=== PATIENT | female | born 1950 | race Caucasian/White ===

== ENCOUNTER 2020-01-29 23:42 | Emergency (ER) | payer MEDICARE, MEDICAID, SELFPAY ==
[2020-01-30] VITALS: BP 137/67; BP 146/78; PULSE 64; RESP 16; TEMP 37.1; O2SAT 96; BMI 64.2
--- NOTE | 2020-01-30 00:17 | XR_ITS ---
EXAMINATION: XR CHEST CLINICAL INFORMATION: Rule out CHF COMPARISON: None TECHNIQUE: Frontal view of the chest was obtained. FINDINGS: There is borderline cardiac enlargement with prominent left ventricle. There is no upper zone redistribution and no evidence to suggest CHF. No infiltrates, effusions or lung masses are seen. XR/XR chest 1V IMPRESSION: No acute intrathoracic disease. Is no radiographic evidence to suggest congestive heart failure.
--- NOTE | 2020-01-30 00:18 | ED.EXTPRO ---
HPI - Extremity Problem General Chief complaint: Extremity Problem <Andrea Lemus MD - Last Filed: 01/30/20 00:35> Stated complaint: gen weakness <Andrea Lemus MD - Last Filed: 01/30/20 00:35> Time Seen by Provider: 01/30/20 00:10 <Andrea Lemus MD - Last Filed: 01/30/20 00:35> Source: patient <Andrea Lemus MD - Last Filed: 01/30/20 00:35> Mode of arrival: EMS <Andrea Lemus MD - Last Filed: 01/30/20 00:35> Limitations: no limitations <Andrea Lemus MD - Last Filed: 01/30/20 00:35> History of Present Illness HPI Narrative: 69-year-old female came in by ambulance for 2 weeks history of progressively worsening of bilateral lower extremity swelling and pain, constant for the past 2 weeks, describes pain as burning sensation rated the pain as 4/10, no radiation of the pain, no other associated symptoms shortness of breath in particular. Nothing makes the pain better or worse. <Andrea Lemus MD - Last Filed: 01/30/20 00:35> Related Data Home medications: Home Medications Medication Instructions Recorded Confirmed carvedilol 1 tab PO BID 01/30/20 01/30/20 cetirizine 2 tab PO BEDTIME 01/30/20 01/30/20 dexlansoprazole [Dexilant] 1 cap PO DAILY 01/30/20 01/30/20 dicyclomine 10 mg PO BID 01/30/20 01/30/20 diphenoxylate-atropine 1 tab PO DAILY PRN 01/30/20 01/30/20 fluticasone propion-salmeterol 1 inh INHALATION BID 01/30/20 01/30/20 [Advair Diskus] hydrochlorothiazide 1 tab PO DAILY 01/30/20 01/30/20 levothyroxine 1 tab PO DAILY 01/30/20 01/30/20 pregabalin 1 cap PO BID 01/30/20 01/30/20 ranitidine HCl mg 01/30/20 simvastatin 1 tab PO BEDTIME 01/30/20 01/30/20 <Andrea Lemus MD - Last Filed: 01/30/20 00:35> Allergies/Adverse reactions: Allergies Allergy/AdvReac Type Severity Reaction Status Date / Time celecoxib [From CELEBREX] Allergy Unknown RASH Verified 01/30/20 00:01 Latex, Natural Rubber Allergy Rash Verified 01/30/20 00:03 ibuprofen [IBUPROFEN] AdvReac Intermediate RASH Verified 01/30/20 00:01 <Andrea Lemus MD - Last Filed: 01/30/20 00:35> Review of Systems Review of Systems: All other systems are reviewed and are negative Constitutional: Reports as per HPI and Reports no additional constitutional complaints Eyes: Reports as per HPI and Reports no additional eye complaints Reports system reviewed and no additional complaints, except as documented Cardiovascular: Reports as per HPI and Reports no additional cardiovascular complaints Respiratory: Reports as per HPI and Reports no additional respiratory complaints Gastrointestinal: Reports as per HPI and Reports no additional gastrointestinal complaints Genitourinary: Reports no additional female genitourinary complaints Musculoskeletal: Reports no additional musculoskeletal complaints Skin/Breast: Reports system reviewed and no additional complaints, except as docu Psychiatric: Reports no additional psychiatric complaints Endocrine: Reports no additional endocrine complaints Hematologic/Lymphatic: Reports no additional hematologic/lymphatic complaints Allergic/Immunologic: Reports no additional allergic/immunologic complaints Reports system reviewed and no additional complaints, except as documented and Reports Abnormal speech present <Andrea Lemus MD - Last Filed: 01/30/20 00:35> [facility] Past Medical History Medical History: Medical History Asthma Diarrhea GERD (gastroesophageal reflux disease) Hypercholesteremia Hypertension Neuropathy Seasonal allergies Thyroid activity decreased <Andrea Lemus MD - Last Filed: 01/30/20 00:35> Surgical History: Surgical History H/O: hysterectomy History of cholecystectomy <Andrea Lemus MD - Last Filed: 01/30/20 00:35> Social History Social History: Social History Alcohol intake: never Smoking Status: Never smoker Use of substances other than those prescribed or required for medical reasons: No Advance Directives: No <Andrea Lemus MD - Last Filed: 01/30/20 00:35> Physical Exam Vital Signs: Vital Signs: Vital Signs Temp Pulse Resp BP Pulse Ox 01/30/20 03:15 64 18 115/54 L 95 01/30/20 00:30 63 18 152/70 H 96 01/30/20 00:00 98.8 F 64 16 137/67 96 Body Mass Index 64.2 vital signs have been reviewed as normal and appeared to be correct. Blood pressure normal. Heart rate normal. Respiration rate normal. Temperature normal. Oxygen saturation normal. <Andrea Lemus MD - Last Filed: 01/30/20 00:35> Vital Signs: Vital Signs Temp Pulse Resp BP Pulse Ox 01/30/20 03:15 64 18 115/54 L 95 01/30/20 00:30 63 18 152/70 H 96 01/30/20 00:00 98.8 F 64 16 137/67 96 Body Mass Index 64.2 <Danay Rosado MD - Last Filed: 01/30/20 04:29> Appearance: Alert. Oriented X3. No acute distress. Head: Normal external exam. Normocephalic. Atraumatic. No Benson signs noted. No raccoon eyes noted Eyes: PERRLA. EOMI. Conjunctiva and sclera normal. Eyelids normal. ENT: EAC normal. TM's Normal. Pharynx normal. Uvula midline. Moist mucous membranes. No trismus noted. No drooling noted. No muffled voice noted. Neck: Normal inspection. Neck supple. FROM. No adenopathy. Thyroid Normal. No meningeal signs. No neck mass noted. CVS: Normal heart rate and rhythm. Heart sound normal. No murmurs noted. Pulses normal throughout. Respiratory: No respiratory distress. Painless inspiration. Breath sounds normal. No wheezes/rales/rhonchi noted. Chest nontender. No accessory muscle usage noted or decreased air movement noted. Abdomen: Soft and nontender. Bowel sounds normal in all 4 quadrants. No distention noted. No organomegaly noted. No visible injury noted. Back: No CVA tenderness. Full range of motion noted. Skin: Skin warm and dry. Normal skin color. Normal skin turgor. No rashes/lesions/lacerations noted. Extremities: lower extremity pitting edema +2 bilaterally. Extremities exhibit normal range of motion. Extremities nontender. Neuro: Oriented X 3. No motor deficit. No sensory deficit. Reflexes normal. <Andrea Lemus MD - Last Filed: 01/30/20 00:35> Course Course Course Narrative: bilateral lower extremity swelling for the past 2 weeks. Will check kidney function test, will check renal function test, will check BMP in chest x-ray. <Andrea Lemus MD - Last Filed: 01/30/20 00:35> Reevaluation(s) Reevaluation #1: review lab work without acute abnormalities noted on hematologic studies and chemistries reflect a slight improvement on the BUN levels but total protein and albumin levels are consistent with patient's undergoing evaluation by nephrology for which she has an appointment on 02/04. At this time and on repeat focused exam I conclude that the most likely cause of this patient's swelling in her bilateral lower extremities is due to poor oncotic pressure complicated by body habitus and underlying medical conditions. On clinical exam as well as chest x-ray results which were reviewed I do not think that the findings are consistent with congestive heart failure. All of these results and findings were discussed with the patient at bedside and she was discharged home in stable condition with instructions to follow-up with her primary care provider this morning to establish a follow-up appointment and discussed with her primary care provider a referral to Cardiology if deemed appropriate. <Danay Rosado MD - Last Filed: 01/30/20 04:29> Time: 04:22 <Danay Rosado MD - Last Filed: 01/30/20 04:29> MDM - Extremity (Nontraumatic) Lab Data Result diagrams: : 01/30/20 01:51 01/30/20 01:51 <Andrea Lemus MD - Last Filed: 01/30/20 00:35> Labs: Lab Results 01/30/20 01/30/20 01/30/20 Range/Units 01:20 01:51 01:51 WBC 8.3 (4.8-10.8) X10*3/uL RBC 4.80 (4.20-5.50) X10*6/uL Hgb 13.5 (12.0-16.0) g/dl Hct 40.9 (37-47) % MCV 85.2 (80-98) fL MCH 28.1 (27.0-33.0) pg MCHC 33.0 (31.0-35.0) g/dl RDW 14.9 (11.0-16.0) % Plt Count 269 (160-400) X10*3/uL MPV 10.6 (9.4-12.3) fL Immature Gran % (Auto) 0.2 (0.0-0.4) % Neut % (Auto) 58.3 (45-73) % Lymph % (Auto) 28.7 (20-40) % [place] % (Auto) 8.0 (2-11) % Eos % (Auto) 4.2 H (0-4) % Baso % (Auto) 0.6 (0-2) % Lymph # (Auto) 2.4 (1.2-4.9) X10*3/uL [place] # (Auto) 0.7 (0.1-1.2) X10*3/uL Eos # (Auto) 0.4 (0.0-0.4) X10*3/uL Baso # (Auto) 0.1 (0.0-0.2) X10*3/uL Abs Immat Gran (auto) 0.02 (0.00-0.03) X10*3/uL Absolute Neuts (auto) 4.9 (2.0-8.3) X10*3/uL Absolute Nucleated RBC 0.000 (0.0-0.012) X10*3/uL Nucleated RBC % (auto) 0.0 (0.0-0.2) /100WBC Sodium 137 (135-145) mmol/L Potassium 3.7 (3.3-5.1) mmol/l Chloride 98 (96-108) mmol/L Carbon Dioxide 33 H (22-29) mmol/L Anion Gap 10 L (12-20) BUN 22 H (9-16) mg/dL Creatinine 0.87 (0.5-1.4) mg/dL Estim Creat Clear Calc 99.8 Estimated GFR > 60 Random Glucose 99 (60-115) mg/dL Calcium 7.6 L (8.4-10.2) mg/dL Total Bilirubin 0.3 (0.0-1.0) mg/dL Direct Bilirubin < 0.2 (0.0-0.5) mg/dL AST 15 (5-31) U/L ALT 8 (0-31) U/L Alkaline Phosphatase 95 (39-117) U/L B-Natriuretic Peptide (<100) pg/mL Total Protein 5.2 L (6.5-8.0) g/dL Albumin 2.6 L (3.5-5.0) g/dL Lipase 42 (8-78) U/L Coronavirus (PCR) NEGATIVE (Negative) 01/30/20 Range/Units 01:51 WBC (4.8-10.8) X10*3/uL RBC (4.20-5.50) X10*6/uL Hgb (12.0-16.0) g/dl Hct (37-47) % MCV (80-98) fL MCH (27.0-33.0) pg MCHC (31.0-35.0) g/dl RDW (11.0-16.0) % Plt Count (160-400) X10*3/uL MPV (9.4-12.3) fL Immature Gran % (Auto) (0.0-0.4) % Neut % (Auto) (45-73) % Lymph % (Auto) (20-40) % [place] % (Auto) (2-11) % Eos % (Auto) (0-4) % Baso % (Auto) (0-2) % Lymph # (Auto) (1.2-4.9) X10*3/uL [place] # (Auto) (0.1-1.2) X10*3/uL Eos # (Auto) (0.0-0.4) X10*3/uL Baso # (Auto) (0.0-0.2) X10*3/uL Abs Immat Gran (auto) (0.00-0.03) X10*3/uL Absolute Neuts (auto) (2.0-8.3) X10*3/uL Absolute Nucleated RBC (0.0-0.012) X10*3/uL Nucleated RBC % (auto) (0.0-0.2) /100WBC Sodium (135-145) mmol/L Potassium (3.3-5.1) mmol/l Chloride (96-108) mmol/L Carbon Dioxide (22-29) mmol/L Anion Gap (12-20) BUN (9-16) mg/dL Creatinine (0.5-1.4) mg/dL Estim Creat Clear Calc Estimated GFR Random Glucose (60-115) mg/dL Calcium (8.4-10.2) mg/dL Total Bilirubin (0.0-1.0) mg/dL Direct Bilirubin (0.0-0.5) mg/dL AST (5-31) U/L ALT (0-31) U/L Alkaline Phosphatase (39-117) U/L B-Natriuretic Peptide 41 (<100) pg/mL Total Protein (6.5-8.0) g/dL Albumin (3.5-5.0) g/dL Lipase (8-78) U/L Coronavirus (PCR) (Negative) <Andrea Lemus MD - Last Filed: 01/30/20 00:35> Lab Results 01/30/20 01/30/20 01/30/20 Range/Units 01:20 01:51 01:51 WBC 8.3 (4.8-10.8) X10*3/uL RBC 4.80 (4.20-5.50) X10*6/uL Hgb 13.5 (12.0-16.0) g/dl Hct 40.9 (37-47) % MCV 85.2 (80-98) fL MCH 28.1 (27.0-33.0) pg MCHC 33.0 (31.0-35.0) g/dl RDW 14.9 (11.0-16.0) % Plt Count 269 (160-400) X10*3/uL MPV 10.6 (9.4-12.3) fL Immature Gran % (Auto) 0.2 (0.0-0.4) % Neut % (Auto) 58.3 (45-73) % Lymph % (Auto) 28.7 (20-40) % [place] % (Auto) 8.0 (2-11) % Eos % (Auto) 4.2 H (0-4) % Baso % (Auto) 0.6 (0-2) % Lymph # (Auto) 2.4 (1.2-4.9) X10*3/uL [place] # (Auto) 0.7 (0.1-1.2) X10*3/uL Eos # (Auto) 0.4 (0.0-0.4) X10*3/uL Baso # (Auto) 0.1 (0.0-0.2) X10*3/uL Abs Immat Gran (auto) 0.02 (0.00-0.03) X10*3/uL Absolute Neuts (auto) 4.9 (2.0-8.3) X10*3/uL Absolute Nucleated RBC 0.000 (0.0-0.012) X10*3/uL Nucleated RBC % (auto) 0.0 (0.0-0.2) /100WBC Sodium 137 (135-145) mmol/L Potassium 3.7 (3.3-5.1) mmol/l Chloride 98 (96-108) mmol/L Carbon Dioxide 33 H (22-29) mmol/L Anion Gap 10 L (12-20) BUN 22 H (9-16) mg/dL Creatinine 0.87 (0.5-1.4) mg/dL Estim Creat Clear Calc 99.8 Estimated GFR > 60 Random Glucose 99 (60-115) mg/dL Calcium 7.6 L (8.4-10.2) mg/dL Total Bilirubin 0.3 (0.0-1.0) mg/dL Direct Bilirubin < 0.2 (0.0-0.5) mg/dL AST 15 (5-31) U/L ALT 8 (0-31) U/L Alkaline Phosphatase 95 (39-117) U/L B-Natriuretic Peptide (<100) pg/mL Total Protein 5.2 L (6.5-8.0) g/dL Albumin 2.6 L (3.5-5.0) g/dL Lipase 42 (8-78) U/L Coronavirus (PCR) NEGATIVE (Negative) 01/30/20 Range/Units 01:51 WBC (4.8-10.8) X10*3/uL RBC (4.20-5.50) X10*6/uL Hgb (12.0-16.0) g/dl Hct (37-47) % MCV (80-98) fL MCH (27.0-33.0) pg MCHC (31.0-35.0) g/dl RDW (11.0-16.0) % Plt Count (160-400) X10*3/uL MPV (9.4-12.3) fL Immature Gran % (Auto) (0.0-0.4) % Neut % (Auto) (45-73) % Lymph % (Auto) (20-40) % [place] % (Auto) (2-11) % Eos % (Auto) (0-4) % Baso % (Auto) (0-2) % Lymph # (Auto) (1.2-4.9) X10*3/uL [place] # (Auto) (0.1-1.2) X10*3/uL Eos # (Auto) (0.0-0.4) X10*3/uL Baso # (Auto) (0.0-0.2) X10*3/uL Abs Immat Gran (auto) (0.00-0.03) X10*3/uL Absolute Neuts (auto) (2.0-8.3) X10*3/uL Absolute Nucleated RBC (0.0-0.012) X10*3/uL Nucleated RBC % (auto) (0.0-0.2) /100WBC Sodium (135-145) mmol/L Potassium (3.3-5.1) mmol/l Chloride (96-108) mmol/L Carbon Dioxide (22-29) mmol/L Anion Gap (12-20) BUN (9-16) mg/dL Creatinine (0.5-1.4) mg/dL Estim Creat Clear Calc Estimated GFR Random Glucose (60-115) mg/dL Calcium (8.4-10.2) mg/dL Total Bilirubin (0.0-1.0) mg/dL Direct Bilirubin (0.0-0.5) mg/dL AST (5-31) U/L ALT (0-31) U/L Alkaline Phosphatase (39-117) U/L B-Natriuretic Peptide 41 (<100) pg/mL Total Protein (6.5-8.0) g/dL Albumin (3.5-5.0) g/dL Lipase (8-78) U/L Coronavirus (PCR) (Negative) <Danay Rosado MD - Last Filed: 01/30/20 04:29> Discharge Plan Discharge Clinical Impression: Lower extremity edema <Andrea Lemus MD - Last Filed: 01/30/20 00:35> Patient Disposition: Home, Self-Care <Andrea Lemus MD - Last Filed: 01/30/20 00:35> Instructions: Leg Edema (ED) <Andrea Lemus MD - Last Filed: 01/30/20 00:35> Additional Instructions: 1. resume all home medications as prescribed. 2. please call the office of your primary care provider this morning to establish a follow-up appointment for further outpatient evaluation and management of your bilateral lower extremity edema. The patient and/or family acknowledge understanding of results (as applicable), diagnosis, treatment plan, need for follow up, and symptoms that should prompt a return to the emergency room. <Andrea Lemus MD - Last Filed: 01/30/20 00:35> Prescriptions: No Action fluticasone propion-salmeterol [Advair Diskus] 250-50 mcg/dose Blister With Device 1 inh INHALATION BID RF: 0 carvedilol 12.5 mg tablet 1 tab PO BID RF: 0 cetirizine 10 mg tablet 2 tab PO BEDTIME RF: 0 simvastatin 5 mg tablet 1 tab PO BEDTIME RF: 0 levothyroxine 50 mcg tablet 1 tab PO DAILY RF: 0 ranitidine HCl 150 mg Tablet RF: 0 hydrochlorothiazide 25 mg tablet 1 tab PO DAILY RF: 0 dicyclomine 10 mg Capsule 10 mg PO BID RF: 0 pregabalin 150 mg capsule 1 cap PO BID RF: 0 Dexilant 60 mg capsule,biphase delayed releas 1 cap PO DAILY RF: 0 diphenoxylate-atropine 2.5-0.025 mg Tablet 1 tab PO DAILY PRN (Reason: Diarrhea) RF: 0 <Andrea Lemus MD - Last Filed: 01/30/20 00:35> Referrals: Bryanna Gama MD [Physician] - 2 days (Bilateral lower extremity edema, not c/w CHF) <Andrea Lemus MD - Last Filed: 01/30/20 00:35> Sign Out Sign Out Data: Sign Out Comment: lower ext. swelling for 2 weeks, check labs and dispo accordingly. Last updated by Andrea Lemus MD at 01/30/20 01:25 <Andrea Lemus MD - Last Filed: 01/30/20 00:35>
[2020-01-30 00:30] VITALS: BP 152/70; PULSE 63; RESP 18; O2SAT 96
[2020-01-30 01:55] LABS: Basophils Absolute Auto 0.1 X10*3/uL (0.0-0.2); Basophils Percent Auto 0.6 % (0-2); Eosinophils Absolute Auto 0.4 X10*3/uL (0.0-0.4); Eosinophils Percent Auto 4.2 % (0-4); Hematocrit 40.9 % (37-47); Hemoglobin 13.5 g/dl (12.0-16.0); Imm Gran Abs Auto 0.02 X10*3/uL (0.00-0.03); Imm Gran Pct Auto 0.2 % (0.0-0.4); Lymphocytes Absolute Auto 2.4 X10*3/uL (1.2-4.9); Lymphocytes Percent Auto 28.7 % (20-40); MANUAL DIFF FLAG NO; Mean Corpuscular Hemoglobin 28.1 pg (27.0-33.0); Mean Corpuscular Volume 85.2 fL (80-98); Mean Platelet Volume 10.6 fL (9.4-12.3); Monocytes Absolute Auto 0.7 X10*3/uL (0.1-1.2); Neutrophils Absolute Auto 4.9 X10*3/uL (2.0-8.3); Neutrophils Percent Auto 58.3 % (45-73); Platelet Count 269 X10*3/uL (160-400); Red Cell Distribution Width 14.9 % (11.0-16.0); White Blood Count 8.3 X10*3/uL (4.8-10.8)
[2020-01-30 02:19] LABS: Alanine Aminotransferase 8 U/L (0-31); Albumin Level 2.6 g/dL (3.5-5.0); Alkaline Phosphatase 95 U/L (39-117); Anion Gap 10 (12-20); Aspartate Amino Transferase 15 U/L (5-31); Bilirubin Direct < 0.2 mg/dL (0.0-0.5); Bilirubin Total 0.3 mg/dL (0.0-1.0); Blood Urea Nitrogen 22 mg/dL (9-16); Calcium 7.6 mg/dL (8.4-10.2); Carbon Dioxide 33 mmol/L (22-29); Chloride 98 mmol/L (96-108); Creatinine Clr Calc Pharmacy 99.8; Estimated Glomerular Filt Rate > 60; Glucose Random 99 mg/dL (60-115); Lipase 42 U/L (8-78); Potassium 3.7 mmol/l (3.3-5.1); Sodium 137 mmol/L (135-145); Total Protein 5.2 g/dL (6.5-8.0)
[2020-01-30 02:21] LABS: B Type Natriuretic Peptide 41 pg/mL (<100)
[2020-01-30 02:35] LABS: SARS COV2 PCR INHOUSE NEGATIVE (Negative)
[2020-01-30 03:15] VITALS: BP 115/54; PULSE 64; RESP 18; O2SAT 95
== END 2020-01-30 05:16 | disposition home or self-care (01) ==
PROVIDERS: Emergency Provider Emergency Medicine
DX: R60.0 Localized edema (principal); Z20.828 Contact with and (suspected) exposure to other viral communicable diseases; M79.662 Pain in left lower leg; M79.661 Pain in right lower leg; I10 Essential (primary) hypertension; Z79.899 Other long term (current) drug therapy
CPT/HCPCS: 36415; 71045; 80048; 80076; 83690; 83880; 85025; 87635; 99283; 99284

== ENCOUNTER 2020-07-30 01:27 | Inpatient (IN) | payer MEDICARE, MEDICAID, SELFPAY ==
[2020-07-30] VITALS (21 sets, daily range): BP systolic 106–180; BP diastolic 49–107; PULSE 68–86; RESP 9–21; TEMP 36.7–37.1; O2SAT 81–100; BMI 62.1
--- NOTE | ~2020-07-30 | CT_ITS ---
EXAMINATION: CT ANGIOGRAM OF THE CHEST WITH AND WITHOUT CONTRAST (CT PULMONARY ANGIOGRAM FOR PE) CLINICAL INFORMATION: Reason for Exam hypoxia COMPARISON: Radiographs from the same date. Abdominal CT dated 01/21/2019 TECHNIQUE: Prior to contrast administration, noncontrast localization images were obtained. Subsequently, multidetector volumetric imaging was performed from the thoracic inlet to below the diaphragms following the administration of 100 mL Omnipaque 350 intravenous contrast. No contrast reaction reported Sagittal, coronal, and MIP oblique sagittal reformatted images were obtained on the CT workstation, uploaded to PACS, and reviewed. This CT examination was performed using dose optimization techniques as appropriate, variously including the following: *Automated exposure control *Adjustment of mA and/or kV according to patient size (this includes techniques or standardized protocols for targeted exams where dose is matched to indication/reason for exam; i.e. extremities or head) *Use of iterative reconstruction technique Total exam dose-length product 560 mGy-cm FINDINGS: QUALITY OF STUDY/CONTRAST BOLUS: Satisfactory to the proximal segmental level. Evaluation of the more distal pulmonary arteries is limited by bolus timing and respiratory motion. PULMONARY ARTERIES: No central or proximal segmental pulmonary emboli. THORACIC AORTA: No aneurysm or dissection. Mild atherosclerotic calcifications in the descending thoracic aorta. LUNG: There is airspace consolidation within the superior segments of the bilateral lower lobes in addition to the posterior basilar segments. Air bronchograms are present in this region. No appreciable bronchial opacities are identified. There are more patchy groundglass airspace opacities in a perihilar distribution bilaterally throughout all lobes. No discrete nodules. Assessment of the pulmonary parenchyma somewhat limited by respiratory motion. PLEURA: No effusions. MEDIASTINUM: There is a small to moderate mixed type hiatal hernia. The esophagus is diffusely fluid-filled, consistent with gastroesophageal reflux. Heart is within normal limits in size. No pericardial effusion. No adenopathy. No evidence of septal bowing or right heart strain. CHEST WALL/AXILLA: No axillary or internal mammary lymphadenopathy. OSSEOUS STRUCTURES: There is diffuse ankylosis of the thoracic spine both of the vertebral bodies and posterior elements. This has the appearance of ankylosing spondylitis, though diffuse idiopathic skeletal hyperostosis could also have this appearance. No acute fractures are identified. Mild hyperkyphosis and mild to moderate superimposed degenerative disc disease. UPPER ABDOMEN: Cholecystectomy clips are present in the gallbladder fossa. No reflux of contrast into the hepatic veins to suggest elevated right heart pressures. CT/CT angio chest PE protocol IMPRESSION: 1. No evidence of pulmonary emboli to the proximal segmental level. Assessment of the more distal branches is limited by respiratory motion. 2. Dependent consolidation within the segmental consolidation within the lower lobes bilaterally with more patchy multifocal perihilar groundglass opacities. This finding may be due to multifocal pneumonia. Aspiration is also on the differential given the dependent nature of the consolidations, though the airways appear relatively clear. Imaging features can be seen with COVID-19 pneumonia, though are nonspecific and can occur with a variety of infectious and noninfectious processes. 3. Small to moderate-sized mixed type hiatal hernia with a mildly distended and fluid-filled thoracic esophagus, suggesting gastroesophageal reflux. The poses to aspiration. VTE: negative
--- NOTE | ~2020-07-30 | XR_ITS ---
EXAMINATION: XR CHEST CLINICAL INFORMATION: Dyspnea COMPARISON: 01/30/2020 TECHNIQUE: Frontal view of the chest was obtained. FINDINGS: Cardiac leads overlie the chest. Lung volumes are low. Bronchial wall thickening noted. There is no focal consolidation, edema, or effusion. No pneumothorax. The cardiomediastinal silhouette is within normal limits. No acute osseous abnormality. XR/XR chest 1V IMPRESSION: No dense consolidation. Bronchial wall thickening can be seen with a small airways process such as asthma or atypical/viral infection.
--- NOTE | ~2020-07-30 | XR_ITS ---
EXAMINATION: XR CHEST CLINICAL INFORMATION: Evaluate for pneumonia COMPARISON: CT scan of July 30, 2020 and chest x-ray of July 30, 2020 TECHNIQUE: AP portable view of the chest was obtained. FINDINGS: There are some bilateral regions of patchy disease present with slightly more confluent region of disease in the retrocardiac region of the left lower lung. No pneumothorax or significant pleural effusion. Heart normal size. No evidence of pulmonary edema. Findings appear similar to previous chest x-ray. XR/XR chest 1V IMPRESSION: Bilateral regions of interstitial and airspace disease.
--- NOTE | 2020-07-30 01:46 | ECG_ITS ---
Test Reason : SOB Blood Pressure : / mmHG Vent. Rate : 082 BPM Atrial Rate : 082 BPM P-R Int : 230 ms QRS Dur : 112 ms QT Int : 424 ms P-R-T Axes : 073 -35 084 degrees QTc Int : 495 ms Sinus rhythm with 1st degree A-V block Left axis deviation Moderate voltage criteria for LVH, may be normal variant Prolonged QT Abnormal ECG When compared with ECG of 21-JAN-2019 16:17, DC interval has increased Referred By: Danay Rosado Electronically Signed By:Jem Viera
--- NOTE | 2020-07-30 01:49 | ED_ITS ---
HPI - SOB/Dyspnea General Chief Complaint: Dyspnea Stated Complaint: diff breathing s/p vomiting Time Seen by Provider: 07/30/20 01:37 Source: patient Mode of arrival: EMS History of Present Illness HPI Narrative: 69-year-old female brought in by EMS after she states that she suddenly had an episode of nausea and vomiting and is unclear why as she states she has not been suffering from fever, chills, abdominal discomfort, diarrhea, but does states she has had urinary burning. She states that after the episode of vomiting she developed difficulty breathing but otherwise denies chest pain/palpitations. Related Data Home Medications Medication Instructions Recorded Confirmed carvedilol 1 tab PO BID 01/30/20 01/30/20 cetirizine 2 tab PO BEDTIME 01/30/20 01/30/20 dexlansoprazole [Dexilant] 1 cap PO DAILY 01/30/20 01/30/20 dicyclomine 10 mg PO BID 01/30/20 01/30/20 diphenoxylate-atropine 1 tab PO DAILY PRN 01/30/20 01/30/20 fluticasone propion-salmeterol 1 inh INHALATION BID 01/30/20 01/30/20 [Advair Diskus] hydrochlorothiazide 1 tab PO DAILY 01/30/20 01/30/20 levothyroxine 1 tab PO DAILY 01/30/20 01/30/20 pregabalin 1 cap PO BID 01/30/20 01/30/20 ranitidine HCl mg 01/30/20 simvastatin 1 tab PO BEDTIME 01/30/20 01/30/20 Allergies Allergy/AdvReac Type Severity Reaction Status Date / Time celecoxib [From CELEBREX] Allergy Unknown RASH Verified 07/30/20 06:01 Latex, Natural Rubber Allergy Rash Verified 07/30/20 06:01 ibuprofen [IBUPROFEN] AdvReac Intermediate RASH Verified 07/30/20 06:01 Review of Systems Review of Systems: Pertinent positives and negatives as stated in HPI 10 point review of systems is otherwise negative. [facility] Past Medical History Source: nursing notes reviewed Medical History Asthma Diarrhea GERD (gastroesophageal reflux disease) Hypercholesteremia Hypertension Neuropathy Seasonal allergies Thyroid activity decreased Surgical History H/O: hysterectomy History of cholecystectomy Social History Social History Alcohol intake: never Smoking Status: Never smoker Advance Directives: No Physical Exam Vital Signs: Vital Signs: Last Vital Signs Temp 98.7 F 07/30/20 01:35 Pulse 78 07/30/20 05:58 Resp 12 07/30/20 06:02 BP 144/72 H 07/30/20 04:30 Pulse Ox 93 07/30/20 06:12 Body Mass Index 62.1 VITAL SIGNS: Reviewed. GENERAL: Morbidly obese, Well developed, appears older than stated age, in no acute distress. HEAD: Normocephalic/atraumatic, EYES: PERRLA, EOMI OROPHARYNX: no oral lesions noted, posterior pharynx clear, moist mucosa NECK: Supple, no adenopathy LUNGS: Increased work of breathing, no retractions, decrease breath sounds bibasilar, some expiratory wheezing as well as scattered rhonchi noted. SpO2<90> her% non-rebreather CARDIOVASCULAR: Regular rate and rhythm without noted murmurs ABDOMEN: Obese, Soft, non-tender, non-distended with bowel sounds. NEUROLOGIC: Alert and oriented x 4. Strength and sensation to light touch were grossly intact x 4. Course Course Course Narrative: 69-year-old female with history and clinical presentation consistent with possible reactive airway after irritation by vomiting, asthma exacerbation, UTI, COVID-19, ?aspiration pneumonia, CHF exacerbation. On review of all investigations patient has had acute respiratory failure secondary to asthma exacerbation likely induced by episode of vomiting and questionable partial aspiration. COVID-19 is negative and patient was treated with antibiotics, however lactic acid and blood pressure remained stable therefore fluids were held. This case was discussed with inpatient hospitalist team who is agreeable for admission.Patient has had no for further episodes of nausea vomiting and currently has no acute complaints. However, she is still requiring high-flow supplemental oxygen at this time. MDM - SOB/Dyspnea Lab Data Result diagrams: 07/30/20 02:18 07/30/20 02:18 Labs: Lab Results 07/30/20 07/30/20 07/30/20 Range/Units 02:18 02:18 02:18 WBC 9.7 (4.8-10.8) X10*3/uL RBC 4.42 (4.20-5.50) X10*6/uL Hgb 12.8 (12.0-16.0) g/dl Hct 40.1 (37-47) % MCV 90.7 (80-98) fL MCH 29.0 (27.0-33.0) pg MCHC 31.9 (31.0-35.0) g/dl RDW 13.6 (11.0-16.0) % Plt Count 264 (160-400) X10*3/uL MPV 10.4 (9.4-12.3) fL Immature Gran % (Auto) 0.2 (0.0-0.4) % Neut % (Auto) 88.2 H (45-73) % Lymph % (Auto) 7.5 L (20-40) % Hamilton % (Auto) 2.5 (2-11) % Eos % (Auto) 1.4 (0-4) % Baso % (Auto) 0.2 (0-2) % Lymph # (Auto) 0.7 L (1.2-4.9) X10*3/uL Hamilton # (Auto) 0.2 (0.1-1.2) X10*3/uL Eos # (Auto) 0.1 (0.0-0.4) X10*3/uL Baso # (Auto) 0.0 (0.0-0.2) X10*3/uL Abs Immat Gran (auto) 0.02 (0.00-0.03) X10*3/uL Absolute Neuts (auto) 8.5 H (2.0-8.3) X10*3/uL Absolute Nucleated RBC 0.000 (0.0-0.012) X10*3/uL Nucleated RBC % (auto) 0.0 (0.0-0.2) /100WBC VBG pH (7.32-7.43) VBG pCO2 mmHg VBG pO2 mmHg VBG HCO3 (22-26) mmol/L VBG O2 Saturation % VBG Base Excess mmol/L Sodium 139 (135-145) mmol/L Potassium 4.6 (3.3-5.1) mmol/L Chloride 100 (96-108) mmol/L Carbon Dioxide 27 (22-29) mmol/L Anion Gap 17 (12-20) BUN 27 H (9-16) mg/dL Creatinine 1.13 (0.5-1.4) mg/dL Estim Creat Clear Calc 75.1 Estimated GFR 48 Random Glucose 138 H D (60-115) mg/dL Lactic Acid (0.5-2.0) mmol/L Calcium 8.2 L D (8.4-10.2) mg/dL Magnesium 1.9 (1.6-2.6) mg/dL Total Bilirubin 0.9 (0.0-1.0) mg/dL AST 17 (5-31) U/L ALT 10 (0-31) U/L Alkaline Phosphatase 96 (39-117) U/L B-Natriuretic Peptide (<100) pg/mL Total Protein 6.3 L D (6.5-8.0) g/dL Albumin 3.3 L D (3.5-5.0) g/dL Lipase 18 (8-78) U/L Urine Color Urine Appearance Urine pH (5.0-8.0) Ur Specific Skippers (1.005-1.025) Urine Protein (NEG-TRACE) MG/DL Urine Glucose (UA) (NEG) MG/DL Urine Ketones (NEG) MG/DL Urine Blood (NEG) Urine Nitrite (NEG) Ur Leukocyte Esterase (NEG) Urine RBC (0) /HPF Urine WBC (0-4) /HPF Ur Squamous Epith Cells /LPF Amorphous Sediment /LPF Urine Bacteria /LPF Urine Mucus /LPF Urine Yeast /HPF Coronavirus (PCR) NEGATIVE (Negative) Influenza Type A (PCR) NEGATIVE (Negative) Influenza Type B (PCR) NEGATIVE (Negative) RSV RNA Qual (PCR) NEGATIVE (Negative) 07/30/20 07/30/20 07/30/20 Range/Units 02:18 02:18 02:18 WBC (4.8-10.8) X10*3/uL RBC (4.20-5.50) X10*6/uL Hgb (12.0-16.0) g/dl Hct (37-47) % MCV (80-98) fL MCH (27.0-33.0) pg MCHC (31.0-35.0) g/dl RDW (11.0-16.0) % Plt Count (160-400) X10*3/uL MPV (9.4-12.3) fL Immature Gran % (Auto) (0.0-0.4) % Neut % (Auto) (45-73) % Lymph % (Auto) (20-40) % Hamilton % (Auto) (2-11) % Eos % (Auto) (0-4) % Baso % (Auto) (0-2) % Lymph # (Auto) (1.2-4.9) X10*3/uL Hamilton # (Auto) (0.1-1.2) X10*3/uL Eos # (Auto) (0.0-0.4) X10*3/uL Baso # (Auto) (0.0-0.2) X10*3/uL Abs Immat Gran (auto) (0.00-0.03) X10*3/uL Absolute Neuts (auto) (2.0-8.3) X10*3/uL Absolute Nucleated RBC (0.0-0.012) X10*3/uL Nucleated RBC % (auto) (0.0-0.2) /100WBC VBG pH (7.32-7.43) VBG pCO2 mmHg VBG pO2 mmHg VBG HCO3 (22-26) mmol/L VBG O2 Saturation % VBG Base Excess mmol/L Sodium (135-145) mmol/L Potassium (3.3-5.1) mmol/L Chloride (96-108) mmol/L Carbon Dioxide (22-29) mmol/L Anion Gap (12-20) BUN (9-16) mg/dL Creatinine (0.5-1.4) mg/dL Estim Creat Clear Calc Estimated GFR Random Glucose (60-115) mg/dL Lactic Acid 0.7 (0.5-2.0) mmol/L Calcium (8.4-10.2) mg/dL Magnesium Cancelled (1.6-2.6) mg/dL Total Bilirubin (0.0-1.0) mg/dL AST (5-31) U/L ALT (0-31) U/L Alkaline Phosphatase (39-117) U/L B-Natriuretic Peptide 60 (<100) pg/mL Total Protein (6.5-8.0) g/dL Albumin (3.5-5.0) g/dL Lipase Cancelled (8-78) U/L Urine Color Urine Appearance Urine pH (5.0-8.0) Ur Specific Skippers (1.005-1.025) Urine Protein (NEG-TRACE) MG/DL Urine Glucose (UA) (NEG) MG/DL Urine Ketones (NEG) MG/DL Urine Blood (NEG) Urine Nitrite (NEG) Ur Leukocyte Esterase (NEG) Urine RBC (0) /HPF Urine WBC (0-4) /HPF Ur Squamous Epith Cells /LPF Amorphous Sediment /LPF Urine Bacteria /LPF Urine Mucus /LPF Urine Yeast /HPF Coronavirus (PCR) (Negative) Influenza Type A (PCR) (Negative) Influenza Type B (PCR) (Negative) RSV RNA Qual (PCR) (Negative) 07/30/20 07/30/20 Range/Units 02:20 02:48 WBC (4.8-10.8) X10*3/uL RBC (4.20-5.50) X10*6/uL Hgb (12.0-16.0) g/dl Hct (37-47) % MCV (80-98) fL MCH (27.0-33.0) pg MCHC (31.0-35.0) g/dl RDW (11.0-16.0) % Plt Count (160-400) X10*3/uL MPV (9.4-12.3) fL Immature Gran % (Auto) (0.0-0.4) % Neut % (Auto) (45-73) % Lymph % (Auto) (20-40) % Hamilton % (Auto) (2-11) % Eos % (Auto) (0-4) % Baso % (Auto) (0-2) % Lymph # (Auto) (1.2-4.9) X10*3/uL Hamilton # (Auto) (0.1-1.2) X10*3/uL Eos # (Auto) (0.0-0.4) X10*3/uL Baso # (Auto) (0.0-0.2) X10*3/uL Abs Immat Gran (auto) (0.00-0.03) X10*3/uL Absolute Neuts (auto) (2.0-8.3) X10*3/uL Absolute Nucleated RBC (0.0-0.012) X10*3/uL Nucleated RBC % (auto) (0.0-0.2) /100WBC VBG pH 7.29 L (7.32-7.43) VBG pCO2 66 mmHg VBG pO2 44 mmHg VBG HCO3 32 H (22-26) mmol/L VBG O2 Saturation 69.0 % VBG Base Excess 3.6 mmol/L Sodium (135-145) mmol/L Potassium (3.3-5.1) mmol/L Chloride (96-108) mmol/L Carbon Dioxide (22-29) mmol/L Anion Gap (12-20) BUN (9-16) mg/dL Creatinine (0.5-1.4) mg/dL Estim Creat Clear Calc Estimated GFR Random Glucose (60-115) mg/dL Lactic Acid (0.5-2.0) mmol/L Calcium (8.4-10.2) mg/dL Magnesium (1.6-2.6) mg/dL Total Bilirubin (0.0-1.0) mg/dL AST (5-31) U/L ALT (0-31) U/L Alkaline Phosphatase (39-117) U/L B-Natriuretic Peptide (<100) pg/mL Total Protein (6.5-8.0) g/dL Albumin (3.5-5.0) g/dL Lipase (8-78) U/L Urine Color YELLOW Urine Appearance CLEAR Urine pH 5.5 (5.0-8.0) Ur Specific Skippers >= 1.030 H (1.005-1.025) Urine Protein 2+ H (NEG-TRACE) MG/DL Urine Glucose (UA) NEG (NEG) MG/DL Urine Ketones NEG (NEG) MG/DL Urine Blood 1+ H (NEG) Urine Nitrite NEG (NEG) Ur Leukocyte Esterase NEG (NEG) Urine RBC 5-9 H (0) /HPF Urine WBC 0-2 (0-4) /HPF Ur Squamous Epith Cells 1+ /LPF Amorphous Sediment TRACE /LPF Urine Bacteria NONE /LPF Urine Mucus 2+ /LPF Urine Yeast TRACE /HPF Coronavirus (PCR) (Negative) Influenza Type A (PCR) (Negative) Influenza Type B (PCR) (Negative) RSV RNA Qual (PCR) (Negative) ECG Data Attestation: I personally reviewed and interpreted this ECG as follows: Prior ECG tracings: available for review (01/21/2019 no acute changes on comparison) Interpretation: Sinus rhythm with first-degree AV block, HR -82, no evidence of acute ischemia, ND-230/QTC -495 Discharge Plan Discharge Clinical Impression: Asthma with exacerbation, Acute respiratory failure Patient Disposition: Admitted As Inpatient
--- NOTE | 2020-07-30 01:58 | PC.NURSE ---
patient was placed on high flow at 100% 02 to get the sp02 to 93%
[2020-07-30 02:28] LABS: Venous Blood Gas Refer to POC result
[2020-07-30 02:28] LABS: MANUAL DIFF FLAG NO
[2020-07-30 02:29] LABS: VBG Base Excess 3.6 mmol/L; VBG HCO3 32 mmol/L (22-26); VBG pCO2 66 mmHg; VBG pH 7.29 (7.32-7.43); VBG pO2 44 mmHg
[2020-07-30 02:31] LABS: Basophils Percent Auto 0.2 % (0-2); Eosinophils Absolute Auto 0.1 X10*3/uL (0.0-0.4); Eosinophils Percent Auto 1.4 % (0-4); Hematocrit 40.1 % (37-47); Hemoglobin 12.8 g/dl (12.0-16.0); Imm Gran Abs Auto 0.02 X10*3/uL (0.00-0.03); Imm Gran Pct Auto 0.2 % (0.0-0.4); Lymphocytes Absolute Auto 0.7 X10*3/uL (1.2-4.9); Lymphocytes Percent Auto 7.5 % (20-40); Mean Corpuscular HGB Conc 31.9 g/dl (31.0-35.0); Mean Corpuscular Volume 90.7 fL (80-98); Mean Platelet Volume 10.4 fL (9.4-12.3); Monocytes Absolute Auto 0.2 X10*3/uL (0.1-1.2); Monocytes Percent Auto 2.5 % (2-11); Neutrophils Absolute Auto 8.5 X10*3/uL (2.0-8.3); Neutrophils Percent Auto 88.2 % (45-73); Platelet Count 264 X10*3/uL (160-400); Red Blood Count 4.42 X10*6/uL (4.20-5.50); Red Cell Distribution Width 13.6 % (11.0-16.0); White Blood Count 9.7 X10*3/uL (4.8-10.8)
[2020-07-30 02:59] LABS: Lactic Acid 0.7 mmol/L (0.5-2.0)
[2020-07-30 03:01] LABS: Appearance Urine CLEAR; Color Urine YELLOW; Glucose Urine UA NEG (NEG); Leukocyte Esterase Urine NEG (NEG); Nitrite Urine NEG (NEG); PH 5.5 (5.0-8.0); Specific Gravity - Urine >= 1.030 (1.005-1.025); Urine Blood 1+ (NEG); Urine Ketones NEG (NEG); Urine Protein 2+ MG/DL (NEG-TRACE)
[2020-07-30 03:03] LABS: Alanine Aminotransferase 10 U/L (0-31); Albumin Level 3.3 g/dL (3.5-5.0); Alkaline Phosphatase 96 U/L (39-117); Anion Gap 17 (12-20); Aspartate Amino Transferase 17 U/L (5-31); Bilirubin Total 0.9 mg/dL (0.0-1.0); Blood Urea Nitrogen 27 mg/dL (9-16); Calcium 8.2 mg/dL (8.4-10.2); Carbon Dioxide 27 mmol/L (22-29); Chloride 100 mmol/L (96-108); Creatinine Clr Calc Pharmacy 75.1; Estimated Glomerular Filt Rate 48; Glucose Random 138 mg/dL (60-115); Potassium 4.6 mmol/L (3.3-5.1); Sodium 139 mmol/L (135-145); Total Protein 6.3 g/dL (6.5-8.0)
[2020-07-30 03:07] LABS: Lipase 18 U/L (8-78); Magnesium 1.9 mg/dL (1.6-2.6)
[2020-07-30 03:09] LABS: B Type Natriuretic Peptide 60 pg/mL (<100)
[2020-07-30 03:10] LABS: Influenza A PCR NEGATIVE (Negative); Influenza B PCR NEGATIVE (Negative); Resp Syncy Virus RNA Qual PCR NEGATIVE (Negative); SARS COV2 PCR INHOUSE NEGATIVE (Negative)
[2020-07-30 03:20] LABS: Mucus Urine 2+ /LPF; Squamous Epithelial Cell Urine 1+ /LPF; WBC Urine 0-2 /HPF (0-4)
[2020-07-30 03:21] LABS: Amorphous Sediment Urine TRACE /LPF
--- NOTE | 2020-07-30 03:30 | PC.NURSE ---
Dr Rosado is aware that an IV was unable to be obtained- per the patient she normally needs an US guided IV- Dr Rosado will place
--- NOTE | 2020-07-30 05:12 | PC.NURSE ---
Candace RN is at bedside attemting to obtain an IV
[2020-07-30] MEDS: methylPREDNISolone Sod Succ 125 MG/2 ML VIAL IVPUSH (05:35)
--- NOTE | 2020-07-30 05:49 | PC.NURSE ---
patient was placed on 6L via NC- sp02 decreased frm 7-100% on the highflow at 90% FI02 down to 90-91% on 6L via NC. Patient was placed back on a highflow 02
[2020-07-30] MEDS: Albuterol Sulfate (0.083%) 2.5 MG/3 ML VIAL.NEB 5 MG INHALE (06:10)
[2020-07-30] MEDS: Piperacillin Sodium/Tazobactam 3.375 GM in 0.9 % Sodium Chloride 50 ML IV (06:26)
[2020-07-30 09:07] LABS: ABG Refer to POC result
[2020-07-30 09:07] LABS: ABG Base Excess 3.4 mmol/L; ABG HCO3 31 mmol/L (22-26); ABG pCO2 62 mmHg (32-45); ABG pCO2 TC 61 mmHg (32-45); ABG pH 7.31 (7.35-7.45); ABG pH TC 7.31 (7.35-7.45); ABG pO2 56 mmHg (83-108); ABG pO2 TC 55 (83-108)
--- NOTE | 2020-07-30 10:14 | PM.IMHP ---
History of Present Illness Date of Service: 07/30/20 Chief Complaint: shortness of breath 69-year-old female morbidly obese BMI 62, MISSY uses biPAP at home, HTN, , hypothyroidism, GERD, likly hypoventilation syndrome. She presented with an episode of nause and vomitting without other abdominal complaint . She was noted to be in acute hyhpoxic respiratory failure, and ABG showed CO2 retention. She was tried on BiPAP in ED and remained very somnolent and therefore requested an ICU evaluation. Review of Systems Review of Systems: Yes Unobtainable due to mental status (was very somnolent at time of evaluation) [facility] Medical History Asthma Diarrhea GERD (gastroesophageal reflux disease) Hypercholesteremia Hypertension Neuropathy Seasonal allergies Thyroid activity decreased Surgical History H/O: hysterectomy History of cholecystectomy Social History Household Members: Other Housing: Apartment Alcohol intake: unknown Smoking Status: Never smoker service: No Current occupational status: retired Meds Allergies Allergy/AdvReac Type Severity Reaction Status Date / Time celecoxib [From CELEBREX] Allergy Unknown RASH Verified 07/30/20 06:01 Latex, Natural Rubber Allergy Rash Verified 07/30/20 06:01 ibuprofen [IBUPROFEN] AdvReac Intermediate RASH Verified 07/30/20 06:01 Active Medications: Current Medications Generic Name Dose Route Start Last Admin Trade Name Freq PRN Reason Stop Dose Admin Enoxaparin Sodium 40 mg 07/30/20 10:15 Enoxaparin Sodium 40 Mg/0.4 Ml Syringe SUBCUT Q24H [facility] Pharmacy Consult 1 each 07/30/20 07:02 Consult Rx Perform Med Rec MISCELLANE ONCE PRN Consult order Sodium Chloride 3 ml 07/30/20 16:00 0.9 % Sodium Chloride Flush 3 Ml Syringe IVFLUSH QSHIFT [facility] Home Medications Medication Instructions Recorded Confirmed Last Taken Type dexlansoprazole [Dexilant] 60 mg PO DAILY 01/30/20 07/30/20 Unknown History diphenoxylate-atropine 1 tab PO TID PRN 01/30/20 07/30/20 01/29/20 11:45 History hydrochlorothiazide 1 tab PO DAILY 01/30/20 07/30/20 Unknown History levothyroxine 1 tab PO DAILY 01/30/20 07/30/20 Unknown History pregabalin 1 cap PO BID 01/30/20 07/30/20 Unknown History simvastatin 5 mg PO BEDTIME 01/30/20 07/30/20 Unknown History atorvastatin 1 tab PO DAILY 07/30/20 07/30/20 Unknown History carvedilol 1 tab PO BID 07/30/20 07/30/20 Unknown History ketoconazole 1 appl TOPICAL BID 07/30/20 07/30/20 Unknown History losartan 1 tab PO DAILY 07/30/20 07/30/20 Unknown History triamcinolone acetonide [Nasal 2 spray INTRANASAL DAILY 07/30/20 07/30/20 Unknown History Allergy] Physical Exam Vital Signs and Narrative: Vital Signs: Last Vital Signs Temp 98.7 F 07/30/20 01:35 Pulse 78 07/30/20 08:00 Resp 19 07/30/20 09:33 BP 128/69 07/30/20 08:00 Pulse Ox 90 L 07/30/20 08:00 Body Mass Index 62.1 Const: Other: Constitutional somnolent but arousable and falls back to sleep, morbidly obese Neck Supple, No lymphadenopathy Cardiovascular RRR, No M/R/G, S1 S2, No S3 S4, No pedal edema Respiratory Lungs clear, No respiratory distress Gastrointestinal Non tender, Non-distended Skin No rash Neurological Alert & oriented x3 Psychological Appropriate affect Results Labs CBC and Chem 7: 07/31/20 05:39 07/31/20 05:39 Labs: Laboratory Results - last 24 hr 07/30/20 07/30/20 07/30/20 02:18 02:18 02:18 MCV 90.7 MCH 29.0 MCHC 31.9 RDW 13.6 Plt Count 264 MPV 10.4 Immature Gran % (Auto) 0.2 Neut % (Auto) 88.2 H Lymph % (Auto) 7.5 L Barnes % (Auto) 2.5 Eos % (Auto) 1.4 Baso % (Auto) 0.2 Lymph # (Auto) 0.7 L Barnes # (Auto) 0.2 Eos # (Auto) 0.1 Baso # (Auto) 0.0 Abs Immat Gran (auto) 0.02 Absolute Neuts (auto) 8.5 H Absolute Nucleated RBC 0.000 Nucleated RBC % (auto) 0.0 O2 Saturation ABG pH at Pt Temp ABG pH (Temp Correct) ABG pCO2 at Pt Temp ABG pCO2 (Temp Corrct ABG pO2 at Pt Temp ABG pO2 (Temp Correct ABG HCO3 ABG Base Excess (Actual) VBG pH VBG pCO2 VBG pO2 VBG HCO3 VBG O2 Saturation VBG Base Excess Anion Gap 17 Estim Creat Clear Calc 75.1 Estimated GFR 48 Random Glucose 138 H D Lactic Acid Calcium 8.2 L D Magnesium 1.9 Total Bilirubin 0.9 AST 17 ALT 10 Alkaline Phosphatase 96 B-Natriuretic Peptide Total Protein 6.3 L D Albumin 3.3 L D Lipase 18 Urine Color Urine Appearance Urine pH Ur Specific [place] Urine Protein Urine Glucose (UA) Urine Ketones Urine Blood Urine Nitrite Ur Leukocyte Esterase Urine RBC Urine WBC Ur Squamous Epith Cells Amorphous Sediment Urine Bacteria Urine Mucus Urine Yeast Coronavirus (PCR) NEGATIVE Influenza Type A (PCR) NEGATIVE Influenza Type B (PCR) NEGATIVE RSV RNA Qual (PCR) NEGATIVE 07/30/20 07/30/20 07/30/20 02:18 02:18 02:18 MCV MCH MCHC RDW Plt Count MPV Immature Gran % (Auto) Neut % (Auto) Lymph % (Auto) Barnes % (Auto) Eos % (Auto) Baso % (Auto) Lymph # (Auto) Barnes # (Auto) Eos # (Auto) Baso # (Auto) Abs Immat Gran (auto) Absolute Neuts (auto) Absolute Nucleated RBC Nucleated RBC % (auto) O2 Saturation ABG pH at Pt Temp ABG pH (Temp Correct) ABG pCO2 at Pt Temp ABG pCO2 (Temp Corrct ABG pO2 at Pt Temp ABG pO2 (Temp Correct ABG HCO3 ABG Base Excess (Actual) VBG pH VBG pCO2 VBG pO2 VBG HCO3 VBG O2 Saturation VBG Base Excess Anion Gap Estim Creat Clear Calc Estimated GFR Random Glucose Lactic Acid 0.7 Calcium Magnesium Cancelled Total Bilirubin AST ALT Alkaline Phosphatase B-Natriuretic Peptide 60 Total Protein Albumin Lipase Cancelled Urine Color Urine Appearance Urine pH Ur Specific [place] Urine Protein Urine Glucose (UA) Urine Ketones Urine Blood Urine Nitrite Ur Leukocyte Esterase Urine RBC Urine WBC Ur Squamous Epith Cells Amorphous Sediment Urine Bacteria Urine Mucus Urine Yeast Coronavirus (PCR) Influenza Type A (PCR) Influenza Type B (PCR) RSV RNA Qual (PCR) 07/30/20 07/30/20 07/30/20 02:20 02:48 08:51 MCV MCH MCHC RDW Plt Count MPV Immature Gran % (Auto) Neut % (Auto) Lymph % (Auto) Barnes % (Auto) Eos % (Auto) Baso % (Auto) Lymph # (Auto) Barnes # (Auto) Eos # (Auto) Baso # (Auto) Abs Immat Gran (auto) Absolute Neuts (auto) Absolute Nucleated RBC Nucleated RBC % (auto) O2 Saturation 86.0 ABG pH at Pt Temp 7.31 L ABG pH (Temp Correct) 7.31 L ABG pCO2 at Pt Temp 62 H* ABG pCO2 (Temp Corrct 61 H* ABG pO2 at Pt Temp 56 L ABG pO2 (Temp Correct 55 L ABG HCO3 31 H ABG Base Excess (Actual) 3.4 VBG pH 7.29 L VBG pCO2 66 VBG pO2 44 VBG HCO3 32 H VBG O2 Saturation 69.0 VBG Base Excess 3.6 Anion Gap Estim Creat Clear Calc Estimated GFR Random Glucose Lactic Acid Calcium Magnesium Total Bilirubin AST ALT Alkaline Phosphatase B-Natriuretic Peptide Total Protein Albumin Lipase Urine Color YELLOW Urine Appearance CLEAR Urine pH 5.5 Ur Specific [place] >= 1.030 H Urine Protein 2+ H Urine Glucose (UA) NEG Urine Ketones NEG Urine Blood 1+ H Urine Nitrite NEG Ur Leukocyte Esterase NEG Urine RBC 5-9 H Urine WBC 0-2 Ur Squamous Epith Cells 1+ Amorphous Sediment TRACE Urine Bacteria NONE Urine Mucus 2+ Urine Yeast TRACE Coronavirus (PCR) Influenza Type A (PCR) Influenza Type B (PCR) RSV RNA Qual (PCR) Imaging Radiologist's Impressions: Impressions Chest X-Ray 07/30/20 01:47 IMPRESSION: No dense consolidation. Bronchial wall thickening can be seen with a small airways process such as asthma or atypical/viral infection. Assessment and Plan (1) Obesity hypoventilation syndrome: Status: Acute (2) Obstructive sleep apnea: Status: Acute (3) Acute on chronic heart failure: Status: Acute (4) Acute on chronic respiratory failure with hypoxia and hypercapnia: Status: Acute (5) Asthma with exacerbation: Status: Acute (6) Acute respiratory failure: Status: Acute 69-year-old female morbidly obese BMI 62, MISSY uses biPAP at home, HTN, , hypothyroidism, GERD, likly hypoventilation syndrome. She presented with an episode of nause and vomitting without other abdominal complaint and admitted for acute hypoxic respiratory failure likely related to hypovention, MISSY, asthma. No covid, plan: BiPAP ICU consult Neb treatment There does not appear to be underlying PNA negative covid Hypothyroidism--continue Levothyroxine HLD--Lipitor HTN--continue Losartan, HCTZ, Coreg Morbid obesity--should take weight loss meaures as obesity affecting other health issues Lovenox for DVT prophylaxis.
[2020-07-30] MEDS: iohexoL 350 MG/ML 100 ML INFUS..BTL IV (10:23)
[2020-07-30] MEDS: Nystatin Powder 15 GM BOTTLE 1 APPL TOPICAL ×2 (11:57→20:52)
[2020-07-30] MEDS: Enoxaparin Sodium 40 MG/0.4 ML SYRINGE SUBCUT (11:58)
--- NOTE | 2020-07-30 13:45 | CA_ITS ---
Transthoracic Echocardiogram Patient (Last, First, Middle): Jocelynn Fernando, Gender: Female Date of : 1950 Age: 69 Procedure Date: 07/30/2020 Procedure Type: Transthoracic Echocardiogram Location: ER Height: 162.56 cm Weight: 164.4 kg BSA: 2.52 m2 Heart Rate: bpm BP: 96 / 33 mmHg [place] Worker: JOSE E Referring MD: Kevin Okeefe MD Symptoms: heart failure Study Quality: Technically Difficult Conclusions: - Normal left ventricular size and systolic function. - There is mildly increased left ventricular wall thickness. - Diastolic function is normal for age. - Normal right ventricular cavity size and systolic function. - The left atrium is likely dilated. - There is mild dilatation of the ascending aorta. Findings Left Ventricle Normal left ventricular size and systolic function. There is mildly increased left ventricular wall thickness. The visually estimated ejection fraction is between 55-60%. Regional wall motion abnormalities can not be excluded due to suboptimal endocardial definition. Diastolic function is normal for age. Right Ventricle Normal right ventricular cavity size and systolic function. Atria The left atrium is likely dilated. Aortic Valve Normal aortic valve structure and function. There is no aortic valve stenosis. There is no aortic valve regurgitation. Mitral Valve Likely normal mitral valve structure and function. There is no mitral valve regurgitation. There is no mitral valve stenosis. Pulmonic Valve Normal pulmonic valve structure and function. There is trace pulmonic valve regurgitation. Tricuspid Valve Likely normal tricuspid valve structure and function. There is trace tricuspid valve regurgitation. Normal right atrial pressure. There is no evidence of pulmonary hypertension. Great Vessels There is mild dilatation of the ascending aorta. The visualized portions of the pulmonary artery and branches are normal. Venous The inferior vena cava is normal in size and collapses greater than 50% with inspiration. Pericardium/Pleural There is no evidence of pericardial effusion. Prior Study Comparison No prior study available for comparison. Measurements 2D Linear Measurements IVSd: 1.04 0.6-0.9/0.6-1.0 cm LVIDd: 3.79 3.9-5.3/4.2-5.9 cm LVIDd Index: 1.50 2.4-3.2/2.2-3.1 cm/m2 LVIDs: 2.89 2.0-3.6 cm LVPWd: 1.07 0.7-1.1 cm Ao Root: 3.50 2.1-3.5 cm LA Diam: 3.30 2.7-3.8/3.0-4.0 cm LAIDs Index: 1.31 1.5-2.3 cm/m2 LV Mass: 156.98 67-162/88-224 g LV Mass Index: 62.29 43-95/49-115 g/m2 LVOT Diam: 2.40 3.0+(-)1.3 cm Mitral Valve MV Pk E: 1.19 MV PK A: 0.89 MV Decel Time: 289.00 E/A: 1.30 E'Lateral: 12.50 E'Medial: 9.19 E/E' Med: 12.90 E/E' Lat: 9.50 PHT: 85.00 MVA PHT: 2.59 Decel [place]: 4.11 Aortic Valve AoV Pk Rolando: 1.35 AoV Mn Rolando: 1.02 AoV VTI: 0.32 AoV Pk Grad: 7.00 Aov Mn Grad: 5.00 STEFAN Cont.VTI: 4.14 LVOT LVOT Pk Rolando: 1.14 LVOT Mn Rolando: 0.86 LVOT VTI: 0.29 LVOT Pk Grad: 5.00 LVOT Mn Grad: 3.00 LVOT Diam: 2.40 LVOT Area: 4.52 Diastolic Function MV Pk E: 1.19 MV Pk A: 0.89 E/A: 1.30 E'Medial: 9.19 E/E' Med: 12.90 E' Laterial: 12.50 E/E' Lat: 9.50 Tricuspid Valve TR Pk Rolando: 2.31 TR Pk Grad: 21.00 RA Press: 8.00 RVSP: 29.00 Great Vessels Aorta Ao Root-2D: 3.50 2.0-3.7 cm Ao Asc: 3.40 2.1-3.4 cm Updated in Other Vendor System with Status of Final Jem Viera MD electronically signed on 07/30/2020 7:29:37 PM with status of Final
--- NOTE | 2020-07-30 14:01 | PC.NURSE ---
pt has redness to abdominal skin folds and under breasts that appears fungal. Asked MD for antifungal and applied as ordered. cleaned and repositioned pt, she has been inc of small amounts of urine.
--- NOTE | 2020-07-30 14:24 | MHC.CM.PN ---
Attempted to meet with patient in regards to discharge planning. Patient currently on Bipap. Spoke with patient's sig other, Benoit via telephone at [phone].Patient and Benoit have been together for over 30 years. They lives together. Patient ambulates with a walker and has a home health aide from [facility]. Patient recently had home physical therapy. However, Benoit does not remember the agency name. PCP is Dr Bryanna Gama. Patient does not have a HCP. IMM explained and sent via certified mail to Benoit. Anticipate physical therapy eval for home safety will be needed when medically stable. Patient has never been to short term rehab. Continue to monitor for d/c needs.
[2020-07-30] MEDS: Albumin Human 25 % 100 ML IV ×2 (14:30→20:44)
--- NOTE | 2020-07-30 14:40 | PC.NURSE ---
pt getting bedside ultrasound
[2020-07-30] MEDS: Furosemide 500 MG in Container,Empty 0 ML IVCONT ×2 (15:35→20:41)
--- NOTE | 2020-07-30 15:45 | MHC.CM.PN ---
Reached out to [facility]. Patient was active with them but was recently discharged. They are unable to accept her back because they are at capacity. Referral made to Tila MONTAÑO to follow for discharge needs. Continue to monitor for d/c needs.
--- NOTE | 2020-07-30 15:55 | PC.NURSE ---
pt has been moved to air loss bed and bed inflated, turned right. Pt tolerated move well. She has second peripheral IV by ultrasound guidance to left arm.
--- NOTE | 2020-07-30 15:56 | W.PM.CCCN ---
History of Present Illness Data of Consult Service Date: 07/30/20 Requesting physician: Kevin Guerra Primary Care Provider: Unknown Physician 69-year-old lady, nonsmoker, with underlying history of obesity, tension, hypothyroidism, GERD admitted on 07/30/2020 with nausea, vomiting, and acute on chronic hypoxic and hypercapnic respiratory failure requiring BiPAP support. Patient is significantly lethargic and a poor historian, majority of history obtained from chart review. Review of Systems Review of Systems: Yes Unobtainable due to mental condition and Unobtainable due to mental status PMFSH Past Medical History Medical History Asthma Diarrhea GERD (gastroesophageal reflux disease) Hypercholesteremia Hypertension Neuropathy Seasonal allergies Thyroid activity decreased Surgical History Surgical History H/O: hysterectomy History of cholecystectomy Social History Social History Alcohol intake: unknown Smoking Status: Unknown if ever smoked Use of substances other than those prescribed or required for medical reasons: Unknown Advance Directives: No service: No Current occupational status: retired Meds Allergies Allergy/AdvReac Type Severity Reaction Status Date / Time celecoxib [From CELEBREX] Allergy Unknown RASH Verified 07/30/20 06:01 Latex, Natural Rubber Allergy Rash Verified 07/30/20 06:01 ibuprofen [IBUPROFEN] AdvReac Intermediate RASH Verified 07/30/20 06:01 Active Medications: Current Medications Generic Name Dose Route Start Last Admin Trade Name Freq PRN Reason Stop Dose Admin Enoxaparin Sodium 40 mg 07/30/20 11:00 07/30/20 11:58 Enoxaparin Sodium 40 Mg/0.4 Ml Syringe SUBCUT 40 mg Q24H JOSÉ ANTONIO Administration Albumin Human 100 mls @ 100 mls/hr 07/30/20 14:00 07/30/20 14:30 Kedbumin 25 % IV 07/31/20 08:59 100 mls/hr Q6H JOSÉ ANTONIO Administration Furosemide 500 mg/ IV 50 mls @ 0.5 mls/hr 07/30/20 14:00 07/30/20 15:35 Miscellaneous Supplies IVCONT 5 mg/hr .Q24H JOSÉ ANTONIO 0.5 mls/hr Administration 5 MG/HR Nystatin 1 appl 07/30/20 11:00 07/30/20 11:57 Nystatin Powder 15 Gm Bottle TOPICAL 1 appl BID [facility] Administration Protocol Pharmacy Consult 1 each 07/30/20 07:02 Consult Rx Perform Med Rec MISCELLANE ONCE PRN Consult order Sodium Chloride 3 ml 07/30/20 16:00 0.9 % Sodium Chloride Flush 3 Ml Syringe IVFLUSH QSHIFT [facility] Home Medications Medication Instructions Recorded Confirmed Last Taken Type dexlansoprazole [Dexilant] 60 mg PO DAILY 01/30/20 07/30/20 Unknown History diphenoxylate-atropine 1 tab PO TID PRN 01/30/20 07/30/20 01/29/20 11:45 History hydrochlorothiazide 1 tab PO DAILY 01/30/20 07/30/20 Unknown History levothyroxine 1 tab PO DAILY 01/30/20 07/30/20 Unknown History pregabalin 1 cap PO BID 01/30/20 07/30/20 Unknown History simvastatin 5 mg PO BEDTIME 01/30/20 07/30/20 Unknown History atorvastatin 1 tab PO DAILY 07/30/20 07/30/20 Unknown History carvedilol 1 tab PO BID 07/30/20 07/30/20 Unknown History ketoconazole 1 appl TOPICAL BID 07/30/20 07/30/20 Unknown History losartan 1 tab PO DAILY 07/30/20 07/30/20 Unknown History triamcinolone acetonide [Nasal 2 spray INTRANASAL DAILY 07/30/20 07/30/20 Unknown History Allergy] Physical Exam Vital Signs: Vital Signs: Last Vital Signs Temp 98.0 F 07/30/20 10:33 Pulse 71 07/30/20 12:55 Resp 21 H 07/30/20 15:23 BP 118/53 L 07/30/20 12:55 Pulse Ox 94 07/30/20 12:55 Body Mass Index 62.1 Const: General: no acute distress and lethargic (Arousable) Nutritional Appearance: obese Orientation/consciousness: lethargic (Arousable) Eyes: Sclerae: sclerae normal EOM: EOMs intact bilaterally Neck: Neck: Yes no lymphadenopathy, Yes trachea midline and Yes supple Resp: Effort & Inspection: normal respiratory effort and no respiratory distress Auscultation: crackles (Bibasilar) Cardio: Rate: regular rate Rhythm: regular rhythm Heart sounds: no gallops, no murmurs and no rubs GI: Palpation (GI): Soft to palpation and Other GI palpation findings present ( Nontender) Auscultation: normal bowel sounds Extrem: General: No clubbing, No cyanosis and Yes pedal edema (1+ bilateral) Results Labs CBC & Chem 7: 07/30/20 02:18 07/30/20 02:18 Labs: Short CBC 07/30/20 Range/Units 02:18 WBC 9.7 (4.8-10.8) X10*3/uL Hgb 12.8 (12.0-16.0) g/dl Hct 40.1 (37-47) % Plt Count 264 (160-400) X10*3/uL BMP 07/30/20 02:18 Sodium 139 Potassium 4.6 Chloride 100 Carbon Dioxide 27 BUN 27 H Creatinine 1.13 Calcium 8.2 L D Liver Function 07/30/20 Range/Units 02:18 Total Bilirubin 0.9 (0.0-1.0) mg/dL AST 17 (5-31) U/L ALT 10 (0-31) U/L Alkaline Phosphatase 96 (39-117) U/L Albumin 3.3 L D (3.5-5.0) g/dL Urine 07/30/20 Range/Units 02:48 Urine Color YELLOW Urine Appearance CLEAR Urine pH 5.5 (5.0-8.0) Ur Specific [place] >= 1.030 H (1.005-1.025) Urine Protein 2+ H (NEG-TRACE) MG/DL Urine Glucose (UA) NEG (NEG) MG/DL Assessment and Plan (1) Acute on chronic respiratory failure with hypoxia and hypercapnia: Status: Acute Impression: Patient appears to have acute on chronic hypoxic and hypercapnic respiratory failure on the background of underlying obesity and likely obesity hypoventilation syndrome with possible right heart and diastolic dysfunction now requiring BiPAP support. Recommendation: Will transferred to intensive care unit for acute on chronic hypoxic and hypercapnic respiratory failure requiring BiPAP support. Will continue to titrate off BiPAP support as tolerated. Will start on gentle diuresis. Will obtain 2D echocardiogram. Critical care time: 45 minutes (2) Acute on chronic heart failure: Status: Acute (3) Obstructive sleep apnea: Status: Acute (4) Obesity hypoventilation syndrome: Status: Acute
--- NOTE | 2020-07-30 17:30 | PC.NURSE ---
repositioned pt to right side with inflation bed. pt has been sleeping.
--- NOTE | 2020-07-30 19:45 | PC.NURSE ---
attempted to call ED for report.
--- NOTE | 2020-07-30 19:49 | PC.NURSE ---
nurse to nurse report given to Silke SAMUEL in ICU
[2020-07-30] MEDS: Acetaminophen 325 MG TABLET 650 MG PO (22:49)
[2020-07-31] VITALS (19 sets, daily range): BP systolic 106–170; BP diastolic 37–82; PULSE 68–87; RESP 8–20; TEMP 36.2–36.9; O2SAT 91–97
[2020-07-31] MEDS: 0.9 % Sodium Chloride Flush 3 ML SYRINGE IVFLUSH ×3 (01:07→17:00)
[2020-07-31] MEDS: Albumin Human 25 % 100 ML IV ×2 (02:27→08:31)
[2020-07-31 05:46] LABS: VBG Base Excess 7.7 mmol/L; VBG HCO3 32 mmol/L (22-26); VBG pCO2 44 mmHg; VBG pH 7.47 (7.32-7.43); VBG pO2 70 mmHg
[2020-07-31 05:50] LABS: MANUAL DIFF FLAG NO
[2020-07-31 05:51] LABS: Basophils Percent Auto 0.1 % (0-2); Hematocrit 31.4 % (37-47); Hemoglobin 10.3 g/dl (12.0-16.0); Imm Gran Abs Auto 0.05 X10*3/uL (0.00-0.03); Imm Gran Pct Auto 0.3 % (0.0-0.4); Lymphocytes Absolute Auto 1.1 X10*3/uL (1.2-4.9); Lymphocytes Percent Auto 6.4 % (20-40); Mean Corpuscular HGB Conc 32.8 g/dl (31.0-35.0); Mean Corpuscular Hemoglobin 29.2 pg (27.0-33.0); Mean Platelet Volume 11.1 fL (9.4-12.3); Monocytes Absolute Auto 0.7 X10*3/uL (0.1-1.2); Neutrophils Absolute Auto 14.6 X10*3/uL (2.0-8.3); Neutrophils Percent Auto 89.2 % (45-73); Platelet Count 198 X10*3/uL (160-400); Red Blood Count 3.53 X10*6/uL (4.20-5.50); Red Cell Distribution Width 13.8 % (11.0-16.0); White Blood Count 16.3 X10*3/uL (4.8-10.8)
[2020-07-31 06:26] LABS: Albumin Level 3.6 g/dL (3.5-5.0); Anion Gap 16 (12-20); Blood Urea Nitrogen 32 mg/dL (9-16); Carbon Dioxide 27 mmol/L (22-29); Chloride 101 mmol/L (96-108); Creatinine Clr Calc Pharmacy 87.5; Estimated Glomerular Filt Rate 57; Glucose Random 119 mg/dL (60-115); Magnesium 2.1 mg/dL (1.6-2.6); Phosphorus 3.8 mg/dL (2.7-4.5); Potassium 3.9 mmol/L (3.3-5.1); Sodium 140 mmol/L (135-145)
--- NOTE | 2020-07-31 06:36 | PC.NURSE ---
Pt admitted to ICU at 2014. Alert and oriented, vague on situation. VSS, lungs clear, Bipap changed to 12/5, fio2 30%. Pt tolerating well. Maciel inserted with Research Assistant Professor assistance. Pt has fungal rash to abd fold and groin, Nystatin powder applied.
[2020-07-31 08:19] LABS: Venous Blood Gas Refer to POC result
[2020-07-31] MEDS: Nystatin Powder 15 GM BOTTLE 1 APPL TOPICAL ×2 (08:32→21:14)
[2020-07-31] MEDS: Acetaminophen 325 MG TABLET 650 MG PO ×2 (09:23→17:04)
[2020-07-31] MEDS: Enoxaparin Sodium 40 MG/0.4 ML SYRINGE SUBCUT (10:54)
--- NOTE | 2020-07-31 11:01 | P.PNCC_ITS ---
Subjective Subjective Date of Service: 07/31/20 Interval History: 69-year-old lady, nonsmoker, with underlying history of obesity, tension, hypothyroidism, GERD, usually a patient of Dr. Ureña admitted on 07/30/2020 with nausea, vomiting, and acute on chronic hypoxic and hypercapnic respiratory failure requiring BiPAP support. Patient started on IV diuresis with improvement in lower extremity edema and oxygenation. She has been titrated off BiPAP overnight and now 2 L via nasal cannula. She has had 2D echocardiogram that showed dilated left at room which is indicative of underly ing diastolic dysfunction. Physical Exam Vital Signs: Vital Signs: Last Vital Signs Temp 97.9 F 07/31/20 08:00 Pulse 77 07/31/20 10:00 Resp 16 07/31/20 10:00 BP 124/53 L 07/31/20 10:00 Pulse Ox 94 07/31/20 10:00 Oxygen Flow Rate 15 07/30/20 01:35 Body Mass Index 62.1 Const: General: no acute distress, alert and awake Nutritional Appearance: obese Eyes: Sclerae: sclerae normal EOM: EOMs intact bilaterally Neck: Neck: Yes no lymphadenopathy, Yes trachea midline and Yes supple Resp: Effort & Inspection: normal respiratory effort and no respiratory distress Auscultation: clear to auscultation bilaterally Cardio: Rate: regular rate Rhythm: regular rhythm Heart sounds: no gallops, no murmurs and no rubs GI: Palpation (GI): Soft to palpation and Other GI palpation findings present ( Nontender) Auscultation: normal bowel sounds Extrem: General: No clubbing, No cyanosis and Yes pedal edema (1+ bilateral) Objective Data Labs CBC & Chem 7: 07/31/20 05:39 07/31/20 05:39 Labs: Laboratory Results - last 24 hr 07/31/20 07/31/20 07/31/20 05:39 05:39 05:40 WBC 16.3 H RBC 3.53 L D Hgb 10.3 L Hct 31.4 L D MCV 89.0 MCH 29.2 MCHC 32.8 RDW 13.8 Plt Count 198 MPV 11.1 Immature Gran % (Auto) 0.3 Neut % (Auto) 89.2 H Lymph % (Auto) 6.4 L [place] % (Auto) 4.0 Eos % (Auto) 0.0 Baso % (Auto) 0.1 Lymph # (Auto) 1.1 L [place] # (Auto) 0.7 Eos # (Auto) 0.0 Baso # (Auto) 0.0 Abs Immat Gran (auto) 0.05 H Absolute Neuts (auto) 14.6 H Absolute Nucleated RBC 0.000 Nucleated RBC % (auto) 0.0 VBG pH 7.47 H VBG pCO2 44 VBG pO2 70 VBG HCO3 32 H VBG O2 Saturation 96.0 VBG Base Excess 7.7 Sodium 140 Potassium 3.9 Chloride 101 Carbon Dioxide 27 Anion Gap 16 BUN 32 H Creatinine 0.97 Estim Creat Clear Calc 87.5 Estimated GFR 57 Random Glucose 119 H Calcium 8.0 L Phosphorus 3.8 Magnesium 2.1 Albumin 3.6 Microbiology Microbiology Results: Microbiology 07/30/20 05:13 Blood - Venous Blood Culture - Preliminary No growth after 24 hours. 07/30/20 03:19 Blood - Venous Blood Culture - Preliminary No growth after 24 hours. Progress Note: A&P Assessment and plan (1) Obesity hypoventilation syndrome: Status: Acute Assessment and Plan: Assessment: 69-year-old lady with underlying obesity, MISSY on CPAP, obesity hyperventilation syndrome, likely diastolic dysfunction admitted with acute on chronic hypoxic and hypercapnic respiratory failure requiring initially BiPAP support, now improved with diuresis. Plan: Neuro: No acute issues. Cardiac: 2D echocardiogram results reviewed. Even though no formal diastolic dysfunction is noted, patient does have dilated left atrium. Would continue on IV diuresis at this time. Pulmonary: Acute on chronic hypoxic and hypercapnic respiratory failure i nitially requiring BiPAP support, now titrated down to nasal cannula. Patient does have underlying MISSY requiring CPAP support at night and as needed for naps. Renal: Creatinine clearance improving with diuresis. Endo: No acute issues. GI: No acute issues. ID: No acute issues Heme/Onc: No acute issues. Psych: No acute issues. Miscellaneous: No acute issues. Prophylaxis: Lovenox Diet: Regular Critical care time spent: 45 minutes (2) Obstructive sleep apnea: Status: Acute (3) Acute on chronic respiratory failure with hypoxia and hypercapnia: Status: Acute (4) Acute on chronic heart failure: Status: Acute Critical Care Time 45 minutes
[2020-07-31] MEDS: Pregabalin 150 MG CAPSULE PO (21:12)
[2020-07-31] MEDS: carvediloL 6.25 MG TABLET PO (21:13)
[2020-08-01] VITALS (10 sets, daily range): BP systolic 110–149; BP diastolic 60–67; PULSE 68–82; RESP 18–26; TEMP 36.1–37.7; O2SAT 86–97
[2020-08-01] MEDS: 0.9 % Sodium Chloride Flush 3 ML SYRINGE IVFLUSH ×3 (00:01→15:41)
[2020-08-01] MEDS: Acetaminophen 325 MG TABLET 650 MG PO ×2 (04:58→20:06)
[2020-08-01] MEDS: Levothyroxine Sodium 50 MCG TABLET PO (05:00)
[2020-08-01] MEDS: Omeprazole 40 MG CAPSULE.DR PO (05:00)
[2020-08-01 06:39] LABS: MANUAL DIFF FLAG NO
[2020-08-01 06:52] LABS: Basophils Absolute Auto 0.1 X10*3/uL (0.0-0.2); Basophils Percent Auto 0.3 % (0-2); Eosinophils Absolute Auto 0.1 X10*3/uL (0.0-0.4); Eosinophils Percent Auto 0.4 % (0-4); Hematocrit 34.7 % (37-47); Hemoglobin 11.2 g/dl (12.0-16.0); Imm Gran Abs Auto 0.19 X10*3/uL (0.00-0.03); Imm Gran Pct Auto 1.1 % (0.0-0.4); Lymphocytes Absolute Auto 1.8 X10*3/uL (1.2-4.9); Mean Corpuscular HGB Conc 32.3 g/dl (31.0-35.0); Mean Corpuscular Hemoglobin 28.9 pg (27.0-33.0); Mean Corpuscular Volume 89.7 fL (80-98); Monocytes Absolute Auto 0.9 X10*3/uL (0.1-1.2); Monocytes Percent Auto 5.1 % (2-11); Neutrophils Absolute Auto 14.6 X10*3/uL (2.0-8.3); Neutrophils Percent Auto 83.1 % (45-73); Platelet Count 234 X10*3/uL (160-400); Red Blood Count 3.87 X10*6/uL (4.20-5.50); Red Cell Distribution Width 14.2 % (11.0-16.0); White Blood Count 17.5 X10*3/uL (4.8-10.8)
[2020-08-01 07:18] LABS: Anion Gap 16 (12-20); Blood Urea Nitrogen 41 mg/dL (9-16); Calcium 8.5 mg/dL (8.4-10.2); Carbon Dioxide 30 mmol/L (22-29); Chloride 99 mmol/L (96-108); Creatinine Clr Calc Pharmacy 77.1; Estimated Glomerular Filt Rate 50; Glucose Random 127 mg/dL (60-115); Potassium 3.4 mmol/L (3.3-5.1); Sodium 142 mmol/L (135-145)
[2020-08-01] MEDS: Losartan Potassium 25 MG TABLET PO (10:55)
[2020-08-01] MEDS: Atorvastatin Calcium 10 MG TABLET PO (10:55)
[2020-08-01] MEDS: carvediloL 6.25 MG TABLET PO ×2 (10:55→20:07)
[2020-08-01] MEDS: Nystatin Powder 15 GM BOTTLE 1 APPL TOPICAL ×2 (10:56→20:16)
[2020-08-01] MEDS: Pregabalin 150 MG CAPSULE PO ×2 (10:56→20:07)
[2020-08-01] MEDS: Enoxaparin Sodium 40 MG/0.4 ML SYRINGE SUBCUT (11:39)
[2020-08-01] MEDS: Clotrimazole 1 % Cream 15 GM TUBE 1 APPL TOPICAL ×2 (11:39→20:17)
[2020-08-01] MEDS: Fluticasone Propionate Nasal 16 GM SPRAY 2 SPRAY NOSTRIL-B (11:39)
--- NOTE | 2020-08-01 13:45 | HO.PM.IMPN ---
Subjective Subjective Date of Service: 08/01/20 Interval History: Seen in f/u acute resp failure d/t hypoventilation syndrome, obesity type.She says she feels much better today, she tolerated by at night Review of Systems Gen: no fever Resp: no sob, no cough CV: no chest, no ROCHA, no leg edema GI: No n/v, no abd pain Neuro: No confusion Physical Exam Vital Signs: Vital Signs: Last Vital Signs Temp 98.9 F 08/01/20 11:54 Pulse 82 08/01/20 11:54 Resp 20 08/01/20 11:54 BP 130/62 08/01/20 11:54 Pulse Ox 86 L 08/01/20 11:54 Oxygen Flow Rate 15 07/30/20 01:35 Body Mass Index 62.1 Const: Other: Constitutional somnolent but arousable and falls back to sleep, morbidly obese Neck Supple, No lymphadenopathy Cardiovascular RRR, No M/R/G, S1 S2, No S3 S4, No pedal edema Respiratory Lungs clear, No respiratory distress Gastrointestinal Non tender, Non-distended Skin No rash Neurological Alert & oriented x3 Psychological Appropriate affect Objective Data Current Medications Generic Name Dose Route Start Last Admin Trade Name Freq PRN Reason Stop Dose Admin Acetaminophen 650 mg 07/30/20 22:40 08/01/20 04:58 Acetaminophen 325 Mg Tablet PO 650 mg Q6H PRN Administration Pain, Mild (Pain Scale 1-3) Atorvastatin Calcium 10 mg 08/01/20 09:00 08/01/20 10:55 Atorvastatin Calcium 10 Mg Tablet PO 10 mg DAILY JOSÉ ANTONIO Administration Carvedilol 6.25 mg 07/31/20 21:00 08/01/20 10:55 Carvedilol 6.25 Mg Tablet PO 6.25 mg BID JOSÉ ANTONIO Administration Protocol Clotrimazole 1 appl 07/31/20 21:00 08/01/20 11:39 Clotrimazole 1 % Cream 15 Gm Tube TOPICAL 1 appl BID JOSÉ ANTONIO Administration Diphenoxylate HCl/Atropine 1 tab 07/31/20 17:52 Diphenoxylate/Atrop 2.5/0.025 Tablet PO TID PRN Diarrhea Enoxaparin Sodium 40 mg 07/30/20 11:00 08/01/20 11:39 Enoxaparin Sodium 40 Mg/0.4 Ml Syringe SUBCUT 40 mg Q24H JOSÉ ANTONIO Administration Fluticasone Propionate 2 spray 08/01/20 09:00 08/01/20 11:39 Fluticasone Propionate Nasal 16 Gm [place] NOSTRIL-B 2 spray DAILY JOSÉ ANTONIO Administration Levothyroxine Sodium 50 mcg 08/01/20 06:30 08/01/20 05:00 Levothyroxine Sodium 50 Mcg Tablet PO 50 mcg DAILY@0630 JOSÉ ANTONIO Administration Losartan Potassium 25 mg 08/01/20 09:00 08/01/20 10:55 Losartan Potassium 25 Mg Tablet PO 25 mg DAILY JOSÉ ANTONIO Administration Protocol Nystatin 1 appl 07/30/20 11:00 08/01/20 10:56 Nystatin Powder 15 Gm Bottle TOPICAL 1 appl BID [facility] Administration Protocol Omeprazole 40 mg 08/01/20 06:30 08/01/20 05:00 Omeprazole 40 Mg Capsule. PO 40 mg DAILY@0630 [facility] Administration Pharmacy Consult 1 each 07/30/20 07:02 Consult Rx Perform Med Rec MISCELLANE ONCE PRN Consult order Pregabalin 150 mg 07/31/20 21:00 08/01/20 10:56 Pregabalin 150 Mg Capsule PO 150 mg BID JOSÉ ANTONIO Administration Sodium Chloride 3 ml 07/30/20 16:00 08/01/20 10:56 0.9 % Sodium Chloride Flush 3 Ml Syringe IVFLUSH 3 ml QSHIFT JOSÉ ANTONIO Administration Labs CBC & Chem 7: 08/01/20 05:48 08/01/20 05:48 Microbiology Microbiology Results: Microbiology 07/30/20 05:13 Blood - Venous Blood Culture - Preliminary No growth after 48 hours. 07/30/20 03:19 Blood - Venous Blood Culture - Preliminary No growth after 48 hours. Assessment and Plan (1) Obesity hypoventilation syndrome: Status: Acute (2) Obstructive sleep apnea: Status: Acute (3) Acute on chronic heart failure: Status: Acute (4) Acute on chronic respiratory failure with hypoxia and hypercapnia: Status: Acute (5) Asthma with exacerbation: Status: Acute (6) Acute respiratory failure: Status: Acute Assessment and Plan: 69-year-old female morbidly obese BMI 62, MISSY uses biPAP at home, HTN, , hypothyroidism, GERD, likly hypoventilation syndrome. She presented with an episode of nause and vomitting without other abdominal complaint and admitted for acute hypoxic respiratory failure likely related to hypovention, MISSY, asthma. No covid, 1. Acute hypoxic respiratory failure due to hypoventilation syndrome with some CO2 retention -She has been doing much better since been on bipap -bipap prn -breathing treament as needed Hypothyroidism--continue Levothyroxine HLD--Lipitor HTN--continue Losartan, HCTZ, Coreg Morbid obesity--should take weight loss meaures as obesity affecting other health issues Lovenox for DVT prophylaxis.
--- NOTE | 2020-08-01 17:49 | PC.NURSE ---
ambulated to the bathroom on room air, oxygen saturartion 80% .Patient back to bed , venti mask 8 liters/40% applied ,oxygen saturation 93 at rest now on vent mask. Pt reported mild sob on ambulation.
[2020-08-02] VITALS (8 sets, daily range): BP systolic 120–155; BP diastolic 56–65; PULSE 72–77; RESP 16–24; TEMP 36.3–37.3; O2SAT 90–96
[2020-08-02] MEDS: Levothyroxine Sodium 50 MCG TABLET PO (05:22)
[2020-08-02] MEDS: Omeprazole 40 MG CAPSULE.DR PO (05:22)
[2020-08-02] MEDS: 0.9 % Sodium Chloride Flush 3 ML SYRINGE IVFLUSH ×4 (05:22→20:25)
[2020-08-02] MEDS: carvediloL 6.25 MG TABLET PO ×2 (08:26→20:25)
[2020-08-02] MEDS: Atorvastatin Calcium 10 MG TABLET PO (08:26)
[2020-08-02] MEDS: Pregabalin 150 MG CAPSULE PO ×2 (08:26→20:24)
[2020-08-02] MEDS: Losartan Potassium 25 MG TABLET PO (08:27)
[2020-08-02] MEDS: Fluticasone Propionate Nasal 16 GM SPRAY 2 SPRAY NOSTRIL-B (08:28)
[2020-08-02] MEDS: Piperacillin Sodium/Tazobactam 3.375 GM in 0.9 % Sodium Chloride 50 ML IV ×3 (08:28→19:37)
[2020-08-02] MEDS: Nystatin Powder 15 GM BOTTLE 1 APPL TOPICAL ×2 (08:28→20:27)
[2020-08-02] MEDS: Clotrimazole 1 % Cream 15 GM TUBE 1 APPL TOPICAL ×2 (09:56→20:28)
--- NOTE | 2020-08-02 10:07 | HO.PM.IMPN ---
Subjective Subjective Date of Service: 08/02/20 Interval History: Patient feeling better no further nausea vomiting complaining of cough with yellow phlegm, on 40% oxygen finger oximetry 92-94, no other acute issues overnight. ROS General no headache, no dizziness no fever chills. CVS no chest pain, no palpitation. Respiratory productive cough Gastrointestinal no nausea, no vomiting, no abdominal pain Physical Exam Vital Signs: Vital Signs: Last Vital Signs Temp 99.0 F 08/02/20 07:49 Pulse 74 08/02/20 03:53 Resp 18 08/02/20 07:49 BP 142/64 H 08/02/20 07:49 Pulse Ox 94 08/02/20 07:49 Oxygen Flow Rate 15 07/30/20 01:35 Body Mass Index 62.1 General sitting on bed, no acute distress. Neck no JVD. CVS regular rate rhythm, Respiratory lungs diminished breath sound bilaterally, no respiratory distress, no wheeze, no rhonchi. Gastrointestinal abdomen obese, soft, nontender, bowel sounds audible, no guarding , no rigidity. Neuro nonfocal ,speech clear. Skin no rash Objective Data Current Medications Generic Name Dose Route Start Last Admin Trade Name Freq PRN Reason Stop Dose Admin Acetaminophen 650 mg 07/30/20 22:40 08/01/20 20:06 Acetaminophen 325 Mg Tablet PO 650 mg Q6H PRN Administration Pain, Mild (Pain Scale 1-3) Atorvastatin Calcium 10 mg 08/01/20 09:00 08/02/20 08:26 Atorvastatin Calcium 10 Mg Tablet PO 10 mg DAILY JOSÉ ANTONIO Administration Carvedilol 6.25 mg 07/31/20 21:00 08/02/20 08:26 Carvedilol 6.25 Mg Tablet PO 6.25 mg BID JOSÉ ANTONIO Administration Protocol Clotrimazole 1 appl 07/31/20 21:00 08/02/20 09:56 Clotrimazole 1 % Cream 15 Gm Tube TOPICAL 1 appl BID JOSÉ ANTONIO Administration Diphenoxylate HCl/Atropine 1 tab 07/31/20 17:52 Diphenoxylate/Atrop 2.5/0.025 Tablet PO TID PRN Diarrhea Enoxaparin Sodium 40 mg 07/30/20 11:00 08/01/20 11:39 Enoxaparin Sodium 40 Mg/0.4 Ml Syringe SUBCUT 40 mg Q24H JOSÉ ANTONIO Administration Fluticasone Propionate 2 spray 08/01/20 09:00 08/02/20 08:28 Fluticasone Propionate Nasal 16 Gm [place] NOSTRIL-B 2 spray DAILY [facility] Administration Piperacillin Sod/Tazobactam 50 mls @ 100 mls/hr 08/02/20 08:00 08/02/20 09:27 Sod 3.375 gm/ Sodium Chloride IV Infused Q6H [facility] Infusion Levothyroxine Sodium 50 mcg 08/01/20 06:30 08/02/20 05:22 Levothyroxine Sodium 50 Mcg Tablet PO 50 mcg DAILY@0630 JOSÉ ANTONIO Administration Losartan Potassium 25 mg 08/01/20 09:00 08/02/20 08:27 Losartan Potassium 25 Mg Tablet PO 25 mg DAILY [facility] Administration Protocol Nystatin 1 appl 07/30/20 11:00 08/02/20 08:28 Nystatin Powder 15 Gm Bottle TOPICAL 1 appl BID [facility] Administration Protocol Omeprazole 40 mg 08/01/20 06:30 08/02/20 05:22 Omeprazole 40 Mg Capsule. PO 40 mg DAILY@0630 [facility] Administration Pharmacy Consult 1 each 07/30/20 07:02 Consult Rx Perform Med Rec MISCELLANE ONCE PRN Consult order Pregabalin 150 mg 07/31/20 21:00 08/02/20 08:26 Pregabalin 150 Mg Capsule PO 150 mg BID [facility] Administration Sodium Chloride 3 ml 07/30/20 16:00 08/02/20 08:28 0.9 % Sodium Chloride Flush 3 Ml Syringe IVFLUSH 3 ml QSHIFT [facility] Administration Labs CBC & Chem 7: 08/01/20 05:48 08/01/20 05:48 Microbiology Microbiology Results: Microbiology 07/30/20 05:13 Blood - Venous Blood Culture - Preliminary No growth after 48 hours. 07/30/20 03:19 Blood - Venous Blood Culture - Preliminary No growth after 48 hours. Assessment and Plan (1) Multifocal pneumonia: Status: Acute (2) Obesity hypoventilation syndrome: Status: Acute (3) Obstructive sleep apnea: Status: Acute (4) Acute on chronic respiratory failure with hypoxia and hypercapnia: Status: Acute (5) Morbid obesity: Status: Acute Assessment and Plan: 69-year-old female morbidly obese BMI 62, MISSY uses biPAP at home, HTN, , hypothyroidism, GERD, likly hypoventilation syndrome. She presented with an episode of nause and vomitting without other abdominal complaint and admitted for acute hypoxic respiratory failure likely related to hypovention, MISSY, asthma. No covid, Acute hypoxic respiratory failure due to hypoventilation syndrome with some CO2 retention and multifocal pneumonia Continue oxygen support and gradually wean, continue BiPAP Will treat pneumonia with IV Zosyn blood cultures x2 negative, add cough medication, patient use Advair at home will replace with Breo, add incentive spirometry encourage out of bed to chair. Hypothyroidism--continue Levothyroxine HLD--Lipitor HTN--continue Losartan, Coreg and resume hydrochlorothiazide Morbid obesity-recommend to lose weight, as obesity affecting other health issues as above. Lovenox for DVT prophylaxis.
[2020-08-02] MEDS: hydroCHLOROthiazide 25 MG TABLET PO (10:34)
[2020-08-02] MEDS: guaiFENesin DM 200/20/10 ML 10 ML SYRUP PO ×3 (10:34→22:46)
[2020-08-02] MEDS: Enoxaparin Sodium 40 MG/0.4 ML SYRINGE SUBCUT (10:34)
[2020-08-02] MEDS: Fluticasone/Vilanterol 100/25 BLST.W.DEV 1 PUFF INHALE (11:56)
--- NOTE | 2020-08-02 12:24 | MHC.CM.PN ---
per multidis rounds pt on iv zosyn and a venting mask dc expected in 1 to 2 days
[2020-08-03] VITALS (8 sets, daily range): BP systolic 118–142; BP diastolic 56–68; PULSE 64–90; RESP 18–20; TEMP 36.1–37.1; O2SAT 90–94
[2020-08-03] MEDS: Piperacillin Sodium/Tazobactam 3.375 GM in 0.9 % Sodium Chloride 50 ML IV ×4 (02:31→21:19)
[2020-08-03] MEDS: guaiFENesin DM 200/20/10 ML 10 ML SYRUP PO ×4 (05:32→21:20)
[2020-08-03] MEDS: Levothyroxine Sodium 50 MCG TABLET PO (05:32)
[2020-08-03] MEDS: Omeprazole 40 MG CAPSULE.DR PO (05:32)
[2020-08-03 05:54] LABS: MANUAL DIFF FLAG NO
[2020-08-03 05:57] LABS: Basophils Percent Auto 0.3 % (0-2); Eosinophils Absolute Auto 0.6 X10*3/uL (0.0-0.4); Eosinophils Percent Auto 4.5 % (0-4); Hematocrit 32.4 % (37-47); Hemoglobin 10.7 g/dl (12.0-16.0); Imm Gran Abs Auto 0.08 X10*3/uL (0.00-0.03); Imm Gran Pct Auto 0.6 % (0.0-0.4); Lymphocytes Absolute Auto 1.9 X10*3/uL (1.2-4.9); Lymphocytes Percent Auto 15.2 % (20-40); Mean Corpuscular Hemoglobin 29.4 pg (27.0-33.0); Mean Platelet Volume 10.9 fL (9.4-12.3); Monocytes Percent Auto 8.4 % (2-11); Neutrophils Absolute Auto 8.7 X10*3/uL (2.0-8.3); Platelet Count 249 X10*3/uL (160-400); Red Blood Count 3.64 X10*6/uL (4.20-5.50); Red Cell Distribution Width 13.9 % (11.0-16.0); White Blood Count 12.3 X10*3/uL (4.8-10.8)
[2020-08-03] MEDS: Fluticasone/Vilanterol 100/25 BLST.W.DEV 1 PUFF INHALE (07:35)
[2020-08-03] MEDS: carvediloL 6.25 MG TABLET PO ×2 (08:31→21:20)
[2020-08-03] MEDS: Losartan Potassium 25 MG TABLET PO (08:31)
[2020-08-03] MEDS: Atorvastatin Calcium 10 MG TABLET PO (08:31)
[2020-08-03] MEDS: hydroCHLOROthiazide 25 MG TABLET PO (08:31)
[2020-08-03] MEDS: Pregabalin 150 MG CAPSULE PO ×2 (08:31→21:20)
[2020-08-03] MEDS: Fluticasone Propionate Nasal 16 GM SPRAY 2 SPRAY NOSTRIL-B (08:32)
[2020-08-03] MEDS: Nystatin Powder 15 GM BOTTLE 1 APPL TOPICAL ×2 (08:32→21:27)
[2020-08-03] MEDS: 0.9 % Sodium Chloride Flush 3 ML SYRINGE IVFLUSH ×3 (08:32→21:21)
[2020-08-03] MEDS: Clotrimazole 1 % Cream 15 GM TUBE 1 APPL TOPICAL ×2 (08:33→21:27)
[2020-08-03] MEDS: Enoxaparin Sodium 40 MG/0.4 ML SYRINGE SUBCUT (10:29)
--- NOTE | 2020-08-03 15:21 | MHC.CM.PN ---
DP Female 69 DX Respiratory failure. Per MD rounds the Pt needs C-PAP for DC. She has one that no longer works, at home. Respiratory was contacted. Per Resp Dept. They will be able to locate and obtain a cpap prior to her discharge
--- NOTE | 2020-08-03 15:33 | P.PNIM_ITS ---
Subjective Subjective Date of Service: 08/03/20 Interval History: cough and dyspnea improving no fever states home BiPAP not working Physical Exam Vital Signs: Vital Signs: Last Vital Signs Temp 97.0 F 08/03/20 07:45 Pulse 71 08/03/20 11:31 Resp 20 08/03/20 11:31 BP 118/56 L 08/03/20 11:31 Pulse Ox 92 08/03/20 11:31 Oxygen Flow Rate 15 07/30/20 01:35 Body Mass Index 62.1 Gen: in no acute distress HEENT: sclera anicteric, moist mucus membranes Neck: supple Lungs: diminished bilaterally Heart: regular rate and rhythm, no murmurs Abd: soft, non-tender, non-distended, morbidly obese Ext: no edema Skin: warm/well-perfused Neuro: alert and oriented x3, no focal findings Psych: appropriate affect Objective Data Current Medications Generic Name Dose Route Start Last Admin Trade Name Freq PRN Reason Stop Dose Admin Acetaminophen 650 mg 07/30/20 22:40 08/01/20 20:06 Acetaminophen 325 Mg Tablet PO 650 mg Q6H PRN Administration Pain, Mild (Pain Scale 1-3) Atorvastatin Calcium 10 mg 08/01/20 09:00 08/03/20 08:31 Atorvastatin Calcium 10 Mg Tablet PO 10 mg DAILY JOSÉ ANTONIO Administration Carvedilol 6.25 mg 07/31/20 21:00 08/03/20 08:31 Carvedilol 6.25 Mg Tablet PO 6.25 mg BID JOSÉ ANTONIO Administration Protocol Clotrimazole 1 appl 07/31/20 21:00 08/03/20 08:33 Clotrimazole 1 % Cream 15 Gm Tube TOPICAL 1 appl BID JOSÉ ANTONIO Administration Diphenoxylate HCl/Atropine 1 tab 07/31/20 17:52 Diphenoxylate/Atrop 2.5/0.025 Tablet PO TID PRN Diarrhea Enoxaparin Sodium 40 mg 07/30/20 11:00 08/03/20 10:29 Enoxaparin Sodium 40 Mg/0.4 Ml Syringe SUBCUT 40 mg Q24H JOSÉ ANTONIO Administration Fluticasone Propionate 2 spray 08/01/20 09:00 08/03/20 08:32 Fluticasone Propionate Nasal 16 Gm [place] NOSTRIL-B 2 spray DAILY JOSÉ ANTONIO Administration Fluticasone/Vilanterol 1 puff 08/03/20 08:00 08/03/20 07:35 Fluticasone/Vilanterol 100/25 Blst.W.Dev INHALE 1 puff RDAILY JOSÉ ANTONIO Administration Guaifenesin/Dextromethorphan 10 ml 08/02/20 10:15 08/03/20 10:29 Guaifenesin Dm 200/20/10 Ml 10 Ml Syrup PO 10 ml Q6H JOSÉ ANTONIO Administration Hydrochlorothiazide 25 mg 08/02/20 10:30 08/03/20 08:31 Hydrochlorothiazide 25 Mg Tablet PO 25 mg DAILY JOSÉ ANTONIO Administration Protocol Piperacillin Sod/Tazobactam 50 mls @ 100 mls/hr 08/02/20 08:00 08/03/20 10:07 Sod 3.375 gm/ Sodium Chloride IV Infused Q6H JOSÉ ANTONIO Infusion Levothyroxine Sodium 50 mcg 08/01/20 06:30 08/03/20 05:32 Levothyroxine Sodium 50 Mcg Tablet PO 50 mcg DAILY@0630 JOSÉ ANTONIO Administration Losartan Potassium 25 mg 08/01/20 09:00 08/03/20 08:31 Losartan Potassium 25 Mg Tablet PO 25 mg DAILY [facility] Administration Protocol Nystatin 1 appl 07/30/20 11:00 08/03/20 08:32 Nystatin Powder 15 Gm Bottle TOPICAL 1 appl BID [facility] Administration Protocol Omeprazole 40 mg 08/01/20 06:30 08/03/20 05:32 Omeprazole 40 Mg Capsule.Dr PO 40 mg DAILY@0630 [facility] Administration Pharmacy Consult 1 each 07/30/20 07:02 Consult Rx Perform Med Rec MISCELLANE ONCE PRN Consult order Pregabalin 150 mg 07/31/20 21:00 08/03/20 08:31 Pregabalin 150 Mg Capsule PO 150 mg BID JOSÉ ANTONIO Administration Sodium Chloride 3 ml 07/30/20 16:00 08/03/20 08:32 0.9 % Sodium Chloride Flush 3 Ml Syringe IVFLUSH 3 ml QSHIFT [facility] Administration Labs CBC & Chem 7: 08/03/20 05:18 08/01/20 05:48 Labs: Laboratory Results - last 24 hr 08/03/20 05:18 WBC 12.3 H RBC 3.64 L Hgb 10.7 L Hct 32.4 L MCV 89.0 MCH 29.4 MCHC 33.0 RDW 13.9 Plt Count 249 MPV 10.9 Immature Gran % (Auto) 0.6 H Neut % (Auto) 71.0 Lymph % (Auto) 15.2 L [place] % (Auto) 8.4 Eos % (Auto) 4.5 H Baso % (Auto) 0.3 Lymph # (Auto) 1.9 [place] # (Auto) 1.0 Eos # (Auto) 0.6 H Baso # (Auto) 0.0 Abs Immat Gran (auto) 0.08 H Absolute Neuts (auto) 8.7 H Absolute Nucleated RBC 0.000 Nucleated RBC % (auto) 0.0 Microbiology Microbiology Results: Microbiology 07/30/20 05:13 Blood - Venous Blood Culture - Preliminary No growth after 48 hours. 07/30/20 03:19 Blood - Venous Blood Culture - Preliminary No growth after 48 hours. Assessment and Plan (1) Multifocal pneumonia: Status: Acute (2) Obesity hypoventilation syndrome: Status: Acute (3) Obstructive sleep apnea: Status: Acute (4) Acute on chronic respiratory failure with hypoxia and hypercapnia: Status: Acute (5) Morbid obesity: Status: Acute Assessment and Plan: hospital d#5 69yo F with morbid obesity, OHS, MISSY on home BiPAP, HTN, hypothyroidism, GERD admitted to ICU for acute/chronic hypoxic/hypercarbic respiratory failure with multifocal PNA # acute/chronic hypoxic/hypercarbic respiratory failure - continue BiPAP at night, Pulm consult, RT consult for BiPAP - wean O2 as tolerated, was not on O2 at home # multifocal PNA - continue pip/behzad d#2, BCx negative, check PCT. will also check respiratory pathogen panel- initial COVID THEO negative but CT somewhat suspicious # HTN - continue losartan, carvedilol, HCTZ # HLD - continue statin # hypothyroidism - continue LT4 # neuropathy - continue pregabalin # morbid obesity - weight loss advised # VTE ppx - LMWH # dispo - inpatient pulm rehab advised but pt refuses, requesting to go home with services
[2020-08-03 17:46] LABS: Adenovirus PCR Not Detected (Not Detect.); Bordetella parapertussis PCR Not Detected (Not Detect.); Bordetella pertussis PCR Not Detected (Not Detect.); Chlamydia pneumoniae PCR Not Detected (Not Detect.); Coronavirus 229E PCR Not Detected (Not Detect.); Coronavirus HKU1 PCR Not Detected (Not Detect.); Coronavirus NL63 PCR Not Detected (Not Detect.); Coronavirus OC43 PCR Not Detected (Not Detect.); Human metapneumovirus PCR Not Detected (Not Detect.); Influenza A PCR Not Detected (Not Detect.); Influenza B PCR Not Detected (Not Detect.); Mycoplasma pneumoniae PCR Not Detected (Not Detect.); Parainfluenza 1 PCR Not Detected (Not Detect.); Parainfluenza 2 PCR Not Detected (Not Detect.); Parainfluenza 3 PCR Not Detected (Not Detect.); Parainfluenza 4 PCR Not Detected (Not Detect.); RSV PCR Not Detected (Not Detect.); Rhino/Enterovirus PCR Not Detected (Not Detect.); SARS-CoV-2 PCR Not Detected (Not Detect.)
--- NOTE | 2020-08-03 19:54 | CONS_ITS ---
DATE OF SERVICE: 08/03/2020 HISTORY OF PRESENT ILLNESS: This 69-year-old very pleasant female has been admitted since 07/30/2020 because she had an episode of nausea and vomiting along with upper abdominal pain at home. Following that, she became more short of breath and also continued to have some abdominal discomfort. She had no fever or chills at the time of admission. Prior to that, she has had no exposure to anyone with respiratory infection or GI symptoms. When she presented to the emergency room, she was noted to be hypoxemic and her ABGs also showed hypercapnia with pCO2 of 62. The patient was started on BiPAP therapy along with oxygen supplementation, and she was initially treated in intensive care unit, but within 24 hours, thus, she was weaned of BiPAP and just kept on oxygen 2 L/minute. PAST MEDICAL HISTORY: Includes morbid obesity throughout her adult life, and she is mostly at home with minimal walking with a walker in the house. She lives by herself and is attended by [employer] and visiting nurses. She has history of hypertension, hypothyroidism, GERD symptoms, and has been diagnosed to have obstructive sleep apnea since about 10-12 years ago. The patient has been using CPAP at night regularly and claims that she sleeps good. Her CPAP machine was changed about a year ago and it looks fine. She continues to get CPAP supplies regularly. For her sleep apnea, she used to be followed up by Dr. Ureña in [place], but has not seen him for 1-1/2 year, is primarily due to lack of transport and difficulty in going to the office, and there has been some sort of lack of communication between her and the office. PERSONAL HISTORY: She living by herself in the apartment and with limited activities. The patient denies smoking, drinking, or any addictive medications. REVIEW OF SYSTEMS: Indicates that she has morbid obesity with limited activity level as described above. She has GERD symptoms treated with medication. She also has intermittent diarrhea. She has peripheral neuropathy and that limits her walking. She has her usual seasonal allergies, and she has thyroid dysfunction which is being treated. PHYSICAL EXAMINATION: GENERAL: 69-year-old female is obviously obese, and her BMI is over 62. She is alert and orientated and has good reasonable conversation. HEENT: Head and scalp are okay. Face is rounded. Oropharynx: Crowded, Mallampati class 4. NECK: Short and obese. No JVD. Trachea midline. CHEST: Extremely obese chest wall and percussion note is not perceptible. Breath sounds are diminished. She has coarse crepitations over both lower lobes in the posterior aspect. No wheezes. CARDIAC: Sounds are very distant. Rhythm is regular and no murmurs are heard. ABDOMEN: Grossly obese and pendulous, but soft and nontender. EXTREMITIES: The patient has very bulky legs and fortunately, the skin is intact. The skin is warm. Peripheral pulses are not palpable. DIAGNOSTIC DATA: Workup on admission, her chest x-ray showed white streaks but no definite consolidation. CTA of the chest was negative for pulmonary embolism, however, showed segmental consolidation within the lower lobes bilaterally and also patchy perihilar ground-glass opacities. These findings were described as consistent with pulmonary aspiration and aspiration pneumonia as well as with COVID-19 pneumonia. LABORATORY DATA: COVID test was negative, and her other respiratory panel was also negative. On admission, her white cell count was 8.3, hemoglobin 13.5. Subsequently, white cell count 16.3 and 17.5, hemoglobin is around 11.2. She does have mild neutrophilia. BLOOD GASES: On admission, arterial blood gases were as follows: pH 7.31, pCO2 of 62, PO2 of 161. Venous blood gas on 07/31 was as follows: pH 7.47, pCO2 of 44, PO2 of 70. This represents mild respiratory alkalosis. Blood cultures x2 have been negative. CLINICAL IMPRESSION: Bilateral multifocal pneumonia, most likely due to pulmonary aspiration. The radiologic picture is consistent with COVID-19 pneumonia, also, but luckily her COVID test is reported negative. Morbid obesity. Chronic obstructive sleep apnea/hypoventilation syndrome. The patient has been using CPAP regularly. RECOMMENDATIONS: Continue to treat for aspiration pneumonia with IV Zosyn. Oxygen supplementation to keep O2 saturation above 90%. Currently, she is doing well with nasal cannula at 3 L/minute. The patient can start using her own CPAP at nighttime, and I have advised her to have someone bring her own CPAP machine from home. Once the CPAP machine is here, we will check about what her pressure settings and if there is any issue with the machine. At this point, she does not need the BiPAP. I think she will do okay just with her own CPAP. Thank you very much for asking me to see this patient. I will be glad to follow her along. MD CLIFF Medina/BREANNA / [phone]
[2020-08-04] VITALS (9 sets, daily range): BP systolic 111–179; BP diastolic 52–76; PULSE 60–77; RESP 18–20; TEMP 35.9–37.2; O2SAT 90–92
[2020-08-04] MEDS: Piperacillin Sodium/Tazobactam 3.375 GM in 0.9 % Sodium Chloride 50 ML IV ×4 (04:30→21:15)
[2020-08-04] MEDS: guaiFENesin DM 200/20/10 ML 10 ML SYRUP PO ×4 (04:31→21:16)
[2020-08-04] MEDS: Levothyroxine Sodium 50 MCG TABLET PO (06:12)
[2020-08-04] MEDS: Omeprazole 40 MG CAPSULE.DR PO (06:12)
[2020-08-04 06:16] LABS: VBG Base Excess 10.5 mmol/L; VBG HCO3 35 mmol/L (22-26); VBG pCO2 47 mmHg; VBG pH 7.47 (7.32-7.43); VBG pO2 83 mmHg
[2020-08-04 06:17] LABS: Venous Blood Gas Refer to POC result
[2020-08-04 06:58] LABS: MANUAL DIFF FLAG NO
[2020-08-04 07:04] LABS: Basophils Absolute Auto 0.1 X10*3/uL (0.0-0.2); Basophils Percent Auto 0.4 % (0-2); Eosinophils Absolute Auto 0.7 X10*3/uL (0.0-0.4); Eosinophils Percent Auto 6.2 % (0-4); Hematocrit 32.9 % (37-47); Hemoglobin 10.6 g/dl (12.0-16.0); Imm Gran Abs Auto 0.14 X10*3/uL (0.00-0.03); Imm Gran Pct Auto 1.2 % (0.0-0.4); Lymphocytes Absolute Auto 1.9 X10*3/uL (1.2-4.9); Lymphocytes Percent Auto 16.9 % (20-40); Mean Corpuscular HGB Conc 32.2 g/dl (31.0-35.0); Mean Corpuscular Hemoglobin 28.3 pg (27.0-33.0); Mean Corpuscular Volume 87.7 fL (80-98); Mean Platelet Volume 11.1 fL (9.4-12.3); Monocytes Absolute Auto 1.2 X10*3/uL (0.1-1.2); Monocytes Percent Auto 10.4 % (2-11); Neutrophils Absolute Auto 7.4 X10*3/uL (2.0-8.3); Neutrophils Percent Auto 64.9 % (45-73); Platelet Count 281 X10*3/uL (160-400); Red Blood Count 3.75 X10*6/uL (4.20-5.50); Red Cell Distribution Width 13.8 % (11.0-16.0); White Blood Count 11.3 X10*3/uL (4.8-10.8)
[2020-08-04 07:35] LABS: Anion Gap 14 (12-20); Blood Urea Nitrogen 27 mg/dL (9-16); Carbon Dioxide 31 mmol/L (22-29); Chloride 100 mmol/L (96-108); Estimated Glomerular Filt Rate > 60; Glucose Random 100 mg/dL (60-115); Potassium 3.3 mmol/L (3.3-5.1); Sodium 142 mmol/L (135-145)
[2020-08-04 07:37] LABS: B Type Natriuretic Peptide 86 pg/mL (<100)
[2020-08-04 08:22] LABS: Procalcitonin 0.28 ng/mL
[2020-08-04] MEDS: carvediloL 6.25 MG TABLET PO ×2 (08:30→21:15)
[2020-08-04] MEDS: Atorvastatin Calcium 10 MG TABLET PO (08:30)
[2020-08-04] MEDS: hydroCHLOROthiazide 25 MG TABLET PO (08:31)
[2020-08-04] MEDS: 0.9 % Sodium Chloride Flush 3 ML SYRINGE IVFLUSH ×2 (08:31→18:06)
[2020-08-04] MEDS: Losartan Potassium 25 MG TABLET PO (08:31)
[2020-08-04] MEDS: Nystatin Powder 15 GM BOTTLE 1 APPL TOPICAL ×2 (08:32→22:35)
[2020-08-04] MEDS: Fluticasone Propionate Nasal 16 GM SPRAY 2 SPRAY NOSTRIL-B (08:32)
--- NOTE | 2020-08-04 10:53 | P.PNPL_ITS ---
Subjective Subjective Date of Service: 08/04/20 Principal diagnosis: BILATERAL pNEUMONIA/ RESP.FAILURE Interval history: This 69 years old female is feeling better, Respiratory bay she did not have much distress. Tried to use her own CPAP at night but O2 sat kept on dropping when she was using CPAP. So the effort to keep her on CPAP was aborted . She remains afebrile, and doing well on oxygen 3 L/minute. Objective Data Labs CBC & Chem 7: 08/04/20 06:06 08/04/20 06:05 Labs: Laboratory Results - last 24 hr 08/03/20 08/04/20 08/04/20 17:40 06:05 06:05 WBC RBC Hgb Hct MCV MCH MCHC RDW Plt Count MPV Immature Gran % (Auto) Neut % (Auto) Lymph % (Auto) [place] % (Auto) Eos % (Auto) Baso % (Auto) Lymph # (Auto) [place] # (Auto) Eos # (Auto) Baso # (Auto) Abs Immat Gran (auto) Absolute Neuts (auto) Absolute Nucleated RBC Nucleated RBC % (auto) VBG pH VBG pCO2 VBG pO2 VBG HCO3 VBG O2 Saturation VBG Base Excess Sodium 142 Potassium 3.3 Chloride 100 Carbon Dioxide 31 H Anion Gap 14 BUN 27 H Creatinine 0.84 Estim Creat Clear Calc 101.0 Estimated GFR > 60 Random Glucose 100 Calcium 8.0 L B-Natriuretic Peptide Procalcitonin 0.28 Respiratory Panel Mike See Note Adenovirus (Rapid PCR) Not Detected B.pert (TEM-PCR) Not Detected B.parapertussis DNA PCR Not Detected C. pneumoniae DNA (PCR) Not Detected Coronavirus OC43 (PCR) Not Detected Coronavirus HKU1 (PCR) Not Detected Coronavirus 229E (PCR) Not Detected Coronavirus NL63 (PCR) Not Detected Human Metapneumovir PCR Not Detected Influenza A (RT-PCR) Not Detected Influenza B (RT-PCR) Not Detected M. pneumoniae (PCR) Not Detected Parainfluenza 1 (PCR) Not Detected Parainfluenza 2 (PCR) Not Detected Parainfluenza 3 (PCR) Not Detected Parainfluenza 4 (PCR) Not Detected RSV (PCR) Not Detected Entero/Rhino (PCR) Not Detected SARS-CoV-2 RNA (RT-PCR) Not Detected 08/04/20 08/04/20 08/04/20 06:05 06:06 06:09 WBC 11.3 H RBC 3.75 L Hgb 10.6 L Hct 32.9 L MCV 87.7 MCH 28.3 MCHC 32.2 RDW 13.8 Plt Count 281 MPV 11.1 Immature Gran % (Auto) 1.2 H Neut % (Auto) 64.9 Lymph % (Auto) 16.9 L [place] % (Auto) 10.4 Eos % (Auto) 6.2 H Baso % (Auto) 0.4 Lymph # (Auto) 1.9 [place] # (Auto) 1.2 Eos # (Auto) 0.7 H Baso # (Auto) 0.1 Abs Immat Gran (auto) 0.14 H Absolute Neuts (auto) 7.4 Absolute Nucleated RBC 0.000 Nucleated RBC % (auto) 0.0 VBG pH 7.47 H VBG pCO2 47 VBG pO2 83 VBG HCO3 35 H VBG O2 Saturation 96.0 VBG Base Excess 10.5 Sodium Potassium Chloride Carbon Dioxide Anion Gap BUN Creatinine Estim Creat Clear Calc Estimated GFR Random Glucose Calcium B-Natriuretic Peptide 86 Procalcitonin Respiratory Panel Mike Adenovirus (Rapid PCR) B.pert (TEM-PCR) B.parapertussis DNA PCR C. pneumoniae DNA (PCR) Coronavirus OC43 (PCR) Coronavirus HKU1 (PCR) Coronavirus 229E (PCR) Coronavirus NL63 (PCR) Human Metapneumovir PCR Influenza A (RT-PCR) Influenza B (RT-PCR) M. pneumoniae (PCR) Parainfluenza 1 (PCR) Parainfluenza 2 (PCR) Parainfluenza 3 (PCR) Parainfluenza 4 (PCR) RSV (PCR) Entero/Rhino (PCR) SARS-CoV-2 RNA (RT-PCR) Microbiology Microbiology Results: Microbiology 07/30/20 05:13 Blood - Venous Blood Culture - Final No growth after 5 days. 07/30/20 03:19 Blood - Venous Blood Culture - Final No growth after 5 days. Review of Systems Review of Systems Yes all other systems are reviewed and are negative Reports Abnormal speech present Physical Exam Vital Signs: Vital Signs: Last Vital Signs Temp 96.6 F L 08/04/20 07:22 Pulse 66 08/04/20 07:22 Resp 20 08/04/20 07:22 BP 136/60 04/28/21 07:22 Pulse Ox 92 08/04/20 07:22 Oxygen Flow Rate 15 07/30/20 01:35 Body Mass Index 62.1 Const: Other: Patient is morbidly obese, sitting in the recliner. General: comfortable, no acute distress, alert and awake Orientation/consciousness: patient oriented x3 HENMT: Head: Yes normal to inspection General nose exam: No nasal polyps present and No nasal discharge present Face and sinus: Yes sinuses nontender Mouth: oropharynx abnormals (Oropharynx is very crowded, Mallampati class 4) Throat: Yes posterior oropharynx normal Eyes: General: appearance normal, both eyes and all related structures Neck: Neck: Yes normal visual inspection (Neck is very obese), Yes no lymphadenopathy, Yes trachea midline and Yes no JVD Thyroid: Thyroid normal Chest: Other: Chest wall is extremely obese, no local tenderness Resp: Other: Breath sounds are very distant, a few crepitations over the basilar areas ,no wheezes Cardio: Palpation: PMI not normal (Not palpable) Rate: regular rate Rhythm: regular rhythm Heart sounds: no gallops and no murmurs GI: Palpation (GI): Soft to palpation, nontender, No hepatosplenomegaly present, no masses and Other GI palpation findings present (Abdomen is grossly obese and pendulous.) Auscultation: normal bowel sounds Back/Spine/Pelvis: Thoracic/Lumbar Spine: thoracic and lumbar spine normal to inspection Skin: General skin exam: no rashes or lesions noted Neuro: General: patient oriented x3 and no focal motor deficits Cranial nerves: Yes CN's II-XII intact bilaterally Speech: Abnormal speech present Extrem: General: Yes normal to inspection, Yes no clubbing, cyanosis or edema, Yes no calf tenderness and Yes venous stasis dermatitis Psych: Speech and movement: Normal speech and movement present Assessment and Plan Assessment and plan (1) Multifocal pneumonia: Problem details: Clinically she is improving, Plan is to continue the present to antibiotic coverage. Status: Acute (2) Morbid obesity: Problem details: This is a chronic problem and would need to be attended later on Status: Acute (3) Obstructive sleep apnea: Problem details: Patient does use CPAP at home. Her own CPAP machine is checked seems to be working fine, pressure setting is in auto mode( 5-12 cms ) she has nasal mask which is probably not adequate for her,She will need a full face mask. Status: Acute (4) Obesity hypoventilation syndrome: Problem details: Acute on chronic hypoventilation state but improved, VBGs this a.m. pH 7.47 pCO2 47 PO2 83. Status: Acute (5) Acute on chronic respiratory failure with hypoxia and hypercapnia: Problem details: I think her acute phase of respiratory failure has resolved, and now she just has her chronic baseline respiratory failure. She may not be able to tolerate the CPAP at night at this time. We can continue to keep her on oxygen 3 L/minute. Start on deep breathing exercises with incentive spirometer., and T chart to do pursed lip breathing exercises. Status: Acute Time Spent With Patient Time: Total time spent is greater than 50% in coordination of care (as documented) at patient's floor/unit and/or counseling patient: Time with patient: 25 - 35 minutes
[2020-08-04] MEDS: Pregabalin 150 MG CAPSULE PO ×2 (10:54→21:16)
[2020-08-04] MEDS: Enoxaparin Sodium 40 MG/0.4 ML SYRINGE SUBCUT (10:55)
[2020-08-04] MEDS: Clotrimazole 1 % Cream 15 GM TUBE 1 APPL TOPICAL ×2 (11:02→22:35)
--- NOTE | 2020-08-04 11:35 | MHC.CM.PN ---
Per ROUNDS discussion, Patient is not yet medically cleared for dc (not tolerating CPAP, IV Zosyn). Home with services is the goal for dc and CM will continue to follow for possible need to adjust the dc plan.
--- NOTE | 2020-08-04 15:32 | P.PNIM_ITS ---
Subjective Subjective Date of Service: 08/04/20 Interval History: breathing improved, though still on Venti mask at 40% fiO2 no fever cough improved still refuses STR Physical Exam Vital Signs: Vital Signs: Last Vital Signs Temp 97.7 F 08/04/20 15:25 Pulse 68 08/04/20 15:25 Resp 18 08/04/20 15:25 BP 140/65 H 08/04/20 15:25 Pulse Ox 92 08/04/20 15:25 Oxygen Flow Rate 15 07/30/20 01:35 Body Mass Index 62.1 Gen: in no acute distress HEENT: sclera anicteric, moist mucus membranes Neck: supple Lungs: diminished bilaterally Heart: regular rate and rhythm, no murmurs Abd: soft, non-tender, non-distended, morbidly obese Ext: no edema Skin: warm/well-perfused Neuro: alert and oriented x3, no focal findings Psych: appropriate affect Objective Data Current Medications Generic Name Dose Route Start Last Admin Trade Name Freq PRN Reason Stop Dose Admin Acetaminophen 650 mg 07/30/20 22:40 08/01/20 20:06 Acetaminophen 325 Mg Tablet PO 650 mg Q6H PRN Administration Pain, Mild (Pain Scale 1-3) Atorvastatin Calcium 10 mg 08/01/20 09:00 08/04/20 08:30 Atorvastatin Calcium 10 Mg Tablet PO 10 mg DAILY JOSÉ ANTONIO Administration Carvedilol 6.25 mg 07/31/20 21:00 08/04/20 08:30 Carvedilol 6.25 Mg Tablet PO 6.25 mg BID JOSÉ ANTONIO Administration Protocol Clotrimazole 1 appl 07/31/20 21:00 08/04/20 11:02 Clotrimazole 1 % Cream 15 Gm Tube TOPICAL 1 appl BID JOSÉ ANTONIO Administration Diphenoxylate HCl/Atropine 1 tab 07/31/20 17:52 Diphenoxylate/Atrop 2.5/0.025 Tablet PO TID PRN Diarrhea Enoxaparin Sodium 40 mg 07/30/20 11:00 08/04/20 10:55 Enoxaparin Sodium 40 Mg/0.4 Ml Syringe SUBCUT 40 mg Q24H JOSÉ ANTONIO Administration Fluticasone Propionate 2 spray 08/01/20 09:00 08/04/20 08:32 Fluticasone Propionate Nasal 16 Gm [place] NOSTRIL-B 2 spray DAILY JOSÉ ANTONIO Administration Fluticasone/Vilanterol 1 puff 08/03/20 08:00 08/03/20 07:35 Fluticasone/Vilanterol 100/25 Blst.W.Dev INHALE 1 puff RDAILY JOSÉ ANTONIO Administration Guaifenesin/Dextromethorphan 10 ml 08/02/20 10:15 08/04/20 10:54 Guaifenesin Dm 200/20/10 Ml 10 Ml Syrup PO 10 ml Q6H JOSÉ ANTONIO Administration Hydrochlorothiazide 25 mg 08/02/20 10:30 08/04/20 08:31 Hydrochlorothiazide 25 Mg Tablet PO 25 mg DAILY JOSÉ ANTONIO Administration Protocol Piperacillin Sod/Tazobactam 50 mls @ 100 mls/hr 08/03/20 16:00 08/04/20 11:45 Sod 3.375 gm/ Sodium Chloride IV Infused Q6H JOSÉ ANTONIO Infusion Levothyroxine Sodium 50 mcg 08/01/20 06:30 08/04/20 06:12 Levothyroxine Sodium 50 Mcg Tablet PO 50 mcg DAILY@0630 JOSÉ ANTONIO Administration Losartan Potassium 25 mg 08/01/20 09:00 08/04/20 08:31 Losartan Potassium 25 Mg Tablet PO 25 mg DAILY [facility] Administration Protocol Nystatin 1 appl 07/30/20 11:00 08/04/20 08:32 Nystatin Powder 15 Gm Bottle TOPICAL 1 appl BID [facility] Administration Protocol Omeprazole 40 mg 08/01/20 06:30 08/04/20 06:12 Omeprazole 40 Mg Capsule. PO 40 mg DAILY@0630 [facility] Administration Pharmacy Consult 1 each 07/30/20 07:02 Consult Rx Perform Med Rec MISCELLANE ONCE PRN Consult order Pregabalin 150 mg 07/31/20 21:00 08/04/20 10:54 Pregabalin 150 Mg Capsule PO 150 mg BID JOSÉ ANTONIO Administration Sodium Chloride 3 ml 07/30/20 16:00 08/04/20 08:31 0.9 % Sodium Chloride Flush 3 Ml Syringe IVFLUSH 3 ml QSHIFT [facility] Administration Labs CBC & Chem 7: 08/04/20 06:06 08/04/20 06:05 Labs: Laboratory Results - last 24 hr 08/03/20 08/04/20 08/04/20 17:40 06:05 06:05 WBC RBC Hgb Hct MCV MCH MCHC RDW Plt Count MPV Immature Gran % (Auto) Neut % (Auto) Lymph % (Auto) [place] % (Auto) Eos % (Auto) Baso % (Auto) Lymph # (Auto) [place] # (Auto) Eos # (Auto) Baso # (Auto) Abs Immat Gran (auto) Absolute Neuts (auto) Absolute Nucleated RBC Nucleated RBC % (auto) VBG pH VBG pCO2 VBG pO2 VBG HCO3 VBG O2 Saturation VBG Base Excess Sodium 142 Potassium 3.3 Chloride 100 Carbon Dioxide 31 H Anion Gap 14 BUN 27 H Creatinine 0.84 Estim Creat Clear Calc 101.0 Estimated GFR > 60 Random Glucose 100 Calcium 8.0 L B-Natriuretic Peptide Procalcitonin 0.28 Respiratory Panel Mike See Note Adenovirus (Rapid PCR) Not Detected B.pert (TEM-PCR) Not Detected B.parapertussis DNA PCR Not Detected C. pneumoniae DNA (PCR) Not Detected Coronavirus OC43 (PCR) Not Detected Coronavirus HKU1 (PCR) Not Detected Coronavirus 229E (PCR) Not Detected Coronavirus NL63 (PCR) Not Detected Human Metapneumovir PCR Not Detected Influenza A (RT-PCR) Not Detected Influenza B (RT-PCR) Not Detected M. pneumoniae (PCR) Not Detected Parainfluenza 1 (PCR) Not Detected Parainfluenza 2 (PCR) Not Detected Parainfluenza 3 (PCR) Not Detected Parainfluenza 4 (PCR) Not Detected RSV (PCR) Not Detected Entero/Rhino (PCR) Not Detected SARS-CoV-2 RNA (RT-PCR) Not Detected 08/04/20 08/04/20 08/04/20 06:05 06:06 06:09 WBC 11.3 H RBC 3.75 L Hgb 10.6 L Hct 32.9 L MCV 87.7 MCH 28.3 MCHC 32.2 RDW 13.8 Plt Count 281 MPV 11.1 Immature Gran % (Auto) 1.2 H Neut % (Auto) 64.9 Lymph % (Auto) 16.9 L [place] % (Auto) 10.4 Eos % (Auto) 6.2 H Baso % (Auto) 0.4 Lymph # (Auto) 1.9 [place] # (Auto) 1.2 Eos # (Auto) 0.7 H Baso # (Auto) 0.1 Abs Immat Gran (auto) 0.14 H Absolute Neuts (auto) 7.4 Absolute Nucleated RBC 0.000 Nucleated RBC % (auto) 0.0 VBG pH 7.47 H VBG pCO2 47 VBG pO2 83 VBG HCO3 35 H VBG O2 Saturation 96.0 VBG Base Excess 10.5 Sodium Potassium Chloride Carbon Dioxide Anion Gap BUN Creatinine Estim Creat Clear Calc Estimated GFR Random Glucose Calcium B-Natriuretic Peptide 86 Procalcitonin Respiratory Panel Mike Adenovirus (Rapid PCR) B.pert (TEM-PCR) B.parapertussis DNA PCR C. pneumoniae DNA (PCR) Coronavirus OC43 (PCR) Coronavirus HKU1 (PCR) Coronavirus 229E (PCR) Coronavirus NL63 (PCR) Human Metapneumovir PCR Influenza A (RT-PCR) Influenza B (RT-PCR) M. pneumoniae (PCR) Parainfluenza 1 (PCR) Parainfluenza 2 (PCR) Parainfluenza 3 (PCR) Parainfluenza 4 (PCR) RSV (PCR) Entero/Rhino (PCR) SARS-CoV-2 RNA (RT-PCR) Microbiology Microbiology Results: Microbiology 07/30/20 05:13 Blood - Venous Blood Culture - Final No growth after 5 days. 07/30/20 03:19 Blood - Venous Blood Culture - Final No growth after 5 days. Assessment and Plan (1) Multifocal pneumonia: Problem details: Clinically she is improving, Plan is to continue the present to antibiotic coverage. Status: Acute (2) Obesity hypoventilation syndrome: Problem details: Acute on chronic hypoventilation state but improved, VBGs this a.m. pH 7.47 pCO2 47 PO2 83. Status: Acute (3) Obstructive sleep apnea: Problem details: Patient does use CPAP at home. Her own CPAP machine is checked seems to be working fine, pressure setting is in auto mode( 5-12 cms ) she has nasal mask which is probably not adequate for her,She will need a full face mask. Status: Acute (4) Acute on chronic respiratory failure with hypoxia and hypercapnia: Problem details: I think her acute phase of respiratory failure has resolved, and now she just has her chronic baseline respiratory failure. She may not be able to tolerate the CPAP at night at this time. We can continue to keep her on oxygen 3 L/minute. Start on deep breathing exercises with incentive spirometer., and T chart to do pursed lip breathing exercises. Status: Acute (5) Morbid obesity: Problem details: This is a chronic problem and would need to be attended later on Status: Acute Assessment and Plan: hospital d#5 69yo F with morbid obesity, OHS, MISSY on home CPAP, HTN, hypothyroidism, GERD admitted to ICU for acute/chronic hypoxic/hypercarbic respiratory failure with multifocal PNA # acute/chronic hypoxic/hypercarbic respiratory failure - home CPAP functioning OK but needs full facial mask; Pulm following - wean O2 as tolerated, was not on O2 at home but may need to go home on it # multifocal PNA - continue pip/behzad d#3, BCx negative, trend PCT. COVID-19 THEO and respiratory pathogen panel both negative # HTN - continue losartan, carvedilol, HCTZ # HLD - continue statin # hypothyroidism - continue LT4 # neuropathy - continue pregabalin # morbid obesity - weight loss advised # VTE ppx - LMWH # dispo - inpatient pulm rehab advised but pt refuses, requesting to go home with services- will need home O2 eval
[2020-08-05] VITALS (7 sets, daily range): BP systolic 114–141; BP diastolic 55–73; PULSE 58–84; RESP 15–20; TEMP 35.7–36.7; O2SAT 88–94
[2020-08-05] MEDS: 0.9 % Sodium Chloride Flush 3 ML SYRINGE IVFLUSH ×3 (00:04→16:45)
[2020-08-05] MEDS: guaiFENesin DM 200/20/10 ML 10 ML SYRUP PO ×4 (03:58→20:30)
[2020-08-05] MEDS: Piperacillin Sodium/Tazobactam 3.375 GM in 0.9 % Sodium Chloride 50 ML IV ×2 (03:58→08:49)
[2020-08-05] MEDS: Omeprazole 40 MG CAPSULE.DR PO (05:29)
[2020-08-05] MEDS: Levothyroxine Sodium 50 MCG TABLET PO (05:29)
[2020-08-05] MEDS: Diphenoxylate/Atrop 2.5/0.025 TABLET 1 TAB PO (05:32)
[2020-08-05 07:15] LABS: Glucose, Whole Blood 103 mg/dL (60-115)
[2020-08-05] MEDS: Losartan Potassium 25 MG TABLET PO (08:49)
[2020-08-05] MEDS: carvediloL 6.25 MG TABLET PO ×2 (08:50→20:30)
[2020-08-05] MEDS: hydroCHLOROthiazide 25 MG TABLET PO (08:50)
[2020-08-05] MEDS: Atorvastatin Calcium 10 MG TABLET PO (08:50)
[2020-08-05] MEDS: Pregabalin 150 MG CAPSULE PO ×2 (08:50→20:30)
[2020-08-05] MEDS: Nystatin Powder 15 GM BOTTLE 1 APPL TOPICAL ×2 (08:58→20:30)
[2020-08-05] MEDS: Fluticasone Propionate Nasal 16 GM SPRAY 2 SPRAY NOSTRIL-B (08:59)
[2020-08-05] MEDS: Clotrimazole 1 % Cream 15 GM TUBE 1 APPL TOPICAL ×2 (09:01→20:30)
--- NOTE | 2020-08-05 09:58 | P.PNPL_ITS ---
Subjective Subjective Date of Service: 08/05/20 Principal diagnosis: BILATERAL pNEUMONIA/ RESP.FAILURE Interval history: THIS PATIENT CONTINUES TO IMPROVE SLOWLY. SHE HAS VERY LITTLE RESPIRATORY DISTRESS. SHE REMAINS MOSTLY IN THE RECLINER. TEMPERATURE HAS BEEN NORMAL. DENIES ANY COUGH OR EXPECTORATION AT THIS TIME. Objective Data Labs CBC & Chem 7: 08/04/20 06:06 08/04/20 06:05 Labs: Laboratory Results - last 24 hr 08/05/20 07:04 POC Glucose 103 Microbiology Microbiology Results: Microbiology 07/30/20 05:13 Blood - Venous Blood Culture - Final No growth after 5 days. 07/30/20 03:19 Blood - Venous Blood Culture - Final No growth after 5 days. Physical Exam Vital Signs: Vital Signs: Last Vital Signs Temp 96.3 F L 08/05/20 07:28 Pulse 60 08/05/20 07:28 Resp 20 08/05/20 07:28 BP 129/61 08/05/20 07:28 Pulse Ox 90 L 08/05/20 07:28 Oxygen Flow Rate 15 07/30/20 01:35 Body Mass Index 62.1 Const: Other: CHRONICALLY OBESE AND RELATIVELY A MOBILE. General: comfortable, no acute distress, alert and awake Orientation/consciousness: patient oriented x3 HENMT: Head: Yes normal to inspection General nose exam: No nasal polyps present and No nasal discharge present Face and sinus: Yes sinuses nontender Mouth: oropharynx abnormals (OROPHARYNX IS CROWDED BUT THERE IS NO INFECTION) Throat: Yes posterior oropharynx normal Eyes: General: appearance normal, both eyes and all related structures Neck: Neck: Yes normal visual inspection, Yes no lymphadenopathy, Yes trachea midline, Yes no JVD and Yes other (NECK IS SIGNIFICANTLY OBESE) Thyroid: Thyroid normal Chest: Other: CHEST WALL VERY OBESE BUT NON TENDER. Resp: Other: BREATH SOUNDS ARE VERY DISTANT ON BOTH SIDES, NO WHEEZES FEW INSPIRATORY CREPITATIONS HEARD OVER THE BASILAR AREAS. Cardio: Palpation: PMI not normal (NOT PALPABLE) Rate: regular rate Rhythm: regular rhythm Heart sounds: no gallops and no murmurs GI: Palpation (GI): Soft to palpation, nontender, No hepatosplenomegaly present, no masses and Other GI palpation findings present (ABDOMEN IS GROSSLY OBESE AND PENDULOUS) Auscultation: normal bowel sounds Back/Spine/Pelvis: Thoracic/Lumbar Spine: thoracic and lumbar spine normal to inspection Skin: General skin exam: no rashes or lesions noted Neuro: General: patient oriented x3 and no focal motor deficits Cranial nerves: Yes CN's II-XII intact bilaterally Extrem: General: Yes normal to inspection, Yes no clubbing, cyanosis or edema, Yes no calf tenderness and Yes venous stasis dermatitis (MILD CHRONIC) Psych: Speech and movement: Normal speech and movement present Assessment and Plan Assessment and plan (1) Morbid obesity: Problem details: This is a chronic problem and would need to be attended later on Status: Acute (2) Multifocal pneumonia: Problem details: Clinically she is improving, Plan is to continue the present to antibiotic coverage. Chest Xray for follow up Status: Acute (3) Obesity hypoventilation syndrome: Problem details: Acute on chronic hypoventilation state but improved, VBGs this a.m. pH 7.47 pCO2 47 PO2 83. Incentive Spirometry ordered Status: Acute (4) Obstructive sleep apnea: Problem details: Patient does use CPAP at home. Her own CPAP machine is checked. seems to be working fine, pressure setting is in auto mode( 5-12 cms ) she has nasal mask which is probably not adequate for her,She will need a full face mask. At present she is doing OK without the CPAP . Status: Acute Time Spent With Patient Time: Total time spent is greater than 50% in coordination of care (as doc umented) at patient's floor/unit and/or counseling patient: Time with patient: 15 - 24 minutes
[2020-08-05] MEDS: Enoxaparin Sodium 40 MG/0.4 ML SYRINGE SUBCUT (10:46)
--- NOTE | 2020-08-05 11:14 | P.PNIM_ITS ---
Subjective Subjective Date of Service: 08/05/20 Interval History: f/u on PNA. Feels better, breathing is better Review of Systems Gen: no fever Resp: no sob, no cough CV: no chest, no ROCHA, no leg edema GI: No n/v, no abd pain Neuro: No confusion Physical Exam Vital Signs: Vital Signs: Last Vital Signs Temp 96.3 F L 08/05/20 07:28 Pulse 60 08/05/20 07:28 Resp 20 08/05/20 07:28 BP 129/61 08/05/20 07:28 Pulse Ox 90 L 08/05/20 07:28 Oxygen Flow Rate 15 07/30/20 01:35 Body Mass Index 62.1 Objective Data Current Medications Generic Name Dose Route Start Last Admin Trade Name Freq PRN Reason Stop Dose Admin Acetaminophen 650 mg 07/30/20 22:40 08/01/20 20:06 Acetaminophen 325 Mg Tablet PO 650 mg Q6H PRN Administration Pain, Mild (Pain Scale 1-3) Atorvastatin Calcium 10 mg 08/01/20 09:00 08/05/20 08:50 Atorvastatin Calcium 10 Mg Tablet PO 10 mg DAILY JOSÉ ANTONIO Administration Carvedilol 6.25 mg 07/31/20 21:00 08/05/20 08:50 Carvedilol 6.25 Mg Tablet PO 6.25 mg BID JOSÉ ANTONIO Administration Protocol Clotrimazole 1 appl 07/31/20 21:00 08/05/20 09:01 Clotrimazole 1 % Cream 15 Gm Tube TOPICAL 1 appl BID JOSÉ ANTONIO Administration Diphenoxylate HCl/Atropine 1 tab 07/31/20 17:52 08/05/20 05:32 Diphenoxylate/Atrop 2.5/0.025 Tablet PO 1 tab TID PRN Administration Diarrhea Enoxaparin Sodium 40 mg 07/30/20 11:00 08/05/20 10:46 Enoxaparin Sodium 40 Mg/0.4 Ml Syringe SUBCUT 40 mg Q24H JOSÉ ANTONIO Administration Fluticasone Propionate 2 spray 08/01/20 09:00 08/05/20 08:59 Fluticasone Propionate Nasal 16 Gm [place] NOSTRIL-B 2 spray DAILY JOSÉ ANTONIO Administration Fluticasone/Vilanterol 1 puff 08/03/20 08:00 08/05/20 07:56 Fluticasone/Vilanterol 100/25 Blst.W.Dev INHALE Not Given RDAILY [facility] Guaifenesin/Dextromethorphan 10 ml 08/02/20 10:15 08/05/20 08:49 Guaifenesin Dm 200/20/10 Ml 10 Ml Syrup PO 10 ml Q6H JOSÉ ANTONIO Administration Hydrochlorothiazide 25 mg 08/02/20 10:30 08/05/20 08:50 Hydrochlorothiazide 25 Mg Tablet PO 25 mg DAILY [facility] Administration Protocol Piperacillin Sod/Tazobactam 50 mls @ 100 mls/hr 08/03/20 16:00 08/05/20 09:27 Sod 3.375 gm/ Sodium Chloride IV Infused Q6H [facility] Infusion Levothyroxine Sodium 50 mcg 08/01/20 06:30 08/05/20 05:29 Levothyroxine Sodium 50 Mcg Tablet PO 50 mcg DAILY@0630 [facility] Administration Losartan Potassium 25 mg 08/01/20 09:00 08/05/20 08:49 Losartan Potassium 25 Mg Tablet PO 25 mg DAILY [facility] Administration Protocol Nystatin 1 appl 07/30/20 11:00 08/05/20 08:58 Nystatin Powder 15 Gm Bottle TOPICAL 1 appl BID [facility] Administration Protocol Omeprazole 40 mg 08/01/20 06:30 08/05/20 05:29 Omeprazole 40 Mg Capsule. PO 40 mg DAILY@0630 [facility] Administration Pharmacy Consult 1 each 07/30/20 07:02 Consult Rx Perform Med Rec MISCELLANE ONCE PRN Consult order Pregabalin 150 mg 07/31/20 21:00 08/05/20 08:50 Pregabalin 150 Mg Capsule PO 150 mg BID [facility] Administration Sodium Chloride 3 ml 07/30/20 16:00 08/05/20 08:58 0.9 % Sodium Chloride Flush 3 Ml Syringe IVFLUSH 3 ml QSHIFT [facility] Administration Labs CBC & Chem 7: 08/04/20 06:06 08/04/20 06:05 Microbiology Microbiology Results: Microbiology 07/30/20 05:13 Blood - Venous Blood Culture - Final No growth after 5 days. 07/30/20 03:19 Blood - Venous Blood Culture - Final No growth after 5 days. Assessment and Plan (1) Morbid obesity: Status: Acute (2) Multifocal pneumonia: Status: Acute (3) Obesity hypoventilation syndrome: Status: Acute (4) Obstructive sleep apnea: Status: Acute Assessment and Plan: hospital d#6 69yo F with morbid obesity, OHS, MISSY on home CPAP, HTN, hypothyroidism, GERD admitted to ICU for acute/chronic hypoxic/hypercarbic respiratory failure with multifocal PNA # acute/chronic hypoxic/hypercarbic respiratory failure - home CPAP functioning OK but needs full facial mask; Pulm following - wean O2 as tolerated, was not on O2 at home but may need to go home on it # multifocal PNA - continue pip/behzad d#4, BCx negative, trend PCT. COVID-19 THEO and respiratory pathogen panel both negative. Change to Augmentin today # HTN - continue losartan, carvedilol, HCTZ # HLD - continue statin # hypothyroidism - continue LT4 # neuropathy - continue pregabalin # morbid obesity - weight loss advised # VTE ppx - LMWH # dispo - inpatient pulm rehab advised but pt refuses, requesting to go home with services- home O2 eval today
[2020-08-05] MEDS: Amoxicillin/Potassium Clav 875 MG TABLET PO (20:30)
[2020-08-06] VITALS: BP 164/79; PULSE 74; RESP 18; TEMP 36.7; O2SAT 95
[2020-08-06] MEDS: 0.9 % Sodium Chloride Flush 3 ML SYRINGE IVFLUSH (01:24)
[2020-08-06 03:57] VITALS: BP 159/62; PULSE 78; RESP 18; TEMP 36.6; O2SAT 95
[2020-08-06] MEDS: guaiFENesin DM 200/20/10 ML 10 ML SYRUP PO (03:59)
[2020-08-06 07:46] VITALS: BP 161/74; PULSE 79; RESP 20; TEMP 36.8; O2SAT 89
[2020-08-06 09:47] LABS: VBG HCO3 30 mmol/L (22-26); VBG pCO2 40 mmHg; VBG pH 7.47 (7.32-7.43); VBG pO2 47 mmHg
[2020-08-06 09:49] LABS: Venous Blood Gas Refer to POC result
[2020-08-06 10:03] LABS: Appearance Urine CLEAR; Color Urine YELLOW; Glucose Urine UA NEG (NEG); Leukocyte Esterase Urine NEG (NEG); Nitrite Urine NEG (NEG); Urine Blood 2+ (NEG); Urine Ketones NEG (NEG); Urine Protein 2+ MG/DL (NEG-TRACE)
[2020-08-06 10:11] LABS: Squamous Epithelial Cell Urine 3+ /LPF; WBC Urine 0-2 /HPF (0-4)
[2020-08-06 11:17] VITALS: PULSE 82; PULSE 88; PULSE 89; O2SAT 81; O2SAT 89; O2SAT 95
--- NOTE | 2020-08-06 11:28 | PM.DS ---
DS: Providers Provider Date of Service: 08/06/20 Date of admission: 07/30/20 10:10 Primary care physician: Unknown Physician Consults: 08/03/20 10:51 Consult to Pulmonology Routine Consulting Provider: [facility] Reason for consultation: BiPAP dependnece/needs outpt pulmoinologist DS: Diagnosis Discharge Diagnosis (1) Morbid obesity: Status: Acute (2) Multifocal pneumonia: Status: Acute (3) Obesity hypoventilation syndrome: Status: Acute (4) Obstructive sleep apnea: Status: Acute DS: Medications Discharge Medications Home Medications: Home Medications Medication Instructions Recorded Confirmed Dexilant 60 mg PO DAILY 01/30/20 07/30/20 diphenoxylate-atropine 1 tab PO TID PRN 01/30/20 07/30/20 hydrochlorothiazide 1 tab PO DAILY 01/30/20 07/30/20 levothyroxine 1 tab PO DAILY 01/30/20 07/30/20 pregabalin 1 cap PO BID 01/30/20 07/30/20 simvastatin 5 mg PO BEDTIME 01/30/20 07/30/20 atorvastatin 1 tab PO DAILY 07/30/20 07/30/20 carvedilol 1 tab PO BID 07/30/20 07/30/20 ketoconazole 1 appl TOPICAL BID 07/30/20 07/30/20 losartan 1 tab PO DAILY 07/30/20 07/30/20 triamcinolone acetonide [Nasal 2 spray INTRANASAL DAILY 07/30/20 07/30/20 Allergy] Previous Rx's Medication Instructions Recorded amoxicillin-pot clavulanate 875 mg PO BID #6 tab 08/06/20 fluticasone furoate-vilanterol 1 ea INHALATION RDAILY #60 ea 08/06/20 [Breo Ellipta] DS: Summary Hospital Course Hospital Course: History of presenting illness 69-year-old female morbidly obese BMI 62, MISSY uses biPAP at home, HTN, , hypothyroidism, GERD, likly hypoventilation syndrome. She presented with an episode of nause and vomitting without other abdominal complaint . She was noted to be in acute hyhpoxic respiratory failure, and ABG showed CO2 retention. She was tried on BiPAP in ED and remained very somnolent and therefore requested an ICU evaluation. Past medical history Asthma Diarrhea GERD (gastroesophageal reflux disease) Hypercholesteremia Hypertension Neuropathy Seasonal allergies Thyroid activity decreased PSHX H/O: hysterectomy History of cholecystectomy Hospital course 69yo F with morbid obesity, OHS, MISSY on home BiPAP, HTN, hypothyroidism, GERD admitted to ICU for acute/chronic hypoxic/hypercarbic respiratory failure with multifocal PNA patient treated with BiPAP and IV antibiotics her blood cultures came back negative, respiratory pathogen panel and COVID THEO came back negative patient responded well to above treatment was followed closely by pulmonology patient is now being discharged home on Augmentin for 3 more days to finish a total 10 day course of antibiotic she has also been started on Breo, prior to discharge patient was noted to have significant change in her behavior, therefore VBGs were obtained that showed that patient has significant hypoxia therefore a home O2 eval was done and patient qualifies for oxygen 3 L continuously, after using oxygen patient is back to her baseline, there was a concern the patient's CPAP machine is not working that was checked and it has been working fine patient has been given a full face mask since her nasal mask with CPAP machine was not adequate for her, explained use of CPAP and oxygen with patient as well as boyfriend whom patient lives with, she is being discharged with VNA services and will resume persistent [facility]. Discharge diagnosis Acute on chronic hypoxic hypercarbic respiratory failure due to multifocal pneumonia and obesity hypoventilation syndrome Hypertension Hyperlipidemia Hypothyroidism Neuropathy Morbid obesity contributing to obesity hypoventilation syndrome and other medical issues Time Spent with Patient Time attestation: Total time spent providing and/or coordinating discharge services: Discharge coordination time: Greater than 30 minutes Physical Exam Vital Signs: Vital Signs: Last Vital Signs Temp 98.3 F 08/06/20 07:46 Pulse 79 08/06/20 07:46 Resp 20 08/06/20 07:46 BP 161/74 H 08/06/20 07:46 Pulse Ox 89 L 08/06/20 07:46 Oxygen Flow Rate 15 07/30/20 01:35 Body Mass Index 62.1 General no acute distress calm with appropriate behavior. Neck no JVD. CVS regular rate rhythm, Respiratory lungs clear to auscultation, diminished breath sounds bilaterally, no respiratory distress, no wheeze, no rhonchi. Gastrointestinal abdomen soft, nontender, bowel sounds audible, no guarding , no rigidity. Extremities no clubbing, cyanosis or edema. Neuro nonfocal Skin no rash DS: Data Data Completed and Pending Labs on day of discharge: Laboratory Results - last 24 hr 08/06/20 08/06/20 09:39 09:48 VBG pH 7.47 H VBG pCO2 40 VBG pO2 47 VBG HCO3 30 H VBG O2 Saturation 78.0 VBG Base Excess 6.0 Urine Color YELLOW Urine Appearance CLEAR Urine pH 7.0 Ur Specific [place] 1.020 Urine Protein 2+ H Urine Glucose (UA) NEG Urine Ketones NEG Urine Blood 2+ H Urine Nitrite NEG Ur Leukocyte Esterase NEG Urine RBC 10-14 H Urine WBC 0-2 Ur Squamous Epith Cells 3+ Urine Bacteria NONE Discharge Plan Discharge Patient Disposition: Home Health Service Discharge Diagnosis: Acute hypoxic and hypercarbic respiratory failure Referrals: Tila MONTAÑO [Outside] - 1 Week Physician,Unknown [Primary Care Provider] - 1 Week Discharge Medications: New Breo Ellipta 100-25 mcg/dose Blister With Device 1 ea inhalation RDAILY Qty: 60 RF: 0 amoxicillin-pot clavulanate 875-125 mg Tablet 875 mg PO BID Qty: 6 RF: 0 Continued simvastatin 5 mg tablet 5 mg PO BEDTIME RF: 0 levothyroxine 50 mcg tablet 1 tab PO DAILY RF: 0 hydrochlorothiazide 25 mg tablet 1 tab PO DAILY RF: 0 pregabalin 150 mg capsule 1 cap PO BID RF: 0 Dexilant 60 mg capsule,biphase delayed releas 60 mg PO DAILY RF: 0 diphenoxylate-atropine 2.5-0.025 mg Tablet 1 tab PO TID PRN (Reason: Diarrhea) RF: 0 carvedilol 6.25 mg tablet 1 tab PO BID RF: 0 atorvastatin 10 mg tablet 1 tab PO DAILY RF: 0 triamcinolone acetonide [Nasal Allergy] 55 mcg aerosol,spray 2 spray intranasal DAILY RF: 0 losartan 25 mg tablet 1 tab PO DAILY RF: 0 ketoconazole 2 % cream 1 appl topical BID RF: 0 Discharge Orders: Discharge Order (Routine); Ordered 08/06/20 Ordered By: Dragan Abarca Diet: low fat, low cholesterol Activity on Discharge: As tolerated Stand Alone Forms: Patient Portal Discharge page Care Plan Goals: Follow low-calorie diet, continue oxygen as prescribed take all home medications as before and use antibiotics for 3 more days Health Concerns: You have been diagnosed to have obstructive sleep apnea and pneumonia causing acute hypoxic and hypercarbic respiratory failure You have been prescribed 3 liter of oxygen to be used 24/, continue CPAP at night Plan of Treatment: Follow-up with primary care physician and with Dr. Riley from pulmonology in next 7-10 days Assessment: See discharge summary
--- NOTE | 2020-08-06 11:51 | MHC.CM.PN ---
IMM 08/06/20 Female 69 DX ACUTE RESPIRATORY FAILURE, is discharged to home with new O2. [facility] will provide O2. [facility] has been notified of discharge. The Pts significant other is providing transportation.
== END 2020-08-06 11:42 | disposition home health service (06) | DRG 193 ==
LOC: HO.ED 06:21 → HO.EDOVER 10:20 → HO.ICU 19:24 → HO.IMC 07-31 15:19
PROVIDERS: Family Medicine; Internal Medicine Pulmonary Disease; Admitting Provider Internal Medicine; Emergency Provider Student in an Organized Health Care Education/Training Program; PCP Internal Medicine; Visit Provider Hospitalist
DX: J18.9 Pneumonia, unspecified organism (principal); J96.21 Acute and chronic respiratory failure with hypoxia; J96.22 Acute and chronic respiratory failure with hypercapnia; E66.2 Morbid (severe) obesity with alveolar hypoventilation; Z68.44 Body mass index [BMI] 60.0-69.9, adult; E03.9 Hypothyroidism, unspecified; Z20.822 Contact with and (suspected) exposure to COVID-19; G62.9 Polyneuropathy, unspecified; Z88.6 Allergy status to analgesic agent; E78.5 Hyperlipidemia, unspecified; Z79.51 Long term (current) use of inhaled steroids; Z79.890 Hormone replacement therapy; Z79.899 Other long term (current) drug therapy
CPT/HCPCS: 0241U; 36415; 71045; 71275; 80048; 80053; 81001; 81003; 82040; 82947; 83605; 83690; 83735; 83880; 84100; 84145; 85025; 87040; 87633; 93005; 93306; 94640; 94660; 96365; 96375; 97116; 97162; 99285; C1758; J1650; J1940; J2543; J2930; P9047; Q9967

== ENCOUNTER → 2020-08-12 14:17 | Outpatient (BNVA) | payer MEDICARE, MEDICAID, SELFPAY | PROVIDERS: PCP Internal Medicine; Visit Provider Internal Medicine | DX: E66.01 Morbid (severe) obesity due to excess calories (principal); G47.33 Obstructive sleep apnea (adult) (pediatric); J96.21 Acute and chronic respiratory failure with hypoxia; J96.22 Acute and chronic respiratory failure with hypercapnia; J18.9 Pneumonia, unspecified organism | CPT/HCPCS: 99212 ==

== ENCOUNTER → 2020-09-16 14:51 | Outpatient (BNVA) | payer MEDICARE, MEDICAID, SELFPAY | PROVIDERS: PCP Internal Medicine; Visit Provider Internal Medicine | DX: E66.2 Morbid (severe) obesity with alveolar hypoventilation (principal); G47.33 Obstructive sleep apnea (adult) (pediatric); J84.9 Interstitial pulmonary disease, unspecified | CPT/HCPCS: 99212 ==

== ENCOUNTER 2020-09-24 09:38 | Inpatient (IN) | payer MEDICARE, MEDICAID, SELFPAY ==
[2020-09-24] VITALS (30 sets, daily range): BP systolic 86–132; BP diastolic 38–69; PULSE 62–98; RESP 12–18; TEMP 36.1–37.5; O2SAT 89–100; BMI 52.2; BMI 47.7
--- NOTE | ~2020-09-24 | XR_ITS ---
EXAMINATION: XR CHEST CLINICAL INFORMATION: Line insertion COMPARISON: 09/24/2020 TECHNIQUE: Frontal view of the chest was obtained. FINDINGS: Right IJ approach central venous catheter tip projects over the SVC. The endotracheal tube tip is approximately 6 cm from the pedro. Enteric tube tip terminates below the diaphragm out of the field of view of the current exam. Low lung volumes. Stable cardiomediastinal silhouette. Bilateral patchy infiltrates. XR/XR chest 1V IMPRESSION: Right IJ approach central venous catheter tip at the SVC. No pneumothorax. Bilateral infiltrates are overall stable.
--- NOTE | ~2020-09-24 | XR_ITS ---
EXAMINATION: XR CHEST CLINICAL INFORMATION: Unconscious, aspirated COMPARISON: None TECHNIQUE: Frontal view of the chest was obtained. FINDINGS: The lungs are well-expanded with patchy opacity remain both lung bases suggestive of bilateral pleural effusions and underlying infiltrate/atelectasis. There is patchy opacity in both upper lobes as well. Heart size enlarged. Pulmonary vascularity is normal. There is a new endotracheal tube with its tip 4.0 cm above the pedro. No gross bony abnormality seen. XR/XR chest 1V IMPRESSION: Bilateral lower lobe infiltrate/atelectasis with underlying small pleural effusions.
--- NOTE | ~2020-09-24 | XR_ITS ---
EXAMINATION: XR CHEST CLINICAL INFORMATION: Replacement COMPARISON: CT chest 09/24/2020. TECHNIQUE: Frontal view of the chest was obtained. FINDINGS: There is diffuse bibasilar haziness from combination of infiltrates and effusion. The upper lungs are clear. Tip of endotracheal tube is 4.2 cm above the pedro. New enteric tube tip is below the diaphragm in the stomach. There is mild spondylosis dorsal spine. No lytic process. XR/XR chest 1V IMPRESSION: New enteric tube tip is below diaphragm the stomach. Tip of endotracheal tube is 4.15 cm above the pedro. There is bilateral lower lobe consolidations and underlying effusion.
--- NOTE | ~2020-09-24 | CT_ITS ---
EXAMINATION: CT BRAIN WITHOUT CONTRAST. CT CHEST WITHOUT CONTRAST. CLINICAL INFORMATION: Aspiration. Follow-up unconscious. COMPARISON: None TECHNIQUE: 5 mm thin axial and reformatted 2 mm thin sagittal and coronal images of brain were obtained. Subsequently axial 5 mm thin and reformatted 3 mm thin sagittal and coronal images of chest were obtained. DL [id number] FINDINGS: Brain: There is no acute intra-axial, extra-axial bleed, masses, collection or midline shift. There is no acute infarction in evolution. The lateral ventricles are symmetrical in size and configuration without enlargement. The merino to white matter difference is maintained normal. Bone windows reveal no calvarial abnormality. Bilateral paranasal sinuses and mastoid air cells are well-aerated. CHEST: The lungs are expanded with bilateral patchy airspace opacities in both upper lobes, lower lobes, right middle lobe consistent with infiltrates. There is a endotracheal tube with its tip 2.5 cm above the pedro. Heart size and the great vessels are normal caliber. Small shotty mediastinal lymph nodes visualized. No pericardial effusion seen. There is small bilateral dependent pleural effusions. The axilla and the chest wall appears unremarkable. Bone windows reveal no thoracic cage abnormality. There is exaggerated thoracic kyphosis. No lytic or sclerotic process seen. Imaging through the upper abdomen reveals visualized liver, spleen, pancreas and bilateral adrenal glands are unremarkable. CT/CT chest wo con IMPRESSION: Diffuse bilateral multilobulated infiltrates with small bilateral pleural effusions. There are reactive mediastinal lymph nodes. The endotracheal tube tip is in good position.
--- NOTE | ~2020-09-24 | CT_ITS ---
EXAMINATION: CT BRAIN WITHOUT CONTRAST. CT CHEST WITHOUT CONTRAST. CLINICAL INFORMATION: Aspiration. Follow-up unconscious. COMPARISON: None TECHNIQUE: 5 mm thin axial and reformatted 2 mm thin sagittal and coronal images of brain were obtained. Subsequently axial 5 mm thin and reformatted 3 mm thin sagittal and coronal images of chest were obtained. DL [id number] FINDINGS: Brain: There is no acute intra-axial, extra-axial bleed, masses, collection or midline shift. There is no acute infarction in evolution. The lateral ventricles are symmetrical in size and configuration without enlargement. The merino to white matter difference is maintained normal. Bone windows reveal no calvarial abnormality. Bilateral paranasal sinuses and mastoid air cells are well-aerated. CHEST: The lungs are expanded with bilateral patchy airspace opacities in both upper lobes, lower lobes, right middle lobe consistent with infiltrates. There is a endotracheal tube with its tip 2.5 cm above the pedro. Heart size and the great vessels are normal caliber. Small shotty mediastinal lymph nodes visualized. No pericardial effusion seen. There is small bilateral dependent pleural effusions. The axilla and the chest wall appears unremarkable. Bone windows reveal no thoracic cage abnormality. There is exaggerated thoracic kyphosis. No lytic or sclerotic process seen. Imaging through the upper abdomen reveals visualized liver, spleen, pancreas and bilateral adrenal glands are unremarkable. CT/CT head/brain wo con IMPRESSION: Diffuse bilateral multilobulated infiltrates with small bilateral pleural effusions. There are reactive mediastinal lymph nodes. The endotracheal tube tip is in good position.
--- NOTE | ~2020-09-24 | XR_ITS ---
EXAMINATION: XR CHEST CLINICAL INFORMATION: Hypoxia. COMPARISON: 09/25/2020 TECHNIQUE: Frontal view of the chest was obtained. FINDINGS: Right IJ s venous catheter terminates in the proximal SVC intravenous and has been slightly retracted as compared to prior. ET tube has been removed. Sternal wires overlie the chest. Again seen are patchy multifocal bilateral pulmonary opacities, not appreciably changed allowing for differences in projection. Cardiac meniscal contours are unchanged. No appreciable effusion. No pneumothorax. No acute osseous findings. XR/XR chest 1V IMPRESSION: 1. No significant change in the patchy multifocal bilateral airspace disease. 2. Slight retraction of the right IJ central venous catheter, terminating near the cephalad margin of the SVC.
--- NOTE | 2020-09-24 09:49 | ECG_ITS ---
Test Reason : RESP DISTRESS Blood Pressure : / mmHG Vent. Rate : 096 BPM Atrial Rate : 096 BPM P-R Int : 176 ms QRS Dur : 130 ms QT Int : 428 ms P-R-T Axes : 047 -46 083 degrees QTc Int : 540 ms Normal sinus rhythm Left axis deviation Left ventricular hypertrophy with QRS widening Abnormal ECG When compared with ECG of 30-JUL-2020 02:26, No significant changes seen Referred By: Tiffani Beaver Electronically Signed By:TISH LEMUS
[2020-09-24] MEDS: Rocuronium Bromide 50 MG/5 ML VIAL 100 MG IVPUSH (09:55)
[2020-09-24] MEDS: 0.9 % Sodium Chloride 1,000 ML 999 ML IVCONT ×3 (09:55→10:00)
[2020-09-24] MEDS: Etomidate 20 MG/10 ML VIAL IVPUSH (09:55)
--- NOTE | 2020-09-24 09:56 | ED_ITS ---
HPI - General Adult General Chief complaint: Dyspnea Stated complaint: sob Time Seen by Provider: 09/24/20 09:49 Source: EMS Mode of arrival: EMS Limitations: altered mental status History of Present Illness HPI narrative: Patient comes to the emergency room via EMS. According to the patient's , she reported to the EMS crew that the patient was last seen normal at 07:30. Patient went back to sleep , and an hour prior to the patient's arrival, the patient's tried waking her up, she did not respon d. EMS was called, on their arrival, patient's oxygen saturation in the low 70s. Patient was put on non-rebreather at 15 L, maximum O2 saturation was 82% on 15 L. On arrival to the emergency room, patient is unresponsive, copious amount of vomit pouring from her mouth, patient was intubated immediately. Related Data Home Medications Medication Instructions Recorded Confirmed Dexilant 60 mg PO DAILY 01/30/20 07/30/20 diphenoxylate-atropine 1 tab PO TID PRN 01/30/20 07/30/20 hydrochlorothiazide 1 tab PO DAILY 01/30/20 07/30/20 levothyroxine 1 tab PO DAILY 01/30/20 07/30/20 pregabalin 1 cap PO BID 01/30/20 07/30/20 atorvastatin 1 tab PO DAILY 07/30/20 07/30/20 carvedilol 1 tab PO BID 07/30/20 07/30/20 ketoconazole 1 appl TOPICAL BID 07/30/20 07/30/20 losartan 1 tab PO DAILY 07/30/20 07/30/20 triamcinolone acetonide [Nasal 2 spray INTRANASAL DAILY 07/30/20 07/30/20 Allergy] cetirizine 10 mg tablet 10 mg PO DAILY 09/16/20 montelukast 10 mg tablet 10 mg PO BEDTIME 09/16/20 Previous Rx's Medication Instructions Recorded fluticasone furoate-vilanterol 1 ea INHALATION RDAILY #60 ea 08/06/20 [Breo Ellipta] Allergies Allergy/AdvReac Type Severity Reaction Status Date / Time celecoxib [From CELEBREX] Allergy Unknown RASH Verified 08/12/20 14:26 Latex, Natural Rubber Allergy Rash Verified 08/12/20 14:26 ibuprofen [IBUPROFEN] AdvReac Intermediate RASH Verified 08/12/20 14:26 Review of Systems Review of Systems: Yes unobtainable due to endotracheal tube and Unobtainable due to mental condition [facility] Past Medical History Medical History Asthma Diarrhea GERD (gastroesophageal reflux disease) Hypercholesteremia Hypertension Interstitial lung disease Neuropathy Seasonal allergies Thyroid activity decreased Surgical History H/O: hysterectomy History of cholecystectomy Social History Social History Household Members: Other 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 ENT: Copious amount of vomit in the oropharynx prior to intubation Neck: Normal inspection. Neck supple. No lymph nodes noted. No crepitus CVS: Normal heart rate and rhythm. Pulses normal. Normal S1 and S2 Respiratory: Patient being ventilated with BVM, oxygen 82% on 15 L Abdomen: Soft , mildly distended Skin: Skin warm and dry. Extremities: No lower extremity edema. Neuro: Pupils PERRL, patient is unresponsive Course Course Course Narrative: On arrival, patient was intubated. After the intubation meds were given, patient's blood pressure dropped to the mid 80s, this drop in blood pressure is likely due to the medications. Patient improved with 3 L normal saline, current blood pressure 122 systolic. Patient is developing pneumonia, likely secondary from aspiration. Patient was empirically treated with IV antibiotics. Patient currently getting a head CT and a dry chest CT. COVID and full respiratory panel pending. I discussed the patient with our special programs director Dr. Baker, patient is being admitted to intensive care unit Procedures Intubation sedative: Etomidate paralytic: Rocuronium Laryngoscope: other (GlideScope) ET Tube Size: 7.5 ET Tube Uncuffed: No Tube Secured Depth (cm): 23 Tube Secured Location: lips Tube Placement Confirmation: visualized tube passing through cords, equal breath sounds bilaterally, no breath sounds over epigastrium and confirmation by capnometry Patient Tolerated Procedure: well Intubation Complications: none Medical Decision Making Lab Data Result diagrams: 09/24/20 10:16 09/24/20 10:16 Labs: Lab Results 09/24/20 09/24/20 09/24/20 Range/Units 10:16 10:16 10:16 WBC 5.2 (4.8-10.8) X10*3/uL RBC 3.96 L (4.20-5.50) X10*6/uL Hgb 11.3 L (12.0-16.0) g/dl Hct 36.5 L (37-47) % MCV 92.2 (80-98) fL MCH 28.5 (27.0-33.0) pg MCHC 31.0 (31.0-35.0) g/dl RDW 14.4 (11.0-16.0) % Plt Count 223 (160-400) X10*3/uL MPV 10.6 (9.4-12.3) fL Immature Gran % (Auto) 0.2 (0.0-0.4) % Neut % (Auto) 86.3 H (45-73) % Lymph % (Auto) 9.4 L (20-40) % [place] % (Auto) 3.3 (2-11) % Eos % (Auto) 0.6 (0-4) % Baso % (Auto) 0.2 (0-2) % Lymph # (Auto) 0.5 L (1.2-4.9) X10*3/uL [place] # (Auto) 0.2 (0.1-1.2) X10*3/uL Eos # (Auto) 0.0 (0.0-0.4) X10*3/uL Baso # (Auto) 0.0 (0.0-0.2) X10*3/uL Abs Immat Gran (auto) 0.01 (0.00-0.03) X10*3/uL Absolute Neuts (auto) 4.5 (2.0-8.3) X10*3/uL Absolute Nucleated RBC 0.000 (0.0-0.012) X10*3/uL Nucleated RBC % (auto) 0.0 (0.0-0.2) /100WBC PT 12.4 (10.8-13.0) SEC INR 1.0 (0.9-1.1) VBG pH (7.32-7.43) VBG pCO2 mmHg VBG pO2 mmHg VBG HCO3 (22-26) mmol/L VBG O2 Saturation % VBG Base Excess mmol/L Sodium 142 (135-145) mmol/L Potassium 4.8 D (3.3-5.1) mmol/L Chloride 102 (96-108) mmol/L Carbon Dioxide 33 H (22-29) mmol/L Anion Gap 12 (12-20) BUN 26 H (9-16) mg/dL Creatinine 1.08 (0.5-1.4) mg/dL Estim Creat Clear Calc 79.8 Estimated GFR 50 Random Glucose 132 H (60-115) mg/dL Lactic Acid (0.5-2.0) mmol/L Calcium 8.0 L (8.4-10.2) mg/dL Total Bilirubin 0.8 (0.0-1.0) mg/dL Direct Bilirubin 0.3 (0.0-0.5) mg/dL AST 14 (5-31) U/L ALT 6 (0-31) U/L Alkaline Phosphatase 87 (39-117) U/L Troponin I High Sens (<3.5-17.0) ng/L B-Natriuretic Peptide (<100) pg/mL Total Protein 6.2 L (6.5-8.0) g/dL Albumin 3.4 L (3.5-5.0) g/dL Lipase (8-78) U/L TSH (0.32-4.0) uIU/mL Urine Color Urine Appearance Urine pH (5.0-8.0) Ur Specific [place] (1.005-1.025) Urine Protein (NEG-TRACE) MG/DL Urine Glucose (UA) (NEG) MG/DL Urine Ketones (NEG) MG/DL Urine Blood (NEG) Urine Nitrite (NEG) Ur Leukocyte Esterase (NEG) Urine RBC (0) /HPF Urine WBC (0-4) /HPF Urine WBC Clumps Ur Squamous Epith Cells /LPF Urine Bacteria /LPF Urine Opiates Screen (Not Detect) Ur Barbiturates Screen (Not Detect) Ur Phencyclidine Scrn (Not Detect) Ur Amphetamines Screen (Not Detect) U Benzodiazepines Scrn (Not Detect) Urine Cocaine Screen (Not Detect) U Marijuana (THC) Screen (Not Detect) Ethyl Alcohol mg/dL 09/24/20 09/24/20 09/24/20 Range/Units 10:16 10:16 10:16 WBC (4.8-10.8) X10*3/uL RBC (4.20-5.50) X10*6/uL Hgb (12.0-16.0) g/dl Hct (37-47) % MCV (80-98) fL MCH (27.0-33.0) pg MCHC (31.0-35.0) g/dl RDW (11.0-16.0) % Plt Count (160-400) X10*3/uL MPV (9.4-12.3) fL Immature Gran % (Auto) (0.0-0.4) % Neut % (Auto) (45-73) % Lymph % (Auto) (20-40) % [place] % (Auto) (2-11) % Eos % (Auto) (0-4) % Baso % (Auto) (0-2) % Lymph # (Auto) (1.2-4.9) X10*3/uL [place] # (Auto) (0.1-1.2) X10*3/uL Eos # (Auto) (0.0-0.4) X10*3/uL Baso # (Auto) (0.0-0.2) X10*3/uL Abs Immat Gran (auto) (0.00-0.03) X10*3/uL Absolute Neuts (auto) (2.0-8.3) X10*3/uL Absolute Nucleated RBC (0.0-0.012) X10*3/uL Nucleated RBC % (auto) (0.0-0.2) /100WBC PT (10.8-13.0) SEC INR (0.9-1.1) VBG pH (7.32-7.43) VBG pCO2 mmHg VBG pO2 mmHg VBG HCO3 (22-26) mmol/L VBG O2 Saturation % VBG Base Excess mmol/L Sodium (135-145) mmol/L Potassium (3.3-5.1) mmol/L Chloride (96-108) mmol/L Carbon Dioxide (22-29) mmol/L Anion Gap (12-20) BUN (9-16) mg/dL Creatinine (0.5-1.4) mg/dL Estim Creat Clear Calc Estimated GFR Random Glucose (60-115) mg/dL Lactic Acid 0.9 (0.5-2.0) mmol/L Calcium (8.4-10.2) mg/dL Total Bilirubin (0.0-1.0) mg/dL Direct Bilirubin (0.0-0.5) mg/dL AST (5-31) U/L ALT (0-31) U/L Alkaline Phosphatase (39-117) U/L Troponin I High Sens 4.8 (<3.5-17.0) ng/L B-Natriuretic Peptide 96 (<100) pg/mL Total Protein (6.5-8.0) g/dL Albumin (3.5-5.0) g/dL Lipase 28 (8-78) U/L TSH 1.06 (0.32-4.0) uIU/mL Urine Color Urine Appearance Urine pH (5.0-8.0) Ur Specific [place] (1.005-1.025) Urine Protein (NEG-TRACE) MG/DL Urine Glucose (UA) (NEG) MG/DL Urine Ketones (NEG) MG/DL Urine Blood (NEG) Urine Nitrite (NEG) Ur Leukocyte Esterase (NEG) Urine RBC (0) /HPF Urine WBC (0-4) /HPF Urine WBC Clumps Ur Squamous Epith Cells /LPF Urine Bacteria /LPF Urine Opiates Screen (Not Detect) Ur Barbiturates Screen (Not Detect) Ur Phencyclidine Scrn (Not Detect) Ur Amphetamines Screen (Not Detect) U Benzodiazepines Scrn (Not Detect) Urine Cocaine Screen (Not Detect) U Marijuana (THC) Screen (Not Detect) Ethyl Alcohol mg/dL 09/24/20 09/24/20 09/24/20 Range/Units 10:17 10:17 10:17 WBC (4.8-10.8) X10*3/uL RBC (4.20-5.50) X10*6/uL Hgb (12.0-16.0) g/dl Hct (37-47) % MCV (80-98) fL MCH (27.0-33.0) pg MCHC (31.0-35.0) g/dl RDW (11.0-16.0) % Plt Count (160-400) X10*3/uL MPV (9.4-12.3) fL Immature Gran % (Auto) (0.0-0.4) % Neut % (Auto) (45-73) % Lymph % (Auto) (20-40) % [place] % (Auto) (2-11) % Eos % (Auto) (0-4) % Baso % (Auto) (0-2) % Lymph # (Auto) (1.2-4.9) X10*3/uL [place] # (Auto) (0.1-1.2) X10*3/uL Eos # (Auto) (0.0-0.4) X10*3/uL Baso # (Auto) (0.0-0.2) X10*3/uL Abs Immat Gran (auto) (0.00-0.03) X10*3/uL Absolute Neuts (auto) (2.0-8.3) X10*3/uL Absolute Nucleated RBC (0.0-0.012) X10*3/uL Nucleated RBC % (auto) (0.0-0.2) /100WBC PT (10.8-13.0) SEC INR (0.9-1.1) VBG pH (7.32-7.43) VBG pCO2 mmHg VBG pO2 mmHg VBG HCO3 (22-26) mmol/L VBG O2 Saturation % VBG Base Excess mmol/L Sodium (135-145) mmol/L Potassium (3.3-5.1) mmol/L Chloride (96-108) mmol/L Carbon Dioxide (22-29) mmol/L Anion Gap (12-20) BUN (9-16) mg/dL Creatinine (0.5-1.4) mg/dL Estim Creat Clear Calc Estimated GFR Random Glucose (60-115) mg/dL Lactic Acid (0.5-2.0) mmol/L Calcium (8.4-10.2) mg/dL Total Bilirubin (0.0-1.0) mg/dL Direct Bilirubin (0.0-0.5) mg/dL AST (5-31) U/L ALT (0-31) U/L Alkaline Phosphatase (39-117) U/L Troponin I High Sens (<3.5-17.0) ng/L B-Natriuretic Peptide (<100) pg/mL Total Protein (6.5-8.0) g/dL Albumin (3.5-5.0) g/dL Lipase (8-78) U/L TSH (0.32-4.0) uIU/mL Urine Color YELLOW Urine Appearance CLEAR Urine pH 5.5 (5.0-8.0) Ur Specific [place] >= 1.030 H (1.005-1.025) Urine Protein 2+ H (NEG-TRACE) MG/DL Urine Glucose (UA) NEG (NEG) MG/DL Urine Ketones NEG (NEG) MG/DL Urine Blood 1+ H (NEG) Urine Nitrite NEG (NEG) Ur Leukocyte Esterase NEG (NEG) Urine RBC 0 (0) /HPF Urine WBC 10-14 H (0-4) /HPF Urine WBC Clumps NOTED Ur Squamous Epith Cells NONE /LPF Urine Bacteria TRACE /LPF Urine Opiates Screen Not Detected (Not Detect) Ur Barbiturates Screen Not Detected (Not Detect) Ur Phencyclidine Scrn Not Detected (Not Detect) Ur Amphetamines Screen Not Detected (Not Detect) U Benzodiazepines Scrn Not Detected (Not Detect) Urine Cocaine Screen Not Detected (Not Detect) U Marijuana (THC) Screen Not Detected (Not Detect) Ethyl Alcohol < 10 mg/dL 09/24/20 Range/Units 10:40 WBC (4.8-10.8) X10*3/uL RBC (4.20-5.50) X10*6/uL Hgb (12.0-16.0) g/dl Hct (37-47) % MCV (80-98) fL MCH (27.0-33.0) pg MCHC (31.0-35.0) g/dl RDW (11.0-16.0) % Plt Count (160-400) X10*3/uL MPV (9.4-12.3) fL Immature Gran % (Auto) (0.0-0.4) % Neut % (Auto) (45-73) % Lymph % (Auto) (20-40) % [place] % (Auto) (2-11) % Eos % (Auto) (0-4) % Baso % (Auto) (0-2) % Lymph # (Auto) (1.2-4.9) X10*3/uL [place] # (Auto) (0.1-1.2) X10*3/uL Eos # (Auto) (0.0-0.4) X10*3/uL Baso # (Auto) (0.0-0.2) X10*3/uL Abs Immat Gran (auto) (0.00-0.03) X10*3/uL Absolute Neuts (auto) (2.0-8.3) X10*3/uL Absolute Nucleated RBC (0.0-0.012) X10*3/uL Nucleated RBC % (auto) (0.0-0.2) /100WBC PT (10.8-13.0) SEC INR (0.9-1.1) VBG pH 7.24 L (7.32-7.43) VBG pCO2 81 mmHg VBG pO2 68 mmHg VBG HCO3 35 H (22-26) mmol/L VBG O2 Saturation 91.0 % VBG Base Excess 5.9 mmol/L Sodium (135-145) mmol/L Potassium (3.3-5.1) mmol/L Chloride (96-108) mmol/L Carbon Dioxide (22-29) mmol/L Anion Gap (12-20) BUN (9-16) mg/dL Creatinine (0.5-1.4) mg/dL Estim Creat Clear Calc Estimated GFR Random Glucose (60-115) mg/dL Lactic Acid (0.5-2.0) mmol/L Calcium (8.4-10.2) mg/dL Total Bilirubin (0.0-1.0) mg/dL Direct Bilirubin (0.0-0.5) mg/dL AST (5-31) U/L ALT (0-31) U/L Alkaline Phosphatase (39-117) U/L Troponin I High Sens (<3.5-17.0) ng/L B-Natriuretic Peptide (<100) pg/mL Total Protein (6.5-8.0) g/dL Albumin (3.5-5.0) g/dL Lipase (8-78) U/L TSH (0.32-4.0) uIU/mL Urine Color Urine Appearance Urine pH (5.0-8.0) Ur Specific [place] (1.005-1.025) Urine Protein (NEG-TRACE) MG/DL Urine Glucose (UA) (NEG) MG/DL Urine Ketones (NEG) MG/DL Urine Blood (NEG) Urine Nitrite (NEG) Ur Leukocyte Esterase (NEG) Urine RBC (0) /HPF Urine WBC (0-4) /HPF Urine WBC Clumps Ur Squamous Epith Cells /LPF Urine Bacteria /LPF Urine Opiates Screen (Not Detect) Ur Barbiturates Screen (Not Detect) Ur Phencyclidine Scrn (Not Detect) Ur Amphetamines Screen (Not Detect) U Benzodiazepines Scrn (Not Detect) Urine Cocaine Screen (Not Detect) U Marijuana (THC) Screen (Not Detect) Ethyl Alcohol mg/dL ECG Data Attestation: I personally reviewed and interpreted this ECG as follows: (Heart rate 96, sinus rhythm, no ST segment depression or elevation, nonspecific T-wave inversion in aVL, QTC 540) Critical Care Time Critical Care Time Total Critical Care Time: 90 Discharge Plan Discharge Clinical Impression: Acute hypercapnic respiratory failure, Aspiration pneumonia Patient Disposition: Admitted As Inpatient Prescriptions: No Action levothyroxine 50 mcg tablet 1 tab PO DAILY RF: 0 hydrochlorothiazide 25 mg tablet 1 tab PO DAILY RF: 0 pregabalin 150 mg capsule 1 cap PO BID RF: 0 Dexilant 60 mg capsule,biphase delayed releas 60 mg PO DAILY RF: 0 diphenoxylate-atropine 2.5-0.025 mg Tablet 1 tab PO TID PRN (Reason: Diarrhea) RF: 0 carvedilol 6.25 mg tablet 1 tab PO BID RF: 0 atorvastatin 10 mg tablet 1 tab PO DAILY RF: 0 triamcinolone acetonide [Nasal Allergy] 55 mcg aerosol,spray 2 spray intranasal DAILY RF: 0 losartan 25 mg tablet 1 tab PO DAILY RF: 0 ketoconazole 2 % cream 1 appl topical BID RF: 0 Breo Ellipta 100-25 mcg/dose Blister With Device 1 ea inhalation RDAILY Qty: 60 RF: 0 montelukast 10 mg tablet 10 mg PO BEDTIME RF: 0 cetirizine 10 mg tablet 10 mg PO DAILY RF: 0
[2020-09-24] MEDS: fentaNYL citrate/NS 1,000 MCG/100 ML PLAST..BAG 10 MCG IVCONT (09:58)
--- NOTE | 2020-09-24 09:58 | PC.NURSE ---
per dr holman, start fentynal drip at 100 mcg
[2020-09-24 10:23] LABS: MANUAL DIFF FLAG NO
[2020-09-24 10:26] LABS: Basophils Percent Auto 0.2 % (0-2); Eosinophils Percent Auto 0.6 % (0-4); Hematocrit 36.5 % (37-47); Hemoglobin 11.3 g/dl (12.0-16.0); Imm Gran Abs Auto 0.01 X10*3/uL (0.00-0.03); Imm Gran Pct Auto 0.2 % (0.0-0.4); Lymphocytes Absolute Auto 0.5 X10*3/uL (1.2-4.9); Lymphocytes Percent Auto 9.4 % (20-40); Mean Corpuscular Hemoglobin 28.5 pg (27.0-33.0); Mean Corpuscular Volume 92.2 fL (80-98); Mean Platelet Volume 10.6 fL (9.4-12.3); Monocytes Absolute Auto 0.2 X10*3/uL (0.1-1.2); Monocytes Percent Auto 3.3 % (2-11); Neutrophils Absolute Auto 4.5 X10*3/uL (2.0-8.3); Neutrophils Percent Auto 86.3 % (45-73); Platelet Count 223 X10*3/uL (160-400); Red Blood Count 3.96 X10*6/uL (4.20-5.50); Red Cell Distribution Width 14.4 % (11.0-16.0); White Blood Count 5.2 X10*3/uL (4.8-10.8)
[2020-09-24 10:30] LABS: Glucose Urine UA NEG (NEG); Leukocyte Esterase Urine NEG (NEG); Nitrite Urine NEG (NEG); PH 5.5 (5.0-8.0); Specific Gravity - Urine >= 1.030 (1.005-1.025); Urine Blood 1+ (NEG); Urine Ketones NEG (NEG); Urine Protein 2+ MG/DL (NEG-TRACE)
[2020-09-24 10:33] LABS: Prothrombin Time 12.4 SEC (10.8-13.0)
[2020-09-24] MEDS: Piperacillin Sodium/Tazobactam 4.5 GM in 0.9 % Sodium Chloride 100 ML IV ×3 (10:33→19:36)
[2020-09-24 10:36] LABS: Appearance Urine CLEAR; Color Urine YELLOW
--- NOTE | 2020-09-24 10:44 | PC.NURSE ---
patient difficult stick. iv antibiotics started before second set of blood cultures drawn.
[2020-09-24 10:45] LABS: Lactic Acid 0.9 mmol/L (0.5-2.0)
[2020-09-24 10:46] LABS: Ethanol < 10 mg/dL
[2020-09-24 10:48] LABS: VBG Base Excess 5.9 mmol/L; VBG HCO3 35 mmol/L (22-26); VBG pCO2 81 mmHg; VBG pH 7.24 (7.32-7.43); VBG pO2 68 mmHg
[2020-09-24 10:49] LABS: Lipase 28 U/L (8-78)
[2020-09-24 10:49] LABS: Venous Blood Gas Refer to POC result
[2020-09-24 10:50] LABS: Bacteria Urine TRACE /LPF; RBC Urine 0 /HPF (0); UACC CULT YES; WBC Clumps Urine NOTED
[2020-09-24 10:50] LABS: Alanine Aminotransferase 6 U/L (0-31); Albumin Level 3.4 g/dL (3.5-5.0); Alkaline Phosphatase 87 U/L (39-117); Anion Gap 12 (12-20); Aspartate Amino Transferase 14 U/L (5-31); Bilirubin Direct 0.3 mg/dL (0.0-0.5); Bilirubin Total 0.8 mg/dL (0.0-1.0); Blood Urea Nitrogen 26 mg/dL (9-16); Carbon Dioxide 33 mmol/L (22-29); Chloride 102 mmol/L (96-108); Creatinine Clr Calc Pharmacy 79.8; Estimated Glomerular Filt Rate 50; Glucose Random 132 mg/dL (60-115); Potassium 4.8 mmol/L (3.3-5.1); Sodium 142 mmol/L (135-145); Total Protein 6.2 g/dL (6.5-8.0)
[2020-09-24 10:53] LABS: B Type Natriuretic Peptide 96 pg/mL (<100); Troponin-I High Sensitivity 4.8 ng/L (<3.5-17.0)
[2020-09-24 11:01] LABS: Amphetamine Screen Urine Not Detected (Not Detect); Barbiturates, Urine Not Detected (Not Detect); Benzodiazepines Screen Urine Not Detected (Not Detect); Cannabinoid Screen Urine Not Detected (Not Detect); Cocaine Screen Urine Not Detected (Not Detect); Opiate Screen Urine Not Detected (Not Detect); Phencyclidine Screen Urine Not Detected (Not Detect)
[2020-09-24 11:10] LABS: TSH reflex Free T4 1.06 uIU/mL (0.32-4.0)
[2020-09-24 12:39] LABS: Adenovirus PCR Not Detected (Not Detect.); Bordetella parapertussis PCR Not Detected (Not Detect.); Bordetella pertussis PCR Not Detected (Not Detect.); Chlamydia pneumoniae PCR Not Detected (Not Detect.); Coronavirus 229E PCR Not Detected (Not Detect.); Coronavirus HKU1 PCR Not Detected (Not Detect.); Coronavirus NL63 PCR Not Detected (Not Detect.); Coronavirus OC43 PCR Not Detected (Not Detect.); Human metapneumovirus PCR Not Detected (Not Detect.); Influenza A PCR Not Detected (Not Detect.); Influenza B PCR Not Detected (Not Detect.); Mycoplasma pneumoniae PCR Not Detected (Not Detect.); Parainfluenza 1 PCR Not Detected (Not Detect.); Parainfluenza 2 PCR Not Detected (Not Detect.); Parainfluenza 3 PCR Not Detected (Not Detect.); Parainfluenza 4 PCR Not Detected (Not Detect.); RSV PCR Not Detected (Not Detect.); Rhino/Enterovirus PCR Not Detected (Not Detect.); SARS-CoV-2 PCR Not Detected (Not Detect.)
[2020-09-24] MEDS: Albuterol Sulfate (0.083%) 2.5 MG/3 ML VIAL.NEB 7.5 MG INHALE (12:56)
--- NOTE | 2020-09-24 12:56 | P.HPCC_ITS ---
History of Present Illness Date of Service: 09/24/20 Chief Complaint: Altered mental status 70-year-old hypertensive and hyperlipidemic with longstanding COPD/asthma/obesity and hypoventilation and sleep apnea just recently received her CPAP device at home and was doing well and right up to the time she was noted to have significant emesis and shortly thereafter she was unarousable according to the and brought here to the hospital again unarousable apparent acute on chronic hypercarbic and hypoxic respiratory failure with pCO2 of 88 pH of 7.[address] scan of the chest clearly consistent with very s ignificant bilateral aspiration and currently of course requiring because of very poor GCS score mechanical ventilation Morbidly obese and replaced hypothyroid as well Bedside echo shows preserved LV and RV systolic function with no primary valve or pericardial disease she is somewhat hypertrophic and although the IVC was not measurably distended of course on the ventilator we can not evaluate the lack of inspiratory collapse clearly a was full Review of Systems Review of Systems: Yes Unobtainable due to mental status PMFSH Past Medical History Medical History Asthma Diarrhea GERD (gastroesophageal reflux disease) Hypercholesteremia Hypertension Interstitial lung disease Neuropathy Seasonal allergies Thyroid activity decreased Surgical History Surgical History H/O: hysterectomy History of cholecystectomy Social History Social History Household Members: Other Household Members Other:: 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 Housing: Apartment Housing Other:: [place] Do you presently have visiting nurse or other home services: Yes (pct) Alcohol intake: unknown Advance Directives: No Advance Directives Information Provided: No service: No Current occupational status: retired Meds Allergies Allergy/AdvReac Type Severity Reaction Status Date / Time celecoxib [From CELEBREX] Allergy Unknown RASH Verified 08/12/20 14:26 Latex, Natural Rubber Allergy Rash Verified 08/12/20 14:26 ibuprofen [IBUPROFEN] AdvReac Intermediate RASH Verified 08/12/20 14:26 Active Medications: Current Medications Generic Name Dose Route Start Last Admin Trade Name Freq PRN Reason Stop Dose Admin Albuterol/Ipratropium 3 ml 09/24/20 16:00 Albuterol/Iprat 2.5/0.5mg 3 Ml Ampul.Neb INHALE RQ4H WHILE AWAKE [facility] Chlorhexidine Gluconate 15 ml 09/24/20 15:00 Chlorhexidine Gluc Oral Rinse 15 Ml Mouthwash BUCCAL TID [facility] Heparin Sodium (Porcine) 5,000 unit 09/24/20 14:00 Heparin Sodium,Porcine 5,000 Unit/Ml Vial SUBCUT Q8H [facility] Midazolam HCl 50 mg in 50 mls @ 2 mls/hr 09/24/20 10:00 Versed IVCONT .Q24H [facility] 2 MG/HR Fentanyl 1,000 mcg in 100 mls @ 0 mls/hr 09/24/20 10:00 09/24/20 09:58 Sublimaze/Ns IVCONT 100 mcg/hr .Q0M [facility] 10 mls/hr Administration Protocol Per Protocol Piperacillin Sod/Tazobactam 100 mls @ 200 mls/hr 09/24/20 13:00 Sod 4.5 gm/ Sodium Chloride IV Q6H [facility] Levothyroxine Sodium 25 mcg 09/24/20 13:00 Levothyroxine Sodium 100 Mcg Vial IVPUSH DAILY@0600 [facility] Naloxone HCl 0.2 mg 09/24/20 09:51 Naloxone Hcl 0.4 Mg/Ml Vial IVPUSH Q2M PRN Excessive sedation or RR < 8 Pantoprazole Sodium 40 mg 09/24/20 12:45 Pantoprazole Sodium 40 Mg/10 Ml Vial IVPUSH DAILY@0630 [facility] Home Medications Medication Instructions Recorded Confirmed Last Taken Type Dexilant 60 mg PO DAILY 01/30/20 07/30/20 Unknown History diphenoxylate-atropine 1 tab PO TID PRN 01/30/20 07/30/20 01/29/20 11:45 History hydrochlorothiazide 1 tab PO DAILY 01/30/20 07/30/20 Unknown History levothyroxine 1 tab PO DAILY 01/30/20 07/30/20 Unknown History pregabalin 1 cap PO BID 01/30/20 07/30/20 Unknown History atorvastatin 1 tab PO DAILY 07/30/20 07/30/20 Unknown History carvedilol 1 tab PO BID 07/30/20 07/30/20 Unknown History ketoconazole 1 appl TOPICAL BID 07/30/20 07/30/20 Unknown History losartan 1 tab PO DAILY 07/30/20 07/30/20 Unknown History triamcinolone acetonide [Nasal 2 spray INTRANASAL DAILY 07/30/20 07/30/20 Unknown History Allergy] cetirizine 10 mg tablet 10 mg PO DAILY 09/16/20 Unknown History montelukast 10 mg tablet 10 mg PO BEDTIME 09/16/20 Unknown History Physical Exam Vital Signs: Vital Signs: Last Vital Signs Temp 97.3 F 09/24/20 12:33 Pulse 68 09/24/20 12:33 Resp 18 09/24/20 12:33 BP 124/48 L 09/24/20 12:33 Pulse Ox 95 09/24/20 12:33 Body Mass Index 47.7 Morbidly obese and sedated and intubated Good bilateral carotid upstrokes no neck vein distension no resting gallops and bedside echo with preserved systolic function Abdomen is soft with good bowel sounds Chest with very mild prolongation of expiratory time no other significant adventitious sounds Results Labs CBC and Chem 7: 09/24/20 10:16 09/24/20 10:16 Labs: Laboratory Results - last 24 hr 09/24/20 09/24/20 09/24/20 10:16 10:16 10:16 MCV 92.2 MCH 28.5 MCHC 31.0 RDW 14.4 Plt Count 223 MPV 10.6 Immature Gran % (Auto) 0.2 Neut % (Auto) 86.3 H Lymph % (Auto) 9.4 L Barber % (Auto) 3.3 Eos % (Auto) 0.6 Baso % (Auto) 0.2 Lymph # (Auto) 0.5 L Barber # (Auto) 0.2 Eos # (Auto) 0.0 Baso # (Auto) 0.0 Abs Immat Gran (auto) 0.01 Absolute Neuts (auto) 4.5 Absolute Nucleated RBC 0.000 Nucleated RBC % (auto) 0.0 PT 12.4 INR 1.0 VBG pH VBG pCO2 VBG pO2 VBG HCO3 VBG O2 Saturation VBG Base Excess Anion Gap 12 Estim Creat Clear Calc 79.8 Estimated GFR 50 Random Glucose 132 H Lactic Acid Calcium 8.0 L Total Bilirubin 0.8 Direct Bilirubin 0.3 AST 14 ALT 6 Alkaline Phosphatase 87 Troponin I High Sens B-Natriuretic Peptide Total Protein 6.2 L Albumin 3.4 L Lipase TSH Urine Color Urine Appearance Urine pH Ur Specific [place] Urine Protein Urine Glucose (UA) Urine Ketones Urine Blood Urine Nitrite Ur Leukocyte Esterase Urine RBC Urine WBC Urine WBC Clumps Ur Squamous Epith Cells Urine Bacteria Urine Opiates Screen Ur Barbiturates Screen Ur Phencyclidine Scrn Ur Amphetamines Screen U Benzodiazepines Scrn Urine Cocaine Screen U Marijuana (THC) Screen Ethyl Alcohol 09/24/20 09/24/20 09/24/20 10:16 10:16 10:16 MCV MCH MCHC RDW Plt Count MPV Immature Gran % (Auto) Neut % (Auto) Lymph % (Auto) Barber % (Auto) Eos % (Auto) Baso % (Auto) Lymph # (Auto) Barber # (Auto) Eos # (Auto) Baso # (Auto) Abs Immat Gran (auto) Absolute Neuts (auto) Absolute Nucleated RBC Nucleated RBC % (auto) PT INR VBG pH VBG pCO2 VBG pO2 VBG HCO3 VBG O2 Saturation VBG Base Excess Anion Gap Estim Creat Clear Calc Estimated GFR Random Glucose Lactic Acid 0.9 Calcium Total Bilirubin Direct Bilirubin AST ALT Alkaline Phosphatase Troponin I High Sens 4.8 B-Natriuretic Peptide 96 Total Protein Albumin Lipase 28 TSH 1.06 Urine Color Urine Appearance Urine pH Ur Specific [place] Urine Protein Urine Glucose (UA) Urine Ketones Urine Blood Urine Nitrite Ur Leukocyte Esterase Urine RBC Urine WBC Urine WBC Clumps Ur Squamous Epith Cells Urine Bacteria Urine Opiates Screen Ur Barbiturates Screen Ur Phencyclidine Scrn Ur Amphetamines Screen U Benzodiazepines Scrn Urine Cocaine Screen U Marijuana (THC) Screen Ethyl Alcohol 09/24/20 09/24/20 09/24/20 10:17 10:17 10:17 MCV MCH MCHC RDW Plt Count MPV Immature Gran % (Auto) Neut % (Auto) Lymph % (Auto) Barber % (Auto) Eos % (Auto) Baso % (Auto) Lymph # (Auto) Barber # (Auto) Eos # (Auto) Baso # (Auto) Abs Immat Gran (auto) Absolute Neuts (auto) Absolute Nucleated RBC Nucleated RBC % (auto) PT INR VBG pH VBG pCO2 VBG pO2 VBG HCO3 VBG O2 Saturation VBG Base Excess Anion Gap Estim Creat Clear Calc Estimated GFR Random Glucose Lactic Acid Calcium Total Bilirubin Direct Bilirubin AST ALT Alkaline Phosphatase Troponin I High Sens B-Natriuretic Peptide Total Protein Albumin Lipase TSH Urine Color YELLOW Urine Appearance CLEAR Urine pH 5.5 Ur Specific [place] >= 1.030 H Urine Protein 2+ H Urine Glucose (UA) NEG Urine Ketones NEG Urine Blood 1+ H Urine Nitrite NEG Ur Leukocyte Esterase NEG Urine RBC 0 Urine WBC 10-14 H Urine WBC Clumps NOTED Ur Squamous Epith Cells NONE Urine Bacteria TRACE Urine Opiates Screen Not Detected Ur Barbiturates Screen Not Detected Ur Phencyclidine Scrn Not Detected Ur Amphetamines Screen Not Detected U Benzodiazepines Scrn Not Detected Urine Cocaine Screen Not Detected U Marijuana (THC) Screen Not Detected Ethyl Alcohol < 10 09/24/20 10:40 MCV MCH MCHC RDW Plt Count MPV Immature Gran % (Auto) Neut % (Auto) Lymph % (Auto) Barber % (Auto) Eos % (Auto) Baso % (Auto) Lymph # (Auto) Barber # (Auto) Eos # (Auto) Baso # (Auto) Abs Immat Gran (auto) Absolute Neuts (auto) Absolute Nucleated RBC Nucleated RBC % (auto) PT INR VBG pH 7.24 L VBG pCO2 81 VBG pO2 68 VBG HCO3 35 H VBG O2 Saturation 91.0 VBG Base Excess 5.9 Anion Gap Estim Creat Clear Calc Estimated GFR Random Glucose Lactic Acid Calcium Total Bilirubin Direct Bilirubin AST ALT Alkaline Phosphatase Troponin I High Sens B-Natriuretic Peptide Total Protein Albumin Lipase TSH Urine Color Urine Appearance Urine pH Ur Specific [place] Urine Protein Urine Glucose (UA) Urine Ketones Urine Blood Urine Nitrite Ur Leukocyte Esterase Urine RBC Urine WBC Urine WBC Clumps Ur Squamous Epith Cells Urine Bacteria Urine Opiates Screen Ur Barbiturates Screen Ur Phencyclidine Scrn Ur Amphetamines Screen U Benzodiazepines Scrn Urine Cocaine Screen U Marijuana (THC) Screen Ethyl Alcohol Imaging Radiologist's Impressions: Impressions Chest X-Ray 09/24/20 09:50 IMPRESSION: Bilateral lower lobe infiltrate/atelectasis with underlying small pleural effusions. Assessment and Plan (1) Acute hypercapnic respiratory failure: Status: Acute (2) Aspiration pneumonia: Qualifiers: Aspiration pneumonia type: unspecified Laterality: bilateral Lung location: unspecified part of lung Qualified Code(s): J69.0 - Pneumonitis due to inhalation of food and vomit Status: Acute (3) Interstitial lung disease: Status: Acute (4) Morbid obesity: Status: Acute (5) Obesity hypoventilation syndrome: Status: Acute (6) Obstructive sleep apnea: Status: Acute The plan is to maintain the ventilator support for now and to give her some aggressive bronchodilator Ng therapies and watch for superimposed fever but will continue with the IV Zosyn for at community-acquired aspiration pneumonitis and because of the asthma exacerbation and clearly the significant bronchial ob struction as indicated by the end-tidal CO2 curve will be aggressive with the bronchodilator therapy
[2020-09-24] MEDS: methylPREDNISolone Sod Succ 125 MG/2 ML VIAL IVPUSH (13:16)
[2020-09-24] MEDS: Pantoprazole Sodium 40 MG/10 ML VIAL IVPUSH (13:16)
[2020-09-24] MEDS: Levothyroxine Sodium 100 MCG VIAL 25 MCG IVPUSH (14:57)
[2020-09-24] MEDS: Heparin Sodium,Porcine 5,000 UNIT/ML VIAL 5000 UNIT SUBCUT ×2 (14:58→20:33)
[2020-09-24] MEDS: Chlorhexidine Gluc Oral Rinse 15 ML MOUTHWASH BUCCAL ×2 (14:59→19:35)
[2020-09-24] MEDS: propofoL 200 MG/20 ML VIAL 30 MG IVPUSH (15:11)
[2020-09-24] MEDS: propofoL 1,000 MG/100 ML VIAL 18.12 MG IVCONT ×2 (15:11→19:33)
[2020-09-24] MEDS: Albuterol/Iprat 2.5/0.5MG 3 ML AMPUL.NEB INHALE ×2 (15:12→19:41)
--- NOTE | 2020-09-24 15:35 | MHC.CM.PN ---
a chart review is being conducted for initial CM assessment as pt is in icu - intubated, vented and sedated. s.o. is not at bedside at this time. pt lives c her s.o. in their apt in [place], he is listed c ph # under contacts. she uses a cpap at [facility] which she is new to. their is no hcp in the EMR. pt will most likely need STR when medically stable and ready for dc. details of dc plan are deferred until a future time. cm to cont. to follow.
--- NOTE | 2020-09-24 15:53 | MHC.CLN ---
RE: CONSULT IF TF NEEDED; RECOMMEND PROMOTE AT MAX GOAL RATE 45CC/HR TO PROVIDE 1080KCALS (1558KCALS WITH SEDATION; 23KCALS/KG), 67.5G PROTEIN (1.0G/KG BASED ON IBW), 906CC FREE WATER FROM FORMULA START AT 20CC/HR AND INCREASE BY 10CC Q 4 HRS UNTIL MAX GAOL RATE IS ACHIEVED MONITOR TOLERANCE, RESIDUALS AND LYTES
--- NOTE | 2020-09-24 18:44 | PC.NURSE ---
Patient admitted to ICU at 1400 for aspiration pneumonia Afebrile Sedation changed from Fentanyl to Propofol Absent cough and gag Absent pain response Pupils 3mm, PERRLA SR hr 60's, no ectopy Generalized edema throughout PRN angios patent Rhonchi throughout, thick yellow inline secretions #7.5 ETT @ 25cm PC 34, RATE 18/7/80% Continued on IV Zosyn Abdomen large, obese, positive bowel sounds Unknown last BM Urine o/p 20-45cc No skin integrity concerns Air loss bed & prevlon pad in place Family updated
[2020-09-24] MEDS: Furosemide 20 MG/2 ML VIAL IVPUSH (20:33)
[2020-09-25] VITALS (29 sets, daily range): BP systolic 86–153; BP diastolic 30–82; PULSE 68–88; RESP 16–20; TEMP 37.2–37.9; O2SAT 91–100; BMI 50.9
[2020-09-25] MEDS: propofoL 1,000 MG/100 ML VIAL 18.12 MG IVCONT ×2 (00:34→04:51)
[2020-09-25] MEDS: Piperacillin Sodium/Tazobactam 4.5 GM in 0.9 % Sodium Chloride 100 ML IV ×4 (03:18→20:36)
[2020-09-25] MEDS: Levothyroxine Sodium 100 MCG VIAL 25 MCG IVPUSH (04:53)
[2020-09-25] MEDS: Heparin Sodium,Porcine 5,000 UNIT/ML VIAL 5000 UNIT SUBCUT ×3 (04:54→20:36)
[2020-09-25] MEDS: Pantoprazole Sodium 40 MG/10 ML VIAL IVPUSH (04:55)
[2020-09-25 06:00] LABS: VBG HCO3 32 mmol/L (22-26); VBG pCO2 43 mmHg; VBG pH 7.47 (7.32-7.43); VBG pO2 29 mmHg
[2020-09-25 06:07] LABS: Hematocrit 32.9 % (37-47); Hemoglobin 10.5 g/dl (12.0-16.0); Mean Corpuscular HGB Conc 31.9 g/dl (31.0-35.0); Mean Corpuscular Hemoglobin 28.5 pg (27.0-33.0); Mean Corpuscular Volume 89.2 fL (80-98); Mean Platelet Volume 11.7 fL (9.4-12.3); Platelet Count 215 X10*3/uL (160-400); Red Blood Count 3.69 X10*6/uL (4.20-5.50); Red Cell Distribution Width 14.4 % (11.0-16.0); White Blood Count 16.1 X10*3/uL (4.8-10.8)
[2020-09-25 06:16] LABS: INTERNATIONAL NORM RATIO 1.2 (0.9-1.1); Prothrombin Time 14.4 SEC (10.8-13.0)
[2020-09-25 06:19] LABS: Partial Thromboplastin Time 29.7 SEC (24.1-38.0)
[2020-09-25 06:26] LABS: Venous Blood Gas Refer to POC result
[2020-09-25 06:46] LABS: Anion Gap 13 (12-20); Blood Urea Nitrogen 34 mg/dL (9-16); Calcium 8.1 mg/dL (8.4-10.2); Carbon Dioxide 29 mmol/L (22-29); Chloride 101 mmol/L (96-108); Creatinine Clr Calc Pharmacy 62.5; Estimated Glomerular Filt Rate 38; Glucose Random 174 mg/dL (60-115); Phosphorus 2.1 mg/dL (2.7-4.5); Potassium 4.3 mmol/L (3.3-5.1); Sodium 139 mmol/L (135-145)
[2020-09-25 06:49] LABS: Band Neutrophils Percent 7 % (3-5); Lymphocytes Absolute Manual 0.8 X10*3/uL (0.6-4.8); Lymphocytes Percent Manual 5 % (20-40); Myelocytes Absolute 0.3 X10*/uL; Myelocytes Percent 2 %; Neutrophils Percent Manual 86 % (45-73)
[2020-09-25 06:50] LABS: Microcytosis 1+ (5-14) /OIF; RBC Morphology NOTED
[2020-09-25 06:51] LABS: Large Platelet PRESENT; Platelet Estimate NORMAL (NORMAL); Platelet Morphology Comment NORMAL; Toxic Vacuolation PRESENT
[2020-09-25 06:52] LABS: Basophilic Stippling 1+ (0-2) /OIF
[2020-09-25] MEDS: Albuterol/Iprat 2.5/0.5MG 3 ML AMPUL.NEB INHALE ×4 (08:05→20:34)
[2020-09-25] MEDS: propofoL 1,000 MG/100 ML VIAL 27.18 MG IVCONT (08:27)
[2020-09-25] MEDS: Chlorhexidine Gluc Oral Rinse 15 ML MOUTHWASH BUCCAL ×3 (08:27→20:36)
--- NOTE | 2020-09-25 10:04 | P.PNCC_ITS ---
Subjective Subjective Date of Service: 09/25/20 Interval History: He 70-year-old morbidly obese female with obesity hypoventilation and obstructive sleep apnea who had just received her outpatient CPAP machine when apparently was noted to have significant vomiting and then was noted to be unresponsive by her brought in with acute on chronic hypercarbic and hypoxic respiratory failure requiring intubation and she remains sedated and intubated with improving arterial blood gas now down to an FiO2 of 60% and also noted that there was a small increase in serum creatinine from 1.0 8-1.38 today so there is a degree of acute renal insufficiency at least at a stage II level probably on an ATN basis Critical Care Time (minutes): 45 Physical Exam Vital Signs: Vital Signs: Last Vital Signs Temp 100.0 F 09/25/20 09:00 Pulse 77 09/25/20 09:00 Resp 18 09/25/20 09:00 BP 129/51 L 09/25/20 09:00 Pulse Ox 95 09/25/20 09:00 Body Mass Index 50.9 Const: Other: Sedated and intubated but moves all 4 extremities nonfocal neurologically Skin is intact Cardiac exam with no gallops or murmurs bedside echo indicating preserved LV and RV function with no primary valve or pericardial disease No again a megaly abdomen is obese tolerating feedings Chest with diminished bilateral breath sounds Objective Data Labs CBC & Chem 7: 09/25/20 05:54 09/25/20 05:54 Labs: Laboratory Results - last 24 hr 09/24/20 09/24/20 09/24/20 10:16 10:16 10:16 WBC 5.2 RBC 3.96 L Hgb 11.3 L Hct 36.5 L MCV 92.2 MCH 28.5 MCHC 31.0 RDW 14.4 Plt Count 223 MPV 10.6 Immature Gran % (Auto) 0.2 Neut % (Auto) 86.3 H Lymph % (Auto) 9.4 L [place] % (Auto) 3.3 Eos % (Auto) 0.6 Baso % (Auto) 0.2 Lymph # (Auto) 0.5 L [place] # (Auto) 0.2 Eos # (Auto) 0.0 Baso # (Auto) 0.0 Abs Immat Gran (auto) 0.01 Absolute Neuts (auto) 4.5 Absolute Nucleated RBC 0.000 Nucleated RBC % (auto) 0.0 Neutrophils % (Manual) Band Neutrophils % Lymphocytes % (Manual) Myelocytes % Abs Neuts (Manual) Lymphocytes # (Manual) Myelocytes # Toxic Vacuolation Platelet Estimate Large Platelets Plt Morphology Comment RBC Morphology Basophilic Stippling Microcytosis PT 12.4 INR 1.0 APTT VBG pH VBG pCO2 VBG pO2 VBG HCO3 VBG O2 Saturation VBG Base Excess Sodium 142 Potassium 4.8 D Chloride 102 Carbon Dioxide 33 H Anion Gap 12 BUN 26 H Creatinine 1.08 Estim Creat Clear Calc 79.8 Estimated GFR 50 Random Glucose 132 H Lactic Acid Calcium 8.0 L Phosphorus Total Bilirubin 0.8 Direct Bilirubin 0.3 AST 14 ALT 6 Alkaline Phosphatase 87 Troponin I High Sens B-Natriuretic Peptide Total Protein 6.2 L Albumin 3.4 L Lipase TSH Urine Color Urine Appearance Urine pH Ur Specific [place] Urine Protein Urine Glucose (UA) Urine Ketones Urine Blood Urine Nitrite Ur Leukocyte Esterase Urine RBC Urine WBC Urine WBC Clumps Ur Squamous Epith Cells Urine Bacteria Urine Opiates Screen Ur Barbiturates Screen Ur Phencyclidine Scrn Ur Amphetamines Screen U Benzodiazepines Scrn Urine Cocaine Screen U Marijuana (THC) Screen Ethyl Alcohol Respiratory Panel Mike Adenovirus (Rapid PCR) B.pert (TEM-PCR) B.parapertussis DNA PCR C. pneumoniae DNA (PCR) Coronavirus OC43 (PCR) Coronavirus HKU1 (PCR) Coronavirus 229E (PCR) Coronavirus NL63 (PCR) Human Metapneumovir PCR Influenza A (RT-PCR) Influenza B (RT-PCR) M. pneumoniae (PCR) Parainfluenza 1 (PCR) Parainfluenza 2 (PCR) Parainfluenza 3 (PCR) Parainfluenza 4 (PCR) RSV (PCR) Entero/Rhino (PCR) SARS-CoV-2 RNA (RT-PCR) 09/24/20 09/24/20 09/24/20 10:16 10:16 10:16 WBC RBC Hgb Hct MCV MCH MCHC RDW Plt Count MPV Immature Gran % (Auto) Neut % (Auto) Lymph % (Auto) [place] % (Auto) Eos % (Auto) Baso % (Auto) Lymph # (Auto) [place] # (Auto) Eos # (Auto) Baso # (Auto) Abs Immat Gran (auto) Absolute Neuts (auto) Absolute Nucleated RBC Nucleated RBC % (auto) Neutrophils % (Manual) Band Neutrophils % Lymphocytes % (Manual) Myelocytes % Abs Neuts (Manual) Lymphocytes # (Manual) Myelocytes # Toxic Vacuolation Platelet Estimate Large Platelets Plt Morphology Comment RBC Morphology Basophilic Stippling Microcytosis PT INR APTT VBG pH VBG pCO2 VBG pO2 VBG HCO3 VBG O2 Saturation VBG Base Excess Sodium Potassium Chloride Carbon Dioxide Anion Gap BUN Creatinine Estim Creat Clear Calc Estimated GFR Random Glucose Lactic Acid 0.9 Calcium Phosphorus Total Bilirubin Direct Bilirubin AST ALT Alkaline Phosphatase Troponin I High Sens 4.8 B-Natriuretic Peptide 96 Total Protein Albumin Lipase 28 TSH 1.06 Urine Color Urine Appearance Urine pH Ur Specific [place] Urine Protein Urine Glucose (UA) Urine Ketones Urine Blood Urine Nitrite Ur Leukocyte Esterase Urine RBC Urine WBC Urine WBC Clumps Ur Squamous Epith Cells Urine Bacteria Urine Opiates Screen Ur Barbiturates Screen Ur Phencyclidine Scrn Ur Amphetamines Screen U Benzodiazepines Scrn Urine Cocaine Screen U Marijuana (THC) Screen Ethyl Alcohol Respiratory Panel Mike Adenovirus (Rapid PCR) B.pert (TEM-PCR) B.parapertussis DNA PCR C. pneumoniae DNA (PCR) Coronavirus OC43 (PCR) Coronavirus HKU1 (PCR) Coronavirus 229E (PCR) Coronavirus NL63 (PCR) Human Metapneumovir PCR Influenza A (RT-PCR) Influenza B (RT-PCR) M. pneumoniae (PCR) Parainfluenza 1 (PCR) Parainfluenza 2 (PCR) Parainfluenza 3 (PCR) Parainfluenza 4 (PCR) RSV (PCR) Entero/Rhino (PCR) SARS-CoV-2 RNA (RT-PCR) 09/24/20 09/24/20 09/24/20 10:17 10:17 10:17 WBC RBC Hgb Hct MCV MCH MCHC RDW Plt Count MPV Immature Gran % (Auto) Neut % (Auto) Lymph % (Auto) [place] % (Auto) Eos % (Auto) Baso % (Auto) Lymph # (Auto) [place] # (Auto) Eos # (Auto) Baso # (Auto) Abs Immat Gran (auto) Absolute Neuts (auto) Absolute Nucleated RBC Nucleated RBC % (auto) Neutrophils % (Manual) Band Neutrophils % Lymphocytes % (Manual) Myelocytes % Abs Neuts (Manual) Lymphocytes # (Manual) Myelocytes # Toxic Vacuolation Platelet Estimate Large Platelets Plt Morphology Comment RBC Morphology Basophilic Stippling Microcytosis PT INR APTT VBG pH VBG pCO2 VBG pO2 VBG HCO3 VBG O2 Saturation VBG Base Excess Sodium Potassium Chloride Carbon Dioxide Anion Gap BUN Creatinine Estim Creat Clear Calc Estimated GFR Random Glucose Lactic Acid Calcium Phosphorus Total Bilirubin Direct Bilirubin AST ALT Alkaline Phosphatase Troponin I High Sens B-Natriuretic Peptide Total Protein Albumin Lipase TSH Urine Color YELLOW Urine Appearance CLEAR Urine pH 5.5 Ur Specific [place] >= 1.030 H Urine Protein 2+ H Urine Glucose (UA) NEG Urine Ketones NEG Urine Blood 1+ H Urine Nitrite NEG Ur Leukocyte Esterase NEG Urine RBC 0 Urine WBC 10-14 H Urine WBC Clumps NOTED Ur Squamous Epith Cells NONE Urine Bacteria TRACE Urine Opiates Screen Not Detected Ur Barbiturates Screen Not Detected Ur Phencyclidine Scrn Not Detected Ur Amphetamines Screen Not Detected U Benzodiazepines Scrn Not Detected Urine Cocaine Screen Not Detected U Marijuana (THC) Screen Not Detected Ethyl Alcohol < 10 Respiratory Panel Mike Adenovirus (Rapid PCR) B.pert (TEM-PCR) B.parapertussis DNA PCR C. pneumoniae DNA (PCR) Coronavirus OC43 (PCR) Coronavirus HKU1 (PCR) Coronavirus 229E (PCR) Coronavirus NL63 (PCR) Human Metapneumovir PCR Influenza A (RT-PCR) Influenza B (RT-PCR) M. pneumoniae (PCR) Parainfluenza 1 (PCR) Parainfluenza 2 (PCR) Parainfluenza 3 (PCR) Parainfluenza 4 (PCR) RSV (PCR) Entero/Rhino (PCR) SARS-CoV-2 RNA (RT-PCR) 09/24/20 09/24/20 09/25/20 10:40 12:35 05:53 WBC RBC Hgb Hct MCV MCH MCHC RDW Plt Count MPV Immature Gran % (Auto) Neut % (Auto) Lymph % (Auto) [place] % (Auto) Eos % (Auto) Baso % (Auto) Lymph # (Auto) [place] # (Auto) Eos # (Auto) Baso # (Auto) Abs Immat Gran (auto) Absolute Neuts (auto) Absolute Nucleated RBC Nucleated RBC % (auto) Neutrophils % (Manual) Band Neutrophils % Lymphocytes % (Manual) Myelocytes % Abs Neuts (Manual) Lymphocytes # (Manual) Myelocytes # Toxic Vacuolation Platelet Estimate Large Platelets Plt Morphology Comment RBC Morphology Basophilic Stippling Microcytosis PT INR APTT VBG pH 7.24 L 7.47 H VBG pCO2 81 43 VBG pO2 68 29 VBG HCO3 35 H 32 H VBG O2 Saturation 91.0 53.0 VBG Base Excess 5.9 8.0 Sodium Potassium Chloride Carbon Dioxide Anion Gap BUN Creatinine Estim Creat Clear Calc Estimated GFR Random Glucose Lactic Acid Calcium Phosphorus Total Bilirubin Direct Bilirubin AST ALT Alkaline Phosphatase Troponin I High Sens B-Natriuretic Peptide Total Protein Albumin Lipase TSH Urine Color Urine Appearance Urine pH Ur Specific [place] Urine Protein Urine Glucose (UA) Urine Ketones Urine Blood Urine Nitrite Ur Leukocyte Esterase Urine RBC Urine WBC Urine WBC Clumps Ur Squamous Epith Cells Urine Bacteria Urine Opiates Screen Ur Barbiturates Screen Ur Phencyclidine Scrn Ur Amphetamines Screen U Benzodiazepines Scrn Urine Cocaine Screen U Marijuana (THC) Screen Ethyl Alcohol Respiratory Panel Mike See Note Adenovirus (Rapid PCR) Not Detected B.pert (TEM-PCR) Not Detected B.parapertussis DNA PCR Not Detected C. pneumoniae DNA (PCR) Not Detected Coronavirus OC43 (PCR) Not Detected Coronavirus HKU1 (PCR) Not Detected Coronavirus 229E (PCR) Not Detected Coronavirus NL63 (PCR) Not Detected Human Metapneumovir PCR Not Detected Influenza A (RT-PCR) Not Detected Influenza B (RT-PCR) Not Detected M. pneumoniae (PCR) Not Detected Parainfluenza 1 (PCR) Not Detected Parainfluenza 2 (PCR) Not Detected Parainfluenza 3 (PCR) Not Detected Parainfluenza 4 (PCR) Not Detected RSV (PCR) Not Detected Entero/Rhino (PCR) Not Detected SARS-CoV-2 RNA (RT-PCR) Not Detected 09/25/20 09/25/20 09/25/20 05:54 05:54 05:54 WBC 16.1 H RBC 3.69 L Hgb 10.5 L Hct 32.9 L MCV 89.2 MCH 28.5 MCHC 31.9 RDW 14.4 Plt Count 215 MPV 11.7 Immature Gran % (Auto) Cancelled Neut % (Auto) Cancelled Lymph % (Auto) Cancelled [place] % (Auto) Cancelled Eos % (Auto) Cancelled Baso % (Auto) Cancelled Lymph # (Auto) Cancelled [place] # (Auto) Cancelled Eos # (Auto) Cancelled Baso # (Auto) Cancelled Abs Immat Gran (auto) Cancelled Absolute Neuts (auto) Cancelled Absolute Nucleated RBC 0.000 Nucleated RBC % (auto) 0.0 Neutrophils % (Manual) 86 H Band Neutrophils % 7 H Lymphocytes % (Manual) 5 L Myelocytes % 2 Abs Neuts (Manual) 15.0 H Lymphocytes # (Manual) 0.8 Myelocytes # 0.3 Toxic Vacuolation PRESENT Platelet Estimate NORMAL Large Platelets PRESENT Plt Morphology Comment NORMAL RBC Morphology NOTED Basophilic Stippling 1+ (0-2) Microcytosis 1+ (5-14) PT 14.4 H INR 1.2 H APTT 29.7 VBG pH VBG pCO2 VBG pO2 VBG HCO3 VBG O2 Saturation VBG Base Excess Sodium 139 Potassium 4.3 Chloride 101 Carbon Dioxide 29 Anion Gap 13 BUN 34 H Creatinine 1.38 Estim Creat Clear Calc 62.5 Estimated GFR 38 Random Glucose 174 H Lactic Acid Calcium 8.1 L Phosphorus 2.1 L Total Bilirubin Direct Bilirubin AST ALT Alkaline Phosphatase Troponin I High Sens B-Natriuretic Peptide Total Protein Albumin Lipase TSH Urine Color Urine Appearance Urine pH Ur Specific [place] Urine Protein Urine Glucose (UA) Urine Ketones Urine Blood Urine Nitrite Ur Leukocyte Esterase Urine RBC Urine WBC Urine WBC Clumps Ur Squamous Epith Cells Urine Bacteria Urine Opiates Screen Ur Barbiturates Screen Ur Phencyclidine Scrn Ur Amphetamines Screen U Benzodiazepines Scrn Urine Cocaine Screen U Marijuana (THC) Screen Ethyl Alcohol Respiratory Panel Mike Adenovirus (Rapid PCR) B.pert (TEM-PCR) B.parapertussis DNA PCR C. pneumoniae DNA (PCR) Coronavirus OC43 (PCR) Coronavirus HKU1 (PCR) Coronavirus 229E (PCR) Coronavirus NL63 (PCR) Human Metapneumovir PCR Influenza A (RT-PCR) Influenza B (RT-PCR) M. pneumoniae (PCR) Parainfluenza 1 (PCR) Parainfluenza 2 (PCR) Parainfluenza 3 (PCR) Parainfluenza 4 (PCR) RSV (PCR) Entero/Rhino (PCR) SARS-CoV-2 RNA (RT-PCR) Microbiology Microbiology Results: Microbiology 09/24/20 10:02 Urine Catheterized - Maciel Catheter Urine Culture - Preliminary Gram negative ivis Progress Note: A&P Assessment and plan (1) Acute hypercapnic respiratory failure: Status: Acute (2) Aspiration pneumonia: Status: Acute (3) Interstitial lung disease: Status: Acute (4) Morbid obesity: Status: Acute (5) Obesity hypoventilation syndrome: Status: Acute (6) Obstructive sleep apnea: Status: Acute Assessment and Plan: So stable on the ventilator with gradually reducing FiO2 and she will remain on Zosyn feedings will be started Quality Stroke Does the patient have a stroke diagnosis?: No Reason for No Anti-thrombotic by Day Two: N/A - Med Ordered VTE Prior VTE?: No VTE Risk Level:: Medical - moderate - high VTE Device Contraindication: N/A - Device Ordered VTE Drug Contraindication: N/A - Med Ordered
--- NOTE | 2020-09-25 10:17 | MHC.CM.PN ---
Review of EMR and CM notes: Pt remains intubated in ICU and thus unable to participate in CM assessment or d/c planning discussion. Call placed to pt's life partner Edward: message left requesting a callback to inquire on pt's functional abilities and any existing services. CM to await call back or participation from pt to finalize d/c plans.
[2020-09-25] MEDS: propofoL 1,000 MG/100 ML VIAL 36.24 MG IVCONT ×4 (10:22→20:35)
--- NOTE | 2020-09-25 17:17 | PC.NURSE ---
GLUCERNA TUBE FEEDS STARTED AT 0845 ORDERED. AT 1530 ASSESSMENT TUBE FEED RESIDUAL WAS 300 ML - A MIX OF TUBE FEEDS AND GREEN BILE. MD BEDSIDE TO ASSESS AND ORDERED TUBE FEEDS TO BE PUT ON HOLD AND OG TUBE TO BE HOOKED UP TO INTERMITTENT SUCTION. WILL CONTINUE TO MONITOR.
[2020-09-25] MEDS: Dextrose 5 % and 0.45 % NaCl 1,000 ML 100 ML IVCONT (17:29)
--- NOTE | 2020-09-25 18:50 | PC.NURSE ---
IV ACCESS LOST. MULTIPLE RNS ATTEMPTED IV STICKS WITHOUT SUCCESS. SEDATION AND IV FLUIDS ON HOLD. AWAITING PA FOR BEDSIDE EVAL.
--- NOTE | 2020-09-25 19:14 | PC.NURSE ---
[facility] TOOK ALL OF PATIENTS BELONGINGS HOME.
[2020-09-25] MEDS: Ketamine HCl 500 MG/5 ML VIAL IM (19:34)
--- NOTE | 2020-09-25 20:07 | W.PM.CCHP ---
Procedures Date of Service Date of Service: 09/25/20 Central Line Placement Right IJ: Central Line Comments: venous access needed, gave pt 250mg IM ketamine for pain/sedation as pt is intubated with no access and wide awake. Consent for Procedure: Emergent-no informed consent obtained Time out performed: Yes Sterile Technique Used: Yes Patient placed on monitor/pulse ox: Yes prep: mask, gown and gloves Central line prep: Chlorhexidine scrub Ultrasound used for placement: Yes Central line lumen inserted: triple Post procedure: sutured in place, good blood return, all ports aspirated, flushed, capped and sterile dressing applied Post procedure x-ray: tip of catheter in good position and no pneumothorax seen Patient tolerated procedure: well and no complications Complications: none
[2020-09-26] VITALS (37 sets, daily range): BP systolic 85–147; BP diastolic 28–58; PULSE 60–97; RESP 13–94; TEMP -12–38.6; O2SAT 2–99; BMI 54.3
[2020-09-26] MEDS: 0.9 % Sodium Chloride Flush 3 ML SYRINGE IVFLUSH ×3 (00:43→16:10)
[2020-09-26] MEDS: Piperacillin Sodium/Tazobactam 4.5 GM in 0.9 % Sodium Chloride 100 ML IV ×4 (04:52→21:59)
[2020-09-26] MEDS: propofoL 1,000 MG/100 ML VIAL 9.06 MG IVCONT ×2 (04:52→16:05)
[2020-09-26] MEDS: Dextrose 5 % and 0.45 % NaCl 1,000 ML 100 ML IVCONT (04:57)
[2020-09-26] MEDS: Heparin Sodium,Porcine 5,000 UNIT/ML VIAL 5000 UNIT SUBCUT ×3 (05:18→21:55)
[2020-09-26] MEDS: Pantoprazole Sodium 40 MG/10 ML VIAL IVPUSH (05:18)
[2020-09-26 05:54] LABS: VBG Base Excess 36.1 mmol/L; VBG HCO3 67 mmol/L (22-26); VBG pCO2 104 mmHg; VBG pH 7.41 (7.32-7.43); VBG pO2 39 mmHg
[2020-09-26 05:59] LABS: MANUAL DIFF FLAG NO
[2020-09-26 06:13] LABS: Basophils Percent Auto 0.2 % (0-2); Eosinophils Absolute Auto 0.1 X10*3/uL (0.0-0.4); Eosinophils Percent Auto 0.3 % (0-4); Hematocrit 29.6 % (37-47); Hemoglobin 9.7 g/dl (12.0-16.0); Imm Gran Abs Auto 0.14 X10*3/uL (0.00-0.03); Imm Gran Pct Auto 0.8 % (0.0-0.4); Lymphocytes Percent Auto 11.7 % (20-40); Mean Corpuscular HGB Conc 32.8 g/dl (31.0-35.0); Mean Corpuscular Hemoglobin 28.4 pg (27.0-33.0); Mean Corpuscular Volume 86.5 fL (80-98); Mean Platelet Volume 11.4 fL (9.4-12.3); Monocytes Absolute Auto 0.5 X10*3/uL (0.1-1.2); Neutrophils Absolute Auto 14.5 X10*3/uL (2.0-8.3); Platelet Count 212 X10*3/uL (160-400); Red Blood Count 3.42 X10*6/uL (4.20-5.50); Red Cell Distribution Width 15.2 % (11.0-16.0); White Blood Count 17.2 X10*3/uL (4.8-10.8)
[2020-09-26 06:19] LABS: INTERNATIONAL NORM RATIO 1.2 (0.9-1.1); Prothrombin Time 13.8 SEC (10.8-13.0)
[2020-09-26 06:21] LABS: Partial Thromboplastin Time 28.3 SEC (24.1-38.0)
[2020-09-26] MEDS: Levothyroxine Sodium 100 MCG/5 ML VIAL 25 MCG IVPUSH (06:38)
[2020-09-26 06:43] LABS: Anion Gap 14 (12-20); Blood Urea Nitrogen 40 mg/dL (9-16); Calcium 7.7 mg/dL (8.4-10.2); Carbon Dioxide 30 mmol/L (22-29); Chloride 100 mmol/L (96-108); Creatinine Clr Calc Pharmacy 65.5; Estimated Glomerular Filt Rate 38; Glucose Random 122 mg/dL (60-115); Magnesium 1.9 mg/dL (1.6-2.6); Phosphorus 3.9 mg/dL (2.7-4.5); Potassium 3.9 mmol/L (3.3-5.1); Sodium 140 mmol/L (135-145)
[2020-09-26 06:54] LABS: Venous Blood Gas Refer to POC result
[2020-09-26] MEDS: Albuterol/Iprat 2.5/0.5MG 3 ML AMPUL.NEB INHALE ×4 (07:47→19:34)
[2020-09-26 08:24] LABS: Venous Blood Gas Refer to POC result
[2020-09-26 08:25] LABS: VBG Base Excess 7.2 mmol/L; VBG HCO3 31 mmol/L (22-26); VBG pCO2 45 mmHg; VBG pH 7.45 (7.32-7.43); VBG pO2 58 mmHg
[2020-09-26] MEDS: Chlorhexidine Gluc Oral Rinse 15 ML MOUTHWASH BUCCAL ×3 (08:46→21:55)
--- NOTE | 2020-09-26 12:40 | MHC.CM.PN ---
Call placed to pt's significant other, Benoit: message left to discuss d/c planning needs of pt. Discussed pt with [employer] who has conversed at length with [employer]: also met with pt who although intubated, can nod yes and no to questions. Pt resides with Benoit and has [facility] services 2x weekly. She has a working CPAP with O2 services through [facility]. She uses a walker and [employer] provides transportation. Pt does not have other supports in the community: Benoit is her primary support. Pt is likely to be very deconditioned requiring extensive nursing and medical care - SNF seems inevitable. Will initiate a broad search as well as VNA options should pt be able to return to home. Will await callback from Benoit to discuss further.
--- NOTE | 2020-09-26 13:25 | PM.CCPN ---
Subjective Subjective Date of Service: 09/26/20 Interval History: 70-year-old morbidly obese female with obesity/hypoventilation and sleep apnea who just received her home CPAP device had witnessed vomiting and then diminished mental status and presented with acute on chronic hypercarbic and hypoxic respiratory failure very similar to her previous admission with extensive bibasilar consolidations on the basis of aspiration pneumonitis currently down to an FiO2 of 30% with a 10 L of minute ventilation doing very well on very minimal sedation awake cooperative with good cognitive function current CVP measurement down from 10 to currently 7 or 8 at this point in and she did have a secondary ileus so feedings were held and she is on 50 cc an hour of IV fluid In addition she developed an acute stage II renal failure of 0 which is stable with creatinine of 1.37 and she is non oliguric Critical Care Time (minutes): 35 Physical Exam Vital Signs: Vital Signs: Last Vital Signs Temp 10.4 F L 09/26/20 12:00 Pulse 87 09/26/20 12:00 Resp 16 09/26/20 12:00 BP 116/40 L 09/26/20 12:00 Pulse Ox 93 09/26/20 12:00 Body Mass Index 54.3 Const: Other: Cognitive function is good with no focal neurologic issues Abdomen is soft nontender no organomegaly Chest with bilateral ventilatory sounds no adventitious sounds Cardiac exam with good bilateral carotid upstrokes and bedside echo showing preserved systolic reserve Skin is intact Objective Data Labs CBC & Chem 7: 09/26/20 05:45 09/26/20 05:45 Labs: Laboratory Results - last 24 hr 09/26/20 09/26/20 09/26/20 05:45 05:45 05:45 WBC 17.2 H RBC 3.42 L Hgb 9.7 L Hct 29.6 L MCV 86.5 MCH 28.4 MCHC 32.8 RDW 15.2 Plt Count 212 MPV 11.4 Immature Gran % (Auto) 0.8 H Neut % (Auto) 84.0 H Lymph % (Auto) 11.7 L [place] % (Auto) 3.0 Eos % (Auto) 0.3 Baso % (Auto) 0.2 Lymph # (Auto) 2.0 [place] # (Auto) 0.5 Eos # (Auto) 0.1 Baso # (Auto) 0.0 Abs Immat Gran (auto) 0.14 H Absolute Neuts (auto) 14.5 H Absolute Nucleated RBC 0.000 Nucleated RBC % (auto) 0.0 PT 13.8 H INR 1.2 H APTT 28.3 VBG pH VBG pCO2 VBG pO2 VBG HCO3 VBG O2 Saturation VBG Base Excess Sodium 140 Potassium 3.9 Chloride 100 Carbon Dioxide 30 H Anion Gap 14 BUN 40 H Creatinine 1.37 Estim Creat Clear Calc 65.5 Estimated GFR 38 Random Glucose 122 H Calcium 7.7 L Phosphorus 3.9 Magnesium 1.9 09/26/20 09/26/20 05:48 08:17 WBC RBC Hgb Hct MCV MCH MCHC RDW Plt Count MPV Immature Gran % (Auto) Neut % (Auto) Lymph % (Auto) [place] % (Auto) Eos % (Auto) Baso % (Auto) Lymph # (Auto) [place] # (Auto) Eos # (Auto) Baso # (Auto) Abs Immat Gran (auto) Absolute Neuts (auto) Absolute Nucleated RBC Nucleated RBC % (auto) PT INR APTT VBG pH 7.41 7.45 H VBG pCO2 104 45 VBG pO2 39 58 VBG HCO3 67 H 31 H VBG O2 Saturation 67.0 88.0 VBG Base Excess 36.1 7.2 Sodium Potassium Chloride Carbon Dioxide Anion Gap BUN Creatinine Estim Creat Clear Calc Estimated GFR Random Glucose Calcium Phosphorus Magnesium Microbiology Microbiology Results: Microbiology 09/24/20 10:34 Blood - Venous Blood Culture - Preliminary No growth after 48 hours. 09/24/20 10:16 Blood - Venous Blood Culture - Preliminary No growth after 48 hours. 09/24/20 10:02 Urine Catheterized - Maciel Catheter Urine Culture - Final Pseudomonas aeruginosa Progress Note: A&P Assessment and plan (1) Acute hypercapnic respiratory failure: Status: Acute (2) Aspiration pneumonia: Status: Acute (3) Interstitial lung disease: Status: Acute (4) Morbid obesity: Status: Acute (5) Obstructive sleep apnea: Status: Acute (6) Obesity hypoventilation syndrome: Status: Acute Assessment and Plan: Doing beautifully and probably be ready to wean the by tomorrow but might need to be weaned to BiPAP and that remains to be seen Quality Stroke Does the patient have a stroke diagnosis?: No Reason for No Anti-thrombotic by Day Two: N/A - Med Ordered VTE Prior VTE?: No VTE Risk Level:: Medical - moderate - high VTE Device Contraindication: N/A - Device Ordered VTE Drug Contraindication: N/A - Med Ordered
--- NOTE | 2020-09-26 17:03 | PC.NURSE ---
Addendum entered by Amy Garcia RN 09/26/20 18:37: 17:30 received notification from MANAGER MASS that patient's BP and MAP were low, 85/35(55). Reported VS to Dr. Baker including temp 101.3F, HR 93. Fluid bolus of 1LNS ordered as well as initiation of Levophed to start at 0.01mcg/kg/min. Suctioned sputum GS+Cx ordered and obtained and 1g Vanco ordered and hung at 18:05 after sputum was obtained. Levophed with titrate order to achieve MAP 65wih SBP>100. Original Note: Patient cooperative on light sedation. Tmax 101.3F, MD aware. Lowered spontaneously throughout afternoon. Moderate insp/exp rhonchi noted, improved throughout the day. FiO2 increased from 30 to 40% d/t desat to mid 80s. Continues on Zosyn.
[2020-09-26] MEDS: 0.9 % Sodium Chloride 1,000 ML 999 ML IVCONT (17:57)
[2020-09-26] MEDS: vancomycin HCL 1,000 MG in 0.9 % Sodium Chloride 250 ML 270 MG IV (18:07)
[2020-09-26] MEDS: Dextrose 5 % and 0.45 % NaCl 1,000 ML 50 ML IVCONT (20:20)
[2020-09-26] MEDS: propofoL 1,000 MG/100 ML VIAL 18.12 MG IVCONT (21:59)
[2020-09-27] VITALS (33 sets, daily range): BP systolic 91–166; BP diastolic 35–74; PULSE 73–100; RESP 10–24; TEMP 37.2–38.1; O2SAT 86–98; BMI 52.9
[2020-09-27] MEDS: propofoL 1,000 MG/100 ML VIAL 22.65 MG IVCONT ×2 (03:44→07:19)
[2020-09-27] MEDS: Piperacillin Sodium/Tazobactam 4.5 GM in 0.9 % Sodium Chloride 100 ML IV (03:54)
[2020-09-27] MEDS: 0.9 % Sodium Chloride Flush 3 ML SYRINGE IVFLUSH ×3 (04:00→16:04)
[2020-09-27 05:26] LABS: MANUAL DIFF FLAG NO
[2020-09-27 05:29] LABS: Basophils Percent Auto 0.3 % (0-2); Eosinophils Absolute Auto 0.8 X10*3/uL (0.0-0.4); Eosinophils Percent Auto 4.8 % (0-4); Hematocrit 27.9 % (37-47); Hemoglobin 9.2 g/dl (12.0-16.0); Imm Gran Abs Auto 0.13 X10*3/uL (0.00-0.03); Imm Gran Pct Auto 0.8 % (0.0-0.4); Lymphocytes Absolute Auto 1.8 X10*3/uL (1.2-4.9); Lymphocytes Percent Auto 11.5 % (20-40); Mean Corpuscular Hemoglobin 28.9 pg (27.0-33.0); Mean Corpuscular Volume 87.7 fL (80-98); Mean Platelet Volume 10.4 fL (9.4-12.3); Monocytes Absolute Auto 0.5 X10*3/uL (0.1-1.2); Monocytes Percent Auto 3.1 % (2-11); Neutrophils Absolute Auto 12.5 X10*3/uL (2.0-8.3); Neutrophils Percent Auto 79.5 % (45-73); Platelet Count 197 X10*3/uL (160-400); Red Blood Count 3.18 X10*6/uL (4.20-5.50); Red Cell Distribution Width 15.1 % (11.0-16.0); White Blood Count 15.7 X10*3/uL (4.8-10.8)
[2020-09-27 05:32] LABS: VBG Base Excess 2.1 mmol/L; VBG HCO3 27 mmol/L (22-26); VBG pCO2 44 mmHg; VBG pH 7.39 (7.32-7.43); VBG pO2 55 mmHg
[2020-09-27 05:34] LABS: Venous Blood Gas Refer to POC result
[2020-09-27 05:37] LABS: INTERNATIONAL NORM RATIO 1.2 (0.9-1.1); Prothrombin Time 14.6 SEC (10.8-13.0)
[2020-09-27 05:39] LABS: Partial Thromboplastin Time 30.1 SEC (24.1-38.0)
[2020-09-27 05:55] LABS: Anion Gap 11 (12-20); Blood Urea Nitrogen 32 mg/dL (9-16); Calcium 7.5 mg/dL (8.4-10.2); Carbon Dioxide 29 mmol/L (22-29); Chloride 103 mmol/L (96-108); Creatinine Clr Calc Pharmacy 76.5; Estimated Glomerular Filt Rate 44; Glucose Random 125 mg/dL (60-115); Phosphorus 2.9 mg/dL (2.7-4.5); Potassium 3.4 mmol/L (3.3-5.1); Sodium 140 mmol/L (135-145)
[2020-09-27 05:56] LABS: Magnesium 1.8 mg/dL (1.6-2.6)
[2020-09-27] MEDS: Levothyroxine Sodium 100 MCG/5 ML VIAL 25 MCG IVPUSH (05:57)
[2020-09-27] MEDS: Heparin Sodium,Porcine 5,000 UNIT/ML VIAL 5000 UNIT SUBCUT ×3 (06:00→21:21)
[2020-09-27] MEDS: Pantoprazole Sodium 40 MG/10 ML VIAL IVPUSH (06:01)
[2020-09-27] MEDS: Albuterol/Iprat 2.5/0.5MG 3 ML AMPUL.NEB INHALE ×3 (07:41→15:47)
[2020-09-27] MEDS: Chlorhexidine Gluc Oral Rinse 15 ML MOUTHWASH BUCCAL (07:59)
[2020-09-27] MEDS: Albumin Human 25 % 100 ML IV ×3 (08:55→20:20)
[2020-09-27] MEDS: Ampicillin Sodium/Sulbactam Na 3 GM in 0.9 % Sodium Chloride 100 ML IV ×2 (08:55→16:44)
[2020-09-27] MEDS: Furosemide 200 MG in 0.9 % Sodium Chloride 80 ML IVCONT (09:05)
--- NOTE | 2020-09-27 09:44 | MHC.CLN ---
F/U TF ORDER CURRENTLY ON HOLD OGT SET TO SUCTON PT PENDING EXTUBATION TODAY PER MD WILL CHANGE DIET TO NPO FOLLOWING
[2020-09-27] MEDS: Racepinephrine HCL 0.5 ML VIAL.NEB INHALE (10:02)
--- NOTE | 2020-09-27 10:15 | PM.CCPN ---
Subjective Subjective Date of Service: 09/27/20 Interval History: 70-year-old lady with underlying morbid obesity, hypertension, asthma, MISSY/obesity hyperventilation, recently started on CPAP admitted on 09/24/2020 with acute hypoxic respiratory failure secondary to pulmonary aspiration requiring intubation and ventilatory support further complicated by aspiration pneumonitis versus pneumonia. Extubated 09/27/2020. No events overnight. Critical Care Time (minutes): 60 Physical Exam Vital Signs: Vital Signs: Last Vital Signs Temp 100.2 F 09/27/20 10:00 Pulse 88 09/27/20 10:12 Resp 19 09/27/20 10:00 BP 122/60 09/27/20 10:00 Pulse Ox 87 L 09/27/20 10:00 Body Mass Index 52.9 Const: General: no acute distress, alert and awake Nutritional Appearance: obese Eyes: Sclerae: sclerae normal EOM: EOMs intact bilaterally Neck: Neck: Yes no lymphadenopathy, Yes trachea midline and Yes supple Resp: Effort & Inspection: normal respiratory effort, no respiratory distress and other (Mild inspiratory stridor after extubation) Auscultation: crackles (Bibasilar) Cardio: Rate: regular rate Rhythm: regular rhythm Heart sounds: no gallops, no murmurs and no rubs GI: Palpation (GI): Soft to palpation and Other GI palpation findings present ( Nontender) Auscultation: normal bowel sounds Extrem: General: No clubbing, No cyanosis and Yes pedal edema (1+ bilateral) Objective Data Labs CBC & Chem 7: 09/27/20 05:15 09/27/20 05:15 Labs: Laboratory Results - last 24 hr 09/27/20 09/27/20 09/27/20 05:15 05:15 05:15 WBC 15.7 H RBC 3.18 L Hgb 9.2 L Hct 27.9 L MCV 87.7 MCH 28.9 MCHC 33.0 RDW 15.1 Plt Count 197 MPV 10.4 Immature Gran % (Auto) 0.8 H Neut % (Auto) 79.5 H Lymph % (Auto) 11.5 L [place] % (Auto) 3.1 Eos % (Auto) 4.8 H Baso % (Auto) 0.3 Lymph # (Auto) 1.8 [place] # (Auto) 0.5 Eos # (Auto) 0.8 H Baso # (Auto) 0.0 Abs Immat Gran (auto) 0.13 H Absolute Neuts (auto) 12.5 H Absolute Nucleated RBC 0.000 Nucleated RBC % (auto) 0.0 PT 14.6 H INR 1.2 H APTT 30.1 VBG pH VBG pCO2 VBG pO2 VBG HCO3 VBG O2 Saturation VBG Base Excess Sodium 140 Potassium 3.4 Chloride 103 Carbon Dioxide 29 Anion Gap 11 L BUN 32 H Creatinine 1.22 Estim Creat Clear Calc 76.5 Estimated GFR 44 Random Glucose 125 H Calcium 7.5 L Phosphorus 2.9 Magnesium 09/27/20 09/27/20 05:15 05:25 WBC RBC Hgb Hct MCV MCH MCHC RDW Plt Count MPV Immature Gran % (Auto) Neut % (Auto) Lymph % (Auto) [place] % (Auto) Eos % (Auto) Baso % (Auto) Lymph # (Auto) [place] # (Auto) Eos # (Auto) Baso # (Auto) Abs Immat Gran (auto) Absolute Neuts (auto) Absolute Nucleated RBC Nucleated RBC % (auto) PT INR APTT VBG pH 7.39 VBG pCO2 44 VBG pO2 55 VBG HCO3 27 H VBG O2 Saturation 86.0 VBG Base Excess 2.1 Sodium Potassium Chloride Carbon Dioxide Anion Gap BUN Creatinine Estim Creat Clear Calc Estimated GFR Random Glucose Calcium Phosphorus Magnesium 1.8 Microbiology Microbiology Results: Microbiology 09/26/20 17:55 Sputum - Suctioned Gram Stain - Final 09/26/20 17:55 Sputum - Suctioned Sputum Culture - Preliminary No growth to date. 09/24/20 10:34 Blood - Venous Blood Culture - Preliminary No growth after 48 hours. 09/24/20 10:16 Blood - Venous Blood Culture - Preliminary No growth after 48 hours. 09/24/20 10:02 Urine Catheterized - Maciel Catheter Urine Culture - Final Pseudomonas aeruginosa Progress Note: A&P Assessment and plan (1) Acute respiratory failure with hypoxia and hypercapnia: Status: Acute Assessment and Plan: Assessment: 70-year-old lady with underlying obesity, MISSY, obesity hypoventilation admitted with acute hypoxic and hypercapnic respiratory failure secondary to pulmonary aspiration requiring intubation and ventilatory support. Plan: Neuro: No acute issues. Cardiac: Underlying diastolic dysfunction. Improving with diuresis. Underlying hypertension. Pulmonary: Acute hypoxic and hypercapnic respiratory failure requiring intubation and ventilatory support on admission, extubated 09/27/2020. Underlying obstructive sleep apnea, obesity hypoventilation syndrome, and asthma. Continue with nocturnal nasal CPAP. Renal: No acute issues. Endo: No acute issues. GI: No acute issues. ID: Aspiration pneumonitis versus pneumonia. Empirically covered with Unasyn. Heme/Onc: No acute issues. Psych: No acute issues. Miscellaneous: No acute issues. Prophylaxis: Heparin Diet: Pending swallow evaluation Critical care time spent: 60 minutes (2) Aspiration pneumonia: Status: Acute (3) Morbid obesity: Status: Acute (4) Obstructive sleep apnea: Status: Acute (5) Obesity hypoventilation syndrome: Status: Acute (6) Diastolic dysfunction: Status: Acute Quality Stroke Does the patient have a stroke diagnosis?: No Reason for No Anti-thrombotic by Day Two: N/A - Med Ordered VTE Prior VTE?: No VTE Risk Level:: Medical - moderate - high VTE Device Contraindication: N/A - Device Ordered VTE Drug Contraindication: N/A - Med Ordered
--- NOTE | 2020-09-27 15:51 | MHC.CM.PN ---
Patient remains in ICU. Extubated 09/27. Patient will need physical therapy eval for home safety when medically stable. Continue to monitor for d/c needs.
--- NOTE | 2020-09-27 16:48 | PC.NURSE ---
Addendum entered by July Dean RN 09/27/20 19:08: 1900 - This RN noticed on monitor sat 84% - Assessed patient - patient vomited approx 30cc small amount of bilious secretions. Patient reports feeling sick to my stomach - SILVERER Ksenia notified. Handoff given to Chapin Parrish Original Note: S/E Temp down to 99.0, WBC down to 15.7 A&O x3, answering questions appropriately SR, HR 80-90's, no ectopy Levophed gtt titrated off, SBP 120-130's Dressing changed to R IJ TLC Generalized 2+ pitting edema Albumin 100cc IV x4 ordered and administered Lasix gtt started at 5mg/hr w/ NS carrier LS rhonchi throughout Extubated at 0930 to Venti Mask 55% Patient now down to 6L NC sating low's 90's Intermittent moist productive cough Thick yellow sputum Preliminary SC negative ABX changed from Zosyn to Unasyn 3g Abdomen large, hypoactive BS Failed nursing swallow eval - NPO Pending Speech eval for tomorrow 09/28 No BM Maciel - urine o/p [id number] 1810cc, yellow D5 / NS discontinued Skin W/D/P - no skin integrity concerns Air loss attachment & prevlon system in place Patient bathed, repo q2hr Family updated
[2020-09-27] MEDS: ondansetron HCL 4 MG/2 ML VIAL IVPUSH (19:16)
[2020-09-27] MEDS: Glycerin Adult SUPP.RECT 1 SUPP PR (19:42)
[2020-09-27 21:37] LABS: Anion Gap 16 (12-20); Blood Urea Nitrogen 28 mg/dL (9-16); Calcium 7.9 mg/dL (8.4-10.2); Carbon Dioxide 30 mmol/L (22-29); Chloride 102 mmol/L (96-108); Creatinine Clr Calc Pharmacy 79.1; Estimated Glomerular Filt Rate 46; Glucose Random 81 mg/dL (60-115); Potassium 3.1 mmol/L (3.3-5.1); Sodium 145 mmol/L (135-145)
[2020-09-27] MEDS: Potassium Chloride/H20 40 MEQ/100 ML PIGGYBACK 100 MEQ IV (22:00)
[2020-09-27] MEDS: Calcium Gluconate/NaCl,Iso-Osm 1 GM/50 ML PLAST..BAG IV (22:00)
[2020-09-28] VITALS (29 sets, daily range): BP systolic 127–162; BP diastolic 42–76; PULSE 80–94; RESP 14–91; TEMP 37–37.7; O2SAT 90–97; BMI 53.2
[2020-09-28] MEDS: 0.9 % Sodium Chloride Flush 3 ML SYRINGE IVFLUSH ×4 (00:41→23:28)
[2020-09-28] MEDS: Ampicillin Sodium/Sulbactam Na 3 GM in 0.9 % Sodium Chloride 100 ML IV ×3 (00:44→16:00)
[2020-09-28] MEDS: Albumin Human 25 % 100 ML IV (01:51)
[2020-09-28] MEDS: Acetaminophen Supp 650 MG SUPP.RECT PR (02:25)
--- NOTE | 2020-09-28 04:58 | PC.NURSE ---
Patient repositioned, O2 sats decreased to 70's. O2 titrated up to 15L [place]. Patient had difficulty recovering non rebreather applied. O2 sats up to 96-98%. after staying on non rebreather for some time. Patient switched back to [place] 8L . Will continue to monitor.
[2020-09-28 05:35] LABS: VBG Base Excess 6.8 mmol/L; VBG HCO3 32 mmol/L (22-26); VBG pCO2 54 mmHg; VBG pH 7.39 (7.32-7.43); VBG pO2 53 mmHg
[2020-09-28 05:38] LABS: MANUAL DIFF FLAG NO
[2020-09-28 05:42] LABS: Basophils Percent Auto 0.2 % (0-2); Eosinophils Absolute Auto 0.4 X10*3/uL (0.0-0.4); Eosinophils Percent Auto 2.6 % (0-4); Hematocrit 26.4 % (37-47); Hemoglobin 8.7 g/dl (12.0-16.0); Imm Gran Abs Auto 0.23 X10*3/uL (0.00-0.03); Imm Gran Pct Auto 1.4 % (0.0-0.4); Lymphocytes Absolute Auto 1.3 X10*3/uL (1.2-4.9); Lymphocytes Percent Auto 7.7 % (20-40); Mean Corpuscular Hemoglobin 29.1 pg (27.0-33.0); Mean Corpuscular Volume 88.3 fL (80-98); Mean Platelet Volume 10.5 fL (9.4-12.3); Monocytes Absolute Auto 0.7 X10*3/uL (0.1-1.2); Monocytes Percent Auto 4.5 % (2-11); Neutrophils Absolute Auto 13.8 X10*3/uL (2.0-8.3); Neutrophils Percent Auto 83.6 % (45-73); Platelet Count 169 X10*3/uL (160-400); Red Blood Count 2.99 X10*6/uL (4.20-5.50); Red Cell Distribution Width 14.7 % (11.0-16.0); White Blood Count 16.5 X10*3/uL (4.8-10.8)
[2020-09-28 05:45] LABS: Venous Blood Gas Refer to POC result
[2020-09-28] MEDS: Heparin Sodium,Porcine 5,000 UNIT/ML VIAL 5000 UNIT SUBCUT ×3 (06:02→21:03)
[2020-09-28] MEDS: Levothyroxine Sodium 100 MCG/5 ML VIAL 25 MCG IVPUSH (06:03)
[2020-09-28 06:11] LABS: Albumin Level 3.5 g/dL (3.5-5.0); Anion Gap 16 (12-20); Blood Urea Nitrogen 29 mg/dL (9-16); Calcium 8.3 mg/dL (8.4-10.2); Carbon Dioxide 30 mmol/L (22-29); Chloride 103 mmol/L (96-108); Creatinine Clr Calc Pharmacy 75.3; Estimated Glomerular Filt Rate 44; Glucose Random 73 mg/dL (60-115); Magnesium 1.8 mg/dL (1.6-2.6); Phosphorus 3.8 mg/dL (2.7-4.5); Potassium 3.3 mmol/L (3.3-5.1); Sodium 146 mmol/L (135-145)
[2020-09-28] MEDS: Albuterol/Iprat 2.5/0.5MG 3 ML AMPUL.NEB INHALE ×5 (07:44→23:15)
[2020-09-28] MEDS: Furosemide 40 MG/4 ML VIAL IVPUSH (08:33)
[2020-09-28] MEDS: acetaZOLAMIDE sodium 500 MG VIAL 250 MG IVPUSH ×2 (08:33→21:04)
[2020-09-28] MEDS: Potassium Chloride/H20 40 MEQ/100 ML PIGGYBACK 100 MEQ IV ×2 (08:33→19:52)
[2020-09-28] MEDS: Magnesium Sulfate/H2O 2 GM/50 ML PIGGYBACK IV (08:33)
--- NOTE | 2020-09-28 09:48 | MHC.SL.SWA ---
Speech Pathologist Impression: Risk of Aspiration Oralpharyngeal Dysphagia Risk of Aspiration Due to: History of Pneumonia Hx of Recent Extubation Dysphasia Diet Status: No Change Liquid Consistency and Strategies for Safe Swallow: Liquid Intake Recommendation: NPO Solid Food Consistency: Dietary Recommendations: NPO Oral Medication Intake: NPO Supervision While Eating and Drinking for Safe Swallow: PO with PROCESS DEVELOPMENT MANAGER Swallowing Recommended Treatments: Compens. Strategy Educat. Recommendation for Speech: Inpatient Speech Therapy Comment: Overt s/s of aspiration. Recommend continue frequent oral care and keep head of bed elevated at least 30 degrees to reduce risk of microaspiration. Luster Applicator Clinican/Clinical Fellow: No Supervisory Statement: I have reviewed and agree with the student/clinical fellow's documentation: N/A Speech Language Pathologist: Hermelinda Trevino M.A., CCC-PROCESS DEVELOPMENT MANAGER
--- NOTE | 2020-09-28 10:12 | MHC.CLN ---
F/U PT EXTUBATED 09/27 MANAGER SOCIAL MEDIA CONTINUES TO RECOMMEND NPO FOLLOWING
--- NOTE | 2020-09-28 10:28 | P.PNCC_ITS ---
Subjective Subjective Date of Service: 09/28/20 Interval History: 70-year-old lady with underlying morbid obesity, hypertension, asthma, MISSY/obesity hyperventilation, recently started on CPAP admitted on 09/24/2020 with acute hypoxic respiratory failure secondary to pulmonary aspiration requiring intubation and ventilatory support further complicated by aspiration pneumonitis versus pneumonia. Extubated 09/27/2020. Overnight with fluctuating FiO2 requirements, up to 10 L. Diuresed 2.5 L. Failed speech swallow evaluation this a.m.. Critical Care Time (minutes): 45 Physical Exam Vital Signs: Vital Signs: Last Vital Signs Temp 98.6 F 09/28/20 09:00 Pulse 85 09/28/20 10:00 Resp 18 09/28/20 10:00 BP 139/65 09/28/20 10:00 Pulse Ox 91 L 09/28/20 10:00 Body Mass Index 53.2 Const: General: no acute distress, alert and awake Nutritional Appearance: obese Eyes: Sclerae: sclerae normal EOM: EOMs intact bilaterally Neck: Neck: Yes no lymphadenopathy, Yes trachea midline and Yes supple Resp: Effort & Inspection: normal respiratory effort and no respiratory di stress Auscultation: crackles (Bibasilar) Cardio: Rate: regular rate Rhythm: regular rhythm Heart sounds: no gallops, no murmurs and no rubs GI: Palpation (GI): Soft to palpation and Other GI palpation findings present ( Nontender) Auscultation: normal bowel sounds Extrem: General: No clubbing, No cyanosis and Yes pedal edema (1+ bilateral) Objective Data Labs CBC & Chem 7: 09/28/20 05:30 09/28/20 05:30 Labs: Laboratory Results - last 24 hr 09/27/20 09/28/20 09/28/20 20:55 05:29 05:30 WBC 16.5 H RBC 2.99 L Hgb 8.7 L Hct 26.4 L MCV 88.3 MCH 29.1 MCHC 33.0 RDW 14.7 Plt Count 169 MPV 10.5 Immature Gran % (Auto) 1.4 H Neut % (Auto) 83.6 H Lymph % (Auto) 7.7 L [place] % (Auto) 4.5 Eos % (Auto) 2.6 Baso % (Auto) 0.2 Lymph # (Auto) 1.3 [place] # (Auto) 0.7 Eos # (Auto) 0.4 Baso # (Auto) 0.0 Abs Immat Gran (auto) 0.23 H Absolute Neuts (auto) 13.8 H Absolute Nucleated RBC 0.000 Nucleated RBC % (auto) 0.0 VBG pH 7.39 VBG pCO2 54 VBG pO2 53 VBG HCO3 32 H VBG O2 Saturation 84.0 VBG Base Excess 6.8 Sodium 145 Potassium 3.1 L Chloride 102 Carbon Dioxide 30 H Anion Gap 16 BUN 28 H Creatinine 1.16 Estim Creat Clear Calc 79.1 Estimated GFR 46 Random Glucose 81 D Calcium 7.9 L Phosphorus Magnesium Albumin 09/28/20 05:30 WBC RBC Hgb Hct MCV MCH MCHC RDW Plt Count MPV Immature Gran % (Auto) Neut % (Auto) Lymph % (Auto) [place] % (Auto) Eos % (Auto) Baso % (Auto) Lymph # (Auto) [place] # (Auto) Eos # (Auto) Baso # (Auto) Abs Immat Gran (auto) Absolute Neuts (auto) Absolute Nucleated RBC Nucleated RBC % (auto) VBG pH VBG pCO2 VBG pO2 VBG HCO3 VBG O2 Saturation VBG Base Excess Sodium 146 H Potassium 3.3 Chloride 103 Carbon Dioxide 30 H Anion Gap 16 BUN 29 H Creatinine 1.22 Estim Creat Clear Calc 75.3 Estimated GFR 44 Random Glucose 73 Calcium 8.3 L Phosphorus 3.8 Magnesium 1.8 Albumin 3.5 Microbiology Microbiology Results: Microbiology 09/26/20 17:55 Sputum - Suctioned Gram Stain - Final 09/26/20 17:55 Sputum - Suctioned Sputum Culture - Preliminary No growth to date. 09/24/20 10:34 Blood - Venous Blood Culture - Preliminary No growth after 48 hours. 09/24/20 10:16 Blood - Venous Blood Culture - Preliminary No growth after 48 hours. 09/24/20 10:02 Urine Catheterized - Maciel Catheter Urine Culture - Final Pseudomonas aeruginosa Progress Note: A&P Assessment and plan (1) Diastolic dysfunction: Status: Acute Assessment and Plan: Assessment: 70-year-old lady with underlying obesity, MISSY, obesity hypoventilat ion admitted with acute hypoxic and hypercapnic respiratory failure secondary to pulmonary aspiration requiring intubation and ventilatory support. Plan: Neuro: No acute issues. Cardiac: Underlying diastolic dysfunction. Improving with diuresis. Underlying hypertension. Pulmonary: Acute hypoxic and hypercapnic respiratory failure requiring intubation and ventilatory support on admission, extubated 09/27/2020. With fluctuating FiO2 requirements likely secondary to nocturnal recurrent aspi ration. Underlying obstructive sleep apnea, obesity hypoventilation syndrome, and asthma. Continue with nocturnal nasal CPAP as tolerated. Renal: No acute issues. Endo: No acute issues. GI: No acute issues. ID: Aspiration pneumonitis versus pneumonia. Empirically covered with Unasyn. Heme/Onc: No acute issues. Psych: No acute issues. Miscellaneous: No acute issues. Prophylaxis: Heparin Diet: Pending swallow evaluation Critical care time spent: 45 minutes (2) Hypertension: Status: Acute (3) Asthma: Status: Acute (4) Recurrent aspiration events: Status: Acute (5) Obstructive sleep apnea: Status: Acute (6) Obesity hypoventilation syndrome: Status: Acute Quality Stroke Does the patient have a stroke diagnosis?: No Reason for No Anti-thrombotic by Day Two: N/A - Med Ordered VTE Prior VTE?: No VTE Risk Level:: Medical - moderate - high VTE Device Contraindication: N/A - Device Ordered VTE Drug Contraindication: N/A - Med Ordered
--- NOTE | 2020-09-28 17:34 | PC.NURSE ---
S/E Low grade temp 99.7 - WBC 16.5 - MD aware A&o x4, pupils 3mm, PERRLA SR w/ occasional PACs Generalized edema Lasix gtt discontinued Started on Lasix 40mg IVP R IJ TLC patent Increased oxygen requirements w/ activity & repositioning Slowly titrating O2 needs down Currently on [place] 4-8L - sPo2 low 90's LS initially rhonchi at beginning of shift - currently dim throughout No longer having frequent moist cough Continued on Unasyn Abdomen soft, nontender Failed speech eval - will be re-evaluate tomorrow Moderate brown formed BM in AM Urine o/p 1750cc throughout shift No skin integrity concerns Bathed, repo q2hr Air loss bed & Prevlon pad in place Family updated
[2020-09-28 18:43] LABS: Anion Gap 16 (12-20); Blood Urea Nitrogen 32 mg/dL (9-16); Calcium 8.5 mg/dL (8.4-10.2); Carbon Dioxide 33 mmol/L (22-29); Chloride 102 mmol/L (96-108); Estimated Glomerular Filt Rate 41; Glucose Random 76 mg/dL (60-115); Potassium 3.3 mmol/L (3.3-5.1); Sodium 148 mmol/L (135-145)
[2020-09-29] VITALS (29 sets, daily range): BP systolic 132–169; BP diastolic 40–116; PULSE 76–97; RESP 14–24; TEMP -17.7–37.7; O2SAT 85–97; BMI 50.8
[2020-09-29] MEDS: Furosemide 40 MG/4 ML VIAL IVPUSH ×3 (00:03→20:21)
[2020-09-29] MEDS: Ampicillin Sodium/Sulbactam Na 3 GM in 0.9 % Sodium Chloride 100 ML IV ×2 (00:03→08:04)
[2020-09-29] MEDS: ondansetron HCL 4 MG/2 ML VIAL IVPUSH ×2 (01:32→10:01)
[2020-09-29 05:33] LABS: MANUAL DIFF FLAG NO
[2020-09-29 05:40] LABS: Basophils Absolute Auto 0.1 X10*3/uL (0.0-0.2); Basophils Percent Auto 0.3 % (0-2); Eosinophils Absolute Auto 0.2 X10*3/uL (0.0-0.4); Hematocrit 31.3 % (37-47); Hemoglobin 9.9 g/dl (12.0-16.0); Imm Gran Abs Auto 0.79 X10*3/uL (0.00-0.03); Imm Gran Pct Auto 4.6 % (0.0-0.4); Lymphocytes Absolute Auto 1.4 X10*3/uL (1.2-4.9); Lymphocytes Percent Auto 7.9 % (20-40); Mean Corpuscular HGB Conc 31.6 g/dl (31.0-35.0); Mean Corpuscular Hemoglobin 28.5 pg (27.0-33.0); Mean Corpuscular Volume 90.2 fL (80-98); Mean Platelet Volume 10.6 fL (9.4-12.3); Monocytes Absolute Auto 1.1 X10*3/uL (0.1-1.2); Monocytes Percent Auto 6.4 % (2-11); Neutrophils Absolute Auto 13.8 X10*3/uL (2.0-8.3); Neutrophils Percent Auto 79.8 % (45-73); Platelet Count 229 X10*3/uL (160-400); Red Blood Count 3.47 X10*6/uL (4.20-5.50); Red Cell Distribution Width 14.7 % (11.0-16.0); White Blood Count 17.3 X10*3/uL (4.8-10.8)
--- NOTE | 2020-09-29 05:46 | PC.NURSE ---
CARE ASSUMED 23;15...AWAKE..ALERT...SPEECH CLEAR...VAGUE RESPONSES TO QUESTIONS AT TIME...O2 8 L/M VIA ANDERSON CANNULA...SAO2 91-92%....LOOSE NON-PRODUCTIVE COUGH..DIFFUSE FINE CRACKLES LOWER 2/3 BILATERALLY...DESATS TO 80% WITH HOB LOWERED FOR REPOSITIONING..(+) ORTHOPNEA..ICU ENFORCEMENT SAFETY OFFICER & PHD INTERN PRESENT...LASIX 40 MG IV GIVEN..DIURESED LARGE AMOUNT OVERNIGHT..BP STABLE...C/O NAUSEA...ZOFRAN IV X1 GIVEN WITH RELIEF...REMAINS INTERMITTANTLY ANXIOUS...NPO D/T FAILED SWALLOW EVAL...C/O HEADACHE...ICE PACKS WITH RELIEF...NV TYLENOL ORDERED BUT DECLINED BY PATIENT...DECREASED SAO2 THIS AM....O2 55% VENTI-MASK WITH SAO2 86%...100% NRB MASK WITH SAO2 95-96%...UPDRAFT ORDERED/GIVEN...PLACED ON NASAL CPAP 8CM & FIO2 35% PER ENFORCEMENT SAFETY OFFICER...TV>500...SAO2 90-92%...PER ENFORCEMENT SAFETY OFFICER SAO2 GOAL 88% OR >...FOR AM CXR
[2020-09-29 06:02] LABS: Venous Blood Gas Refer to POC result
[2020-09-29 06:04] LABS: VBG HCO3 34 mmol/L (22-26); VBG pCO2 58 mmHg; VBG pH 7.37 (7.32-7.43); VBG pO2 44 mmHg
[2020-09-29 06:06] LABS: Albumin Level 3.6 g/dL (3.5-5.0); Anion Gap 20 (12-20); Blood Urea Nitrogen 35 mg/dL (9-16); Calcium 8.8 mg/dL (8.4-10.2); Carbon Dioxide 30 mmol/L (22-29); Chloride 100 mmol/L (96-108); Creatinine Clr Calc Pharmacy 73.7; Estimated Glomerular Filt Rate 43; Glucose Random 89 mg/dL (60-115); Magnesium 2.1 mg/dL (1.6-2.6); Phosphorus 4.7 mg/dL (2.7-4.5); Potassium 3.3 mmol/L (3.3-5.1); Sodium 147 mmol/L (135-145)
[2020-09-29] MEDS: Levothyroxine Sodium 100 MCG/5 ML VIAL 25 MCG IVPUSH (06:32)
[2020-09-29] MEDS: Heparin Sodium,Porcine 5,000 UNIT/ML VIAL 5000 UNIT SUBCUT ×3 (06:33→20:21)
[2020-09-29] MEDS: Albuterol/Iprat 2.5/0.5MG 3 ML AMPUL.NEB INHALE ×4 (07:56→19:38)
[2020-09-29] MEDS: 0.9 % Sodium Chloride Flush 3 ML SYRINGE IVFLUSH ×3 (08:03→20:22)
[2020-09-29] MEDS: acetaZOLAMIDE sodium 500 MG VIAL 250 MG IVPUSH ×2 (08:03→20:21)
[2020-09-29] MEDS: Potassium Chloride/H20 40 MEQ/100 ML PIGGYBACK 100 MEQ IV (08:03)
--- NOTE | 2020-09-29 10:17 | MHC.CM.PN ---
Pt extubated and tolerating intermittent CPAP: continues on Atb and diuresis - may be able to transfer to [facility] today: Clinical updates sent to [facility] - awaiting PT eval.
--- NOTE | 2020-09-29 10:27 | PM.CCPN ---
Subjective Subjective Date of Service: 09/29/20 Interval History: 70-year-old lady with underlying morbid obesity, hypertension, asthma, MISSY/obesity hyperventilation, recently started on CPAP admitted on 09/24/2020 with acute hypoxic respiratory failure secondary to pulmonary aspiration requiring intubation and ventilatory support further complicated by aspiration pneumonitis versus pneumonia. Extubated 09/27/2020. Continues with fluctuating FiO2 requirements, additional -3 L over the last 24 hours. FiO2 requirements are improving. Critical Care Time (minutes): 0 Physical Exam Vital Signs: Vital Signs: Last Vital Signs Temp 99.3 F 09/29/20 09:00 Pulse 92 09/29/20 09:00 Resp 18 09/29/20 09:00 BP 159/66 H 09/29/20 09:00 Pulse Ox 89 L 09/29/20 09:00 Body Mass Index 50.8 Const: General: no acute distress, alert and awake Nutritional Appearance: obese Eyes: Sclerae: sclerae normal EOM: EOMs intact bilaterally Neck: Neck: Yes no lymphadenopathy, Yes trachea midline and Yes supple Resp: Effort & Inspection: normal respiratory effort and no respiratory distress Auscultation: crackles (Bibasilar) Cardio: Rate: regular rate Rhythm: regular rhythm Heart sounds: no gallops, no murmurs and no rubs GI: Palpation (GI): Soft to palpation and Other GI palpation findings present ( Nontender) Auscultation: normal bowel sounds Extrem: General: No clubbing, No cyanosis and Yes pedal edema (1+ bilateral) Objective Data Labs CBC & Chem 7: 09/29/20 05:30 09/29/20 05:30 Labs: Laboratory Results - last 24 hr 09/28/20 09/29/20 09/29/20 18:00 05:30 05:30 WBC 17.3 H RBC 3.47 L Hgb 9.9 L Hct 31.3 L MCV 90.2 MCH 28.5 MCHC 31.6 RDW 14.7 Plt Count 229 D MPV 10.6 Immature Gran % (Auto) 4.6 H Neut % (Auto) 79.8 H Lymph % (Auto) 7.9 L [place] % (Auto) 6.4 Eos % (Auto) 1.0 Baso % (Auto) 0.3 Lymph # (Auto) 1.4 [place] # (Auto) 1.1 Eos # (Auto) 0.2 Baso # (Auto) 0.1 Abs Immat Gran (auto) 0.79 H Absolute Neuts (auto) 13.8 H Absolute Nucleated RBC 0.000 Nucleated RBC % (auto) 0.0 VBG pH VBG pCO2 VBG pO2 VBG HCO3 VBG O2 Saturation VBG Base Excess Sodium 148 H 147 H Potassium 3.3 3.3 Chloride 102 100 Carbon Dioxide 33 H 30 H Anion Gap 16 20 BUN 32 H 35 H Creatinine 1.28 1.25 Estim Creat Clear Calc 72.0 73.7 Estimated GFR 41 43 Random Glucose 76 89 Calcium 8.5 8.8 Phosphorus 4.7 H Magnesium 2.1 Albumin 3.6 09/29/20 05:55 WBC RBC Hgb Hct MCV MCH MCHC RDW Plt Count MPV Immature Gran % (Auto) Neut % (Auto) Lymph % (Auto) [place] % (Auto) Eos % (Auto) Baso % (Auto) Lymph # (Auto) [place] # (Auto) Eos # (Auto) Baso # (Auto) Abs Immat Gran (auto) Absolute Neuts (auto) Absolute Nucleated RBC Nucleated RBC % (auto) VBG pH 7.37 VBG pCO2 58 VBG pO2 44 VBG HCO3 34 H VBG O2 Saturation 73.0 VBG Base Excess 8.0 Sodium Potassium Chloride Carbon Dioxide Anion Gap BUN Creatinine Estim Creat Clear Calc Estimated GFR Random Glucose Calcium Phosphorus Magnesium Albumin Microbiology Microbiology Results: Microbiology 09/26/20 17:55 Sputum - Suctioned Gram Stain - Final 09/26/20 17:55 Sputum - Suctioned Sputum Culture - Final No growth. 09/24/20 10:34 Blood - Venous Blood Culture - Preliminary No growth after 48 hours. 09/24/20 10:16 Blood - Venous Blood Culture - Preliminary No growth after 48 hours. 09/24/20 10:02 Urine Catheterized - Maciel Catheter Urine Culture - Final Pseudomonas aeruginosa Progress Note: A&P Assessment and plan (1) Recurrent aspiration events: Status: Acute Assessment and Plan: Assessment: 70-year-old lady with underlying obesity, MISSY, obesity hypoventilation admitted with acute hypoxic and hypercapnic respiratory failure secondary to pulmonary aspiration requiring intubation and ventilatory support. Plan: Neuro: No acute issues. Cardiac: Underlying diastolic dysfunction. Improving with diuresis. Underlying hypertension. Pulmonary: Acute hypoxic and hypercapnic respiratory failure requiring intubation and ventilatory support on admission, extubated 09/27/2020. With fluctuating FiO2 requirements likely secondary to nocturnal recurrent aspiration and underlying diastolic dysfunction. Underlying obstructive sleep apnea, obesity hypoventilation syndrome, and asthma. Continue with nocturnal nasal CPAP as tolerated. Renal: No acute issues. Endo: No acute issues. GI: No acute issues. ID: Aspiration pneumonia, improving with Unasyn. Heme/Onc: No acute issues. Psych: No acute issues. Miscellaneous: No acute issues. Prophylaxis: Heparin Diet: Pending swallow evaluation Critical care time spent: 45 minutes (2) Diastolic dysfunction: Status: Acute (3) Hypertension: Status: Acute (4) Asthma: Status: Acute (5) Acute respiratory failure with hypoxia and hypercapnia: Status: Acute (6) Aspiration pneumonia: Status: Acute (7) Obstructive sleep apnea: Status: Acute (8) Obesity hypoventilation syndrome: Status: Acute Quality Stroke Does the patient have a stroke diagnosis?: No Reason for No Anti-thrombotic by Day Two: N/A - Med Ordered VTE Prior VTE?: No VTE Risk Level:: Medical - moderate - high VTE Device Contraindication: N/A - Device Ordered VTE Drug Contraindication: N/A - Med Ordered
[2020-09-29] MEDS: chlordiazePOXIDE HCl 5 MG CAPSULE 10 MG PO (10:50)
[2020-09-29] MEDS: levoFLOXacin/D5W 750 MG/150 ML PIGGYBACK 100 MG IV (11:21)
[2020-09-29] MEDS: Acetaminophen 325 MG TABLET 650 MG PO ×3 (12:12→23:27)
--- NOTE | 2020-09-29 12:19 | MHC.SL.DTX ---
Pre-Treatment Diet: NPO Subjective: Changes made to current diet?: Yes Dysphasia Diet Status: UPGRADE Liquid Consistency and Strategies: Liquid Intake Recommendation: Pudding Thick Compensatory Strategies for Safe Swallow: Liquids by Teaspoon Only Compensatory Strategies for Safe Swallow(b): Sitting Upright (90 deg) Liquids from Spoon Alternate Liquids/Solids Oral Check Solid Food Consistency: Dietary Recommendations: Pureed (NDD1) Additional Modifications to Solids: Oral Medication Intake: Crushed with Puree Strategies and Precautions to be Taken for Safe Swallow: Compensatory Swallowing Status: Sitting Upright (90 deg) Liquids from Spoon Alternate Liquids/Solids Oral Check Supervision While Eating and/Drinking: Total Assistance Foods to Avoid: Swallowing Recommended Treatments: Compens. Strategy Educat. Level of Impact on: Daily activities: Severe Interpersonal interactions: Mild Education: None Employment: None Community: Severe Prognosis for Improvement: Fair Recommendation for Speech: Inpatient Speech Therapy Comment: Pt is very anxious about swallowing. Limited PO intake during trials with RACK ROOM WORKER. Recommend continue frequent oral care and keep head of bed elevated at least 30 degrees to reduce risk of microaspiration. Frequency/Duration: Date Range for Service Req: Timeline to reassess: Additional Comments: Treatment: Pt was seen this morning for PO trials. Pt accepted limited PO trials from RACK ROOM WORKER. Per RN, pt is very anxious about swallowing right now. Pt tolerated trace amount of water via tsp with no overt s/s aspiration. When given 1/2 tsp sip of thin liquid, delayed cough noted in which pt's O2 sats dropped to mid 80's. Per RN, this is typical for pt. RN at bedside when RACK ROOM WORKER trialed pureed solids. Pt tolerated trace amounts of pureed solids with no overt s/s aspiration and complete oral clearance. Pt administered meds crushed in pudding. Pt tolerated without difficulty. Pt accepted trial of nectar thick liquids in which she produced immediate wet cough. Further PO trials discontinued per pt request. Assessment: Mixing Supervisor Clinican/Clinical Fellow: Yes: Rosa Latif M.A., -RACK ROOM WORKER Supervisory Statement: I have reviewed and agree with the student/clinical fellow's documentation: N/A Speech Language Pathologist: Hermelinda Trevino M.A., [facility]-RACK ROOM WORKER
--- NOTE | 2020-09-29 13:14 | MHC.CLN ---
F/U DIET ADVANCED PER OCCUPATIONAL SAFETY AND HEALTH MANAGER REC TO PUREED WITH PUDDING THICK LIQUIDS TODAY NOTED FRAGILE SKIN MONITOR PO INTAKE CLOSELY
--- NOTE | 2020-09-29 16:03 | PC.NURSE ---
Right IJ TLC D/C'd, pt tolerated well. #20 PIV placed to right forearm with positive blood return. Pt tolerated well.
[2020-09-29] MEDS: traZODone HCL 25 MG HALFTAB PO (22:00)
[2020-09-29] MEDS: Albuterol/Iprat 2.5/0.5MG 3 ML AMPUL.NEB 1.5 ML INHALE (23:55)
[2020-09-30] VITALS (20 sets, daily range): BP systolic 138–182; BP diastolic 56–80; PULSE 75–91; RESP 14–24; TEMP 36.6–37.7; O2SAT 87–96; BMI 50.9
[2020-09-30] MEDS: Levothyroxine Sodium 100 MCG/5 ML VIAL 25 MCG IVPUSH (05:26)
[2020-09-30] MEDS: Heparin Sodium,Porcine 5,000 UNIT/ML VIAL 5000 UNIT SUBCUT ×3 (05:27→21:44)
[2020-09-30 05:36] LABS: Hematocrit 31.5 % (37-47); Mean Corpuscular HGB Conc 31.7 g/dl (31.0-35.0); Mean Corpuscular Hemoglobin 28.4 pg (27.0-33.0); Mean Corpuscular Volume 89.5 fL (80-98); Mean Platelet Volume 10.6 fL (9.4-12.3); Platelet Count 255 X10*3/uL (160-400); Red Blood Count 3.52 X10*6/uL (4.20-5.50); Red Cell Distribution Width 14.7 % (11.0-16.0); White Blood Count 13.1 X10*3/uL (4.8-10.8)
[2020-09-30 05:39] LABS: Venous Blood Gas Refer to POC result
[2020-09-30 05:40] LABS: VBG Base Excess 13.3 mmol/L; VBG HCO3 39 mmol/L (22-26); VBG pCO2 60 mmHg; VBG pH 7.42 (7.32-7.43); VBG pO2 44 mmHg
[2020-09-30 06:06] LABS: Albumin Level 3.4 g/dL (3.5-5.0); Anion Gap 16 (12-20); Blood Urea Nitrogen 42 mg/dL (9-16); Calcium 8.7 mg/dL (8.4-10.2); Carbon Dioxide 31 mmol/L (22-29); Chloride 105 mmol/L (96-108); Creatinine Clr Calc Pharmacy 71.1; Estimated Glomerular Filt Rate 42; Glucose Random 126 mg/dL (60-115); Magnesium 2.3 mg/dL (1.6-2.6); Phosphorus 3.6 mg/dL (2.7-4.5); Potassium 3.4 mmol/L (3.3-5.1); Sodium 149 mmol/L (135-145)
[2020-09-30 06:17] LABS: Band Neutrophils Percent 2 % (3-5); Eosinophils Absolute Manual 0.4 X10*3/UL (0.0-0.8); Eosinophils Percent Manual 3 % (0-4); Large Platelet PRESENT; Lymphocytes Absolute Manual 2.2 X10*3/uL (0.6-4.8); Lymphocytes Percent Manual 17 % (20-40); Metamyelocytes Absolute 0.1 X10*3/uL; Metamyelocytes Percent 1 %; Monocytes Absolute Manual 1.3 X10*3/uL (0.0-1.2); Monocytes Percent Manual 10 % (2-11); Neutrophils Percent Manual 67 % (45-73); Platelet Estimate NORMAL (NORMAL); Platelet Morphology Comment NOTED; RBC Morphology NORMAL
[2020-09-30] MEDS: Albuterol/Iprat 2.5/0.5MG 3 ML AMPUL.NEB INHALE ×4 (07:39→20:59)
[2020-09-30] MEDS: acetaZOLAMIDE sodium 500 MG VIAL 250 MG IVPUSH ×2 (10:13→20:59)
[2020-09-30] MEDS: Dextrose 5 % 1,000 ML 80 ML IVCONT ×2 (10:14→22:23)
[2020-09-30] MEDS: Furosemide 40 MG/4 ML VIAL IVPUSH ×2 (10:15→19:46)
[2020-09-30] MEDS: 0.9 % Sodium Chloride Flush 3 ML SYRINGE IVFLUSH ×2 (10:15→17:09)
[2020-09-30] MEDS: Acetaminophen 325 MG TABLET 650 MG PO ×2 (10:17→19:55)
[2020-09-30] MEDS: Potassium Chloride Packet 20 MEQ PACKET 40 MEQ PO (10:18)
--- NOTE | 2020-09-30 11:52 | P.PNIM_ITS ---
Subjective Subjective Date of Service: 09/30/20 Interval History: anxious Cardiovascular Cardiovascular: Reports no additional cardiovascular complaints Respiratory Respiratory: Reports no additional respiratory complaints Physical Exam Vital Signs: Vital Signs: Last Vital Signs Temp 97.8 F 09/30/20 08:00 Pulse 86 09/30/20 11:08 Resp 20 09/30/20 08:00 BP 138/68 09/30/20 08:00 Pulse Ox 91 L 09/30/20 08:00 Body Mass Index 50.9 Const General: no acute distress, alert and awake Nutritional Appearance: obese Eyes Sclerae: sclerae normal EOM: EOMs intact bilaterally Neck Neck: Yes no lymphadenopathy, Yes trachea midline and Yes supple Resp Effort & Inspection: normal respiratory effort and no respiratory distress Auscultation: crackles (Bibasilar) Cardio Rate: regular rate Rhythm: regular rhythm Heart sounds: no gallops, no murmurs and no rubs GI Palpation (GI): Soft to palpation and Other GI palpation findings present ( Nontender) Auscultation: normal bowel sounds Extrem General: No clubbing, No cyanosis and Yes pedal edema (1+ bilateral) Objective Data Current Medications Generic Name Dose Route Start Last Admin Trade Name Freq PRN Reason Stop Dose Admin Acetaminophen 650 mg 09/29/20 12:04 09/30/20 10:17 Acetaminophen 325 Mg Tablet PO 650 mg Q6H PRN Administration Pain, Mild (Pain Scale 1-3) Acetazolamide 250 mg 09/28/20 09:00 09/30/20 10:13 Acetazolamide Sodium 500 Mg Vial IVPUSH 09/30/20 21:01 250 mg BID JOSÉ ANTONIO Administration Albuterol/Ipratropium 3 ml 09/24/20 16:00 09/30/20 11:07 Albuterol/Iprat 2.5/0.5mg 3 Ml Ampul.Neb INHALE 3 ml RQ4H WHILE AWAKE JOSÉ ANTONIO Administration Atorvastatin Calcium 10 mg 10/01/20 09:00 Atorvastatin Calcium 10 Mg Tablet PO DAILY JOSÉ ANTONIO Carvedilol 6.25 mg 09/30/20 21:00 Carvedilol 6.25 Mg Tablet PO BID JOSÉ ANTONIO Protocol Furosemide 40 mg 09/29/20 09:00 09/30/20 10:15 Furosemide 40 Mg/4 Ml Vial IVPUSH 40 mg BID JOSÉ ANTONIO Administration Protocol Heparin Sodium (Porcine) 5,000 unit 09/24/20 14:00 09/30/20 05:27 Heparin Sodium,Porcine 5,000 Unit/Ml Vial SUBCUT 5,000 unit Q8H JOSÉ ANTONIO Administration Levofloxacin 750 mg in 150 mls @ 100 mls/hr 09/29/20 11:00 09/29/20 13:17 Levaquin IV 10/05/20 12:29 Infused Q24H JOSÉ ANTONIO Infusion Dextrose 1,000 mls @ 80 mls/hr 09/30/20 08:30 09/30/20 10:14 D5w IVCONT 80 mls/hr .[id number] JOSÉ ANTONIO Administration Levothyroxine Sodium 25 mcg 09/26/20 06:30 09/30/20 05:26 Levothyroxine Sodium 100 Mcg/5 Ml Vial IVPUSH 25 mcg DAILY@0600 JOSÉ ANTONIO Administration Levothyroxine Sodium 50 mcg 10/01/20 09:00 Levothyroxine Sodium 50 Mcg Tablet PO DAILY JOSÉ ANTONIO Naloxone HCl 0.2 mg 09/24/20 09:51 Naloxone Hcl 0.4 Mg/Ml Vial IVPUSH Q2M PRN Excessive sedation or RR < 8 Ondansetron HCl 4 mg 09/29/20 09:41 09/29/20 10:01 Ondansetron Hcl 4 Mg/2 Ml Vial IVPUSH 4 mg Q6H PRN Administration Nausea and Vomiting Sodium Chloride 3 ml 09/26/20 00:00 09/30/20 10:15 0.9 % Sodium Chloride Flush 3 Ml Syringe IVFLUSH 3 ml QSHIFT JOSÉ ANTONIO Administration Trazodone HCl 25 mg 09/29/20 21:00 09/29/20 22:00 Trazodone Hcl 25 Mg Halftab PO 25 mg BEDTIME JOSÉ ANTONIO Administration Labs CBC & Chem 7: 09/30/20 05:29 09/30/20 05:29 Labs: Laboratory Results - last 24 hr 09/30/20 09/30/20 09/30/20 05:29 05:29 05:33 WBC 13.1 H RBC 3.52 L Hgb 10.0 L Hct 31.5 L MCV 89.5 MCH 28.4 MCHC 31.7 RDW 14.7 Plt Count 255 MPV 10.6 Immature Gran % (Auto) Cancelled Neut % (Auto) Cancelled Lymph % (Auto) Cancelled [place] % (Auto) Cancelled Eos % (Auto) Cancelled Baso % (Auto) Cancelled Lymph # (Auto) Cancelled [place] # (Auto) Cancelled Eos # (Auto) Cancelled Baso # (Auto) Cancelled Abs Immat Gran (auto) Cancelled Absolute Neuts (auto) Cancelled Absolute Nucleated RBC 0.000 Nucleated RBC % (auto) 0.0 Neutrophils % (Manual) 67 Band Neutrophils % 2 L Lymphocytes % (Manual) 17 L Monocytes % (Manual) 10 Eosinophils % (Manual) 3 Metamyelocytes % 1 Abs Neuts (Manual) 9.0 H Lymphocytes # (Manual) 2.2 Monocytes # (Manual) 1.3 H Eosinophils # (Manual) 0.4 Metamyelocytes # 0.1 Platelet Estimate NORMAL Large Platelets PRESENT Plt Morphology Comment NOTED RBC Morphology NORMAL VBG pH 7.42 VBG pCO2 60 VBG pO2 44 VBG HCO3 39 H VBG O2 Saturation 75.0 VBG Base Excess 13.3 Sodium 149 H Potassium 3.4 Chloride 105 Carbon Dioxide 31 H Anion Gap 16 BUN 42 H Creatinine 1.26 Estim Creat Clear Calc 71.1 Estimated GFR 42 Random Glucose 126 H D Calcium 8.7 Phosphorus 3.6 Magnesium 2.3 Albumin 3.4 L Microbiology Microbiology Results: Microbiology 09/24/20 10:34 Blood Culture - Final Blood - Venous No growth after 5 days. 09/24/20 10:16 Blood Culture - Final Blood - Venous No growth after 5 days. 09/26/20 17:55 Gram Stain - Final Sputum - Suctioned Sputum Culture - Final No growth. Quality Stroke Does the patient have a stroke diagnosis?: No Reason for No Anti-thrombotic by Day Two: N/A - Med Ordered VTE Prior VTE?: No VTE Risk Level:: Medical - moderate - high VTE Device Contraindication: N/A - Device Ordered VTE Drug Contraindication: N/A - Med Ordered Assessment and Plan (1) Recurrent aspiration events: Status: Acute Assessment and Plan: 70-year-old lady with underlying morbid obesity, hypertension, asthma, MISSY/obesity hyperventilation, recently started on CPAP admitted on 09/24/2020 with acute hypoxic respiratory failure secondary to pulmonary aspiration requiring intubation and ventilatory support further complicated by aspiration pneumonitis versus pneumonia. Extubated 09/27/2020. downgraded 09/30/20. acute hypoxic respiratory failure due to aspiration pneumonia and acute on chronic diastolic chf wean o2 levaquin lasix, and diamox cpap at night PT htn coreg, hld statin hypernatremia d5w, monitor hypothryoid synthroid
--- NOTE | 2020-09-30 12:06 | MHC.SL.SWA ---
Speech Pathologist Impression: Risk of Aspiration Oralpharyngeal Dysphagia Risk of Aspiration Due to: History of Pneumonia Hx of Recent Extubation Dysphasia Diet Status: Upgrade Liquid Consistency and Strategies for Safe Swallow: Liquid Intake Recommendation: Honey Thick Liquid Intake Strategies: Liquids by Teaspoon Only Solid Food Consistency: Dietary Recommendations: Pureed (NDD1) Additional Modifications to Solid Foods: Oral Medication Intake: Crushed with Puree Compensatory Strategies and Precautions to be Taken for Safe Swallow: Sitting Upright (90 deg) Liquids from Spoon Alternate Liquids/Solids Oral Check Supervision While Eating and Drinking for Safe Swallow: Total Assistance Foods to Avoid: TRAFFIC SUPERVISOR will continue to follow. Swallowing Recommended Treatments: Compens. Strategy Educat. Recommendation for Speech: Inpatient Speech Therapy Comment: Pt is very anxious about swallowing. Limited PO intake during trials with TRAFFIC SUPERVISOR. Recommend continue frequent oral care and keep head of bed elevated at least 30 degrees to reduce risk of microaspiration. Livestock Yard Supervisor Clinican/Clinical Fellow: No Supervisory Statement: I have reviewed and agree with the student/clinical fellow's documentation: N/A Speech Language Pathologist: Hermelinda Trevino M.A., CCC-TRAFFIC SUPERVISOR
[2020-09-30] MEDS: levoFLOXacin/D5W 750 MG/150 ML PIGGYBACK 100 MG IV (12:37)
[2020-09-30] MEDS: ondansetron HCL 4 MG/2 ML VIAL IVPUSH (19:54)
[2020-09-30] MEDS: traZODone HCL 25 MG HALFTAB PO (20:01)
[2020-09-30] MEDS: carvediloL 6.25 MG TABLET PO (20:01)
[2020-10-01] VITALS (13 sets, daily range): BP systolic 134–170; BP diastolic 55–73; PULSE 78–85; RESP 15–23; TEMP 36.5–36.8; O2SAT 90–95; BMI 50.8
[2020-10-01] MEDS: Heparin Sodium,Porcine 5,000 UNIT/ML VIAL 5000 UNIT SUBCUT ×3 (05:44→21:06)
[2020-10-01 06:28] LABS: Hematocrit 31.8 % (37-47); Mean Corpuscular HGB Conc 31.4 g/dl (31.0-35.0); Mean Corpuscular Hemoglobin 27.7 pg (27.0-33.0); Mean Corpuscular Volume 88.1 fL (80-98); Mean Platelet Volume 10.8 fL (9.4-12.3); Platelet Count 299 X10*3/uL (160-400); Red Blood Count 3.61 X10*6/uL (4.20-5.50); Red Cell Distribution Width 14.9 % (11.0-16.0); White Blood Count 14.3 X10*3/uL (4.8-10.8)
[2020-10-01 07:04] LABS: B Type Natriuretic Peptide 383 pg/mL (<100)
[2020-10-01 07:06] LABS: Anion Gap 19 (12-20); Blood Urea Nitrogen 43 mg/dL (9-16); Calcium 8.9 mg/dL (8.4-10.2); Carbon Dioxide 29 mmol/L (22-29); Chloride 103 mmol/L (96-108); Creatinine Clr Calc Pharmacy 73.4; Estimated Glomerular Filt Rate 44; Glucose Fasting 113 mg/dL (60-99); Potassium 3.1 mmol/L (3.3-5.1); Sodium 148 mmol/L (135-145)
[2020-10-01] MEDS: Albuterol/Iprat 2.5/0.5MG 3 ML AMPUL.NEB INHALE ×2 (07:34→14:54)
[2020-10-01] MEDS: levoFLOXacin/D5W 750 MG/150 ML PIGGYBACK 100 MG IV (10:33)
[2020-10-01] MEDS: Dextrose 5 % 1,000 ML 80 ML IVCONT (10:33)
[2020-10-01] MEDS: carvediloL 6.25 MG TABLET PO ×2 (10:34→21:07)
[2020-10-01] MEDS: Atorvastatin Calcium 10 MG TABLET PO (10:34)
[2020-10-01] MEDS: Levothyroxine Sodium 50 MCG TABLET PO (10:34)
[2020-10-01] MEDS: 0.9 % Sodium Chloride Flush 3 ML SYRINGE IVFLUSH ×3 (10:40→21:22)
[2020-10-01] MEDS: Furosemide 40 MG/4 ML VIAL IVPUSH ×2 (10:40→21:06)
--- NOTE | 2020-10-01 10:54 | MHC.SL.SWA ---
Speech Pathologist Impression: Risk of Aspiration Oralpharyngeal Dysphagia Risk of Aspiration Due to: History of Pneumonia Hx of Recent Extubation Dysphasia Diet Status: No Change Liquid Consistency and Strategies for Safe Swallow: Liquid Intake Recommendation: Honey Thick Liquid Intake Strategies: Small Sips Solid Food Consistency: Dietary Recommendations: Pureed (NDD1) Oral Medication Intake: Crushed with Puree Compensatory Strategies and Precautions to be Taken for Safe Swallow: Sitting Upright (90 deg) Liquids from Spoon Alternate Liquids/Solids Oral Check Supervision While Eating and Drinking for Safe Swallow: Total Assistance Foods to Avoid: PSYCHIATRIC NURSING ASSISTANT will continue to follow. Swallowing Recommended Treatments: Compens. Strategy Educat. Recommendation for Speech: Inpatient Speech Therapy Comment: Pt is very anxious about swallowing. Limited PO intake during trials with PSYCHIATRIC NURSING ASSISTANT. Recommend continue frequent oral care and keep head of bed elevated at least 30 degrees to reduce risk of microaspiration. Billing Clerk Clinican/Clinical Fellow: No Supervisory Statement: I have reviewed and agree with the student/clinical fellow's documentation: N/A Speech Language Pathologist: Hermelinda Trevino M.A., CCC-PSYCHIATRIC NURSING ASSISTANT
--- NOTE | 2020-10-01 11:19 | HO.PM.IMPN ---
Subjective Subjective Date of Service: 10/01/20 Interval History: hallucinations Cardiovascular Cardiovascular: Reports no additional cardiovascular complaints Gastrointestinal Gastrointestinal: Reports no additional gastrointestinal complaints Physical Exam Vital Signs: Vital Signs: Last Vital Signs Temp 98.2 F 10/01/20 07:51 Pulse 84 10/01/20 10:34 Resp 21 H 10/01/20 07:51 BP 137/55 L 10/01/20 10:34 Pulse Ox 90 L 10/01/20 09:14 Body Mass Index 50.8 Const General: no acute distress, alert and awake Nutritional Appearance: obese Eyes Sclerae: sclerae normal EOM: EOMs intact bilaterally Neck Neck: Yes no lymphadenopathy, Yes trachea midline and Yes supple Resp Effort & Inspection: normal respiratory effort and no respiratory distress Auscultation: crackles (Bibasilar) Cardio Rate: regular rate Rhythm: regular rhythm Heart sounds: no gallops, no murmurs and no rubs GI Palpation (GI): Soft to palpation and Other GI palpation findings present ( Nontender) Auscultation: normal bowel sounds Extrem General: No clubbing, No cyanosis and Yes pedal edema (1+ bilateral) Objective Data Current Medications Generic Name Dose Route Start Last Admin Trade Name Freq PRN Reason Stop Dose Admin Acetaminophen 650 mg 09/29/20 12:04 09/30/20 19:55 Acetaminophen 325 Mg Tablet PO 650 mg Q6H PRN Administration Pain, Mild (Pain Scale 1-3) Albuterol/Ipratropium 3 ml 09/24/20 16:00 10/01/20 10:46 Albuterol/Iprat 2.5/0.5mg 3 Ml Ampul.Neb INHALE Not Given RQ4H WHILE AWAKE JOSÉ ANTONIO Atorvastatin Calcium 10 mg 10/01/20 09:00 10/01/20 10:34 Atorvastatin Calcium 10 Mg Tablet PO 10 mg DAILY JOÉS ANTONIO Administration Carvedilol 6.25 mg 09/30/20 21:00 10/01/20 10:34 Carvedilol 6.25 Mg Tablet PO 6.25 mg BID JOSÉ ANTONIO Administration Protocol Furosemide 40 mg 09/29/20 09:00 10/01/20 10:40 Furosemide 40 Mg/4 Ml Vial IVPUSH 40 mg BID JOSÉ ANTONIO Administration Protocol Heparin Sodium (Porcine) 5,000 unit 09/24/20 14:00 10/01/20 05:44 Heparin Sodium,Porcine 5,000 Unit/Ml Vial SUBCUT 5,000 unit Q8H JOSÉ ANTONIO Administration Levofloxacin 750 mg in 150 mls @ 100 mls/hr 09/29/20 11:00 10/01/20 10:33 Levaquin IV 10/05/20 12:29 100 mls/hr Q24H JOSÉ ANTONIO Administration Dextrose 1,000 mls @ 80 mls/hr 09/30/20 08:30 10/01/20 10:33 D5w IVCONT 80 mls/hr .[id number] JOSÉ ANTONIO Administration Levothyroxine Sodium 50 mcg 10/01/20 09:00 10/01/20 10:34 Levothyroxine Sodium 50 Mcg Tablet PO 50 mcg DAILY JOSÉ ANTONIO Administration Naloxone HCl 0.2 mg 09/24/20 09:51 Naloxone Hcl 0.4 Mg/Ml Vial IVPUSH Q2M PRN Excessive sedation or RR < 8 Ondansetron HCl 4 mg 09/29/20 09:41 09/30/20 19:54 Ondansetron Hcl 4 Mg/2 Ml Vial IVPUSH 4 mg Q6H PRN Administration Nausea and Vomiting Sodium Chloride 3 ml 09/26/20 00:00 10/01/20 10:40 0.9 % Sodium Chloride Flush 3 Ml Syringe IVFLUSH 3 ml QSHIFT JOSÉ ANTONIO Administration Trazodone HCl 25 mg 09/29/20 21:00 09/30/20 20:01 Trazodone Hcl 25 Mg Halftab PO 25 mg BEDTIME JOSÉ ANTONIO Administration Labs CBC & Chem 7: 10/01/20 05:48 10/01/20 05:48 Labs: Laboratory Results - last 24 hr 10/01/20 10/01/20 10/01/20 05:48 05:48 05:48 WBC 14.3 H RBC 3.61 L Hgb 10.0 L Hct 31.8 L MCV 88.1 MCH 27.7 MCHC 31.4 RDW 14.9 Plt Count 299 MPV 10.8 Absolute Nucleated RBC 0.000 Nucleated RBC % (auto) 0.0 Sodium 148 H Potassium 3.1 L Chloride 103 Carbon Dioxide 29 Anion Gap 19 BUN 43 H Creatinine 1.22 Estim Creat Clear Calc 73.4 Estimated GFR 44 Fasting Glucose 113 H Calcium 8.9 Magnesium 2.0 B-Natriuretic Peptide 383 H Quality Stroke Does the patient have a stroke diagnosis?: No Reason for No Anti-thrombotic by Day Two: N/A - Med Ordered VTE Prior VTE?: No VTE Risk Level:: Medical - moderate - high VTE Device Contraindication: N/A - Device Ordered VTE Drug Contraindication: N/A - Med Ordered Assessment and Plan (1) Recurrent aspiration events: Status: Acute Assessment and Plan: 70-year-old lady with underlying morbid obesity, hypertension, asthma, MISSY/obesity hyperventilation, recently started on CPAP admitted on 09/24/2020 with acute hypoxic respiratory failure secondary to pulmonary aspiration requiring intubation and ventilatory support further complicated by aspiration pneumonitis versus pneumonia. Extubated 09/27/2020. downgraded 09/30/20. acute hypoxic respiratory failure due to aspiration pneumonia and acute on chronic diastolic chf wean o2 as tolerated levaquin (covering pseudomonas UTI as well) lasix, and diamox cpap at night PT mood disorder psych eval at discharge htn coreg, hld statin hypernatremia d5w, monitor hypothryoid synthroid
--- NOTE | 2020-10-01 12:18 | MHC.CLN ---
F/U PO INTAKE: SIPS AND BITES PER NSG PT WORKING WITH COMPUTER CONSULTANT FOR APPROPRIATE DIET CONSISTENCY DIET RECENTLY ADVANCED TO CARDIAC PUREED WITH HT LIQ PT REPORTS NOT HUNGRY, WITHOUT APPETITE. PT MAY BENEFIT FROM NUTRITION SUPPLEMENTS, BUT PT NOT RECEPTIVE TO TRIAL AT THIS TIME MONITOR PO INTAKE AND LYTES CLOSELY
--- NOTE | 2020-10-01 15:32 | P.CNPS_ITS ---
History of Present Illness Date of Service: t Chief Complaint: acute/chronic hypercarbic/hypoxic respiratory fail Reason for Consult: Psychotic symptoms Requesting physician: Scott Granados Discussed with referring provider: Yes Sources of Information: patient interviewed, chart reviewed and crisis/core team assessment reviewed HPI Narrative: The patient is a 70 year old female, admitted for aspiration pneumonia that required ICU and intubation. The consult was made since the patient has complained of paranoia there is people outside who wants to get me and auditory hallucinations that she refused to elaborate but staff has reported that she was responding to internal stimuli. She adamantly denied prior history of psychiatric symptoms Past Psychiatric History: She had outpatient psychotherapy, denies prior scottie atment with psychotropics Medical Evaluation Reviewed: Yes [facility] Medical History (Updated 10/01/20 @ 15:43 by Laith Alva) Asthma Diarrhea GERD (gastroesophageal reflux disease) Hypercholesteremia Hypertension Interstitial lung disease Neuropathy Seasonal allergies Thyroid activity decreased Surgical History H/O: hysterectomy History of cholecystectomy Family History: Denies Substance History: Denies Trauma History: Denies Diagnostics Vital Signs (24Hr): Vital Signs - 24 hr 09/30/20 19:02 09/30/20 20:59 09/30/20 23:19 Temperature 97.8 F 98.1 F Pulse Rate 82 75 83 Respiratory Rate 24 H 19 Blood Pressure 172/75 H 140/67 H Pulse Oximetry 91 L 93 10/01/20 03:11 10/01/20 03:40 10/01/20 07:35 Temperature 97.7 F Pulse Rate 81 78 Respiratory Rate 19 20 Blood Pressure 141/73 H Pulse Oximetry 94 10/01/20 07:51 10/01/20 09:14 10/01/20 10:34 Temperature 98.2 F Pulse Rate 84 84 84 Respiratory Rate 21 H Blood Pressure 157/73 H 157/73 H 137/55 L Pulse Oximetry 90 L 90 L 10/01/20 11:40 10/01/20 14:55 10/01/20 15:11 Temperature 97.7 F 98.2 F Pulse Rate 85 84 78 Respiratory Rate 23 H 18 Blood Pressure 134/59 L 148/68 H Pulse Oximetry 90 L 92 Body Mass Index 50.8 Labs Results: 10/01/20 05:48 10/01/20 05:48 Labs: Laboratory Results - last 48 hr 09/30/20 09/30/20 09/30/20 05:29 05:29 05:33 WBC 13.1 H RBC 3.52 L Hgb 10.0 L Hct 31.5 L MCV 89.5 MCH 28.4 MCHC 31.7 RDW 14.7 Plt Count 255 MPV 10.6 Immature Gran % (Auto) Cancelled Neut % (Auto) Cancelled Lymph % (Auto) Cancelled [place] % (Auto) Cancelled Eos % (Auto) Cancelled Baso % (Auto) Cancelled Lymph # (Auto) Cancelled [place] # (Auto) Cancelled Eos # (Auto) Cancelled Baso # (Auto) Cancelled Abs Immat Gran (auto) Cancelled Absolute Neuts (auto) Cancelled Absolute Nucleated RBC 0.000 Nucleated RBC % (auto) 0.0 Neutrophils % (Manual) 67 Band Neutrophils % 2 L Lymphocytes % (Manual) 17 L Monocytes % (Manual) 10 Eosinophils % (Manual) 3 Metamyelocytes % 1 Abs Neuts (Manual) 9.0 H Lymphocytes # (Manual) 2.2 Monocytes # (Manual) 1.3 H Eosinophils # (Manual) 0.4 Metamyelocytes # 0.1 Platelet Estimate NORMAL Large Platelets PRESENT Plt Morphology Comment NOTED RBC Morphology NORMAL VBG pH 7.42 VBG pCO2 60 VBG pO2 44 VBG HCO3 39 H VBG O2 Saturation 75.0 VBG Base Excess 13.3 Sodium 149 H Potassium 3.4 Chloride 105 Carbon Dioxide 31 H Anion Gap 16 BUN 42 H Creatinine 1.26 Estim Creat Clear Calc 71.1 Estimated GFR 42 Random Glucose 126 H D Fasting Glucose Calcium 8.7 Phosphorus 3.6 Magnesium 2.3 B-Natriuretic Peptide Albumin 3.4 L 10/01/20 10/01/20 10/01/20 05:48 05:48 05:48 WBC 14.3 H RBC 3.61 L Hgb 10.0 L Hct 31.8 L MCV 88.1 MCH 27.7 MCHC 31.4 RDW 14.9 Plt Count 299 MPV 10.8 Immature Gran % (Auto) Neut % (Auto) Lymph % (Auto) [place] % (Auto) Eos % (Auto) Baso % (Auto) Lymph # (Auto) [place] # (Auto) Eos # (Auto) Baso # (Auto) Abs Immat Gran (auto) Absolute Neuts (auto) Absolute Nucleated RBC 0.000 Nucleated RBC % (auto) 0.0 Neutrophils % (Manual) Band Neutrophils % Lymphocytes % (Manual) Monocytes % (Manual) Eosinophils % (Manual) Metamyelocytes % Abs Neuts (Manual) Lymphocytes # (Manual) Monocytes # (Manual) Eosinophils # (Manual) Metamyelocytes # Platelet Estimate Large Platelets Plt Morphology Comment RBC Morphology VBG pH VBG pCO2 VBG pO2 VBG HCO3 VBG O2 Saturation VBG Base Excess Sodium 148 H Potassium 3.1 L Chloride 103 Carbon Dioxide 29 Anion Gap 19 BUN 43 H Creatinine 1.22 Estim Creat Clear Calc 73.4 Estimated GFR 44 Random Glucose Fasting Glucose 113 H Calcium 8.9 Phosphorus Magnesium 2.0 B-Natriuretic Peptide 383 H Albumin Imaging Radiology Impressions: ITS Impressions Chest X-Ray 09/24/20 09:50 IMPRESSION: Bilateral lower lobe infiltrate/atelectasis with underlying small pleural effusions. Head CT 09/24/20 09:50 IMPRESSION: Diffuse bilateral multilobulated infiltrates with small bilateral pleural effusions. There are reactive mediastinal lymph nodes. The endotracheal tube tip is in good position. Chest CT 09/24/20 11:13 IMPRESSION: Diffuse bilateral multilobulated infiltrates with small bilateral pleural effusions. There are reactive mediastinal lymph nodes. The endotracheal tube tip is in good position. Chest X-Ray 09/24/20 15:25 IMPRESSION: New enteric tube tip is below diaphragm the stomach. Tip of endotracheal tube is 4.15 cm above the pedro. There is bilateral lower lobe consolidations and underlying effusion. Chest X-Ray 09/25/20 19:41 IMPRESSION: Right IJ approach central venous catheter tip at the SVC. No pneumothorax. Bilateral infiltrates are overall stable. Chest X-Ray 09/29/20 06:05 IMPRESSION: 1. No significant change in the patchy multifocal bilateral airspace disease. 2. Slight retraction of the right IJ central venous catheter, terminating near the cephalad margin of the SVC. Mental Status Exam Mental Status Exam Patient Appearance: Disheveled and Unkempt (on hospital gowns) Patient Orientation: Person and Place Level of Consciousness: Awake and Disoriented Patient Behavior: Guarded and Cooperative Mood Description: Calm and Withdrawn Affect Description: Constricted Patient Cognition Impaired: No Ability to Follow Directions: Good Speech Pattern: Clear Memory Description: Immediate Impaired Hallucinations: Auditory Delusions: Paranoid Ideation Perceptual Disturbances: Hallucinations Thought Process: Distracted and Confusion Thought Content: positive for Poverty of Content Depressive Symptoms: Increased Anxiety Judgement: Fair Medications Medications Current Medications Generic Name Dose Route Start Last Admin Trade Name Love PRN Reason Stop Dose Admin Acetaminophen 650 mg 09/29/20 12:04 09/30/20 19:55 Acetaminophen 325 Mg Tablet PO 650 mg Q6H PRN Administration Pain, Mild (Pain Scale 1-3) Albuterol/Ipratropium 3 ml 09/24/20 16:00 10/01/20 14:54 Albuterol/Iprat 2.5/0.5mg 3 Ml Ampul.Neb INHALE 3 ml RQ4H WHILE AWAKE JOSÉ ANTONIO Administration Atorvastatin Calcium 10 mg 10/01/20 09:00 10/01/20 10:34 Atorvastatin Calcium 10 Mg Tablet PO 10 mg DAILY JOSÉ ANTONIO Administration Carvedilol 6.25 mg 09/30/20 21:00 10/01/20 10:34 Carvedilol 6.25 Mg Tablet PO 6.25 mg BID JOSÉ ANTONIO Administration Protocol Furosemide 40 mg 09/29/20 09:00 10/01/20 10:40 Furosemide 40 Mg/4 Ml Vial IVPUSH 40 mg BID JOSÉ ANTONIO Administration Protocol Haloperidol 5 mg 10/01/20 21:00 Haloperidol 5 Mg Tablet PO BEDTIME JOSÉ ANTONIO Haloperidol Lactate 5 mg 10/01/20 15:29 Haloperidol Lactate 10 Mg/5 Ml Oral.Conc PO TID PRN hallucincatoins Heparin Sodium (Porcine) 5,000 unit 09/24/20 14:00 10/01/20 13:50 Heparin Sodium,Porcine 5,000 Unit/Ml Vial SUBCUT 5,000 unit Q8H JOSÉ ANTONIO Administration Levofloxacin 750 mg in 150 mls @ 100 mls/hr 09/29/20 11:00 10/01/20 13:23 Levaquin IV 10/05/20 12:29 Infused Q24H JOSÉ ANTONIO Infusion Dextrose 1,000 mls @ 80 mls/hr 09/30/20 08:30 10/01/20 10:33 D5w IVCONT 80 mls/hr .[id number] JOSÉ ANTONIO Administration Levothyroxine Sodium 50 mcg 10/01/20 09:00 10/01/20 10:34 Levothyroxine Sodium 50 Mcg Tablet PO 50 mcg DAILY JOSÉ ANTONIO Administration Naloxone HCl 0.2 mg 09/24/20 09:51 Naloxone Hcl 0.4 Mg/Ml Vial IVPUSH Q2M PRN Excessive sedation or RR < 8 Ondansetron HCl 4 mg 09/29/20 09:41 09/30/20 19:54 Ondansetron Hcl 4 Mg/2 Ml Vial IVPUSH 4 mg Q6H PRN Administration Nausea and Vomiting Sodium Chloride 3 ml 09/26/20 00:00 10/01/20 10:40 0.9 % Sodium Chloride Flush 3 Ml Syringe IVFLUSH 3 ml QSHIFT JOSÉ ANTONIO Administration Trazodone HCl 25 mg 09/29/20 21:00 09/30/20 20:01 Trazodone Hcl 25 Mg Halftab PO 25 mg BEDTIME JOSÉ ANTONIO Administration Allergies Allergies Allergy/AdvReac Type Severity Reaction Status Date / Time celecoxib [From CELEBREX] Allergy Unknown RASH Verified 08/12/20 14:26 Latex, Natural Rubber Allergy Rash Verified 08/12/20 14:26 ibuprofen [IBUPROFEN] AdvReac Intermediate RASH Verified 08/12/20 14:26 Assessment & Plan Assessment & Plan (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 Plan: 1. Start Haldol 5 mg po qhs. 2. Haldol 5 mg po bid PRN psychotic agitation. 3. Reassessment as demand. Greater than 50% of the session was spent on counseling and/or coordination of care
[2020-10-01] MEDS: HaloperidoL 5 MG TABLET PO (21:07)
[2020-10-01] MEDS: traZODone HCL 25 MG HALFTAB PO (21:07)
[2020-10-02] VITALS (11 sets, daily range): BP systolic 112–149; BP diastolic 56–67; PULSE 62–83; RESP 15–20; TEMP 36.1–37; O2SAT 93–99; BMI 47.9
[2020-10-02] MEDS: Dextrose 5 % 1,000 ML 80 ML IVCONT (01:50)
[2020-10-02] MEDS: Heparin Sodium,Porcine 5,000 UNIT/ML VIAL 5000 UNIT SUBCUT ×3 (05:49→22:48)
[2020-10-02 06:11] LABS: Hemoglobin 10.1 g/dl (12.0-16.0); Mean Corpuscular HGB Conc 32.6 g/dl (31.0-35.0); Mean Corpuscular Hemoglobin 28.5 pg (27.0-33.0); Mean Corpuscular Volume 87.6 fL (80-98); Mean Platelet Volume 10.9 fL (9.4-12.3); Platelet Count 335 X10*3/uL (160-400); Red Blood Count 3.54 X10*6/uL (4.20-5.50); Red Cell Distribution Width 14.6 % (11.0-16.0); White Blood Count 14.2 X10*3/uL (4.8-10.8)
[2020-10-02 06:38] LABS: Anion Gap 14 (12-20); Blood Urea Nitrogen 42 mg/dL (9-16); Calcium 8.3 mg/dL (8.4-10.2); Carbon Dioxide 31 mmol/L (22-29); Chloride 100 mmol/L (96-108); Creatinine Clr Calc Pharmacy 75.8; Estimated Glomerular Filt Rate 47; Glucose Fasting 116 mg/dL (60-99); Sodium 142 mmol/L (135-145)
[2020-10-02] MEDS: Potassium Chloride Packet 20 MEQ PACKET 40 MEQ PO (08:49)
[2020-10-02] MEDS: Furosemide 40 MG/4 ML VIAL IVPUSH ×2 (08:49→20:30)
[2020-10-02] MEDS: carvediloL 6.25 MG TABLET PO ×2 (08:53→20:28)
[2020-10-02] MEDS: Levothyroxine Sodium 50 MCG TABLET PO (08:53)
[2020-10-02] MEDS: Atorvastatin Calcium 10 MG TABLET PO (08:53)
[2020-10-02] MEDS: 0.9 % Sodium Chloride Flush 3 ML SYRINGE IVFLUSH ×3 (08:57→20:30)
[2020-10-02] MEDS: levoFLOXacin/D5W 750 MG/150 ML PIGGYBACK 100 MG IV (10:46)
--- NOTE | 2020-10-02 12:34 | P.PNIM_ITS ---
Subjective Subjective Date of Service: 10/02/20 Interval History: better today, sleepy Cardiovascular Cardiovascular: Reports no additional cardiovascular complaints Respiratory Respiratory: Reports no additional respiratory complaints Physical Exam Vital Signs: Vital Signs: Last Vital Signs Temp 97.0 F 10/02/20 11:38 Pulse 69 10/02/20 08:53 Resp 15 10/02/20 11:38 BP 133/62 10/02/20 11:38 Pulse Ox 94 10/02/20 11:38 Body Mass Index 47.9 General: lethargic, ill appearing, confused at times Resp: diminished CVS: S1,S2,RRR GI: soft, non tender, non distended Neuro: motor grossly intact Psych: auditory hallucinations, anxious Objective Data Current Medications Generic Name Dose Route Start Last Admin Trade Name Freq PRN Reason Stop Dose Admin Acetaminophen 650 mg 09/29/20 12:04 09/30/20 19:55 Acetaminophen 325 Mg Tablet PO 650 mg Q6H PRN Administration Pain, Mild (Pain Scale 1-3) Atorvastatin Calcium 10 mg 10/01/20 09:00 10/02/20 08:53 Atorvastatin Calcium 10 Mg Tablet PO 10 mg DAILY JOSÉ ANTONIO Administration Carvedilol 6.25 mg 09/30/20 21:00 10/02/20 08:53 Carvedilol 6.25 Mg Tablet PO 6.25 mg BID JOSÉ ANTONIO Administration Protocol Furosemide 40 mg 09/29/20 09:00 10/02/20 08:49 Furosemide 40 Mg/4 Ml Vial IVPUSH 40 mg BID JOSÉ ANTONIO Administration Protocol Haloperidol 5 mg 10/01/20 21:00 10/01/20 21:07 Haloperidol 5 Mg Tablet PO 5 mg BEDTIME JOSÉ ANTONIO Administration Haloperidol Lactate 2.5 mg 10/01/20 15:45 Haloperidol Lactate 10 Mg/5 Ml Oral.Conc PO TID PRN Psychosis Heparin Sodium (Porcine) 5,000 unit 09/24/20 14:00 10/02/20 05:49 Heparin Sodium,Porcine 5,000 Unit/Ml Vial SUBCUT 5,000 unit Q8H JOSÉ ANTONIO Administration Levofloxacin 750 mg in 150 mls @ 100 mls/hr 09/29/20 11:00 10/02/20 10:46 Levaquin IV 10/05/20 12:29 100 mls/hr Q24H JOSÉ ANTONIO Administration Levothyroxine Sodium 50 mcg 10/01/20 09:00 10/02/20 08:53 Levothyroxine Sodium 50 Mcg Tablet PO 50 mcg DAILY JOSÉ ANTONIO Administration Naloxone HCl 0.2 mg 09/24/20 09:51 Naloxone Hcl 0.4 Mg/Ml Vial IVPUSH Q2M PRN Excessive sedation or RR < 8 Ondansetron HCl 4 mg 09/29/20 09:41 09/30/20 19:54 Ondansetron Hcl 4 Mg/2 Ml Vial IVPUSH 4 mg Q6H PRN Administration Nausea and Vomiting Sodium Chloride 3 ml 09/26/20 00:00 10/02/20 08:57 0.9 % Sodium Chloride Flush 3 Ml Syringe IVFLUSH 3 ml QSHIFT JOSÉ ANTONIO Administration Trazodone HCl 25 mg 09/29/20 21:00 10/01/20 21:07 Trazodone Hcl 25 Mg Halftab PO 25 mg BEDTIME JOSÉ ANTONIO Administration Labs CBC & Chem 7: 10/02/20 05:24 10/02/20 05:24 Labs: Laboratory Results - last 24 hr 10/02/20 10/02/20 05:24 05:24 WBC 14.2 H RBC 3.54 L Hgb 10.1 L Hct 31.0 L MCV 87.6 MCH 28.5 MCHC 32.6 RDW 14.6 Plt Count 335 MPV 10.9 Absolute Nucleated RBC 0.000 Nucleated RBC % (auto) 0.0 Sodium 142 Potassium 3.0 L Chloride 100 Carbon Dioxide 31 H Anion Gap 14 BUN 42 H Creatinine 1.14 Estim Creat Clear Calc 75.8 Estimated GFR 47 Fasting Glucose 116 H Calcium 8.3 L D Quality Stroke Does the patient have a stroke diagnosis?: No Reason for No Anti-thrombotic by Day Two: N/A - Med Ordered VTE Prior VTE?: No VTE Risk Level:: Medical - moderate - high VTE Device Contraindication: N/A - Device Ordered VTE Drug Contraindication: N/A - Med Ordered Assessment and Plan (1) Recurrent aspiration events: Status: Acute Assessment and Plan: 70-year-old lady with underlying morbid obesity, hypertension, asthma, MISSY/obesity hyperventilation, recently started on CPAP admitted on 09/24/2020 with acute hypoxic respiratory failure secondary to pulmonary aspiration requiring intubation and ventilatory support further complicated by aspiration pneumonitis versus pneumonia. Extubated 09/27/2020. downgraded 09/30/20. 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
[2020-10-02] MEDS: traZODone HCL 25 MG HALFTAB PO (20:28)
[2020-10-02] MEDS: HaloperidoL 5 MG TABLET PO (20:28)
[2020-10-02] MEDS: Acetaminophen 325 MG TABLET 650 MG PO (20:32)
[2020-10-03] VITALS (9 sets, daily range): BP systolic 116–141; BP diastolic 53–64; PULSE 73–90; RESP 18; TEMP 36.3–37; O2SAT 95–98; BMI 48.2
[2020-10-03] MEDS: guaiFEN/Codeine SF 200/20/10ML 10 ML LIQUID 5 ML PO (01:45)
[2020-10-03] MEDS: Heparin Sodium,Porcine 5,000 UNIT/ML VIAL 5000 UNIT SUBCUT ×3 (05:23→22:58)
[2020-10-03 06:41] LABS: Hematocrit 31.8 % (37-47); Hemoglobin 10.3 g/dl (12.0-16.0); Mean Corpuscular HGB Conc 32.4 g/dl (31.0-35.0); Mean Corpuscular Hemoglobin 28.5 pg (27.0-33.0); Mean Corpuscular Volume 87.8 fL (80-98); Mean Platelet Volume 10.6 fL (9.4-12.3); Platelet Count 392 X10*3/uL (160-400); Red Blood Count 3.62 X10*6/uL (4.20-5.50); Red Cell Distribution Width 14.9 % (11.0-16.0); White Blood Count 16.1 X10*3/uL (4.8-10.8)
[2020-10-03 06:58] LABS: Anion Gap 13 (12-20); Blood Urea Nitrogen 44 mg/dL (9-16); Calcium 8.3 mg/dL (8.4-10.2); Carbon Dioxide 33 mmol/L (22-29); Chloride 100 mmol/L (96-108); Estimated Glomerular Filt Rate 45; Glucose Fasting 99 mg/dL (60-99); Potassium 3.4 mmol/L (3.3-5.1); Sodium 143 mmol/L (135-145)
[2020-10-03 07:01] LABS: B Type Natriuretic Peptide 71 pg/mL (<100)
[2020-10-03] MEDS: 0.9 % Sodium Chloride Flush 3 ML SYRINGE IVFLUSH ×3 (09:50→20:34)
[2020-10-03] MEDS: carvediloL 6.25 MG TABLET PO ×2 (09:51→20:34)
[2020-10-03] MEDS: Levothyroxine Sodium 50 MCG TABLET PO (09:51)
[2020-10-03] MEDS: Atorvastatin Calcium 10 MG TABLET PO (09:51)
[2020-10-03] MEDS: Furosemide 40 MG TABLET PO (09:51)
[2020-10-03] MEDS: levoFLOXacin/D5W 750 MG/150 ML PIGGYBACK 100 MG IV (10:00)
--- NOTE | 2020-10-03 10:43 | P.PNIM_ITS ---
Subjective Subjective Date of Service: 10/03/20 Interval History: feeling better, sleepy Cardiovascular Cardiovascular: Reports no additional cardiovascular complaints Gastrointestinal Gastrointestinal: Reports no additional gastrointestinal complaints Physical Exam Vital Signs: Vital Signs: Last Vital Signs Temp 97.6 F 10/03/20 07:22 Pulse 81 10/03/20 07:22 Resp 18 10/03/20 07:22 BP 141/64 H 10/03/20 09:51 Pulse Ox 97 10/03/20 07:22 Body Mass Index 48.2 General: lethargic, confused at times Resp: diminished CVS: S1,S2,RRR GI: soft, non tender, non distended Neuro: motor grossly intact Psych: anxious Objective Data Current Medications Generic Name Dose Route Start Last Admin Trade Name Freq PRN Reason Stop Dose Admin Acetaminophen 650 mg 09/29/20 12:04 10/02/20 20:32 Acetaminophen 325 Mg Tablet PO 650 mg Q6H PRN Administration Pain, Mild (Pain Scale 1-3) Atorvastatin Calcium 10 mg 10/01/20 09:00 10/03/20 09:51 Atorvastatin Calcium 10 Mg Tablet PO 10 mg DAILY JOSÉ ANTONIO Administration Carvedilol 6.25 mg 09/30/20 21:00 10/03/20 09:51 Carvedilol 6.25 Mg Tablet PO 6.25 mg BID JOSÉ ANTONIO Administration Protocol Furosemide 40 mg 10/03/20 09:00 10/03/20 09:51 Furosemide 40 Mg Tablet PO 40 mg DAILY JOSÉ ANTONIO Administration Protocol Haloperidol 5 mg 10/01/20 21:00 10/02/20 20:28 Haloperidol 5 Mg Tablet PO 5 mg BEDTIME JOSÉ ANTONIO Administration Haloperidol Lactate 2.5 mg 10/01/20 15:45 Haloperidol Lactate 10 Mg/5 Ml Oral.Conc PO TID PRN Psychosis Heparin Sodium (Porcine) 5,000 unit 09/24/20 14:00 10/03/20 05:23 Heparin Sodium,Porcine 5,000 Unit/Ml Vial SUBCUT 5,000 unit Q8H JOSÉ ANTONIO Administration Levofloxacin 750 mg in 150 mls @ 100 mls/hr 09/29/20 11:00 10/03/20 10:00 Levaquin IV 10/05/20 12:29 100 mls/hr Q24H JOSÉ ANTONIO Administration Levothyroxine Sodium 50 mcg 10/01/20 09:00 10/03/20 09:51 Levothyroxine Sodium 50 Mcg Tablet PO 50 mcg DAILY JOSÉ ANTONIO Administration Naloxone HCl 0.2 mg 09/24/20 09:51 Naloxone Hcl 0.4 Mg/Ml Vial IVPUSH Q2M PRN Excessive sedation or RR < 8 Ondansetron HCl 4 mg 09/29/20 09:41 09/30/20 19:54 Ondansetron Hcl 4 Mg/2 Ml Vial IVPUSH 4 mg Q6H PRN Administration Nausea and Vomiting Sodium Chloride 3 ml 09/26/20 00:00 10/03/20 09:50 0.9 % Sodium Chloride Flush 3 Ml Syringe IVFLUSH 3 ml QSHIFT JOSÉ ANTONIO Administration Trazodone HCl 25 mg 09/29/20 21:00 10/02/20 20:28 Trazodone Hcl 25 Mg Halftab PO 25 mg BEDTIME JOSÉ ANTONIO Administration Labs CBC & Chem 7: 10/03/20 05:29 10/03/20 05:29 Labs: Laboratory Results - last 24 hr 10/03/20 10/03/20 10/03/20 05:29 05:29 05:29 WBC 16.1 H RBC 3.62 L Hgb 10.3 L Hct 31.8 L MCV 87.8 MCH 28.5 MCHC 32.4 RDW 14.9 Plt Count 392 MPV 10.6 Absolute Nucleated RBC 0.000 Nucleated RBC % (auto) 0.0 Sodium 143 Potassium 3.4 Chloride 100 Carbon Dioxide 33 H Anion Gap 13 BUN 44 H Creatinine 1.20 Estim Creat Clear Calc 72.0 Estimated GFR 45 Fasting Glucose 99 Calcium 8.3 L B-Natriuretic Peptide 71 Quality Stroke Does the patient have a stroke diagnosis?: No Reason for No Anti-thrombotic by Day Two: N/A - Med Ordered VTE Prior VTE?: No VTE Risk Level:: Medical - moderate - high VTE Device Contraindication: N/A - Device Ordered VTE Drug Contraindication: N/A - Med Ordered Assessment and Plan (1) Recurrent aspiration events: Status: Acute Assessment and Plan: 70-year-old lady with underlying morbid obesity, hypertension, asthma, MISSY/obesity hyperventilation, recently started on CPAP admitted on 09/24/2020 with acute hypoxic respiratory failure secondary to pulmonary aspiration requiring intubation and ventilatory support further complicated by aspiration pneumonitis versus pneumonia. Extubated 09/27/2020. downgraded 09/30/20. 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
[2020-10-03] MEDS: guaiFENesin 100 MG/5 ML LIQUID PO ×3 (11:18→23:34)
[2020-10-03] MEDS: ondansetron HCL 4 MG/2 ML VIAL IVPUSH (13:06)
[2020-10-03] MEDS: traZODone HCL 25 MG HALFTAB PO (20:33)
[2020-10-03] MEDS: HaloperidoL 5 MG TABLET PO (20:33)
[2020-10-04 03:36] VITALS: BP 155/67; PULSE 78; RESP 20; TEMP 37; O2SAT 95
[2020-10-04] MEDS: Heparin Sodium,Porcine 5,000 UNIT/ML VIAL 5000 UNIT SUBCUT (05:25)
[2020-10-04 05:50] VITALS: BMI 47.4
[2020-10-04] MEDS: guaiFENesin 100 MG/5 ML LIQUID PO ×2 (06:26→15:59)
[2020-10-04 07:10] LABS: Anion Gap 11 (12-20); Blood Urea Nitrogen 38 mg/dL (9-16); Calcium 8.2 mg/dL (8.4-10.2); Carbon Dioxide 33 mmol/L (22-29); Chloride 99 mmol/L (96-108); Creatinine Clr Calc Pharmacy 80.2; Estimated Glomerular Filt Rate 51; Glucose Fasting 97 mg/dL (60-99); Potassium 3.4 mmol/L (3.3-5.1); Sodium 140 mmol/L (135-145)
[2020-10-04 07:22] VITALS: BP 131/60; PULSE 77; RESP 19; TEMP 36.4; O2SAT 97
[2020-10-04 09:24] VITALS: BP 131/60; PULSE 77; O2SAT 97
[2020-10-04 09:34] VITALS: BP 131/60; PULSE 77
[2020-10-04] MEDS: carvediloL 6.25 MG TABLET PO (09:34)
[2020-10-04] MEDS: Atorvastatin Calcium 10 MG TABLET PO (09:34)
[2020-10-04] MEDS: 0.9 % Sodium Chloride Flush 3 ML SYRINGE IVFLUSH (09:34)
[2020-10-04] MEDS: Levothyroxine Sodium 50 MCG TABLET PO (09:34)
[2020-10-04] MEDS: Furosemide 40 MG TABLET PO (09:35)
--- NOTE | 2020-10-04 10:46 | MHC.SL.SWA ---
Speech Pathologist Impression: Risk of Aspiration Oralpharyngeal Dysphagia Risk of Aspiration Due to: History of Pneumonia Hx of Recent Extubation Dysphasia Diet Status: Upgrade Liquid Consistency and Strategies for Safe Swallow: Liquid Intake Recommendation: [place] Thick Liquid Intake Strategies: Small Sips Solid Food Consistency: Dietary Recommendations: Pureed (NDD1) Oral Medication Intake: Crushed with Puree Compensatory Strategies and Precautions to be Taken for Safe Swallow: Sitting Upright (90 deg) Liquids from Spoon Alternate Liquids/Solids Oral Check Supervision While Eating and Drinking for Safe Swallow: Total Assistance Foods to Avoid: SKID ROAD WORKER will continue to follow. Swallowing Recommended Treatments: Compens. Strategy Educat. Recommendation for Speech: Inpatient Speech Therapy Comment: Patient is very anxious about swallowing. Patient refuses to trial harder solids. Recommend continue frequent oral care and keep head of bed elevated at least 30 degrees to reduce risk of microaspiration. Water (thin) ok by TEASPOON ONLY and by REQUEST ONLY with supervision and close monitoring for any s/s of aspiration. Senior Energy Consultant Clinican/Clinical Fellow: No Supervisory Statement: I have reviewed and agree with the student/clinical fellow's documentation: N/A Speech Language Pathologist: Hermelinda Trevino M.A., CCC-SKID RO[address] WORKER
--- NOTE | 2020-10-04 11:26 | MHC.CLN ---
F/U PO INTAKE: VARIABLE 0/50% BUT IMPROVING SLOWLY PT CONTINUES TO WORK WITH STAVE CUTTER FOR APPROPRIATE DIET CONSISTENCY DIET RECENTLY ADVANCED TO CARDIAC PUREED WITH NT LIQ WILL ADD ENSURE BID TO INCREASE KCALS MONITOR PO INTAKE AND LYTES CLOSELY
[2020-10-04 11:57] VITALS: BP 118/56; PULSE 79; RESP 21; TEMP 36.6; O2SAT 93
--- NOTE | 2020-10-04 12:15 | P.DS_ITS ---
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: Status: Acute (3) Diastolic dysfunction: Status: Acute (4) Acute respiratory failure with hypoxia and hypercapnia: Status: Acute (5) Acute hypercapnic respiratory failure: Status: Acute (6) Aspiration pneumonia: Status: Acute DS: Medications Discharge Medications Home Medications: Home Medications Medication Instructions Recorded Confirmed Dexilant 60 mg PO DAILY 01/30/20 09/30/20 diphenoxylate-atropine 1 tab PO TID PRN 01/30/20 09/30/20 levothyroxine 1 tab PO DAILY 01/30/20 09/30/20 pregabalin 1 cap PO BID 01/30/20 09/30/20 atorvastatin 1 tab PO DAILY 07/30/20 09/30/20 carvedilol 1 tab PO BID 07/30/20 09/30/20 ketoconazole 1 appl TOPICAL BID 07/30/20 09/30/20 triamcinolone acetonide [Nasal 2 spray INTRANASAL DAILY 07/30/20 09/30/20 Allergy] cetirizine 10 mg tablet 10 mg PO DAILY 09/16/20 09/30/20 montelukast 10 mg tablet 10 mg PO BEDTIME 09/16/20 09/30/20 Dry Eye Relief 1 drp OPHTHALMIC (EYE) 5XD PRN 09/30/20 09/30/20 Previous Rx's Medication Instructions Recorded Breo Ellipta 1 ea INHALATION RDAILY #60 ea 08/06/20 furosemide 40 mg PO DAILY #0 tab 10/04/20 haloperidol 5 mg PO BEDTIME #0 tab 10/04/20 haloperidol lactate 2.5 mg PO TID PRN #0 ml 10/04/20 DS: Summary Hospital Course Hospital Course: patient was admitted for acute hypoxic respiratory failure secondary to aspiration pneumonia and acute on chronic diastolic CHF. She was intubated. She was treated with IV diuresis and antibiotics. She was then successfully extubated and downgraded to medical floor. She was noted to have Pseudomonas UTI which was treated with Levaquin. Due to her obesity hypoventilation /0SA she is using CPAP at night. Patient was noted to have acute psychosis with auditory hallucinations. She was seen by Psychiatry recommended starting Haldol . With Haldol patient no longer has Hallucinations. She should follow up with Psychiatry as outpatient. Patient was seen by speech therapy for dysphagia who are currently recommending pureed solids with nectar thick liquids, she can have spoonfuls of thin liquids. Patient has some debility from prolonged hospital stay and will be discharged to nursing home facility for short-term rehab. She is expected to stay less than 30 days. childers should be removed and trial of void once patient is at SNF. Time Spent with Patient Time attestation: Total time spent providing and/or coordinating discharge services: Discharge coordination time: Greater than 30 minutes Quality: Stroke Does the patient have a stroke diagnosis?: No Physical Exam Vital Signs: Vital Signs: Last Vital Signs Temp 97.8 F 10/04/20 11:57 Pulse 79 10/04/20 11:57 Resp 21 H 10/04/20 11:57 BP 118/56 L 10/04/20 11:57 Pulse Ox 93 10/04/20 11:57 Body Mass Index 47.4 General: AO X 3, no acute distress Resp: diminished CVS: S1,S2,RRR GI: soft, non tender, non distended Neuro: motor grossly intact Psych: appropriate affect DS: Data Data Completed and Pending Completed studies during hospitalization [Text1]: Procedures Assistance with Respiratory Ventilation, Less than 24 Consecutive Hours, Continuous Positive Airway Pressure (07/30/20) Labs on day of discharge: Laboratory Results - last 24 hr 10/04/20 06:06 Sodium 140 Potassium 3.4 Chloride 99 Carbon Dioxide 33 H Anion Gap 11 L BUN 38 H Creatinine 1.07 Estim Creat Clear Calc 80.2 Estimated GFR 51 Fasting Glucose 97 Calcium 8.2 L Discharge Plan Discharge Patient Disposition: Xfer SNF Discharge Diagnosis: resp failure [facility] [Outside] - 1 Week Bryanna Gama MD [Primary Care Provider] - 1 Week Discharge Medications: New haloperidol 5 mg Tablet 5 mg PO BEDTIME Qty: 0 RF: 0 haloperidol lactate 2 mg/mL Concentrate 2.5 mg PO TID PRN (Reason: Psychosis) Qty: 0 RF: 0 furosemide 40 mg Tablet 40 mg PO DAILY Qty: 0 RF: 0 Continued levothyroxine 50 mcg tablet 1 tab PO DAILY RF: 0 pregabalin 150 mg capsule 1 cap PO BID RF: 0 Dexilant 60 mg capsule,biphase delayed releas 60 mg PO DAILY RF: 0 diphenoxylate-atropine 2.5-0.025 mg Tablet 1 tab PO TID PRN (Reason: Diarrhea) RF: 0 carvedilol 6.25 mg tablet 1 tab PO BID RF: 0 atorvastatin 10 mg tablet 1 tab PO DAILY RF: 0 triamcinolone acetonide [Nasal Allergy] 55 mcg aerosol,spray 2 spray intranasal DAILY RF: 0 ketoconazole 2 % cream 1 appl topical BID RF: 0 Breo Ellipta 100-25 mcg/dose Blister With Device 1 ea inhalation RDAILY Qty: 60 RF: 0 Dry Eye Relief 1-0.2-0.2 % Drops 1 drp OPHTHALMIC (EYE) 5XD PRN (Reason: Dry Eye(S)) RF: 0 montelukast 10 mg tablet 10 mg PO BEDTIME RF: 0 cetirizine 10 mg tablet 10 mg PO DAILY RF: 0 Discontinued hydrochlorothiazide 25 mg tablet 1 tab PO DAILY RF: 0 losartan 25 mg tablet 1 tab PO DAILY RF: 0 Discharge Orders: Discharge Order (Routine); Ordered 10/04/20 Ordered By: Scott Granados Diet: advance to usual diet Activity on Discharge: As tolerated Stand Alone Forms: Patient Portal Discharge page Care Plan Goals: recovery Health Concerns: resp failure, chf, auditory hallucinations Plan of Treatment: lasix, cpap at night, haldol, follow up psych outpatient, puree diet with nectar thick liquids, lucinda steen once at rehab Assessment: see above
[2020-10-04] MEDS: levoFLOXacin/D5W 750 MG/150 ML PIGGYBACK 100 MG IV (12:22)
--- NOTE | 2020-10-04 12:23 | MHC.CM.PN ---
Patient has been medically cleared for dc to STR[facility]SNF today. Patient will dc to [facility] today at 2PM, via [facility]. IMM addressed with Patient today; original given to Patient and a copy placed on the chart. Patient's /Edward at [phone] is also aware of and in agreement with the dc plan. Edward will bring in Patient's walker and CPAP from home.
[2020-10-04 13:56] LABS: COVID-19 Test Negative (Negative)
[2020-10-04 15:10] VITALS: BP 146/66; PULSE 80; RESP 15; TEMP 36.1; O2SAT 95
--- NOTE | 2020-10-04 16:24 | PC.NURSE ---
report called to [facility]. instructed that she had childers in place. incontinent of stool prior. chary care given.
== END 2020-10-04 16:29 | disposition skilled nursing facility (03) | DRG 208 ==
LOC: HO.ED 11:20 → HO.ICU 13:06 → HO.IMC 09-30 06:49
PROVIDERS: Internal Medicine Pulmonary Disease; Physician Assistant; Registered Nurse Community Health; Admitting Provider Internal Medicine Cardiovascular Disease; Emergency Provider Emergency Medicine; PCP Internal Medicine; Visit Provider Internal Medicine
DX: J69.0 Pneumonitis due to inhalation of food and vomit (principal); J96.02 Acute respiratory failure with hypercapnia; J96.01 Acute respiratory failure with hypoxia; I50.33 Acute on chronic diastolic (congestive) heart failure; E66.2 Morbid (severe) obesity with alveolar hypoventilation; Z68.42 Body mass index [BMI] 45.0-49.9, adult; E87.0 Hyperosmolality and hypernatremia; F06.2 Psychotic disorder with delusions due to known physiological condition; I11.0 Hypertensive heart disease with heart failure; J45.909 Unspecified asthma, uncomplicated; J84.9 Interstitial pulmonary disease, unspecified; Z20.822 Contact with and (suspected) exposure to COVID-19; E03.9 Hypothyroidism, unspecified; R13.10 Dysphagia, unspecified; Z99.89 Dependence on other enabling machines and devices; Z88.6 Allergy status to analgesic agent; Z79.51 Long term (current) use of inhaled steroids; Z79.899 Other long term (current) drug therapy
CPT/HCPCS: 36415; 70450; 71045; 71250; 80048; 80076; 80307; 81001; 82040; 82077; 83605; 83690; 83735; 83880; 84100; 84443; 84484; 85007; 85025; 85027; 85610; 85730; 87040; 87070; 87086; 87088; 87186; 87205; 87633; 87635; 92610; 93005; 94002; 94003; 94640; 94644; 94660; 97116; 97163; 97530; 99285; J0295; J0610; J1940; J1956; J2405; J2543; J2930; J3010; J3370; J3475; P9047

== ENCOUNTER 2020-10-25 00:47 | Outpatient (REF) | payer MEDICARE, MEDICAID, SELFPAY | END 2020-10-25 00:48 | disposition home or self-care (01) | LOC: HO.MMNH1L 00:47 | PROVIDERS: Visit Provider Family Medicine | DX: Z13.89 Encounter for screening for other disorder (principal) ==

== ENCOUNTER 2020-11-24 13:26 | Outpatient (REF) | payer MEDICARE, MEDICAID, SELFPAY | END 2020-11-24 13:27 | disposition home or self-care (01) | LOC: HO.CT 13:26 | PROVIDERS: PCP Internal Medicine; Visit Provider Internal Medicine | DX: Z13.89 Encounter for screening for other disorder (principal) ==

== ENCOUNTER 2020-11-30 15:03 | Outpatient (REF) | payer MEDICARE, MEDICAID, SELFPAY ==
--- NOTE | ~2020-11-30 | XR_ITS ---
EXAMINATION: XR CHEST CLINICAL INFORMATION: Aspiration pneumonia COMPARISON: Previous chest x-rays most recent September 2020 TECHNIQUE: 2 views of the chest were obtained. FINDINGS: The cardiac and mediastinal contours are stable. There is residual atelectasis or pneumonia in the left lower lobe. The lungs are otherwise clear. There is a small left pleural effusion. There is no right pleural effusion. There is curvature of the thoracic spine to the right and degenerative changes. XR/XR chest 2V IMPRESSION: Residual atelectasis or pneumonia in the left lower lobe and small left pleural effusion.
== END 2020-11-30 15:04 | disposition home or self-care (01) ==
LOC: HO.XRAY 15:03
PROVIDERS: PCP Internal Medicine; Visit Provider Internal Medicine
DX: E66.2 Morbid (severe) obesity with alveolar hypoventilation (principal); J69.0 Pneumonitis due to inhalation of food and vomit; J84.9 Interstitial pulmonary disease, unspecified; Z68.43 Body mass index [BMI] 50.0-59.9, adult; Z79.899 Other long term (current) drug therapy
CPT/HCPCS: 71046; 99212

== ENCOUNTER → 2021-01-27 15:13 | Outpatient (BNVA) | payer MEDICARE, MEDICAID, SELFPAY | PROVIDERS: PCP Internal Medicine; Visit Provider Internal Medicine | DX: G47.33 Obstructive sleep apnea (adult) (pediatric) (principal); J84.9 Interstitial pulmonary disease, unspecified; E66.2 Morbid (severe) obesity with alveolar hypoventilation | CPT/HCPCS: 99212 ==

== ENCOUNTER 2021-03-13 01:22 | Emergency (ER) | payer MEDICARE, MEDICAID, SELFPAY ==
--- NOTE | 2021-03-13 | ECG_ITS ---
Test Reason : SOB Blood Pressure : / mmHG Vent. Rate : 067 BPM Atrial Rate : 067 BPM P-R Int : 184 ms QRS Dur : 106 ms QT Int : 434 ms P-R-T Axes : 032 -30 021 degrees QTc Int : 458 ms Normal sinus rhythm Left axis deviation Moderate voltage criteria for LVH, may be normal variant ( R in aVL , [place] product ) Abnormal ECG When compared with ECG of 24-SEP-2020 09:49, QRS duration has decreased T wave inversion now evident in Inferior leads T wave inversion no longer evident in Lateral leads QT has shortened Referred By: Generic ED Physician Electronically Signed By:TISH LEMUS
--- NOTE | ~2021-03-13 | XR_ITS ---
EXAMINATION: XR CHEST CLINICAL INFORMATION: Shortness of breath COMPARISON: 11/30/2020 TECHNIQUE: Frontal view of the chest was obtained. FINDINGS: Normal symmetric lung volumes. No parenchymal consolidation. Trace left pleural effusion. No pneumothorax. Cardiomediastinal silhouette and pulmonary vascularity are within normal limits. No acute osseous abnormalities. XR/XR chest 1V IMPRESSION: Trace left pleural effusion.
[2021-03-13 01:37] VITALS: BP 100/60; PULSE 77; O2SAT 95
[2021-03-13 02:24] VITALS: BP 107/37; PULSE 66; RESP 14; TEMP 38.8; O2SAT 94; BMI 54.9
[2021-03-13 02:57] VITALS: BP 108/47; PULSE 67; RESP 22; O2SAT 97
[2021-03-13 03:05] LABS: MANUAL DIFF FLAG NO
[2021-03-13 03:06] LABS: Influenza A PCR NEGATIVE (Negative); Influenza B PCR NEGATIVE (Negative); Resp Syncy Virus RNA Qual PCR NEGATIVE (Negative); SARS COV2 PCR INHOUSE POSITIVE (Negative)
--- NOTE | 2021-03-13 03:06 | ED_ITS ---
HPI - General Adult General Chief complaint: Dyspnea Stated complaint: fever/general sickness Time Seen by Provider: 03/13/21 02:57 Source: patient and EMS Mode of arrival: EMS Limitations: no limitations History of Present Illness HPI narrative: Patient comes emergency room complaining shortness of breath, weakness, diarrhea for 3-5 days. Patient states that she has been having fever up to 103 at home. Patient took Tylenol. Over last few days, patient has [id number] Tussin without any relief. Patient denies vomiting, reports multiple episodes of diarrhea. Patient states that she has not been vaccinated for COVID-19 due to fear of the vaccine. Related Data Home Medications Medication Instructions Recorded Confirmed carvedilol 6.25 mg tablet 1 tab PO BID 03/13/21 03/13/21 cetirizine 10 mg tablet 1 tab PO DAILY 03/13/21 03/13/21 ciclopirox 0.77 % topical cream 1 appl TOPICAL BID 03/13/21 03/13/21 ferrous sulfate 325 mg (65 mg 1 tab PO DAILY 03/13/21 03/13/21 iron) tablet fluticasone 250 mcg-salmeterol 50 1 puff PO BID 03/13/21 03/13/21 mcg/dose blistr powdr for inhalation (Advair Diskus) furosemide 40 mg tablet 1 tab PO DAILY 03/13/21 03/13/21 ketoconazole 2 % topical cream 1 appl TOPICAL BID 03/13/21 03/13/21 levothyroxine 50 mcg tablet 1 tab PO DAILY 03/13/21 03/13/21 losartan 25 mg tablet 1 tab PO DAILY 03/13/21 03/13/21 magnesium oxide 400 mg (241.3 mg 1 tab PO DAILY 03/13/21 03/13/21 magnesium) tablet montelukast 10 mg tablet 1 tab PO BEDTIME 03/13/21 03/13/21 pregabalin 225 mg capsule 1 cap PO BID 03/13/21 03/13/21 Previous Rx's Medication Instructions Recorded cefuroxime axetil 500 mg tablet 500 mg PO BID #13 tab 03/13/21 Allergies Allergy/AdvReac Type Severity Reaction Status Date / Time celecoxib [From CELEBREX] Allergy Unknown RASH Verified 03/13/21 02:27 Latex, Natural Rubber Allergy Unknown Rash Verified 03/13/21 02:27 ibuprofen [IBUPROFEN] AdvReac Intermediate RASH Verified 03/13/21 02:27 Review of Systems Review of Systems: Constitutional : No Weight loss, complaining of fever, chills, fatigue and generalized malaise ENT/Mouth : No Hearing loss, No Ear Pain, No Nasal Congestion, No Sinus Pain, No Hoarseness, No sore throat, No Rhinorrhea, No Swallowing Difficulty Eyes: No Eye Pain, No Swelling, No Redness, No Foreign Body, No Discharge, No Vision Changes Cardiovascular : No Chest Pain, No SOB, No Dyspnea on Exertion, No Orthopnea, mild chronic lower extremity edema, No Palpitations Respiratory : Complaining of Cough, No Sputum, No Wheezing, No Smoke Exposure, complaining of Dyspnea Gastrointestinal : No Nausea, No Vomiting, complaining of Diarrhea, No Constipation, No abdominal Pain, No Hematochezia, No Melena Genitourinary : no irregular bleeding, No Dysuria, No Urinary Frequency, No Hematuria, No Urinary Incontinence, No Urgency, No Flank Pain, No Urinary Flow Changes, No Hesitancy Musculoskeletal : No joint pain, No Myalgias, No Joint Swelling Skin : No Skin Lesions, No rash Neuro : No Weakness, No Numbness, No Paresthesias, No Loss of Consciousness, No Dizziness, No Headache Psych : No Anxiety/Panic, No Depression, No SI/HI/AH/VH, No Social Issues, Heme/Lymph: No Bruising, No Bleeding,No Lymphadenopathy Endocrine : No Polyuria, No Polydipsia, No Temperature Intolerance PMFSH Past Medical History Medical History Asthma Diarrhea GERD (gastroesophageal reflux disease) Hypercholesteremia Hypertension Interstitial lung disease Neuropathy Seasonal allergies Thyroid activity decreased Surgical History H/O: hysterectomy History of cholecystectomy Social History Social History Household Members: Family 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 Housing: Unknown / Unable to assess Housing Other:: [place] Do you presently have visiting nurse or other home services: Yes (pct) Unable to assess alcohol history related to: Unable to respond and Unknown Alcohol intake: unknown Patient Tobacco Use Status: Tobacco use Unknown Advance Directives: No Advance Directives Information Provided: Yes service: No Current occupational status: retired Physical Exam Vital Signs: Vital Signs: Last Vital Signs Temp 98.2 F 03/13/21 06:00 Pulse 63 03/13/21 06:00 Resp 12 03/13/21 06:00 BP 108/53 L 03/13/21 06:00 Pulse Ox 97 03/13/21 06:00 Oxygen Flow Rate 3 03/13/21 02:24 BMI result Body Mass Index 54.9 Const: Other: Appearance: Alert. Oriented X3. No acute distress. Eyes: Pupils equal, round and reactive to light. ENT: Pharynx normal. Neck: Normal inspection. Neck supple. No lymph nodes noted. No crepitus CVS: Normal heart rate and rhythm. Pulses normal. Normal S1 and S2 Respiratory: No respiratory distress. Breath sounds normal. No Wheezing. No rales , oxygen saturation 97% on home 3 L Abdomen: Soft and nontender. No rigidity. No distention. good BS x4 Skin: Skin warm and dry. Normal skin color. Normal skin turgor. Extremities: +1 pitting edema bilaterally, No Lacerations. No Rash Neuro: Oriented X 3. No motor deficit. No sensory deficit. Moving all extermities. No slurred speech. Course Course Course Narrative: Patient remains saturating 97% on her usual 3 L of home oxygen. At this time, patient was given cefuroxime for UTI. Otherwise, patient can be discharged home. Patient is not immunized, states that she is afraid of the vaccine. However, I discussed with the patient that she would be a good candidate given her age and comorbidities for COVID-19 monoclonal antibodies. Patient agrees to be referred to the clinic. Form has been emailed Medical Decision Making Lab Data Result diagrams: 03/13/21 02:51 03/13/21 02:51 Labs: Lab Results 03/13/21 03/13/21 03/13/21 Range/Units 02:26 02:51 02:51 WBC 5.4 (4.8-10.8) X10*3/uL RBC 3.59 L (4.20-5.50) X10*6/uL Hgb 10.1 L (12.0-16.0) g/dl Hct 30.7 L (37.0-47.0) % MCV 85.5 (80.0-98.0) fL MCH 28.1 (27.0-33.0) pg MCHC 32.9 (31.0-35.0) g/dl RDW 15.7 (11.0-16.0) % Plt Count 173 (160-400) X10*3/uL MPV 10.7 (9.4-12.3) fL Immature Gran % (Auto) 0.2 (0.0-0.4) % Neut % (Auto) 74.2 H (45-73) % Lymph % (Auto) 15.9 L (20-40) % [place] % (Auto) 9.1 (2-11) % Eos % (Auto) 0.4 (0-4) % Baso % (Auto) 0.2 (0-2) % Lymph # (Auto) 0.9 L (1.2-4.9) X10*3/uL [place] # (Auto) 0.5 (0.1-1.2) X10*3/uL Eos # (Auto) 0.0 (0.0-0.4) X10*3/uL Baso # (Auto) 0.0 (0.0-0.2) X10*3/uL Abs Immat Gran (auto) 0.01 (0.00-0.03) X10*3/uL Absolute Neuts (auto) 4.0 (2.0-8.3) x10*3/uL Absolute Nucleated RBC 0.000 (0.0-0.012) X10*3/uL Nucleated RBC % (auto) 0.0 (0.0-0.2) /100WBC Sodium 139 (135-145) mmol/L Potassium 4.3 (3.3-5.1) mmol/L Chloride 99 (96-108) mmol/L Carbon Dioxide 31 H (22-29) mmol/L Anion Gap 13 (12-20) BUN 29 H (9-16) mg/dL Creatinine 1.47 H (0.5-1.4) mg/dL Estim Creat Clear Calc 54.3 Estimated GFR 35 Random Glucose 105 (60-115) mg/dL Lactic Acid (0.5-2.0) mmol/L Calcium 7.8 L (8.4-10.2) mg/dL Troponin I High Sens (<3.5-17.0) ng/L B-Natriuretic Peptide (<100) pg/mL Urine Color Urine Appearance Urine pH (5.0-8.0) Ur Specific [place] (1.005-1.025) Urine Protein (NEG-TRACE) MG/DL Urine Glucose (UA) (NEG) MG/DL Urine Ketones (NEG) MG/DL Urine Blood (NEG) Urine Nitrite (NEG) Ur Leukocyte Esterase (NEG) Urine RBC (0) /HPF Urine WBC (0-4) /HPF Ur Squamous Epith Cells /LPF Ur Renal Epithelial Cell /LPF Tyrosine Crystals /LPF Urine Bacteria /LPF Urine Mucus /LPF Influenza Type A (PCR) NEGATIVE (Negative) Influenza Type B (PCR) NEGATIVE (Negative) RSV RNA Qual (PCR) NEGATIVE (Negative) SARS-CoV-2 RNA (RT-PCR) POSITIVE A (Negative) 03/13/21 03/13/21 03/13/21 Range/Units 02:51 02:52 04:54 WBC (4.8-10.8) X10*3/uL RBC (4.20-5.50) X10*6/uL Hgb (12.0-16.0) g/dl Hct (37.0-47.0) % MCV (80.0-98.0) fL MCH (27.0-33.0) pg MCHC (31.0-35.0) g/dl RDW (11.0-16.0) % Plt Count (160-400) X10*3/uL MPV (9.4-12.3) fL Immature Gran % (Auto) (0.0-0.4) % Neut % (Auto) (45-73) % Lymph % (Auto) (20-40) % [place] % (Auto) (2-11) % Eos % (Auto) (0-4) % Baso % (Auto) (0-2) % Lymph # (Auto) (1.2-4.9) X10*3/uL [place] # (Auto) (0.1-1.2) X10*3/uL Eos # (Auto) (0.0-0.4) X10*3/uL Baso # (Auto) (0.0-0.2) X10*3/uL Abs Immat Gran (auto) (0.00-0.03) X10*3/uL Absolute Neuts (auto) (2.0-8.3) x10*3/uL Absolute Nucleated RBC (0.0-0.012) X10*3/uL Nucleated RBC % (auto) (0.0-0.2) /100WBC Sodium (135-145) mmol/L Potassium (3.3-5.1) mmol/L Chloride (96-108) mmol/L Carbon Dioxide (22-29) mmol/L Anion Gap (12-20) BUN (9-16) mg/dL Creatinine (0.5-1.4) mg/dL Estim Creat Clear Calc Estimated GFR Random Glucose (60-115) mg/dL Lactic Acid 0.8 (0.5-2.0) mmol/L Calcium (8.4-10.2) mg/dL Troponin I High Sens 23.4 H 23.0 H (<3.5-17.0) ng/L B-Natriuretic Peptide 96 (<100) pg/mL Urine Color Urine Appearance Urine pH (5.0-8.0) Ur Specific [place] (1.005-1.025) Urine Protein (NEG-TRACE) MG/DL Urine Glucose (UA) (NEG) MG/DL Urine Ketones (NEG) MG/DL Urine Blood (NEG) Urine Nitrite (NEG) Ur Leukocyte Esterase (NEG) Urine RBC (0) /HPF Urine WBC (0-4) /HPF Ur Squamous Epith Cells /LPF Ur Renal Epithelial Cell /LPF Tyrosine Crystals /LPF Urine Bacteria /LPF Urine Mucus /LPF Influenza Type A (PCR) (Negative) Influenza Type B (PCR) (Negative) RSV RNA Qual (PCR) (Negative) SARS-CoV-2 RNA (RT-PCR) (Negative) 03/13/21 Range/Units 05:37 WBC (4.8-10.8) X10*3/uL RBC (4.20-5.50) X10*6/uL Hgb (12.0-16.0) g/dl Hct (37.0-47.0) % MCV (80.0-98.0) fL MCH (27.0-33.0) pg MCHC (31.0-35.0) g/dl RDW (11.0-16.0) % Plt Count (160-400) X10*3/uL MPV (9.4-12.3) fL Immature Gran % (Auto) (0.0-0.4) % Neut % (Auto) (45-73) % Lymph % (Auto) (20-40) % [place] % (Auto) (2-11) % Eos % (Auto) (0-4) % Baso % (Auto) (0-2) % Lymph # (Auto) (1.2-4.9) X10*3/uL [place] # (Auto) (0.1-1.2) X10*3/uL Eos # (Auto) (0.0-0.4) X10*3/uL Baso # (Auto) (0.0-0.2) X10*3/uL Abs Immat Gran (auto) (0.00-0.03) X10*3/uL Absolute Neuts (auto) (2.0-8.3) x10*3/uL Absolute Nucleated RBC (0.0-0.012) X10*3/uL Nucleated RBC % (auto) (0.0-0.2) /100WBC Sodium (135-145) mmol/L Potassium (3.3-5.1) mmol/L Chloride (96-108) mmol/L Carbon Dioxide (22-29) mmol/L Anion Gap (12-20) BUN (9-16) mg/dL Creatinine (0.5-1.4) mg/dL Estim Creat Clear Calc Estimated GFR Random Glucose (60-115) mg/dL Lactic Acid (0.5-2.0) mmol/L Calcium (8.4-10.2) mg/dL Troponin I High Sens (<3.5-17.0) ng/L B-Natriuretic Peptide (<100) pg/mL Urine Color YELLOW Urine Appearance HAZY Urine pH 6.0 (5.0-8.0) Ur Specific [place] 1.010 (1.005-1.025) Urine Protein NEG (NEG-TRACE) MG/DL Urine Glucose (UA) NEG (NEG) MG/DL Urine Ketones NEG (NEG) MG/DL Urine Blood 2+ H (NEG) Urine Nitrite NEG (NEG) Ur Leukocyte Esterase 1+ H (NEG) Urine RBC 15-29 H (0) /HPF Urine WBC 15-29 H (0-4) /HPF Ur Squamous Epith Cells TRACE /LPF Ur Renal Epithelial Cell TRACE /LPF Tyrosine Crystals TRACE /LPF Urine Bacteria 2+ /LPF Urine Mucus 1+ /LPF Influenza Type A (PCR) (Negative) Influenza Type B (PCR) (Negative) RSV RNA Qual (PCR) (Negative) SARS-CoV-2 RNA (RT-PCR) (Negative) Discharge Plan Discharge Clinical Impression: COVID-19, Acute UTI Patient Disposition: Home, Self-Care Instructions: COVID-19 (Coronavirus Disease 2019) (ED) Additional Instructions: Please follow-up with the COVID-19 monoclonal clinic. Please call the phone number in the form that is being given to you to ensure they have an appointment. Please follow-up with your primary care physician tomorrow. If you have any worsening or new symptoms, please return to the emergency room or call 911 Prescriptions: New cefuroxime axetil 500 mg tablet 500 mg PO BID Qty: 13 RF: 0 No Action furosemide 40 mg tablet 1 tab PO DAILY RF: 0 fluticasone propion-salmeterol [Advair Diskus] 250-50 mcg/dose blister with device 1 puff PO BID RF: 0 carvedilol 6.25 mg tablet 1 tab PO BID RF: 0 cetirizine 10 mg tablet 1 tab PO DAILY RF: 0 magnesium oxide 400 mg (241.3 mg magnesium) tablet 1 tab PO DAILY RF: 0 levothyroxine 50 mcg tablet 1 tab PO DAILY RF: 0 ferrous sulfate 325 mg (65 mg iron) tablet 1 tab PO DAILY RF: 0 losartan 25 mg tablet 1 tab PO DAILY RF: 0 montelukast 10 mg tablet 1 tab PO BEDTIME RF: 0 ketoconazole 2 % cream 1 appl topical BID RF: 0 ciclopirox 0.77 % cream 1 appl topical BID RF: 0 pregabalin 225 mg capsule 1 cap PO BID RF: 0
--- NOTE | 2021-03-13 03:06 | PC.NURSE ---
Dr Beaver to bedside for eval. Pt resting on stretcher in NAD, breathing with ease on 3L NC baseline, VSS. Pt on bedside cardiac nurse practitioner, NSR. Pt's labs obtained and sent for processing. Pt awaiting CXR and lab results. Pt stretcher is in lowest locked position with rails raised x 2, call alfaro within reach.
[2021-03-13 03:07] LABS: Basophils Percent Auto 0.2 % (0-2); Eosinophils Percent Auto 0.4 % (0-4); Hematocrit 30.7 % (37.0-47.0); Hemoglobin 10.1 g/dl (12.0-16.0); Imm Gran Abs Auto 0.01 X10*3/uL (0.00-0.03); Imm Gran Pct Auto 0.2 % (0.0-0.4); Lymphocytes Absolute Auto 0.9 X10*3/uL (1.2-4.9); Lymphocytes Percent Auto 15.9 % (20-40); Mean Corpuscular HGB Conc 32.9 g/dl (31.0-35.0); Mean Corpuscular Hemoglobin 28.1 pg (27.0-33.0); Mean Corpuscular Volume 85.5 fL (80.0-98.0); Mean Platelet Volume 10.7 fL (9.4-12.3); Monocytes Absolute Auto 0.5 X10*3/uL (0.1-1.2); Monocytes Percent Auto 9.1 % (2-11); Neutrophils Percent Auto 74.2 % (45-73); Platelet Count 173 X10*3/uL (160-400); Red Blood Count 3.59 X10*6/uL (4.20-5.50); Red Cell Distribution Width 15.7 % (11.0-16.0); White Blood Count 5.4 X10*3/uL (4.8-10.8)
[2021-03-13 03:19] LABS: Lactic Acid 0.8 mmol/L (0.5-2.0)
[2021-03-13 03:21] LABS: Anion Gap 13 (12-20); Blood Urea Nitrogen 29 mg/dL (9-16); Calcium 7.8 mg/dL (8.4-10.2); Carbon Dioxide 31 mmol/L (22-29); Chloride 99 mmol/L (96-108); Creatinine Clr Calc Pharmacy 54.3; Estimated Glomerular Filt Rate 35; Glucose Random 105 mg/dL (60-115); Potassium 4.3 mmol/L (3.3-5.1); Sodium 139 mmol/L (135-145)
[2021-03-13] MEDS: Acetaminophen 325 MG TABLET 650 MG PO (03:21)
[2021-03-13 03:27] LABS: B Type Natriuretic Peptide 96 pg/mL (<100); Troponin-I High Sensitivity 23.4 ng/L (<3.5-17.0)
--- NOTE | 2021-03-13 03:35 | PC.NURSE ---
Pt requested that this RN contact her S/O Benoit who is listed as contact in chart. Enrique phone number verified with pt. This RN called phone, no answer, left message regarding pt's positive covid result as pt had requested.
--- NOTE | 2021-03-13 03:43 | PC.NURSE ---
Med Rec completed by this RN using pt's pharmacy information
[2021-03-13 04:00] VITALS: BP 107/42; PULSE 58; RESP 15; TEMP 36.8; O2SAT 99
--- NOTE | 2021-03-13 04:32 | PC.NURSE ---
Pt's VS reassed, stable on baseline O2. Pt boosted to head of bed. Pt afebrile and without complaints at this time. Pt awaiting dispo. Stretcher remains in lowest locked position with rails raised x2, call alfaro within reach.
[2021-03-13 05:46] LABS: Appearance Urine HAZY; Color Urine YELLOW; Glucose Urine UA NEG (NEG); Leukocyte Esterase Urine 1+ (NEG); Nitrite Urine NEG (NEG); UACC Culture Trigger YES; Urine Blood 2+ (NEG); Urine Ketones NEG (NEG); Urine Protein NEG (NEG-TRACE)
[2021-03-13 05:57] LABS: Bacteria Urine 2+ /LPF; Mucus Urine 1+ /LPF; Renal Epithelial Cells Urine TRACE /LPF; Squamous Epithelial Cell Urine TRACE /LPF; Tyrosine Crystal Urine TRACE /LPF
[2021-03-13 06:00] VITALS: BP 108/53; PULSE 63; RESP 12; TEMP 36.8; O2SAT 97
[2021-03-13] MEDS: dexAMETHasone sod phosphate 4 MG/ML VIAL 6 MG IVPUSH (06:29)
[2021-03-13 07:55] VITALS: BP 117/48; PULSE 53; RESP 28; O2SAT 99
== END 2021-03-13 10:15 | disposition home or self-care (01) ==
PROVIDERS: Emergency Provider Emergency Medicine; PCP Internal Medicine
DX: U07.1 COVID-19 (principal); N39.0 Urinary tract infection, site not specified; I10 Essential (primary) hypertension; J45.909 Unspecified asthma, uncomplicated; Z79.899 Other long term (current) drug therapy; Z99.81 Dependence on supplemental oxygen
CPT/HCPCS: 0241U; 36415; 71045; 80048; 81001; 83605; 83880; 84484; 85025; 87040; 87086; 87088; 87147; 87186; 87205; 93005; 99284; J1100

== ENCOUNTER 2021-03-14 10:25 | Inpatient (IN) | payer MEDICARE, MEDICAID, SELFPAY ==
--- NOTE | ~2021-03-14 | XR_ITS ---
EXAMINATION: XR CHEST CLINICAL INFORMATION: Shortness of breath, COVID+ COMPARISON: Chest radiographs 03/13/2021, 11/30/2020 TECHNIQUE: Portable upright AP view of the chest was obtained. FINDINGS: There is trace blunting left costophrenic angle with subsegmental atelectasis left retrocardiac region similar to prior exam 03/13/2021. Small groundglass opacities are suggested on current exam right perihilar and right infrahilar region, not seen with certainty on prior study. There is no lobar segmental airspace consolidation. The cardiac and hilar and mediastinal contours and bony structures are stable. XR/XR chest 1V IMPRESSION: 1. Subtle groundglass opacities right mid and lower zone, new from 03/13/2021. 2. Stable subsegmental atelectasis left retrocardiac region with probable trace left effusion.
[2021-03-14 10:37] VITALS: BP 104/40; PULSE 69; RESP 12; TEMP 36.9; O2SAT 98; BMI 49.9
--- NOTE | 2021-03-14 10:50 | ECG_ITS ---
Test Reason : SHORTNESS OF BREATH Blood Pressure : / mmHG Vent. Rate : 067 BPM Atrial Rate : 067 BPM P-R Int : 172 ms QRS Dur : 134 ms QT Int : 454 ms P-R-T Axes : 021 -39 067 degrees QTc Int : 479 ms Normal sinus rhythm Left axis deviation Left ventricular hypertrophy with QRS widening and repolarization abnormality ( R in aVL , Hraris product ) Abnormal ECG When compared with ECG of 13-MAR-2021 01:53, QRS duration has increased Referred By: Roula Shahid Electronically Signed By:Jem Viera
[2021-03-14 11:13] LABS: MANUAL DIFF FLAG NO
[2021-03-14 11:15] LABS: Basophils Percent Auto 0.1 % (0-2); Hematocrit 31.5 % (37.0-47.0); Hemoglobin 10.3 g/dl (12.0-16.0); Imm Gran Abs Auto 0.05 X10*3/uL (0.00-0.03); Imm Gran Pct Auto 0.5 % (0.0-0.4); Mean Corpuscular HGB Conc 32.7 g/dl (31.0-35.0); Mean Corpuscular Hemoglobin 27.6 pg (27.0-33.0); Mean Corpuscular Volume 84.5 fL (80.0-98.0); Mean Platelet Volume 11.2 fL (9.4-12.3); Monocytes Absolute Auto 0.4 X10*3/uL (0.1-1.2); Monocytes Percent Auto 3.6 % (2-11); Neutrophils Absolute Auto 8.8 x10*3/uL (2.0-8.3); Neutrophils Percent Auto 85.8 % (45-73); Platelet Count 172 X10*3/uL (160-400); Red Blood Count 3.73 X10*6/uL (4.20-5.50); Red Cell Distribution Width 15.9 % (11.0-16.0); White Blood Count 10.2 X10*3/uL (4.8-10.8)
--- NOTE | 2021-03-14 11:19 | ED_ITS ---
HPI - Recheck/Abnormal Lab/Rx General Chief Complaint: Recheck/Abnormal Lab/Rx Stated Complaint: +COVID,SOB Time Seen by Provider: 03/14/21 10:28 Source: patient and EMS Mode of arrival: EMS History of Present Illness HPI narrative: 70-year-old female with a past medical history of morbid obesity, hypertension, asthma, MISSY/obesity hyperventilation chronically on 3 L of nasal cannula oxygen at home on CPAP who was recently diagnosed with COVID-19 on 03/13/2021 presenting to the ED after she was called by LOIS Christensen due to positive blood cultures 1/2 sets blood cultures grew Gram-positive cocci in clusters. Amparo called her to see how she was feeling and the patient told care a that she felt like she was feeling worse and she felt worsening shortness of breath despite being on her 3 L of nasal cannula oxygen at home apparently she took her pulse oximetry while she was on the phone with LOIS Christensen and it was 90% at rest per the patient. She also reports the care that she has had diarrhea. Therefore LOIS Christensen explained to her that if she was having worsening symptoms that she should come to the emergency department for further evaluation treatment. she reports she is currently on Ceftin 500 mg p.o. b.i.d. for UTI that she was diagnosed with yesterday and prescribed by us. She reports she is taking as prescribed. Patient denies any fevers, chills, dizziness, headaches, neck pain/ stiffness, chest pain, abdominal pain, black or bloody stools, nausea /vomiting, back pain, dysuria, calf tenderness or recent travel or any other symptoms complaints or concerns at this time. complaint: abnormal lab ( positive blood cultures) Initial visit (ago): day(s) ( Yesterday 08/2019) Initial visit for: other ( weakness/shortness of breath and diarrhea for 3-5 days diagnosed with COVID yesterday) Returns today for: other ( worsening shortness of breath and diarrhea) Description of abnormal result: see above Context: called for abnormal lab result Associated symptoms: shortness of breath and other ( diarrhea) Treatments prior to arrival: given antibiotics on ( patient is currently on Ceftin 500 mg p.o. b.i.d. she started yesterday for UTI given by us) Related Data Home Medications Medication Instructions Recorded Confirmed carvedilol 6.25 mg tablet 1 tab PO BID 03/13/21 03/13/21 cetirizine 10 mg tablet 1 tab PO DAILY 03/13/21 03/13/21 ciclopirox 0.77 % topical cream 1 appl TOPICAL BID 03/13/21 03/13/21 ferrous sulfate 325 mg (65 mg 1 tab PO DAILY 03/13/21 03/13/21 iron) tablet fluticasone 250 mcg-salmeterol 50 1 puff PO BID 03/13/21 03/13/21 mcg/dose blistr powdr for inhalation (Advair Diskus) furosemide 40 mg tablet 1 tab PO DAILY 03/13/21 03/13/21 ketoconazole 2 % topical cream 1 appl TOPICAL BID 03/13/21 03/13/21 levothyroxine 50 mcg tablet 1 tab PO DAILY 03/13/21 03/13/21 losartan 25 mg tablet 1 tab PO DAILY 03/13/21 03/13/21 magnesium oxide 400 mg (241.3 mg 1 tab PO DAILY 03/13/21 03/13/21 magnesium) tablet montelukast 10 mg tablet 1 tab PO BEDTIME 03/13/21 03/13/21 pregabalin 225 mg capsule 1 cap PO BID 03/13/21 03/13/21 Previous Rx's Medication Instructions Recorded cefuroxime axetil 500 mg tablet 500 mg PO BID #13 tab 03/13/21 Allergies Allergy/AdvReac Type Severity Reaction Status Date / Time celecoxib [From CELEBREX] Allergy Unknown RASH Verified 03/13/21 02:27 Latex, Natural Rubber Allergy Unknown Rash Verified 03/13/21 02:27 ibuprofen [IBUPROFEN] AdvReac Intermediate RASH Verified 03/13/21 02:27 Review of Systems Review of Systems: Constitutional : No Weight loss, No Fever, No Chills, No N ight Sweats, + Fatigue, + Malaise ENT/Mouth : No Hearing loss, No Ear Pain, No Nasal Congestion, No Sinus Pain, No Hoarseness, No sore throat, No Rhinorrhea, No Swallowing Difficulty Eyes: No Eye Pain, No Swelling, No Redness, No Foreign Body, No Discharge, No Vision Changes Cardiovascular : No Chest Pain, + SOB, + Dyspnea on Exertion, + Orthopnea, + LE Edema, No Palpitations Respiratory : + Cough, No Sputum, No Wheezing, No Smoke Exposure, + Dyspnea Gastrointestinal : No Nausea, No Vomiting, No Diarrhea, No Constipation, No abdominal Pain, No Hematochezia, No Melena Genitourinary : no irregular bleeding, No Dysuria, No Urinary Frequency, No Hematuria, No Urinary Incontinence, No Urgency, No Flank Pain, No Urinary Flow Changes, No Hesitancy Musculoskeletal : No joint pain, No Myalgias, No Joint Swelling Skin : No Skin Lesions, No rash Neuro : No Weakness, No Numbness, No Paresthesias, No Loss of Consciousness, No Dizziness, No Headache Psych : No Anxiety/Panic, No Depression, No SI/HI/AH/VH, No Social Issues, Heme/Lymph: No Bruising, No Bleeding,No Lymphadenopathy Endocrine : No Polyuria, No Polydipsia, No Temperature Intolerance Yes all other systems are reviewed and are negative [facility] Past Medical History Attestation statement: The following information was validated with the patient. 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 Housing: Unknown / Unable to assess Housing Other:: [place] Do you presently have visiting nurse or other home services: Yes (pct) Unable to assess alcohol history related to: Unable to respond and Unknown Alcohol intake: unknown Patient Tobacco Use Status: Tobacco use Unknown Advance Directives: Yes Advance Directives Information Provided: Yes Advance Directives on File: No service: No Current occupational status: retired Physical Exam Vital Signs: Vital Signs: Last Vital Signs Temp 98.4 F 03/14/21 10:37 Pulse 60 03/14/21 12:24 Resp 13 03/14/21 12:24 BP 104/40 L 03/14/21 10:37 Pulse Ox 95 03/14/21 12:24 Oxygen Flow Rate 3 03/14/21 10:37 BMI result Body Mass Index 49.9 vital signs have been reviewed as normal and appeared to be correct. Blood pressure hypotensive at 104/40 Heart rate normal. Respiration rate normal. Temperature normal. Oxygen saturation normal On her chronic nasal cannula oxygen Appearance: Alert. Oriented X3. No acute distress. Head: Normal external exam. Normocephalic. Atraumatic. Eyes: PERRLA. EOMI. Conjunctiva and sclera normal. Eyelids normal. ENT: EAC normal. TM's Normal. Pharynx normal. Uvula midline. Moist mucous membranes. No trismus noted. No drooling noted. No muffled voice noted. Neck: Normal inspection. Neck supple. FROM. No adenopathy. Thyroid Normal. No meningeal signs. No neck mass noted. CVS: Normal heart rate and rhythm. Heart sound normal. Pulses normal throughout. No murmurs/rales/gallops. Respiratory: No respiratory distress. Painless inspiration. Decreased breath sounds. Otherwise No wheezes/rales/rhonchi noted. Chest nontender. No accessory muscle usage noted. Abdomen: Soft and nontender. Bowel sounds normal in all 4 quadrants. No distention noted. No organomegaly noted. No visible injury noted. Back: No CVA tenderness. Full range of motion noted. No rashes/lesion/induration/fluctuance or signs of infection noted. Skin: Skin warm and dry. Normal skin color. Normal skin turgor. No rashes/lesions/lacerations noted. Extremities: +1 puitting edema of BL LE's. No calf tenderness is noted.Extremities exhibit normal range of motion. Extremities nontender. Neuro: Oriented X 3. No motor deficit. No sensory deficit. Reflexes normal. Normal steady gait. No focal neuro deficits noted. Vascular: + radial pulses/+ 2 distal pedal pulses/+2 dorsalis pedis b/l. Normal cap refill. No cyanosis noted to upper extremity nails and lower extremity toes nails. Course Course Course Narrative: 11:30am - 70-year-old female with a past medical history of morbid obesity, hypertension, asthma, MISSY/obesity hyperventilation chronically on 3 L of nasal cannula oxygen at home on CPAP who was recently diagnosed with COVID-19 on 03/13/2021 presenting to the ED after she was called by LOIS Christensen due to positive blood cultures 1/2 sets blood cultures grew Gram-positive cocci in clusters. Patient also reports worsening symptoms which includes shortness of breath despite being on her 3 L of nasal cannula oxygen at home and watery diarrhea. Currently on Ceftin 500 mg p.o. b.i.d. for UTI prescribed by us yesterday. Plan: Labs, blood cultures, lactic acid, chest x-ray, EKG then re-evaluate. Reevaluation(s) Reevaluation #1: - labs reviewed and patient with a mild baseline anemia. Carbon dioxide 30. BUN/ creatinine 40/2.06 which is new and worse when compared to prior. Calcium 8.2. Troponin 48.2 repeating pending at this time. BNP 152. Otherwise all other labs are within normal limits. - Chest x-ray revealed ground-glass opacities consistent with COVID-19. - EKG is normal sinus rhythm with left axis deviation with left ventricular hypertrophy with QRS widening and repolarization abnormalities no acute ischemic change are noted. Similar compared to prior EKG. - Therefore at this time I spoke to Dr. Sanchez who will be admitting for positive blood cultures possibly a contaminant no antibiotics will be given at this time as it appears that the patient does not need any at this time. Patient will be admitted for COVID viral syndrome Along with ADVID. Patient understands agrees with this plan. Time: 16:22 MDM - Recheck/Abnormal Lab/Rx Medical Records Attestation: I reviewed the patient's medical records. Lab Data Attestation: I reviewed the patient's lab results. Result diagrams: 03/14/21 11:07 03/14/21 11:07 Labs: Lab Results 03/14/21 03/14/21 03/14/21 Range/Units 11:07 11:07 11:07 WBC 10.2 (4.8-10.8) X10*3/uL RBC 3.73 L (4.20-5.50) X10*6/uL Hgb 10.3 L (12.0-16.0) g/dl Hct 31.5 L (37.0-47.0) % MCV 84.5 (80.0-98.0) fL MCH 27.6 (27.0-33.0) pg MCHC 32.7 (31.0-35.0) g/dl RDW 15.9 (11.0-16.0) % Plt Count 172 (160-400) X10*3/uL MPV 11.2 (9.4-12.3) fL Immature Gran % (Auto) 0.5 H (0.0-0.4) % Neut % (Auto) 85.8 H (45-73) % Lymph % (Auto) 10.0 L (20-40) % [place] % (Auto) 3.6 (2-11) % Eos % (Auto) 0.0 (0-4) % Baso % (Auto) 0.1 (0-2) % Lymph # (Auto) 1.0 L (1.2-4.9) X10*3/uL [place] # (Auto) 0.4 (0.1-1.2) X10*3/uL Eos # (Auto) 0.0 (0.0-0.4) X10*3/uL Baso # (Auto) 0.0 (0.0-0.2) X10*3/uL Abs Immat Gran (auto) 0.05 H (0.00-0.03) X10*3/uL Absolute Neuts (auto) 8.8 H (2.0-8.3) x10*3/uL Absolute Nucleated RBC 0.000 (0.0-0.012) X10*3/uL Nucleated RBC % (auto) 0.0 (0.0-0.2) /100WBC Hold Purple Top PT 13.0 (9.9-13.0) SEC INR 1.1 (0.9-1.1) Sodium 141 (135-145) mmol/L Potassium 4.2 (3.3-5.1) mmol/L Chloride 100 (96-108) mmol/L Carbon Dioxide 30 H (22-29) mmol/L Anion Gap 15 (12-20) BUN 40 H (9-16) mg/dL Creatinine 2.06 H (0.5-1.4) mg/dL Estim Creat Clear Calc 36.6 Estimated GFR 24 Random Glucose 115 (60-115) mg/dL Lactic Acid (0.5-2.0) mmol/L Calcium 8.2 L (8.4-10.2) mg/dL Magnesium 2.1 (1.6-2.6) mg/dL Total Bilirubin 0.9 (0.0-1.0) mg/dL AST 20 D (5-31) U/L ALT 10 (0-31) U/L Alkaline Phosphatase 74 (39-117) U/L Troponin I High Sens (<3.5-17.0) ng/L B-Natriuretic Peptide (<100) pg/mL Total Protein 6.9 D (6.5-8.0) g/dL Albumin 3.5 (3.5-5.0) g/dL Lipase 39 (8-78) U/L 03/14/21 03/14/21 03/14/21 Range/Units 11:07 11:07 11:07 WBC (4.8-10.8) X10*3/uL RBC (4.20-5.50) X10*6/uL Hgb (12.0-16.0) g/dl Hct (37.0-47.0) % MCV (80.0-98.0) fL MCH (27.0-33.0) pg MCHC (31.0-35.0) g/dl RDW (11.0-16.0) % Plt Count (160-400) X10*3/uL MPV (9.4-12.3) fL Immature Gran % (Auto) (0.0-0.4) % Neut % (Auto) (45-73) % Lymph % (Auto) (20-40) % [place] % (Auto) (2-11) % Eos % (Auto) (0-4) % Baso % (Auto) (0-2) % Lymph # (Auto) (1.2-4.9) X10*3/uL [place] # (Auto) (0.1-1.2) X10*3/uL Eos # (Auto) (0.0-0.4) X10*3/uL Baso # (Auto) (0.0-0.2) X10*3/uL Abs Immat Gran (auto) (0.00-0.03) X10*3/uL Absolute Neuts (auto) (2.0-8.3) x10*3/uL Absolute Nucleated RBC (0.0-0.012) X10*3/uL Nucleated RBC % (auto) (0.0-0.2) /100WBC Hold Purple Top SEE NOTE PT (9.9-13.0) SEC INR (0.9-1.1) Sodium (135-145) mmol/L Potassium (3.3-5.1) mmol/L Chloride (96-108) mmol/L Carbon Dioxide (22-29) mmol/L Anion Gap (12-20) BUN (9-16) mg/dL Creatinine (0.5-1.4) mg/dL Estim Creat Clear Calc Estimated GFR Random Glucose (60-115) mg/dL Lactic Acid 1.6 (0.5-2.0) mmol/L Calcium (8.4-10.2) mg/dL Magnesium (1.6-2.6) mg/dL Total Bilirubin (0.0-1.0) mg/dL AST (5-31) U/L ALT (0-31) U/L Alkaline Phosphatase (39-117) U/L Troponin I High Sens 48.2 H D (<3.5-17.0) ng/L B-Natriuretic Peptide 152 H (<100) pg/mL Total Protein (6.5-8.0) g/dL Albumin (3.5-5.0) g/dL Lipase (8-78) U/L 03/14/21 Range/Units 16:13 WBC (4.8-10.8) X10*3/uL RBC (4.20-5.50) X10*6/uL Hgb (12.0-16.0) g/dl Hct (37.0-47.0) % MCV (80.0-98.0) fL MCH (27.0-33.0) pg MCHC (31.0-35.0) g/dl RDW (11.0-16.0) % Plt Count (160-400) X10*3/uL MPV (9.4-12.3) fL Immature Gran % (Auto) (0.0-0.4) % Neut % (Auto) (45-73) % Lymph % (Auto) (20-40) % [place] % (Auto) (2-11) % Eos % (Auto) (0-4) % Baso % (Auto) (0-2) % Lymph # (Auto) (1.2-4.9) X10*3/uL [place] # (Auto) (0.1-1.2) X10*3/uL Eos # (Auto) (0.0-0.4) X10*3/uL Baso # (Auto) (0.0-0.2) X10*3/uL Abs Immat Gran (auto) (0.00-0.03) X10*3/uL Absolute Neuts (auto) (2.0-8.3) x10*3/uL Absolute Nucleated RBC (0.0-0.012) X10*3/uL Nucleated RBC % (auto) (0.0-0.2) /100WBC Hold Purple Top PT (9.9-13.0) SEC INR (0.9-1.1) Sodium (135-145) mmol/L Potassium (3.3-5.1) mmol/L Chloride (96-108) mmol/L Carbon Dioxide (22-29) mmol/L Anion Gap (12-20) BUN (9-16) mg/dL Creatinine (0.5-1.4) mg/dL Estim Creat Clear Calc Estimated GFR Random Glucose (60-115) mg/dL Lactic Acid (0.5-2.0) mmol/L Calcium (8.4-10.2) mg/dL Magnesium (1.6-2.6) mg/dL Total Bilirubin (0.0-1.0) mg/dL AST (5-31) U/L ALT (0-31) U/L Alkaline Phosphatase (39-117) U/L Troponin I High Sens 37.6 H (<3.5-17.0) ng/L B-Natriuretic Peptide (<100) pg/mL Total Protein (6.5-8.0) g/dL Albumin (3.5-5.0) g/dL Lipase (8-78) U/L Imaging Data Chest x-ray: Attestation: I personally reviewed and interpreted this imaging study as follows: Radiologist's impression: FINDINGS: There is trace blunting left costophrenic angle with subsegmental atelectasis left retrocardiac region similar to prior exam 03/13/2021. Small groundglass opacities are suggested on current exam right perihilar and right infrahilar region, not seen with certainty on prior study. There is no lobar segmental airspace consolidation. The cardiac and hilar and mediastinal contours and bony structures are stable. XR/XR chest 1V IMPRESSION: ? 1. Subtle groundglass opacities right mid and lower zone, new from 03/13/2021. 2. Stable subsegmental atelectasis left retrocardiac region with probable trace left effusion. ? ECG Data Attestation: I personally reviewed and interpreted this ECG as follows: ECG interpretation date: 03/14/21 ECG interpretation time: 10:46 Interpretation: normal sinus rhythm with a ventricular rate of 67 with a left axis deviation and left ventricular hypertrophy with QRS widening and repolarization abnormality no acute ischemic changes are noted. Similar when compared to prior EKG on 03/13/2021. Critical Care Time Critical Care Time Critical Care Time: Yes Total Critical Care Time: 60 Attestation: I personally attest to this time spent taking care of the patient Discharge Plan Discharge Clinical Impression: Positive blood culture, DAVID (acute kidney injury), COVID-19 Patient Disposition: Admitted As Inpatient
[2021-03-14 11:21] LABS: INTERNATIONAL NORM RATIO 1.1 (0.9-1.1)
[2021-03-14 11:26] LABS: Lactic Acid 1.6 mmol/L (0.5-2.0)
[2021-03-14 11:32] LABS: Alanine Aminotransferase 10 U/L (0-31); Albumin Level 3.5 g/dL (3.5-5.0); Alkaline Phosphatase 74 U/L (39-117); Anion Gap 15 (12-20); Aspartate Amino Transferase 20 U/L (5-31); Bilirubin Total 0.9 mg/dL (0.0-1.0); Blood Urea Nitrogen 40 mg/dL (9-16); Calcium 8.2 mg/dL (8.4-10.2); Carbon Dioxide 30 mmol/L (22-29); Chloride 100 mmol/L (96-108); Creatinine Clr Calc Pharmacy 36.6; Estimated Glomerular Filt Rate 24; Glucose Random 115 mg/dL (60-115); Lipase 39 U/L (8-78); Magnesium 2.1 mg/dL (1.6-2.6); Potassium 4.2 mmol/L (3.3-5.1); Sodium 141 mmol/L (135-145); Total Protein 6.9 g/dL (6.5-8.0)
[2021-03-14 11:36] LABS: B Type Natriuretic Peptide 152 pg/mL (<100)
[2021-03-14] MEDS: 0.9 % Sodium Chloride 1,000 ML 999 ML IVCONT (11:57)
[2021-03-14 12:24] VITALS: PULSE 60; RESP 13; O2SAT 95
[2021-03-14 12:38] LABS: Troponin-I High Sensitivity 48.2 ng/L (<3.5-17.0)
--- NOTE | 2021-03-14 16:30 | PM.IMHP ---
History of Present Illness Date of Service: 03/14/21 Chief Complaint: Decreased oral intake, positive blood culture A 70 years old lady with PMH of asthma, HTN, I LD, COPD, MISSY who presents to the hospital with increased weakness and decreased oral intake. She was called by the emergency for positive blood culture. She reports that since starting the COVID Disease her oral intake has decreased significantly and she is feeling very weak and could not tolerate diet. Denies any vomiting but she feels mildly nauseous and with no appetite. She was in the emergency the day before and was diagnosed with COVID and found to have UTI treated with antibiotics. Found to have acute kidney injury Advanced for further evaluation and treatment. 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 Housing: Unknown / Unable to assess Housing Other:: [employer] Do you presently have visiting nurse or other home services: Yes (pct) Unable to assess alcohol history related to: Unable to respond and Unknown Alcohol intake: unknown Patient Tobacco Use Status: Tobacco use Unknown Advance Directives: Yes Advance Directives Information Provided: Yes Advance Directives on File: No service: No Current occupational status: retired Meds Allergies Allergy/AdvReac Type Severity Reaction Status Date / Time celecoxib [From CELEBREX] Allergy Unknown RASH Verified 03/13/21 02:27 Latex, Natural Rubber Allergy Unknown Rash Verified 03/13/21 02:27 ibuprofen [IBUPROFEN] AdvReac Intermediate RASH Verified 03/13/21 02:27 Active Medications: Current Medications Pharmacy Consult (Consult Rx Perform Med Rec) 1 each MISCELLANE ONCE PRN PRN Reason: Consult order Home Medications Medication Instructions Recorded Confirmed Last Taken Type carvedilol 6.25 mg tablet 1 tab PO BID 03/13/21 03/13/21 Unknown History cetirizine 10 mg tablet 1 tab PO DAILY 03/13/21 03/13/21 Unknown History ciclopirox 0.77 % topical cream 1 appl TOPICAL BID 03/13/21 03/13/21 Unknown History ferrous sulfate 325 mg (65 mg 1 tab PO DAILY 03/13/21 03/13/21 Unknown History iron) tablet fluticasone 250 mcg-salmeterol 50 1 puff PO BID 03/13/21 03/13/21 Unknown History mcg/dose blistr powdr for inhalation (Advair Diskus) furosemide 40 mg tablet 1 tab PO DAILY 03/13/21 03/13/21 Unknown History ketoconazole 2 % topical cream 1 appl TOPICAL BID 03/13/21 03/13/21 Unknown History levothyroxine 50 mcg tablet 1 tab PO DAILY 03/13/21 03/13/21 Unknown History losartan 25 mg tablet 1 tab PO DAILY 03/13/21 03/13/21 Unknown History magnesium oxide 400 mg (241.3 mg 1 tab PO DAILY 03/13/21 03/13/21 Unknown History magnesium) tablet montelukast 10 mg tablet 1 tab PO BEDTIME 03/13/21 03/13/21 Unknown History pregabalin 225 mg capsule 1 cap PO BID 03/13/21 03/13/21 Unknown History Physical Exam Vital Signs and Narrative: Vital Signs: Last Vital Signs Temp 98.4 F 03/14/21 10:37 Pulse 60 03/14/21 12:24 Resp 13 03/14/21 12:24 BP 104/40 L 03/14/21 10:37 Pulse Ox 95 03/14/21 12:24 Oxygen Flow Rate 3 03/14/21 10:37 BMI result Body Mass Index 49.9 Const: Other: Constitutional : Alert, oriented, looks lethargic and tired Neck : Normal inspection, Supple Cardiovascular : RRR, S1 S2, no lower extremity edema Respiratory : Decrease bilateral air entry, no crackles, wheezes or rhonchi Gastrointestinal: soft, lax, Normal bowel sounds, Non tender Skin : Warm, Dry Neurological : Alert & oriented x3, No focal deficit Results Labs CBC and Chem 7: 03/14/21 11:07 03/14/21 11:07 Labs: Laboratory Results - last 24 hr 03/14/21 03/14/21 03/14/21 11:07 11:07 11:07 MCV 84.5 MCH 27.6 MCHC 32.7 RDW 15.9 Plt Count 172 MPV 11.2 Immature Gran % (Auto) 0.5 H Neut % (Auto) 85.8 H Lymph % (Auto) 10.0 L [place] % (Auto) 3.6 Eos % (Auto) 0.0 Baso % (Auto) 0.1 Lymph # (Auto) 1.0 L [place] # (Auto) 0.4 Eos # (Auto) 0.0 Baso # (Auto) 0.0 Abs Immat Gran (auto) 0.05 H Absolute Neuts (auto) 8.8 H Absolute Nucleated RBC 0.000 Nucleated RBC % (auto) 0.0 Hold Purple Top PT 13.0 INR 1.1 Anion Gap 15 Estim Creat Clear Calc 36.6 Estimated GFR 24 Random Glucose 115 Lactic Acid Calcium 8.2 L Magnesium 2.1 Total Bilirubin 0.9 AST 20 D ALT 10 Alkaline Phosphatase 74 Troponin I High Sens B-Natriuretic Peptide Total Protein 6.9 D Albumin 3.5 Lipase 39 03/14/21 03/14/21 03/14/21 11:07 11:07 11:07 MCV MCH MCHC RDW Plt Count MPV Immature Gran % (Auto) Neut % (Auto) Lymph % (Auto) [place] % (Auto) Eos % (Auto) Baso % (Auto) Lymph # (Auto) [place] # (Auto) Eos # (Auto) Baso # (Auto) Abs Immat Gran (auto) Absolute Neuts (auto) Absolute Nucleated RBC Nucleated RBC % (auto) Hold Purple Top SEE NOTE PT INR Anion Gap Estim Creat Clear Calc Estimated GFR Random Glucose Lactic Acid 1.6 Calcium Magnesium Total Bilirubin AST ALT Alkaline Phosphatase Troponin I High Sens 48.2 H D B-Natriuretic Peptide 152 H Total Protein Albumin Lipase Imaging Radiologist's Impressions: Impressions Chest X-Ray 03/14/21 11:20 IMPRESSION: 1. Subtle groundglass opacities right mid and lower zone, new from 03/13/2021. 2. Stable subsegmental atelectasis left retrocardiac region with probable trace left effusion. Assessment and Plan (1) COVID-19: Status: Acute (2) Positive blood culture: Status: Acute (3) DAVID (acute kidney injury): Status: Acute A 70 years old lady with PMH of asthma, HTN, I LD, COPD, MISSY who presents to the hospital with increased weakness and decreased oral intake. She was called by the emergency for positive blood culture. Positive blood culture One bottle from 2 Seems to be contaminant Hold on antibiotic Pending finalized blood culture Acute kidney injury Secondary to dehydration from decreased oral intake Start gentle hydration Intake and output Monitor urge BMP COVID-19 infection Use oxygen if needed Isolation unit DVT PPX Heparin Quality Stroke Does the patient have a stroke diagnosis?: No VTE Prior VTE?: No VTE Risk Level:: Medical - moderate - high VTE Device Contraindication: Treatment Not Indicated VTE Drug Contraindication: N/A - Med Ordered
[2021-03-14 16:37] LABS: Troponin-I High Sensitivity 37.6 ng/L (<3.5-17.0)
[2021-03-14] MEDS: Heparin Sodium,Porcine 5,000 UNIT/ML VIAL 5000 UNIT SUBCUT (16:53)
[2021-03-14] MEDS: 0.9 % Sodium Chloride 1,000 ML 100 ML IVCONT (16:53)
--- NOTE | 2021-03-14 18:09 | PHA.MEDREC ---
Pharmacy Consult ? Medication Reconciliation Pharmacy has completed the medication reconciliation. There are no remarkable issues for provider's attention. Patricia Belle, MackenzieD
[2021-03-14 20:49] VITALS: BP 126/45; PULSE 63
[2021-03-14 20:50] VITALS: BP 126/46; PULSE 64; RESP 15; TEMP 37
[2021-03-15] VITALS (9 sets, daily range): BP systolic 115–168; BP diastolic 53–87; PULSE 50–79; RESP 16–21; TEMP 36.1–38.8; O2SAT 91–100
[2021-03-15] MEDS: Heparin Sodium,Porcine 5,000 UNIT/ML VIAL 5000 UNIT SUBCUT ×2 (05:31→17:48)
[2021-03-15 07:16] LABS: Hemoglobin 10.8 g/dl (12.0-16.0); Red Cell Distribution Width 16.1 % (11.0-16.0)
[2021-03-15 07:18] LABS: Hematocrit 33.5 % (37.0-47.0); Mean Corpuscular HGB Conc 32.2 g/dl (31.0-35.0); Mean Corpuscular Volume 86.8 fL (80.0-98.0); Mean Platelet Volume 11.2 fL (9.4-12.3); Red Blood Count 3.86 X10*6/uL (4.20-5.50)
[2021-03-15 07:20] LABS: Platelet Count 146 X10*3/uL (160-400)
[2021-03-15 07:31] LABS: Anion Gap 18 (12-20); Blood Urea Nitrogen 34 mg/dL (9-16); Carbon Dioxide 26 mmol/L (22-29); Chloride 106 mmol/L (96-108); Creatinine Clr Calc Pharmacy 50.2; Estimated Glomerular Filt Rate 35; Glucose Random 106 mg/dL (60-115); Potassium 4.5 mmol/L (3.3-5.1); Sodium 145 mmol/L (135-145)
--- NOTE | 2021-03-15 08:39 | MHC.CM.PN ---
CM spoke with Patient's S.O./HCP/Edward at [phone]; Patient is Covid Positive and documented to feel very weak.Patient has lived in an apartment with her S.O./Edward for 40 years and she uses a walker to assist with mobility and 3L home O2 from [facility].Patient has had [facility] and been at [facility] in the past for STR.Goal for dc is home/new [facility] vs STR (possible at [facility]); CM has initiated and will follow for dc planning.IMM addressed with Benoit since Patient is Covid (+) and the original will be mailed out certified letter to him and a copy has been placed on the chart.PCP is Dr. Bryanna Gama.
--- NOTE | 2021-03-15 09:30 | HO.PM.IMPN ---
Subjective Subjective Date of Service: 03/15/21 Interval History: the patient was seen and evaluated this morning Laying in bed, feels more short of breath and lethargic Having fever overnight of 102 Increased oxygen requirement of 3 L No reported other overnight events. Systemic review: Reporting o fever, chills and generalized weakness No chest pain, palpitation Increase shortness of breath or coughing No abdominal pain, nausea or vomiting No urinary symptoms No any rash or wounds Physical Exam Vital Signs: Vital Signs: Last Vital Signs Temp 101.8 F H 03/15/21 07:07 Pulse 77 03/15/21 07:07 Resp 21 H 03/15/21 07:07 BP 168/70 H 03/15/21 07:07 Pulse Ox 91 L 03/15/21 07:07 Oxygen Flow Rate 3 03/14/21 10:37 BMI result Body Mass Index 49.9 Const: Other: Constitutional : Alert,, looks lethargic and tired, on oxygen supplement Neck : Normal inspection, Supple Cardiovascular : RRR, S1 S2, no lower extremity edema Respiratory : Decrease bilateral air entry, no crackles, wheezes or rhonchi, in mild respiratory distress Gastrointestinal: soft, lax, Normal bowel sounds, Non tender Skin : Warm, Dry Neurological : Alert & oriented x3, No focal deficit Objective Data Active Medications Acetaminophen (Acetaminophen 325 Mg Tablet) 650 mg PO Q6H PRN PRN Reason: Pain, Mild (Pain Scale 1-3) Atorvastatin Calcium (Atorvastatin Calcium 10 Mg Tablet) 10 mg PO BEDTIME [facility] Carvedilol (Carvedilol 6.25 Mg Tablet) 6.25 mg PO BID [facility]; Protocol Last Admin: 03/14/21 20:49 Dose: Not Given Documented by: EVANGELIST Non-Admin Reason: BP 126/45 Dexamethasone Sodium Phosphate (Dexamethasone Sod Phosphate 4 Mg/Ml Vial) 6 mg IVPUSH DAILY [facility] Dicyclomine HCl (Dicyclomine Hcl 10 Mg Capsule) 10 mg PO QID PRN PRN Reason: diarrhea Heparin Sodium (Porcine) (Heparin Sodium,Porcine 5,000 Unit/Ml Vial) 5,000 unit SUBCUT Q12H [facility] Last Admin: 03/15/21 05:31 Dose: 5,000 unit Documented by: AMAURY Sodium Chloride (Ns) 1,000 mls @ 100 mls/hr IVCONT .Q10H [facility] Last Admin: 03/14/21 16:53 Dose: 100 mls/hr Documented by: SELIN Ceftriaxone Sodium 1 gm/ (Sodium Chloride) 50 mls @ 100 mls/hr IV Q24H [facility] Levothyroxine Sodium (Levothyroxine Sodium 50 Mcg Tablet) 50 mcg PO DAILY@0600 [facility] Magnesium Oxide (Magnesium Oxide 400 Mg Tablet) 400 mg PO DAILY [facility] Montelukast Sodium (Montelukast Sodium 10 Mg Tablet) 10 mg PO BEDTIME [facility] Omeprazole (Omeprazole 40 Mg Capsule.Dr) 40 mg PO DAILY@0630 [facility] Ondansetron HCl (Ondansetron Hcl 4 Mg/2 Ml Vial) 4 mg IVPUSH Q8H PRN PRN Reason: Nausea and Vomiting Pharmacy Consult (Consult Rx Perform Med Rec) 1 each MISCELLANE ONCE PRN PRN Reason: Consult order Pregabalin (Pregabalin 75 Mg Capsule) 225 mg PO BID [facility] Sodium Chloride (0.9 % Sodium Chloride Flush 3 Ml Syringe) 3 ml IVFLUSH QSHIFT [facility] Last Admin: 03/15/21 01:39 Dose: Not Given Documented by: AMAURY Non-Admin Reason: IV Running Labs CBC & Chem 7: 03/15/21 06:52 03/15/21 06:52 Labs: Laboratory Results - last 24 hr 03/14/21 03/14/21 03/14/21 11:07 11:07 11:07 MCV 84.5 MCH 27.6 MCHC 32.7 RDW 15.9 Plt Count 172 MPV 11.2 Immature Gran % (Auto) 0.5 H Neut % (Auto) 85.8 H Lymph % (Auto) 10.0 L [place] % (Auto) 3.6 Eos % (Auto) 0.0 Baso % (Auto) 0.1 Lymph # (Auto) 1.0 L [place] # (Auto) 0.4 Eos # (Auto) 0.0 Baso # (Auto) 0.0 Abs Immat Gran (auto) 0.05 H Absolute Neuts (auto) 8.8 H Absolute Nucleated RBC 0.000 Nucleated RBC % (auto) 0.0 Hold Purple Top PT 13.0 INR 1.1 Anion Gap 15 Estim Creat Clear Calc 36.6 Estimated GFR 24 Random Glucose 115 Lactic Acid Calcium 8.2 L Magnesium 2.1 Total Bilirubin 0.9 AST 20 D ALT 10 Alkaline Phosphatase 74 Troponin I High Sens B-Natriuretic Peptide Total Protein 6.9 D Albumin 3.5 Lipase 39 03/14/21 03/14/21 03/14/21 11:07 11:07 11:07 MCV MCH MCHC RDW Plt Count MPV Immature Gran % (Auto) Neut % (Auto) Lymph % (Auto) [place] % (Auto) Eos % (Auto) Baso % (Auto) Lymph # (Auto) [place] # (Auto) Eos # (Auto) Baso # (Auto) Abs Immat Gran (auto) Absolute Neuts (auto) Absolute Nucleated RBC Nucleated RBC % (auto) Hold Purple Top SEE NOTE PT INR Anion Gap Estim Creat Clear Calc Estimated GFR Random Glucose Lactic Acid 1.6 Calcium Magnesium Total Bilirubin AST ALT Alkaline Phosphatase Troponin I High Sens 48.2 H D B-Natriuretic Peptide 152 H Total Protein Albumin Lipase 03/14/21 03/15/21 03/15/21 16:13 06:52 06:52 MCV 86.8 MCH 28.0 MCHC 32.2 RDW 16.1 H Plt Count 146 L MPV 11.2 Immature Gran % (Auto) Neut % (Auto) Lymph % (Auto) [place] % (Auto) Eos % (Auto) Baso % (Auto) Lymph # (Auto) [place] # (Auto) Eos # (Auto) Baso # (Auto) Abs Immat Gran (auto) Absolute Neuts (auto) Absolute Nucleated RBC 0.000 Nucleated RBC % (auto) 0.0 Hold Purple Top PT INR Anion Gap 18 Estim Creat Clear Calc 50.2 Estimated GFR 35 Random Glucose 106 Lactic Acid Calcium 8.0 L Magnesium Total Bilirubin AST ALT Alkaline Phosphatase Troponin I High Sens 37.6 H B-Natriuretic Peptide Total Protein Albumin Lipase Assessment and Plan (1) COVID-19: Status: Acute (2) Positive blood culture: Status: Acute (3) DAVID (acute kidney injury): Status: Acute (4) UTI (urinary tract infection): Status: Acute (5) Acute respiratory failure with hypoxia: Status: Acute Assessment and Plan: A 70 years old lady with PMH of asthma, HTN, I LD, COPD, MISSY who presents to the hospital with increased weakness and decreased oral intake. She was called by the emergency for positive blood culture. # Acute hypoxia respiratory failure # 2/2 COVID-19 infection Worsened overnight, spiking fever, requiring 3 L of oxygen now Start dexamethasone To get ID evaluation for possible remdesivir Wean oxygen down as tolerated Use Tylenol as needed # Positive blood culture One bottle from 2 Seems to be contaminant Hold on antibiotic Pending finalized blood culture # Acute kidney injury Secondary to dehydration from decreased oral intake Start gentle hydration Intake and output Monitor urge BMP # UTI Urine looks infected, pending cultures Start ceftriaxone DVT PPX Heparin Quality Stroke Does the patient have a stroke diagnosis?: No VTE Prior VTE?: No VTE Risk Level:: Medical - moderate - high VTE Device Contraindication: Treatment Not Indicated VTE Drug Contraindication: N/A - Med Ordered
[2021-03-15] MEDS: cefTRIAXone sodium 1 GM in 0.9 % Sodium Chloride 50 ML IV (09:35)
[2021-03-15] MEDS: 0.9 % Sodium Chloride 1,000 ML 100 ML IVCONT ×2 (09:36→20:50)
[2021-03-15] MEDS: Pregabalin 75 MG CAPSULE 225 MG PO ×2 (09:36→20:50)
[2021-03-15] MEDS: carvediloL 6.25 MG TABLET PO (09:36)
[2021-03-15] MEDS: Omeprazole 40 MG CAPSULE.DR PO (09:36)
[2021-03-15] MEDS: dexAMETHasone sod phosphate 4 MG/ML VIAL 6 MG IVPUSH (09:37)
[2021-03-15] MEDS: Magnesium Oxide 400 MG TABLET PO (09:37)
[2021-03-15] MEDS: Acetaminophen 325 MG TABLET 650 MG PO ×2 (11:38→17:48)
--- NOTE | 2021-03-15 12:34 | P.CDIC_ITS ---
CDI Concurrent Query Documentation Clarification: PHYSICIAN'S DOCUMENTATION REQUEST Date of Query: 03/15/21 1234 Patient Name: Jocelynn Fernando Admit Date: 03/14/21 Dear Doctor, A review of the medical record indicates additional documentation may be needed. Please review below and update the documentation accordingly. Clinical Indicators: Risk Factors/Clinical Indicators/Treatments ED: Chronically on 3 liters of [place] oxygen at home. Covid-19 with acute hypoxic respiratory failure. Shortness of breath, MISSY, RR 22/28 on 3 Liters oxygen. Clarify which of the following accurately represents the patient's respiratory status: * Acute hypoxic respiratory failure * Acute on chronic hypoxic respiratory failure * Other (please specify) * Unable to determine Use of terms such as suspected, likely, concern for, or probable (associated with a specific diagnosis that is being evaluated, monitored, or treated as if it exists) are acceptable and can be coded in the inpatient setting, when documented at the time of discharge. Thank you, Tala Guaman [facility], CDIS Extension: [phone] Please use your independent medical judgment in providing your response. THIS QUERY IS PART OF THE PERMANENT MEDICAL RECORD Provider Response: Other Other Diagnosis: Chronic hypoxia respiratory failure
[2021-03-15] MEDS: Remdesivir 200 MG in 0.9 % Sodium Chloride 210 ML 105 MG IV (17:48)
[2021-03-15] MEDS: 0.9 % Sodium Chloride Flush 3 ML SYRINGE IVFLUSH (17:49)
[2021-03-15] MEDS: Atorvastatin Calcium 10 MG TABLET PO (20:50)
[2021-03-15] MEDS: Montelukast Sodium 10 MG TABLET PO (20:50)
--- NOTE | 2021-03-15 23:13 | W.PM.IDCN ---
History of Present Illness Data of Consult Service Date: 03/15/21 Requesting physician: Osvaldo Peres Primary Care Provider: Unknown Physician HPI Reason for consult: COVID She presents to hospital with shortness of breath and cough and myalgia. She has had symptoms within four days She has COVID She has blood coagulase negative staph She has had treatment with Cephalosporin for UTI Review of Systems Review of Systems: Yes all other systems are reviewed and are negative PMFSH Past Medical History Medical History Asthma Diarrhea GERD (gastroesophageal reflux disease) Hypercholesteremia Hypertension Interstitial lung disease Neuropathy Seasonal allergies Thyroid activity decreased Family History Family history: reviewed and not pertinent Surgical History Surgical History H/O: hysterectomy History of cholecystectomy Social History Social History Household Members: Spouse 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 If so, by whom?: No Do you feel safe in your current relationship?: No Is there a partner from a previous relationship who is making you feel unsafe now?: No Are you made to feel afraid or neglected: No Advance Directives: No Advance Directives Information Provided: Yes Advance Directives on File: No Do you have thoughts of harming others: None Do you have a plan to hurt others: No Plan Recently lost weight without trying: No service: No Current occupational status: retired Meds Allergies Allergy/AdvReac Type Severity Reaction Status Date / Time celecoxib [From CELEBREX] Allergy Unknown RASH Verified 03/13/21 02:27 Latex, Natural Rubber Allergy Unknown Rash Verified 03/13/21 02:27 ibuprofen [IBUPROFEN] AdvReac Intermediate RASH Verified 03/13/21 02:27 Active Medications: Current Medications Acetaminophen (Acetaminophen 325 Mg Tablet) 650 mg PO Q6H PRN PRN Reason: Pain, Mild (Pain Scale 1-3) Acetaminophen (Acetaminophen 325 Mg Tablet) 650 mg PO Q6H [facility] Stop: 03/17/21 05:31 Last Admin: 03/15/21 17:48 Dose: 650 mg Documented by: Atorvastatin Calcium (Atorvastatin Calcium 10 Mg Tablet) 10 mg PO BEDTIME [facility] Last Admin: 03/15/21 20:50 Dose: 10 mg Documented by: Carvedilol (Carvedilol 6.25 Mg Tablet) 6.25 mg PO BID [facility]; Protocol Last Admin: 03/15/21 20:53 Dose: Not Given Documented by: Dexamethasone Sodium Phosphate (Dexamethasone Sod Phosphate 4 Mg/Ml Vial) 6 mg IVPUSH DAILY [facility] Last Admin: 03/15/21 09:37 Dose: 6 mg Documented by: Dicyclomine HCl (Dicyclomine Hcl 10 Mg Capsule) 10 mg PO QID PRN PRN Reason: diarrhea Heparin Sodium (Porcine) (Heparin Sodium,Porcine 5,000 Unit/Ml Vial) 5,000 unit SUBCUT Q12H [facility] Last Admin: 03/15/21 17:48 Dose: 5,000 unit Documented by: Sodium Chloride (Ns) 1,000 mls @ 100 mls/hr IVCONT .Q10H [facility] Last Admin: 03/15/21 22:27 Dose: Not Given Documented by: Ceftriaxone Sodium 1 gm/ (Sodium Chloride) 50 mls @ 100 mls/hr IV Q24H [facility] Last Infusion: 03/15/21 11:28 Dose: Infused Documented by: Remdesivir 100 mg/ Sodium (Chloride) 230 mls @ 115 mls/hr IV Q24H [facility] Stop: 03/19/21 18:59 Levothyroxine Sodium (Levothyroxine Sodium 50 Mcg Tablet) 50 mcg PO DAILY@0600 [facility] Magnesium Oxide (Magnesium Oxide 400 Mg Tablet) 400 mg PO DAILY [facility] Last Admin: 03/15/21 09:37 Dose: 400 mg Documented by: Montelukast Sodium (Montelukast Sodium 10 Mg Tablet) 10 mg PO BEDTIME [facility] Last Admin: 03/15/21 20:50 Dose: 10 mg Documented by: Omeprazole (Omeprazole 40 Mg Capsule.) 40 mg PO DAILY@0630 [facility] Last Admin: 03/15/21 09:36 Dose: 40 mg Documented by: Ondansetron HCl (Ondansetron Hcl 4 Mg/2 Ml Vial) 4 mg IVPUSH Q8H PRN PRN Reason: Nausea and Vomiting Pharmacy Consult (Consult Rx Perform Med Rec) 1 each MISCELLANE ONCE PRN PRN Reason: Consult order Pregabalin (Pregabalin 75 Mg Capsule) 225 mg PO BID [facility] Last Admin: 03/15/21 20:50 Dose: 225 mg Documented by: Sodium Chloride (0.9 % Sodium Chloride Flush 3 Ml Syringe) 3 ml IVFLUSH QSHIFT [facility] Last Admin: 03/15/21 17:49 Dose: 3 ml Documented by: Home Medications Medication Instructions Recorded Confirmed Last Taken Type carvedilol 6.25 mg tablet 1 tab PO BID 03/13/21 03/14/21 03/13/21 History cetirizine 10 mg tablet 1 tab PO DAILY 03/13/21 03/14/21 03/13/21 History ciclopirox 0.77 % topical cream 1 appl TOPICAL BID 03/13/21 03/14/21 03/13/21 History ferrous sulfate 325 mg (65 mg 1 tab PO DAILY 03/13/21 03/14/21 03/13/21 History iron) tablet fluticasone 250 mcg-salmeterol 50 1 puff PO BID 03/13/21 03/14/21 03/13/21 History mcg/dose blistr powdr for inhalation (Advair Diskus) furosemide 40 mg tablet 1 tab PO DAILY 03/13/21 03/14/21 03/13/21 History ketoconazole 2 % topical cream 1 appl TOPICAL BID 03/13/21 03/14/21 03/13/21 History levothyroxine 50 mcg tablet 1 tab PO DAILY 03/13/21 03/14/21 03/13/21 History losartan 25 mg tablet 1 tab PO DAILY 03/13/21 03/14/21 03/13/21 History magnesium oxide 400 mg (241.3 mg 1 tab PO DAILY 03/13/21 03/14/21 03/13/21 History magnesium) tablet montelukast 10 mg tablet 1 tab PO BEDTIME 03/13/21 03/14/21 03/13/21 History pregabalin 225 mg capsule 1 cap PO BID 03/13/21 03/14/21 03/13/21 History atorvastatin 10 mg tablet 1 tab PO BEDTIME 03/14/21 03/14/21 03/13/21 History dicyclomine 10 mg capsule 1 cap PO QID PRN 03/14/21 03/14/21 Unknown History pantoprazole 40 mg tablet,delayed 1 tab PO DAILY 03/14/21 03/14/21 03/13/21 History release Physical Exam Vital Signs: Vital Signs: Last Vital Signs Temp 97.6 F 03/15/21 19:47 Pulse 54 03/15/21 20:53 Resp 17 03/15/21 19:47 BP 122/58 L 03/15/21 19:47 Pulse Ox 94 03/15/21 19:47 Oxygen Flow Rate 3 03/14/21 10:37 BMI result Body Mass Index 49.9 Const: General: cooperative Eyes: General: appearance normal, both eyes and all related structures Pupils: Equal, round and reactive pupils present Resp: Effort & Inspection: normal respiratory effort Cardio: Rate: regular rate Rhythm: regular rhythm GI: Palpation (GI): Soft to palpation and nontender Neuro: Cranial nerves: Yes Equal, round and reactive pupils present Extrem: General: Yes normal to inspection Results Labs CBC & Chem 7: 03/15/21 06:52 03/15/21 06:52 Labs: Short CBC 03/15/21 Range/Units 06:52 WBC 8.0 (4.8-10.8) X10*3/uL Hgb 10.8 L (12.0-16.0) g/dl Hct 33.5 L (37.0-47.0) % Plt Count 146 L (160-400) X10*3/uL BMP 03/15/21 06:52 Sodium 145 Potassium 4.5 Chloride 106 Carbon Dioxide 26 BUN 34 H Creatinine 1.50 H Calcium 8.0 L Microbiology Microbiology Results: Microbiology 03/14/21 11:13 Blood - Venous Blood Culture - Preliminary No growth after 24 hours. 03/14/21 11:07 Blood - Venous Blood Culture - Preliminary No growth after 24 hours. Assessment and Plan (1) Acute respiratory failure with hypoxia: Status: Acute She has COVID She has recent onset and worsening oxygen requirements Would give Dexamethasone Would give Remdesivir No treatment blood culture as contaminant. May finish po Ceftin for total 10 d (2) Positive blood culture: Status: Acute (3) UTI (urinary tract infection): Status: Acute (4) COVID-19: Status: Acute
[2021-03-16] MEDS: 0.9 % Sodium Chloride Flush 3 ML SYRINGE IVFLUSH (00:08)
[2021-03-16] MEDS: Acetaminophen 325 MG TABLET 650 MG PO ×4 (00:08→18:28)
[2021-03-16 03:20] VITALS: BP 149/67; PULSE 48; RESP 16; TEMP 36.6; O2SAT 94
[2021-03-16] MEDS: Levothyroxine Sodium 50 MCG TABLET PO (06:22)
[2021-03-16] MEDS: Omeprazole 40 MG CAPSULE.DR PO (06:22)
[2021-03-16] MEDS: Heparin Sodium,Porcine 5,000 UNIT/ML VIAL 5000 UNIT SUBCUT ×2 (06:22→18:27)
[2021-03-16 07:18] VITALS: BP 142/78; PULSE 82; RESP 20; TEMP 35.9; O2SAT 93
[2021-03-16 07:22] LABS: Hematocrit 33.4 % (37.0-47.0); Hemoglobin 10.6 g/dl (12.0-16.0); Mean Corpuscular HGB Conc 31.7 g/dl (31.0-35.0); Mean Corpuscular Hemoglobin 27.2 pg (27.0-33.0); Mean Corpuscular Volume 85.9 fL (80.0-98.0); Mean Platelet Volume 11.2 fL (9.4-12.3); Platelet Count 152 X10*3/uL (160-400); Red Blood Count 3.89 X10*6/uL (4.20-5.50); Red Cell Distribution Width 16.3 % (11.0-16.0); White Blood Count 5.9 X10*3/uL (4.8-10.8)
[2021-03-16 07:35] LABS: C Reactive Protein 17.78 mg/dL (< or = 0.50); Lactate Dehydrogenase 468 U/L (122-220)
[2021-03-16 07:45] LABS: Anion Gap 14 (12-20); Blood Urea Nitrogen 44 mg/dL (9-16); Carbon Dioxide 26 mmol/L (22-29); Chloride 114 mmol/L (96-108); Creatinine Clr Calc Pharmacy 49.6; Estimated Glomerular Filt Rate 34; Glucose Random 136 mg/dL (60-115); Potassium 3.9 mmol/L (3.3-5.1); Sodium 150 mmol/L (135-145)
[2021-03-16] MEDS: 0.9 % Sodium Chloride 1,000 ML 100 ML IVCONT (08:04)
[2021-03-16 08:05] VITALS: BP 142/78; PULSE 82
[2021-03-16] MEDS: dexAMETHasone sod phosphate 4 MG/ML VIAL 6 MG IVPUSH (08:05)
[2021-03-16] MEDS: carvediloL 6.25 MG TABLET PO (08:05)
[2021-03-16] MEDS: Pregabalin 75 MG CAPSULE 225 MG PO ×2 (08:05→20:28)
[2021-03-16] MEDS: cefTRIAXone sodium 1 GM in 0.9 % Sodium Chloride 50 ML IV (08:05)
[2021-03-16] MEDS: Magnesium Oxide 400 MG TABLET PO (08:05)
[2021-03-16] MEDS: guaiFENesin 200 MG/10 ML 10 ML LIQUID PO ×2 (09:46→22:32)
[2021-03-16] MEDS: Dextrose 5 % 1,000 ML 100 ML IVCONT (09:46)
[2021-03-16 10:52] VITALS: BP 130/60; PULSE 54; RESP 20; TEMP 35.8; O2SAT 97
--- NOTE | 2021-03-16 12:13 | P.PNIM_ITS ---
Subjective Subjective Date of Service: 03/16/21 Interval History: sob interval history: close to baseline, no appetite Cardiovascular Cardiovascular: Reports no additional cardiovascular complaints Gastrointestinal Gastrointestinal: Reports no additional gastrointestinal complaints Physical Exam Vital Signs: Vital Signs: Last Vital Signs Temp 96.4 F L 03/16/21 10:52 Pulse 54 03/16/21 10:52 Resp 20 03/16/21 10:52 BP 130/60 03/16/21 10:52 Pulse Ox 97 03/16/21 10:52 Oxygen Flow Rate 3 03/14/21 10:37 BMI result Body Mass Index 49.9 Const Other:?Constitutional : Alert,, looks lethargic and tired, on oxygen supplement Neck : Normal inspection, Supple Cardiovascular : RRR, S1 S2, no lower extremity edema Respiratory :? Decrease bilateral air entry,? no crackles, wheezes or rhonchi, in mild respiratory distress Gastrointestinal:? soft, lax, Normal bowel sounds, Non tender Skin : Warm, Dry Neurological : Alert & oriented x3, No focal deficit Objective Data Active Medications Acetaminophen (Acetaminophen 325 Mg Tablet) 650 mg PO Q6H PRN PRN Reason: Pain, Mild (Pain Scale 1-3) Acetaminophen (Acetaminophen 325 Mg Tablet) 650 mg PO Q6H [facility] Stop: 03/17/21 05:31 Last Admin: 03/16/21 06:21 Dose: 650 mg Documented by: YENNY Atorvastatin Calcium (Atorvastatin Calcium 10 Mg Tablet) 10 mg PO BEDTIME [facility] Last Admin: 03/15/21 20:50 Dose: 10 mg Documented by: BITA Carvedilol (Carvedilol 6.25 Mg Tablet) 6.25 mg PO BID [facility]; Protocol Last Admin: 03/16/21 08:05 Dose: 6.25 mg Documented by: MARY Dexamethasone Sodium Phosphate (Dexamethasone Sod Phosphate 4 Mg/Ml Vial) 6 mg IVPUSH DAILY [facility] Last Admin: 03/16/21 08:05 Dose: 6 mg Documented by: MARY Dicyclomine HCl (Dicyclomine Hcl 10 Mg Capsule) 10 mg PO QID PRN PRN Reason: diarrhea Guaifenesin (Guaifenesin 200 Mg/10 Ml 10 Ml Liquid) 10 ml PO Q6H PRN PRN Reason: Cough Last Admin: 03/16/21 09:46 Dose: 10 ml Documented by: MARY Heparin Sodium (Porcine) (Heparin Sodium,Porcine 5,000 Unit/Ml Vial) 5,000 unit SUBCUT Q12H [facility] Last Admin: 03/16/21 06:22 Dose: 5,000 unit Documented by: YENNY Ceftriaxone Sodium 1 gm/ (Sodium Chloride) 50 mls @ 100 mls/hr IV Q24H [facility] Last Infusion: 03/16/21 08:44 Dose: 0 mls/hr Documented by: MARY Remdesivir 100 mg/ Sodium (Chloride) 230 mls @ 115 mls/hr IV Q24H [facility] Stop: 03/19/21 18:59 Dextrose (D5w) 1,000 mls @ 100 mls/hr IVCONT .Q10H [facility] Last Admin: 03/16/21 09:46 Dose: 100 mls/hr Documented by: MARY Levothyroxine Sodium (Levothyroxine Sodium 50 Mcg Tablet) 50 mcg PO DAILY@0600 [facility] Last Admin: 03/16/21 06:22 Dose: 50 mcg Documented by: YENNY Magnesium Oxide (Magnesium Oxide 400 Mg Tablet) 400 mg PO DAILY [facility] Last Admin: 03/16/21 08:05 Dose: 400 mg Documented by: MARY Montelukast Sodium (Montelukast Sodium 10 Mg Tablet) 10 mg PO BEDTIME [facility] Last Admin: 03/15/21 20:50 Dose: 10 mg Documented by: BITA Omeprazole (Omeprazole 40 Mg Capsule.Dr) 40 mg PO DAILY@0630 [facility] Last Admin: 03/16/21 06:22 Dose: 40 mg Documented by: YENNY Ondansetron HCl (Ondansetron Hcl 4 Mg/2 Ml Vial) 4 mg IVPUSH Q8H PRN PRN Reason: Nausea and Vomiting Pharmacy Consult (Consult Rx Perform Med Rec) 1 each MISCELLANE ONCE PRN PRN Reason: Consult order Pregabalin (Pregabalin 75 Mg Capsule) 225 mg PO BID [facility] Last Admin: 03/16/21 08:05 Dose: 225 mg Documented by: MARY Sodium Chloride (0.9 % Sodium Chloride Flush 3 Ml Syringe) 3 ml IVFLUSH QSHIFT [facility] Last Admin: 03/16/21 07:51 Dose: Not Given Documented by: MARY Non-Admin Reason: IV Running Labs CBC & Chem 7: 03/16/21 06:59 03/16/21 06:59 Labs: Laboratory Results - last 24 hr 03/16/21 03/16/21 03/16/21 06:59 06:59 06:59 MCV 85.9 MCH 27.2 MCHC 31.7 RDW 16.3 H Plt Count 152 L MPV 11.2 Absolute Nucleated RBC 0.000 Nucleated RBC % (auto) 0.0 Anion Gap 14 Estim Creat Clear Calc 49.6 Estimated GFR 34 Random Glucose 136 H Calcium 8.0 L Lactate Dehydrogenase 468 H C-Reactive Protein 17.78 H Microbiology Microbiology Results: Microbiology 03/14/21 11:13 Blood Culture - Preliminary Blood - Venous No growth after 24 hours. 03/14/21 11:07 Blood Culture - Preliminary Blood - Venous No growth after 24 hours. Assessment and Plan (1) COVID-19: Status: Acute (2) Positive blood culture: Status: Acute (3) DAVID (acute kidney injury): Status: Acute (4) UTI (urinary tract infection): Status: Acute (5) Acute respiratory failure with hypoxia: Status: Acute Assessment and Plan: A 70 years old lady with PMH of asthma, HTN, I LD, COPD, MISSY who presented to [facility] with increased weakness and decreased oral intake. She was called by the emergency for positive blood culture. Acute on chronic hypoxia respiratory failure (normally on 3L home o2) 2/2 COVID-19 pneumonia continue dexamethasone remdesivir coag negative staph on blood culture contaminant Acute kidney injury improving hypernatremia change to D5w monitor UTI ecoli continue ceftriaxone DVT PPX Heparin Quality Stroke Does the patient have a stroke diagnosis?: No VTE Prior VTE?: No VTE Risk Level:: Medical - moderate - high VTE Device Contraindication: Treatment Not Indicated VTE Drug Contraindication: N/A - Med Ordered
[2021-03-16 15:59] VITALS: BP 134/60; PULSE 97; RESP 19; TEMP 37.1; O2SAT 97
[2021-03-16] MEDS: Remdesivir 100 MG in 0.9 % Sodium Chloride 230 ML 115 MG IV (18:28)
[2021-03-16 19:50] VITALS: BP 137/64; PULSE 48; RESP 18; TEMP 37.2; O2SAT 92
[2021-03-16] MEDS: Montelukast Sodium 10 MG TABLET PO (20:28)
[2021-03-16] MEDS: Atorvastatin Calcium 10 MG TABLET PO (20:29)
[2021-03-16] MEDS: Dicyclomine HCl 10 MG CAPSULE PO (22:32)
[2021-03-17] VITALS (10 sets, daily range): BP systolic 126–153; BP diastolic 63–74; PULSE 46–56; RESP 18–22; TEMP 35.5–37; O2SAT 90–93
[2021-03-17] MEDS: 0.9 % Sodium Chloride Flush 3 ML SYRINGE IVFLUSH ×4 (00:32→21:03)
[2021-03-17] MEDS: Acetaminophen 325 MG TABLET 650 MG PO ×3 (00:32→21:03)
[2021-03-17] MEDS: Levothyroxine Sodium 50 MCG TABLET PO (06:10)
[2021-03-17] MEDS: Heparin Sodium,Porcine 5,000 UNIT/ML VIAL 5000 UNIT SUBCUT ×2 (06:10→16:51)
[2021-03-17] MEDS: guaiFENesin 200 MG/10 ML 10 ML LIQUID PO ×2 (06:10→21:03)
[2021-03-17] MEDS: Omeprazole 40 MG CAPSULE.DR PO (06:11)
[2021-03-17 07:53] LABS: Hematocrit 32.3 % (37.0-47.0); Hemoglobin 10.4 g/dl (12.0-16.0); Mean Corpuscular HGB Conc 32.2 g/dl (31.0-35.0); Mean Corpuscular Volume 83.9 fL (80.0-98.0); Mean Platelet Volume 11.4 fL (9.4-12.3); Platelet Count 161 X10*3/uL (160-400); Red Blood Count 3.85 X10*6/uL (4.20-5.50); Red Cell Distribution Width 16.1 % (11.0-16.0); White Blood Count 9.3 X10*3/uL (4.8-10.8)
[2021-03-17 08:27] LABS: Anion Gap 14 (12-20); Blood Urea Nitrogen 45 mg/dL (9-16); Calcium 7.6 mg/dL (8.4-10.2); Carbon Dioxide 24 mmol/L (22-29); Chloride 106 mmol/L (96-108); Creatinine Clr Calc Pharmacy 53.4; Estimated Glomerular Filt Rate 37; Glucose Fasting 162 mg/dL (60-99); Potassium 3.7 mmol/L (3.3-5.1); Sodium 140 mmol/L (135-145)
[2021-03-17] MEDS: dexAMETHasone sod phosphate 4 MG/ML VIAL 6 MG IVPUSH (08:45)
[2021-03-17] MEDS: Pregabalin 75 MG CAPSULE 225 MG PO ×2 (08:45→21:02)
[2021-03-17] MEDS: Magnesium Oxide 400 MG TABLET PO (08:45)
[2021-03-17] MEDS: cefTRIAXone sodium 1 GM in 0.9 % Sodium Chloride 50 ML IV (08:46)
--- NOTE | 2021-03-17 10:43 | HO.PM.IMPN ---
Subjective Subjective Date of Service: 03/17/21 Interval History: sob interval history: close to baseline, improved appetite Cardiovascular Cardiovascular: Reports no additional cardiovascular complaints Respiratory Respiratory: Reports no additional respiratory complaints Physical Exam Vital Signs: Vital Signs: Last Vital Signs Temp 96 F L 03/17/21 07:02 Pulse 46 L 03/17/21 09:07 Resp 22 H 03/17/21 07:02 BP 144/74 H 03/17/21 07:02 Pulse Ox 92 03/17/21 07:02 Oxygen Flow Rate 3 03/14/21 10:37 BMI result Body Mass Index 49.9 Const Other:?Constitutional : Alert,, looks lethargic and tired, on oxygen supplement Neck : Normal inspection, Supple Cardiovascular : RRR, S1 S2, no lower extremity edema Respiratory :? Decrease bilateral air entry,? no crackles, wheezes or rhonchi, in mild respiratory distress Gastrointestinal:? soft, lax, Normal bowel sounds, Non tender Skin : Warm, Dry Neurological : Alert & oriented x3, No focal deficit Objective Data Active Medications Acetaminophen (Acetaminophen 325 Mg Tablet) 650 mg PO Q6H PRN PRN Reason: Pain, Mild (Pain Scale 1-3) Atorvastatin Calcium (Atorvastatin Calcium 10 Mg Tablet) 10 mg PO BEDTIME [facility] Last Admin: 03/16/21 20:29 Dose: 10 mg Documented by: CHASE Carvedilol (Carvedilol 6.25 Mg Tablet) 6.25 mg PO BID [facility]; Protocol Last Admin: 03/17/21 09:07 Dose: Not Given Documented by: ESMER Non-Admin Reason: constantin Dexamethasone Sodium Phosphate (Dexamethasone Sod Phosphate 4 Mg/Ml Vial) 6 mg IVPUSH DAILY [facility] Last Admin: 03/17/21 08:45 Dose: 6 mg Documented by: ESMER Dicyclomine HCl (Dicyclomine Hcl 10 Mg Capsule) 10 mg PO QID PRN PRN Reason: diarrhea Last Admin: 03/16/21 22:32 Dose: 10 mg Documented by: CHASE Guaifenesin (Guaifenesin 200 Mg/10 Ml 10 Ml Liquid) 10 ml PO Q6H PRN PRN Reason: Cough Last Admin: 03/17/21 06:10 Dose: 10 ml Documented by: CHASE Heparin Sodium (Porcine) (Heparin Sodium,Porcine 5,000 Unit/Ml Vial) 5,000 unit SUBCUT Q12H [facility] Last Admin: 03/17/21 06:10 Dose: 5,000 unit Documented by: CHASE Ceftriaxone Sodium 1 gm/ (Sodium Chloride) 50 mls @ 100 mls/hr IV Q24H [facility] Last Infusion: 03/17/21 09:26 Dose: 0 mls/hr Documented by: ESMER Remdesivir 100 mg/ Sodium (Chloride) 230 mls @ 115 mls/hr IV Q24H [facility] Stop: 03/19/21 18:59 Last Infusion: 03/16/21 20:30 Dose: 0 mls/hr Documented by: CHASE Levothyroxine Sodium (Levothyroxine Sodium 50 Mcg Tablet) 50 mcg PO DAILY@0600 [facility] Last Admin: 03/17/21 06:10 Dose: 50 mcg Documented by: CHASE Magnesium Oxide (Magnesium Oxide 400 Mg Tablet) 400 mg PO DAILY [facility] Last Admin: 03/17/21 08:45 Dose: 400 mg Documented by: ESMER Montelukast Sodium (Montelukast Sodium 10 Mg Tablet) 10 mg PO BEDTIME [facility] Last Admin: 03/16/21 20:28 Dose: 10 mg Documented by: CHASE Omeprazole (Omeprazole 40 Mg Capsule.) 40 mg PO DAILY@0630 [facility] Last Admin: 03/17/21 06:11 Dose: 40 mg Documented by: CHASE Ondansetron HCl (Ondansetron Hcl 4 Mg/2 Ml Vial) 4 mg IVPUSH Q8H PRN PRN Reason: Nausea and Vomiting Pharmacy Consult (Consult Rx Perform Med Rec) 1 each MISCELLANE ONCE PRN PRN Reason: Consult order Pregabalin (Pregabalin 75 Mg Capsule) 225 mg PO BID [facility] Last Admin: 03/17/21 08:45 Dose: 225 mg Documented by: ESMER Sodium Chloride (0.9 % Sodium Chloride Flush 3 Ml Syringe) 3 ml IVFLUSH QSHIFT [facility] Last Admin: 03/17/21 08:46 Dose: 3 ml Documented by: ESMER Labs CBC & Chem 7: 03/17/21 07:01 03/17/21 07:01 Labs: Laboratory Results - last 24 hr 03/17/21 03/17/21 07:01 07:01 MCV 83.9 MCH 27.0 MCHC 32.2 RDW 16.1 H Plt Count 161 MPV 11.4 Absolute Nucleated RBC 0.000 Nucleated RBC % (auto) 0.0 Anion Gap 14 Estim Creat Clear Calc 53.4 Estimated GFR 37 Fasting Glucose 162 H Calcium 7.6 L Microbiology Microbiology Results: Microbiology 03/14/21 11:13 Blood Culture - Preliminary Blood - Venous No growth after 48 hours. 03/14/21 11:07 Blood Culture - Preliminary Blood - Venous No growth after 48 hours. Assessment and Plan (1) COVID-19: Status: Acute (2) Positive blood culture: Status: Acute (3) DAVID (acute kidney injury): Status: Acute (4) UTI (urinary tract infection): Status: Acute (5) Acute respiratory failure with hypoxia: Status: Acute Assessment and Plan: A 70 years old lady with PMH of asthma, HTN, I LD, COPD, MISSY who presented to the hospital with increased weakness and decreased oral intake. She was called by the emergency for positive blood culture. Acute on chronic hypoxia respiratory failure (normally on 3L home o2) 2/2 COVID-19 pneumonia continue dexamethasone remdesivir day 2 coag negative staph on blood culture contaminant Acute kidney injury improving hypernatremia rsolved, stop d5w monitor UTI ecoli continue ceftriaxone day 3 DVT PPX Heparin Quality Stroke Does the patient have a stroke diagnosis?: No VTE Prior VTE?: No VTE Risk Level:: Medical - moderate - high VTE Device Contraindication: Treatment Not Indicated VTE Drug Contraindication: N/A - Med Ordered
[2021-03-17] MEDS: Remdesivir 100 MG in 0.9 % Sodium Chloride 230 ML 115 MG IV (16:51)
[2021-03-17] MEDS: Montelukast Sodium 10 MG TABLET PO (21:02)
[2021-03-17] MEDS: Atorvastatin Calcium 10 MG TABLET PO (22:12)
[2021-03-18] VITALS (8 sets, daily range): BP systolic 146–171; BP diastolic 66–76; PULSE 53–80; RESP 18–22; TEMP 35.9–36.7; O2SAT 88–91
--- NOTE | 2021-03-18 03:18 | PC.NURSE ---
reported to Dr. Godfrey sentara [facility] pt reports anxiety. prn atarax new order received. once available, retrieved med & pt upon entry to room sleeping. will continue to assess & medicate as needed.
[2021-03-18] MEDS: Heparin Sodium,Porcine 5,000 UNIT/ML VIAL 5000 UNIT SUBCUT ×2 (05:27→17:31)
[2021-03-18] MEDS: Levothyroxine Sodium 50 MCG TABLET PO (05:28)
[2021-03-18] MEDS: Omeprazole 40 MG CAPSULE.DR PO (05:28)
--- NOTE | 2021-03-18 05:34 | PC.NURSE ---
this morning, this rn offered pt anxiety med, but denies anxiety, therefore declines med. pt aware atarax is a mild anti-anxiety med that is ordered as needed and if she becomes anxious, it is available to her. pt verbalizes understanding.
[2021-03-18 06:32] LABS: Hematocrit 33.1 % (37.0-47.0); Hemoglobin 10.9 g/dl (12.0-16.0); Mean Corpuscular HGB Conc 32.9 g/dl (31.0-35.0); Mean Corpuscular Hemoglobin 27.3 pg (27.0-33.0); Mean Corpuscular Volume 82.8 fL (80.0-98.0); Mean Platelet Volume 11.3 fL (9.4-12.3); Platelet Count 167 X10*3/uL (160-400); Red Cell Distribution Width 15.6 % (11.0-16.0); White Blood Count 8.3 X10*3/uL (4.8-10.8)
[2021-03-18 07:26] LABS: Anion Gap 16 (12-20); Blood Urea Nitrogen 38 mg/dL (9-16); Calcium 7.7 mg/dL (8.4-10.2); Carbon Dioxide 21 mmol/L (22-29); Chloride 107 mmol/L (96-108); Creatinine Clr Calc Pharmacy 67.8; Estimated Glomerular Filt Rate 49; Glucose Fasting 139 mg/dL (60-99); Potassium 3.6 mmol/L (3.3-5.1); Sodium 140 mmol/L (135-145)
[2021-03-18] MEDS: 0.9 % Sodium Chloride Flush 3 ML SYRINGE IVFLUSH ×3 (08:58→20:18)
[2021-03-18] MEDS: Pregabalin 75 MG CAPSULE 225 MG PO ×2 (08:59→20:22)
[2021-03-18] MEDS: dexAMETHasone sod phosphate 4 MG/ML VIAL 6 MG IVPUSH (08:59)
[2021-03-18] MEDS: Magnesium Oxide 400 MG TABLET PO (08:59)
[2021-03-18] MEDS: cefTRIAXone sodium 1 GM in 0.9 % Sodium Chloride 50 ML IV (09:03)
--- NOTE | 2021-03-18 09:42 | MHC.CM.PN ---
Per MD, Patient is not yet medically cleared for dc (IV Ceftriaxone, IV Decadrom, IV Remdesivir);Home/resume VNA VS STR pending PT eval is the goal for dc and CM will continue to follow.
--- NOTE | 2021-03-18 10:16 | HO.PM.IMPN ---
Subjective Subjective Date of Service: 03/18/21 Interval History: sob interval history: close to baseline, improved appetite Cardiovascular Cardiovascular: Reports no additional cardiovascular complaints Respiratory Respiratory: Reports no additional respiratory complaints Physical Exam Vital Signs: Vital Signs: Last Vital Signs Temp 97.8 F 03/18/21 08:00 Pulse 57 03/18/21 08:00 Resp 18 03/18/21 08:00 BP 162/72 H 03/18/21 08:00 Pulse Ox 91 L 03/18/21 08:00 Oxygen Flow Rate 3 03/14/21 10:37 BMI result Body Mass Index 49.9 Const Other:?Constitutional : Alert,, looks lethargic and tired, on oxygen supplement Neck : Normal inspection, Supple Cardiovascular : RRR, S1 S2, no lower extremity edema Respiratory :? Decrease bilateral air entry,? no crackles, wheezes or rhonchi, in mild respiratory distress Gastrointestinal:? soft, lax, Normal bowel sounds, Non tender Skin : Warm, Dry Neurological : Alert & oriented x3, No focal deficit Objective Data Active Medications Acetaminophen (Acetaminophen 325 Mg Tablet) 650 mg PO Q6H PRN PRN Reason: Pain, Mild (Pain Scale 1-3) Last Admin: 03/17/21 21:03 Dose: 650 mg Documented by: CHASE Atorvastatin Calcium (Atorvastatin Calcium 10 Mg Tablet) 10 mg PO BEDTIME [facility] Last Admin: 03/17/21 22:12 Dose: 10 mg Documented by: CHASE Carvedilol (Carvedilol 6.25 Mg Tablet) 6.25 mg PO BID [facility]; Protocol Last Admin: 03/18/21 08:59 Dose: Not Given Documented by: ESMER Non-Admin Reason: BP too low Dexamethasone Sodium Phosphate (Dexamethasone Sod Phosphate 4 Mg/Ml Vial) 6 mg IVPUSH DAILY [facility] Last Admin: 03/18/21 08:59 Dose: 6 mg Documented by: ESMER Dicyclomine HCl (Dicyclomine Hcl 10 Mg Capsule) 10 mg PO QID PRN PRN Reason: diarrhea Last Admin: 03/16/21 22:32 Dose: 10 mg Documented by: CHASE Guaifenesin (Guaifenesin 200 Mg/10 Ml 10 Ml Liquid) 10 ml PO Q6H PRN PRN Reason: Cough Last Admin: 03/17/21 21:03 Dose: 10 ml Documented by: CHASE Heparin Sodium (Porcine) (Heparin Sodium,Porcine 5,000 Unit/Ml Vial) 5,000 unit SUBCUT Q12H [facility] Last Admin: 03/18/21 05:27 Dose: 5,000 unit Documented by: CHASE Hydroxyzine HCl (Hydroxyzine Hcl 25 Mg Tablet) 25 mg PO Q6H PRN PRN Reason: anxiety/restlessness Ceftriaxone Sodium 1 gm/ (Sodium Chloride) 50 mls @ 100 mls/hr IV Q24H [facility] Last Infusion: 03/18/21 09:46 Dose: 0 mls/hr Documented by: ESMER Remdesivir 100 mg/ Sodium (Chloride) 230 mls @ 115 mls/hr IV Q24H [facility] Stop: 03/19/21 18:59 Last Infusion: 03/17/21 18:54 Dose: 0 mls/hr Documented by: ESMER Levothyroxine Sodium (Levothyroxine Sodium 50 Mcg Tablet) 50 mcg PO DAILY@0600 [facility] Last Admin: 03/18/21 05:28 Dose: 50 mcg Documented by: CHASE Magnesium Oxide (Magnesium Oxide 400 Mg Tablet) 400 mg PO DAILY [facility] Last Admin: 03/18/21 08:59 Dose: 400 mg Documented by: ESMER Montelukast Sodium (Montelukast Sodium 10 Mg Tablet) 10 mg PO BEDTIME [facility] Last Admin: 03/17/21 21:02 Dose: 10 mg Documented by: CHASE Morphine Sulfate (Morphine Sulfate 2 Mg/Ml Cartridge) 1 mg IVPUSH Q4H PRN; Protocol PRN Reason: Breakthrough Pain Omeprazole (Omeprazole 40 Mg Capsule.) 40 mg PO DAILY@0630 [facility] Last Admin: 03/18/21 05:28 Dose: 40 mg Documented by: CHASE Ondansetron HCl (Ondansetron Hcl 4 Mg/2 Ml Vial) 4 mg IVPUSH Q8H PRN PRN Reason: Nausea and Vomiting Pharmacy Consult (Consult Rx Perform Med Rec) 1 each MISCELLANE ONCE PRN PRN Reason: Consult order Pregabalin (Pregabalin 75 Mg Capsule) 225 mg PO BID [facility] Last Admin: 03/18/21 08:59 Dose: 225 mg Documented by: ESMER Sodium Chloride (0.9 % Sodium Chloride Flush 3 Ml Syringe) 3 ml IVFLUSH QSHIFT [facility] Last Admin: 03/18/21 08:58 Dose: 3 ml Documented by: ESMER Labs CBC & Chem 7: 03/18/21 06:15 03/18/21 06:15 Labs: Laboratory Results - last 24 hr 03/18/21 03/18/21 06:15 06:15 MCV 82.8 MCH 27.3 MCHC 32.9 RDW 15.6 Plt Count 167 MPV 11.3 Absolute Nucleated RBC 0.000 Nucleated RBC % (auto) 0.0 Anion Gap 16 Estim Creat Clear Calc 67.8 Estimated GFR 49 Fasting Glucose 139 H Calcium 7.7 L Assessment and Plan (1) COVID-19: Status: Acute (2) Positive blood culture: Status: Acute (3) DAVID (acute kidney injury): Status: Acute (4) UTI (urinary tract infection): Status: Acute (5) Acute respiratory failure with hypoxia: Status: Acute Assessment and Plan: A 70 years old lady with PMH of asthma, HTN, I LD, COPD, MISSY who presented to the hospital with increased weakness and decreased oral intake. She was called by the emergency for positive blood culture. Acute on chronic hypoxia respiratory failure (normally on 3L home o2) 2/2 COVID-19 pneumonia continue dexamethasone remdesivir day 3/5 coag negative staph on blood culture contaminant Acute kidney injury resolved hypernatremia resolved, now off d5w and maintaining sodium monitor UTI ecoli continue ceftriaxone day 4 DVT PPX Heparin Quality Stroke Does the patient have a stroke diagnosis?: No VTE Prior VTE?: No VTE Risk Level:: Medical - moderate - high VTE Device Contraindication: Treatment Not Indicated VTE Drug Contraindication: N/A - Med Ordered
[2021-03-18] MEDS: Remdesivir 100 MG in 0.9 % Sodium Chloride 230 ML 115 MG IV (17:32)
[2021-03-18] MEDS: Atorvastatin Calcium 10 MG TABLET PO (20:21)
[2021-03-18] MEDS: Montelukast Sodium 10 MG TABLET PO (20:21)
[2021-03-18] MEDS: Acetaminophen 325 MG TABLET 650 MG PO (20:28)
[2021-03-18] MEDS: Losartan Potassium 25 MG TABLET PO (20:42)
[2021-03-19] VITALS (9 sets, daily range): BP systolic 128–198; BP diastolic 62–83; PULSE 53–101; RESP 18–20; TEMP 36.1–37.3; O2SAT 87–93
[2021-03-19] MEDS: Levothyroxine Sodium 50 MCG TABLET PO (05:03)
[2021-03-19] MEDS: Omeprazole 40 MG CAPSULE.DR PO (05:03)
[2021-03-19] MEDS: guaiFENesin 200 MG/10 ML 10 ML LIQUID PO ×2 (05:03→20:50)
[2021-03-19] MEDS: Heparin Sodium,Porcine 5,000 UNIT/ML VIAL 5000 UNIT SUBCUT ×2 (05:11→17:45)
--- NOTE | 2021-03-19 05:24 | PC.NURSE ---
Pt complaining of SOB. Pt on 5L satting 90%. Ventolin inhaler PRN ordered. Pt now refusing.
[2021-03-19 06:49] LABS: Hematocrit 33.1 % (37.0-47.0); Hemoglobin 10.9 g/dl (12.0-16.0); Mean Corpuscular HGB Conc 32.9 g/dl (31.0-35.0); Mean Corpuscular Hemoglobin 26.9 pg (27.0-33.0); Mean Corpuscular Volume 81.7 fL (80.0-98.0); Platelet Count 176 X10*3/uL (160-400); Red Blood Count 4.05 X10*6/uL (4.20-5.50); Red Cell Distribution Width 15.5 % (11.0-16.0); White Blood Count 8.2 X10*3/uL (4.8-10.8)
[2021-03-19 07:12] LABS: Anion Gap 14 (12-20); Blood Urea Nitrogen 31 mg/dL (9-16); Calcium 7.7 mg/dL (8.4-10.2); Carbon Dioxide 24 mmol/L (22-29); Chloride 106 mmol/L (96-108); Creatinine Clr Calc Pharmacy 80.1; Estimated Glomerular Filt Rate 59; Glucose Fasting 143 mg/dL (60-99); Potassium 3.8 mmol/L (3.3-5.1); Sodium 140 mmol/L (135-145)
[2021-03-19] MEDS: Pregabalin 75 MG CAPSULE 225 MG PO ×2 (08:39→20:31)
[2021-03-19] MEDS: carvediloL 6.25 MG TABLET PO ×2 (08:43→20:31)
[2021-03-19] MEDS: dexAMETHasone sod phosphate 4 MG/ML VIAL 6 MG IVPUSH (08:45)
[2021-03-19] MEDS: Magnesium Oxide 400 MG TABLET PO (08:45)
[2021-03-19] MEDS: cefTRIAXone sodium 1 GM in 0.9 % Sodium Chloride 50 ML IV (08:46)
[2021-03-19] MEDS: 0.9 % Sodium Chloride Flush 3 ML SYRINGE IVFLUSH ×3 (08:46→20:32)
--- NOTE | 2021-03-19 10:18 | HO.PM.IMPN ---
Subjective Subjective Date of Service: 03/19/21 Interval History: ?sob interval history: close to baseline, improved appetite Cardiovascular Cardiovascular: Reports no additional cardiovascular complaints Respiratory Respiratory: Reports no additional respiratory complaints Physical Exam Vital Signs: Vital Signs: Last Vital Signs Temp 97.6 F 03/19/21 07:59 Pulse 73 03/19/21 08:43 Resp 18 03/19/21 07:59 BP 198/83 H 03/19/21 08:43 Pulse Ox 92 03/19/21 07:59 Oxygen Flow Rate 3 03/14/21 10:37 BMI result Body Mass Index 49.9 Const Other:?Constitutional : Alert,, looks lethargic and tired, on oxygen supplement Neck : Normal inspection, Supple Cardiovascular : RRR, S1 S2, no lower extremity edema Respiratory :? Decrease bilateral air entry,? no crackles, wheezes or rhonchi, in mild respiratory distress Gastrointestinal:? soft, lax, Normal bowel sounds, Non tender Skin : Warm, Dry Neurological : Alert & oriented x3, No focal deficit Objective Data Active Medications Acetaminophen (Acetaminophen 325 Mg Tablet) 650 mg PO Q6H PRN PRN Reason: Pain, Mild (Pain Scale 1-3) Last Admin: 03/18/21 20:28 Dose: 650 mg Documented by: MAIRA Albuterol Sulfate (Albuterol Sulfate 90 Mcg 8 Gm Inhaler) 4 puff INHALE Q2H PRN PRN Reason: Shortness of Breath/Wheezing Atorvastatin Calcium (Atorvastatin Calcium 10 Mg Tablet) 10 mg PO BEDTIME [facility] Last Admin: 03/18/21 20:21 Dose: 10 mg Documented by: MAIRA Carvedilol (Carvedilol 6.25 Mg Tablet) 6.25 mg PO BID [facility]; Protocol Last Admin: 03/19/21 08:43 Dose: 6.25 mg Documented by: VENESSA Dexamethasone Sodium Phosphate (Dexamethasone Sod Phosphate 4 Mg/Ml Vial) 6 mg IVPUSH DAILY [facility] Last Admin: 03/19/21 08:45 Dose: 6 mg Documented by: VENESSA Dicyclomine HCl (Dicyclomine Hcl 10 Mg Capsule) 10 mg PO QID PRN PRN Reason: diarrhea Last Admin: 03/16/21 22:32 Dose: 10 mg Documented by: CHASE Guaifenesin (Guaifenesin 200 Mg/10 Ml 10 Ml Liquid) 10 ml PO Q6H PRN PRN Reason: Cough Last Admin: 03/19/21 05:03 Dose: 10 ml Documented by: MAIRA Heparin Sodium (Porcine) (Heparin Sodium,Porcine 5,000 Unit/Ml Vial) 5,000 unit SUBCUT Q12H [facility] Last Admin: 03/19/21 05:11 Dose: 5,000 unit Documented by: MAIRA Hydroxyzine HCl (Hydroxyzine Hcl 25 Mg Tablet) 25 mg PO Q6H PRN PRN Reason: anxiety/restlessness Ceftriaxone Sodium 1 gm/ (Sodium Chloride) 50 mls @ 100 mls/hr IV Q24H [facility] Last Infusion: 03/19/21 09:43 Dose: 0 mls/hr Documented by: VENESSA Remdesivir 100 mg/ Sodium (Chloride) 230 mls @ 115 mls/hr IV Q24H [facility] Stop: 03/19/21 18:59 Last Infusion: 03/18/21 20:39 Dose: 0 mls/hr Documented by: MAIRA Levothyroxine Sodium (Levothyroxine Sodium 50 Mcg Tablet) 50 mcg PO DAILY@0600 [facility] Last Admin: 03/19/21 05:03 Dose: 50 mcg Documented by: MAIRA Magnesium Oxide (Magnesium Oxide 400 Mg Tablet) 400 mg PO DAILY [facility] Last Admin: 03/19/21 08:45 Dose: 400 mg Documented by: VENESSA Montelukast Sodium (Montelukast Sodium 10 Mg Tablet) 10 mg PO BEDTIME [facility] Last Admin: 03/18/21 20:21 Dose: 10 mg Documented by: MAIRA Morphine Sulfate (Morphine Sulfate 2 Mg/Ml Cartridge) 1 mg IVPUSH Q4H PRN; Protocol PRN Reason: Breakthrough Pain Omeprazole (Omeprazole 40 Mg Capsule.) 40 mg PO DAILY@0630 [facility] Last Admin: 03/19/21 05:03 Dose: 40 mg Documented by: MAIRA Ondansetron HCl (Ondansetron Hcl 4 Mg/2 Ml Vial) 4 mg IVPUSH Q8H PRN PRN Reason: Nausea and Vomiting Pharmacy Consult (Consult Rx Perform Med Rec) 1 each MISCELLANE ONCE PRN PRN Reason: Consult order Pregabalin (Pregabalin 75 Mg Capsule) 225 mg PO BID [facility] Last Admin: 03/19/21 08:39 Dose: 225 mg Documented by: VENESSA Sodium Chloride (0.9 % Sodium Chloride Flush 3 Ml Syringe) 3 ml IVFLUSH QSHIFT [facility] Last Admin: 03/19/21 08:46 Dose: 3 ml Documented by: VENESSA Labs CBC & Chem 7: 03/19/21 06:11 03/19/21 06:11 Labs: Laboratory Results - last 24 hr 03/19/21 03/19/21 06:11 06:11 MCV 81.7 MCH 26.9 L MCHC 32.9 RDW 15.5 Plt Count 176 MPV 11.0 Absolute Nucleated RBC 0.000 Nucleated RBC % (auto) 0.0 Anion Gap 14 Estim Creat Clear Calc 80.1 Estimated GFR 59 Fasting Glucose 143 H Calcium 7.7 L Assessment and Plan (1) COVID-19: Status: Acute (2) Positive blood culture: Status: Acute (3) DAVID (acute kidney injury): Status: Acute (4) UTI (urinary tract infection): Status: Acute (5) Acute respiratory failure with hypoxia: Status: Acute Assessment and Plan: A 70 years old lady with PMH of asthma, HTN, I LD, COPD, MISSY who presented to the hospital with increased weakness and decreased oral intake. She was called by the emergency for positive blood culture. Acute on chronic hypoxia respiratory failure (normally on 3L home o2) 2/2 COVID-19 pneumonia continue dexamethasone remdesivir day 4/5 coag negative staph on blood culture contaminant Acute kidney injury resolved hypernatremia resolved, now off d5w and maintaining sodium UTI ecoli continue ceftriaxone day 5 DVT PPX Heparin Quality Stroke Does the patient have a stroke diagnosis?: No VTE Prior VTE?: No VTE Risk Level:: Medical - moderate - high VTE Device Contraindication: Treatment Not Indicated VTE Drug Contraindication: N/A - Med Ordered
[2021-03-19] MEDS: Remdesivir 100 MG in 0.9 % Sodium Chloride 230 ML 115 MG IV (17:39)
[2021-03-19] MEDS: Atorvastatin Calcium 10 MG TABLET PO (20:31)
[2021-03-19] MEDS: Montelukast Sodium 10 MG TABLET PO (20:31)
[2021-03-19] MEDS: Acetaminophen 325 MG TABLET 650 MG PO (20:43)
[2021-03-20] VITALS (8 sets, daily range): BP systolic 136–173; BP diastolic 63–78; PULSE 55–75; RESP 18–20; TEMP 36.1–36.7; O2SAT 88–96
[2021-03-20] MEDS: Levothyroxine Sodium 50 MCG TABLET PO (06:29)
[2021-03-20] MEDS: Heparin Sodium,Porcine 5,000 UNIT/ML VIAL 5000 UNIT SUBCUT ×2 (06:29→18:02)
[2021-03-20] MEDS: Magnesium Oxide 400 MG TABLET PO (09:01)
[2021-03-20] MEDS: Pregabalin 75 MG CAPSULE 225 MG PO ×2 (09:03→20:31)
[2021-03-20] MEDS: dexAMETHasone sod phosphate 4 MG/ML VIAL 6 MG IVPUSH (09:05)
[2021-03-20] MEDS: cefTRIAXone sodium 1 GM in 0.9 % Sodium Chloride 50 ML IV (09:07)
[2021-03-20] MEDS: 0.9 % Sodium Chloride Flush 3 ML SYRINGE IVFLUSH ×3 (09:12→20:32)
--- NOTE | 2021-03-20 10:12 | P.PNIM_ITS ---
Subjective Subjective Date of Service: 03/20/21 Interval History: ?sob interval history: close to baseline, improved appetite Cardiovascular Cardiovascular: Reports no additional cardiovascular complaints Respiratory Respiratory: Reports no additional respiratory complaints Physical Exam Vital Signs: Vital Signs: Last Vital Signs Temp 97.5 F 03/20/21 08:00 Pulse 59 03/20/21 09:19 Resp 19 03/20/21 08:00 BP 162/72 H 03/20/21 09:19 Pulse Ox 90 L 03/20/21 08:00 Oxygen Flow Rate 3 03/14/21 10:37 BMI result Body Mass Index 49.9 Const Other:?Constitutional : Alert,, looks lethargic and tired, on oxygen supplement Neck : Normal inspection, Supple Cardiovascular : RRR, S1 S2, no lower extremity edema Respiratory :? Decrease bilateral air entry,? no crackles, wheezes or rhonchi, in mild respiratory distress Gastrointestinal:? soft, lax, Normal bowel sounds, Non tender Skin : Warm, Dry Neurological : Alert & oriented x3, No focal deficit Objective Data Active Medications Acetaminophen (Acetaminophen 325 Mg Tablet) 650 mg PO Q6H PRN PRN Reason: Pain, Mild (Pain Scale 1-3) Last Admin: 03/19/21 20:43 Dose: 650 mg Documented by: BONI Albuterol Sulfate (Albuterol Sulfate 90 Mcg 8 Gm Inhaler) 4 puff INHALE Q2H PRN PRN Reason: Shortness of Breath/Wheezing Atorvastatin Calcium (Atorvastatin Calcium 10 Mg Tablet) 10 mg PO BEDTIME [facility] Last Admin: 03/19/21 20:31 Dose: 10 mg Documented by: BOIN Carvedilol (Carvedilol 6.25 Mg Tablet) 6.25 mg PO BID [facility]; Protocol Last Admin: 03/20/21 09:19 Dose: Not Given Documented by: VENESSA Non-Admin Reason: Decreased Heart Rate Dexamethasone Sodium Phosphate (Dexamethasone Sod Phosphate 4 Mg/Ml Vial) 6 mg IVPUSH DAILY [facility] Last Admin: 03/20/21 09:05 Dose: 6 mg Documented by: VENESSA Dicyclomine HCl (Dicyclomine Hcl 10 Mg Capsule) 10 mg PO QID PRN PRN Reason: diarrhea Last Admin: 03/16/21 22:32 Dose: 10 mg Documented by: CHASE Guaifenesin (Guaifenesin 200 Mg/10 Ml 10 Ml Liquid) 10 ml PO Q6H PRN PRN Reason: Cough Last Admin: 03/19/21 20:50 Dose: 10 ml Documented by: BONI Heparin Sodium (Porcine) (Heparin Sodium,Porcine 5,000 Unit/Ml Vial) 5,000 unit SUBCUT Q12H [facility] Last Admin: 03/20/21 06:29 Dose: 5,000 unit Documented by: BONI Hydroxyzine HCl (Hydroxyzine Hcl 25 Mg Tablet) 25 mg PO Q6H PRN PRN Reason: anxiety/restlessness Ceftriaxone Sodium 1 gm/ (Sodium Chloride) 50 mls @ 100 mls/hr IV Q24H [facility] Last Infusion: 03/20/21 09:51 Dose: 0 mls/hr Documented by: VENESSA Levothyroxine Sodium (Levothyroxine Sodium 50 Mcg Tablet) 50 mcg PO DAILY@0600 [facility] Last Admin: 03/20/21 06:29 Dose: 50 mcg Documented by: BONI Magnesium Oxide (Magnesium Oxide 400 Mg Tablet) 400 mg PO DAILY [facility] Last Admin: 03/20/21 09:01 Dose: 400 mg Documented by: VENESSA Montelukast Sodium (Montelukast Sodium 10 Mg Tablet) 10 mg PO BEDTIME [facility] Last Admin: 03/19/21 20:31 Dose: 10 mg Documented by: BONI Morphine Sulfate (Morphine Sulfate 2 Mg/Ml Cartridge) 1 mg IVPUSH Q4H PRN; Protocol PRN Reason: Breakthrough Pain Omeprazole (Omeprazole 40 Mg [place].) 40 mg PO DAILY@0630 [facility] Last Admin: 03/20/21 06:34 Dose: Not Given Documented by: BONI Non-Admin Reason: unable to crush Ondansetron HCl (Ondansetron Hcl 4 Mg/2 Ml Vial) 4 mg IVPUSH Q8H PRN PRN Reason: Nausea and Vomiting Pharmacy Consult (Consult Rx Perform Med Rec) 1 each MISCELLANE ONCE PRN PRN Reason: Consult order Pregabalin (Pregabalin 75 Mg Capsule) 225 mg PO BID [facility] Last Admin: 03/20/21 09:03 Dose: 225 mg Documented by: VENESSA Sodium Chloride (0.9 % Sodium Chloride Flush 3 Ml Syringe) 3 ml IVFLUSH QSHIFT [facility] Last Admin: 03/20/21 09:12 Dose: 3 ml Documented by: VENESSA Labs CBC & Chem 7: 03/19/21 06:11 03/19/21 06:11 Microbiology Microbiology Results: Microbiology 03/14/21 11:13 Blood Culture - Final Blood - Venous No growth after 5 days. 03/14/21 11:07 Blood Culture - Final Blood - Venous No growth after 5 days. Assessment and Plan (1) COVID-19: Status: Acute (2) Positive blood culture: Status: Acute (3) DAVID (acute kidney injury): Status: Acute (4) UTI (urinary tract infection): Status: Acute (5) Acute respiratory failure with hypoxia: Status: Acute Assessment and Plan: A 70 years old lady with PMH of asthma, HTN, I LD, COPD, MISSY who presented to the hospital with increased weakness and decreased oral intake. She was called by the emergency for positive blood culture. Acute on chronic hypoxia respiratory failure (normally on 3L home o2) 2/2 COVID-19 pneumonia continue dexamethasone remdesivir day / coag negative staph on blood culture contaminant Acute kidney injury resolved hypernatremia resolved, now off d5w and maintaining sodium UTI ecoli continue ceftriaxone day 6 DVT PPX Heparin Quality Stroke Does the patient have a stroke diagnosis?: No VTE Prior VTE?: No VTE Risk Level:: Medical - moderate - high VTE Device Contraindication: Treatment Not Indicated VTE Drug Contraindication: N/A - Med Ordered
[2021-03-20] MEDS: Montelukast Sodium 10 MG TABLET PO (20:31)
[2021-03-20] MEDS: Atorvastatin Calcium 10 MG TABLET PO (20:31)
[2021-03-20] MEDS: carvediloL 6.25 MG TABLET PO (20:31)
[2021-03-21] VITALS (8 sets, daily range): BP systolic 122–166; BP diastolic 60–75; PULSE 66–74; RESP 18–20; TEMP 36.3–37.3; O2SAT 91–96
[2021-03-21] MEDS: guaiFENesin 200 MG/10 ML 10 ML LIQUID PO (01:37)
[2021-03-21] MEDS: ondansetron HCL 4 MG/2 ML VIAL IVPUSH (03:38)
[2021-03-21 06:39] LABS: Anion Gap 14 (12-20); Blood Urea Nitrogen 28 mg/dL (9-16); C Reactive Protein 9.99 mg/dL (< or = 0.50); Carbon Dioxide 24 mmol/L (22-29); Chloride 108 mmol/L (96-108); Creatinine Clr Calc Pharmacy 88.6; Estimated Glomerular Filt Rate > 60; Glucose Fasting 112 mg/dL (60-99); Lactate Dehydrogenase 875 U/L (122-220); Potassium 3.8 mmol/L (3.3-5.1); Sodium 142 mmol/L (135-145)
[2021-03-21] MEDS: Omeprazole 40 MG CAPSULE.DR PO (07:23)
[2021-03-21] MEDS: Heparin Sodium,Porcine 5,000 UNIT/ML VIAL 5000 UNIT SUBCUT ×2 (07:23→16:45)
[2021-03-21] MEDS: Levothyroxine Sodium 50 MCG TABLET PO (07:23)
[2021-03-21] MEDS: dexAMETHasone sod phosphate 4 MG/ML VIAL 6 MG IVPUSH (08:32)
[2021-03-21] MEDS: cefTRIAXone sodium 1 GM in 0.9 % Sodium Chloride 50 ML IV (08:34)
[2021-03-21] MEDS: Pregabalin 75 MG CAPSULE 225 MG PO ×2 (08:34→20:14)
[2021-03-21] MEDS: 0.9 % Sodium Chloride Flush 3 ML SYRINGE IVFLUSH ×2 (08:34→16:45)
[2021-03-21] MEDS: Magnesium Oxide 400 MG TABLET PO (08:35)
[2021-03-21] MEDS: carvediloL 6.25 MG TABLET PO ×2 (08:35→20:14)
--- NOTE | 2021-03-21 09:39 | P.PNIM_ITS ---
Subjective Subjective Date of Service: 03/21/21 Interval History: cc: sob interval history: was doing well last few days, today more sob and anxious Cardiovascular Cardiovascular: Reports no additional cardiovascular complaints Genitourinary Genitourinary: Reports no additional female genitourinary complaints Physical Exam Vital Signs: Vital Signs: Last Vital Signs Temp 97.6 F 03/21/21 07:36 Pulse 66 03/21/21 08:35 Resp 19 03/21/21 07:36 BP 125/75 03/21/21 08:35 Pulse Ox 91 L 03/21/21 07:36 Oxygen Flow Rate 3 03/14/21 10:37 BMI result Body Mass Index 49.9 General: AO X 3, in some acute distress Resp: diminished bilateral, accessory muscles used CVS: S1,S2,RRR GI: soft, non tender, non distended Neuro: motor grossly intact, alert Psych: flat affect, appropriate insight Objective Data Active Medications Acetaminophen (Acetaminophen 325 Mg Tablet) 650 mg PO Q6H PRN PRN Reason: Pain, Mild (Pain Scale 1-3) Last Admin: 03/19/21 20:43 Dose: 650 mg Documented by: BONI Albuterol Sulfate (Albuterol Sulfate 90 Mcg 8 Gm Inhaler) 4 puff INHALE Q2H PRN PRN Reason: Shortness of Breath/Wheezing Atorvastatin Calcium (Atorvastatin Calcium 10 Mg Tablet) 10 mg PO BEDTIME [facility] Last Admin: 03/20/21 20:31 Dose: 10 mg Documented by: SIERRA Carvedilol (Carvedilol 6.25 Mg Tablet) 6.25 mg PO BID [facility]; Protocol Last Admin: 03/21/21 08:35 Dose: 6.25 mg Documented by: BAILEY Dexamethasone Sodium Phosphate (Dexamethasone Sod Phosphate 4 Mg/Ml Vial) 6 mg IVPUSH DAILY [facility] Last Admin: 03/21/21 08:32 Dose: 6 mg Documented by: BAILEY Dicyclomine HCl (Dicyclomine Hcl 10 Mg Capsule) 10 mg PO QID PRN PRN Reason: diarrhea Last Admin: 03/16/21 22:32 Dose: 10 mg Documented by: CHASE Guaifenesin (Guaifenesin 200 Mg/10 Ml 10 Ml Liquid) 10 ml PO Q6H PRN PRN Reason: Cough Last Admin: 03/21/21 01:37 Dose: 10 ml Documented by: SIERRA Heparin Sodium (Porcine) (Heparin Sodium,Porcine 5,000 Unit/Ml Vial) 5,000 unit SUBCUT Q12H [facility] Last Admin: 03/21/21 07:23 Dose: 5,000 unit Documented by: SIERRA Hydroxyzine HCl (Hydroxyzine Hcl 25 Mg Tablet) 25 mg PO Q6H PRN PRN Reason: anxiety/restlessness Ceftriaxone Sodium 1 gm/ (Sodium Chloride) 50 mls @ 100 mls/hr IV Q24H [facility] Last Admin: 03/21/21 08:34 Dose: 100 mls/hr Documented by: BAILEY Levothyroxine Sodium (Levothyroxine Sodium 50 Mcg Tablet) 50 mcg PO DAILY@0600 [facility] Last Admin: 03/21/21 07:23 Dose: 50 mcg Documented by: SIERRA Magnesium Oxide (Magnesium Oxide 400 Mg Tablet) 400 mg PO DAILY [facility] Last Admin: 03/21/21 08:35 Dose: 400 mg Documented by: BAILEY Montelukast Sodium (Montelukast Sodium 10 Mg Tablet) 10 mg PO BEDTIME [facility] Last Admin: 03/20/21 20:31 Dose: 10 mg Documented by: SIERRA Morphine Sulfate (Morphine Sulfate 2 Mg/Ml Cartridge) 1 mg IVPUSH Q4H PRN; Protocol PRN Reason: Breakthrough Pain Omeprazole (Omeprazole 40 Mg Capsule.) 40 mg PO DAILY@0630 [facility] Last Admin: 03/21/21 07:23 Dose: 40 mg Documented by: SIERRA Ondansetron HCl (Ondansetron Hcl 4 Mg/2 Ml Vial) 4 mg IVPUSH Q8H PRN PRN Reason: Nausea and Vomiting Last Admin: 03/21/21 03:38 Dose: 4 mg Documented by: SIERRA Pharmacy Consult (Consult Rx Perform Med Rec) 1 each MISCELLANE ONCE PRN PRN Reason: Consult order Pregabalin (Pregabalin 75 Mg Capsule) 225 mg PO BID [facility] Last Admin: 03/21/21 08:34 Dose: 225 mg Documented by: BAILEY Sodium Chloride (0.9 % Sodium Chloride Flush 3 Ml Syringe) 3 ml IVFLUSH QSHIFT [facility] Last Admin: 03/21/21 08:34 Dose: 3 ml Documented by: BAILEY Labs CBC & Chem 7: 03/19/21 06:11 03/21/21 05:44 Labs: Laboratory Results - last 24 hr 03/21/21 05:44 Anion Gap 14 Estim Creat Clear Calc 88.6 Estimated GFR > 60 Fasting Glucose 112 H Calcium 8.0 L Lactate Dehydrogenase 875 H C-Reactive Protein 9.99 H Assessment and Plan (1) COVID-19: Status: Acute (2) Positive blood culture: Status: Acute (3) DAVID (acute kidney injury): Status: Acute (4) UTI (urinary tract infection): Status: Acute (5) Acute respiratory failure with hypoxia: Status: Acute Assessment and Plan: A 70 years old lady with PMH of asthma, HTN, I LD, COPD, MISSY who presented to the hospital with increased weakness and decreased oral intake. She was called by the emergency for positive blood culture. Acute on chronic hypoxia respiratory failure (normally on 3L home o2) 2/2 COVID-19 pneumonia overall was improving, but today feeling worse, o2 requirements increasing continue dexamethasone day 7 completed remdesivir 03/20/21 coag negative staph on blood culture contaminant Acute kidney injury resolved hypernatremia resolved UTI ecoli continue ceftriaxone day 7 DVT PPX Heparin Quality Stroke Does the patient have a stroke diagnosis?: No VTE Prior VTE?: No VTE Risk Level:: Medical - moderate - high VTE Device Contraindication: Treatment Not Indicated VTE Drug Contraindication: N/A - Med Ordered
--- NOTE | 2021-03-21 11:29 | MHC.CM.PN ---
Per ROUNDS discussion, Patient is not yet medically cleared for dc (IV Ceftriaxone, IV Decadron, IV Zofran, High Flow O2). Home with [facility] vs STR pending PT eval is the goal; CM will follow.
--- NOTE | 2021-03-21 19:10 | PC.NURSE ---
Skin assessment completed. Patient has redness to coccyx with slight peeling of skin. Triad applied left open to air.
[2021-03-21] MEDS: Montelukast Sodium 10 MG TABLET PO (20:15)
[2021-03-21] MEDS: Atorvastatin Calcium 10 MG TABLET PO (20:15)
[2021-03-22] VITALS (7 sets, daily range): BP systolic 132–164; BP diastolic 63–73; PULSE 59–65; RESP 18–21; TEMP 36–37.1; O2SAT 93–97
[2021-03-22] MEDS: 0.9 % Sodium Chloride Flush 3 ML SYRINGE IVFLUSH ×4 (00:42→23:18)
[2021-03-22] MEDS: Levothyroxine Sodium 50 MCG TABLET PO (06:16)
[2021-03-22] MEDS: Omeprazole 40 MG CAPSULE.DR PO (06:16)
[2021-03-22] MEDS: Heparin Sodium,Porcine 5,000 UNIT/ML VIAL 5000 UNIT SUBCUT ×2 (06:16→16:22)
[2021-03-22] MEDS: Pregabalin 75 MG CAPSULE 225 MG PO ×2 (08:21→20:28)
[2021-03-22] MEDS: dexAMETHasone sod phosphate 4 MG/ML VIAL 6 MG IVPUSH (08:22)
[2021-03-22] MEDS: carvediloL 6.25 MG TABLET PO ×2 (08:23→20:28)
[2021-03-22] MEDS: Magnesium Oxide 400 MG TABLET PO (08:24)
--- NOTE | 2021-03-22 10:07 | HO.PM.IMPN ---
Subjective Subjective Date of Service: 03/22/21 Interval History: ?cc: sob interval history: was doing well over weekend, yesterday started to be more sob and o2 requirements went up, a bit better today, but not as good as over the weekend Cardiovascular Cardiovascular: Reports no additional cardiovascular complaints Gastrointestinal Gastrointestinal: Reports no additional gastrointestinal complaints Physical Exam Vital Signs: Vital Signs: Last Vital Signs Temp 98.0 F 03/22/21 07:59 Pulse 59 03/22/21 08:23 Resp 20 03/22/21 07:59 BP 147/73 H 03/22/21 08:23 Pulse Ox 96 03/22/21 07:59 Oxygen Flow Rate 3 03/14/21 10:37 BMI result Body Mass Index 49.9 General: AO X 3, in some acute distress Resp:? diminished bilateral,? accessory muscles used CVS: S1,S2,RRR GI: soft, non tender, non distended Neuro:? motor grossly intact, alert Psych: flat affect, appropriate insight? Objective Data Active Medications Acetaminophen (Acetaminophen 325 Mg Tablet) 650 mg PO Q6H PRN PRN Reason: Pain, Mild (Pain Scale 1-3) Last Admin: 03/19/21 20:43 Dose: 650 mg Documented by: BONI Albuterol Sulfate (Albuterol Sulfate 90 Mcg 8 Gm Inhaler) 4 puff INHALE Q2H PRN PRN Reason: Shortness of Breath/Wheezing Atorvastatin Calcium (Atorvastatin Calcium 10 Mg Tablet) 10 mg PO BEDTIME [facility] Last Admin: 03/21/21 20:15 Dose: 10 mg Documented by: SIERRA Carvedilol (Carvedilol 6.25 Mg Tablet) 6.25 mg PO BID [facility]; Protocol Last Admin: 03/22/21 08:23 Dose: 6.25 mg Documented by: BAILEY Dexamethasone Sodium Phosphate (Dexamethasone Sod Phosphate 4 Mg/Ml Vial) 6 mg IVPUSH DAILY [facility] Last Admin: 03/22/21 08:22 Dose: 6 mg Documented by: BAILEY Dicyclomine HCl (Dicyclomine Hcl 10 Mg Capsule) 10 mg PO QID PRN PRN Reason: diarrhea Last Admin: 03/16/21 22:32 Dose: 10 mg Documented by: CHASE Guaifenesin (Guaifenesin 200 Mg/10 Ml 10 Ml Liquid) 10 ml PO Q6H PRN PRN Reason: Cough Last Admin: 03/21/21 01:37 Dose: 10 ml Documented by: SIERRA Heparin Sodium (Porcine) (Heparin Sodium,Porcine 5,000 Unit/Ml Vial) 5,000 unit SUBCUT Q12H [facility] Last Admin: 03/22/21 06:16 Dose: 5,000 unit Documented by: CHASE Hydroxyzine HCl (Hydroxyzine Hcl 25 Mg Tablet) 25 mg PO Q6H PRN PRN Reason: anxiety/restlessness Levothyroxine Sodium (Levothyroxine Sodium 50 Mcg Tablet) 50 mcg PO DAILY@0600 [facility] Last Admin: 03/22/21 06:16 Dose: 50 mcg Documented by: CHASE Magnesium Oxide (Magnesium Oxide 400 Mg Tablet) 400 mg PO DAILY [facility] Last Admin: 03/22/21 08:24 Dose: 400 mg Documented by: BAILEY Montelukast Sodium (Montelukast Sodium 10 Mg Tablet) 10 mg PO BEDTIME [facility] Last Admin: 03/21/21 20:15 Dose: 10 mg Documented by: SIERRA Morphine Sulfate (Morphine Sulfate 2 Mg/Ml Cartridge) 1 mg IVPUSH Q4H PRN; Protocol PRN Reason: Breakthrough Pain Omeprazole (Omeprazole 40 Mg Capsule.) 40 mg PO DAILY@0630 [facility] Last Admin: 03/22/21 06:16 Dose: 40 mg Documented by: CHASE Ondansetron HCl (Ondansetron Hcl 4 Mg/2 Ml Vial) 4 mg IVPUSH Q8H PRN PRN Reason: Nausea and Vomiting Last Admin: 03/21/21 03:38 Dose: 4 mg Documented by: SIERRA Pharmacy Consult (Consult Rx Perform Med Rec) 1 each MISCELLANE ONCE PRN PRN Reason: Consult order Pregabalin (Pregabalin 75 Mg Capsule) 225 mg PO BID [facility] Last Admin: 03/22/21 08:21 Dose: 225 mg Documented by: BAILEY Sodium Chloride (0.9 % Sodium Chloride Flush 3 Ml Syringe) 3 ml IVFLUSH QSHIFT [facility] Last Admin: 03/22/21 08:21 Dose: 3 ml Documented by: BAILEY Labs CBC & Chem 7: 03/19/21 06:11 03/21/21 05:44 Assessment and Plan (1) COVID-19: Status: Acute (2) Positive blood culture: Status: Acute (3) DAVID (acute kidney injury): Status: Acute (4) UTI (urinary tract infection): Status: Acute (5) Acute respiratory failure with hypoxia: Status: Acute Assessment and Plan: A 70 years old lady with PMH of asthma, HTN, I LD, COPD, MISSY who presented to the hospital with increased weakness and decreased oral intake. She was called by the emergency for positive blood culture. Acute on chronic hypoxia respiratory failure (normally on 3L home o2) 2/ COVID-19 pneumonia overall was improving, but worsened over last couple of days, o2 requirements increasing, wean as tolerated, monitor inflammatory markers continue dexamethasone day 8 completed remdesivir 03/20/21 coag negative staph on blood culture contaminant Acute kidney injury resolved hypernatremia resolved UTI ecoli completed 7 days ceftriaxone 03/21/21 DVT PPX Heparin Quality Stroke Does the patient have a stroke diagnosis?: No VTE Prior VTE?: No VTE Risk Level:: Medical - moderate - high VTE Device Contraindication: Treatment Not Indicated VTE Drug Contraindication: N/A - Med Ordered
[2021-03-22] MEDS: Atorvastatin Calcium 10 MG TABLET PO (20:28)
[2021-03-22] MEDS: Montelukast Sodium 10 MG TABLET PO (20:28)
[2021-03-23] VITALS (8 sets, daily range): BP systolic 121–151; BP diastolic 56–71; PULSE 63–67; RESP 18–20; TEMP 36.1–37.1; O2SAT 91–97
[2021-03-23] MEDS: Levothyroxine Sodium 50 MCG TABLET PO (05:44)
[2021-03-23] MEDS: Heparin Sodium,Porcine 5,000 UNIT/ML VIAL 5000 UNIT SUBCUT ×2 (05:44→17:33)
[2021-03-23] MEDS: Omeprazole 40 MG CAPSULE.DR PO (05:44)
[2021-03-23 07:39] LABS: Hematocrit 32.7 % (37.0-47.0); Hemoglobin 10.6 g/dl (12.0-16.0); Mean Corpuscular HGB Conc 32.4 g/dl (31.0-35.0); Mean Corpuscular Hemoglobin 26.6 pg (27.0-33.0); Mean Corpuscular Volume 82.2 fL (80.0-98.0); Mean Platelet Volume 11.2 fL (9.4-12.3); Platelet Count 326 X10*3/uL (160-400); Red Blood Count 3.98 X10*6/uL (4.20-5.50); Red Cell Distribution Width 15.9 % (11.0-16.0); White Blood Count 14.7 X10*3/uL (4.8-10.8)
[2021-03-23 07:46] LABS: D Dimer High Sensitivity 467 NG/ML
[2021-03-23 07:56] LABS: Alanine Aminotransferase 14 U/L (0-31); Albumin Level 2.8 g/dL (3.5-5.0); Alkaline Phosphatase 63 U/L (39-117); Anion Gap 13 (12-20); Aspartate Amino Transferase 16 U/L (5-31); Bilirubin Direct 0.6 mg/dL (0.0-0.5); Bilirubin Total 1.1 mg/dL (0.0-1.0); Blood Urea Nitrogen 28 mg/dL (9-16); C Reactive Protein 11.32 mg/dL (< or = 0.50); Calcium 8.2 mg/dL (8.4-10.2); Carbon Dioxide 27 mmol/L (22-29); Chloride 105 mmol/L (96-108); Creatinine Clr Calc Pharmacy 88.6; Estimated Glomerular Filt Rate > 60; Glucose Fasting 130 mg/dL (60-99); Lactate Dehydrogenase 707 U/L (122-220); Magnesium 2.5 mg/dL (1.6-2.6); Sodium 141 mmol/L (135-145); Total Protein 5.7 g/dL (6.5-8.0)
--- NOTE | 2021-03-23 08:59 | P.CDIC_ITS ---
CDI Concurrent Query Documentation Clarification: PHYSICIAN'S DOCUMENTATION REQUEST Date of Query: 03/23/21 0900 Patient Name: Jocelynn Fernando Admit Date: 03/14/21 Dear Doctor, A review of the medical record indicates additional documentation may be indicated. Please review below and update the documentation accordingly. Clinical Indicators: Risk Factors/Clinical Indicators/Treatments Wound care assessment - 03/20 - reddness to buttocks. Wound care assessment - 03/21 - Pressure injury to coccyx Stage 1 - open to air. Wound care assessment - 03/22 - Pressure injury to coccyx Stage 2 Triad applied Based on the above, could you please provide, in the Progress Notes, further information regarding the ulcer/wound: POA, clarity and consistency of documentation within the medical record: * Location of the ulcer/wound, including laterality * Type (etiology) of ulcer/wound: * Venous stasis ulcer * Arterial (ischemic) ulcer * Pressure (decubitus) ulcer * Other * Unable to determine * If a pressure ulcer, please also include the stage* of the ulcer: * Stage 1 - Skin intact, non-blanchable redness * Stage 2 - Partial thickness loss of dermis, includes intact or open blister * Stage 3 - Full thickness tissue not including bone, tendon, or muscle * Stage 4 - Full thickness tissue loss, including exposed bones, tendon, or muscle * Unstageable or other * Unable to determine *Source: National Pressure Ulcer Advisory Panel (NPUAP) Use of terms such as suspected, likely, concern for, or probable (associated with a specific diagnosis that is being evaluated, monitored, or treated as if it exists) are acceptable and can be coded in the inpatient setting, when documented at the time of discharge. Thank you, Tala Guaman [facility], CDIS Extension:[phone] Please use your independent medical judgment in providing your response. THIS QUERY IS PART OF THE PERMANENT MEDICAL RECORD Provider Response: Other Other Diagnosis: Stage 2 coccyx pressure wound
[2021-03-23] MEDS: 0.9 % Sodium Chloride Flush 3 ML SYRINGE IVFLUSH ×3 (09:23→20:24)
[2021-03-23] MEDS: carvediloL 6.25 MG TABLET PO ×2 (09:26→20:24)
[2021-03-23] MEDS: dexAMETHasone sod phosphate 4 MG/ML VIAL 6 MG IVPUSH (09:26)
[2021-03-23] MEDS: Pregabalin 75 MG CAPSULE 225 MG PO ×2 (09:27→20:23)
[2021-03-23] MEDS: Magnesium Oxide 400 MG TABLET PO (09:33)
--- NOTE | 2021-03-23 11:59 | HO.PM.IMPN ---
Subjective Subjective Date of Service: 03/23/21 Interval History: the patient was seen and evaluated this morning Laying in bed, feels mild improvement Still requiring 11 L of oxygen Reports difficulty breathing, did not walk since coming to the hospital No reported other overnight events. Systemic review: Denies any fever, chills and generalized weakness No chest pain, palpitation Still having shortness of breath, on oxygen supplement No abdominal pain, nausea or vomiting No urinary symptoms No any rash or wounds Physical Exam Vital Signs: Vital Signs: Last Vital Signs Temp 98.6 F 03/23/21 10:54 Pulse 66 03/23/21 10:54 Resp 20 03/23/21 10:54 BP 121/56 L 03/23/21 10:54 Pulse Ox 93 03/23/21 10:54 Oxygen Flow Rate 3 03/14/21 10:37 BMI result Body Mass Index 49.9 Const: Other: Constitutional : Alert, more comfortable, mildly distressed, on oxygen supplement Neck : Normal inspection, Supple Cardiovascular : RRR, S1 S2, no lower extremity edema Respiratory : Decrease bilateral air entry, no crackles, wheezes or rhonchi, in mild respiratory distress, on oxygen supplement Gastrointestinal: soft, lax, Normal bowel sounds, Non tender Skin : Warm, Dry Neurological : Alert & oriented x3, No focal deficit Objective Data Active Medications Acetaminophen (Acetaminophen 325 Mg Tablet) 650 mg PO Q6H PRN PRN Reason: Pain, Mild (Pain Scale 1-3) Last Admin: 03/19/21 20:43 Dose: 650 mg Documented by: BONI Albuterol Sulfate (Albuterol Sulfate 90 Mcg 8 Gm Inhaler) 4 puff INHALE Q2H PRN PRN Reason: Shortness of Breath/Wheezing Atorvastatin Calcium (Atorvastatin Calcium 10 Mg Tablet) 10 mg PO BEDTIME [facility] Last Admin: 03/22/21 20:28 Dose: 10 mg Documented by: TIBURCIO Carvedilol (Carvedilol 6.25 Mg Tablet) 6.25 mg PO BID [facility]; Protocol Last Admin: 03/23/21 09:26 Dose: 6.25 mg Documented by: ASYA Dexamethasone Sodium Phosphate (Dexamethasone Sod Phosphate 4 Mg/Ml Vial) 6 mg IVPUSH DAILY [facility] Last Admin: 03/23/21 09:26 Dose: 6 mg Documented by: ASYA Dicyclomine HCl (Dicyclomine Hcl 10 Mg Capsule) 10 mg PO QID PRN PRN Reason: diarrhea Last Admin: 03/16/21 22:32 Dose: 10 mg Documented by: CHASE Guaifenesin (Guaifenesin 200 Mg/10 Ml 10 Ml Liquid) 10 ml PO Q6H PRN PRN Reason: Cough Last Admin: 03/21/21 01:37 Dose: 10 ml Documented by: SIERRA Heparin Sodium (Porcine) (Heparin Sodium,Porcine 5,000 Unit/Ml Vial) 5,000 unit SUBCUT Q12H [facility] Last Admin: 03/23/21 05:44 Dose: 5,000 unit Documented by: YENNY Hydroxyzine HCl (Hydroxyzine Hcl 25 Mg Tablet) 25 mg PO Q6H PRN PRN Reason: anxiety/restlessness Levothyroxine Sodium (Levothyroxine Sodium 50 Mcg Tablet) 50 mcg PO DAILY@0600 [facility] Last Admin: 03/23/21 05:44 Dose: 50 mcg Documented by: YENNY Magnesium Oxide (Magnesium Oxide 400 Mg Tablet) 400 mg PO DAILY [facility] Last Admin: 03/23/21 09:33 Dose: 400 mg Documented by: ASYA Montelukast Sodium (Montelukast Sodium 10 Mg Tablet) 10 mg PO BEDTIME [facility] Last Admin: 03/22/21 20:28 Dose: 10 mg Documented by: TIBURCIO Morphine Sulfate (Morphine Sulfate 2 Mg/Ml Cartridge) 1 mg IVPUSH Q4H PRN; Protocol PRN Reason: Breakthrough Pain Omeprazole (Omeprazole 40 Mg Aldair.) 40 mg PO DAILY@0630 [facility] Last Admin: 03/23/21 05:44 Dose: 40 mg Documented by: YENNY Ondansetron HCl (Ondansetron Hcl 4 Mg/2 Ml Vial) 4 mg IVPUSH Q8H PRN PRN Reason: Nausea and Vomiting Last Admin: 03/21/21 03:38 Dose: 4 mg Documented by: SIERRA Pharmacy Consult (Consult Rx Perform Med Rec) 1 each MISCELLANE ONCE PRN PRN Reason: Consult order Pregabalin (Pregabalin 75 Mg Capsule) 225 mg PO BID [facility] Last Admin: 03/23/21 09:27 Dose: 225 mg Documented by: ASYA Sodium Chloride (0.9 % Sodium Chloride Flush 3 Ml Syringe) 3 ml IVFLUSH QSHIFT [facility] Last Admin: 03/23/21 09:23 Dose: 3 ml Documented by: ASYA Labs CBC & Chem 7: 03/23/21 07:26 03/23/21 07:26 Labs: Laboratory Results - last 24 hr 03/23/21 03/23/21 03/23/21 07:26 07:26 07:26 MCV 82.2 MCH 26.6 L MCHC 32.4 RDW 15.9 Plt Count 326 D MPV 11.2 Absolute Nucleated RBC 0.000 Nucleated RBC % (auto) 0.0 D-Dimer High Sensitivty 467 Anion Gap 13 Estim Creat Clear Calc 88.6 Estimated GFR > 60 Fasting Glucose 130 H Calcium 8.2 L Magnesium 2.5 Total Bilirubin 1.1 H Direct Bilirubin 0.6 H AST 16 ALT 14 Alkaline Phosphatase 63 Lactate Dehydrogenase 707 H C-Reactive Protein 11.32 H Total Protein 5.7 L Albumin 2.8 L Assessment and Plan (1) Acute respiratory failure with hypoxia: Status: Acute (2) COVID-19: Status: Acute Assessment and Plan: A 70 years old lady with PMH of asthma, HTN, I LD, COPD, MISSY who presented to the hospital with increased weakness and decreased oral intake. She was called by the emergency for positive blood culture. Acute on chronic hypoxia respiratory failure (normally on 3L home o2) 2/2 COVID-19 pneumonia worsened over last couple of days, stable today, to wean as tolerated monitor inflammatory markers continue dexamethasone day 9 completed remdesivir 03/20/21 coag negative staph on blood culture contaminant Acute kidney injury resolved hypernatremia resolved UTI ecoli completed 7 days ceftriaxone 03/21/21 Physical deconditioning The patient has poor baseline functional capacity to start with, has been the bed since coming to the hospital To start physical therapy once breathing is better DVT PPX Heparin Quality Stroke Does the patient have a stroke diagnosis?: No VTE Prior VTE?: No VTE Risk Level:: Medical - moderate - high VTE Device Contraindication: Treatment Not Indicated VTE Drug Contraindication: N/A - Med Ordered
--- NOTE | 2021-03-23 13:29 | MHC.CM.PN ---
Female 70 Covid+ No dc today. O2 requirement 11L. A PT eval will be performed for placement planning. DP home with [facility] home [facility] vs return to [facility].
[2021-03-23] MEDS: Atorvastatin Calcium 10 MG TABLET PO (20:24)
[2021-03-23] MEDS: Montelukast Sodium 10 MG TABLET PO (20:24)
[2021-03-24] VITALS (8 sets, daily range): BP systolic 118–168; BP diastolic 57–73; PULSE 55–67; RESP 15–20; TEMP 36.1–36.8; O2SAT 93–98
[2021-03-24] MEDS: Levothyroxine Sodium 50 MCG TABLET PO (06:01)
[2021-03-24] MEDS: Omeprazole 40 MG CAPSULE.DR PO (06:01)
[2021-03-24] MEDS: Heparin Sodium,Porcine 5,000 UNIT/ML VIAL 5000 UNIT SUBCUT ×2 (06:01→16:36)
[2021-03-24 07:14] LABS: Hematocrit 29.2 % (37.0-47.0); Hemoglobin 9.8 g/dl (12.0-16.0); Mean Corpuscular HGB Conc 33.6 g/dl (31.0-35.0); Mean Corpuscular Hemoglobin 27.5 pg (27.0-33.0); Mean Corpuscular Volume 81.8 fL (80.0-98.0); Mean Platelet Volume 11.3 fL (9.4-12.3); Platelet Count 314 X10*3/uL (160-400); Red Blood Count 3.57 X10*6/uL (4.20-5.50); White Blood Count 13.4 X10*3/uL (4.8-10.8)
[2021-03-24 07:45] LABS: Anion Gap 12 (12-20); Blood Urea Nitrogen 26 mg/dL (9-16); Calcium 7.7 mg/dL (8.4-10.2); Carbon Dioxide 25 mmol/L (22-29); Chloride 102 mmol/L (96-108); Creatinine Clr Calc Pharmacy 99.1; Estimated Glomerular Filt Rate > 60; Glucose Random 124 mg/dL (60-115); Potassium 4.3 mmol/L (3.3-5.1); Sodium 135 mmol/L (135-145)
[2021-03-24] MEDS: carvediloL 6.25 MG TABLET PO ×2 (10:16→20:36)
[2021-03-24] MEDS: dexAMETHasone sod phosphate 4 MG/ML VIAL 6 MG IVPUSH (10:20)
--- NOTE | 2021-03-24 10:20 | HO.PM.IMPN ---
Subjective Subjective Date of Service: 03/24/21 Interval History: the patient was seen and evaluated this morning Laying in bed, feels mild improvement Decrease requirements to 9 L of oxygen No reported other overnight events. Systemic review: Denies any fever, chills and generalized weakness No chest pain, palpitation Still having shortness of breath, on oxygen supplement No abdominal pain, nausea or vomiting No urinary symptoms No any rash or wounds Physical Exam Vital Signs: Vital Signs: Last Vital Signs Temp 97.6 F 03/24/21 07:07 Pulse 60 03/24/21 07:07 Resp 20 03/24/21 07:07 BP 134/57 L 03/24/21 07:07 Pulse Ox 95 03/24/21 07:07 Oxygen Flow Rate 3 03/14/21 10:37 BMI result Body Mass Index 49.9 Const: Other: Constitutional : Alert, more comfortable, mildly distressed, on oxygen supplement Neck : Normal inspection, Supple Cardiovascular : RRR, S1 S2, no lower extremity edema Respiratory : Decrease bilateral air entry, no crackles, wheezes or rhonchi, in mild respiratory distress, on oxygen supplement Gastrointestinal: soft, lax, Normal bowel sounds, Non tender Skin : Warm, Dry Neurological : Alert & oriented x3, No focal deficit Objective Data Active Medications Acetaminophen (Acetaminophen 325 Mg Tablet) 650 mg PO Q6H PRN PRN Reason: Pain, Mild (Pain Scale 1-3) Last Admin: 03/19/21 20:43 Dose: 650 mg Documented by: BONI Albuterol Sulfate (Albuterol Sulfate 90 Mcg 8 Gm Inhaler) 4 puff INHALE Q2H PRN PRN Reason: Shortness of Breath/Wheezing Atorvastatin Calcium (Atorvastatin Calcium 10 Mg Tablet) 10 mg PO BEDTIME [facility] Last Admin: 03/23/21 20:24 Dose: 10 mg Documented by: LAUREN Carvedilol (Carvedilol 6.25 Mg Tablet) 6.25 mg PO BID [facility]; Protocol Last Admin: 03/23/21 20:24 Dose: 6.25 mg Documented by: LAUREN Dexamethasone Sodium Phosphate (Dexamethasone Sod Phosphate 4 Mg/Ml Vial) 6 mg IVPUSH DAILY [facility] Last Admin: 03/23/21 09:26 Dose: 6 mg Documented by: ASYA Dicyclomine HCl (Dicyclomine Hcl 10 Mg Capsule) 10 mg PO QID PRN PRN Reason: diarrhea Last Admin: 03/16/21 22:32 Dose: 10 mg Documented by: CHASE Guaifenesin (Guaifenesin 200 Mg/10 Ml 10 Ml Liquid) 10 ml PO Q6H PRN PRN Reason: Cough Last Admin: 03/21/21 01:37 Dose: 10 ml Documented by: SIERRA Heparin Sodium (Porcine) (Heparin Sodium,Porcine 5,000 Unit/Ml Vial) 5,000 unit SUBCUT Q12H [facility] Last Admin: 03/24/21 06:01 Dose: 5,000 unit Documented by: DILIP Hydroxyzine HCl (Hydroxyzine Hcl 25 Mg Tablet) 25 mg PO Q6H PRN PRN Reason: anxiety/restlessness Levothyroxine Sodium (Levothyroxine Sodium 50 Mcg Tablet) 50 mcg PO DAILY@0600 [facility] Last Admin: 03/24/21 06:01 Dose: 50 mcg Documented by: DILIP Magnesium Oxide (Magnesium Oxide 400 Mg Tablet) 400 mg PO DAILY [facility] Last Admin: 03/23/21 09:33 Dose: 400 mg Documented by: ASYA Montelukast Sodium (Montelukast Sodium 10 Mg Tablet) 10 mg PO BEDTIME [facility] Last Admin: 03/23/21 20:24 Dose: 10 mg Documented by: LAUREN Morphine Sulfate (Morphine Sulfate 2 Mg/Ml Cartridge) 1 mg IVPUSH Q4H PRN; Protocol PRN Reason: Breakthrough Pain Omeprazole (Omeprazole 40 Mg Aldair.) 40 mg PO DAILY@0630 [facility] Last Admin: 03/24/21 06:01 Dose: 40 mg Documented by: DILIP Ondansetron HCl (Ondansetron Hcl 4 Mg/2 Ml Vial) 4 mg IVPUSH Q8H PRN PRN Reason: Nausea and Vomiting Last Admin: 03/21/21 03:38 Dose: 4 mg Documented by: SIERRA Pharmacy Consult (Consult Rx Perform Med Rec) 1 each MISCELLANE ONCE PRN PRN Reason: Consult order Pregabalin (Pregabalin 75 Mg Capsule) 225 mg PO BID [facility] Last Admin: 03/23/21 20:23 Dose: 225 mg Documented by: LAUREN Sodium Chloride (0.9 % Sodium Chloride Flush 3 Ml Syringe) 3 ml IVFLUSH QSHIFT [facility] Last Admin: 03/23/21 20:24 Dose: 3 ml Documented by: LAUREN Labs CBC & Chem 7: 03/24/21 06:57 03/24/21 06:57 Labs: Laboratory Results - last 24 hr 03/24/21 03/24/21 06:57 06:57 MCV 81.8 MCH 27.5 MCHC 33.6 RDW 16.0 Plt Count 314 MPV 11.3 Absolute Nucleated RBC 0.000 Nucleated RBC % (auto) 0.0 Anion Gap 12 Estim Creat Clear Calc 99.1 Estimated GFR > 60 Random Glucose 124 H Calcium 7.7 L D Assessment and Plan (1) Acute respiratory failure with hypoxia: Status: Acute (2) COVID-19: Status: Acute Assessment and Plan: A 70 years old lady with PMH of asthma, HTN, I LD, COPD, MISSY who presented to the hospital with increased weakness and decreased oral intake. She was called by the emergency for positive blood culture. Acute on chronic hypoxia respiratory failure (normally on 3L home o2) 2/2 COVID-19 pneumonia Started to improve Follow inflammatory markers continue dexamethasone day 10 completed remdesivir 03/20/21 coag negative staph on blood culture contaminant Acute kidney injury resolved hypernatremia resolved UTI ecoli completed 7 days ceftriaxone 03/21/21 Physical deconditioning The patient has poor baseline functional capacity to start with, has been the bed since coming to the hospital To start physical therapy tomorrow tolerable DVT PPX Heparin Quality Stroke Does the patient have a stroke diagnosis?: No VTE Prior VTE?: No VTE Risk Level:: Medical - moderate - high VTE Device Contraindication: Treatment Not Indicated VTE Drug Contraindication: N/A - Med Ordered
[2021-03-24] MEDS: Pregabalin 75 MG CAPSULE 225 MG PO ×2 (10:21→20:36)
[2021-03-24] MEDS: 0.9 % Sodium Chloride Flush 3 ML SYRINGE IVFLUSH ×3 (10:21→20:37)
[2021-03-24] MEDS: Magnesium Oxide 400 MG TABLET PO (10:30)
[2021-03-24] MEDS: Atorvastatin Calcium 10 MG TABLET PO (20:36)
[2021-03-24] MEDS: Montelukast Sodium 10 MG TABLET PO (20:36)
[2021-03-25] VITALS (9 sets, daily range): BP systolic 122–172; BP diastolic 62–74; PULSE 50–75; RESP 18–24; TEMP 36.1–36.9; O2SAT 92–97
[2021-03-25] MEDS: Heparin Sodium,Porcine 5,000 UNIT/ML VIAL 5000 UNIT SUBCUT ×2 (05:27→17:35)
[2021-03-25] MEDS: Omeprazole 40 MG CAPSULE.DR PO (05:28)
[2021-03-25] MEDS: Levothyroxine Sodium 50 MCG TABLET PO (05:28)
[2021-03-25 07:21] LABS: C Reactive Protein 4.07 mg/dL (< or = 0.50); Lactate Dehydrogenase 582 U/L (122-220)
[2021-03-25 07:30] LABS: Anion Gap 14 (12-20); Blood Urea Nitrogen 24 mg/dL (9-16); Calcium 7.5 mg/dL (8.4-10.2); Carbon Dioxide 24 mmol/L (22-29); Chloride 100 mmol/L (96-108); Creatinine Clr Calc Pharmacy 97.8; Estimated Glomerular Filt Rate > 60; Glucose Random 113 mg/dL (60-115); Sodium 133 mmol/L (135-145)
[2021-03-25] MEDS: dexAMETHasone sod phosphate 4 MG/ML VIAL 6 MG IVPUSH (08:23)
[2021-03-25] MEDS: 0.9 % Sodium Chloride Flush 3 ML SYRINGE IVFLUSH ×3 (08:23→20:15)
[2021-03-25] MEDS: Pregabalin 75 MG CAPSULE 225 MG PO ×2 (08:24→20:14)
[2021-03-25] MEDS: carvediloL 6.25 MG TABLET PO ×2 (08:25→20:15)
[2021-03-25] MEDS: Magnesium Oxide 400 MG TABLET PO (08:25)
--- NOTE | 2021-03-25 11:36 | MHC.CM.PN ---
Per ROUNDS discussion, Patient is not yet medically cleared for dc ( IV Decadron and 9L O2). PT recommends STR and CM will follow for dc planning.
--- NOTE | 2021-03-25 12:08 | P.PNIM_ITS ---
Subjective Subjective Date of Service: 03/25/21 Interval History: the patient was seen and evaluated this morning Laying in bed, feels mild improvement Decrease requirements to 8 L of oxygen No reported other overnight events. Systemic review: Denies any fever, chills and generalized weakness No chest pain, palpitation Still having shortness of breath, on oxygen supplement No abdominal pain, nausea or vomiting No urinary symptoms No any rash or wounds Physical Exam Vital Signs: Vital Signs: Last Vital Signs Temp 97.9 F 03/25/21 11:26 Pulse 75 03/25/21 11:26 Resp 24 H 03/25/21 11:26 BP 172/74 H 03/25/21 11:26 Pulse Ox 92 03/25/21 11:26 Oxygen Flow Rate 3 03/14/21 10:37 BMI result Body Mass Index 49.9 Const: Other: Constitutional : Alert, more comfortable, mildly distressed, on oxygen supplement Neck : Normal inspection, Supple Cardiovascular : RRR, S1 S2, no lower extremity edema Respiratory : Decrease bilateral air entry, no crackles, wheezes or rhonchi, in mild respiratory distress, on oxygen supplement Gastrointestinal: soft, lax, Normal bowel sounds, Non tender Skin : Warm, Dry Neurological : Alert & oriented x3, No focal deficit Objective Data Active Medications Acetaminophen (Acetaminophen 325 Mg Tablet) 650 mg PO Q6H PRN PRN Reason: Pain, Mild (Pain Scale 1-3) Last Admin: 03/19/21 20:43 Dose: 650 mg Documented by: BONI Albuterol Sulfate (Albuterol Sulfate 90 Mcg 8 Gm Inhaler) 4 puff INHALE Q2H PRN PRN Reason: Shortness of Breath/Wheezing Atorvastatin Calcium (Atorvastatin Calcium 10 Mg Tablet) 10 mg PO BEDTIME [facility] Last Admin: 03/24/21 20:36 Dose: 10 mg Documented by: DILIP Carvedilol (Carvedilol 6.25 Mg Tablet) 6.25 mg PO BID [facility]; Protocol Last Admin: 03/25/21 08:25 Dose: 6.25 mg Documented by: BAILEY Dexamethasone Sodium Phosphate (Dexamethasone Sod Phosphate 4 Mg/Ml Vial) 6 mg IVPUSH DAILY [facility] Last Admin: 03/25/21 08:23 Dose: 6 mg Documented by: BAILEY Dicyclomine HCl (Dicyclomine Hcl 10 Mg Capsule) 10 mg PO QID PRN PRN Reason: diarrhea Last Admin: 03/16/21 22:32 Dose: 10 mg Documented by: CHASE Guaifenesin (Guaifenesin 200 Mg/10 Ml 10 Ml Liquid) 10 ml PO Q6H PRN PRN Reason: Cough Last Admin: 03/21/21 01:37 Dose: 10 ml Documented by: SIERRA Heparin Sodium (Porcine) (Heparin Sodium,Porcine 5,000 Unit/Ml Vial) 5,000 unit SUBCUT Q12H [facility] Last Admin: 03/25/21 05:27 Dose: 5,000 unit Documented by: DILIP Hydroxyzine HCl (Hydroxyzine Hcl 25 Mg Tablet) 25 mg PO Q6H PRN PRN Reason: anxiety/restlessness Levothyroxine Sodium (Levothyroxine Sodium 50 Mcg Tablet) 50 mcg PO DAILY@0600 [facility] Last Admin: 03/25/21 05:28 Dose: 50 mcg Documented by: DILIP Magnesium Oxide (Magnesium Oxide 400 Mg Tablet) 400 mg PO DAILY [facility] Last Admin: 03/25/21 08:25 Dose: 400 mg Documented by: BIALEY Montelukast Sodium (Montelukast Sodium 10 Mg Tablet) 10 mg PO BEDTIME [facility] Last Admin: 03/24/21 20:36 Dose: 10 mg Documented by: DILIP Morphine Sulfate (Morphine Sulfate 2 Mg/Ml Cartridge) 1 mg IVPUSH Q4H PRN; Protocol PRN Reason: Breakthrough Pain Omeprazole (Omeprazole 40 Mg Capsule.) 40 mg PO DAILY@0630 [facility] Last Admin: 03/25/21 05:28 Dose: 40 mg Documented by: DILIP Ondansetron HCl (Ondansetron Hcl 4 Mg/2 Ml Vial) 4 mg IVPUSH Q8H PRN PRN Reason: Nausea and Vomiting Last Admin: 03/21/21 03:38 Dose: 4 mg Documented by: SIERRA Pharmacy Consult (Consult Rx Perform Med Rec) 1 each MISCELLANE ONCE PRN PRN Reason: Consult order Pregabalin (Pregabalin 75 Mg Capsule) 225 mg PO BID [facility] Last Admin: 03/25/21 08:24 Dose: 225 mg Documented by: BAILEY Sodium Chloride (0.9 % Sodium Chloride Flush 3 Ml Syringe) 3 ml IVFLUSH QSHIFT [facility] Last Admin: 03/25/21 08:23 Dose: 3 ml Documented by: BAILEY Labs CBC & Chem 7: 03/24/21 06:57 03/25/21 06:33 Labs: Laboratory Results - last 24 hr 03/25/21 03/25/21 06:33 06:33 Anion Gap 14 Estim Creat Clear Calc 97.8 Estimated GFR > 60 Random Glucose 113 Calcium 7.5 L Lactate Dehydrogenase 582 H C-Reactive Protein 4.07 H Assessment and Plan (1) Acute respiratory failure with hypoxia: Status: Acute (2) COVID-19: Status: Acute (3) Hyponatremia: Status: Acute Assessment and Plan: A 70 years old lady with PMH of asthma, HTN, I LD, COPD, MISSY who presented to the hospital with increased weakness and decreased oral intake. She was called by the emergency for positive blood culture. Acute on chronic hypoxia respiratory failure (normally on 3L home o2) 2/2 COVID-19 pneumonia Started to improve Follow inflammatory markers Finished total of 10 days of dexamethasone 03/25/2021 completed remdesivir 03/20/21 coag negative staph on blood culture contaminant Acute kidney injury resolved hypernatremia resolved UTI ecoli completed 7 days ceftriaxone 03/21/21 Physical deconditioning The patient has poor baseline functional capacity to start with, has been the bed since coming to the hospital To start physical therapy tomorrow if tolerable DVT PPX Heparin Quality Stroke Does the patient have a stroke diagnosis?: No VTE Prior VTE?: No VTE Risk Level:: Medical - moderate - high VTE Device Contraindication: Treatment Not Indicated VTE Drug Contraindication: N/A - Med Ordered
--- NOTE | 2021-03-25 16:34 | PC.NURSE ---
Report given to Caridad, RNs
[2021-03-25] MEDS: Atorvastatin Calcium 10 MG TABLET PO (20:15)
[2021-03-25] MEDS: Montelukast Sodium 10 MG TABLET PO (20:15)
[2021-03-26] VITALS (7 sets, daily range): BP systolic 124–163; BP diastolic 58–94; PULSE 63–73; RESP 18–22; TEMP 35.8–36.7; O2SAT 91–97
[2021-03-26] MEDS: Levothyroxine Sodium 50 MCG TABLET PO (05:43)
[2021-03-26] MEDS: Heparin Sodium,Porcine 5,000 UNIT/ML VIAL 5000 UNIT SUBCUT ×2 (05:43→18:24)
[2021-03-26] MEDS: Omeprazole 40 MG CAPSULE.DR PO (05:43)
[2021-03-26 07:50] LABS: Anion Gap 14 (12-20); Blood Urea Nitrogen 22 mg/dL (9-16); Calcium 7.5 mg/dL (8.4-10.2); Carbon Dioxide 21 mmol/L (22-29); Chloride 102 mmol/L (96-108); Creatinine Clr Calc Pharmacy 94.1; Estimated Glomerular Filt Rate > 60; Glucose Random 101 mg/dL (60-115); Potassium 5.9 mmol/L (3.3-5.1); Sodium 131 mmol/L (135-145)
[2021-03-26] MEDS: 0.9 % Sodium Chloride Flush 3 ML SYRINGE IVFLUSH ×2 (08:48→17:23)
[2021-03-26] MEDS: carvediloL 6.25 MG TABLET PO ×2 (08:48→21:11)
[2021-03-26] MEDS: Magnesium Oxide 400 MG TABLET PO (08:48)
[2021-03-26] MEDS: Pregabalin 75 MG CAPSULE 225 MG PO ×2 (08:48→21:11)
--- NOTE | 2021-03-26 10:49 | P.PNIM_ITS ---
Subjective Subjective Date of Service: 03/26/21 Interval History: the patient was seen and evaluated this morning Laying in bed, feels the same as before Oxygen requirements to 8 L of oxygen No reported other overnight events. Systemic review: Denies any fever, chills and generalized weakness No chest pain, palpitation Still having shortness of breath, on oxygen supplement No abdominal pain, nausea or vomiting No urinary symptoms No any rash or wounds Physical Exam Vital Signs: Vital Signs: Last Vital Signs Temp 97.3 F 03/26/21 07:44 Pulse 64 03/26/21 08:48 Resp 20 03/26/21 07:44 BP 139/94 H 03/26/21 08:48 Pulse Ox 95 03/26/21 07:44 Oxygen Flow Rate 3 03/14/21 10:37 BMI result Body Mass Index 49.9 Const: Other: Constitutional : Alert, more comfortable, mildly distressed, on oxygen supplement Neck : Normal inspection, Supple Cardiovascular : RRR, S1 S2, no lower extremity edema Respiratory : Decrease bilateral air entry, no crackles, wheezes or rhonchi, in mild respiratory distress, on oxygen supplement Gastrointestinal: soft, lax, Normal bowel sounds, Non tender Skin : Warm, Dry Neurological : Alert & oriented x3, No focal deficit Objective Data Active Medications Acetaminophen (Acetaminophen 325 Mg Tablet) 650 mg PO Q6H PRN PRN Reason: Pain, Mild (Pain Scale 1-3) Last Admin: 03/19/21 20:43 Dose: 650 mg Documented by: BONI Albuterol Sulfate (Albuterol Sulfate 90 Mcg 8 Gm Inhaler) 4 puff INHALE Q2H PRN PRN Reason: Shortness of Breath/Wheezing Atorvastatin Calcium (Atorvastatin Calcium 10 Mg Tablet) 10 mg PO BEDTIME [facility] Last Admin: 03/25/21 20:15 Dose: 10 mg Documented by: ANTOIC Carvedilol (Carvedilol 6.25 Mg Tablet) 6.25 mg PO BID [facility]; Protocol Last Admin: 03/26/21 08:48 Dose: 6.25 mg Documented by: ERYN Dicyclomine HCl (Dicyclomine Hcl 10 Mg Capsule) 10 mg PO QID PRN PRN Reason: diarrhea Last Admin: 03/16/21 22:32 Dose: 10 mg Documented by: CHASE Guaifenesin (Guaifenesin 200 Mg/10 Ml 10 Ml Liquid) 10 ml PO Q6H PRN PRN Reason: Cough Last Admin: 03/21/21 01:37 Dose: 10 ml Documented by: SIERRA Heparin Sodium (Porcine) (Heparin Sodium,Porcine 5,000 Unit/Ml Vial) 5,000 unit SUBCUT Q12H [facility] Last Admin: 03/26/21 05:43 Dose: 5,000 unit Documented by: ANTOIC Hydroxyzine HCl (Hydroxyzine Hcl 25 Mg Tablet) 25 mg PO Q6H PRN PRN Reason: anxiety/restlessness Levothyroxine Sodium (Levothyroxine Sodium 50 Mcg Tablet) 50 mcg PO DAILY@0600 [facility] Last Admin: 03/26/21 05:43 Dose: 50 mcg Documented by: ANTOIC Magnesium Oxide (Magnesium Oxide 400 Mg Tablet) 400 mg PO DAILY [facility] Last Admin: 03/26/21 08:48 Dose: 400 mg Documented by: ERYN Montelukast Sodium (Montelukast Sodium 10 Mg Tablet) 10 mg PO BEDTIME [facility] Last Admin: 03/25/21 20:15 Dose: 10 mg Documented by: SCOTT Morphine Sulfate (Morphine Sulfate 2 Mg/Ml Cartridge) 1 mg IVPUSH Q4H PRN; Protocol PRN Reason: Breakthrough Pain Omeprazole (Omeprazole 40 Mg Capsule.) 40 mg PO DAILY@0630 [facility] Last Admin: 03/26/21 05:43 Dose: 40 mg Documented by: ANTWHITNEY Ondansetron HCl (Ondansetron Hcl 4 Mg/2 Ml Vial) 4 mg IVPUSH Q8H PRN PRN Reason: Nausea and Vomiting Last Admin: 03/21/21 03:38 Dose: 4 mg Documented by: SIERRA Pharmacy Consult (Consult Rx Perform Med Rec) 1 each MISCELLANE ONCE PRN PRN Reason: Consult order Pregabalin (Pregabalin 75 Mg Capsule) 225 mg PO BID [facility] Last Admin: 03/26/21 08:48 Dose: 225 mg Documented by: ERYN Sodium Chloride (0.9 % Sodium Chloride Flush 3 Ml Syringe) 3 ml IVFLUSH QSHIFT [facility] Last Admin: 03/26/21 08:48 Dose: 3 ml Documented by: ERYN Labs CBC & Chem 7: 03/24/21 06:57 03/26/21 06:49 Labs: Laboratory Results - last 24 hr 03/26/21 06:49 Anion Gap 14 Estim Creat Clear Calc 94.1 Estimated GFR > 60 Random Glucose 101 Calcium 7.5 L Assessment and Plan (1) Hyponatremia: Status: Acute (2) Acute respiratory failure with hypoxia: Status: Acute (3) COVID-19: Status: Acute (4) Hyperkalemia: Status: Acute Assessment and Plan: A 70 years old lady with PMH of asthma, HTN, I LD, COPD, MISSY who presented to the hospital with increased weakness and decreased oral intake. She was called by the emergency for positive blood culture. Acute on chronic hypoxia respiratory failure (normally on 3L home o2) 2/2 COVID-19 pneumonia improving Follow inflammatory markers Finished total of 10 days of dexamethasone 03/25/2021 completed remdesivir 03/20/21 coag negative staph on blood culture contaminant Acute kidney injury resolved Hyponatremia Likely secondary to decreased oral intake Advised to eat more, and more solved to diet Hold Lasix Hyperkalemia Could be secondary to hemolysis of the sample Give Lokelma and repeat BMP UTI ecoli completed 7 days ceftriaxone 03/21/21 Physical deconditioning The patient has poor baseline functional capacity to start with, has been the bed since coming to the hospital To start physical therapy tomorrow if tolerable DVT PPX Heparin Quality Stroke Does the patient have a stroke diagnosis?: No VTE Prior VTE?: No VTE Risk Level:: Medical - moderate - high VTE Device Contraindication: Treatment Not Indicated VTE Drug Contraindication: N/A - Med Ordered
[2021-03-26] MEDS: Sodium Zirconium Cyclosilicate 5 GM POWD.PACK PO (11:52)
[2021-03-26] MEDS: Atorvastatin Calcium 10 MG TABLET PO (21:11)
[2021-03-26] MEDS: Montelukast Sodium 10 MG TABLET PO (21:11)
[2021-03-27] VITALS (7 sets, daily range): BP systolic 108–124; BP diastolic 56–82; PULSE 63–70; RESP 18–22; TEMP 35.8–36.8; O2SAT 91–94
--- NOTE | 2021-03-27 03:29 | PC.NURSE ---
suction to purewick became dislodged and suctioned to patients skin on lower abdomen and upper left thigh. There are two small blood blisters in these areas. pt reports no pain or discomfort with the area. Area was cleaned and left open to air.
[2021-03-27] MEDS: Omeprazole 40 MG CAPSULE.DR PO (06:14)
[2021-03-27] MEDS: Levothyroxine Sodium 50 MCG TABLET PO (06:14)
[2021-03-27] MEDS: Heparin Sodium,Porcine 5,000 UNIT/ML VIAL 5000 UNIT SUBCUT ×2 (06:15→18:28)
[2021-03-27 07:19] LABS: Anion Gap 12 (12-20); Blood Urea Nitrogen 24 mg/dL (9-16); C Reactive Protein 3.03 mg/dL (< or = 0.50); Calcium 7.9 mg/dL (8.4-10.2); Carbon Dioxide 27 mmol/L (22-29); Chloride 101 mmol/L (96-108); Creatinine Clr Calc Pharmacy 103.2; Estimated Glomerular Filt Rate > 60; Glucose Random 72 mg/dL (60-115); Lactate Dehydrogenase 512 U/L (122-220); Potassium 4.7 mmol/L (3.3-5.1); Sodium 135 mmol/L (135-145)
[2021-03-27] MEDS: carvediloL 6.25 MG TABLET PO ×2 (11:30→20:19)
[2021-03-27] MEDS: Pregabalin 75 MG CAPSULE 225 MG PO ×2 (11:31→20:19)
[2021-03-27] MEDS: 0.9 % Sodium Chloride Flush 3 ML SYRINGE IVFLUSH ×3 (11:32→20:19)
[2021-03-27] MEDS: Magnesium Oxide 400 MG TABLET PO (11:32)
--- NOTE | 2021-03-27 12:06 | P.PNIM_ITS ---
Subjective Subjective Date of Service: 03/27/21 Interval History: the patient was seen and evaluated this morning Laying in bed, feels the same as before Oxygen requirements to 6 L of oxygen No reported other overnight events. Systemic review: Denies any fever, chills and generalized weakness No chest pain, palpitation Still having shortness of breath, on oxygen supplement No abdominal pain, nausea or vomiting No urinary symptoms No any rash or wounds Review of Systems No fever, chills but increased generalized weakness and decreased oral intake No chest pain, palpitation No shortness of breath or coughing No abdominal pain, nausea or vomiting No urinary symptoms No any rash or wounds Physical Exam Vital Signs: Vital Signs: Last Vital Signs Temp 98.2 F 03/27/21 11:06 Pulse 63 03/27/21 11:30 Resp 22 H 03/27/21 11:06 BP 114/56 L 03/27/21 11:30 Pulse Ox 92 03/27/21 11:06 Oxygen Flow Rate 3 03/14/21 10:37 BMI result Body Mass Index 49.9 Const: Other: Constitutional : Alert, more comfortable, mildly distressed, on oxygen supplement Neck : Normal inspection, Supple Cardiovascular : RRR, S1 S2, no lower extremity edema Respiratory : Decrease bilateral air entry, no crackles, wheezes or rhonchi, in mild respiratory distress, on oxygen supplement Gastrointestinal: soft, lax, Normal bowel sounds, Non tender Skin : Warm, Dry Neurological : Alert & oriented x3, No focal deficit Objective Data Active Medications Acetaminophen (Acetaminophen 325 Mg Tablet) 650 mg PO Q6H PRN PRN Reason: Pain, Mild (Pain Scale 1-3) Last Admin: 03/19/21 20:43 Dose: 650 mg Documented by: BONI Albuterol Sulfate (Albuterol Sulfate 90 Mcg 8 Gm Inhaler) 4 puff INHALE Q2H PRN PRN Reason: Shortness of Breath/Wheezing Atorvastatin Calcium (Atorvastatin Calcium 10 Mg Tablet) 10 mg PO BEDTIME [facility] Last Admin: 03/26/21 21:11 Dose: 10 mg Documented by: ILDA Carvedilol (Carvedilol 6.25 Mg Tablet) 6.25 mg PO BID [facility]; Protocol Last Admin: 03/27/21 11:30 Dose: 6.25 mg Documented by: MYRIAM Dicyclomine HCl (Dicyclomine Hcl 10 Mg Capsule) 10 mg PO QID PRN PRN Reason: diarrhea Last Admin: 03/16/21 22:32 Dose: 10 mg Documented by: CHASE Guaifenesin (Guaifenesin 200 Mg/10 Ml 10 Ml Liquid) 10 ml PO Q6H PRN PRN Reason: Cough Last Admin: 03/21/21 01:37 Dose: 10 ml Documented by: SIERRA Heparin Sodium (Porcine) (Heparin Sodium,Porcine 5,000 Unit/Ml Vial) 5,000 unit SUBCUT Q12H [facility] Last Admin: 03/27/21 06:15 Dose: 5,000 unit Documented by: SIERRA Hydroxyzine HCl (Hydroxyzine Hcl 25 Mg Tablet) 25 mg PO Q6H PRN PRN Reason: anxiety/restlessness Levothyroxine Sodium (Levothyroxine Sodium 50 Mcg Tablet) 50 mcg PO DAILY@0600 [facility] Last Admin: 03/27/21 06:14 Dose: 50 mcg Documented by: SIERRA Magnesium Oxide (Magnesium Oxide 400 Mg Tablet) 400 mg PO DAILY [facility] Last Admin: 03/27/21 11:32 Dose: 400 mg Documented by: MYRIAM Montelukast Sodium (Montelukast Sodium 10 Mg Tablet) 10 mg PO BEDTIME [facility] Last Admin: 03/26/21 21:11 Dose: 10 mg Documented by: ILDA Omeprazole (Omeprazole 40 Mg Capsule.) 40 mg PO DAILY@0630 [facility] Last Admin: 03/27/21 06:14 Dose: 40 mg Documented by: SIERRA Ondansetron HCl (Ondansetron Hcl 4 Mg/2 Ml Vial) 4 mg IVPUSH Q8H PRN PRN Reason: Nausea and Vomiting Last Admin: 03/21/21 03:38 Dose: 4 mg Documented by: SIERRA Pharmacy Consult (Consult Rx Perform Med Rec) 1 each MISCELLANE ONCE PRN PRN Reason: Consult order Pregabalin (Pregabalin 75 Mg Capsule) 225 mg PO BID [facility] Last Admin: 03/27/21 11:31 Dose: 225 mg Documented by: MYRIAM Sodium Chloride (0.9 % Sodium Chloride Flush 3 Ml Syringe) 3 ml IVFLUSH QSHIFT [facility] Last Admin: 03/27/21 11:32 Dose: 3 ml Documented by: MYRIAM Labs CBC & Chem 7: 03/24/21 06:57 03/27/21 06:32 Labs: Laboratory Results - last 24 hr 03/27/21 06:32 Anion Gap 12 Estim Creat Clear Calc 103.2 Estimated GFR > 60 Random Glucose 72 Calcium 7.9 L Lactate Dehydrogenase 512 H C-Reactive Protein 3.03 H Assessment and Plan (1) Acute respiratory failure with hypoxia: Status: Acute (2) COVID-19: Status: Acute Assessment and Plan: A 70 years old lady with PMH of asthma, HTN, I LD, COPD, MISSY who presented to the hospital with increased weakness and decreased oral intake. She was called by the emergency for positive blood culture. Acute on chronic hypoxia respiratory failure (normally on 3L home o2) 2/2 COVID-19 pneumonia improving Follow inflammatory markers Finished total of 10 days of dexamethasone 03/25/2021 completed remdesivir 03/20/21 Continue to wean down oxygen as tolerated coag negative staph on blood culture contaminant Acute kidney injury resolved Hyponatremia Likely secondary to decreased oral intake Advised to eat more, and more solved to diet Hold Lasix Hyperkalemia Resolved Give Lokelma and repeat BMP UTI ecoli completed 7 days ceftriaxone 03/21/21 Physical deconditioning The patient has poor baseline functional capacity to start with, has been the bed since coming to the hospital To start physical therapy tomorrow with plan for SNF placement DVT PPX Heparin Quality Stroke Does the patient have a stroke diagnosis?: No VTE Prior VTE?: No VTE Risk Level:: Medical - moderate - high VTE Device Contraindication: Treatment Not Indicated VTE Drug Contraindication: N/A - Med Ordered
[2021-03-27] MEDS: Atorvastatin Calcium 10 MG TABLET PO (20:19)
[2021-03-27] MEDS: Montelukast Sodium 10 MG TABLET PO (20:19)
[2021-03-28 02:52] VITALS: BP 117/56; PULSE 64; RESP 18; TEMP 36.1; O2SAT 90
[2021-03-28] MEDS: Levothyroxine Sodium 50 MCG TABLET PO (05:59)
[2021-03-28] MEDS: Heparin Sodium,Porcine 5,000 UNIT/ML VIAL 5000 UNIT SUBCUT (05:59)
[2021-03-28] MEDS: Omeprazole 40 MG CAPSULE.DR PO (05:59)
[2021-03-28 07:45] VITALS: BP 128/58; PULSE 71; RESP 18; TEMP 36.6; O2SAT 94
[2021-03-28] MEDS: carvediloL 6.25 MG TABLET PO (09:23)
[2021-03-28] MEDS: Pregabalin 75 MG CAPSULE 225 MG PO (09:23)
[2021-03-28] MEDS: Magnesium Oxide 400 MG TABLET PO (09:23)
[2021-03-28] MEDS: 0.9 % Sodium Chloride Flush 3 ML SYRINGE IVFLUSH (09:23)
--- NOTE | 2021-03-28 10:37 | PM.DS ---
DS: Providers Provider Date of Service: 03/28/21 Date of admission: 03/14/21 16:28 Primary care physician: Bryanna Gama MD Consults: 03/15/21 07:53 Consult to Infectious Diseases Routine Consulting Provider: Nancy Peoples Reason for consultation: Covid, Hypoxia, +ve blood cx??, for your eval. DS: Diagnosis Discharge Diagnosis (1) Acute respiratory failure with hypoxia: Status: Acute (2) COVID-19: Status: Acute (3) Hyperkalemia: Status: Acute (4) Hyponatremia: Status: Acute (5) UTI (urinary tract infection): Status: Acute (6) DAVID (acute kidney injury): Status: Acute DS: Summary Hospital Course Hospital Course: Admission note HPI A 70 years old lady with PMH of asthma, HTN, I LD, COPD, MISSY who presents to the hospital with increased weakness and decreased oral intake.? She was called by the emergency for positive blood culture.? She reports that since starting the COVID Disease her oral intake has decreased significantly and she is feeling very weak and could not tolerate diet.? Denies any vomiting but she feels mildly nauseous and with no appetite.? She was in the emergency the day before and was diagnosed with COVID and found to have UTI treated with antibiotics.? Found to have acute kidney injury ?Advanced for further evaluation and treatment. Hospital course The patient admitted for acute on chronic hypoxic respiratory failure secondary to COVID-19 infection. Treated with 10 days of dexamethasone. Received remdesivir. Evaluated by infectious disease specialist as we wean her oxygen requirement down to 4 L today. Patient chronically on 2-3 L at home. Noted to have acute kidney injury at time of presentation with creatinine around 1.6 improved back to normal baseline within few days of admission. Has been stable with repeat BMP. Noticed to have electrolyte abnormalities of hyponatremia and hyperkalemia which both corrected with repeat blood work. Treated with 7 days of ceftriaxone for UTI caused by E coli. Evaluated by physical therapy team who recommended short-term rehab for physical deconditioning. No new medications needed at time of discharge. To continue her current medication and continue to wean her down on oxygen. Time Spent with Patient Time attestation: Total time spent providing and/or coordinating discharge services: Discharge coordination time: Greater than 30 minutes Quality: Stroke Does the patient have a stroke diagnosis?: No Physical Exam Vital Signs: Vital Signs: Last Vital Signs Temp 97.8 F 03/28/21 07:45 Pulse 71 03/28/21 07:45 Resp 18 03/28/21 07:45 BP 128/58 L 03/28/21 07:45 Pulse Ox 94 03/28/21 07:45 Oxygen Flow Rate 3 03/14/21 10:37 BMI result Body Mass Index 49.9 Const: Other: Constitutional : Alert, more comfortable, not in distress, on 4 L oxygen supplement Neck : Normal inspection, Supple Cardiovascular : RRR, S1 S2, no lower extremity edema Respiratory : Fair bilateral air entry but decreased at the bases, no crackles, no wheezes or rhonchi,on 4 L oxygen supplement Gastrointestinal: soft, lax, Normal bowel sounds, Non tender Skin : Warm, Dry Neurological : Alert & oriented x3, No focal deficit DS: Data Data Completed and Pending Completed studies during hospitalization [Text1]: Procedures Assistance with Respiratory Ventilation, Less than 24 Consecutive Hours, Continuous Positive Airway Pressure (07/30/20) Insertion of Endotracheal Airway into Trachea, Via Natural or Artificial Opening (09/24/20) Insertion of Infusion Device into Superior Vena Cava, Percutaneous Approach (09/24/20) Respiratory Ventilation, 24-96 Consecutive Hours (09/24/20) Discharge Plan Discharge Patient Disposition: [facility] Discharge Diagnosis: COVID-19 infection with hypoxic respiratory failure UTI, acute kidney injury Referrals: Bryanna Gama MD [Primary Care Provider] - 1 Week Discharge Medications: Continued atorvastatin 10 mg tablet 1 tab PO BEDTIME RF: 0 pantoprazole 40 mg tablet,delayed release (DR/EC) 1 tab PO DAILY RF: 0 dicyclomine 10 mg capsule 1 cap PO QID PRN (Reason: diarrhea) RF: 0 furosemide 40 mg tablet 1 tab PO DAILY RF: 0 fluticasone propion-salmeterol [Advair Diskus] 250-50 mcg/dose blister with device 1 puff PO BID RF: 0 carvedilol 6.25 mg tablet 1 tab PO BID RF: 0 cetirizine 10 mg tablet 1 tab PO DAILY RF: 0 magnesium oxide 400 mg (241.3 mg magnesium) tablet 1 tab PO DAILY RF: 0 levothyroxine 50 mcg tablet 1 tab PO DAILY RF: 0 ferrous sulfate 325 mg (65 mg iron) tablet 1 tab PO DAILY RF: 0 montelukast 10 mg tablet 1 tab PO BEDTIME RF: 0 ketoconazole 2 % cream 1 appl topical BID RF: 0 ciclopirox 0.77 % cream 1 appl topical BID RF: 0 pregabalin 225 mg capsule 1 cap PO BID RF: 0 Discontinued losartan 25 mg tablet 1 tab PO DAILY RF: 0 cefuroxime axetil 500 mg tablet 500 mg PO BID Qty: 13 RF: 0 Discharge Orders: Discharge Order (Routine); Ordered 03/28/21 Ordered By: Osvaldo Peres Diet: advance to usual diet Activity on Discharge: As tolerated Stand Alone Forms: Patient Portal Discharge page Care Plan Goals: Read below Health Concerns: Read below Plan of Treatment: Read below Assessment: You were admitted to the hospital for difficulty breathing. Found to COVID-19 infection. Treated with IV steroids, oxygen supplement and evaluated by Infectious Disease specialist. You were weaned down the oxygen as tolerated over the course of hospital stay. Finished treatment for COVID. Start physical therapy and continue weaning down oxygen to baseline.
[2021-03-28 11:08] VITALS: BP 130/60; PULSE 75; RESP 18; TEMP 36.2; O2SAT 95
--- NOTE | 2021-03-28 11:51 | MHC.CM.PN ---
Patient has been medically cleared for dc to [facility]/SNF today. CM spoke with Patient at room EXT 7543 and with Significant Other/[employer] @ [phone] and per their choice, Patient will dc today to [facility] choice SN[facility], via [facility]. IMM was addressed and will be mailed certified letter to Patient's address.
[2021-03-28 12:02] LABS: COVID-19 Test Positive (Negative)
== END 2021-03-28 15:27 | disposition skilled nursing facility (03) | DRG 177 ==
LOC: HO.ED 16:32 → HO.EDOVER 16:38 → HO.IMC 22:57
PROVIDERS: Internal Medicine; Physician Assistant Medical; Admitting Provider Student in an Organized Health Care Education/Training Program; Emergency Provider Emergency Medicine; PCP Internal Medicine; Visit Provider Student in an Organized Health Care Education/Training Program
DX: U07.1 COVID-19 (principal); J12.82 Pneumonia due to coronavirus disease 2019; J96.21 Acute and chronic respiratory failure with hypoxia; N17.9 Acute kidney failure, unspecified; N39.0 Urinary tract infection, site not specified; E87.0 Hyperosmolality and hypernatremia; B96.20 Unspecified Escherichia coli [E. coli] as the cause of diseases classified elsewhere; G47.33 Obstructive sleep apnea (adult) (pediatric); K21.9 Gastro-esophageal reflux disease without esophagitis; L89.152 Pressure ulcer of sacral region, stage 2; Z91.040 Latex allergy status; Z99.81 Dependence on supplemental oxygen; Z88.6 Allergy status to analgesic agent; Z79.51 Long term (current) use of inhaled steroids; Z79.890 Hormone replacement therapy; Z79.899 Other long term (current) drug therapy
CPT/HCPCS: 0241U; 36415; 71045; 80048; 80053; 80076; 81001; 83605; 83615; 83690; 83735; 83880; 84484; 85025; 85027; 85379; 85610; 86140; 87040; 87086; 87088; 87147; 87186; 87205; 87635; 93005; 96360; 96374; 97162; 99284; 99285; 99291; J0696; J1100; J2405; J3490

== ENCOUNTER 2021-05-02 01:05 | Outpatient (REF) | payer SELFPAY | END 2021-05-02 01:06 | disposition home or self-care (01) | LOC: HO.MMNH1L 01:05 | PROVIDERS: Visit Provider Family Medicine | DX: Z13.89 Encounter for screening for other disorder (principal) ==

== ENCOUNTER → 2021-06-07 15:11 | Outpatient (BNVA) | payer MEDICARE, MEDICAID, SELFPAY | PROVIDERS: PCP Internal Medicine; Visit Provider Internal Medicine | DX: G47.33 Obstructive sleep apnea (adult) (pediatric) (principal); J84.9 Interstitial pulmonary disease, unspecified; E66.2 Morbid (severe) obesity with alveolar hypoventilation; Z68.43 Body mass index [BMI] 50.0-59.9, adult; J45.909 Unspecified asthma, uncomplicated; Z79.899 Other long term (current) drug therapy | CPT/HCPCS: 94618; 99212 ==

== ENCOUNTER → 2021-12-27 15:54 | Outpatient (BNVA) | payer MEDICARE, MEDICAID, SELFPAY | PROVIDERS: PCP Internal Medicine; Visit Provider Internal Medicine | DX: E66.2 Morbid (severe) obesity with alveolar hypoventilation (principal); G47.33 Obstructive sleep apnea (adult) (pediatric); E66.01 Morbid (severe) obesity due to excess calories; Z68.43 Body mass index [BMI] 50.0-59.9, adult; J84.9 Interstitial pulmonary disease, unspecified; J69.0 Pneumonitis due to inhalation of food and vomit; J96.12 Chronic respiratory failure with hypercapnia; J96.11 Chronic respiratory failure with hypoxia | CPT/HCPCS: 99212 ==

== ENCOUNTER 2022-01-27 02:40 | Emergency (ER) | payer MEDICARE, MEDICAID, SELFPAY ==
--- NOTE | ~2022-01-27 | XR_ITS ---
EXAMINATION: XR CHEST CLINICAL INFORMATION: Chest pain COMPARISON: 03/14/2021 TECHNIQUE: Frontal view of the chest was obtained. FINDINGS: Cardiomegaly and pulmonary venous congestion without overt edema. There may be small bilateral pleural effusions. No pneumothorax. No acute osseous abnormalities. XR/XR chest 1V IMPRESSION: No acute pulmonary parenchymal abnormalities.
[2022-01-27 02:47] VITALS: BP 106/59; BP 128/40; PULSE 61; PULSE 65; RESP 20; TEMP 36.7; O2SAT 100; BMI 54.9
--- NOTE | 2022-01-27 03:33 | ED_ITS ---
HPI - Extremity Problem General Chief complaint: Extremity Injury, Upper Stated complaint: LEFT ARM PAIN Time Seen by Provider: 01/27/22 03:33 Source: patient Mode of arrival: ambulatory Limitations: no limitations History of Present Illness HPI Narrative: Patient morbidly obese weighing 145 kg with history of interstitial lung disease, asthma, hypertension, diastolic dysfunction on continues 3 L oxygen 24 hour was going multiple times to toilet and getting up from toilet seat while holding the handles complaining of left arm pain left chest pain but says that it was started prior to going to the toilet pain it gets worse on palpation on taking deep breath Related Data Home Medications Medication Instructions Recorded Confirmed carvedilol 6.25 mg tablet 1 tab PO BID 03/13/21 06/07/21 cetirizine 10 mg tablet 1 tab PO DAILY 03/13/21 06/07/21 ciclopirox 0.77 % topical cream 1 appl topical BID 03/13/21 06/07/21 ferrous sulfate 325 mg (65 mg 1 tab PO DAILY 03/13/21 06/07/21 iron) tablet furosemide 40 mg tablet 1 tab PO DAILY 03/13/21 06/07/21 ketoconazole 2 % topical cream 1 appl topical BID 03/13/21 06/07/21 levothyroxine 50 mcg tablet 1 tab PO DAILY 03/13/21 06/07/21 magnesium oxide 400 mg (241.3 mg 1 tab PO DAILY 03/13/21 06/07/21 magnesium) tablet montelukast 10 mg tablet 1 tab PO BEDTIME 03/13/21 06/07/21 pregabalin 225 mg capsule 1 cap PO BID 03/13/21 06/07/21 atorvastatin 10 mg tablet 1 tab PO BEDTIME 03/14/21 06/07/21 dexlansoprazole 60 mg 60 mg PO DAILY 06/07/21 06/07/21 capsule,biphase delayed release (Dexilant) losartan 25 mg tablet 25 mg PO DAILY 06/07/21 06/07/21 Previous Rx's Medication Instructions Recorded Advair Diskus 250 mcg-50 mcg/dose 1 ea PO BID #60 ea 12/05/21 powder for inhalation (fluticasone propion-salmeterol) Allergies Allergy/AdvReac Type Severity Reaction Status Date / Time celecoxib [From CELEBREX] Allergy Unknown RASH Verified 01/27/22 02:46 Latex, Natural Rubber Allergy Unknown Rash Verified 01/27/22 02:46 ibuprofen [IBUPROFEN] AdvReac Intermediate RASH Verified 01/27/22 02:46 Review of Systems Review of Systems: Yes all other systems are reviewed and are negative [facility] Past Medical History Medical History (Updated 01/27/22 @ 06:26 by Norberto Nolan MD) Asthma Diarrhea GERD (gastroesophageal reflux disease) Hypercholesteremia Hypertension Interstitial lung disease Neuropathy Respiratory failure Seasonal allergies Thyroid activity decreased Surgical History H/O: hysterectomy History of cholecystectomy Social History Social History Household Members: Spouse 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 Housing: Apartment Housing Other:: [place] Do you presently have visiting nurse or other home services: No Unable to assess alcohol history related to: Unable to respond and Unknown Alcohol intake: unknown Patient Tobacco Use Status: Never used Tobacco Advance Directives: Yes Advance Directives Information Provided: Yes Advance Directives on File: No service: No Current occupational status: retired Physical Exam Vital Signs: Vital Signs: Last Vital Signs Temp 98.1 F 01/27/22 06:05 Pulse 58 01/27/22 06:14 Resp 18 01/27/22 06:14 BP 119/44 L 01/27/22 06:14 Pulse Ox 100 01/27/22 06:14 O2 Del Method 01/27/22 06:14 O2 Flow Rate 3 01/27/22 06:14 Oxygen Flow Rate 3 01/27/22 02:47 BMI result Body Mass Index 54.9 Appearance: Alert. Oriented X3. No acute distress. Obese Eyes: PERRLA, No Nystagmus ENT: Pharynx normal. Oral Mucosa moist Neck: Normal inspection. Neck supple. CVS: Normal heart rate and rhythm. Pulses normal. Respiratory: No respiratory distress. Equal air entry bilateral, no wheezing/rales/rhonchi Abdomen: Soft and nontender. Bowel sounds are present, no mass palpable, no CVA tenderness Skin: Skin warm and dry. Normal skin color. Normal skin turgor. Extremities: No lower extremity edema. No calf tenderness Neuro: Oriented X 3. No motor deficit. No sensory deficit.No cerebellar signs , cranial nerves II-XII intact MDM - Extremity (Nontraumatic) MDM Narrative Medical decision making narrative: Patient muscular left arm and left chest pain which happened because she was getting up frequently from the toilet seat using the handlebar EKG without any acute ischemic changes troponins negative patient pain-free will discharge patient home Lab Data Attestation: I reviewed the patient's lab results. Result diagrams: 01/27/22 04:30 01/27/22 04:05 Labs: Lab Results 01/27/22 01/27/22 01/27/22 Range/Units 04:05 04:05 04:30 WBC 10.0 (4.8-10.8) X10*3/uL RBC 4.18 L D (4.20-5.50) X10*6/uL Hgb 11.9 L D (12.0-16.0) g/dl Hct 36.7 L D (37.0-47.0) % MCV 87.8 (80.0-98.0) fL MCH 28.5 (27.0-33.0) pg MCHC 32.4 (31.0-35.0) g/dl RDW 13.4 (11.0-16.0) % Plt Count 211 D (160-400) X10*3/uL MPV 10.9 (9.4-12.3) fL Immature Gran % (Auto) 0.2 (0.0-0.4) % Neut % (Auto) 65.9 (45-73) % Lymph % (Auto) 23.3 (20-40) % [place] % (Auto) 7.9 (2-11) % Eos % (Auto) 2.4 (0-4) % Baso % (Auto) 0.3 (0-2) % Lymph # (Auto) 2.3 (1.2-4.9) X10*3/uL [place] # (Auto) 0.8 (0.1-1.2) X10*3/uL Eos # (Auto) 0.2 (0.0-0.4) X10*3/uL Baso # (Auto) 0.0 (0.0-0.2) X10*3/uL Abs Immat Gran (auto) 0.02 (0.00-0.03) X10*3/uL Absolute Neuts (auto) 6.6 (2.0-8.3) x10*3/uL Absolute Nucleated RBC 0.000 (0.0-0.012) X10*3/uL Nucleated RBC % (auto) 0.0 (0.0-0.2) /100WBC Sodium 141 (135-145) mmol/L Potassium 4.0 (3.3-5.1) mmol/L Chloride 97 (96-108) mmol/L Carbon Dioxide 33 H (22-29) mmol/L Anion Gap 15 (12-20) BUN 28 H D (9-16) mg/dL Creatinine 1.19 (0.5-1.4) mg/dL Estim Creat Clear Calc 64.0 Estimated GFR 45 Random Glucose 96 (60-115) mg/dL Calcium 8.6 (8.4-10.2) mg/dL Magnesium 2.0 (1.6-2.6) mg/dL Total Bilirubin 0.9 (0.0-1.0) mg/dL AST 14 (5-31) U/L ALT < 6 (0-31) U/L Alkaline Phosphatase 91 D (39-117) U/L Troponin I High Sens 8.3 D (<3.5-17.0) ng/L Total Protein 6.6 D (6.5-8.0) g/dL Albumin 4.0 D (3.5-5.0) g/dL ECG Data Attestation EKG: I personally reviewed and interpreted this ECG as follows: Interpretation: Normal sinus rhythm heart rate 61 beats per minute right bundle-branch block no acute ST wave changes no acute ischemia Discharge Plan Discharge Clinical Impression: Musculoskeletal arm pain Patient Disposition: Home, Self-Care Instructions: Musculoskeletal Pain (ED) Additional Instructions: Tylenol for pain For with PCP if any concern Report to ER if worsening of chest pain Prescriptions: No Action fluticasone propion-salmeterol [Advair Diskus] 250-50 mcg/dose blister with device 1 ea PO BID Qty: 60 3RF atorvastatin 10 mg tablet 1 tab PO BEDTIME furosemide 40 mg tablet 1 tab PO DAILY carvedilol 6.25 mg tablet 1 tab PO BID cetirizine 10 mg tablet 1 tab PO DAILY magnesium oxide 400 mg (241.3 mg magnesium) tablet 1 tab PO DAILY levothyroxine 50 mcg tablet 1 tab PO DAILY ferrous sulfate 325 mg (65 mg iron) tablet 1 tab PO DAILY montelukast 10 mg tablet 1 tab PO BEDTIME ketoconazole 2 % cream 1 appl topical BID ciclopirox 0.77 % cream 1 appl topical BID pregabalin 225 mg capsule 1 cap PO BID losartan 25 mg tablet 25 mg PO DAILY dexlansoprazole [Dexilant] 60 mg capsule,biphase delayed releas 60 mg PO DAILY
--- NOTE | 2022-01-27 03:38 | ECG_ITS ---
Test Reason : CHEST PAIN Blood Pressure : / mmHG Vent. Rate : 061 BPM Atrial Rate : 061 BPM P-R Int : 210 ms QRS Dur : 148 ms QT Int : 514 ms P-R-T Axes : 040 -56 076 degrees QTc Int : 517 ms Sinus rhythm with 1st degree A-V block Right bundle branch block Left anterior fascicular block Bifascicular block Abnormal ECG When compared with ECG of 14-MAR-2021 11:03, NV interval has increased (RBBB and left anterior fascicular block) is now Present Referred By: Norberto Nolan Electronically Signed By:KIKA BANDA MD
--- NOTE | 2022-01-27 03:45 | PC.NURSE ---
pt a&ox3, vss, pt reporting pain in left upper arm - pt uses left arm for repositioning and getting on and off toilet, pain started at 1999. tech at bedside obtaining EKG/labs.
[2022-01-27 04:09] LABS: MANUAL DIFF FLAG NO
[2022-01-27 04:30] LABS: Troponin-I High Sensitivity 8.3 ng/L (<3.5-17.0)
[2022-01-27 04:32] LABS: Alanine Aminotransferase < 6 U/L (0-31); Alkaline Phosphatase 91 U/L (39-117); Anion Gap 15 (12-20); Aspartate Amino Transferase 14 U/L (5-31); Bilirubin Total 0.9 mg/dL (0.0-1.0); Blood Urea Nitrogen 28 mg/dL (9-16); Calcium 8.6 mg/dL (8.4-10.2); Carbon Dioxide 33 mmol/L (22-29); Chloride 97 mmol/L (96-108); Estimated Glomerular Filt Rate 45; Glucose Random 96 mg/dL (60-115); Sodium 141 mmol/L (135-145); Total Protein 6.6 g/dL (6.5-8.0)
[2022-01-27 04:38] LABS: Basophils Percent Auto 0.3 % (0-2); Eosinophils Absolute Auto 0.2 X10*3/uL (0.0-0.4); Eosinophils Percent Auto 2.4 % (0-4); Hematocrit 36.7 % (37.0-47.0); Hemoglobin 11.9 g/dl (12.0-16.0); Imm Gran Abs Auto 0.02 X10*3/uL (0.00-0.03); Imm Gran Pct Auto 0.2 % (0.0-0.4); Lymphocytes Absolute Auto 2.3 X10*3/uL (1.2-4.9); Lymphocytes Percent Auto 23.3 % (20-40); Mean Corpuscular HGB Conc 32.4 g/dl (31.0-35.0); Mean Corpuscular Hemoglobin 28.5 pg (27.0-33.0); Mean Corpuscular Volume 87.8 fL (80.0-98.0); Mean Platelet Volume 10.9 fL (9.4-12.3); Monocytes Absolute Auto 0.8 X10*3/uL (0.1-1.2); Monocytes Percent Auto 7.9 % (2-11); Neutrophils Absolute Auto 6.6 x10*3/uL (2.0-8.3); Neutrophils Percent Auto 65.9 % (45-73); Platelet Count 211 X10*3/uL (160-400); Red Blood Count 4.18 X10*6/uL (4.20-5.50); Red Cell Distribution Width 13.4 % (11.0-16.0)
--- NOTE | 2022-01-27 05:24 | PC.NURSE ---
pt sleeping, RR even and unlabored.
[2022-01-27 06:05] VITALS: BP 99/32; PULSE 56; RESP 18; TEMP 36.7; O2SAT 100
[2022-01-27 06:14] VITALS: BP 119/44; PULSE 58; RESP 18; O2SAT 100
--- NOTE | 2022-01-27 06:16 | PC.NURSE ---
contacted pts partner for ride home - per pt request reminded them to bring O2 canister and a clean brief. est to be here in the next 30 mins.
== END 2022-01-27 07:20 | disposition home or self-care (01) ==
PROVIDERS: Emergency Provider Internal Medicine
DX: M79.18 Myalgia, other site (principal); M79.602 Pain in left arm; I10 Essential (primary) hypertension; E78.00 Pure hypercholesterolemia, unspecified; E66.01 Morbid (severe) obesity due to excess calories; Z68.43 Body mass index [BMI] 50.0-59.9, adult
CPT/HCPCS: 36415; 71045; 80053; 83735; 84484; 85025; 93005; 99283; 99284

== ENCOUNTER 2022-05-09 14:25 | Emergency (ER) | payer MEDICARE, MEDICAID, SELFPAY ==
--- NOTE | ~2022-05-09 | XR_ITS ---
EXAMINATION: XR CHEST CLINICAL INFORMATION: Chest pain and shortness of breath. COMPARISON: Chest radiograph 01/27/2022. TECHNIQUE: 2 views of the chest were obtained. FINDINGS: Stable cardiomegaly. Central vasculature engorgement with mild diffuse interstitial prominence. No focal consolidation. No pleural effusion or pneumothorax. Thoracic spondylosis. No acute osseous abnormalities. The visualized upper abdomen is within normal limits. XR/XR chest 2V IMPRESSION: Central vasculature engorgement with mild diffuse interstitial prominence raising the possibility of pulmonary edema in the appropriate clinical context. No focal airspace opacity. Clear pleural spaces.
[2022-05-09 14:49] VITALS: BP 124/78; BP 142/50; PULSE 67; PULSE 70; RESP 20; TEMP 36.7; O2SAT 100; BMI 54.4
--- NOTE | 2022-05-09 14:56 | ED_ITS ---
HPI - General Adult General Chief complaint: General Medical <Juana PhanVALDEMAR - Last Filed: 05/09/22 18:05> Stated complaint: SOB,BLE SWELLING,HOME O2 <Juana PhanVALDEMAR - Last Filed: 05/09/22 18:05> Time Seen by Provider: 05/09/22 14:34 <Juana Cross VALDEMAR Phan - Last Filed: 05/09/22 18:05> Source: patient <Juana PhanVALDEMAR - Last Filed: 05/09/22 18:05> Mode of arrival: EMS <Juana PhanVALDEMAR - Last Filed: 05/09/22 18:05> Limitations: no limitations <Juana PhanVALDEMAR - Last Filed: 05/09/22 18:05> History of Present Illness HPI narrative: patient is a 71-year-old female who presents to the emergency department via EMS. She reports that for the past week she has noticed edema to the bilateral lower extremities, diffuse from the thighs down to the ankles. She states it is not uncommon for her to get edema due to her history of CHF, but it has significantly increased in size. Today her significant other was concerned about the amount of swelling to her feet when going to place her shoes so that she could go to pulmonology appointment, and therefore EMS was called. Additionally, she states that particularly today she has been increasingly more short of breath, noting generalized weakness. Upon EMS arrival to her home, patient stated at that time she began developed being midsternal chest pain, that was worse with deep breathing. <Juana Cross VALDEMAR Phan - Last Filed: 05/09/22 18:05> Related Data Home medications: Home Medications Medication Instructions Recorded Confirmed carvedilol 6.25 mg tablet 1 tab PO BID 03/13/21 06/07/21 cetirizine 10 mg tablet 1 tab PO DAILY 03/13/21 06/07/21 ciclopirox 0.77 % topical cream 1 appl topical BID 03/13/21 06/07/21 ferrous sulfate 325 mg (65 mg 1 tab PO DAILY 03/13/21 06/07/21 iron) tablet furosemide 40 mg tablet 1 tab PO DAILY 03/13/21 06/07/21 ketoconazole 2 % topical cream 1 appl topical BID 03/13/21 06/07/21 levothyroxine 50 mcg tablet 1 tab PO DAILY 03/13/21 06/07/21 magnesium oxide 400 mg (241.3 mg 1 tab PO DAILY 03/13/21 06/07/21 magnesium) tablet montelukast 10 mg tablet 1 tab PO BEDTIME 03/13/21 06/07/21 pregabalin 225 mg capsule 1 cap PO BID 03/13/21 06/07/21 atorvastatin 10 mg tablet 1 tab PO BEDTIME 03/14/21 06/07/21 dexlansoprazole 60 mg 60 mg PO DAILY 06/07/21 06/07/21 capsule,biphase delayed release (Dexilant) losartan 25 mg tablet 25 mg PO DAILY 06/07/21 06/07/21 Previous Rx's Medication Instructions Recorded Advair Diskus 250 mcg-50 mcg/dose 1 ea PO BID #60 ea 12/05/21 powder for inhalation (fluticasone propion-salmeterol) budesonide 0.5 mg/2 mL suspension 0.5 mg (2 mL) inhalation BID copd 03/16/22 for nebulization 30 days #120 mL <Juana Phan CNP - Last Filed: 05/09/22 18:05> Allergies/adverse reactions: Allergies Allergy/AdvReac Type Severity Reaction Status Date / Time celecoxib [From CELEBREX] Allergy Unknown RASH Verified 01/27/22 02:46 Latex, Natural Rubber Allergy Unknown Rash Verified 01/27/22 02:46 ibuprofen [IBUPROFEN] AdvReac Intermediate RASH Verified 01/27/22 02:46 <Juana Phan CNP - Last Filed: 05/09/22 18:05> Review of Systems Review of Systems: Constitutional : No Fever, No Chills ENT/Mouth : No sore throat, No Rhinorrhea, No Swallowing Difficulty Eyes: No Eye Pain, No Swelling, No Redness Cardiovascular : No Chest Pain, positive SOB, Positive Orthopnea, positive Edema Respiratory : No Cough, No Sputum, No Wheezing, positive dyspnea Gastrointestinal : No Nausea, No Vomiting, No Diarrhea, No abdominal Pain, No Hematochezia, No Melena Genitourinary : No Dysuria, No Urinary Frequency, No Hematuria Musculoskeletal : No joint pain, No Myalgias Skin : No Skin Lesions, No rash Neuro : No Weakness, No Numbness, No Dizziness, No Headache Psych : No Anxiety/Panic, No Depression Heme/Lymph: No Bruising, No Lymphadenopathy Endocrine : No Polyuria, No Polydipsia <Juana Phan CNP - Last Filed: 05/09/22 18:05> Yes all other systems are reviewed and are negative <Juana Phan CNP - Last Filed: 05/09/22 18:05> [facility] Past Medical History Attestation statement: The following information was validated with the patient. 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 Housing: Apartment Housing Other:: [place] Do you presently have visiting nurse or other home services: No Unable to assess alcohol history related to: Unable to respond and Unknown Alcohol intake: unknown Patient Tobacco Use Status: Never used Tobacco Smoked in Last 30 Days: No Use of substances other than those prescribed or required for medical reasons: Unknown Advance Directives: No Advance Directives Information Provided: Yes service: No Current occupational status: retired <Juana Phan CNP - Last Filed: 05/09/22 18:05> Physical Exam ED Vital Signs: Vital Signs - 24 hr 05/09/22 14:49 05/09/22 15:43 05/09/22 16:00 Temperature 98.0 F Pulse Rate 67 64 Respiratory Rate 20 18 18 Blood Pressure 142/50 H Pulse Oximetry 100 Oxygen Delivery Method Room Air Nasal Cannula BMI result Body Mass Index 54.4 <Juana Phan CNP - Last Filed: 05/09/22 18:05> Vital Signs - 24 hr 05/09/22 14:49 05/09/22 15:43 05/09/22 16:00 Temperature 98.0 F Pulse Rate 67 64 Respiratory Rate 20 18 18 Blood Pressure 142/50 H Pulse Oximetry 100 Oxygen Delivery Method Room Air Nasal Cannula BMI result Body Mass Index 54.4 <SHON Sherwood - Last Filed: 05/09/22 20:05> Appearance: Alert.?Oriented to person, place and time. No acute distress.?Normal affect. Eyes: Pupils equal, round and reactive to light.? ENT: Pharynx normal.?? Neck: Normal inspection.? Neck supple.?? CVS: Heart sounds normal. Normal heart rate and rhythm.? Pulses normal.?? Respiratory: No respiratory distress.? Lung sounds are diminished but clear bilaterally.?? Abdomen: Soft and non-tender. Normoactive bowel sounds. Skin: Skin warm and dry.? Normal skin color.? Extremities: positive 2+ pitting bilateral lower extremity edema.? No calf ttp? Neuro: Moves all extremities spontaneously. Sensation intact bilaterally. CN II- XII intact. No focal neuro deficits. Ambulates with normal steady gait. <Juana Phan CNP - Last Filed: 05/09/22 18:05> Course Reevaluation(s) Reevaluation #1: CBC reveals no leukocytosis, normocytic anemia is present which appears comparable to baseline. BNP 52, chest x-ray Revealing central vascular engorgement, mild diffuse interstitial prominence, likely pulmonary edema, no opacities, consolidation, or pleural effusion. clinically, this does not appear to be acute CHF exacerbation, I do not feel that she requires intravenous diuresis at this time. Troponin 5.3, EKG revealing sinus rhythm first-degree AV block, bifascicular block which appears consistent with prior EKG from January 2022, lower suspicion for ACS, however given age, past medical history will obtain delta troponin to exclude ACS. COVID-19 and influenza testing are negative. <Juana Phan CNP - Last Filed: 05/09/22 18:05> Time: 16:44 <Juana Cross VALDEMAR Phan - Last Filed: 05/09/22 18:05> Reevaluation #2: patient signed out to Jose Alberto daniels pending delta troponin. If normal, patient may cleared for discharge home. Patient is agreeable with this plan of care. <Juanataras Phan CNP - Last Filed: 05/09/22 18:05> Time: 18:01 <Juana Cross VALDEMAR Phan - Last Filed: 05/09/22 18:05> Reevaluation #3: Patient's troponin [address] Rosado patient can be discharged home, I did go evaluate patient on my own, patient tells me that she always has chest discomfort and shortness of breath at baseline, she does wear home oxygen, she tells me that today the chest discomfort and shortness of breath were not a problem she tells me she was concerned about the swelling to her lower extremities bilaterally. She tells me at this time she is not experiencing any chest pain or shortness of breath out of the ordinary. Patient would like to go home at this time. EKG nonischemic, at this time patient will be discharged home. She is saturating 100% on her home nasal cannula. Educated patient on diagnosis and treatment plan, answered all question, patient verbalizes understanding. At this time patient will be discharged home, advised to return with new or worsening symptoms. Educated on worrisome signs and symptoms and when to return. At this time I feel comfortable discharge home. <SHON Sherwood - Last Filed: 05/09/22 20:05> Time: 20:04 <SHON Sherwood - Last Filed: 05/09/22 20:05> Medical Decision Making Medical Decision Making MDM Narrative: Patient is a 71-year-old female with reported past medical history of asthma, COPD, interstitial lung disease, GERD, hyperlipidemia, hypertension, CHF prescribd furosemide 40mg PO, most recent EF 55-60% July 2020, O2 dependence on 2 L via nasal cannula presenting to the emergency department today via EMS with reports of bilateral lower extremity edema, increasing dyspnea on exertion, weakness. At the time examination she is overall well-appearing, no apparent respiratory distress. Afebrile without tachycardia tachypnea or hypoxia. Lung sounds overall clear but diminished bilaterally, no rales, rhonchi, or wheezing. 2+ pitting pedal edema bilaterally. Will obtain CBC to evaluate for leukocytosis/ anemia, CMP to evaluate for abnormal electrolytes /abnormal renal function/ abnormal hepatic function, BNP, EKG and troponin to evaluate for ischemia/ACS. Chest x-ray to evaluate for consolidation/ infiltrate/ mass/ pulmonary congestion and Urinalysis. <Juana Phan CNP - Last Filed: 05/09/22 18:05> Differential Diagnosis Differential Diagnoses: The differential diagnosis associated with the presentation includes ( As noted above) <Juana Phan CNP - Last Filed: 05/09/22 18:05> Admission/Observation Consideration of admission/observation: Escalation of care including admission/observation considered <Juana Phan CNP - Last Filed: 05/09/22 18:05> Lab Data MDM Lab Attestation statement: I reviewed the patient's lab results. <Juana Phan CNP - Last Filed: 05/09/22 18:05> Result Diagrams: 05/09/22 15:40 05/09/22 15:40 <Juana Phan CNP - Last Filed: 05/09/22 18:05> Labs: Lab Results 05/09/22 05/09/22 05/09/22 Range/Units 15:40 15:40 15:40 WBC 6.5 (4.8-10.8) X10*3/uL RBC 3.68 L (4.20-5.50) X10*6/uL Hgb 10.6 L (12.0-16.0) g/dl Hct 32.3 L (37.0-47.0) % MCV 87.8 (80.0-98.0) fL MCH 28.8 (27.0-33.0) pg MCHC 32.8 (31.0-35.0) g/dl RDW 13.9 (11.0-16.0) % Plt Count 276 D (160-400) X10*3/uL MPV 10.7 (9.4-12.3) fL Immature Gran % (Auto) 0.2 (0.0-0.4) % Neut % (Auto) 67.1 (45-73) % Lymph % (Auto) 20.5 (20-40) % Estill % (Auto) 8.4 (2-11) % Eos % (Auto) 3.5 (0-4) % Baso % (Auto) 0.3 (0-2) % Lymph # (Auto) 1.3 (1.2-4.9) X10*3/uL Estill # (Auto) 0.6 (0.1-1.2) X10*3/uL Eos # (Auto) 0.2 (0.0-0.4) X10*3/uL Baso # (Auto) 0.0 (0.0-0.2) X10*3/uL Abs Immat Gran (auto) 0.01 (0.00-0.03) X10*3/uL Absolute Neuts (auto) 4.4 (2.0-8.3) x10*3/uL Absolute Nucleated RBC 0.000 (0.0-0.012) X10*3/uL Nucleated RBC % (auto) 0.0 (0.0-0.2) /100WBC PT 12.5 (10.0-13.1) SEC INR 1.1 (0.9-1.1) Sodium 143 (135-145) mmol/L Potassium 4.4 (3.3-5.1) mmol/L Chloride 102 (96-108) mmol/L Carbon Dioxide 34 H (22-29) mmol/L Anion Gap 11 L (12-20) BUN 29 H (9-16) mg/dL Creatinine 1.21 (0.5-1.4) mg/dL Estim Creat Clear Calc 64.8 Estimated GFR 44 Random Glucose 100 (60-115) mg/dL Calcium 8.5 (8.4-10.2) mg/dL Magnesium 2.1 (1.6-2.6) mg/dL Total Bilirubin 0.7 (0.0-1.0) mg/dL AST 12 (5-31) U/L ALT 6 (0-31) U/L Alkaline Phosphatase 96 (39-117) U/L Troponin I High Sens (<3.5-17.0) ng/L B-Natriuretic Peptide (<100) pg/mL Total Protein 6.1 L (6.5-8.0) g/dL Albumin 3.8 (3.5-5.0) g/dL Lipase 26 (8-78) U/L COVID-19 (THEO) (Negative) COVID-19 Clin Com Influenza Type A (TEZ) (Negative) Influenza Type B (TEZ) (Negative) Influenza A & B Note 05/09/22 05/09/22 05/09/22 Range/Units 15:40 15:40 15:40 WBC (4.8-10.8) X10*3/uL RBC (4.20-5.50) X10*6/uL Hgb (12.0-16.0) g/dl Hct (37.0-47.0) % MCV (80.0-98.0) fL MCH (27.0-33.0) pg MCHC (31.0-35.0) g/dl RDW (11.0-16.0) % Plt Count (160-400) X10*3/uL MPV (9.4-12.3) fL Immature Gran % (Auto) (0.0-0.4) % Neut % (Auto) (45-73) % Lymph % (Auto) (20-40) % Estill % (Auto) (2-11) % Eos % (Auto) (0-4) % Baso % (Auto) (0-2) % Lymph # (Auto) (1.2-4.9) X10*3/uL Estill # (Auto) (0.1-1.2) X10*3/uL Eos # (Auto) (0.0-0.4) X10*3/uL Baso # (Auto) (0.0-0.2) X10*3/uL Abs Immat Gran (auto) (0.00-0.03) X10*3/uL Absolute Neuts (auto) (2.0-8.3) x10*3/uL Absolute Nucleated RBC (0.0-0.012) X10*3/uL Nucleated RBC % (auto) (0.0-0.2) /100WBC PT (10.0-13.1) SEC INR (0.9-1.1) Sodium (135-145) mmol/L Potassium (3.3-5.1) mmol/L Chloride (96-108) mmol/L Carbon Dioxide (22-29) mmol/L Anion Gap (12-20) BUN (9-16) mg/dL Creatinine (0.5-1.4) mg/dL Estim Creat Clear Calc Estimated GFR Random Glucose (60-115) mg/dL Calcium (8.4-10.2) mg/dL Magnesium (1.6-2.6) mg/dL Total Bilirubin (0.0-1.0) mg/dL AST (5-31) U/L ALT (0-31) U/L Alkaline Phosphatase (39-117) U/L Troponin I High Sens 5.3 (<3.5-17.0) ng/L B-Natriuretic Peptide 52 (<100) pg/mL Total Protein (6.5-8.0) g/dL Albumin (3.5-5.0) g/dL Lipase (8-78) U/L COVID-19 (THEO) (Negative) COVID-19 Clin Com Influenza Type A (TEZ) Negative (Negative) Influenza Type B (TEZ) Negative (Negative) Influenza A & B Note See Note 05/09/22 05/09/22 Range/Units 15:40 19:10 WBC (4.8-10.8) X10*3/uL RBC (4.20-5.50) X10*6/uL Hgb (12.0-16.0) g/dl Hct (37.0-47.0) % MCV (80.0-98.0) fL MCH (27.0-33.0) pg MCHC (31.0-35.0) g/dl RDW (11.0-16.0) % Plt Count (160-400) X10*3/uL MPV (9.4-12.3) fL Immature Gran % (Auto) (0.0-0.4) % Neut % (Auto) (45-73) % Lymph % (Auto) (20-40) % Estill % (Auto) (2-11) % Eos % (Auto) (0-4) % Baso % (Auto) (0-2) % Lymph # (Auto) (1.2-4.9) X10*3/uL Estill # (Auto) (0.1-1.2) X10*3/uL Eos # (Auto) (0.0-0.4) X10*3/uL Baso # (Auto) (0.0-0.2) X10*3/uL Abs Immat Gran (auto) (0.00-0.03) X10*3/uL Absolute Neuts (auto) (2.0-8.3) x10*3/uL Absolute Nucleated RBC (0.0-0.012) X10*3/uL Nucleated RBC % (auto) (0.0-0.2) /100WBC PT (10.0-13.1) SEC INR (0.9-1.1) Sodium (135-145) mmol/L Potassium (3.3-5.1) mmol/L Chloride (96-108) mmol/L Carbon Dioxide (22-29) mmol/L Anion Gap (12-20) BUN (9-16) mg/dL Creatinine (0.5-1.4) mg/dL Estim Creat Clear Calc Estimated GFR Random Glucose (60-115) mg/dL Calcium (8.4-10.2) mg/dL Magnesium (1.6-2.6) mg/dL Total Bilirubin (0.0-1.0) mg/dL AST (5-31) U/L ALT (0-31) U/L Alkaline Phosphatase (39-117) U/L Troponin I High Sens 8.0 D (<3.5-17.0) ng/L B-Natriuretic Peptide (<100) pg/mL Total Protein (6.5-8.0) g/dL Albumin (3.5-5.0) g/dL Lipase (8-78) U/L COVID-19 (THEO) Negative (Negative) COVID-19 Clin Com See Note Influenza Type A (TEZ) (Negative) Influenza Type B (TEZ) (Negative) Influenza A & B Note <Juana Phan CNP - Last Filed: 05/09/22 18:05> Lab Results 05/09/22 05/09/22 05/09/22 Range/Units 15:40 15:40 15:40 WBC 6.5 (4.8-10.8) X10*3/uL RBC 3.68 L (4.20-5.50) X10*6/uL Hgb 10.6 L (12.0-16.0) g/dl Hct 32.3 L (37.0-47.0) % MCV 87.8 (80.0-98.0) fL MCH 28.8 (27.0-33.0) pg MCHC 32.8 (31.0-35.0) g/dl RDW 13.9 (11.0-16.0) % Plt Count 276 D (160-400) X10*3/uL MPV 10.7 (9.4-12.3) fL Immature Gran % (Auto) 0.2 (0.0-0.4) % Neut % (Auto) 67.1 (45-73) % Lymph % (Auto) 20.5 (20-40) % Estill % (Auto) 8.4 (2-11) % Eos % (Auto) 3.5 (0-4) % Baso % (Auto) 0.3 (0-2) % Lymph # (Auto) 1.3 (1.2-4.9) X10*3/uL Estill # (Auto) 0.6 (0.1-1.2) X10*3/uL Eos # (Auto) 0.2 (0.0-0.4) X10*3/uL Baso # (Auto) 0.0 (0.0-0.2) X10*3/uL Abs Immat Gran (auto) 0.01 (0.00-0.03) X10*3/uL Absolute Neuts (auto) 4.4 (2.0-8.3) x10*3/uL Absolute Nucleated RBC 0.000 (0.0-0.012) X10*3/uL Nucleated RBC % (auto) 0.0 (0.0-0.2) /100WBC PT 12.5 (10.0-13.1) SEC INR 1.1 (0.9-1.1) Sodium 143 (135-145) mmol/L Potassium 4.4 (3.3-5.1) mmol/L Chloride 102 (96-108) mmol/L Carbon Dioxide 34 H (22-29) mmol/L Anion Gap 11 L (12-20) BUN 29 H (9-16) mg/dL Creatinine 1.21 (0.5-1.4) mg/dL Estim Creat Clear Calc 64.8 Estimated GFR 44 Random Glucose 100 (60-115) mg/dL Calcium 8.5 (8.4-10.2) mg/dL Magnesium 2.1 (1.6-2.6) mg/dL Total Bilirubin 0.7 (0.0-1.0) mg/dL AST 12 (5-31) U/L ALT 6 (0-31) U/L Alkaline Phosphatase 96 (39-117) U/L Troponin I High Sens (<3.5-17.0) ng/L B-Natriuretic Peptide (<100) pg/mL Total Protein 6.1 L (6.5-8.0) g/dL Albumin 3.8 (3.5-5.0) g/dL Lipase 26 (8-78) U/L COVID-19 (THEO) (Negative) COVID-19 Clin Com Influenza Type A (TEZ) (Negative) Influenza Type B (TEZ) (Negative) Influenza A & B Note 05/09/22 05/09/22 05/09/22 Range/Units 15:40 15:40 15:40 WBC (4.8-10.8) X10*3/uL RBC (4.20-5.50) X10*6/uL Hgb (12.0-16.0) g/dl Hct (37.0-47.0) % MCV (80.0-98.0) fL MCH (27.0-33.0) pg MCHC (31.0-35.0) g/dl RDW (11.0-16.0) % Plt Count (160-400) X10*3/uL MPV (9.4-12.3) fL Immature Gran % (Auto) (0.0-0.4) % Neut % (Auto) (45-73) % Lymph % (Auto) (20-40) % Estill % (Auto) (2-11) % Eos % (Auto) (0-4) % Baso % (Auto) (0-2) % Lymph # (Auto) (1.2-4.9) X10*3/uL Estill # (Auto) (0.1-1.2) X10*3/uL Eos # (Auto) (0.0-0.4) X10*3/uL Baso # (Auto) (0.0-0.2) X10*3/uL Abs Immat Gran (auto) (0.00-0.03) X10*3/uL Absolute Neuts (auto) (2.0-8.3) x10*3/uL Absolute Nucleated RBC (0.0-0.012) X10*3/uL Nucleated RBC % (auto) (0.0-0.2) /100WBC PT (10.0-13.1) SEC INR (0.9-1.1) Sodium (135-145) mmol/L Potassium (3.3-5.1) mmol/L Chloride (96-108) mmol/L Carbon Dioxide (22-29) mmol/L Anion Gap (12-20) BUN (9-16) mg/dL Creatinine (0.5-1.4) mg/dL Estim Creat Clear Calc Estimated GFR Random Glucose (60-115) mg/dL Calcium (8.4-10.2) mg/dL Magnesium (1.6-2.6) mg/dL Total Bilirubin (0.0-1.0) mg/dL AST (5-31) U/L ALT (0-31) U/L Alkaline Phosphatase (39-117) U/L Troponin I High Sens 5.3 (<3.5-17.0) ng/L B-Natriuretic Peptide 52 (<100) pg/mL Total Protein (6.5-8.0) g/dL Albumin (3.5-5.0) g/dL Lipase (8-78) U/L COVID-19 (THEO) (Negative) COVID-19 Clin Com Influenza Type A (TEZ) Negative (Negative) Influenza Type B (TEZ) Negative (Negative) Influenza A & B Note See Note 05/09/22 05/09/22 Range/Units 15:40 19:10 WBC (4.8-10.8) X10*3/uL RBC (4.20-5.50) X10*6/uL Hgb (12.0-16.0) g/dl Hct (37.0-47.0) % MCV (80.0-98.0) fL MCH (27.0-33.0) pg MCHC (31.0-35.0) g/dl RDW (11.0-16.0) % Plt Count (160-400) X10*3/uL MPV (9.4-12.3) fL Immature Gran % (Auto) (0.0-0.4) % Neut % (Auto) (45-73) % Lymph % (Auto) (20-40) % Estill % (Auto) (2-11) % Eos % (Auto) (0-4) % Baso % (Auto) (0-2) % Lymph # (Auto) (1.2-4.9) X10*3/uL Estill # (Auto) (0.1-1.2) X10*3/uL Eos # (Auto) (0.0-0.4) X10*3/uL Baso # (Auto) (0.0-0.2) X10*3/uL Abs Immat Gran (auto) (0.00-0.03) X10*3/uL Absolute Neuts (auto) (2.0-8.3) x10*3/uL Absolute Nucleated RBC (0.0-0.012) X10*3/uL Nucleated RBC % (auto) (0.0-0.2) /100WBC PT (10.0-13.1) SEC INR (0.9-1.1) Sodium (135-145) mmol/L Potassium (3.3-5.1) mmol/L Chloride (96-108) mmol/L Carbon Dioxide (22-29) mmol/L Anion Gap (12-20) BUN (9-16) mg/dL Creatinine (0.5-1.4) mg/dL Estim Creat Clear Calc Estimated GFR Random Glucose (60-115) mg/dL Calcium (8.4-10.2) mg/dL Magnesium (1.6-2.6) mg/dL Total Bilirubin (0.0-1.0) mg/dL AST (5-31) U/L ALT (0-31) U/L Alkaline Phosphatase (39-117) U/L Troponin I High Sens 8.0 D (<3.5-17.0) ng/L B-Natriuretic Peptide (<100) pg/mL Total Protein (6.5-8.0) g/dL Albumin (3.5-5.0) g/dL Lipase (8-78) U/L COVID-19 (THEO) Negative (Negative) COVID-19 Clin Com See Note Influenza Type A (TEZ) (Negative) Influenza Type B (TEZ) (Negative) Influenza A & B Note <SHON Sherwood - Last Filed: 05/09/22 20:05> Independent Interpretation I performed an independent interpretation of an: EKG and Plain X-Ray ( I have personally interpreted chest x-ray and agree with radiologist impression) <Juana Phan CNP - Last Filed: 05/09/22 18:05> Interpretation: EKG Rate: 63 Rhythm:? sinus rhythm with first-degree AV block, bifascicular block unchanged when compared to prior Normal P waves.? prolonged LESLY.?? ST T wave :?? no ST elevation, no ST depression qTC: 497 prior studies:? January 2022 The study has been interpreted contemporaneously by me. <Juana Phan CNP - Last Filed: 05/09/22 18:05> Radiology Impression Discussion of test interpretation with radiology: I have reviewed the radiologist's reading. <Juana Phan CNP - Last Filed: 05/09/22 18:05> Radiologist Impression: XR/XR chest 2V IMPRESSION: Central vasculature engorgement with mild diffuse interstitial prominence raising the possibility of pulmonary edema in the appropriate clinical context. No focal airspace opacity. Clear pleural spaces. <Juana Phan CNP - Last Filed: 05/09/22 18:05> Critical Care Time Critical Care Time Critical Care Time: No <SHON Sherwood - Last Filed: 05/09/22 20:05> Discharge Plan Discharge Clinical Impression: Chest pain, Pedal edema, Congestive heart failure <Juana Phan CNP - Last Filed: 05/09/22 18:05> Patient Disposition: Home, Self-Care <Juana Phan CNP - Last Filed: 05/09/22 18:05> Instructions: Chest Pain (DC), Heart Failure (ED), Leg Edema (ED), Edema (ED) <Juana Phan CNP - Last Filed: 05/09/22 18:05> Additional Instructions: Take your medications as prescribed. If you were prescribed antibiotics today, it is important that you take your medication to their entirety, do not skip any doses, do not finish them early. Follow-up with your primary care provider this week. Return to the emergency department with new or worsening symptoms. Such as fevers, chills, chest pain, shortness of breath, nausea, vomiting, dizziness, headache, vision changes, lethargy In case of emergency call 911 <Juana Pahn CNP - Last Filed: 05/09/22 18:05> Prescriptions: No Action fluticasone propion-salmeterol [Advair Diskus] 250-50 mcg/dose blister with device 1 ea PO BID Qty: 60 3RF budesonide 0.5 mg/2 mL suspension for nebulization 0.5 mg inhalation BID 30 Days Qty: 120 0RF atorvastatin 10 mg tablet 1 tab PO BEDTIME furosemide 40 mg tablet 1 tab PO DAILY carvedilol 6.25 mg tablet 1 tab PO BID cetirizine 10 mg tablet 1 tab PO DAILY magnesium oxide 400 mg (241.3 mg magnesium) tablet 1 tab PO DAILY levothyroxine 50 mcg tablet 1 tab PO DAILY ferrous sulfate 325 mg (65 mg iron) tablet 1 tab PO DAILY montelukast 10 mg tablet 1 tab PO BEDTIME ketoconazole 2 % cream 1 appl topical BID ciclopirox 0.77 % cream 1 appl topical BID pregabalin 225 mg capsule 1 cap PO BID losartan 25 mg tablet 25 mg PO DAILY dexlansoprazole [Dexilant] 60 mg capsule,biphase delayed releas 60 mg PO DAILY <Juana Phan CNP - Last Filed: 05/09/22 18:05> Referrals: Glory Al MD [Primary Care Provider] - 2 days <Juana Phan CNP - Last Filed: 05/09/22 18:05> Stand Alone Forms: Work/School Release <Juana Phan CNP - Last Filed: 05/09/22 18:05>
--- NOTE | 2022-05-09 14:57 | ECG_ITS ---
Test Reason : CP / SOB Blood Pressure : / mmHG Vent. Rate : 063 BPM Atrial Rate : 063 BPM P-R Int : 210 ms QRS Dur : 144 ms QT Int : 486 ms P-R-T Axes : 088 -60 087 degrees QTc Int : 497 ms Sinus rhythm with 1st degree A-V block Right bundle branch block Left anterior fascicular block Bifascicular block T wave abnormality, consider lateral ischemia Abnormal ECG When compared with ECG of 27-JAN-2022 03:50, No significant change was found Referred By: Juana Phan Electronically Signed By:Jem Viera
[2022-05-09 15:43] VITALS: RESP 18
[2022-05-09 15:45] LABS: MANUAL DIFF FLAG NO
[2022-05-09 15:46] LABS: Basophils Percent Auto 0.3 % (0-2); Eosinophils Absolute Auto 0.2 X10*3/uL (0.0-0.4); Eosinophils Percent Auto 3.5 % (0-4); Hematocrit 32.3 % (37.0-47.0); Hemoglobin 10.6 g/dl (12.0-16.0); Imm Gran Abs Auto 0.01 X10*3/uL (0.00-0.03); Imm Gran Pct Auto 0.2 % (0.0-0.4); Lymphocytes Absolute Auto 1.3 X10*3/uL (1.2-4.9); Lymphocytes Percent Auto 20.5 % (20-40); Mean Corpuscular HGB Conc 32.8 g/dl (31.0-35.0); Mean Corpuscular Hemoglobin 28.8 pg (27.0-33.0); Mean Corpuscular Volume 87.8 fL (80.0-98.0); Mean Platelet Volume 10.7 fL (9.4-12.3); Monocytes Absolute Auto 0.6 X10*3/uL (0.1-1.2); Monocytes Percent Auto 8.4 % (2-11); Neutrophils Absolute Auto 4.4 x10*3/uL (2.0-8.3); Neutrophils Percent Auto 67.1 % (45-73); Platelet Count 276 X10*3/uL (160-400); Red Blood Count 3.68 X10*6/uL (4.20-5.50); Red Cell Distribution Width 13.9 % (11.0-16.0); White Blood Count 6.5 X10*3/uL (4.8-10.8)
[2022-05-09 15:53] LABS: INTERNATIONAL NORM RATIO 1.1 (0.9-1.1); Prothrombin Time 12.5 SEC (10.0-13.1)
[2022-05-09 16:00] VITALS: PULSE 64; RESP 18
[2022-05-09 16:07] LABS: Alanine Aminotransferase 6 U/L (0-31); Albumin Level 3.8 g/dL (3.5-5.0); Alkaline Phosphatase 96 U/L (39-117); Anion Gap 11 (12-20); Aspartate Amino Transferase 12 U/L (5-31); Bilirubin Total 0.7 mg/dL (0.0-1.0); Blood Urea Nitrogen 29 mg/dL (9-16); Calcium 8.5 mg/dL (8.4-10.2); Carbon Dioxide 34 mmol/L (22-29); Chloride 102 mmol/L (96-108); Creatinine Clr Calc Pharmacy 64.8; Estimated Glomerular Filt Rate 44; Glucose Random 100 mg/dL (60-115); Lipase 26 U/L (8-78); Magnesium 2.1 mg/dL (1.6-2.6); Potassium 4.4 mmol/L (3.3-5.1); Sodium 143 mmol/L (135-145); Total Protein 6.1 g/dL (6.5-8.0)
[2022-05-09 16:12] LABS: B Type Natriuretic Peptide 52 pg/mL (<100)
[2022-05-09 16:15] LABS: Troponin-I High Sensitivity 5.3 ng/L (<3.5-17.0)
[2022-05-09 16:17] LABS: IDNOW Serial# 16C4AD1C; IDNOW Serial# BCCEAD1C; Influenza A Negative (Negative); Influenza B2 Negative (Negative)
[2022-05-09 16:18] LABS: COVID-19 Test Negative (Negative)
--- NOTE | 2022-05-09 20:16 | PC.NURSE ---
Pt is ready to be discharged and requests for advanced manufacturing vice president, Benoit, be contacted for transportation. Called Enrique who reports will be here in one hour. Pt aware.
== END 2022-05-09 20:37 | disposition home or self-care (01) ==
PROVIDERS: Nurse Practitioner Family; Emergency Provider Student in an Organized Health Care Education/Training Program; PCP Internal Medicine
DX: R07.9 Chest pain, unspecified (principal); R60.0 Localized edema; I11.0 Hypertensive heart disease with heart failure; I50.9 Heart failure, unspecified; R06.02 Shortness of breath; Z20.822 Contact with and (suspected) exposure to COVID-19; E78.00 Pure hypercholesterolemia, unspecified; D64.9 Anemia, unspecified; J44.9 Chronic obstructive pulmonary disease, unspecified; E66.01 Morbid (severe) obesity due to excess calories; Z68.43 Body mass index [BMI] 50.0-59.9, adult; Z90.710 Acquired absence of both cervix and uterus; Z90.49 Acquired absence of other specified parts of digestive tract; Z99.81 Dependence on supplemental oxygen; Z79.02 Long term (current) use of antithrombotics/antiplatelets; Z79.899 Other long term (current) drug therapy
CPT/HCPCS: 36415; 71046; 80053; 83690; 83735; 83880; 84484; 85025; 85610; 87502; 87635; 93005; 99283; 99284

== ENCOUNTER 2022-05-15 07:41 | Emergency (ER) | payer MEDICARE, MEDICAID, SELFPAY ==
--- NOTE | 2022-05-15 07:57 | ED.GENADULT ---
HPI - General Adult General Stated complaint: BLOOD IN STOOL Time Seen by Provider: 05/15/22 07:52 Source: patient Mode of arrival: EMS Limitations: no limitations History of Present Illness HPI narrative: Patient lives in an apartment, wears a diaper for urinary and fecal incontinence. This morning she noticed blood in her diaper that she thinks is from a hip wound. Onset (ago): hour(s) Severity: mild Associated symptoms: denies other symptoms Related Data Home Medications Medication Instructions Recorded Confirmed carvedilol 6.25 mg tablet 1 tab PO BID 03/13/21 06/07/21 cetirizine 10 mg tablet 1 tab PO DAILY 03/13/21 06/07/21 ciclopirox 0.77 % topical cream 1 appl topical BID 03/13/21 06/07/21 ferrous sulfate 325 mg (65 mg 1 tab PO DAILY 03/13/21 06/07/21 iron) tablet furosemide 40 mg tablet 1 tab PO DAILY 03/13/21 06/07/21 ketoconazole 2 % topical cream 1 appl topical BID 03/13/21 06/07/21 levothyroxine 50 mcg tablet 1 tab PO DAILY 03/13/21 06/07/21 magnesium oxide 400 mg (241.3 mg 1 tab PO DAILY 03/13/21 06/07/21 magnesium) tablet montelukast 10 mg tablet 1 tab PO BEDTIME 03/13/21 06/07/21 pregabalin 225 mg capsule 1 cap PO BID 03/13/21 06/07/21 atorvastatin 10 mg tablet 1 tab PO BEDTIME 03/14/21 06/07/21 dexlansoprazole 60 mg 60 mg PO DAILY 06/07/21 06/07/21 capsule,biphase delayed release (Dexilant) losartan 25 mg tablet 25 mg PO DAILY 06/07/21 06/07/21 Previous Rx's Medication Instructions Recorded Advair Diskus 250 mcg-50 mcg/dose 1 ea PO BID #60 ea 12/05/21 powder for inhalation (fluticasone propion-salmeterol) budesonide 0.5 mg/2 mL suspension 0.5 mg (2 mL) inhalation BID copd 03/16/22 for nebulization 30 days #120 mL Allergies Allergy/AdvReac Type Severity Reaction Status Date / Time celecoxib [From CELEBREX] Allergy Unknown RASH Verified 01/27/22 02:46 Latex, Natural Rubber Allergy Unknown Rash Verified 01/27/22 02:46 ibuprofen [IBUPROFEN] AdvReac Intermediate RASH Verified 01/27/22 02:46 Review of Systems Review of Systems: Yes all other systems are reviewed and are negative Integumentary/Breasts: Comments: bleeding hip PMFSH Past Medical History Medical History Asthma Diarrhea GERD (gastroesophageal reflux disease) Hypercholesteremia Hypertension Interstitial lung disease Neuropathy Respiratory failure Seasonal allergies Thyroid activity decreased Surgical History H/O: hysterectomy History of cholecystectomy Social History Social History Household Members: Spouse 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 Housing: Apartment Housing Other:: [place] Do you presently have visiting nurse or other home services: No Unable to assess alcohol history related to: Unable to respond and Unknown Alcohol intake: unknown Patient Tobacco Use Status: Never used Tobacco Advance Directives: Yes Advance Directives on File: No service: No Current occupational status: retired Physical Exam ED Const Other: morbidly obese, awake and alert Orientation/consciousness: oriented to person and patient oriented x3 Limitations: no limitations HENMT Head: Yes normal to inspection Ears: external ears normal General nose exam: Normal external nose present Mouth: Normal oral and palatal mucosa present and oropharynx normal Throat: Yes posterior oropharynx normal Eyes General: appearance normal, both eyes and all related structures Neck Neck: Yes normal visual inspection Chest Chest palpation & inspection: normal inspection of the chest Resp Auscultation: clear to auscultation bilaterally Cardio Jugular venous distension: no JVD Rate: regular rate Rhythm: regular rhythm Heart sounds: S1 normal heart sound present and S2 normal heart sound present GI Inspection: Yes normal to inspection Palpation (GI): Soft to palpation, nontender and No hepatosplenomegaly present Auscultation: normal bowel sounds General: Yes no CVA tenderness Back/Spine/Pelvis Back: no CVA tenderness Skin Other: right posterior thigh abrasion Neuro General: oriented to person and patient oriented x3 Cranial nerves: Yes CN's II-XII intact bilaterally Motor exam (neuro): 5/5 motor strength present throughout Extrem General: Yes normal to inspection Psych Appearance: grossly normal Course Reevaluation(s) Reevaluation #1: patient with skin abrasion, will treat with bacitracin and dc home Time: 08:19 Medical Decision Making Differential Diagnosis Differential Diagnoses: The differential diagnosis associated with the presentation includes (GI bleed, hematuria, skin abrasion, abscess, decubedi) skin abrasion Tests considered The following testing was considered but not selected: cbc, UA Chronic Conditions Patient?s care impacted by: Other (obesity) Discharge Plan Discharge Clinical Impression: Abrasion of skin Patient Disposition: Home, Self-Care Additional Instructions: clean and dress once a day with bacitracin Prescriptions: No Action fluticasone propion-salmeterol [Advair Diskus] 250-50 mcg/dose blister with device 1 ea PO BID Qty: 60 3RF budesonide 0.5 mg/2 mL suspension for nebulization 0.5 mg inhalation BID 30 Days Qty: 120 0RF atorvastatin 10 mg tablet 1 tab PO BEDTIME furosemide 40 mg tablet 1 tab PO DAILY carvedilol 6.25 mg tablet 1 tab PO BID cetirizine 10 mg tablet 1 tab PO DAILY magnesium oxide 400 mg (241.3 mg magnesium) tablet 1 tab PO DAILY levothyroxine 50 mcg tablet 1 tab PO DAILY ferrous sulfate 325 mg (65 mg iron) tablet 1 tab PO DAILY montelukast 10 mg tablet 1 tab PO BEDTIME ketoconazole 2 % cream 1 appl topical BID ciclopirox 0.77 % cream 1 appl topical BID pregabalin 225 mg capsule 1 cap PO BID losartan 25 mg tablet 25 mg PO DAILY dexlansoprazole [Dexilant] 60 mg capsule,biphase delayed releas 60 mg PO DAILY Referrals: Glory Al MD [Primary Care Provider] - 1 week
[2022-05-15 08:12] VITALS: BP 128/72; BP 143/56; PULSE 61; PULSE 63; RESP 18; TEMP 36.7; O2SAT 100; O2SAT 97; BMI 53.2
[2022-05-15 10:39] VITALS: BP 124/66; PULSE 61; RESP 16; O2SAT 100
== END 2022-05-15 10:55 | disposition home or self-care (01) ==
PROVIDERS: Emergency Provider Emergency Medicine; PCP Internal Medicine
DX: S70.311A Abrasion, right thigh, initial encounter (principal); X58.XXXA Exposure to other specified factors, initial encounter; I10 Essential (primary) hypertension; E78.00 Pure hypercholesterolemia, unspecified; Y93.9 Activity, unspecified; Y92.9 Unspecified place or not applicable; Y99.9 Unspecified external cause status; Z79.02 Long term (current) use of antithrombotics/antiplatelets; Z79.899 Other long term (current) drug therapy
CPT/HCPCS: 99283

== ENCOUNTER → 2022-06-19 14:24 | Outpatient (BNVA) | payer MEDICARE, MEDICAID, SELFPAY | PROVIDERS: PCP Internal Medicine; Visit Provider Internal Medicine | DX: J96.90 Respiratory failure, unspecified, unspecified whether with hypoxia or hypercapnia (principal); J84.9 Interstitial pulmonary disease, unspecified; E66.01 Morbid (severe) obesity due to excess calories; E66.2 Morbid (severe) obesity with alveolar hypoventilation; G47.33 Obstructive sleep apnea (adult) (pediatric); Z68.43 Body mass index [BMI] 50.0-59.9, adult; Z99.81 Dependence on supplemental oxygen | CPT/HCPCS: 99212 ==

== ENCOUNTER 2022-08-17 13:21 | Outpatient (RCR) | payer MEDICARE, MEDICAID, SELFPAY | END 2022-08-18 13:21 | disposition home or self-care (01) | LOC: HO.WCC 13:21 | PROVIDERS: PCP Internal Medicine; Visit Provider Surgery | DX: Z09 Encounter for follow-up examination after completed treatment for conditions other than malignant neoplasm (principal); I11.0 Hypertensive heart disease with heart failure; I50.9 Heart failure, unspecified; J44.9 Chronic obstructive pulmonary disease, unspecified; G62.9 Polyneuropathy, unspecified; Z79.899 Other long term (current) drug therapy; Z87.2 Personal history of diseases of the skin and subcutaneous tissue; Z99.81 Dependence on supplemental oxygen | CPT/HCPCS: 99212 ==

== ENCOUNTER → 2022-10-02 14:08 | Outpatient (BNVA) | payer MEDICARE, MEDICAID, SELFPAY | PROVIDERS: PCP Internal Medicine; Visit Provider Internal Medicine | DX: J96.90 Respiratory failure, unspecified, unspecified whether with hypoxia or hypercapnia (principal); J84.9 Interstitial pulmonary disease, unspecified; J44.9 Chronic obstructive pulmonary disease, unspecified; E66.01 Morbid (severe) obesity due to excess calories; G47.33 Obstructive sleep apnea (adult) (pediatric); Z74.09 Other reduced mobility; Z99.81 Dependence on supplemental oxygen | CPT/HCPCS: 99212 ==

== ENCOUNTER → 2022-10-31 12:48 | Outpatient (BNVA) | payer MEDICARE, MEDICAID, SELFPAY | PROVIDERS: PCP Internal Medicine; Visit Provider Physician Assistant Surgical ==

== ENCOUNTER 2022-11-21 00:14 | Emergency (ER) | payer MEDICARE, MEDICAID, SELFPAY ==
[2022-11-21] VITALS (8 sets, daily range): BP systolic 99–117; BP diastolic 30–51; PULSE 56–63; RESP 12–20; TEMP 36.3–36.8; O2SAT 93–100; BMI 54.9
--- NOTE | 2022-11-21 | ECG_ITS ---
Test Reason : SOB Blood Pressure : / mmHG Vent. Rate : 063 BPM Atrial Rate : 063 BPM P-R Int : 224 ms QRS Dur : 152 ms QT Int : 514 ms P-R-T Axes : 059 -53 083 degrees QTc Int : 525 ms Sinus rhythm with 1st degree A-V block Right bundle branch block Left anterior fascicular block Bifascicular block Septal infarct (cited on or before 21-NOV-2022) Possible Lateral infarct , age undetermined Abnormal ECG When compared with ECG of 09-MAY-2022 15:28, Serial changes of Septal infarct Present Referred By: Generic ED Physician Electronically Signed By:URSULA FLORES
--- NOTE | ~2022-11-21 | XR_ITS ---
EXAMINATION: XR CHEST CLINICAL INFORMATION: Short of breath COMPARISON: 05/09/2022 TECHNIQUE: Frontal view of the chest was obtained. FINDINGS: The lungs are well expanded. There is no focal consolidation, edema, or effusion. Mild bronchial wall thickening. No pneumothorax. The cardiomediastinal silhouette is within normal limits. No acute osseous abnormality. XR/XR chest 1V IMPRESSION: No dense consolidation. Bronchial wall thickening can be seen with a small airways process such as asthma or atypical/viral infection.
[2022-11-21 01:06] LABS: MANUAL DIFF FLAG NO
[2022-11-21 01:11] LABS: Basophils Percent Auto 0.5 % (0-2); Eosinophils Absolute Auto 0.2 X10*3/uL (0.0-0.4); Eosinophils Percent Auto 2.6 % (0-4); Hematocrit 32.8 % (37.0-47.0); Hemoglobin 10.6 g/dl (12.0-16.0); Imm Gran Abs Auto 0.03 X10*3/uL (0.00-0.03); Imm Gran Pct Auto 0.4 % (0.0-0.4); Lymphocytes Absolute Auto 2.2 X10*3/uL (1.2-4.9); Lymphocytes Percent Auto 25.7 % (20-40); Mean Corpuscular HGB Conc 32.3 g/dl (31.0-35.0); Mean Corpuscular Hemoglobin 28.5 pg (27.0-33.0); Mean Corpuscular Volume 88.2 fL (80.0-98.0); Mean Platelet Volume 10.6 fL (9.4-12.3); Monocytes Absolute Auto 0.7 X10*3/uL (0.1-1.2); Neutrophils Absolute Auto 5.3 x10*3/uL (2.0-8.3); Neutrophils Percent Auto 62.8 % (45-73); Platelet Count 232 X10*3/uL (160-400); Red Blood Count 3.72 X10*6/uL (4.20-5.50); Red Cell Distribution Width 13.7 % (11.0-16.0); White Blood Count 8.4 X10*3/uL (4.8-10.8)
--- NOTE | 2022-11-21 01:12 | ED.EXTPRO ---
HPI - Extremity Problem General Chief complaint: Extremity Problem Stated complaint: Leg Edema Time Seen by Provider: 11/21/22 00:44 Source: patient Mode of arrival: EMS Limitations: no limitations History of Present Illness HPI Narrative: Patient is 72 years old with history of asthma, hypertension,ILD, COPD, MISSY on chronic 3 L oxygen comes in for increased leg swelling with increased pain when she ambulates last few days also complaining of shortness of breath pressure but saturating 100% on 3 L no fever no chills patient taking furosemide 80 mg daily for leg swelling and says that she is not urinating that much lately no chest pain or palpitation Related Data Home Medications Medication Instructions Recorded Confirmed carvedilol 6.25 mg tablet 1 tab PO BID 03/13/21 11/21/22 cetirizine 10 mg tablet 1 tab PO DAILY 03/13/21 11/21/22 ciclopirox 0.77 % topical cream 1 appl topical BID 03/13/21 11/21/22 ferrous sulfate 325 mg (65 mg 1 tab PO DAILY 03/13/21 11/21/22 iron) tablet ketoconazole 2 % topical cream 1 appl topical BID 03/13/21 11/21/22 levothyroxine 50 mcg tablet 1 tab PO DAILY 03/13/21 11/21/22 magnesium oxide 400 mg (241.3 mg 1 tab PO DAILY 03/13/21 11/21/22 magnesium) tablet montelukast 10 mg tablet 1 tab PO BEDTIME 03/13/21 11/21/22 pregabalin 225 mg capsule 1 cap PO BID 03/13/21 11/21/22 atorvastatin 10 mg tablet 1 tab PO BEDTIME 03/14/21 11/21/22 dexlansoprazole 60 mg 60 mg PO DAILY 06/07/21 11/21/22 capsule,biphase delayed release (Dexilant) losartan 25 mg tablet 25 mg PO DAILY 06/07/21 11/21/22 dicyclomine 10 mg capsule 10 mg PO TID 06/19/22 11/21/22 nystatin 100,000 unit/gram topical 1 appl topical BID-TID 06/19/22 11/21/22 powder (Nyamyc) furosemide 40 mg tablet 80 mg PO DAILY 10/02/22 11/21/22 Previous Rx's Medication Instructions Recorded Advair Diskus 250 mcg-50 mcg/dose 1 ea PO BID #60 ea 10/13/22 powder for inhalation (fluticasone propion-salmeterol) Allergies Allergy/AdvReac Type Severity Reaction Status Date / Time celecoxib [From CELEBREX] Allergy Unknown RASH Verified 10/31/22 14:48 Latex, Natural Rubber Allergy Unknown Rash Verified 10/31/22 14:48 ibuprofen [IBUPROFEN] AdvReac Intermediate RASH Verified 10/31/22 14:48 Review of Systems Review of Systems: Yes all other systems are reviewed and are negative [facility] Past Medical History Medical History Asthma Diarrhea GERD (gastroesophageal reflux disease) Hypercholesteremia Hypertension Interstitial lung disease Neuropathy Respiratory failure Seasonal allergies Thyroid activity decreased Surgical History H/O: hysterectomy History of cholecystectomy Hx of cataract surgery Family History Family History Mother Asthma Father No problems noted. 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 Housing: Apartment Housing Other:: [place] Do you presently have visiting nurse or other home services: No Unable to assess alcohol history related to: Unable to respond and Unknown Alcohol intake: never Patient Tobacco Use Status: Never used Tobacco Smoked in Last 30 Days: No Use of substances other than those prescribed or required for medical reasons: No Advance Directives: No Advance Directives Information Provided: Yes service: No Current occupational status: retired Physical Exam Vital Signs: Vital Signs: Last Vital Signs Temp 98.3 F 11/21/22 01:24 Pulse 63 11/21/22 03:47 Resp 16 11/21/22 06:22 BP 109/32 L 11/21/22 03:47 Pulse Ox 98 11/21/22 06:22 O2 Del Method Nasal Cannula 11/21/22 06:22 O2 Flow Rate 3 11/21/22 06:22 Oxygen Flow Rate 3 11/21/22 00:42 BMI result Body Mass Index 54.9 Appearance: Alert. Oriented X3. No acute distress. Obese Eyes: No pallor or icterus ENT: Pharynx normal. Oral Mucosa moist Neck: Normal inspection. Neck supple. CVS: Normal heart rate and rhythm. Pulses normal. Respiratory: No respiratory distress. Equal air entry bilateral, no wheezing/rales/rhonchi Abdomen: Soft and nontender. Bowel sounds are present, no mass palpable, no CVA tenderness Skin: Skin warm and dry. Normal skin color. Normal skin turgor. Extremities: Trace lower extremity edema. No calf tenderness Neuro: Oriented X 3. No motor deficit. No sensory deficit.No cerebellar signs , cranial nerves II-XII intact Medical Decision Making Medical Decision Making [facility] Narrative: Patient has stable labs unable to ambulate much because of obesity and chronic pain, stable labs patient requesting go to rehab will consult case management for rehab Differential Diagnosis Differential Diagnoses: The differential diagnosis associated with the presentation includes Dependent edema/CHF/chronic deconditioning Lab Data [facility] Lab Attestation statement: I reviewed the patient's lab results. 11/21/22 01:02 11/21/22 01:02 Labs: Lab Results 11/21/22 11/21/22 11/21/22 Range/Units 01:02 01:02 01:02 WBC 8.4 (4.8-10.8) X10*3/uL RBC 3.72 L (4.20-5.50) X10*6/uL Hgb 10.6 L (12.0-16.0) g/dl Hct 32.8 L (37.0-47.0) % MCV 88.2 (80.0-98.0) fL MCH 28.5 (27.0-33.0) pg MCHC 32.3 (31.0-35.0) g/dl RDW 13.7 (11.0-16.0) % Plt Count 232 (160-400) X10*3/uL MPV 10.6 (9.4-12.3) fL Immature Gran % (Auto) 0.4 (0.0-0.4) % Neut % (Auto) 62.8 (45-73) % Lymph % (Auto) 25.7 (20-40) % Mcleod % (Auto) 8.0 (2-11) % Eos % (Auto) 2.6 (0-4) % Baso % (Auto) 0.5 (0-2) % Lymph # (Auto) 2.2 (1.2-4.9) X10*3/uL Mcleod # (Auto) 0.7 (0.1-1.2) X10*3/uL Eos # (Auto) 0.2 (0.0-0.4) X10*3/uL Baso # (Auto) 0.0 (0.0-0.2) X10*3/uL Abs Immat Gran (auto) 0.03 (0.00-0.03) X10*3/uL Absolute Neuts (auto) 5.3 (2.0-8.3) x10*3/uL Absolute Nucleated RBC 0.000 (0.0-0.012) X10*3/uL Nucleated RBC % (auto) 0.0 (0.0-0.2) /100WBC Sodium 141 (135-145) mmol/L Potassium 4.5 (3.3-5.1) mmol/L Chloride 100 (96-108) mmol/L Carbon Dioxide 34 H (22-29) mmol/L Anion Gap 12 (12-20) BUN 30 H (9-16) mg/dL Creatinine 1.36 (0.5-1.4) mg/dL Estim Creat Clear Calc 57.1 Estimated GFR 38 Random Glucose 106 (60-115) mg/dL Lactic Acid 0.8 (0.5-2.0) mmol/L Calcium 8.6 (8.4-10.2) mg/dL Total Bilirubin 0.6 (0.0-1.0) mg/dL AST 16 (5-31) U/L ALT 8 (0-31) U/L Alkaline Phosphatase 94 (39-117) U/L Troponin I High Sens (<3.5-17.0) ng/L B-Natriuretic Peptide (<100) pg/mL Total Protein 6.5 (6.5-8.0) g/dL Albumin 3.7 (3.5-5.0) g/dL Lipase 33 (8-78) U/L Urine Color Urine Appearance Urine pH (5.0-9.0) Ur Specific [place] (1.005-1.025) Urine Protein (Neg-Trace) mg/dL Urine Glucose (UA) (Negative) mg/dL Urine Ketones (Negative) mg/dL Urine Blood (Negative) Urine Nitrite (Negative) Ur Leukocyte Esterase (Negative) Urine RBC (0-2) /HPF Urine WBC (0-5) /HPF Ur Squamous Epith Cells (0-2) /HPF Urine Bacteria (None Seen) Hyaline Casts (0-2) /LPF 11/21/22 11/21/22 11/21/22 Range/Units 01:02 01:02 02:36 WBC (4.8-10.8) X10*3/uL RBC (4.20-5.50) X10*6/uL Hgb (12.0-16.0) g/dl Hct (37.0-47.0) % MCV (80.0-98.0) fL MCH (27.0-33.0) pg MCHC (31.0-35.0) g/dl RDW (11.0-16.0) % Plt Count (160-400) X10*3/uL MPV (9.4-12.3) fL Immature Gran % (Auto) (0.0-0.4) % Neut % (Auto) (45-73) % Lymph % (Auto) (20-40) % Mcleod % (Auto) (2-11) % Eos % (Auto) (0-4) % Baso % (Auto) (0-2) % Lymph # (Auto) (1.2-4.9) X10*3/uL Mcleod # (Auto) (0.1-1.2) X10*3/uL Eos # (Auto) (0.0-0.4) X10*3/uL Baso # (Auto) (0.0-0.2) X10*3/uL Abs Immat Gran (auto) (0.00-0.03) X10*3/uL Absolute Neuts (auto) (2.0-8.3) x10*3/uL Absolute Nucleated RBC (0.0-0.012) X10*3/uL Nucleated RBC % (auto) (0.0-0.2) /100WBC Sodium (135-145) mmol/L Potassium (3.3-5.1) mmol/L Chloride (96-108) mmol/L Carbon Dioxide (22-29) mmol/L Anion Gap (12-20) BUN (9-16) mg/dL Creatinine (0.5-1.4) mg/dL Estim Creat Clear Calc Estimated GFR Random Glucose (60-115) mg/dL Lactic Acid (0.5-2.0) mmol/L Calcium (8.4-10.2) mg/dL Total Bilirubin (0.0-1.0) mg/dL AST (5-31) U/L ALT (0-31) U/L Alkaline Phosphatase (39-117) U/L Troponin I High Sens 6.6 (<3.5-17.0) ng/L B-Natriuretic Peptide 66 (<100) pg/mL Total Protein (6.5-8.0) g/dL Albumin (3.5-5.0) g/dL Lipase (8-78) U/L Urine Color Yellow Urine Appearance Clear Urine pH 5.5 (5.0-9.0) Ur Specific [place] 1.015 (1.005-1.025) Urine Protein Negative (Neg-Trace) mg/dL Urine Glucose (UA) Negative (Negative) mg/dL Urine Ketones Negative (Negative) mg/dL Urine Blood Negative (Negative) Urine Nitrite Negative (Negative) Ur Leukocyte Esterase Moderate (2+) H (Negative) Urine RBC 0-2 (0-2) /HPF Urine WBC 21-50 H (0-5) /HPF Ur Squamous Epith Cells 3-5 (0-2) /HPF Urine Bacteria None Seen (None Seen) Hyaline Casts 3-5 (0-2) /LPF Discharge Plan Discharge Clinical Impression: Weakness, Morbid obesity Patient Disposition: Still a Patient Prescriptions: No Action fluticasone propion-salmeterol [Advair Diskus] 250-50 mcg/dose blister with device 1 ea PO BID Qty: 60 3RF atorvastatin 10 mg tablet 1 tab PO BEDTIME carvedilol 6.25 mg tablet 1 tab PO BID cetirizine 10 mg tablet 1 tab PO DAILY magnesium oxide 400 mg (241.3 mg magnesium) tablet 1 tab PO DAILY levothyroxine 50 mcg tablet 1 tab PO DAILY ferrous sulfate 325 mg (65 mg iron) tablet 1 tab PO DAILY montelukast 10 mg tablet 1 tab PO BEDTIME ketoconazole 2 % cream 1 appl topical BID ciclopirox 0.77 % cream 1 appl topical BID pregabalin 225 mg capsule 1 cap PO BID furosemide 40 mg tablet 80 mg PO DAILY losartan 25 mg tablet 25 mg PO DAILY dexlansoprazole [Dexilant] 60 mg capsule,biphase delayed releas 60 mg PO DAILY nystatin [Nyamyc] 100,000 unit/gram powder 1 appl topical BID-TID dicyclomine 10 mg capsule 10 mg PO TID
[2022-11-21 01:20] LABS: Lactic Acid 0.8 mmol/L (0.5-2.0)
[2022-11-21 01:25] LABS: Alanine Aminotransferase 8 U/L (0-31); Albumin Level 3.7 g/dL (3.5-5.0); Alkaline Phosphatase 94 U/L (39-117); Anion Gap 12 (12-20); Aspartate Amino Transferase 16 U/L (5-31); Bilirubin Total 0.6 mg/dL (0.0-1.0); Blood Urea Nitrogen 30 mg/dL (9-16); Calcium 8.6 mg/dL (8.4-10.2); Carbon Dioxide 34 mmol/L (22-29); Chloride 100 mmol/L (96-108); Creatinine Clr Calc Pharmacy 57.1; Estimated Glomerular Filt Rate 38; Glucose Random 106 mg/dL (60-115); Lipase 33 U/L (8-78); Potassium 4.5 mmol/L (3.3-5.1); Sodium 141 mmol/L (135-145); Total Protein 6.5 g/dL (6.5-8.0)
[2022-11-21 01:30] LABS: Troponin-I High Sensitivity 6.6 ng/L (<3.5-17.0)
[2022-11-21 01:50] LABS: B Type Natriuretic Peptide 66 pg/mL (<100)
--- NOTE | 2022-11-21 02:45 | PC.NURSE ---
Pt ambulated with a walker and 2 staff. Pt stated she feels a bit shaky and that her feet hurt a lot when she walks. Pt would like to see case management, aware. Pt is cleared otherwise. Pt was able to stand and pivot to the commode, urine sample is collected and sent to lab. Pt is resting quietly in bed at this time.
[2022-11-21 02:58] LABS: Appearance Urine Clear; Color Urine Yellow; Glucose Urine UA Negative (Negative); Leukocyte Esterase Urine Moderate (2+) (Negative); Nitrite Urine Negative (Negative); PH 5.5 (5.0-9.0); Specific Gravity - Urine 1.015 (1.005-1.025); UMIC TRIGGER UA YES; Urine Blood Negative (Negative); Urine Ketones Negative (Negative); Urine Protein Negative (Neg-Trace)
[2022-11-21 03:00] LABS: Bacteria Urine None Seen (None Seen); RBC Urine 0-2 /HPF (0-2); WBC Urine 21-50 /HPF (0-5)
--- NOTE | 2022-11-21 08:23 | PHA.MEDREC ---
Pharmacy Consult ? Medication Reconciliation Pharmacy has completed the medication reconciliation. Spoke to patient to confirm meds. Patient has med list in her purse.
[2022-11-21 08:39] LABS: IDNOW Serial# 08D9AD1C; IDNOW Serial# BCCEAD1C; Influenza A Negative (Negative); Influenza B2 Negative (Negative)
--- NOTE | 2022-11-21 08:39 | PC.NURSE ---
breakfast provided for patient. physical therapy in to meet with patient this morning, recommending home services. patient is alert and oriented and agreeable with plan of care. updated on patient's status. call alfaro within reach.
[2022-11-21 08:40] LABS: COVID-19 Test Negative (Negative)
[2022-11-21] MEDS: Furosemide 40 MG TABLET 80 MG PO (09:35)
[2022-11-21] MEDS: Losartan Potassium 25 MG TABLET PO (09:35)
[2022-11-21] MEDS: Levothyroxine Sodium 50 MCG TABLET PO (09:35)
[2022-11-21] MEDS: Ferrous Sulfate 324 MG TABLET.DR PO (09:35)
[2022-11-21] MEDS: carvediloL 6.25 MG TABLET PO (09:35)
[2022-11-21] MEDS: Loratadine 10 MG TABLET PO (09:35)
[2022-11-21] MEDS: Magnesium Oxide 400 MG TABLET PO (09:35)
--- NOTE | 2022-11-21 09:38 | PC.NURSE ---
pt a&ox3, vss, pt verbalizing 6/10 bilateral lower extremity pain. pt states that her legs still feel numb/have a tingling sensation. medication administered - crushed and mixed into pudding. call alfaro placed within reach. will continue to monitor.
--- NOTE | 2022-11-21 10:00 | MHC.CM.PN ---
EMR REVIEWED, CM MET W/PT WHO REPORTS SHE LIVES W/S.O./HCP EDWARD, PT USES A WALKER FOR AMBULATION AND HAS HOME O2 3L NC W/[place], P.T,[facility] HOME W/SERVICES AND PT PREFERS [facility] FOR [facility] W/[facility] FIRST CHOICE, PER PT HER PCP DR CRESPO W/[facility] WANTED HER TO HAVE A VISITING NURSE SO PT WILL HAVE BOTH SN AND HOME PT, PT WILL NEED BLS TRNASPORT VIA GAGE. CM WILL AIM FOR D/C BY 11:30AM, ED PROVIDER AWARE.
--- NOTE | 2022-11-21 11:10 | PC.NURSE ---
a&ox3, vss, sinus constantin on the radiation monitor, pt verbalizing discomfort in bilateral lower extremities. pt resting comfortably w/ lights dimmed. call alfaro placed within reach.
== END 2022-11-21 17:01 | disposition home or self-care (01) ==
PROVIDERS: Physician Assistant; Emergency Provider Internal Medicine
DX: N39.0 Urinary tract infection, site not specified (principal); R06.02 Shortness of breath; Z20.822 Contact with and (suspected) exposure to COVID-19; I10 Essential (primary) hypertension; J84.9 Interstitial pulmonary disease, unspecified; E78.00 Pure hypercholesterolemia, unspecified; E66.9 Obesity, unspecified; Z68.43 Body mass index [BMI] 50.0-59.9, adult; Z79.899 Other long term (current) drug therapy
CPT/HCPCS: 36415; 71045; 80053; 81001; 83605; 83690; 83880; 84484; 85025; 87502; 87635; 93005; 97162; 99285

== ENCOUNTER 2022-12-06 13:58 | Outpatient (AMB) | payer MEDICARE, MEDICAID, SELFPAY ==
--- NOTE | 2022-12-06 14:09 | A.OFFVIS_ITS ---
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 Allergies celecoxib [From CELEBREX] Allergy (Unknown, Verified 12/06/22 14:27) RASH Latex, Natural Rubber Allergy (Unknown, Verified 12/06/22 14:27) Rash ibuprofen [IBUPROFEN] Adverse Reaction (Intermediate, Verified 12/06/22 14:27) RASH HPI HPI Comments History of Present Illness Details The patient is a 72-year-old woman with an extensive past medical his tory including morbid obesity with a BMI of 54.9, obstructive sleep apnea requiring 3 L nasal cannula CPAP, history of COPD, chronic CHF with lower extremity edema, restrictive lung disease, HTN, recurrent aspiration, obesity related hypoventilation who is seen to discuss a lifelong urias with obesity and the above related comorbidities. The patient reports that she is interested in a gastric balloon. When we discussed the out of pocket expense/cost, she noted that she could not afford the balloon and was not interested in bariatric surgery. She notes she had previously been in the [facility] Bariatric program and dropped out. In reviewing the intake question years, the patient notes that she would like to lose weight, but does not feel that she is significantly limited by her obesity. She wakes at: bed at: Breakfast: Lunch: Dinner: After dinner: Other snacks: Liquids: Alcohol intake: nicotine: marijuana: drugs: caffeine: Exercise: Unable to due to lung disease & mobility issues KAREY: 0 ESS: 0 GERD: 0 QOL: 33 PFSH Medical History Asthma Diarrhea GERD (gastroesophageal reflux disease) Hypercholesteremia Hypertension Interstitial lung disease Neuropathy Respiratory failure Seasonal allergies Thyroid activity decreased Surgical History H/O: hysterectomy History of cholecystectomy Hx of cataract surgery Family History Mother Asthma Father No problems noted. 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 Housing: Apartment Housing Other:: [employer] Do you presently have visiting nurse or other home services: No Unable to assess alcohol history related to: Unable to respond and Unknown Alcohol intake: never Patient Tobacco Use Status: Never used Tobacco service: No Current occupational status: retired Review of Systems Const All systems reviewed & are unremarkable except as noted in HPI and below Reports as per HPI Physical Exam On exam, the patient is supine in a stretcher She is nontoxic She is edentulous She has no cervical masses or bruits Lungs are clear and equal anteriorly Heart is regular with no murmurs Abdomen is morbidly obese and soft with no peritoneal sign. A right upper quadrant/subcostal incision from an open cholecystectomy is free of apparent hernia Lower extremity edema is present bilateral Results Reviewed Results Reviewed: ER note from 11/21/22 is reviewed wbc 8.4, nml diff, Hb 10.6 Normochromic/normocytic indices, Plts 232k BUN 30, Cr 1.36 Albumin 3.7 CXR chronic but bronchial thickening consistent with asthma/COPD but no acute infiltrates or pneumothorax by report and review of images Assessment & Plan Assessment & Plan (1) Morbid obesity: Comment: THIS IS A CHRONIC PROBLEM, SHE IS TRYING TO LIMIT HER CALORIES INTAKE, CANNOT DO MUCH EXERCISE. NOT MUCH POTENTIAL FOR ANY SIGNIFICANT WEIGHT LOSS. Code(s): E66.01 - Morbid (severe) obesity due to excess calories (2) Obesity hypoventilation syndrome: Comment: PATIENT HAS CHRONIC SLEEP APNEA/HYPOVENTILATION SYNDROME. UNFORTUNATELY UNABLE TO USE THE CPAP OR BIPAP. ADVISED TO DO DEEP BREATHING EXERCISES 3 TIMES A DAY REGULARLY, HAS INCENTIVE SPIROMETER AT HOME . KEEP ON USING O2 2.5 L PER MINUTE AT REST AND 3 L/MT WHEN OUTDOORS. Code(s): E66.2 - Morbid (severe) obesity with alveolar hypoventilation (3) Obstructive sleep apnea: Comment: HAS CHRONIC OBSTRUCTIVE SLEEP APNEA AT LEAST FOR 15 YEARS. SHE IS JUST NOT ABLE TO USE THE CPAP. SO SHE IS JUST USING OXYGEN 2.5 L/MINUTE AT NIGHTTIME, WELL DURING THE DAYTIME. Code(s): G47.33 - Obstructive sleep apnea (adult) (pediatric) (4) Aspiration pneumonia: Comment: H Code(s): J69.0 - Pneumonitis due to inhalation of food and vomit Qualifiers: Aspiration pneumonia type: unspecified Laterality: bilateral Lung location: unspecified part of lung Qualified Code(s): J69.0 - Pneumonitis due to inhalation of food and vomit (5) Acute hypercapnic respiratory failure: Code(s): J96.02 - Acute respiratory failure with hypercapnia (6) Interstitial lung disease: Comment: SHE HAD ACUTE INTERSTITIAL LUNG DISEASE, FOLLOWING COVID INFECTION. LAST CHEST X-RAY IN NOVEMBER 2020, SHOWED THAT ALL INTERSTITIAL LUNG DISEASE HAD RESOLVED. She is a candidate for severe restrictive pulmonary disorder due to her morbid obesity. Advised to keep on doing deep breathing exercises. 3 to 4 times a day Code(s): J84.9 - Interstitial pulmonary disease, unspecified (7) Acute respiratory failure with hypoxia and hypercapnia: Code(s): J96.01 - Acute respiratory failure with hypoxia; J96.02 - Acute respiratory failure with hypercapnia (8) Asthma: Comment: IN ADDITION TO ALL HER ABOVE-NOTED PROBLEMS, SHE ALSO HAS BRONCHIAL ASTHMA/MILD RESTRICTIVE PULMONARY DISORDER. SHE IS ADVISED TO CONTINUE DOING DEEP BREATHING EXERCISES. CONTINUE TO USE MONTELUKAST 10 MG DAILY. CONTINUE TO USE ADVAIR 250-51 PUFF B.I.D. 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 (12) Diastolic dysfunction: Code(s): I51.89 - Other ill-defined heart diseases Plan The patient is interested in medical weight loss. With her comorbidities, medical management via her PCP is a reasonable option. She noted her aspiration pneumonia history which precludes this intervention. We discussed the cost of the balloon at $6000 and she noted that she could not afford it. She stated that she is not interested in bariatric surgery. The patient should be counseled on a high-protein diet if acceptable with her medical condition. Since she is edentulous, protein shakes could be considered. Unfortunately, her comorbidities limit her activity and consequently, her weight loss. The patient will follow up with her PCP and other providers for her chronic comorbidities. 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
[2022-12-06 14:25] VITALS: BP 131/60; PULSE 66; TEMP 36.4; O2SAT 100
== END 2022-12-06 15:03 | disposition home or self-care (01) ==
PROVIDERS: PCP Internal Medicine; Visit Provider Surgery
DX: E66.2 Morbid (severe) obesity with alveolar hypoventilation (principal); Z68.43 Body mass index [BMI] 50.0-59.9, adult
CPT/HCPCS: 99204

== ENCOUNTER → 2022-12-06 13:58 | Outpatient (BNVA) | payer MEDICARE, MEDICAID, SELFPAY | PROVIDERS: PCP Internal Medicine; Visit Provider Surgery | DX: E66.2 Morbid (severe) obesity with alveolar hypoventilation (principal); J96.01 Acute respiratory failure with hypoxia; J96.02 Acute respiratory failure with hypercapnia; J84.9 Interstitial pulmonary disease, unspecified; I11.9 Hypertensive heart disease without heart failure; J45.909 Unspecified asthma, uncomplicated; G47.33 Obstructive sleep apnea (adult) (pediatric) | CPT/HCPCS: 99202 ==

== ENCOUNTER 2022-12-19 22:52 | Emergency (ER) | payer MEDICARE, MEDICAID, SELFPAY ==
[2022-12-19 23:05] VITALS: PULSE 74; O2SAT 3
--- NOTE | 2022-12-19 23:14 | ED.ABDPAIN ---
HPI - Abdominal Pain General Chief Complaint: Abdominal Pain Stated Complaint: lower abd pain Time Seen by Provider: 12/19/22 23:06 Source: patient Mode of arrival: ambulatory Limitations: no limitations History of Present Illness HPI narrative: Patient comes to the emergency room complaining of bilateral lower quadrant pain. Patient states that she has been having some back pain and dysuria, no fever or chills. Patient denies chest pain or shortness of breath, no URI or UTI symptoms. Symptoms started approximately 6 hours ago. Related Data Home Medications Medication Instructions Recorded Confirmed carvedilol 6.25 mg tablet 1 tab PO BIDWM 03/13/21 11/21/22 cetirizine 10 mg tablet 1 tab PO DAILY 03/13/21 11/21/22 ferrous sulfate 325 mg (65 mg 1 tab PO DAILY 03/13/21 11/21/22 iron) tablet levothyroxine 50 mcg tablet 1 tab PO DAILY@0600 03/13/21 11/21/22 magnesium oxide 400 mg (241.3 mg 1 tab PO DAILY 03/13/21 11/21/22 magnesium) tablet montelukast 10 mg tablet 1 tab PO BEDTIME 03/13/21 11/21/22 pregabalin 225 mg capsule 1 cap PO BID 03/13/21 11/21/22 atorvastatin 10 mg tablet 1 tab PO BEDTIME 03/14/21 11/21/22 dexlansoprazole 60 mg 60 mg PO DAILY@0630 06/07/21 11/21/22 capsule,biphase delayed release (Dexilant) losartan 25 mg tablet 25 mg PO DAILY 06/07/21 11/21/22 furosemide 40 mg tablet 80 mg PO DAILY 10/02/22 11/21/22 Previous Rx's Medication Instructions Recorded Advair Diskus 250 mcg-50 mcg/dose 1 ea PO BID #60 ea 10/13/22 powder for inhalation (fluticasone propion-salmeterol) cefuroxime axetil 250 mg tablet 250 mg PO BID 7 days #14 tabs 11/21/22 cefuroxime axetil 500 mg tablet 500 mg PO BID #20 tabs 12/20/22 Allergies Allergy/AdvReac Type Severity Reaction Status Date / Time celecoxib [From CELEBREX] Allergy Unknown RASH Verified 12/06/22 14:27 Latex, Natural Rubber Allergy Unknown Rash Verified 12/06/22 14:27 ibuprofen [IBUPROFEN] AdvReac Intermediate RASH Verified 12/06/22 14:27 Review of Systems Review of Systems Constitutional : No Weight loss, No Fever, No Chills, No Night Sweats, No Fatigue, No Malaise ENT/Mouth : No Hearing loss, No Ear Pain, No Nasal Congestion, No Sinus Pain, No Hoarseness, No sore throat, No Rhinorrhea, No Swallowing Difficulty Eyes: No Eye Pain, No Swelling, No Redness, No Foreign Body, No Discharge, No Vision Changes Cardiovascular : No Chest Pain, No SOB, No Dyspnea on Exertion, No Orthopnea, No Edema, No Palpitations Respiratory : No Cough, No Sputum, No Wheezing, No Smoke Exposure, No Dyspnea Gastrointestinal : No Nausea, No Vomiting, No Diarrhea, No Constipation, complaining of bilateral lower quadrant pain, No Hematochezia, No Melena Genitourinary : Complaining of Dysuria, No Urinary Frequency, No Hematuria, No Urinary Incontinence, No Urgency, complaining of bilateral back pain/flank pain, No Urinary Flow Changes, No Hesitancy Musculoskeletal : No joint pain, No Myalgias, No Joint Swelling Skin : No Skin Lesions, No rash Neuro : No Weakness, No Numbness, No Paresthesias, No Loss of Consciousness, No Dizziness, No Headache Psych : No Anxiety/Panic, No Depression, No SI/HI/AH/VH, No Social Issues, Heme/Lymph: No Bruising, No Bleeding,No Lymphadenopathy Endocrine : No Polyuria, No Polydipsia, No Temperature Intolerance PMFSH Past Medical History Medical History Respiratory failure Interstitial lung disease Seasonal allergies Diarrhea Neuropathy Asthma Hypercholesteremia GERD (gastroesophageal reflux disease) Thyroid activity decreased Hypertension Surgical History Hx of cataract surgery H/O: hysterectomy History of cholecystectomy Family History Family History Mother Asthma Father No problems noted. 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 Housing: Apartment Housing Other:: [employer] Do you presently have visiting nurse or other home services: No Unable to assess alcohol history related to: Unable to respond and Unknown Alcohol intake: never Patient Tobacco Use Status: Never used Tobacco Smoked in Last 30 Days: No Use of substances other than those prescribed or required for medical reasons: No Advance Directives: No Advance Directives Information Provided: Yes service: No Current occupational status: retired Physical Exam ED Vital Signs: Vital Signs - 24 hr 12/19/22 23:20 12/20/22 00:13 Temperature 98.3 F Pulse Rate 74 71 Respiratory Rate 18 18 Blood Pressure 131/42 L 141/51 H Pulse Oximetry 100 100 Oxygen Delivery Method Nasal Cannula Nasal Cannula Oxygen Flow Rate 3 BMI result Body Mass Index 56.4 Const Other: Appearance: Alert. Oriented X3. No acute distress. Well-appearing Eyes: Pupils equal, round and reactive to light. ENT: Pharynx normal. Neck: Normal inspection. Neck supple. No lymph nodes noted. No crepitus CVS: Normal heart rate and rhythm. Pulses normal. Normal S1 and S2 Respiratory: No respiratory distress. Breath sounds normal. No Wheezing. No rales Abdomen: Soft does not have any significant pain on palpation in bilateral lower quadrants or suprapubic area. No flank pain. Skin: Skin warm and dry. Normal skin color. Normal skin turgor. Extremities: No lower extremity edema. No Lacerations. No Rash Neuro: Oriented X 3. No motor deficit. No sensory deficit. Moving all extremities. No slurred speech. CN 2 through 12 grossly intact Psych: calm, cooperative, normal affect Course Course Course Narrative: -physical exam was unremarkable, no abdominal pain or flank pain -all of patient's labs pending Medical Decision Making Medical Decision Making [facility] Narrative: -my interpretation of labs, white blood cell count 11.9, a fever chills, normal blood pressure, lactic acid normal -patient has a UTI, sepsis not suspected. Patient given IM ceftriaxone in the ED, patient will continue p.o. cefuroxime was home. Differential Diagnosis Differential Diagnoses: The differential diagnosis associated with the presentation includes (UTI, pyelonephritis, functional abdominal pain) Lab Data [facility] Lab Attestation statement: I reviewed the patient's lab results. 12/19/22 23:34 12/19/22 23:34 Labs: Lab Results 12/19/22 12/20/22 Range/Units 23:34 00:25 WBC 11.9 H (4.8-10.8) X10*3/uL RBC 3.91 L (4.20-5.50) X10*6/uL Hgb 11.4 L (12.0-16.0) g/dl Hct 34.6 L (37.0-47.0) % MCV 88.5 (80.0-98.0) fL MCH 29.2 (27.0-33.0) pg MCHC 32.9 (31.0-35.0) g/dl RDW 13.7 (11.0-16.0) % Plt Count 257 (160-400) X10*3/uL MPV 10.8 (9.4-12.3) fL Immature Gran % (Auto) 0.3 (0.0-0.4) % Neut % (Auto) 79.8 H (45-73) % Lymph % (Auto) 10.7 L (20-40) % [place] % (Auto) 7.6 (2-11) % Eos % (Auto) 1.3 (0-4) % Baso % (Auto) 0.3 (0-2) % Lymph # (Auto) 1.3 (1.2-4.9) X10*3/uL [place] # (Auto) 0.9 (0.1-1.2) X10*3/uL Eos # (Auto) 0.2 (0.0-0.4) X10*3/uL Baso # (Auto) 0.0 (0.0-0.2) X10*3/uL Abs Immat Gran (auto) 0.04 H (0.00-0.03) X10*3/uL Absolute Neuts (auto) 9.5 H (2.0-8.3) x10*3/uL Absolute Nucleated RBC 0.000 (0.0-0.012) X10*3/uL Nucleated RBC % (auto) 0.0 (0.0-0.2) /100WBC Sodium 142 (135-145) mmol/L Potassium 4.1 (3.3-5.1) mmol/L Chloride 101 (96-108) mmol/L Carbon Dioxide 33 H (22-29) mmol/L Anion Gap 12 (12-20) BUN 24 H (9-16) mg/dL Creatinine 1.09 (0.5-1.4) mg/dL Estim Creat Clear Calc 70.0 Estimated GFR 50 Random Glucose 112 (60-115) mg/dL Lactic Acid 1.0 (0.5-2.0) mmol/L Calcium 8.5 (8.4-10.2) mg/dL Total Bilirubin 0.4 (0.0-1.0) mg/dL Direct Bilirubin 0.2 (0.0-0.5) mg/dL AST 13 (5-31) U/L ALT 6 (0-31) U/L Alkaline Phosphatase 96 (39-117) U/L Total Protein 6.6 (6.5-8.0) g/dL Albumin 3.9 (3.5-5.0) g/dL Lipase 40 (8-78) U/L Urine Color Yellow Urine Appearance Clear Urine pH 6.5 (5.0-9.0) Ur Specific [place] 1.015 (1.005-1.025) Urine Protein Negative (Neg-Trace) mg/dL Urine Glucose (UA) Negative (Negative) mg/dL Urine Ketones Negative (Negative) mg/dL Urine Blood Negative (Negative) Urine Nitrite Negative (Negative) Ur Leukocyte Esterase Moderate (2+) H (Negative) Urine RBC 0-2 (0-2) /HPF Urine WBC 21-50 H (0-5) /HPF Ur Squamous Epith Cells 3-5 (0-2) /HPF Urine Bacteria None Seen (None Seen) Hyaline Casts 0-2 (0-2) /LPF Critical Care Time Critical Care Time Critical Care Time: Yes Total Critical Care Time: 45 Attestation: I have personally provided critical care time. Time includes review of lab data, radiology results, discussion with consultants, and monitoring for potential decompensation. Intervention performed as documented. Discharge Plan Discharge Clinical Impression: Acute UTI Patient Disposition: Home, Self-Care Instructions: Urinary Tract Infection in Older Adults (ED) Additional Instructions: Please follow-up with your primary care physician tomorrow. If you have any worsening or new symptoms, please return to the emergency room or call 911 Prescriptions: New cefuroxime axetil 500 mg tablet 500 mg PO BID Qty: 20 0RF No Action fluticasone propion-salmeterol [Advair Diskus] 250-50 mcg/dose blister with device 1 ea PO BID Qty: 60 3RF atorvastatin 10 mg tablet 1 tab PO BEDTIME carvedilol 6.25 mg tablet 1 tab PO BIDWM cetirizine 10 mg tablet 1 tab PO DAILY magnesium oxide 400 mg (241.3 mg magnesium) tablet 1 tab PO DAILY levothyroxine 50 mcg tablet 1 tab PO DAILY@0600 ferrous sulfate 325 mg (65 mg iron) tablet 1 tab PO DAILY montelukast 10 mg tablet 1 tab PO BEDTIME pregabalin 225 mg capsule 1 cap PO BID furosemide 40 mg tablet 80 mg PO DAILY cefuroxime axetil 250 mg tablet 250 mg PO BID 7 Days Qty: 14 0RF losartan 25 mg tablet 25 mg PO DAILY dexlansoprazole [Dexilant] 60 mg capsule,biphase delayed releas 60 mg PO DAILY@0630
[2022-12-19 23:20] VITALS: BP 131/42; PULSE 74; RESP 18; TEMP 36.8; O2SAT 100; BMI 56.4
[2022-12-19 23:39] LABS: MANUAL DIFF FLAG NO
[2022-12-19 23:41] LABS: Basophils Percent Auto 0.3 % (0-2); Eosinophils Absolute Auto 0.2 X10*3/uL (0.0-0.4); Eosinophils Percent Auto 1.3 % (0-4); Hematocrit 34.6 % (37.0-47.0); Hemoglobin 11.4 g/dl (12.0-16.0); Imm Gran Abs Auto 0.04 X10*3/uL (0.00-0.03); Imm Gran Pct Auto 0.3 % (0.0-0.4); Lymphocytes Absolute Auto 1.3 X10*3/uL (1.2-4.9); Lymphocytes Percent Auto 10.7 % (20-40); Mean Corpuscular HGB Conc 32.9 g/dl (31.0-35.0); Mean Corpuscular Hemoglobin 29.2 pg (27.0-33.0); Mean Corpuscular Volume 88.5 fL (80.0-98.0); Mean Platelet Volume 10.8 fL (9.4-12.3); Monocytes Absolute Auto 0.9 X10*3/uL (0.1-1.2); Monocytes Percent Auto 7.6 % (2-11); Neutrophils Absolute Auto 9.5 x10*3/uL (2.0-8.3); Neutrophils Percent Auto 79.8 % (45-73); Platelet Count 257 X10*3/uL (160-400); Red Blood Count 3.91 X10*6/uL (4.20-5.50); Red Cell Distribution Width 13.7 % (11.0-16.0); White Blood Count 11.9 X10*3/uL (4.8-10.8)
[2022-12-19 23:55] LABS: Alanine Aminotransferase 6 U/L (0-31); Albumin Level 3.9 g/dL (3.5-5.0); Alkaline Phosphatase 96 U/L (39-117); Anion Gap 12 (12-20); Aspartate Amino Transferase 13 U/L (5-31); Bilirubin Direct 0.2 mg/dL (0.0-0.5); Bilirubin Total 0.4 mg/dL (0.0-1.0); Blood Urea Nitrogen 24 mg/dL (9-16); Calcium 8.5 mg/dL (8.4-10.2); Carbon Dioxide 33 mmol/L (22-29); Chloride 101 mmol/L (96-108); Estimated Glomerular Filt Rate 50; Glucose Random 112 mg/dL (60-115); Lipase 40 U/L (8-78); Potassium 4.1 mmol/L (3.3-5.1); Sodium 142 mmol/L (135-145); Total Protein 6.6 g/dL (6.5-8.0)
[2022-12-20 00:13] VITALS: BP 141/51; PULSE 71; RESP 18; O2SAT 100
--- NOTE | 2022-12-20 00:14 | MHC.EDTECH ---
Patient ambulated with walker with a 1 assist to bathroom,patient urinated 150cc and specimen was obtained and sent to lab.
[2022-12-20 00:36] LABS: Appearance Urine Clear; Color Urine Yellow; Glucose Urine UA Negative (Negative); Leukocyte Esterase Urine Moderate (2+) (Negative); Nitrite Urine Negative (Negative); PH 6.5 (5.0-9.0); Specific Gravity - Urine 1.015 (1.005-1.025); UMIC TRIGGER UACC YES; Urine Blood Negative (Negative); Urine Ketones Negative (Negative); Urine Protein Negative (Neg-Trace)
[2022-12-20 00:41] LABS: Bacteria Urine None Seen (None Seen); Hyaline Casts Urine 0-2 /LPF (0-2); RBC Urine 0-2 /HPF (0-2); UACC Culture Trigger YES; WBC Urine 21-50 /HPF (0-5)
[2022-12-20] MEDS: cefTRIAXone sodium 1 GM, Lidocaine HCl 1 % MPF 2.1 ML IM (01:16)
== END 2022-12-20 01:36 | disposition home or self-care (01) ==
PROVIDERS: Emergency Provider Emergency Medicine
DX: N39.0 Urinary tract infection, site not specified (principal); B96.4 Proteus (mirabilis) (morganii) as the cause of diseases classified elsewhere; I10 Essential (primary) hypertension; E78.00 Pure hypercholesterolemia, unspecified; Z79.899 Other long term (current) drug therapy
CPT/HCPCS: 36415; 80048; 80076; 81001; 83605; 83690; 85025; 87040; 87086; 87088; 87147; 87186; 87205; 96372; 99284; J0696

== ENCOUNTER 2023-01-06 03:18 | Emergency (ER) | payer MEDICARE, MEDICAID, SELFPAY ==
[2023-01-06 03:33] VITALS: BP 146/37; PULSE 62; RESP 18; TEMP 36.4; O2SAT 100; BMI 55.3
--- NOTE | 2023-01-06 04:09 | ED_ITS ---
HPI - Female Genitourinary General Chief complaint: Urogenital-Female Stated complaint: Yeast Infection Time Seen by Provider: 01/06/23 03:26 Source: patient and EMS Mode of arrival: EMS History of Present Illness HPI Narrative: 72-year-old female who arrives via EMS with complaints vaginal yeast infection which was diagnosed over a week ago and patient was recently seen here in the emergency room for the same and provided a prescription. However, patient states that her partner has been unable to picker and sorter load and unload the prescription. She also describes bilateral chronic foot pain but denies any traumatic injuries to either. Related Data Home Medications Medication Instructions Recorded Confirmed carvedilol 6.25 mg tablet 1 tab PO BIDWM 03/13/21 11/21/22 cetirizine 10 mg tablet 1 tab PO DAILY 03/13/21 11/21/22 ferrous sulfate 325 mg (65 mg 1 tab PO DAILY 03/13/21 11/21/22 iron) tablet levothyroxine 50 mcg tablet 1 tab PO DAILY@0600 03/13/21 11/21/22 magnesium oxide 400 mg (241.3 mg 1 tab PO DAILY 03/13/21 11/21/22 magnesium) tablet montelukast 10 mg tablet 1 tab PO BEDTIME 03/13/21 11/21/22 pregabalin 225 mg capsule 1 cap PO BID 03/13/21 11/21/22 atorvastatin 10 mg tablet 1 tab PO BEDTIME 03/14/21 11/21/22 dexlansoprazole 60 mg 60 mg PO DAILY@0630 06/07/21 11/21/22 capsule,biphase delayed release (Dexilant) losartan 25 mg tablet 25 mg PO DAILY 06/07/21 11/21/22 furosemide 40 mg tablet 80 mg PO DAILY 10/02/22 11/21/22 Previous Rx's Medication Instructions Recorded cefuroxime axetil 250 mg tablet 250 mg PO BID 7 days #14 tabs 11/21/22 Advair Diskus 250 mcg-50 mcg/dose 1 ea PO BID #60 ea 12/20/22 powder for inhalation (fluticasone propion-salmeterol) cefuroxime axetil 500 mg tablet 500 mg PO BID #20 tabs 12/20/22 Allergies Allergy/AdvReac Type Severity Reaction Status Date / Time celecoxib [From CELEBREX] Allergy Unknown RASH Verified 12/06/22 14:27 Latex, Natural Rubber Allergy Unknown Rash Verified 12/06/22 14:27 ibuprofen [IBUPROFEN] AdvReac Intermediate RASH Verified 12/06/22 14:27 Review of Systems Review of Systems: Pertinent positives and negatives as stated in [facility] Past Medical History Source: nursing notes reviewed Medical History Respiratory failure Interstitial lung disease Seasonal allergies Diarrhea Neuropathy Asthma Hypercholesteremia GERD (gastroesophageal reflux disease) Thyroid activity decreased Hypertension Surgical History Hx of cataract surgery H/O: hysterectomy History of cholecystectomy Family History Family History Mother Asthma Father No problems noted. 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 Housing: Apartment Housing Other:: [employer] Do you presently have visiting nurse or other home services: No Unable to assess alcohol history related to: Unknown Alcohol intake: never Patient Tobacco Use Status: Never used Tobacco Smoked in Last 30 Days: No Advance Directives: No Advance Directives Information Provided: No service: No Current occupational status: retired Physical Exam Vital Signs: Vital Signs: Last Vital Signs Temp 97.6 F 01/06/23 03:33 Pulse 62 01/06/23 03:33 Resp 18 01/06/23 03:33 BP 146/37 H 01/06/23 03:33 Pulse Ox 100 01/06/23 03:33 O2 Del Method Room Air 01/06/23 03:33 BMI result Body Mass Index 55.3 VITAL SIGNS: Reviewed. GENERAL: Elevated BMI, in no acute distress. HEAD: Normocephalic/atraumatic EYES: PERRLA, EOMI EARS: Ext canals without abnormality NOSE: Nares patent bilateral OROPHARYNX: no oral lesions noted, posterior pharynx clear NECK: Supple, no adenopathy LUNGS: Normal breath sounds. No adventitious sounds or accessory muscle use. SpO2<100> CARDIOVASCULAR: Regular rate and rhythm without noted murmurs ABDOMEN: Soft, non-tender, non-distended with bowel sounds. MUSCULOSKELETAL: No tenderness, deformities, or effusions noted on gross inspection. EXTREMITIES: No cyanosis, clubbing or edema, there is no pitting edema to either ankle, there is no erythema or induration, feet are warm and pulses are palpable. SKIN: Inspection of the skin reveals no rashes NEUROLOGIC: Alert and oriented x 4. Strength and sensation to light touch were grossly intact x 4. Medical Decision Making Medical Decision Making MDM Narrative: 72-year-old female with history and clinical presentation of presenting for the same vaginal yeast infection and has not started her medication. We did place an Vic wrap to each foot and ankle to help relieve some of the patient's discomfort that is likely secondary to significant elevated BMI. There is no evidence of infection/fluid overload/injury, or vascular compromise. Once again, there is no medication in the hospital available to help the patient with her candidiasis. Differential Diagnosis Differential Diagnoses: The differential diagnosis associated with the presentation includes Please see the discussion above External Record Review External record reviewed: Outpatient record, Prior outpatient labs and Prior outpatient radiology Discharge Plan Discharge Clinical Impression: Candidiasis of vagina Instructions: Yeast Infection (ED) Additional Instructions: 1. Resume all home medications as prescribed. 2. Begin taking the medication for your yeast infection as prescribed. 3. Please follow-up with your primary care doctor and discuss the possibility of medication delivery. Return to the ER for any worsening symptoms. Prescriptions: No Action fluticasone propion-salmeterol [Advair Diskus] 250-50 mcg/dose blister with device 1 ea PO BID Qty: 60 3RF atorvastatin 10 mg tablet 1 tab PO BEDTIME carvedilol 6.25 mg tablet 1 tab PO BIDWM cetirizine 10 mg tablet 1 tab PO DAILY magnesium oxide 400 mg (241.3 mg magnesium) tablet 1 tab PO DAILY levothyroxine 50 mcg tablet 1 tab PO DAILY@0600 ferrous sulfate 325 mg (65 mg iron) tablet 1 tab PO DAILY montelukast 10 mg tablet 1 tab PO BEDTIME pregabalin 225 mg capsule 1 cap PO BID furosemide 40 mg tablet 80 mg PO DAILY cefuroxime axetil 250 mg tablet 250 mg PO BID 7 Days Qty: 14 0RF cefuroxime axetil 500 mg tablet 500 mg PO BID Qty: 20 0RF losartan 25 mg tablet 25 mg PO DAILY dexlansoprazole [Dexilant] 60 mg capsule,biphase delayed releas 60 mg PO DAILY@0630
[2023-01-06 05:31] VITALS: BP 135/40; PULSE 61; RESP 16; TEMP 36.6; O2SAT 100
--- NOTE | 2023-01-06 05:36 | MHC.EDTECH ---
call out to mamie at 0513 to book transport for pt back home, estimated eta given was [id number]
== END 2023-01-06 06:55 | disposition home or self-care (01) ==
PROVIDERS: Emergency Provider Student in an Organized Health Care Education/Training Program
DX: B37.31 Acute candidiasis of vulva and vagina (principal); M79.672 Pain in left foot; G89.29 Other chronic pain; M79.671 Pain in right foot; E66.9 Obesity, unspecified; Z68.43 Body mass index [BMI] 50.0-59.9, adult
CPT/HCPCS: 99283

== ENCOUNTER 2023-01-29 13:36 | Outpatient (AMB) | payer MEDICARE, MEDICAID, SELFPAY ==
--- NOTE | 2023-01-29 13:46 | MHC.OFFVIS ---
Intake Vital Signs 01/29/23 13:47 Height 5 ft 4 in Weight 322 lb BMI 55.3 BP 122/64 Blood Pressure Location Lt brachial Position Sitting Pulse 57 Pulse Source Pulse Oximeter Pulse Oximetry (%) 100 Oxygen Delivery Method Nasal Cannula Oxygen Flow Rate 3 Intake Visit Reasons: copd [employer] Att[employer] Required: No Allergies celecoxib [From CELEBREX] Allergy (Unknown, Verified 01/29/23 14:03) RASH Latex, Natural Rubber Allergy (Unknown, Verified 01/29/23 14:03) Rash ibuprofen [IBUPROFEN] Adverse Reaction (Intermediate, Verified 01/29/23 14:03) RASH Medication List - Last Reconciled 01/29/23 by Quin Riley MD Advair Diskus 250-50 mcg/dose (fluticasone propion-salmeterol) 1 ea PO BID NS atorvastatin 1 tab PO BEDTIME carvedilol 1 tab PO BIDWM cetirizine 1 tab PO DAILY dexlansoprazole (Dexilant) 60 mg PO DAILY@0630 ferrous sulfate 1 tab PO DAILY furosemide 80 mg PO DAILY levothyroxine 1 tab PO DAILY@0600 losartan 25 mg PO DAILY magnesium oxide 1 tab PO DAILY montelukast 1 tab PO BEDTIME pregabalin 1 cap PO BID Do you need a note to return to daycare/school/sports/work: No HPI copd HPI Details THIS 72 YEARS OLD FEMALE WITH MORBID OBESITY, ILD ,RESTRICTIVE LUNG DISEASE, , COPD CHRONIC HYPOXEMIA, AND MULTIPLE COMORBIDITIES. PHYSICALLY SHE IS SEVERELY LIMITED AND TODAY ACTUALLY CAME TO THE OFFICE IN A STRETCHER. SHE SAY IS SHE IS NOT ABLE TO STAND AND WALK DUE TO MARKED GENERALIZED WEAKNESS. SHE STATED THAT BREATHING SHARPE SHE HAS BEEN DOING WELL, SHE DENIES ANY COUGH OR WHEEZING. SHE DOES GET SHORT OF BREATH WHEN SHE MOVES AROUND, SHE STAYS ON OXYGEN 3 L/MINUTE. SHE IS MORBIDLY OBESE BUT SHE DENIES SYMPTOMS OF SLEEP APNEA AND SHE MOSTLY SLEEPS IN THE RECLINER OR IN A PROPPED UP POSITION WHICH HELPS. [facility] Medical History Respiratory failure Interstitial lung disease Seasonal allergies Diarrhea Neuropathy Asthma Hypercholesteremia GERD (gastroesophageal reflux disease) Thyroid activity decreased Hypertension Surgical History Hx of cataract surgery H/O: hysterectomy History of cholecystectomy Family History Mother Asthma Father No problems noted. 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 Housing: Apartment Housing Other:: [employer] Do you presently have visiting nurse or other home services: No Unable to assess alcohol history related to: Unknown Alcohol intake: never Patient Tobacco Use Status: Never used Tobacco service: No Current occupational status: retired Review of Systems Const All systems reviewed & are unremarkable except as noted in HPI and below Eyes Reports no additional complaints ENT Reports dysphagia (Not active at present, much improved.), Reports nasal congestion and Reports nasal discharge Card Denies chest pain, Denies irregular heart rhythm and Denies leg edema Resp Reports as per HPI GI Reports dysphagia (Not active at present, much improved.) Reports no additional complaints Musc Reports abnormal gait (UNSTEADY GAIT NEEDS TO USE THE WALKER) and Reports muscle weakness (WEAKNESS IN LOWER EXTREMITY) Skin/Breast Reports system reviewed and no additional complaints, except as documented Neuro Reports abnormal gait (UNSTEADY GAIT NEEDS TO USE THE WALKER) Psych Reports no additional complaints Physical Exam Vital Signs: Last Vital Signs Pulse 57 01/29/23 13:47 BP 122/64 01/29/23 13:47 Pulse Ox 100 01/29/23 13:47 Oxygen Delivery Method Nasal Cannula 01/29/23 13:47 Oxygen Flow Rate 3 01/29/23 13:47 BMI result Body Mass Index 55.3 Const General: comfortable, no acute distress, alert and awake Orientation/consciousness: patient oriented x3 HEENT Head: Yes normal to inspection General nose exam: No nasal polyps present and No nasal discharge present Face and sinus: Yes sinuses nontender Mouth: oropharynx normal Throat: Yes posterior oropharynx normal Eyes General: appearance normal, both eyes and all related structures Neck Neck: Yes normal visual inspection, Yes no lymphadenopathy, Yes trachea midline and Yes no JVD Thyroid: Thyroid normal Chest Chest palpation & inspection: normal inspection of the chest, normal palpation of entire chest wall and no tenderness Resp Other: Percussion note resonant, breath sounds are distant especially decreased over the basilar areas. No audible wheezes rhonchi or crepitations. Cardio Palpation: normal PMI Rate: regular rate Rhythm: regular rhythm Heart sounds: no gallops and no murmurs GI Palpation (GI): Soft to palpation, nontender, No hepatosplenomegaly present, no masses and Other GI palpation findings present (Abdomen is grossly obese and somewhat pendulous) Auscultation: normal bowel sounds Back/Spine/Pelvis Thoracic/Lumbar Spine: thoracic and lumbar spine normal to inspection and thoraco-lumbar ROM limited Skin General skin exam: no rashes or lesions noted Neuro General: patient oriented x3, No gait normal (Gait is markedly impaired, she uses walker) and no focal motor deficits Cranial nerves: Yes CN's II-XII intact bilaterally Extrem General: Yes normal to inspection, Yes no clubbing, cyanosis or edema and Yes no calf tenderness Psych Appearance: grossly normal and well kempt Speech and movement: Normal speech and movement present Assessment & Plan Assessment & Plan (1) Morbid obesity: Comment: THIS IS A CHRONIC PROBLEM, SHE IS TRYING TO LIMIT HER CALORIES INTAKE, CANNOT DO MUCH EXERCISE. NOT MUCH POTENTIAL FOR ANY SIGNIFICANT WEIGHT LOSS. Code(s): E66.01 - Morbid (severe) obesity due to excess calories (2) Obesity hypoventilation syndrome: Comment: PATIENT HAS CHRONIC SLEEP APNEA/HYPOVENTILATION SYNDROME. UNFORTUNATELY UNABLE TO USE THE CPAP OR BIPAP. ADVISED TO DO DEEP BREATHING EXERCISES 3 TIMES A DAY REGULARLY, HAS INCENTIVE SPIROMETER AT HOME . KEEP ON USING O2 2.5 L PER MINUTE AT REST AND 3 L/MT WHEN OUTDOORS. Code(s): E66.2 - Morbid (severe) obesity with alveolar hypoventilation (3) Obstructive sleep apnea: Comment: HAS CHRONIC OBSTRUCTIVE SLEEP APNEA AT LEAST FOR 15 YEARS. SHE IS JUST NOT ABLE TO USE THE CPAP. SO SHE IS JUST USING OXYGEN 2.5 L/MINUTE AT NIGHTTIME, WELL DURING THE DAYTIME. Code(s): G47.33 - Obstructive sleep apnea (adult) (pediatric) (4) Interstitial lung disease: Comment: SHE HAD ACUTE INTERSTITIAL LUNG DISEASE, FOLLOWING COVID INFECTION. LAST CHEST X-RAY IN NOVEMBER 2020, SHOWED THAT ALL INTERSTITIAL LUNG DISEASE HAD RESOLVED. She is a candidate for severe restrictive pulmonary disorder due to her morbid obesity. Advised to keep on doing deep breathing exercises. 3 to 4 times a day Code(s): J84.9 - Interstitial pulmonary disease, unspecified (5) Asthma: Comment: IN ADDITION TO ALL HER ABOVE-NOTED PROBLEMS, SHE ALSO HAS BRONCHIAL ASTHMA/MILD RESTRICTIVE PULMONARY DISORDER. SHE IS ADVISED TO CONTINUE DOING DEEP BREATHING EXERCISES. CONTINUE TO USE MONTELUKAST 10 MG DAILY. CONTINUE TO USE ADVAIR 250-50 1 PUFF B.I.D. Code(s): J45.909 - Unspecified asthma, uncomplicated (6) Respiratory failure: Comment: PATIENT HAS CHRONIC HYPOXEMIC AND HYPERCAPNIC RESPIRATORY FAILURE. MAINLY SECONDARY TO MORBID OBESITY, RESTRICTIVE LUNG DISEASE AND UN-TREATED SLEEP APNEA. TX : CANNOT USE CPAP OR BIPAP. CONTINUE OXYGEN 2.5 L/MINUTE AT NIGHT AND MAY USE 3 L/MINUTE WITH PORTABLE UNIT. PATIENT ENQUIRING ABOUT HAVING POC FOR PORTABILITY. EXPLAINED TO HER THAT SHE HAS TO QUALIFY FOR THAT. MAY NOT QUALIFY BECAUSE FOR POC SHE WOULD NEED A PULSE MODE. Code(s): J96.90 - Respiratory failure, unspecified, unspecified whether with hypoxia or hypercapnia Coding Level of Care Code Est Pt Level 4 (28428) Diagnoses Morbid obesity E66.01 Obesity hypoventilation syndrome E66.2 Obstructive sleep apnea G47.33 Interstitial lung disease J84.9 Asthma J45.909 Respiratory failure J96.90
[2023-01-29 13:47] VITALS: BP 122/64; PULSE 57; O2SAT 100; BMI 55.3
== END 2023-01-29 14:09 | disposition home or self-care (01) ==
PROVIDERS: PCP Internal Medicine; Visit Provider Internal Medicine
DX: E66.2 Morbid (severe) obesity with alveolar hypoventilation (principal); J84.9 Interstitial pulmonary disease, unspecified; J45.909 Unspecified asthma, uncomplicated; J96.90 Respiratory failure, unspecified, unspecified whether with hypoxia or hypercapnia
CPT/HCPCS: 99214

== ENCOUNTER → 2023-01-29 13:36 | Outpatient (BNVA) | payer MEDICARE, MEDICAID, SELFPAY | PROVIDERS: PCP Internal Medicine; Visit Provider Internal Medicine | DX: E66.2 Morbid (severe) obesity with alveolar hypoventilation (principal); G47.33 Obstructive sleep apnea (adult) (pediatric); J84.9 Interstitial pulmonary disease, unspecified; J45.909 Unspecified asthma, uncomplicated; J96.90 Respiratory failure, unspecified, unspecified whether with hypoxia or hypercapnia; Z68.43 Body mass index [BMI] 50.0-59.9, adult | CPT/HCPCS: 99212 ==

== ENCOUNTER 2023-03-28 10:09 | Emergency (ER) | payer MEDICARE, MEDICAID, SELFPAY ==
[2023-03-28 10:15] VITALS: BP 136/72; PULSE 59; O2SAT 98
--- NOTE | 2023-03-28 10:20 | ED.SOB ---
HPI - SOB/Dyspnea General Chief Complaint: Dizziness Stated Complaint: NAUSEA,SOB X2 WKS,ON HOME O2 3LPM PER EMS Time Seen by Provider: 03/28/23 10:19 Source: patient Mode of arrival: EMS Limitations: no limitations History of Present Illness HPI Narrative: 72-year-old female history of restrictive and interstitial lung disease, obstructive sleep apnea, asthma, neuropathy, diarrhea, hypertension, high cholesterol, GERDwho presents emergency department for evaluation of a nausea, shortness of breath, sweats, lightheadedness, shakes, frequency, dysuria x2 weeks. Patient states that this is her 3rd visit to various providers for these symptoms. She states she initially was diagnosed with urinary tract infection treated with antibiotics and then was told by provider at [facility] that she had a yeast infection but was not able to get the [id number] medication needed to treat the infection. She states that her symptoms have not improved therefore she came to the emergency department to be seen Related Data Home Medications Medication Instructions Recorded Confirmed carvedilol 6.25 mg tablet 1 tab PO BIDWM 03/13/21 11/21/22 cetirizine 10 mg tablet 1 tab PO DAILY 03/13/21 11/21/22 ferrous sulfate 325 mg (65 mg 1 tab PO DAILY 03/13/21 11/21/22 iron) tablet levothyroxine 50 mcg tablet 1 tab PO DAILY@0600 03/13/21 11/21/22 magnesium oxide 400 mg (241.3 mg 1 tab PO DAILY 03/13/21 11/21/22 magnesium) tablet montelukast 10 mg tablet 1 tab PO BEDTIME 03/13/21 11/21/22 pregabalin 225 mg capsule 1 cap PO BID 03/13/21 11/21/22 atorvastatin 10 mg tablet 1 tab PO BEDTIME 03/14/21 11/21/22 dexlansoprazole 60 mg 60 mg PO DAILY@0630 06/07/21 11/21/22 capsule,biphase delayed release (Dexilant) losartan 25 mg tablet 25 mg PO DAILY 06/07/21 11/21/22 furosemide 40 mg tablet 80 mg PO DAILY 10/02/22 11/21/22 Previous Rx's Medication Instructions Recorded Advair Diskus 250 mcg-50 mcg/dose 1 ea PO BID #60 ea 03/15/23 powder for inhalation (fluticasone propion-salmeterol) fluconazole 150 mg tablet 150 mg PO QWEEK 2 weeks #2 tabs 03/28/23 miconazole nitrate 2 % vaginal 1 appful vaginal BEDTIME 7 days 03/28/23 cream (Monistat 7) #45 grams Allergies Allergy/AdvReac Type Severity Reaction Status Date / Time celecoxib [From CELEBREX] Allergy Unknown RASH Verified 01/29/23 14:03 Latex, Natural Rubber Allergy Unknown Rash Verified 01/29/23 14:03 ibuprofen [IBUPROFEN] AdvReac Intermediate RASH Verified 01/29/23 14:03 Review of Systems Review of Systems: Yes all other systems are reviewed and are negative [facility] Past Medical History Medical History Respiratory failure Interstitial lung disease Seasonal allergies Diarrhea Neuropathy Asthma Hypercholesteremia GERD (gastroesophageal reflux disease) Thyroid activity decreased Hypertension Surgical History Hx of cataract surgery H/O: hysterectomy History of cholecystectomy Family History Family History Mother Asthma Father No problems noted. 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 Housing: Apartment Housing Other:: [employer] Do you presently have visiting nurse or other home services: No Unable to assess alcohol history related to: Unknown Alcohol intake: never Patient Tobacco Use Status: Never used Tobacco Smoked in Last 30 Days: No Use of substances other than those prescribed or required for medical reasons: No Advance Directives: No Advance Directives Information Provided: Yes service: No Current occupational status: retired Physical Exam Vital Signs: Vital Signs: Last Vital Signs Temp 98.2 F 03/28/23 11:56 Pulse 62 03/28/23 11:56 Resp 14 03/28/23 11:56 BP 117/37 L 03/28/23 10:34 Pulse Ox 94 03/28/23 11:56 O2 Del Method Nasal Cannula 03/28/23 11:56 O2 Flow Rate 3 03/28/23 11:56 Oxygen Flow Rate 3 03/28/23 10:34 BMI result Body Mass Index 51.7 Vital signs normal Exam: General: Awake, alert in no distress , elevated BMI 51.7 Head: Normocephalic, atraumatic EENT: PERRL, Lids normal, sclera normal, conjunctiva normal, nose normal , ears normal, throat without erythema or exudates Neck: Supple, no adenopathy, no trachea midline or C-spine tenderness Lung: breath sounds symmetric, no wheezing, rales or rhonchi Chest: symmetric movement, nontender Heart: regular rate and rhythm, normal S1, S2 no murmurs or rubs Abdomen: soft, moderate suprapubic tenderness, nondistended, normal bowel sounds Back: no vertebral tenderness, no CVAT Extremities: no deformities, moves all extremities symmetrically Neuro: Awake, alert, oriented, normal speech, cranial nerves intact, moves all extremities symmetrically Psych: Pleasant, cooperative Medical Decision Making Medical Decision Making [facility] Narrative: 72-year-old female history of restrictive and interstitial lung disease, obstructive sleep apnea, asthma, neuropathy, diarrhea, hypertension, high cholesterol, GERD who presents emergency department for evaluation of a nausea, shortness of breath, sweats, lightheadedness, shakes, frequency, dysuria x2 weeks. Patient states that this is her 3rd visit to various providers for these symptoms. States she initially treated for urinary tract infection that told that she had the use infection but did not complete treatment. Patient where 3 L of oxygen continually for her lung disease and she has not had increased her FiO2. Vital signs were normal. Examination did reveal suprapubic tenderness otherwise unremarkable. Following evaluation was ordered: Straight cath urinalysis, COVID-19, influenza, RSV 13:12 My interpretation patient's laboratory evaluation is as follows: Urinalysis was negative. RSV, COVID-19 and influenza were negative. Patient most likely has a yeast infection which is not been treated. Patient was given prescription for Diflucan 150 mg 1 pill now and 1 pill in 1 week. She was also prescribed Monistat 7 to apply to the vaginal area once a day for 1 week. She was given printed and verbal instructions and discharged home Differential Diagnosis Differential Diagnoses: The differential diagnosis associated with the presentation includes Differential diagnosis includes was not limited to viral syndrome, RSV, flu, COVID-19, urinary tract infection, vaginal candidiasis Lab Data [facility] Lab Attestation statement: I reviewed the patient's lab results. See [facility] Labs: Lab Results 03/28/23 Range/Units 11:51 Urine Color Yellow Urine Appearance Clear Urine pH 7.5 (5.0-9.0) Ur Specific [place] 1.010 (1.005-1.025) Urine Protein Negative (Neg-Trace) mg/dL Urine Glucose (UA) Negative (Negative) mg/dL Urine Ketones Negative (Negative) mg/dL Urine Blood Negative (Negative) Urine Nitrite Negative (Negative) Ur Leukocyte Esterase Negative (Negative) Influenza Type A (PCR) NEGATIVE (Negative) Influenza Type B (PCR) NEGATIVE (Negative) RSV RNA Qual (PCR) NEGATIVE (Negative) SARS-CoV-2 RNA (RT-PCR) NEGATIVE (Negative) Prescription Management I considered prescription management with: Other (Antifungal) Chronic Conditions Patient?s care impacted by: Other (Interstitial lung disease) Discharge Plan Discharge Clinical Impression: Candidiasis of vagina Patient Disposition: Home, Self-Care Instructions: Yeast Infection (ED) Additional Instructions: Your urinalysis was negative for bacterial infection. Your COVID-19, influenza and RSV were negative Your symptoms are most likely caused by a yeast infection. Take Diflucan 150 mg pills, 1 pill when you first get the medication and then repeat 1 pill 1 week later. You Monistat 7 once a day for 1 week. Continue your other medications as prescribed Follow-up with your doctor in 2 days. Please return to the emergency department if your symptoms get worse or if you develop any symptoms that are concerning to you. Prescriptions: New fluconazole 150 mg tablet 150 mg PO QWEEK 14 Days Qty: 2 0RF miconazole nitrate [Monistat 7] 2 % cream 1 appful vaginal BEDTIME 7 Days Qty: 45 0RF No Action fluticasone propion-salmeterol [Advair Diskus] 250-50 mcg/dose blister with device 1 ea PO BID Qty: 60 3RF atorvastatin 10 mg tablet 1 tab PO BEDTIME carvedilol 6.25 mg tablet 1 tab PO BIDWM cetirizine 10 mg tablet 1 tab PO DAILY magnesium oxide 400 mg (241.3 mg magnesium) tablet 1 tab PO DAILY levothyroxine 50 mcg tablet 1 tab PO DAILY@0600 ferrous sulfate 325 mg (65 mg iron) tablet 1 tab PO DAILY montelukast 10 mg tablet 1 tab PO BEDTIME pregabalin 225 mg capsule 1 cap PO BID furosemide 40 mg tablet 80 mg PO DAILY losartan 25 mg tablet 25 mg PO DAILY dexlansoprazole [Dexilant] 60 mg capsule,biphase delayed releas 60 mg PO DAILY@0630
[2023-03-28 10:34] VITALS: BP 117/37; PULSE 59; RESP 20; TEMP 36.4; O2SAT 100; BMI 51.7
--- NOTE | 2023-03-28 11:55 | PC.NURSE ---
This RN straight cathed patient. Pt tolerated well. 400mls of output from catheter. Pt offering no complaints at this time
[2023-03-28 11:56] VITALS: PULSE 62; RESP 14; TEMP 36.8; O2SAT 94
[2023-03-28 12:02] LABS: Appearance Urine Clear; Color Urine Yellow; Glucose Urine UA Negative (Negative); Leukocyte Esterase Urine Negative (Negative); Nitrite Urine Negative (Negative); PH 7.5 (5.0-9.0); Urine Blood Negative (Negative); Urine Ketones Negative (Negative); Urine Protein Negative (Neg-Trace)
[2023-03-28 12:42] LABS: Influenza A PCR NEGATIVE (Negative); Influenza B PCR NEGATIVE (Negative); Resp Syncy Virus RNA Qual PCR NEGATIVE (Negative); SARS COV2 PCR INHOUSE NEGATIVE (Negative)
--- NOTE | 2023-03-28 15:27 | PC.NURSE ---
Pt resting on stretcher, awaiting EMS at this time. Respirations even and unlabored, skin pwd, alert and oriented x4, no apparent distress
== END 2023-03-28 15:44 | disposition home or self-care (01) ==
PROVIDERS: Emergency Provider Emergency Medicine Emergency Medical Services; PCP Internal Medicine
DX: B37.31 Acute candidiasis of vulva and vagina (principal); R35.0 Frequency of micturition; R11.2 Nausea with vomiting, unspecified; R42 Dizziness and giddiness; R30.0 Dysuria; R06.02 Shortness of breath; Z20.822 Contact with and (suspected) exposure to COVID-19; Z20.828 Contact with and (suspected) exposure to other viral communicable diseases; Z79.899 Other long term (current) drug therapy
CPT/HCPCS: 0241U; 51701; 81003; 99283; 99284

== ENCOUNTER 2023-04-22 00:40 | Emergency (ER) | payer MEDICARE, MEDICAID, SELFPAY ==
[2023-04-22 00:55] VITALS: BP 134/70; PULSE 71; O2SAT 96; BMI 52.7
[2023-04-22 00:59] VITALS: BP 113/42; PULSE 67; RESP 18; TEMP 36.6; O2SAT 96
[2023-04-22 01:38] LABS: Basophils Absolute Auto 0.1 X10*3/uL (0.0-0.2); Basophils Percent Auto 0.7 % (0-2); Eosinophils Absolute Auto 0.4 X10*3/uL (0.0-0.4); Hematocrit 35.1 % (37.0-47.0); Hemoglobin 11.7 g/dl (12.0-16.0); Imm Gran Abs Auto 0.04 X10*3/uL (0.00-0.03); Imm Gran Pct Auto 0.4 % (0.0-0.4); Lymphocytes Absolute Auto 2.1 X10*3/uL (1.2-4.9); Lymphocytes Percent Auto 22.9 % (20-40); Mean Corpuscular HGB Conc 33.3 g/dl (31.0-35.0); Mean Corpuscular Hemoglobin 28.6 pg (27.0-33.0); Mean Corpuscular Volume 85.8 fL (80.0-98.0); Mean Platelet Volume 11.6 fL (9.4-12.3); Monocytes Absolute Auto 0.8 X10*3/uL (0.1-1.2); Monocytes Percent Auto 9.1 % (2-11); Neutrophils Absolute Auto 5.7 x10*3/uL (2.0-8.3); Neutrophils Percent Auto 62.9 % (45-73); Platelet Count 167 X10*3/uL (160-400); Red Blood Count 4.09 X10*6/uL (4.20-5.50); Red Cell Distribution Width 13.9 % (11.0-16.0); White Blood Count 9.1 X10*3/uL (4.8-10.8)
[2023-04-22 01:39] LABS: Alanine Aminotransferase 11 U/L (0-31); Albumin Level 3.6 g/dL (3.5-5.0); Alkaline Phosphatase 91 U/L (39-117); Anion Gap 17 (12-20); Aspartate Amino Transferase 19 U/L (5-31); Bilirubin Total 0.6 mg/dL (0.0-1.0); Blood Urea Nitrogen 25 mg/dL (9-16); Calcium 8.6 mg/dL (8.4-10.2); Carbon Dioxide 26 mmol/L (22-29); Chloride 101 mmol/L (96-108); Creatinine Clr Calc Pharmacy 58.7; Estimated Glomerular Filt Rate 41; Glucose Random 112 mg/dL (60-115); Potassium 4.2 mmol/L (3.3-5.1); Sodium 140 mmol/L (135-145); Total Protein 6.9 g/dL (6.5-8.0)
[2023-04-22 01:39] LABS: MANUAL DIFF FLAG NO
--- NOTE | 2023-04-22 01:43 | ED_ITS ---
HPI - General Adult General Chief complaint: Skin/Abscess/Foreign Body Stated complaint: rash Time Seen by Provider: 04/22/23 01:37 Source: patient, RN notes reviewed and old records reviewed Mode of arrival: ambulatory Limitations: no limitations History of Present Illness HPI narrative: 72-year-old female presents for evaluation of a rash to her right ankle She completed a course of doxycycline 3 days ago for a full week course Her rash seems to be getting worse and not better The rash is mostly itchy but slightly painful Denies any fevers or chills The rash has now been present for approximately 2 weeks Denies any wounds or trauma to the area Related Data Home Medications Medication Instructions Recorded Confirmed carvedilol 6.25 mg tablet 1 tab PO BIDWM 03/13/21 11/21/22 cetirizine 10 mg tablet 1 tab PO DAILY 03/13/21 11/21/22 ferrous sulfate 325 mg (65 mg 1 tab PO DAILY 03/13/21 11/21/22 iron) tablet levothyroxine 50 mcg tablet 1 tab PO DAILY@0600 03/13/21 11/21/22 magnesium oxide 400 mg (241.3 mg 1 tab PO DAILY 03/13/21 11/21/22 magnesium) tablet montelukast 10 mg tablet 1 tab PO BEDTIME 03/13/21 11/21/22 pregabalin 225 mg capsule 1 cap PO BID 03/13/21 11/21/22 atorvastatin 10 mg tablet 1 tab PO BEDTIME 03/14/21 11/21/22 dexlansoprazole 60 mg 60 mg PO DAILY@0630 06/07/21 11/21/22 capsule,biphase delayed release (Dexilant) losartan 25 mg tablet 25 mg PO DAILY 06/07/21 11/21/22 furosemide 40 mg tablet 80 mg PO DAILY 10/02/22 11/21/22 Previous Rx's Medication Instructions Recorded Advair Diskus 250 mcg-50 mcg/dose 1 ea PO BID #60 ea 03/15/23 powder for inhalation (fluticasone propion-salmeterol) fluconazole 150 mg tablet 150 mg PO QWEEK 2 weeks #2 tabs 03/28/23 miconazole nitrate 2 % vaginal 1 appful vaginal BEDTIME 7 days 03/28/23 cream (Monistat 7) #45 grams triamcinolone acetonide 0.1 % 1 appl topical BID #15 grams 04/22/23 topical cream Allergies Allergy/AdvReac Type Severity Reaction Status Date / Time celecoxib [From CELEBREX] Allergy Unknown RASH Verified 01/29/23 14:03 Latex, Natural Rubber Allergy Unknown Rash Verified 01/29/23 14:03 ibuprofen [IBUPROFEN] AdvReac Intermediate RASH Verified 01/29/23 14:03 Review of Systems 2 Constitutional: Constitutional: Denies chills and Denies fever(s) Cardiovascular: Cardiovascular: Denies chest pain Integumentary/Breasts: Skin/Breast: Reports pruritus, Reports erythema and Reports rash PMFSH Past Medical History Onset Date is defined in the Problem List Problems that require an onset date and time if occurred within 24 hrs of arrival to the ED Aortic Dissection and Rupture; Neurologic impairment; Cardiopulmonary Arrest; Endotracheal Intubation; Insertion or Replacement of Mechanical Circulatory Assist Device Medical History Respiratory failure Interstitial lung disease Seasonal allergies Diarrhea Neuropathy Asthma Hypercholesteremia GERD (gastroesophageal reflux disease) Thyroid activity decreased Hypertension Surgical History Hx of cataract surgery H/O: hysterectomy History of cholecystectomy Family History Family History Mother Asthma Father No problems noted. 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 Housing: Apartment Housing Other:: [employer] Do you presently have visiting nurse or other home services: No Unable to assess alcohol history related to: Unknown Alcohol intake: never Patient Tobacco Use Status: Never used Tobacco Advance Directives: No Advance Directives Information Provided: No service: No Current occupational status: retired Physical Exam ED Vital Signs: Vital Signs - 24 hr 04/22/23 00:59 Temperature 97.9 F Pulse Rate 67 Respiratory Rate 18 Blood Pressure 113/42 L Pulse Oximetry 96 Oxygen Delivery Method Nasal Cannula BMI result Body Mass Index 52.7 Const General: healthy appearing, comfortable, no acute distress, alert and awake Nutritional Appearance: well nourished Orientation/consciousness: patient oriented x3 HENMT Head: Yes normocephalic and Yes atraumatic Eyes Eyelids: Yes eyelids normal Conjunctivae: conjunctivae normal Sclerae: sclerae normal Corneas: corneas normal Pupils: Equal, round and reactive pupils present EOM: EOMs intact bilaterally Neck Neck: Yes full ROM Resp Effort & Inspection: normal respiratory effort, able to speak in complete sentences and not labored Skin Other: Patient has an erythematous macular rash with petechiae to the right lower extremity consistent with vasculitis General skin exam: elasticity normal Neuro General: patient oriented x3 Cranial nerves: Yes Equal, round and reactive pupils present and Yes Bilaterally intact EOM present Cognition (Neuro): normal cognition Extrem Other: Moving all extremities well without any obvious deformities Medical Decision Making Medical Decision Making MDM Narrative: Patient's rash is not consistent with cellulitis and therefore I do not feel she needs more antibiotics. Her rash is more consistent with vasculitis will therefore treat with warm compresses and topical steroids. Her workup was reviewed, she has no leukocytosis or left shift. She has no fever. This supports the diagnosis of vasculitis over cellulitis. Differential Diagnosis Differential Diagnoses: The differential diagnosis associated with the presentation includes Vasculitis Acute rash Dermatitis Cellulitis Lab Data 04/22/23 01:29 04/22/23 01:12 Labs: Lab Results 04/22/23 04/22/23 Range/Units 01:12 01:29 WBC 9.1 (4.8-10.8) X10*3/uL RBC 4.09 L (4.20-5.50) X10*6/uL Hgb 11.7 L (12.0-16.0) g/dl Hct 35.1 L (37.0-47.0) % MCV 85.8 (80.0-98.0) fL MCH 28.6 (27.0-33.0) pg MCHC 33.3 (31.0-35.0) g/dl RDW 13.9 (11.0-16.0) % Plt Count 167 D (160-400) X10*3/uL MPV 11.6 (9.4-12.3) fL Immature Gran % (Auto) 0.4 (0.0-0.4) % Neut % (Auto) 62.9 (45-73) % Lymph % (Auto) 22.9 (20-40) % [place] % (Auto) 9.1 (2-11) % Eos % (Auto) 4.0 (0-4) % Baso % (Auto) 0.7 (0-2) % Lymph # (Auto) 2.1 (1.2-4.9) X10*3/uL [place] # (Auto) 0.8 (0.1-1.2) X10*3/uL Eos # (Auto) 0.4 (0.0-0.4) X10*3/uL Baso # (Auto) 0.1 (0.0-0.2) X10*3/uL Abs Immat Gran (auto) 0.04 H (0.00-0.03) X10*3/uL Absolute Neuts (auto) 5.7 (2.0-8.3) x10*3/uL Absolute Nucleated RBC 0.000 (0.0-0.012) X10*3/uL Nucleated RBC % (auto) 0.0 (0.0-0.2) /100WBC Sodium 140 (135-145) mmol/L Potassium 4.2 (3.3-5.1) mmol/L Chloride 101 (96-108) mmol/L Carbon Dioxide 26 (22-29) mmol/L Anion Gap 17 (12-20) BUN 25 H (9-16) mg/dL Creatinine 1.29 (0.5-1.4) mg/dL Estim Creat Clear Calc 58.7 Estimated GFR 41 Random Glucose 112 (60-115) mg/dL Calcium 8.6 (8.4-10.2) mg/dL Total Bilirubin 0.6 (0.0-1.0) mg/dL AST 19 (5-31) U/L ALT 11 (0-31) U/L Alkaline Phosphatase 91 (39-117) U/L Total Protein 6.9 (6.5-8.0) g/dL Albumin 3.6 (3.5-5.0) g/dL Discharge Plan Discharge Clinical Impression: Vasculitis Patient Disposition: Home, Self-Care Instructions: Acute Rash (ED) Additional Instructions: Your rash is not consistent with a bacterial infection or cellulitis Your rash is more consistent with inflammation called vasculitis Apply warm compresses twice a day Apply the topical steroid twice daily for 7 days Follow-up with your primary doctor Prescriptions: New triamcinolone acetonide 0.1 % cream 1 appl topical BID Qty: 15 0RF No Action fluticasone propion-salmeterol [Advair Diskus] 250-50 mcg/dose blister with device 1 ea PO BID Qty: 60 3RF atorvastatin 10 mg tablet 1 tab PO BEDTIME carvedilol 6.25 mg tablet 1 tab PO BIDWM cetirizine 10 mg tablet 1 tab PO DAILY magnesium oxide 400 mg (241.3 mg magnesium) tablet 1 tab PO DAILY levothyroxine 50 mcg tablet 1 tab PO DAILY@0600 ferrous sulfate 325 mg (65 mg iron) tablet 1 tab PO DAILY montelukast 10 mg tablet 1 tab PO BEDTIME pregabalin 225 mg capsule 1 cap PO BID furosemide 40 mg tablet 80 mg PO DAILY fluconazole 150 mg tablet 150 mg PO QWEEK 14 Days Qty: 2 0RF miconazole nitrate [Monistat 7] 2 % cream 1 appful vaginal BEDTIME 7 Days Qty: 45 0RF losartan 25 mg tablet 25 mg PO DAILY dexlansoprazole [Dexilant] 60 mg capsule,biphase delayed releas 60 mg PO DAILY@0630
--- NOTE | 2023-04-22 02:32 | PC.NURSE ---
awaiting ambulance to transport home
== END 2023-04-22 03:39 | disposition home or self-care (01) ==
PROVIDERS: Emergency Provider Internal Medicine; PCP Internal Medicine
DX: R21 Rash and other nonspecific skin eruption (principal); E78.00 Pure hypercholesterolemia, unspecified; I77.6 Arteritis, unspecified; Z79.899 Other long term (current) drug therapy
CPT/HCPCS: 36415; 80053; 85025; 99283; 99284

== ENCOUNTER 2023-05-17 21:41 | Emergency (ER) | payer MEDICARE, MEDICAID, SELFPAY ==
--- NOTE | ~2023-05-17 | CT_ITS ---
EXAMINATION: CT ABDOMEN AND PELVIS WITHOUT CONTRAST CLINICAL INFORMATION: Right lower quadrant abdominal pain. COMPARISON: CT abdomen and pelvis from 01/21/2019.. TECHNIQUE: Multidetector volumetric imaging was performed from the lung bases to the pubic without contrast. Sagittal and coronal reformatted images were obtained on the technologist workstation. This CT examination was performed using dose optimization techniques as appropriate, variously including the following: *Automated exposure control. *Adjustment of mA and/or kV according to patient size (this includes techniques or standardized protocols for targeted exams where dose is matched to indication/reason for exam; i.e. extremities or head). *Use of iterative reconstruction technique. DLP: 1484 mGy-cm FINDINGS: LUNG BASES: No abnormalities of the visualized lung bases. No demonstrated abnormalities of the visualized cardiac structures. ABDOMEN/PELVIS: Liver, Biliary Ducts, and Gallbladder: The unenhanced liver is normal in size and attenuation without focal hepatic lesions or biliary ductal dilatation. Changes of prior cholecystectomy. Pancreas: Moderate fatty atrophy of the proximal body and head of the pancreas. Otherwise, the pancreas is normal in appearance. Adrenal Glands: The adrenal glands are normal in appearance. Spleen: The spleen is normal in appearance. Kidneys and Ureters: The unenhanced kidneys are normal in size without evidence of nephrolithiasis or hydronephrosis. No ureterolithiasis or hydroureter. Urinary Bladder: The urinary bladder is partially distended without focal wall thickening. No bladder calculi are demonstrated. 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 Otherwise, the stomach is decompressed and therefore not well evaluated on this exam. The small bowel is of normal caliber. Moderate sigmoid diverticulosis. There is mild to moderate fat stranding surrounding a 4 cm segment of the sigmoid colon with moderate wall edema. Pericolonic fat stranding this region appears to surround a patulous inflamed diverticula along the medial margin of the colon. No demonstrated discrete extraluminal fluid collection or free gas. The remainder of the colon is normal in appearance without focal wall thickening or pericolonic inflammatory change. Normal appendix. Genitourinary: No demonstrated adnexal soft tissue masses. Intra-abdominal and Retroperitoneal Spaces: No intra-abdominal free fluid collections or gas. No mesenteric, retroperitoneal, or inguinal lymphadenopathy. VASCULATURE: The abdominal aorta is of normal contour and caliber with moderate calcific atherosclerotic disease MUSCULOSKELETAL: Advanced degenerative arthropathy of the left shoulder joint with [id number] appearance and subchondral pitting in the superior acetabulum and femoral head. Moderate degenerative arthropathy of the right hip joint. Advanced multilevel degenerative changes of the spine. Mild left convex curvature of the lumbar spine. Bridging anterior osteophytosis of the lower thoracic spine to the level of L3. Advanced degenerative disc disease from L3-S1. Moderate degenerative disc disease at all additional levels. Prominent disc herniations with posterior osseous ridging from L2-S1. There appears to be severe spinal canal stenoses at L2-L3, L3-L4, and L5-S1. Moderate to severe spinal canal stenosis at L4-L5. Moderate to severe neural foraminal stenoses from L1-S1. No suspicious lytic or sclerotic osseous lesions demonstrated. No soft tissue masses demonstrated. CT/CT abdomen pelvis wo IV con IMPRESSION: 1. Sigmoid diverticulitis. No demonstrated discrete extraluminal fluid collection or free gas. 2. No additional acute abdominal abnormalities. 3. 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 4. 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 Most notably on this limited exam without intrathecal contrast, there appears to be severe spinal canal stenoses at L2-L3, L3-L4, and L5-S1. Moderate to severe neural foraminal stenoses from L1-S1.
[2023-05-17 22:00] VITALS: BP 114/41; BP 118/72; PULSE 69; PULSE 72; RESP 16; TEMP 36.6; O2SAT 100; BMI 51.7
--- NOTE | 2023-05-17 22:04 | ED.FEMALEGU ---
HPI - Female Genitourinary General Chief complaint: Urogenital-Female Stated complaint: PAINFUL URINATION,H/O UTI 1 MONTH AGO PER EMS Time Seen by Provider: 05/17/23 22:04 Source: patient Mode of arrival: ambulatory Limitations: no limitations History of Present Illness HPI Narrative: Patient history of sleep apnea hypertension asthma severe arthritis walks with walker complaining of pain in right lower abdomen and suprapubic area with dysuria for last few days no hematuria no history of kidney stone pain is more in right lower abdomen does have history of frequent UTI no fever no chills Related Data Home Medications Medication Instructions Recorded Confirmed carvedilol 6.25 mg tablet 1 tab PO BIDWM 03/13/21 11/21/22 cetirizine 10 mg tablet 1 tab PO DAILY 03/13/21 11/21/22 ferrous sulfate 325 mg (65 mg 1 tab PO DAILY 03/13/21 11/21/22 iron) tablet levothyroxine 50 mcg tablet 1 tab PO DAILY@0600 03/13/21 11/21/22 magnesium oxide 400 mg (241.3 mg 1 tab PO DAILY 03/13/21 11/21/22 magnesium) tablet montelukast 10 mg tablet 1 tab PO BEDTIME 03/13/21 11/21/22 pregabalin 225 mg capsule 1 cap PO BID 03/13/21 11/21/22 atorvastatin 10 mg tablet 1 tab PO BEDTIME 03/14/21 11/21/22 dexlansoprazole 60 mg 60 mg PO DAILY@0630 06/07/21 11/21/22 capsule,biphase delayed release (Dexilant) losartan 25 mg tablet 25 mg PO DAILY 06/07/21 11/21/22 furosemide 40 mg tablet 80 mg PO DAILY 10/02/22 11/21/22 Previous Rx's Medication Instructions Recorded fluconazole 150 mg tablet 150 mg PO QWEEK 2 weeks #2 tabs 03/28/23 miconazole nitrate 2 % vaginal 1 appful vaginal BEDTIME 7 days 03/28/23 cream (Monistat 7) #45 grams triamcinolone acetonide 0.1 % 1 appl topical BID #15 grams 04/22/23 topical cream fluticasone furoate 200 1 inh inhalation DAILY copd 30 05/02/23 mcg-vilanterol 25 mcg/dose days #60 ea inhalation powder (Breo Ellipta) ciprofloxacin HCl 500 mg tablet 500 mg PO BID #20 tabs 05/18/23 (Cipro) metronidazole 500 mg tablet 500 mg PO BID 10 days #20 tabs 05/18/23 tramadol 50 mg tablet 50 mg PO Q6H PRN pain #20 tabs 05/18/23 Allergies Allergy/AdvReac Type Severity Reaction Status Date / Time celecoxib [From CELEBREX] Allergy Unknown RASH Verified 01/29/23 14:03 Latex, Natural Rubber Allergy Unknown Rash Verified 01/29/23 14:03 ibuprofen [IBUPROFEN] AdvReac Intermediate RASH Verified 01/29/23 14:03 Review of Systems Review of Systems: Yes all other systems are reviewed and are negative [facility] Past Medical History Medical History Respiratory failure Interstitial lung disease Seasonal allergies Diarrhea Neuropathy Asthma Hypercholesteremia GERD (gastroesophageal reflux disease) Thyroid activity decreased Hypertension Surgical History Hx of cataract surgery H/O: hysterectomy History of cholecystectomy Family History Family History Mother Asthma Father No problems noted. 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 Housing: Apartment Housing Other:: [employer] heights Do you presently have visiting nurse or other home services: No Unable to assess alcohol history related to: Unknown Alcohol intake: never Patient Tobacco Use Status: Never used Tobacco Smoked in Last 30 Days: No Use of substances other than those prescribed or required for medical reasons: No Advance Directives: No Advance Directives Information Provided: Yes service: No Current occupational status: retired Physical Exam Vital Signs: Vital Signs: Last Vital Signs Temp 97.9 F 05/17/23 22:00 Pulse 69 05/17/23 22:00 Resp 16 05/17/23 22:00 BP 114/41 L 05/17/23 22:00 Pulse Ox 100 05/17/23 22:00 O2 Del Method Nasal Cannula 05/17/23 22:00 Oxygen Flow Rate 3 05/17/23 22:00 BMI result Body Mass Index 51.7 Appearance: Alert. Oriented X3. No acute distress. obese Eyes: No pallor or icterus ENT: Pharynx normal. Oral Mucosa moist Neck: Normal inspection. Neck supple. CVS: Normal heart rate and rhythm. Pulses normal. Respiratory: No respiratory distress. Equal air entry bilateral, no wheezing/rales/rhonchi Abdomen: Soft , deep tenderness suprapubic and right lower abdomen no guarding or rebound tenderness Bowel sounds are present, no mass palpable, no CVA tenderness Skin: Skin warm and dry. Normal skin color. Normal skin turgor. Extremities: No lower extremity edema. No calf tenderness Neuro: Oriented X 3. Medications Administered Discontinued Medications Generic Name Dose Route Start Last Admin Trade Name Freq PRN Reason Stop Dose Admin Sodium Chloride 1,000 mls @ 999 mls/hr 05/17/23 22:20 05/17/23 23:38 Ns IV 05/17/23 23:20 999 mls/hr .Q1H1M ONE Administration Piperacillin Sod/Tazobactam 50 mls @ 100 mls/hr 05/17/23 23:42 05/17/23 23:48 Sod 3.375 gm/ Sodium Chloride IV 05/18/23 00:11 100 mls/hr ONCE ONE Administration Morphine Sulfate 4 mg 05/17/23 22:22 05/17/23 23:43 Morphine Sulfate 4 Mg/Ml Cartridge IVPUSH 05/17/23 22:23 4 mg ONCE ONE Administration Protocol Ondansetron HCl 4 mg 05/17/23 22:22 05/17/23 22:54 Ondansetron Hcl 4 Mg/2 Ml Vial IVPUSH 05/17/23 22:23 4 mg ONCE ONE Administration Medical Decision Making Medical Decision Making [facility] Narrative: Patient with lower abdominal pain workup showed sigmoid diverticulitis uncomplicated was given IV antibiotics in the ER will discharge patient home on Flagyl and Cipro advised to follow with surgeon Differential Diagnosis Differential Diagnoses: The differential diagnosis associated with the presentation includes Appendicitis/UTI/kidney stone/diverticulitis Lab Data [facility] Lab Attestation statement: I reviewed the patient's lab results. 05/17/23 22:53 05/17/23 22:53 Labs: Lab Results 05/17/23 05/17/23 Range/Units 22:53 23:20 WBC 10.9 H (4.8-10.8) X10*3/uL RBC 4.05 L (4.20-5.50) X10*6/uL Hgb 11.7 L (12.0-16.0) g/dl Hct 35.1 L (37.0-47.0) % MCV 86.7 (80.0-98.0) fL MCH 28.9 (27.0-33.0) pg MCHC 33.3 (31.0-35.0) g/dl RDW 14.0 (11.0-16.0) % Plt Count 227 D (160-400) X10*3/uL MPV 11.0 (9.4-12.3) fL Immature Gran % (Auto) 0.3 (0.0-0.4) % Neut % (Auto) 76.3 H (45-73) % Lymph % (Auto) 13.1 L (20-40) % [place] % (Auto) 8.7 (2-11) % Eos % (Auto) 1.4 (0-4) % Baso % (Auto) 0.2 (0-2) % Lymph # (Auto) 1.4 (1.2-4.9) X10*3/uL [place] # (Auto) 1.0 (0.1-1.2) X10*3/uL Eos # (Auto) 0.2 (0.0-0.4) X10*3/uL Baso # (Auto) 0.0 (0.0-0.2) X10*3/uL Abs Immat Gran (auto) 0.03 (0.00-0.03) X10*3/uL Absolute Neuts (auto) 8.3 (2.0-8.3) x10*3/uL Absolute Nucleated RBC 0.000 (0.0-0.012) X10*3/uL Nucleated RBC % (auto) 0.0 (0.0-0.2) /100WBC Sodium 140 (135-145) mmol/L Potassium 4.0 (3.3-5.1) mmol/L Chloride 96 (96-108) mmol/L Carbon Dioxide 34 H (22-29) mmol/L Anion Gap 14 (12-20) BUN 28 H (9-16) mg/dL Creatinine 1.18 (0.5-1.4) mg/dL Estim Creat Clear Calc 63.4 Estimated GFR 45 Random Glucose 105 (60-115) mg/dL Calcium 8.7 (8.4-10.2) mg/dL Total Bilirubin 0.7 (0.0-1.0) mg/dL AST 13 (5-31) U/L ALT 7 (0-31) U/L Alkaline Phosphatase 87 (39-117) U/L Total Protein 6.9 (6.5-8.0) g/dL Albumin 3.9 (3.5-5.0) g/dL Urine Color Yellow Urine Appearance Clear Urine pH 6.0 (5.0-9.0) Ur Specific [place] 1.010 (1.005-1.025) Urine Protein Negative (Neg-Trace) mg/dL Urine Glucose (UA) Negative (Negative) mg/dL Urine Ketones Negative (Negative) mg/dL Urine Blood Negative (Negative) Urine Nitrite Negative (Negative) Ur Leukocyte Esterase Negative (Negative) Urine RBC 0-2 (0-2) /HPF Urine WBC 0-5 (0-5) /HPF Ur Squamous Epith Cells 0-2 (0-2) /HPF Urine Bacteria None Seen (None Seen) Hyaline Casts 0-2 (0-2) /LPF Independent Interpretation I performed an independent interpretation of an: CT Scan Radiology Impression Discussion of test interpretation with radiology: I have reviewed the radiologist's reading. Radiologist Impression: CT/CT abdomen pelvis wo IV con IMPRESSION: 1. Sigmoid diverticulitis. No demonstrated discrete extraluminal fluid collection or free gas. 2. No additional acute abdominal abnormalities. 3. 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 4. 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 Most notably on this limited exam without intrathecal contrast, there appears to be severe spinal canal stenoses at L2-L3, L3-L4, and L5-S1. Moderate to severe neural foraminal stenoses from L1-S1. Discharge Plan Discharge Clinical Impression: Acute diverticulitis Patient Disposition: Home, Self-Care Instructions: Diverticulitis (ED) Additional Instructions: Clear liquids advanced as tolerated Take antibiotic as prescribed Pain medication as prescribed Report to the ER if worsening of the pain/fever/blood in stool Prescriptions: New ciprofloxacin HCl [Cipro] 500 mg tablet 500 mg PO BID Qty: 20 0RF metronidazole 500 mg tablet 500 mg PO BID 10 Days Qty: 20 0RF tramadol 50 mg tablet 50 mg PO Q6H PRN (Reason: pain) Qty: 20 0RF No Action fluticasone furoate-vilanterol [Breo Ellipta] 200-25 mcg/dose blister with device 1 inh inhalation DAILY 30 Days Qty: 60 3RF atorvastatin 10 mg tablet 1 tab PO BEDTIME carvedilol 6.25 mg tablet 1 tab PO BIDWM cetirizine 10 mg tablet 1 tab PO DAILY magnesium oxide 400 mg (241.3 mg magnesium) tablet 1 tab PO DAILY levothyroxine 50 mcg tablet 1 tab PO DAILY@0600 ferrous sulfate 325 mg (65 mg iron) tablet 1 tab PO DAILY montelukast 10 mg tablet 1 tab PO BEDTIME pregabalin 225 mg capsule 1 cap PO BID furosemide 40 mg tablet 80 mg PO DAILY fluconazole 150 mg tablet 150 mg PO QWEEK 14 Days Qty: 2 0RF miconazole nitrate [Monistat 7] 2 % cream 1 appful vaginal BEDTIME 7 Days Qty: 45 0RF triamcinolone acetonide 0.1 % cream 1 appl topical BID Qty: 15 0RF losartan 25 mg tablet 25 mg PO DAILY dexlansoprazole [Dexilant] 60 mg capsule,biphase delayed releas 60 mg PO DAILY@0630 Referrals: Jw Martinez MD [Physician] - 2 weeks
[2023-05-17] MEDS: ondansetron HCL 4 MG/2 ML VIAL IVPUSH (22:54)
[2023-05-17 22:57] LABS: MANUAL DIFF FLAG NO
[2023-05-17 22:58] LABS: Basophils Percent Auto 0.2 % (0-2); Eosinophils Absolute Auto 0.2 X10*3/uL (0.0-0.4); Eosinophils Percent Auto 1.4 % (0-4); Hematocrit 35.1 % (37.0-47.0); Hemoglobin 11.7 g/dl (12.0-16.0); Imm Gran Abs Auto 0.03 X10*3/uL (0.00-0.03); Imm Gran Pct Auto 0.3 % (0.0-0.4); Lymphocytes Absolute Auto 1.4 X10*3/uL (1.2-4.9); Lymphocytes Percent Auto 13.1 % (20-40); Mean Corpuscular HGB Conc 33.3 g/dl (31.0-35.0); Mean Corpuscular Hemoglobin 28.9 pg (27.0-33.0); Mean Corpuscular Volume 86.7 fL (80.0-98.0); Monocytes Percent Auto 8.7 % (2-11); Neutrophils Absolute Auto 8.3 x10*3/uL (2.0-8.3); Neutrophils Percent Auto 76.3 % (45-73); Platelet Count 227 X10*3/uL (160-400); Red Blood Count 4.05 X10*6/uL (4.20-5.50); White Blood Count 10.9 X10*3/uL (4.8-10.8)
[2023-05-17 23:11] LABS: Alanine Aminotransferase 7 U/L (0-31); Albumin Level 3.9 g/dL (3.5-5.0); Alkaline Phosphatase 87 U/L (39-117); Anion Gap 14 (12-20); Aspartate Amino Transferase 13 U/L (5-31); Bilirubin Total 0.7 mg/dL (0.0-1.0); Blood Urea Nitrogen 28 mg/dL (9-16); Calcium 8.7 mg/dL (8.4-10.2); Carbon Dioxide 34 mmol/L (22-29); Chloride 96 mmol/L (96-108); Creatinine Clr Calc Pharmacy 63.4; Estimated Glomerular Filt Rate 45; Glucose Random 105 mg/dL (60-115); Sodium 140 mmol/L (135-145); Total Protein 6.9 g/dL (6.5-8.0)
[2023-05-17 23:26] LABS: Appearance Urine Clear; Color Urine Yellow; Glucose Urine UA Negative (Negative); Leukocyte Esterase Urine Negative (Negative); Nitrite Urine Negative (Negative); Urine Blood Negative (Negative); Urine Ketones Negative (Negative); Urine Protein Negative (Neg-Trace)
[2023-05-17 23:33] LABS: Bacteria Urine None Seen (None Seen); Hyaline Casts Urine 0-2 /LPF (0-2); RBC Urine 0-2 /HPF (0-2); Squamous Epithelial Cell Urine 0-2 /HPF (0-2); WBC Urine 0-5 /HPF (0-5)
[2023-05-17] MEDS: 0.9 % Sodium Chloride 1,000 ML 999 ML IV (23:38)
[2023-05-17] MEDS: Morphine Sulfate 4 MG/ML CARTRIDGE IVPUSH (23:43)
[2023-05-17] MEDS: Piperacillin Sodium/Tazobactam 3.375 GM in 0.9 % Sodium Chloride 50 ML IV (23:48)
--- NOTE | 2023-05-18 00:27 | PC.NURSE ---
PT laying in bed, eyes closed & appears to be sleeping. Resp even and unlabored. [place] and NS running. Plan of care ongoing.
--- NOTE | 2023-05-18 00:59 | MHC.EDTECH ---
call out to mamie at 0059 to book transport for pt, estimated eta given was within the hour
== END 2023-05-18 02:00 | disposition home or self-care (01) ==
PROVIDERS: Emergency Provider Internal Medicine
DX: K57.32 Diverticulitis of large intestine without perforation or abscess without bleeding (principal); R30.0 Dysuria; R10.31 Right lower quadrant pain; Z79.899 Other long term (current) drug therapy
CPT/HCPCS: 36415; 74176; 80053; 81001; 85025; 96361; 96374; 96375; 99284; J2270; J2405; J2543

== ENCOUNTER 2023-05-31 14:12 | Outpatient (AMB) | payer MEDICARE, MEDICAID, SELFPAY ==
--- NOTE | 2023-05-31 14:23 | MHC.OFFVIS ---
Intake Vital Signs 05/31/23 14:33 Height 5 ft 5 in Weight 310 lb 13.628 oz BMI 51.7 BP 112/72 Blood Pressure Location Lt brachial Position Sitting Intake Visit Reasons: acute Diverticulitis Intake Note: just finished antibiotics yesterday, continued abdominal pain 11/16, nausea, diarrhea, denies constipation, vomit, symptoms since ER visit Allergies celecoxib [From CELEBREX] Allergy (Unknown, Verified 05/31/23 14:24) RASH Latex, Natural Rubber Allergy (Unknown, Verified 05/31/23 14:24) Rash ibuprofen [IBUPROFEN] Adverse Reaction (Intermediate, Verified 05/31/23 14:24) RASH Medication List - Last Reconciled 05/31/23 by Jw Martinez MD atorvastatin 1 tab PO BEDTIME carvedilol 1 tab PO BIDWM cetirizine 1 tab PO DAILY ciprofloxacin HCl (Cipro) 500 mg PO BID dexlansoprazole (Dexilant) 60 mg PO DAILY@0630 ferrous sulfate 1 tab PO DAILY fluconazole 150 mg PO QWEEK 2 weeks fluticasone furoate-vilanterol 200-25 mcg/dose (Breo Ellipta) 1 inh inhalation DAILY 30 days furosemide 80 mg PO DAILY levothyroxine 1 tab PO DAILY@0600 losartan 25 mg PO DAILY magnesium oxide 1 tab PO DAILY metronidazole 500 mg PO BID 10 days miconazole nitrate 2% (Monistat 7) 1 appful vaginal BEDTIME 7 days montelukast 1 tab PO BEDTIME pregabalin 1 cap PO BID tramadol 50 mg PO Q6H PRN triamcinolone acetonide 0.1% 1 appl topical BID HPI HPI Comments History of Present Illness Details 72-year-old female patient presenting with complaints of abdominal pain mainly in the right lower quadrant and suprapubic region previously evaluated emergency department on 05/17/2023. Her past history is significant for sleep apnea, hypertension, asthma, and severe arthritis. She presents to the office today on stretcher from home. While in the emergency department she was noted to have tenderness in the right lower quadrant and left lower quadrant. Workup with CT abdomen and pelvis revealed an area of uncomplicated sigmoid diverticulitis. She was discharged home on Cipro and Flagyl for 10 days. She returns today with continued abdominal pain mainly in the right lower quadrant. She denies any fever or chills. Her bowels are loose but passing on a daily basis. She denies any new symptoms. [facility] Medical History Respiratory failure Interstitial lung disease Seasonal allergies Diarrhea Neuropathy Asthma Hypercholesteremia GERD (gastroesophageal reflux disease) Thyroid activity decreased Hypertension Surgical History Hx of cataract surgery H/O: hysterectomy History of cholecystectomy Family History Mother Asthma Father No problems noted. 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 Housing: Apartment Housing Other:: [employer] heights Do you presently have visiting nurse or other home services: No Unable to assess alcohol history related to: Unknown Alcohol intake: never Patient Tobacco Use Status: Never used Tobacco service: No Current occupational status: retired Review of Systems Const All systems reviewed & are unremarkable except as noted in HPI and below Physical Exam Vital Signs: Last Vital Signs BP 112/72 05/31/23 14:33 BMI result Body Mass Index 51.7 Const General: no acute distress Nutritional Appearance: obese Orientation/consciousness: patient oriented x3 Limitations: other limitations (In stretcher) HEENT Head: Yes normocephalic and Yes atraumatic Resp Effort & Inspection: normal respiratory effort GI Inspection: Yes normal to inspection and Yes Abdominal panniculus present Palpation (GI): Soft to palpation, Tenderness to palpation present (GI) in the RLQ; with no rebound tenderness and Rovsing's sign negative, no guarding and not rigid Percussion: Yes normal to percussion Auscultation: normal bowel sounds Rectal Exam - Female: deferred Neuro General: patient oriented x3 Extrem General: Yes edema Assessment & Plan Assessment & Plan (1) Acute diverticulitis: Code(s): K57.92 - Diverticulitis of intestine, part unspecified, without perforation or abscess without bleeding Plan 72-year-old female patient presenting for follow-up after recent ER visit for acute sigmoid diverticulitis without complications. She returns today with continued abdominal pain after completion of her antibiotics. CT abdomen and pelvis was reviewed and confirms an area of mild sigmoid diverticulitis. No other suspicious findings are identified. I recommended continuing the antibiotic for another 10 days. She will return approximately 2 weeks for follow-up examination. Medications: Refilled metronidazole 500 mg PO BID 10 days 20 tabs 0RF ciprofloxacin HCl (Cipro) 500 mg PO BID 20 tabs 0RF Coding Level of Care Code New Pt Level 4 (96403) Diagnoses Acute diverticulitis K57.92
[2023-05-31 14:33] VITALS: BP 112/72; BMI 51.7
== END 2023-05-31 14:39 | disposition home or self-care (01) ==
PROVIDERS: Visit Provider Surgery
DX: K57.92 Diverticulitis of intestine, part unspecified, without perforation or abscess without bleeding (principal)
CPT/HCPCS: 99204; 99214

== ENCOUNTER 2023-06-02 01:09 | Inpatient (IN) | payer MEDICARE, MEDICAID, SELFPAY ==
[2023-06-02] VITALS (8 sets, daily range): BP systolic 98–138; BP diastolic 36–75; PULSE 52–84; RESP 12–20; TEMP 36.1–36.4; O2SAT 97–100; BMI 54.0; BMI 54.9
--- NOTE | ~2023-06-02 | CT_ITS ---
EXAMINATION: CT ABDOMEN AND PELVIS WITHOUT CONTRAST CLINICAL INFORMATION: Diverticulitis COMPARISON: 05/17/2023 TECHNIQUE: Multidetector volumetric imaging was performed from the superior aspect of the liver through the pubic symphysis. Sagittal and coronal reformatted images were obtained on the technologist's workstation. This CT examination was performed using dose optimization techniques as appropriate, variously including the following: *Automated exposure control *Adjustment of mA and/or kV according to patient size (this includes techniques or standardized protocols for targeted exams where dose is matched to indication/reason for exam; i.e. extremities or head) *Use of iterative reconstruction technique DLP: 1317 mGy-cm FINDINGS: LUNG BASES: The visualized lung bases are unremarkable. LIVER, GALLBLADDER, AND BILIARY TREE: Liver is of normal attenuation slightly enlarged without intrahepatic masses or ductal dilatation. Gallbladder is surgically absent. PANCREAS: Unremarkable. SPLEEN: Unremarkable. ADRENAL GLANDS: Unremarkable. KIDNEYS AND URETERS: The kidneys are normal in size, shape, and attenuation. No hydronephrosis, hydroureter, or calculi seen. No perinephric stranding. BLADDER: Unremarkable. GASTROINTESTINAL TRACT: There are changes of diverticulosis and mild colitis in the sigmoid colon with mesenteric haziness but no evidence of abscess formation or perforation. When compared to the previous examination of May 17 there are improvement of inflammatory changes. ABDOMINAL WALL: No significant hernia is appreciated. LYMPH NODES: Normal. VASCULAR: Abdominal aorta is not dilated, calcified. PELVIC VISCERA: Patient is status post hysterectomy. OSSEOUS STRUCTURES: There is stable multilevel degenerative changes in lumbar spine and hip joints. CT/CT abdomen pelvis wo IV con IMPRESSION: 1. Mild diverticulitis in the sigmoid colon with improvement of inflammatory changes since the previous examination. No evidence of abscess formation or perforation. 2. Status post cholecystectomy and hysterectomy. 3. Mild hepatomegaly. 4. Degenerative changes in lumbar spine and hip joints. Fleischner guidelines were followed.
[2023-06-02 01:33] LABS: MANUAL DIFF FLAG NO
[2023-06-02 01:34] LABS: Basophils Absolute Auto 0.1 X10*3/uL (0.0-0.2); Basophils Percent Auto 0.6 % (0-2); Eosinophils Absolute Auto 0.3 X10*3/uL (0.0-0.4); Eosinophils Percent Auto 3.6 % (0-4); Hematocrit 33.9 % (37.0-47.0); Hemoglobin 11.3 g/dl (12.0-16.0); Imm Gran Abs Auto 0.01 X10*3/uL (0.00-0.03); Imm Gran Pct Auto 0.1 % (0.0-0.4); Lymphocytes Absolute Auto 1.9 X10*3/uL (1.2-4.9); Lymphocytes Percent Auto 21.8 % (20-40); Mean Corpuscular HGB Conc 33.3 g/dl (31.0-35.0); Mean Corpuscular Volume 87.1 fL (80.0-98.0); Mean Platelet Volume 10.9 fL (9.4-12.3); Monocytes Absolute Auto 0.8 X10*3/uL (0.1-1.2); Monocytes Percent Auto 8.8 % (2-11); Neutrophils Absolute Auto 5.6 x10*3/uL (2.0-8.3); Neutrophils Percent Auto 65.1 % (45-73); Platelet Count 262 X10*3/uL (160-400); Red Blood Count 3.89 X10*6/uL (4.20-5.50); Red Cell Distribution Width 14.2 % (11.0-16.0); White Blood Count 8.6 X10*3/uL (4.8-10.8)
[2023-06-02 02:37] LABS: Alanine Aminotransferase 8 U/L (0-31); Albumin Level 3.5 g/dL (3.5-5.0); Alkaline Phosphatase 79 U/L (39-117); Anion Gap 12 (12-20); Aspartate Amino Transferase 13 U/L (5-31); Bilirubin Total 0.5 mg/dL (0.0-1.0); Blood Urea Nitrogen 23 mg/dL (9-16); Calcium 8.2 mg/dL (8.4-10.2); Carbon Dioxide 34 mmol/L (22-29); Chloride 99 mmol/L (96-108); Creatinine Clr Calc Pharmacy 61.4; Estimated Glomerular Filt Rate 44; Glucose Random 111 mg/dL (60-115); Lipase 25 U/L (8-78); Potassium 4.1 mmol/L (3.3-5.1); Sodium 141 mmol/L (135-145); Total Protein 6.3 g/dL (6.5-8.0)
--- NOTE | 2023-06-02 07:32 | ED.ABDPAIN ---
HPI - Abdominal Pain General Chief Complaint: Abdominal Pain Stated Complaint: ABD PAIN Time Seen by Provider: 06/02/23 07:08 Source: patient Mode of arrival: ambulatory Limitations: no limitations History of Present Illness HPI narrative: 72-year-old female history of asthma, HTN, COPD, MISSY, diverticular disease. Came in for evaluation of abdominal pain that started 2 weeks ago patient was started on antibiotic for treating diverticulitis no improvement after finished course of antibiotic, another course of antibiotic with just started yesterday with persistent of lower abdominal pain mostly suprapubic, associated with loose stool have dark-colored stool because of supplemental oral iron that patient has been taking for a while now. No dysuria, no frequency urination, no fever, no vaginal discharge. Last bowel movement was loose this morning. Past surgical history significant for cholecystectomy and hysterectomy. Related Data Home Medications Medication Instructions Recorded Confirmed carvedilol 6.25 mg tablet 1 tab PO BIDWM 03/13/21 05/31/23 cetirizine 10 mg tablet 1 tab PO DAILY 03/13/21 05/31/23 ferrous sulfate 325 mg (65 mg 1 tab PO DAILY 03/13/21 05/31/23 iron) tablet levothyroxine 50 mcg tablet 1 tab PO DAILY@0600 03/13/21 05/31/23 magnesium oxide 400 mg (241.3 mg 1 tab PO DAILY 03/13/21 05/31/23 magnesium) tablet montelukast 10 mg tablet 1 tab PO BEDTIME 03/13/21 05/31/23 pregabalin 225 mg capsule 1 cap PO BID 03/13/21 05/31/23 atorvastatin 10 mg tablet 1 tab PO BEDTIME 03/14/21 05/31/23 dexlansoprazole 60 mg 60 mg PO DAILY@0630 06/07/21 05/31/23 capsule,biphase delayed release (Dexilant) losartan 25 mg tablet 25 mg PO DAILY 06/07/21 05/31/23 furosemide 40 mg tablet 80 mg PO DAILY 10/02/22 05/31/23 Previous Rx's Medication Instructions Recorded fluconazole 150 mg tablet 150 mg PO QWEEK 2 weeks #2 tabs 03/28/23 miconazole nitrate 2 % vaginal 1 appful vaginal BEDTIME 7 days 03/28/23 cream (Monistat 7) #45 grams triamcinolone acetonide 0.1 % 1 appl topical BID #15 grams 01/14/24 topical cream fluticasone furoate 200 1 inh inhalation DAILY copd 30 05/02/23 mcg-vilanterol 25 mcg/dose days #60 ea inhalation powder (Breo Ellipta) tramadol 50 mg tablet 50 mg PO Q6H PRN pain #20 tabs 05/18/23 ciprofloxacin HCl 500 mg tablet 500 mg PO BID #20 tabs 05/31/23 (Cipro) metronidazole 500 mg tablet 500 mg PO BID 10 days #20 tabs 05/31/23 Allergies Allergy/AdvReac Type Severity Reaction Status Date / Time celecoxib [From CELEBREX] Allergy Unknown RASH Verified 05/31/23 14:24 Latex, Natural Rubber Allergy Unknown Rash Verified 05/31/23 14:24 ibuprofen [IBUPROFEN] AdvReac Intermediate RASH Verified 05/31/23 14:24 Review of Systems Review of Systems All other systems are reviewed and are negative Constitutional: Reports as per HPI and Reports no additional constitutional complaints Eyes: Reports as per HPI and Reports no additional eye complaints Reports system reviewed and no additional complaints, except as documented Cardiovascular: Reports as per HPI and Reports no additional cardiovascular complaints Respiratory: Reports as per HPI and Reports no additional respiratory complaints Gastrointestinal: Reports as per HPI and Reports no additional gastrointestinal complaints Genitourinary: Reports no additional female genitourinary complaints Musculoskeletal: Reports no additional musculoskeletal complaints Skin/Breast: Reports system reviewed and no additional complaints, except as docu Psychiatric: Reports no additional psychiatric complaints Endocrine: Reports no additional endocrine complaints Hematologic/Lymphatic: Reports no additional hematologic/lymphatic complaints Allergic/Immunologic: Reports no additional allergic/immunologic complaints Reports system reviewed and no additional complaints, except as documented and Reports Abnormal speech present [facility] Past Medical History Medical History Respiratory failure Interstitial lung disease Seasonal allergies Diarrhea Neuropathy Asthma Hypercholesteremia GERD (gastroesophageal reflux disease) Thyroid activity decreased Hypertension Surgical History Hx of cataract surgery H/O: hysterectomy History of cholecystectomy Family History Family History Mother Asthma Father No problems noted. 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 Housing Other:: [employer] heights Do you presently have visiting nurse or other home services: No Unable to assess alcohol history related to: Unknown Alcohol intake: never Patient Tobacco Use Status: Never used Tobacco Smoked in Last 30 Days: No Advance Directives: No Advance Directives Information Provided: Yes service: No Current occupational status: retired Physical Exam ED Vital Signs: Vital Signs - 24 hr 06/02/23 01:17 06/02/23 04:19 06/02/23 06:23 Temperature 97.5 F 97.6 F 97.4 F Pulse Rate 61 56 56 Respiratory Rate 16 12 16 Blood Pressure 136/75 100/39 L 98/36 L Pulse Oximetry 100 99 100 Oxygen Delivery Method Nasal Cannula Nasal Cannula Nasal Cannula Oxygen Flow Rate 3 3 BMI result Body Mass Index 54.0 Vital signs have been reviewed and appear to be correct. Blood pressure elevated. Heart rate normal. Respiratory rate normal. Temperature normal. Oxygen saturation normal. Appearance: Alert. Oriented X3. No acute distress. Head: Normal external exam. Normocephalic. Atraumatic. No Benson signs noted. No raccoon eyes noted Eyes: PERRLA. EOMI. Conjunctiva and sclera normal. Eyelids normal. ENT: TM's Normal. Pharynx normal. Uvula midline. Moist mucous membranes. No trismus noted. No drooling noted. No muffled voice noted. Neck: Normal inspection. Neck supple. FROM. No adenopathy. Thyroid Normal. No meningeal signs. No neck mass noted. CVS: Normal heart rate and rhythm. Heart sound normal. No murmurs noted. Pulses normal throughout. Respiratory: No respiratory distress. Painless inspiration. Breath sounds normal. No wheezes/rales/rhonchi noted. Chest nontender. No accessory muscle usage noted or decreased air movement noted. Abdomen: Soft, obese, suprapubic tenderness, no rebound tenderness, no guarding. Bowel sounds normal in all 4 quadrants. No distention noted. No organomegaly noted. No visible injury noted. Back: No CVA tenderness. Full range of motion noted. Skin: Skin warm and dry. Normal skin color. Normal skin turgor. No rashes/lesions/lacerations noted. Extremities: No lower extremity edema. Extremities exhibit normal range of motion. Extremities nontender. Neuro: Oriented X 3. Cranial nerve exam: II-XII are grossly intact No motor deficit. No sensory deficit. Reflexes normal. Course Reevaluation(s) Reevaluation #1: A 72-year-old female with history of diverticular disease, patient just finished a course of antibiotic and started a 2nd course of antibiotic with no improvement will admit for IV antibiotic. Time: 10:38 Medical Decision Making Differential Diagnosis Differential Diagnoses: The differential diagnosis associated with the presentation includes (Acute diverticulitis, colitis, acute appendicitis, abscess, pancreatitis, acute cholecystitis, electrolyte derangement, severe anemia, UTI.) Admission/Observation Consideration of admission/observation: Escalation of care including admission/observation considered Consult Healthcare Provider Management of the patient was discussed with: Hospitalist (Dr. Peres) Lab Data MDM Lab Attestation statement: I reviewed the patient's lab results. 06/02/23 01:28 06/02/23 02:12 Labs: Lab Results 06/02/23 06/02/23 06/02/23 Range/Units 01:28 02:12 07:38 WBC 8.6 (4.8-10.8) X10*3/uL RBC 3.89 L (4.20-5.50) X10*6/uL Hgb 11.3 L (12.0-16.0) g/dl Hct 33.9 L (37.0-47.0) % MCV 87.1 (80.0-98.0) fL MCH 29.0 (27.0-33.0) pg MCHC 33.3 (31.0-35.0) g/dl RDW 14.2 (11.0-16.0) % Plt Count 262 (160-400) X10*3/uL MPV 10.9 (9.4-12.3) fL Immature Gran % (Auto) 0.1 (0.0-0.4) % Neut % (Auto) 65.1 (45-73) % Lymph % (Auto) 21.8 (20-40) % Bennett % (Auto) 8.8 (2-11) % Eos % (Auto) 3.6 (0-4) % Baso % (Auto) 0.6 (0-2) % Lymph # (Auto) 1.9 (1.2-4.9) X10*3/uL Bennett # (Auto) 0.8 (0.1-1.2) X10*3/uL Eos # (Auto) 0.3 (0.0-0.4) X10*3/uL Baso # (Auto) 0.1 (0.0-0.2) X10*3/uL Abs Immat Gran (auto) 0.01 (0.00-0.03) X10*3/uL Absolute Neuts (auto) 5.6 (2.0-8.3) x10*3/uL Absolute Nucleated RBC 0.000 (0.0-0.012) X10*3/uL Nucleated RBC % (auto) 0.0 (0.0-0.2) /100WBC Sodium 141 (135-145) mmol/L Potassium 4.1 (3.3-5.1) mmol/L Chloride 99 (96-108) mmol/L Carbon Dioxide 34 H (22-29) mmol/L Anion Gap 12 (12-20) BUN 23 H (9-16) mg/dL Creatinine 1.21 (0.5-1.4) mg/dL Estim Creat Clear Calc 61.4 Estimated GFR 44 Random Glucose 111 (60-115) mg/dL Calcium 8.2 L (8.4-10.2) mg/dL Total Bilirubin 0.5 (0.0-1.0) mg/dL AST 13 (5-31) U/L ALT 8 (0-31) U/L Alkaline Phosphatase 79 (39-117) U/L Total Protein 6.3 L (6.5-8.0) g/dL Albumin 3.5 (3.5-5.0) g/dL Lipase 25 (8-78) U/L Urine Color Yellow Urine Appearance Clear Urine pH 5.0 (5.0-9.0) Ur Specific [place] 1.015 (1.005-1.025) Urine Protein Negative (Neg-Trace) mg/dL Urine Glucose (UA) Negative (Negative) mg/dL Urine Ketones Negative (Negative) mg/dL Urine Blood Negative (Negative) Urine Nitrite Negative (Negative) Ur Leukocyte Esterase Moderate (2+) H (Negative) Urine RBC 0-2 (0-2) /HPF Urine WBC 6-10 H (0-5) /HPF Ur Squamous Epith Cells 0-2 (0-2) /HPF Urine Bacteria None Seen (None Seen) Hyaline Casts 0-2 (0-2) /LPF Independent Interpretation I performed an independent interpretation of an: CT Scan (Abdomen and pelvis:1. Mild diverticulitis in the sigmoid colon with improvement of inflammatory changes since the previous examination. No evidence of abscess formation or perforation. 2. Status post cholecystectomy and hysterectomy. 3. Mild hepatomegaly. 4. Degenerative changes in lumbar spine ) Radiology Impression Discussion of test interpretation with radiology: I have reviewed the radiologist's reading. Discharge Plan Discharge Clinical Impression: Acute diverticulitis Patient Disposition: Admitted As Inpatient Prescriptions: No Action fluticasone furoate-vilanterol [Breo Ellipta] 200-25 mcg/dose blister with device 1 inh inhalation DAILY 30 Days Qty: 60 3RF atorvastatin 10 mg tablet 1 tab PO BEDTIME carvedilol 6.25 mg tablet 1 tab PO BIDWM cetirizine 10 mg tablet 1 tab PO DAILY magnesium oxide 400 mg (241.3 mg magnesium) tablet 1 tab PO DAILY levothyroxine 50 mcg tablet 1 tab PO DAILY@0600 ferrous sulfate 325 mg (65 mg iron) tablet 1 tab PO DAILY montelukast 10 mg tablet 1 tab PO BEDTIME pregabalin 225 mg capsule 1 cap PO BID furosemide 40 mg tablet 80 mg PO DAILY fluconazole 150 mg tablet 150 mg PO QWEEK 14 Days Qty: 2 0RF miconazole nitrate [Monistat 7] 2 % cream 1 appful vaginal BEDTIME 7 Days Qty: 45 0RF triamcinolone acetonide 0.1 % cream 1 appl topical BID Qty: 15 0RF tramadol 50 mg tablet 50 mg PO Q6H PRN (Reason: pain) Qty: 20 0RF losartan 25 mg tablet 25 mg PO DAILY dexlansoprazole [Dexilant] 60 mg capsule,biphase delayed releas 60 mg PO DAILY@0630 ciprofloxacin HCl [Cipro] 500 mg tablet 500 mg PO BID Qty: 20 0RF metronidazole 500 mg tablet 500 mg PO BID 10 Days Qty: 20 0RF
[2023-06-02 07:44] LABS: Appearance Urine Clear; Color Urine Yellow; Glucose Urine UA Negative (Negative); Leukocyte Esterase Urine Moderate (2+) (Negative); Nitrite Urine Negative (Negative); Specific Gravity - Urine 1.015 (1.005-1.025); UMIC TRIGGER UACC YES; Urine Blood Negative (Negative); Urine Ketones Negative (Negative); Urine Protein Negative (Neg-Trace)
[2023-06-02 07:49] LABS: Bacteria Urine None Seen (None Seen); Hyaline Casts Urine 0-2 /LPF (0-2); RBC Urine 0-2 /HPF (0-2); Squamous Epithelial Cell Urine 0-2 /HPF (0-2); UACC Culture Trigger YES
[2023-06-02] MEDS: Piperacillin Sodium/Tazobactam 3.375 GM in 0.9 % Sodium Chloride 50 ML IV ×3 (10:55→22:06)
--- NOTE | 2023-06-02 11:24 | P.HPHOSP_ITS ---
<Statement entered by Osvaldo Peres MD - 06/02/23 16:22> the patient was seen and evaluated with SHON Anthony. I agree with his note, assessment and plan with the following. In summary, A 72 years old lady with PMH of HTN, neuropathy, COPD on 3L, MISSY among others who presents to the hospital after failure of PO Abx in treatment of diverticulitis. Acute diverticulitis CT shows mild uncomplicated diverticulitis and sigmoid colon with improvement since previous Nausea medication Zosyn Q6 pain medication Clears, advance as tolerated IVF Rest of evaluations by PA note. History of Present Illness Date of Service: 06/02/23 Attending physician on admission: Osvaldo Peres Chief Complaint: Abdominal pain Pt is a 72-year-old female with a PMH significant for?HTN, peripheral neuropathy, asthma/COPD overlap syndrome chronically on 3L of home O2, MISSY on NC at night, severe arthritis of knees, hypothyroidism, chronic lower leg edema, and chronic dysphagia who presents to the ED with continued lower abdominal pain, nausea, and diarrhea despite outpatient therapy for diverticulitis. Patient initially presented to the ER on 05/17/2023 and was found to have acute sigmoid diverticulitis without complication. Was discharged home and treated with Cipro and metronidazole x10 days, but continued to have abdominal pain, nausea, and diarrhea despite completion of antibiotics as prescribed. At General Surgery follow-up office visit on 05/31/2023 antibiotics were renewed. Despite this, pt symptoms have persisted and presents today for further treatment. Patient states that she has been able to mostly eating normal diet during this time, though often has nausea without vomiting. Bowel movements have been ?quite loose?, but denies hematochezia. Of note, patient was intubated in September 2022 for 1 week, and since then has had dysphagia that requires a soft/mechanically ground diet. Patient denies fever, chills. No chest pain/pressure, palpitations. In the ED pt had soft BP as low as 98/36, vitals otherwise WNL. Labs were grossly unremarkable. UA Likely negative for UTI. CT of abdomen and pelvis significant for mild diverticulitis in sigmoid colon with improvement of inflammatory changes since previous exam and no evidence of abscess or perforation. Pt was treated with Zosyn. Pt will be admitted to the hospital for treatment and further evaluation diverticulitis and has failed outpatient therapy. Review of Systems 2 Review of Systems: Right lower quadrant abdominal pain radiating to left side Nausea, no vomiting Denies fever, chills No chest pain/pressure, palpitations [facility] Medical History Respiratory failure Interstitial lung disease Seasonal allergies Diarrhea Neuropathy Asthma Hypercholesteremia GERD (gastroesophageal reflux disease) Thyroid activity decreased Hypertension Family History Mother Asthma Father No problems noted. 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 Housing: Apartment Housing Other:: [employer] Do you presently have visiting nurse or other home services: No Unable to assess alcohol history related to: Unknown Alcohol intake: never Patient Tobacco Use Status: Never used Tobacco Smoked in Last 30 Days: No Advance Directives: No Advance Directives Information Provided: Yes service: No Current occupational status: retired Meds Allergies Allergy/AdvReac Type Severity Reaction Status Date / Time celecoxib [From CELEBREX] Allergy Unknown RASH Verified 05/31/23 14:24 Latex, Natural Rubber Allergy Unknown Rash Verified 05/31/23 14:24 ibuprofen [IBUPROFEN] AdvReac Intermediate RASH Verified 05/31/23 14:24 Home Medications Medication Instructions Recorded Confirmed Last Taken Type carvedilol 6.25 mg tablet 1 tab PO BIDWM 03/13/21 06/02/23 06/01/23 History cetirizine 10 mg tablet 1 tab PO DAILY 03/13/21 06/02/23 06/01/23 History ferrous sulfate 325 mg (65 mg 1 tab PO DAILY 03/13/21 06/02/23 06/01/23 History iron) tablet levothyroxine 50 mcg tablet 1 tab PO DAILY@0600 03/13/21 06/02/23 06/01/23 History magnesium oxide 400 mg (241.3 mg 1 tab PO DAILY 03/13/21 06/02/23 06/01/23 History magnesium) tablet montelukast 10 mg tablet 1 tab PO BEDTIME 03/13/21 06/02/23 06/01/23 History pregabalin 225 mg capsule 1 cap PO BID 03/13/21 06/02/23 06/01/23 History atorvastatin 10 mg tablet 1 tab PO BEDTIME 03/14/21 06/02/23 06/01/23 History dexlansoprazole 60 mg 60 mg PO DAILY@0630 06/07/21 06/02/23 06/01/23 History capsule,biphase delayed release (Dexilant) losartan 25 mg tablet 25 mg PO DAILY 06/07/21 06/02/23 06/01/23 History furosemide 40 mg tablet 80 mg PO DAILY 10/02/22 06/02/23 06/01/23 History dicyclomine 10 mg capsule 10 mg PO TID PRN Abdominal Pain 06/02/23 06/02/23 Unknown History estradiol 2 mg (7.5 mcg/24 hour) 1 vag ring vaginal Q90D 06/02/23 06/02/23 06/01/23 History vaginal ring (Estring) fluticasone 250 mcg-salmeterol 50 1 ea inhalation BID 06/02/23 06/02/23 06/01/23 History mcg/dose blistr powdr for inhalation (Advair Diskus) Physical Exam 2 Vital Signs and Narrative: Vital Signs: Last Vital Signs Temp 97.4 F 06/02/23 06:23 Pulse 55 06/02/23 10:00 Resp 18 06/02/23 10:00 BP 120/52 L 06/02/23 10:00 Pulse Ox 97 06/02/23 10:00 O2 Del Method Room Air 06/02/23 10:00 O2 Flow Rate 3 06/02/23 06:23 Oxygen Flow Rate 2 06/02/23 01:17 BMI result Body Mass Index 54.0 Constitutional: Alert, in no acute distress. Mental Status: Oriented to person, place and time. Eyes: Pupils are equal, round, and reactive to light. Ear, Nose, and Throat: Oropharynx clear, mucous membranes moist. Ears and nose without deformities. Trachea midline. Respiratory: Clear to auscultation bilaterally. No wheezing, rales, or rhonchi. Cardiovascular: S1, S2 regular. No murmurs, rubs, or gallops. Gastrointestinal: Abdomen soft, with diffuse lower abdominal tenderness most pronounced on right side. Normal bowel sounds. Neurologic: Cranial nerves II-XII are grossly intact bilaterally. No focal neurological deficits. Moves all extremities spontaneously. Skin: Warm, dry. Musculoskeletal: No cyanosis or clubbing. Extremities: Chronic non-pitting bilateral edema. Psychiatric: Normal mood and affect. Results Labs 06/02/23 01:28 06/02/23 02:12 Labs: Laboratory Results - last 24 hr 06/02/23 06/02/23 06/02/23 01:28 02:12 07:38 MCV 87.1 MCH 29.0 MCHC 33.3 RDW 14.2 Plt Count 262 MPV 10.9 Immature Gran % (Auto) 0.1 Neut % (Auto) 65.1 Lymph % (Auto) 21.8 Parker % (Auto) 8.8 Eos % (Auto) 3.6 Baso % (Auto) 0.6 Lymph # (Auto) 1.9 Parker # (Auto) 0.8 Eos # (Auto) 0.3 Baso # (Auto) 0.1 Abs Immat Gran (auto) 0.01 Absolute Neuts (auto) 5.6 Absolute Nucleated RBC 0.000 Nucleated RBC % (auto) 0.0 Anion Gap 12 Estim Creat Clear Calc 61.4 Estimated GFR 44 Random Glucose 111 Calcium 8.2 L Total Bilirubin 0.5 AST 13 ALT 8 Alkaline Phosphatase 79 Total Protein 6.3 L Albumin 3.5 Lipase 25 Urine Color Yellow Urine Appearance Clear Urine pH 5.0 Ur Specific [place] 1.015 Urine Protein Negative Urine Glucose (UA) Negative Urine Ketones Negative Urine Blood Negative Urine Nitrite Negative Ur Leukocyte Esterase Moderate (2+) H Urine RBC 0-2 Urine WBC 6-10 H Ur Squamous Epith Cells 0-2 Urine Bacteria None Seen Hyaline Casts 0-2 Imaging Radiologist's Impressions: Impressions Abdomen/Pelvis CT 06/02/23 08:10 IMPRESSION: 1. Mild diverticulitis in the sigmoid colon with improvement of inflammatory changes since the previous examination. No evidence of abscess formation or perforation. 2. Status post cholecystectomy and hysterectomy. 3. Mild hepatomegaly. 4. Degenerative changes in lumbar spine and hip joints. Fleischner guidelines were followed. Assessment and Plan (1) Acute diverticulitis: Status: Acute Plan Pt is a 72-year-old female with a PMH significant for?HTN, peripheral neuropathy, asthma/COPD overlap syndrome chronically on 3L of home O2, MISSY on NC at night, severe arthritis of knees, hypothyroidism, chronic lower leg edema, and chronic dysphagia who presents to the ED with continued lower abdominal pain, nausea, and diarrhea despite outpatient therapy for diverticulitis. Pt will be admitted to the hospital for treatment and further evaluation diverticulitis and has failed outpatient therapy. Acute diverticulitis Initially presented to ER on 05/17, discharged home on 10 days of Cipro and metronidazole Symptoms persisted and antibiotics renewed and general surgery follow-up apt on 05/31 Patient continues to experience abdominal pain, nausea, diarrhea CT today continues to show mild uncomplicated diverticulitis and sigmoid colon with improvement since previous Will treat with Zosyn, started 06/02/2023 IVF, analgesics for pain management Clear liquid diet for now, advance as tolerated Diet Pt with chronic dysphagia Ground/mech altered (NDD2) diet once advanced Asthma/COPD overlap syndrome Patient chronically on 3 L of home O2 Not in acute exacerbation Continue home inhalers HTN Continue home meds Chronic lower leg edema Continue home furosemide Hypothyroidism Continue levothyroxine Obesity class 3 Encourage weight loss Full Code Attending:?Dr. Peres DVT Prophylaxis: Lovenox Pt will require a hospitalization of at least two nights for treatment of?acute uncomplicated diverticulitis that has failed outpatient therapy. Patient will require hospitalization for administration of IV antibiotics and bowel rest. Quality Stroke Does the patient have a stroke diagnosis?: No VTE Prior VTE?: No VTE Risk Level:: Medical - moderate - high VTE Device Contraindication: Treatment Not Indicated VTE Drug Contraindication: N/A - Med Ordered
--- NOTE | 2023-06-02 12:02 | PHA.MEDREC ---
Pharmacy Consult ? Medication Reconciliation Pharmacy has completed the medication reconciliation. Spoke to patient to confirm meds.
[2023-06-02] MEDS: Magnesium Oxide 400 MG TABLET PO (13:25)
[2023-06-02] MEDS: Levothyroxine Sodium 50 MCG TABLET PO (13:25)
[2023-06-02] MEDS: Pregabalin 75 MG CAPSULE 225 MG PO ×2 (13:25→21:58)
[2023-06-02] MEDS: Furosemide 40 MG TABLET 80 MG PO (13:25)
[2023-06-02] MEDS: Enoxaparin Sodium 40 MG/0.4 ML SYRINGE SUBCUT (13:25)
[2023-06-02] MEDS: Loratadine 10 MG TABLET PO (13:25)
[2023-06-02] MEDS: Lactated Ringers 1,000 ML 80 ML IVCONT (13:34)
[2023-06-02] MEDS: carvediloL 6.25 MG TABLET PO (17:12)
[2023-06-02] MEDS: 0.9 % Sodium Chloride Flush 3 ML SYRINGE IVFLUSH (17:12)
[2023-06-02] MEDS: Fluticasone/Vilanterol 100/25 BLST.W.DEV 1 PUFF INHALE (20:49)
[2023-06-02] MEDS: Montelukast Sodium 10 MG TABLET PO (21:58)
[2023-06-02] MEDS: Atorvastatin Calcium 10 MG TABLET PO (21:58)
[2023-06-03] MEDS: Lactated Ringers 1,000 ML 80 ML IVCONT (01:59)
[2023-06-03 04:00] VITALS: BP 120/55; PULSE 57; RESP 18; TEMP 36.2; O2SAT 100
[2023-06-03] MEDS: Piperacillin Sodium/Tazobactam 3.375 GM in 0.9 % Sodium Chloride 50 ML IV ×2 (04:56→11:16)
[2023-06-03] MEDS: Levothyroxine Sodium 50 MCG TABLET PO (05:43)
[2023-06-03] MEDS: Omeprazole 40 MG CAPSULE.DR PO (05:43)
[2023-06-03 07:49] VITALS: BP 131/60; PULSE 61; RESP 16; TEMP 36.6; O2SAT 100
[2023-06-03] MEDS: ondansetron HCL 4 MG/2 ML VIAL IVPUSH (08:14)
[2023-06-03] MEDS: Fluticasone/Vilanterol 100/25 BLST.W.DEV 1 PUFF INHALE (08:26)
[2023-06-03 08:28] VITALS: PULSE 61; RESP 16; O2SAT 98
[2023-06-03] MEDS: Furosemide 40 MG TABLET 80 MG PO (10:00)
[2023-06-03] MEDS: Magnesium Oxide 400 MG TABLET PO (10:00)
[2023-06-03] MEDS: carvediloL 6.25 MG TABLET PO ×2 (10:00→18:06)
[2023-06-03] MEDS: Ferrous Sulfate 324 MG TABLET.DR PO (10:00)
[2023-06-03] MEDS: Losartan Potassium 25 MG TABLET PO (10:00)
[2023-06-03] MEDS: Loratadine 10 MG TABLET PO (10:00)
[2023-06-03] MEDS: Pregabalin 75 MG CAPSULE 225 MG PO ×2 (10:00→21:38)
[2023-06-03] MEDS: Dicyclomine HCl 10 MG CAPSULE PO ×4 (10:00→21:38)
--- NOTE | 2023-06-03 10:54 | MHC.CM.PN ---
IMM DELIVERED. PATIENT IS FROM HOME W/ S.O./HCP EDWARD. AMBULATES W/ A WHEELED WALKER. 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 S.O. ASSISTS W/ ADL'S PRN. 3L HOME O2 VIA [facility] PCP ONDINA FAYE MD HCP ON FILE AND VERIFIED DP: GOAL IS HOME W/ SERVICES. PATIENT HAS USED [facility] IN THE PAST, RETURN REFERRAL SENT. IF SNF IS RECOMMENDED PATIENT PREFERS [facility]. WILL NEED [facility] TRANSPORTATION. CM WILL CONTINUE TO FOLLOW.
[2023-06-03] MEDS: Enoxaparin Sodium 40 MG/0.4 ML SYRINGE SUBCUT (11:16)
--- NOTE | 2023-06-03 11:35 | P.PNIM_ITS ---
Subjective Subjective Date of Service: 06/03/23 Interval History: Seen and evaluated this morning still complaining of colicky pain no fever or chills having softer bowel movements no other events Review of Systems Review of Systems: Yes all other systems are reviewed and are negative Physical Exam 2 Vital Signs: Vital Signs: Last Vital Signs Temp 97.8 F 06/03/23 07:49 Pulse 61 06/03/23 08:28 Resp 16 06/03/23 08:28 BP 131/60 06/03/23 07:49 Pulse Ox 100 06/03/23 07:49 O2 Del Method Nasal Cannula 06/03/23 07:49 O2 Flow Rate 3 06/03/23 07:49 Oxygen Flow Rate 2 06/02/23 01:17 BMI result Body Mass Index 54.9 Const: Other: Constitutional : Awake, interactive, not in distress Neck : Normal inspection, Supple Cardiovascular : RRR, no JVP, no lower extremity edema Respiratory : good bilateral air entry, no crackles, wheezes or rhonchi Gastrointestinal: soft, lax, Normal bowel sounds, Non tender Skin : Warm, Dry Neurological : Alert & oriented x3, No focal deficit Objective Data Active Medications Acetaminophen (Acetaminophen 325 Mg Tablet) 650 mg PO Q6H PRN PRN Reason: Pain, Mild (Pain Scale 1-3) Atorvastatin Calcium (Atorvastatin Calcium 10 Mg Tablet) 10 mg PO BEDTIME [facility] Last Admin: 06/02/23 21:58 Dose: 10 mg Documented By: CHARAN Belladonnjj Alkaloids/Phenobarbital (Phenobarb/Hyoscy/Atropine/Scop 10 Ml Elixir) 5 ml PO QID [facility] Benzonatate (Benzonatate 100 Mg Capsule) 100 mg PO TID PRN PRN Reason: Cough Carvedilol (Carvedilol 6.25 Mg Tablet) 6.25 mg PO BIDWM [facility]; Protocol Last Admin: 06/03/23 10:00 Dose: 6.25 mg Documented By: URBANO Dicyclomine HCl (Dicyclomine Hcl 10 Mg Capsule) 10 mg PO TID PRN PRN Reason: Abdominal Pain Dicyclomine HCl (Dicyclomine Hcl 10 Mg Capsule) 10 mg PO QIDACHS [facility] Last Admin: 06/03/23 10:00 Dose: 10 mg Documented By: URBANO Docusate Sodium (Docusate Sodium 100 Mg Capsule) 100 mg PO DAILY PRN PRN Reason: Constipation Enoxaparin Sodium (Enoxaparin Sodium 40 Mg/0.4 Ml Syringe) 40 mg SUBCUT Q24H [facility] Last Admin: 06/03/23 11:16 Dose: 40 mg Documented By: MARIBELL Ferrous Sulfate (Ferrous Sulfate 324 Mg Tablet.) 324 mg PO DAILY [facility] Last Admin: 06/03/23 10:00 Dose: 324 mg Documented By: URBANO Fluticasone/Vilanterol (Fluticasone/Vilanterol 100/25 Blst.W.Dev) 1 puff INHALE RDAILY [facility] Last Admin: 06/03/23 08:26 Dose: 1 puff Documented By: JASVIR Furosemide (Furosemide 40 Mg Tablet) 80 mg PO DAILY [facility]; Protocol Last Admin: 06/03/23 10:00 Dose: 80 mg Documented By: URBANO Piperacillin Sod/Tazobactam (Sod 3.375 gm/ Sodium Chloride) 50 mls @ 100 mls/hr IV Q6H [facility] Last Admin: 06/03/23 11:16 Dose: 100 mls/hr Documented By: AMRIBELL Lactated Ringer's (Lr) 1,000 mls @ 80 mls/hr IVCONT .[id number] [facility] Last Admin: 06/03/23 01:59 Dose: 80 mls/hr Documented By: PONCHO Levothyroxine Sodium (Levothyroxine Sodium 50 Mcg Tablet) 50 mcg PO DAILY@0600 [facility] Last Admin: 06/03/23 05:43 Dose: 50 mcg Documented By: PONCHO Loratadine (Loratadine 10 Mg Tablet) 10 mg PO DAILY [facility] Last Admin: 06/03/23 10:00 Dose: 10 mg Documented By: URBANO Losartan Potassium (Losartan Potassium 25 Mg Tablet) 25 mg PO DAILY [facility]; Protocol Last Admin: 06/03/23 10:00 Dose: 25 mg Documented By: URBANO Magnesium Oxide (Magnesium Oxide 400 Mg Tablet) 400 mg PO DAILY [facility] Last Admin: 06/03/23 10:00 Dose: 400 mg Documented By: URBANO Melatonin (Melatonin 3 Mg Tablet) 6 mg PO BEDTIME PRN PRN Reason: Insomnia Montelukast Sodium (Montelukast Sodium 10 Mg Tablet) 10 mg PO BEDTIME [facility] Last Admin: 06/02/23 21:58 Dose: 10 mg Documented By: CHARAN Morphine Sulfate (Morphine Sulfate 2 Mg/Ml Cartridge) 2 mg IVPUSH Q4H PRN; Protocol PRN Reason: Pain, Severe (Pain Scale 7-10) Omeprazole (Omeprazole 40 Mg Capsule.Dr) 40 mg PO DAILY@0630 [facility] Last Admin: 06/03/23 05:43 Dose: 40 mg Documented By: PONCHO Ondansetron HCl (Ondansetron Hcl 4 Mg/2 Ml Vial) 4 mg IVPUSH Q8H PRN PRN Reason: Nausea and Vomiting Last Admin: 06/03/23 08:14 Dose: 4 mg Documented By: URBANO Pregabalin (Pregabalin 75 Mg Capsule) 225 mg PO BID [facility] Last Admin: 06/03/23 10:00 Dose: 225 mg Documented By: URBANO Sodium Chloride (0.9 % Sodium Chloride Flush 3 Ml Syringe) 3 ml IVFLUSH QSHIFT [facility] Last Admin: 06/03/23 09:59 Dose: Not Given Documented By: URBANO Non-Admin Reason: IV Running Tramadol HCl (Tramadol Hcl 50 Mg Tablet) 50 mg PO Q6H PRN PRN Reason: Pain, Moderate(Pain Scale 4-6) Labs 06/02/23 01:28 06/02/23 02:12 Assessment and Plan (1) Acute diverticulitis: Status: Acute Plan Pt is a 72-year-old female with a PMH significant for?HTN, peripheral neuropathy, asthma/COPD overlap syndrome chronically on 3L of home O2, MISSY on NC at night, severe arthritis of knees, hypothyroidism, chronic lower leg edema, and chronic dysphagia who presents to the ED with continued lower abdominal pain, nausea, and diarrhea despite outpatient therapy for diverticulitis. Pt will be admitted to the hospital for treatment and further evaluation diverticulitis and has failed outpatient therapy. Abdominal colicky pain w recent Acute diverticulitis received 2 weeks of PO Abx as outpatient continues to experience abdominal pain which is colicky in nature CT showed mild improvement in uncomplicated diverticulitis and sigmoid colon DC Abx DC IVF analgesics for pain management Bentyl and antispasmolytics advance diet as tolerated Diet Pt with chronic [facility]ph[facility]ia [facility] diet once advanced Asthma/COPD overlap syndrome Patient chronically on 3 L of home O2 Not in acute exacerbation Continue home inhalers HTN Continue home meds Chronic lower leg edema Continue home furosemide Hypothyroidism Continue levothyroxine Obesity class 3 Encourage weight loss Full Code Attending:?Dr. Peres DVT Prophylaxis: Lovenox Pt will require a hospitalization of at least two nights for treatment of?acute uncomplicated diverticulitis that has failed outpatient therapy. Patient will require hospitalization for administration of IV antibiotics and bowel rest. Quality Stroke Does the patient have a stroke diagnosis?: No VTE Prior VTE?: No VTE Risk Level:: Medical - moderate - high VTE Device Contraindication: Treatment Not Indicated VTE Drug Contraindication: N/A - Med Ordered
[2023-06-03] MEDS: PHENobarb/Hyoscy/Atropine/Scop 10 ML ELIXIR 5 ML PO ×3 (13:54→21:37)
[2023-06-03] MEDS: Morphine Sulfate 2 MG/ML CARTRIDGE IVPUSH (14:02)
[2023-06-03 15:41] VITALS: BP 102/52; PULSE 63; RESP 18; TEMP 36.4; O2SAT 97
--- NOTE | 2023-06-03 17:37 | PC.NURSE ---
Nystatin not available,Pharmacy notified
[2023-06-03] MEDS: 0.9 % Sodium Chloride Flush 3 ML SYRINGE IVFLUSH (18:08)
--- NOTE | 2023-06-03 18:53 | PC.NURSE ---
5 ml of elixir waisted,LIZZIE Fulton witnessed,Pharmacy was notified that system is not prompting RN to have witness
[2023-06-03 20:00] VITALS: BP 109/53; PULSE 71; RESP 18; TEMP 36.2; O2SAT 96
[2023-06-03] MEDS: Nystatin Powder 15 GM BOTTLE 1 APPL TOPICAL (21:38)
[2023-06-03] MEDS: Montelukast Sodium 10 MG TABLET PO (21:38)
[2023-06-03] MEDS: Atorvastatin Calcium 10 MG TABLET PO (21:38)
[2023-06-04 03:21] VITALS: BP 122/60; PULSE 65; RESP 19; TEMP 36.6; O2SAT 99
[2023-06-04] MEDS: Omeprazole 40 MG CAPSULE.DR PO (05:46)
[2023-06-04] MEDS: Levothyroxine Sodium 50 MCG TABLET PO (05:46)
[2023-06-04 07:20] VITALS: BP 113/56; PULSE 62; RESP 12; TEMP 36; O2SAT 96
[2023-06-04] MEDS: Furosemide 40 MG TABLET 80 MG PO (07:57)
[2023-06-04] MEDS: Pregabalin 75 MG CAPSULE 225 MG PO (07:57)
[2023-06-04] MEDS: Losartan Potassium 25 MG TABLET PO (07:57)
[2023-06-04] MEDS: Dicyclomine HCl 10 MG CAPSULE PO ×2 (07:58→11:46)
[2023-06-04] MEDS: Magnesium Oxide 400 MG TABLET PO (07:58)
[2023-06-04] MEDS: Loratadine 10 MG TABLET PO (07:58)
[2023-06-04] MEDS: Ferrous Sulfate 324 MG TABLET.DR PO (07:58)
[2023-06-04] MEDS: PHENobarb/Hyoscy/Atropine/Scop 10 ML ELIXIR 5 ML PO ×2 (07:58→12:59)
[2023-06-04] MEDS: carvediloL 6.25 MG TABLET PO (07:58)
[2023-06-04] MEDS: Nystatin Powder 15 GM BOTTLE 1 APPL TOPICAL (08:10)
[2023-06-04] MEDS: 0.9 % Sodium Chloride Flush 3 ML SYRINGE IVFLUSH (08:11)
--- NOTE | 2023-06-04 09:47 | P.CDIM_ITS ---
PROVIDER RESPONSE TEXT: To clarify, the appropriate diagnosis supported by the clinical indicators: Chronic respiratory failure: hypoxic QUERY TEXT: PHYSICIAN'S DOCUMENTATION REQUEST Date of Query: 06/04/2023 08:20 AM EST Patient Name: Jocelynn Fernando Admit Date: 06/02/2023 Dear Osvaldo Peres, A review of the medical record indicates additional documentation may be needed. Please review below and update the documentation accordingly. Clinical Indicators: Progress note: Asthma/COPD overlap syndrome Patient is chronically on 3L of home O2. Not in exacerbation Please clarify which of the following accurately represents the patient's respiratory status: Chronic respiratory failure Please specify if Hypoxic, Hypercapnic, or Hypoxic and hypercapnic Other Other (explain) Clinically unable to determine (explain) Thank you, Tala Guaman, CCS, CDIS Use of terms such as suspected, likely, concern for, or probable (associated with a specific diagnosi s that is being evaluated, monitored, or treated as if it exists) are acceptable and can be coded in the inpatient se tting, when documented at the time of discharge. Please use your independent medical judgment in providing your response. THIS QUERY IS PART OF THE PERMANENT MEDICAL RECORD
--- NOTE | 2023-06-04 09:47 | P.CDIM_ITS ---
PROVIDER RESPONSE TEXT: To clarify, the appropriate diagnosis supported by the clinical indicators: Morbid obesity QUERY TEXT: PHYSICIAN'S DOCUMENTATION REQUEST Date of Query: 06/04/2023 08:22 AM EST Patient Name: Jocelynn Fernando Admit Date: 06/02/2023 Dear Osvaldo Peres, A review of the medical record indicates additional documentation may be needed. Please review below and update the documentation accordingly. Clinical Indicators: BMI: 54.9 145.1kg 5ft 4in If possible, please provide an associated diagnosis related to the abnormal BMI, such as: Morbid obesity Other Other (explain) Clinically unable to determine (explain) Thank you, Tala Guaman, CCS, CDIS Use of terms such as suspected, likely, concern for, or probable (associated with a specific diagnosi s that is being evaluated, monitored, or treated as if it exists) are acceptable and can be coded in the inpatient se tting, when documented at the time of discharge. Please use your independent medical judgment in providing your response. THIS QUERY IS PART OF THE PERMANENT MEDICAL RECORD
[2023-06-04 11:02] VITALS: PULSE 74; O2SAT 92
[2023-06-04] MEDS: Enoxaparin Sodium 40 MG/0.4 ML SYRINGE SUBCUT (11:46)
--- NOTE | 2023-06-04 12:06 | PM.DS ---
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 Patient initially presented to the ER on 05/17/2023 and was found to have acute sigmoid diverticulitis without complication. Was discharged home and treated with Cipro and metronidazole x10 days, but continued to have abdominal pain, nausea, and diarrhea despite completion of antibiotics as prescribed. At General Surgery follow-up office visit on 05/31/2023 antibiotics were renewed. Despite this, pt symptoms have persisted and presents today for further treatment. Patient states that she has been able to mostly eating normal diet during this time, though often has nausea without vomiting. Bowel movements have been ?quite loose?, but denies hematochezia. Of note, patient was intubated in September 2022 for 1 week, and since then has had dysphagia that requires a soft/mechanically ground diet. Patient denies fever, chills. No chest pain/pressure, palpitations. In the ED pt had soft BP as low as 98/36, vitals otherwise WNL. Labs were grossly unremarkable. UA Likely negative for UTI. CT of abdomen and pelvis significant for mild diverticulitis in sigmoid colon with improvement of inflammatory changes since previous exam and no evidence of abscess or perforation. Pt was treated with Zosyn. Pt will be admitted to the hospital for treatment and further evaluation diverticulitis and has failed outpatient therapy. Hospital course The patient was admitted for evaluation of Abdominal colicky pain w recent Acute diverticulitis. she did not have fever or chills. no leukocytosis. She received 2 weeks of PO Abx as outpatient and continues to experience abdominal pain which is colicky in nature. CT showed mild improvement in uncomplicated diverticulitis and sigmoid colon. Started on antibiotics that were then discontinued as her symptoms seems more of irritable bowel; improved with usage of Bentyl and antispasmolytics. diet advanced with good tolerance. She was evaluated by PT team who recommended home PT. Continue for the next 3-5 days then as needed Take Bentyl 3 times daily for the next 3-5 days then as needed Nystatin powder to the affected areas Advance your diet slowly at home. Time Attestation Discharge coordination time: Greater than 30 minutes Quality: Safe Use of Opioids Does Pt have an Active Cancer Diagnosis on the Problem List?: No Quality: Stroke Does the patient have a stroke diagnosis?: No Physical Exam Vital Signs: Vital Signs: Last Vital Signs Temp 96.8 F 06/04/23 07:20 Pulse 74 06/04/23 11:02 Resp 12 06/04/23 07:20 BP 113/56 L 06/04/23 07:20 Pulse Ox 92 06/04/23 11:02 O2 Del Method Nasal Cannula 06/04/23 07:20 O2 Flow Rate 3 06/04/23 07:20 Oxygen Flow Rate 2 06/02/23 01:17 BMI result Body Mass Index 54.9 Const: Other: Constitutional : Awake, interactive, not in distress Neck : Normal inspection, Supple Cardiovascular : RRR, no JVP, no lower extremity edema Respiratory : good bilateral air entry, no crackles, wheezes or rhonchi Gastrointestinal: soft, lax, Normal bowel sounds, Non tender Skin : Warm, Dry Neurological : Alert & oriented x3, No focal deficit DS: Data Data Completed and Pending Completed studies during hospitalization [Text1]: Procedures Assistance with Respiratory Ventilation, Less than 24 Consecutive Hours, Continuous Positive Airway Pressure (07/30/20) Insertion of Endotracheal Airway into Trachea, Via Natural or Artificial Opening (09/24/20) Insertion of Infusion Device into Superior Vena Cava, Percutaneous Approach (09/24/20) Introduction of Remdesivir Anti-infective into Peripheral Vein, Percutaneous Approach, [employer] (03/14/21) Respiratory Ventilation, 24-96 Consecutive Hours (09/24/20) Imaging Chest x-ray: Radiologist's impression: ITS Impressions Abdomen/Pelvis CT 06/02/23 08:10 IMPRESSION: 1. Mild diverticulitis in the sigmoid colon with improvement of inflammatory changes since the previous examination. No evidence of abscess formation or perforation. 2. Status post cholecystectomy and hysterectomy. 3. Mild hepatomegaly. 4. Degenerative changes in lumbar spine and hip joints. Fleischner guidelines were followed. Discharge Plan Discharge Anticipated Discharge Date/Time: 06/04/23 11:54 Patient Disposition: Home Health Service Discharge Diagnosis: Irritable bowel syndrome; acute diverticulitis Referrals: [facility] [Outside] - 1 Week Physician,Unknown J [Primary Care Provider] - 1 Week Discharge Medications: New tdocmacfn-oaljfv-itaumylb-scop [] 16.2-0.1037 -0.0194 mg/5 mL Elixir 5 ml PO QID Qty: 120 1RF nystatin 100,000 unit/gram Powder 1 appl topical BID Qty: 30 1RF Protocol: Apply to: Apply to: affected areas Continued atorvastatin 10 mg tablet 1 tab PO BEDTIME carvedilol 6.25 mg tablet 1 tab PO BIDWM cetirizine 10 mg tablet 1 tab PO DAILY magnesium oxide 400 mg (241.3 mg magnesium) tablet 1 tab PO DAILY levothyroxine 50 mcg tablet 1 tab PO DAILY@0600 ferrous sulfate 325 mg (65 mg iron) tablet 1 tab PO DAILY montelukast 10 mg tablet 1 tab PO BEDTIME pregabalin 225 mg capsule 1 cap PO BID furosemide 40 mg tablet 80 mg PO DAILY miconazole nitrate [Monistat 7] 2 % cream 1 appful vaginal BEDTIME 7 Days Qty: 45 0RF tramadol 50 mg tablet 50 mg PO Q6H PRN (Reason: pain) Qty: 20 0RF fluticasone propion-salmeterol [Advair Diskus] 250-50 mcg/dose blister with device 1 ea inhalation BID Estring 2 mg (7.5 mcg /24 hour) ring 1 vag ring vaginal Q90D dicyclomine 10 mg capsule 10 mg PO TID PRN (Reason: Abdominal Pain) losartan 25 mg tablet 25 mg PO DAILY dexlansoprazole [Dexilant] 60 mg capsule,biphase delayed releas 60 mg PO DAILY@0630 Discharge Orders: Discharge Order (Routine); Ordered 06/04/23 Ordered By: Osvaldo Peres Diet: Advance to usual diet Activity on Discharge: As tolerated Stand Alone Forms: Patient Portal Discharge page Care Plan Goals: Read below Health Concerns: Read below Plan of Treatment: Read below Assessment: You were admitted to the hospital for evaluation of abdominal pain. CT scan showed improvement in the recent diverticulitis. You improved with symptomatic medications. Continue for the next 3-5 days then as needed Take Bentyl 3 times daily for the next 3-5 days then as needed Nystatin powder to the affected areas Advance your diet slowly at home.
--- NOTE | 2023-06-04 12:10 | MHC.CM.PN ---
DP: PT HAS BEEN MEDICALLY CLEARED FOR DC HOME WITH [facility]. [facility] NOTIFIED OF TODAY'S DC. PT WILL UPDATE HER S/O. RN AWARE. BLS TRANSPORT BOOKED FOR 1:30 PM VIA [facility].
--- NOTE | 2023-06-04 12:11 | P.F2F_ITS ---
Service Date Service Date: 06/04/23 Encounter Date of encounter: 06/04/23 Reasons for Services Signs and symptoms assessed: physical deconditioning Reason for physical therapy: home safety and mobility and therapeutic exercises Homebound: Leaving the home is medically contraindicated at this time without the asist of a device and/or another person due th the listed conditions above and below. Reason homebound: unable to drive Certification: Based on the above findings, I certify that this patient is confined to the home and needs intermittent penitentiary care, physical therapy and/or speech therapy, or continues to need occupational therapy. The patient is under my care, and I have initiated the establishment of the plan of care. The patient will be followed by a physician who will periodically review the plan of care. Time Spent With Patient Time: Total time managing care of this patient today ____ minutes.
== END 2023-06-04 17:33 | disposition home health service (06) | DRG 392 ==
LOC: HO.ED 10:42 → HO.EDOVER 12:29 → HO.S3 12:41
PROVIDERS: Admitting Provider Student in an Organized Health Care Education/Training Program; Emergency Provider Emergency Medicine; PCP Internal Medicine; Visit Provider Student in an Organized Health Care Education/Training Program
DX: K58.9 Irritable bowel syndrome, unspecified (principal); K57.32 Diverticulitis of large intestine without perforation or abscess without bleeding; J96.11 Chronic respiratory failure with hypoxia; Z68.43 Body mass index [BMI] 50.0-59.9, adult; G47.33 Obstructive sleep apnea (adult) (pediatric); J44.9 Chronic obstructive pulmonary disease, unspecified; R13.10 Dysphagia, unspecified; E03.9 Hypothyroidism, unspecified; Z99.81 Dependence on supplemental oxygen; E66.01 Morbid (severe) obesity due to excess calories; Z71.3 Dietary counseling and surveillance; Z91.040 Latex allergy status; Z79.51 Long term (current) use of inhaled steroids; Z79.890 Hormone replacement therapy; Z79.899 Other long term (current) drug therapy
CPT/HCPCS: 36415; 74176; 80053; 81001; 83690; 85025; 87086; 94640; 97162; 99202; 99285; J1650; J2270; J2405; J2543; J7120

== ENCOUNTER → 2023-06-02 12:22 | Outpatient (BNV) | payer MEDICARE, MEDICAID, SELFPAY | PROVIDERS: Admitting Provider Student in an Organized Health Care Education/Training Program; Emergency Provider Emergency Medicine; Visit Provider Student in an Organized Health Care Education/Training Program | DX: K57.32 Diverticulitis of large intestine without perforation or abscess without bleeding (principal); K58.9 Irritable bowel syndrome, unspecified; J44.9 Chronic obstructive pulmonary disease, unspecified; Z99.81 Dependence on supplemental oxygen | CPT/HCPCS: 99223; 99232; 99238; G0180 ==

== ENCOUNTER 2023-06-05 15:26 | Emergency (ER) | payer MEDICARE, MEDICAID, SELFPAY ==
--- NOTE | ~2023-06-05 | CT_ITS ---
EXAMINATION: CT ABDOMEN AND PELVIS WITHOUT CONTRAST CLINICAL INFORMATION: Left lower quadrant abdominal pain. COMPARISON: CT abdomen/pelvis 06/02/2023. TECHNIQUE: Multidetector volumetric imaging was performed from the superior aspect of the liver through the pubic symphysis. Sagittal and coronal reformatted images were obtained on the technologist's workstation. This CT examination was performed using dose optimization techniques as appropriate, variously including the following: *Automated exposure control *Adjustment of mA and/or kV according to patient size (this includes techniques or standardized protocols for targeted exams where dose is matched to indication/reason for exam; i.e. extremities or head) *Use of iterative reconstruction technique DLP: 1415 mGy-cm FINDINGS: The lack of intravenous contrast limits evaluation of the solid visceral organs including the liver, spleen, pancreas, and kidneys. LUNG BASES: No focal consolidation or pleural effusion. Partially seen cardiomegaly. Again noted moderate hiatal hernia with stable mildly prominent paraesophageal nodes measuring up to 0.9 cm. LIVER, GALLBLADDER, AND BILIARY TREE: Decreased attenuation of the liver consistent with hepatic steatosis. Otherwise, liver is normal in size and morphology. No liver lesions in this limited noncontrast examination. Cholecystectomy. PANCREAS: Unremarkable. SPLEEN: Unremarkable. ADRENAL GLANDS: Unremarkable. KIDNEYS AND URETERS: The kidneys are normal in size, shape, and attenuation. No hydronephrosis, hydroureter, or calculi seen. No perinephric stranding. BLADDER: Unremarkable. GASTROINTESTINAL TRACT: Unchanged wall thickening and trace pericolonic stranding in the sigmoid within a background of diverticulosis. Normal appendix. No evidence of bowel obstruction. Moderate to large degree of colonic stool burden. ABDOMINAL WALL: No significant hernia is appreciated. LYMPH NODES: As above, stable prominent paraesophageal lymph nodes adjacent to the hiatal hernia. VASCULAR: Normal caliber abdominal aorta. Moderate atherosclerotic disease. PELVIC VISCERA: Hysterectomy. OSSEOUS STRUCTURES: No acute or aggressive appearing osseous findings. Advanced degenerative changes of the spine and hips with very prominent subchondral cystic changes in the bilateral hips. CT/CT abdomen pelvis wo IV con IMPRESSION: 1. Stable wall thickening and trace pericolonic fat stranding in the sigmoid within a background of diverticulosis suggestive of acute uncomplicated diverticulitis. However, in view of persistency, follow-up with outpatient colonoscopy is recommended to ensure the absence of underlying colonic lesion. 2. Moderate to large degree of colonic stool burden suggesting constipation. 3. Moderate hiatal hernia with stable mildly prominent paraesophageal lymph nodes that are most likely reactive. Attention on follow-up in future examinations recommended. 4. Hepatic steatosis.
[2023-06-05 15:33] VITALS: BP 120/88; BP 122/30; PULSE 58; PULSE 64; RESP 18; TEMP 37; O2SAT 95; O2SAT 99; BMI 51.9
--- NOTE | 2023-06-05 15:35 | ED.GENADULT ---
HPI - General Adult General Chief complaint: Abdominal Pain Stated complaint: ABD PAIN,H/O DIVERTICULITIS,UNABLE TO FILL MEDS Time Seen by Provider: 06/05/23 16:55 Source: patient Mode of arrival: ambulatory Limitations: no limitations History of Present Illness HPI narrative: 72-year-old female with past medical history of diverticulitis, hypertension, asthma, the sleep apnea, irritable bowels syndrome presents to the ED for consistent lower abdominal pain similar to previous diverticulitis diagnosis. Patient was placed on antibiotics twice for diverticulitis and while during admission and hospital, hospitalist states diverticulitis was resolved and patient most likely was suffering from irritable bowel syndrome. Patient states still having pain even discharged on fentanyl and can not afford so she did not take Benadryl. Patient denies any urinary symptoms, flank pain, fever, chills, worsening abdominal pain. She states pain is the same since being admitted last admission Related Data Home Medications Medication Instructions Recorded Confirmed carvedilol 6.25 mg tablet 1 tab PO BIDWM 03/13/21 06/05/23 cetirizine 10 mg tablet 1 tab PO DAILY 03/13/21 06/05/23 ferrous sulfate 325 mg (65 mg 1 tab PO DAILY 03/13/21 06/05/23 iron) tablet levothyroxine 50 mcg tablet 1 tab PO DAILY@0600 03/13/21 06/05/23 magnesium oxide 400 mg (241.3 mg 1 tab PO DAILY 03/13/21 06/05/23 magnesium) tablet montelukast 10 mg tablet 1 tab PO BEDTIME 03/13/21 06/05/23 pregabalin 225 mg capsule 1 cap PO BID 03/13/21 06/05/23 atorvastatin 10 mg tablet 1 tab PO BEDTIME 03/14/21 06/05/23 dexlansoprazole 60 mg 60 mg PO DAILY@0630 06/07/21 06/05/23 capsule,biphase delayed release (Dexilant) losartan 25 mg tablet 25 mg PO DAILY 06/07/21 06/05/23 furosemide 40 mg tablet 80 mg PO DAILY 10/02/22 06/05/23 dicyclomine 10 mg capsule 10 mg PO TID PRN Abdominal Pain 06/02/23 06/05/23 estradiol 2 mg (7.5 mcg/24 hour) 1 vag ring vaginal Q90D 06/02/23 06/05/23 vaginal ring (Estring) fluticasone 250 mcg-salmeterol 50 1 ea inhalation BID 06/02/23 06/05/23 mcg/dose blistr powdr for inhalation (Advair Diskus) Previous Rx's Medication Instructions Recorded tramadol 50 mg tablet 50 mg PO Q6H PRN pain #20 tabs 05/18/23 nystatin 100,000 unit/gram topical 1 appl topical BID #30 grams 06/04/23 powder jntywokgw-taybmr-rxlwmkwt-scop 5 ml PO QID #120 mL 06/04/23 16.2 mg-0.1037 mg-0.0194 mg/5 mL elixir () Allergies Allergy/AdvReac Type Severity Reaction Status Date / Time celecoxib [From CELEBREX] Allergy Unknown RASH Verified 06/05/23 15:37 Latex, Natural Rubber Allergy Unknown Rash Verified 06/05/23 15:37 ibuprofen [IBUPROFEN] AdvReac Intermediate RASH Verified 06/05/23 15:37 Review of Systems Review of Systems: Constant lower abdominal pain. Yes all other systems are reviewed and are negative [facility] Past Medical History Medical History Respiratory failure Interstitial lung disease Seasonal allergies Diarrhea Neuropathy Asthma Hypercholesteremia GERD (gastroesophageal reflux disease) Thyroid activity decreased Hypertension Surgical History Hx of cataract surgery H/O: hysterectomy History of cholecystectomy Family History Family History Mother Asthma Father No problems noted. 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 Housing: Apartment Housing Other:: [employer] Do you presently have visiting nurse or other home services: No Unable to assess alcohol history related to: Unknown Alcohol intake: never Patient Tobacco Use Status: Never used Tobacco Smoked in Last 30 Days: No Second Hand Smoke Exposure: No Use of substances other than those prescribed or required for medical reasons: No Advance Directives: Yes Advance Directives Information Provided: No Advance Directives on File: No service: No Current occupational status: retired Physical Exam ED Vital Signs: Vital Signs - 24 hr 06/05/23 15:33 06/05/23 16:58 06/05/23 18:34 Temperature 98.6 F Pulse Rate 58 60 61 Respiratory Rate 18 20 16 Blood Pressure 122/30 L 130/31 L 119/45 L Pulse Oximetry 99 99 100 Oxygen Delivery Method Room Air Nasal Cannula Room Air Oxygen Flow Rate 3 06/05/23 19:53 06/05/23 22:38 06/05/23 23:49 Temperature 97.8 F 98.6 F 98.3 F Pulse Rate 68 65 57 Respiratory Rate 18 15 20 Blood Pressure 117/62 111/52 L 103/61 Pulse Oximetry 100 100 100 Oxygen Delivery Method Nasal Cannula Nasal Cannula Nasal Cannula Oxygen Flow Rate 3 3 2 BMI result Body Mass Index 51.9 Const General: cooperative, healthy appearing, comfortable, no acute distress, well developed, alert, awake and Physically active Orientation/consciousness: oriented to person, oriented to place, oriented to time and patient oriented x3 HENMT Head: Yes normal to inspection, Yes No palpable skull fracture present, Yes normocephalic and Yes atraumatic Eyes General: appearance normal, both eyes and all related structures Neck Neck: Yes normal visual inspection, Yes full ROM, Yes no lymphadenopathy, Yes no meningeal signs, Yes trachea midline, Yes supple, No anterior neck swelling and No tender Chest Chest palpation & inspection: normal inspection of the chest and normal palpation of entire chest wall Resp Effort & Inspection: normal respiratory effort and able to speak in complete sentences Auscultation: clear to auscultation bilaterally Cardio Jugular venous distension: no JVD Heart sounds: S1 normal heart sound present and S2 normal heart sound present GI Inspection: Yes normal to inspection Palpation (GI): Tenderness to palpation present (GI) in the LLQ and in the RLQ, no guarding and not rigid General: No CVA tenderness and Yes no CVA tenderness Back/Spine/Pelvis Back: no CVA tenderness, No CVA tenderness and No back tenderness Skin General skin exam: no rashes or lesions noted, elasticity normal and turgor normal Neuro General: oriented to person, oriented to place, oriented to time, patient oriented x3, gait normal, tone normal, moves all extremities, Normal light touch and pain sensation, no meningeal signs, no focal motor deficits, CN's II-XI intact bilaterally and normal sensation to monofilament Extrem General: Yes normal to inspection and Yes full ROM Psych Appearance: grossly normal, well kempt and not disheveled Course Course Course Narrative: This is a rapid medical exam: Additional HPI, ROS, PE not included below will be deferred to primary provider. Patient is a 72-year-old female with history of HTN, asthma/COPD on 3lpm O2 at baseline, MISSY, hypothyroid, chronic dysphagia, chronic lower extremity edema currently on second course of abx for diverticulitis presenting to the ED with complaint of lower abdominal pain. States she took her antibiotic but was unable to fill her Donnatol due to $500 cost. States immediately after discharge pain was 10/10. Patient in no acute distress in triage. Plan: labs, UA Medications Administered Discontinued Medications Generic Name Dose Route Start Last Admin Trade Name Freq PRN Reason Stop Dose Admin Sodium Chloride 1,000 mls @ 999 mls/hr 06/05/23 17:27 06/05/23 21:03 Ns IV 06/05/23 18:27 Infused .Q1H1M STA Infusion Morphine Sulfate 2 mg 06/05/23 17:22 06/05/23 18:36 Morphine Sulfate 4 Mg/Ml Cartridge IVPUSH 06/05/23 17:23 2 mg ONCE ONE Administration Protocol Medical Decision Making Medical Decision Making [facility] Narrative: 72-year-old female history of diverticulitis, irritable bowel syndrome, hypertension, asthma, presents to ED for persistent lower abdominal pain since being diagnosed with diverticulitis and being admitted for similar presentation. Patient states having diarrhea. Labs were ordered. Pain med ordered. May need repeat CT scan. Patient is not toxic appearing 12:45am: CT scan shows stable diverticulitis. Negative for any white blood cell count elevation. Patient passed p.o. challenge. Case discussed with Dr. Welch, hospitalist, and he states patient does not need to be on any other antibiotics and no need for admission. He states patient can be follow-up with gastroenterology. Urine negative for infection. Patient to be discharged Differential Diagnosis Differential Diagnoses: The differential diagnosis associated with the presentation includes (Diverticulitis, abscess,, UTI,) Admission/Observation Consideration of admission/observation: Escalation of care including admission/observation considered Consult Healthcare Provider Management of the patient was discussed with: Hospitalist (Dr. Jackson) Lab Data [facility] Lab Attestation statement: I reviewed the patient's lab results. 06/05/23 16:06 02/27/24 16:06 Labs: Lab Results 06/05/23 06/06/23 Range/Units 16:06 00:04 WBC 8.4 (4.8-10.8) X10*3/uL RBC 3.99 L (4.20-5.50) X10*6/uL Hgb 11.4 L (12.0-16.0) g/dl Hct 34.5 L (37.0-47.0) % MCV 86.5 (80.0-98.0) fL MCH 28.6 (27.0-33.0) pg MCHC 33.0 (31.0-35.0) g/dl RDW 13.8 (11.0-16.0) % Plt Count 246 (160-400) X10*3/uL MPV 10.7 (9.4-12.3) fL Immature Gran % (Auto) 0.2 (0.0-0.4) % Neut % (Auto) 73.5 H (45-73) % Lymph % (Auto) 14.3 L (20-40) % [place] % (Auto) 7.2 (2-11) % Eos % (Auto) 4.4 H (0-4) % Baso % (Auto) 0.4 (0-2) % Lymph # (Auto) 1.2 (1.2-4.9) X10*3/uL [place] # (Auto) 0.6 (0.1-1.2) X10*3/uL Eos # (Auto) 0.4 (0.0-0.4) X10*3/uL Baso # (Auto) 0.0 (0.0-0.2) X10*3/uL Abs Immat Gran (auto) 0.02 (0.00-0.03) X10*3/uL Absolute Neuts (auto) 6.2 (2.0-8.3) x10*3/uL Absolute Nucleated RBC 0.000 (0.0-0.012) X10*3/uL Nucleated RBC % (auto) 0.0 (0.0-0.2) /100WBC Sodium 140 (135-145) mmol/L Potassium 4.6 (3.3-5.1) mmol/L Chloride 96 (96-108) mmol/L Carbon Dioxide 37 H (22-29) mmol/L Anion Gap 12 (12-20) BUN 19 H (9-16) mg/dL Creatinine 1.07 (0.5-1.4) mg/dL Estim Creat Clear Calc 70.1 Estimated GFR 51 Random Glucose 99 (60-115) mg/dL Calcium 8.9 D (8.4-10.2) mg/dL Total Bilirubin 0.6 (0.0-1.0) mg/dL AST 21 (5-31) U/L ALT 10 (0-31) U/L Alkaline Phosphatase 78 (39-117) U/L Total Protein 6.8 (6.5-8.0) g/dL Albumin 3.8 (3.5-5.0) g/dL Urine Color Yellow Urine Appearance Clear Urine pH 7.5 (5.0-9.0) Ur Specific [place] 1.010 (1.005-1.025) Urine Protein Negative (Neg-Trace) mg/dL Urine Glucose (UA) Negative (Negative) mg/dL Urine Ketones Negative (Negative) mg/dL Urine Blood Negative (Negative) Urine Nitrite Negative (Negative) Ur Leukocyte Esterase Negative (Negative) Independent Interpretation I performed an independent interpretation of an: CT Scan Radiology Impression Discussion of test interpretation with radiology: I have reviewed the radiologist's reading. External Record Review External record reviewed: Other (Prior visits) Chronic Conditions Patient?s care impacted by: Diabetes Discharge Plan Discharge Clinical Impression: Diverticulitis, Abdominal pain Patient Disposition: Home, Self-Care Instructions: Diverticulitis (ED), Abdominal Pain (ED) Additional Instructions: Recommend follow-up with investor relations director. Return to the ED for worsening pain, fever, chills, nausea, vomiting, diarrhea, blood in stool, or any other concerning symptoms. Recommend follow-up primary care provider for testing of Stool sample. Hospitalists does not recommend another course of antibiotics. Continue taking your tramadol for pain relief as needed. Prescriptions: No Action atorvastatin 10 mg tablet 1 tab PO BEDTIME carvedilol 6.25 mg tablet 1 tab PO BIDWM cetirizine 10 mg tablet 1 tab PO DAILY magnesium oxide 400 mg (241.3 mg magnesium) tablet 1 tab PO DAILY levothyroxine 50 mcg tablet 1 tab PO DAILY@0600 ferrous sulfate 325 mg (65 mg iron) tablet 1 tab PO DAILY montelukast 10 mg tablet 1 tab PO BEDTIME pregabalin 225 mg capsule 1 cap PO BID furosemide 40 mg tablet 80 mg PO DAILY tramadol 50 mg tablet 50 mg PO Q6H PRN (Reason: pain) Qty: 20 0RF fluticasone propion-salmeterol [Advair Diskus] 250-50 mcg/dose blister with device 1 ea inhalation BID Estring 2 mg (7.5 mcg /24 hour) ring 1 vag ring vaginal Q90D dicyclomine 10 mg capsule 10 mg PO TID PRN (Reason: Abdominal Pain) vfruqqvfh-wjtqoq-qleftliy-scop [] 16.2-0.1037 -0.0194 mg/5 mL Elixir 5 ml PO QID Qty: 120 1RF nystatin 100,000 unit/gram Powder 1 appl topical BID Qty: 30 1RF Protocol: Apply to: Apply to: affected areas losartan 25 mg tablet 25 mg PO DAILY dexlansoprazole [Dexilant] 60 mg capsule,biphase delayed releas 60 mg PO DAILY@0630 [place] [facility] [place] [facility] [place]Provider Group] (Chronic diverticulitis) Interventions: ED Discharge Assessment Last Done: 06/06/23 02:01 Discharge Date/Time: 06/06/23 02:02 Print Language: Tamazight
[2023-06-05 16:13] LABS: MANUAL DIFF FLAG NO
[2023-06-05 16:15] LABS: Basophils Percent Auto 0.4 % (0-2); Eosinophils Absolute Auto 0.4 X10*3/uL (0.0-0.4); Eosinophils Percent Auto 4.4 % (0-4); Hematocrit 34.5 % (37.0-47.0); Hemoglobin 11.4 g/dl (12.0-16.0); Imm Gran Abs Auto 0.02 X10*3/uL (0.00-0.03); Imm Gran Pct Auto 0.2 % (0.0-0.4); Lymphocytes Absolute Auto 1.2 X10*3/uL (1.2-4.9); Lymphocytes Percent Auto 14.3 % (20-40); Mean Corpuscular Hemoglobin 28.6 pg (27.0-33.0); Mean Corpuscular Volume 86.5 fL (80.0-98.0); Mean Platelet Volume 10.7 fL (9.4-12.3); Monocytes Absolute Auto 0.6 X10*3/uL (0.1-1.2); Monocytes Percent Auto 7.2 % (2-11); Neutrophils Absolute Auto 6.2 x10*3/uL (2.0-8.3); Neutrophils Percent Auto 73.5 % (45-73); Platelet Count 246 X10*3/uL (160-400); Red Blood Count 3.99 X10*6/uL (4.20-5.50); Red Cell Distribution Width 13.8 % (11.0-16.0); White Blood Count 8.4 X10*3/uL (4.8-10.8)
[2023-06-05 16:33] LABS: Alanine Aminotransferase 10 U/L (0-31); Albumin Level 3.8 g/dL (3.5-5.0); Alkaline Phosphatase 78 U/L (39-117); Anion Gap 12 (12-20); Aspartate Amino Transferase 21 U/L (5-31); Bilirubin Total 0.6 mg/dL (0.0-1.0); Blood Urea Nitrogen 19 mg/dL (9-16); Calcium 8.9 mg/dL (8.4-10.2); Carbon Dioxide 37 mmol/L (22-29); Chloride 96 mmol/L (96-108); Creatinine Clr Calc Pharmacy 70.1; Estimated Glomerular Filt Rate 51; Glucose Random 99 mg/dL (60-115); Potassium 4.6 mmol/L (3.3-5.1); Sodium 140 mmol/L (135-145); Total Protein 6.8 g/dL (6.5-8.0)
[2023-06-05 16:58] VITALS: BP 130/31; PULSE 60; RESP 20; O2SAT 99
[2023-06-05 18:34] VITALS: BP 119/45; PULSE 61; RESP 16; O2SAT 100
[2023-06-05] MEDS: Morphine Sulfate 4 MG/ML CARTRIDGE 2 MG IVPUSH (18:36)
[2023-06-05] MEDS: 0.9 % Sodium Chloride 1,000 ML 999 ML IV (18:37)
--- NOTE | 2023-06-05 19:09 | PHA.MEDREC ---
Pharmacy Consult ? Medication Reconciliation Pharmacy has completed the medication reconciliation. Patient just discharge 06/04/23, med rec completed by internal controls manager Keith on prior admission. Patricia Belle, PharmD
[2023-06-05 19:53] VITALS: BP 117/62; PULSE 68; RESP 18; TEMP 36.6; O2SAT 100
--- NOTE | 2023-06-05 19:59 | PC.NURSE ---
this rn assumed care of pt. pt reports coming to in for abdominal pain that increased after being d/c from [facility] [place]. pt reports pain has subsided at this time. vss. pt on 3L NC baseline, sating 100%
[2023-06-05 22:38] VITALS: BP 111/52; PULSE 65; RESP 15; TEMP 37; O2SAT 100
[2023-06-05 23:49] VITALS: BP 103/61; PULSE 57; RESP 20; TEMP 36.8; O2SAT 100
[2023-06-06 00:15] LABS: Appearance Urine Clear; Color Urine Yellow; Glucose Urine UA Negative (Negative); Leukocyte Esterase Urine Negative (Negative); Nitrite Urine Negative (Negative); PH 7.5 (5.0-9.0); Urine Blood Negative (Negative); Urine Ketones Negative (Negative); Urine Protein Negative (Neg-Trace)
[2023-06-06 02:01] VITALS: BP 120/36; PULSE 62; RESP 17; TEMP 36.4; O2SAT 100
== END 2023-06-06 02:02 | disposition home or self-care (01) ==
PROVIDERS: Registered Nurse Emergency; Emergency Provider Emergency Medicine Emergency Medical Services; PCP Internal Medicine
DX: K57.32 Diverticulitis of large intestine without perforation or abscess without bleeding (principal); R10.30 Lower abdominal pain, unspecified; R11.2 Nausea with vomiting, unspecified; Z79.899 Other long term (current) drug therapy
CPT/HCPCS: 36415; 74176; 80053; 81003; 85025; 96361; 96374; 99284; J2270

== ENCOUNTER 2023-06-25 01:55 | Emergency (ER) | payer MEDICARE, MEDICAID, SELFPAY ==
--- NOTE | ~2023-06-25 | CT_ITS ---
EXAMINATION: CT ABDOMEN AND PELVIS WITH CONTRAST CLINICAL INFORMATION: Left lower quadrant pain. History of diverticulitis. COMPARISON: 06/05/2023 TECHNIQUE: Multidetector volumetric images were obtained from the superior aspect of the liver through the pubic symphysis following administration 85 mL of Omnipaque 350 intravenous contrast. Sagittal and coronal reformatted images were obtained on the technologist's workstation. Oral contrast: No This CT examination was performed using dose optimization techniques as appropriate, variously including the following: *Automated exposure control *Adjustment of mA and/or kV according to patient size (this includes techniques or standardized protocols for targeted exams where dose is matched to indication/reason for exam; i.e. extremities or head) *Use of iterative reconstruction technique DLP: 1679 mGy-cm FINDINGS: LUNG BASES: There is scarring at both lung bases. LIVER, GALLBLADDER, AND BILIARY TREE: The liver is normal in size, shape, and attenuation. No focal hepatic lesion or biliary ductal dilatation is present. There has been a prior cholecystectomy. PANCREAS: Partially fatty infiltrated. SPLEEN: Unremarkable. ADRENAL GLANDS: Unremarkable. KIDNEYS AND URETERS: The kidneys are normal in size, shape, and attenuation. No hydronephrosis, hydroureter, or calculi seen. No perinephric stranding. There is a subcentimeter cyst lower pole right kidney. BLADDER: Unremarkable. GASTROINTESTINAL TRACT: There is retained stool. There are diverticula of the descending and the proximal sigmoid colon with associated colonic thickening particularly of the proximal sigmoid. There is a moderate hiatal hernia. The appendix is visualized and is within normal limits. ABDOMINAL WALL: No significant hernia is appreciated. LYMPH NODES: Normal. VASCULAR: Unremarkable. PELVIC VISCERA: Unremarkable. OSSEOUS STRUCTURES: There is diffuse thoracolumbar disc degenerative change with multilevel lumbar spinal canal narrowing. There is severe left hip and moderate right hip degenerative change. CT/CT abdomen pelvis w IV con IMPRESSION: 1. Diverticulosis of the descending and proximal sigmoid colon with associated colonic thickening particularly of the proximal sigmoid. This could reflect a chronic diverticular process/mild diverticulitis. 2. Moderate hiatal hernia. Fleischner guidelines were followed.
[2023-06-25 02:07] VITALS: BP 140/78; PULSE 65; O2SAT 99
[2023-06-25 02:10] VITALS: BMI 52.0
--- NOTE | 2023-06-25 02:11 | ECG_ITS ---
Test Reason : SOB Blood Pressure : / mmHG Vent. Rate : 060 BPM Atrial Rate : 000 BPM P-R Int : 000 ms QRS Dur : 148 ms QT Int : 514 ms P-R-T Axes : 000 -57 053 degrees QTc Int : 514 ms Artifact in tracing Undetermined rhythm - possibly sinus Right bundle branch block Left anterior fascicular block Bifascicular block Abnormal ECG When compared with ECG of 21-NOV-2022 00:40, No significant changes seen Referred By: Tiffani Beaver Electronically Signed By:TISH LEMUS
--- NOTE | 2023-06-25 02:13 | ED.ABDPAIN ---
HPI - Abdominal Pain General Chief Complaint: Abdominal Pain Stated Complaint: abdominal pain Time Seen by Provider: 06/25/23 02:06 Source: patient Mode of arrival: EMS Limitations: no limitations History of Present Illness HPI narrative: Patient comes in the emergency room complaining of abdominal pain. Patient states it started approximately 2 hours ago. Patient states she has had 4 episodes of diarrhea, no vomiting. Of note, 3 weeks ago, patient was discharged from the hospital for diverticulitis. Today, patient also complaining of dysuria Related Data Home Medications Medication Instructions Recorded Confirmed carvedilol 6.25 mg tablet 1 tab PO BIDWM 03/13/21 06/05/23 cetirizine 10 mg tablet 1 tab PO DAILY 03/13/21 06/05/23 ferrous sulfate 325 mg (65 mg 1 tab PO DAILY 03/13/21 06/05/23 iron) tablet levothyroxine 50 mcg tablet 1 tab PO DAILY@0600 03/13/21 06/05/23 magnesium oxide 400 mg (241.3 mg 1 tab PO DAILY 03/13/21 06/05/23 magnesium) tablet montelukast 10 mg tablet 1 tab PO BEDTIME 03/13/21 06/05/23 pregabalin 225 mg capsule 1 cap PO BID 03/13/21 06/05/23 atorvastatin 10 mg tablet 1 tab PO BEDTIME 03/14/21 06/05/23 dexlansoprazole 60 mg 60 mg PO DAILY@0630 06/07/21 06/05/23 capsule,biphase delayed release (Dexilant) losartan 25 mg tablet 25 mg PO DAILY 06/07/21 06/05/23 furosemide 40 mg tablet 80 mg PO DAILY 10/02/22 06/05/23 dicyclomine 10 mg capsule 10 mg PO TID PRN Abdominal Pain 06/02/23 06/05/23 estradiol 2 mg (7.5 mcg/24 hour) 1 vag ring vaginal Q90D 06/02/23 06/05/23 vaginal ring (Estring) fluticasone 250 mcg-salmeterol 50 1 ea inhalation BID 06/02/23 06/05/23 mcg/dose blistr powdr for inhalation (Advair Diskus) Previous Rx's Medication Instructions Recorded tramadol 50 mg tablet 50 mg PO Q6H PRN pain #20 tabs 05/18/23 nystatin 100,000 unit/gram topical 1 appl topical BID #30 grams 06/04/23 powder jcbshznqm-zuiymg-okzyxbwn-scop 5 ml PO QID #120 mL 06/04/23 16.2 mg-0.1037 mg-0.0194 mg/5 mL elixir () Allergies Allergy/AdvReac Type Severity Reaction Status Date / Time celecoxib [From CELEBREX] Allergy Unknown RASH Verified 06/25/23 03:56 Latex, Natural Rubber Allergy Unknown Rash Verified 06/25/23 03:56 ibuprofen [IBUPROFEN] AdvReac Intermediate RASH Verified 06/25/23 03:56 Review of Systems Review of Systems Constitutional : No Weight loss, No Fever, No Chills, No Night Sweats, No Fatigue, No Malaise ENT/Mouth : No Hearing loss, No Ear Pain, No Nasal Congestion, No Sinus Pain, No Hoarseness, No sore throat, No Rhinorrhea, No Swallowing Difficulty Eyes: No Eye Pain, No Swelling, No Redness, No Foreign Body, No Discharge, No Vision Changes Cardiovascular : No Chest Pain, No SOB, No Dyspnea on Exertion, No Orthopnea, No Edema, No Palpitations Respiratory : No Cough, No Sputum, No Wheezing, No Smoke Exposure, No Dyspnea Gastrointestinal : Denies nausea vomiting, complaining of diarrhea and bilateral lower quadrant pain. Genitourinary : no irregular bleeding, No Dysuria, No Urinary Frequency, No Hematuria, No Urinary Incontinence, No Urgency, No Flank Pain, No Urinary Flow Changes, No Hesitancy Musculoskeletal : No joint pain, No Myalgias, No Joint Swelling Skin : No Skin Lesions, No rash Neuro : No Weakness, No Numbness, No Paresthesias, No Loss of Consciousness, No Dizziness, No Headache Psych : No Anxiety/Panic, No Depression, No SI/HI/AH/VH, No Social Issues, Heme/Lymph: No Bruising, No Bleeding,No Lymphadenopathy Endocrine : No Polyuria, No Polydipsia, No Temperature Intolerance [facility] Past Medical History Medical History Respiratory failure Interstitial lung disease Seasonal allergies Diarrhea Neuropathy Asthma Hypercholesteremia GERD (gastroesophageal reflux disease) Thyroid activity decreased Hypertension Surgical History Hx of cataract surgery H/O: hysterectomy History of cholecystectomy Family History Family History Mother Asthma Father No problems noted. 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 Housing: Apartment Housing Other:: [employer] Do you presently have visiting nurse or other home services: No Unable to assess alcohol history related to: Unknown Alcohol intake: never Patient Tobacco Use Status: Never used Tobacco Second Hand Smoke Exposure: No Advance Directives: No Advance Directives Information Provided: No service: No Current occupational status: retired Physical Exam ED Vital Signs: Vital Signs - 24 hr 06/25/23 02:21 06/25/23 05:31 Temperature 98.1 F 98.0 F Pulse Rate 61 75 Respiratory Rate 14 16 Blood Pressure 111/60 119/53 L Pulse Oximetry 100 99 Oxygen Delivery Method Nasal Cannula Nasal Cannula Oxygen Flow Rate 4 3 BMI result Body Mass Index 52.0 Const Other: Appearance: Alert. Oriented X3. No acute distress. Eyes: Pupils equal, round and reactive to light. ENT: Pharynx normal. Neck: Normal inspection. Neck supple. No lymph nodes noted. No crepitus CVS: Normal heart rate and rhythm. Pulses normal. Normal S1 and S2 Respiratory: No respiratory distress. Breath sounds normal. No Wheezing. No rales Abdomen: Soft , moderate tenderness to palpation in both lower quadrants. No rigidity. No distention. Skin: Skin warm and dry. Normal skin color. Normal skin turgor. Extremities: No lower extremity edema. No Lacerations. No Rash Neuro: Oriented X 3. No motor deficit. No sensory deficit. Moving all extremities. No slurred speech. CN 2 through 12 grossly intact Psych: calm, cooperative, normal affect Course Course Course Narrative: -all of patient's labs and imaging pending Medical Decision Making Medical Decision Making MDM Narrative: -my interpretation of labs: hematology and chemistry, at baseline -my interpretation of CT scan, no obvious abnormality. -CT scan report: There could be a chronic diverticular process/mild diverticulitis -I discussed the CT scan report and labs with the patient, patient feels comfortable taking p.o. antibiotics and being discharged home. Pain is well under control at this time. Differential Diagnosis Differential Diagnoses: The differential diagnosis associated with the presentation includes (SBO, incarcerated hernia, diverticulitis, functional abdominal pain, gastroenteritis) Admission/Observation Consideration of admission/observation: Escalation of care including admission/observation considered (Given patient's history and presentation, admission considered) Lab Data MDM Lab Attestation statement: I reviewed the patient's lab results. 06/25/23 04:53 06/25/23 03:21 Labs: Lab Results 06/25/23 06/25/23 Range/Units 03:21 04:53 WBC 8.9 (4.8-10.8) X10*3/uL RBC 3.98 L (4.20-5.50) X10*6/uL Hgb 11.5 L (12.0-16.0) g/dl Hct 34.9 L (37.0-47.0) % MCV 87.7 (80.0-98.0) fL MCH 28.9 (27.0-33.0) pg MCHC 33.0 (31.0-35.0) g/dl RDW 13.9 (11.0-16.0) % Plt Count 233 (160-400) X10*3/uL MPV 10.6 (9.4-12.3) fL Immature Gran % (Auto) 0.2 (0.0-0.4) % Neut % (Auto) 61.1 (45-73) % Lymph % (Auto) 25.7 (20-40) % [place] % (Auto) 8.8 (2-11) % Eos % (Auto) 3.7 (0-4) % Baso % (Auto) 0.5 (0-2) % Lymph # (Auto) 2.3 (1.2-4.9) X10*3/uL [place] # (Auto) 0.8 (0.1-1.2) X10*3/uL Eos # (Auto) 0.3 (0.0-0.4) X10*3/uL Baso # (Auto) 0.0 (0.0-0.2) X10*3/uL Abs Immat Gran (auto) 0.02 (0.00-0.03) X10*3/uL Absolute Neuts (auto) 5.4 (2.0-8.3) x10*3/uL Absolute Nucleated RBC 0.000 (0.0-0.012) X10*3/uL Nucleated RBC % (auto) 0.0 (0.0-0.2) /100WBC Sodium 138 (135-145) mmol/L Potassium 3.7 (3.3-5.1) mmol/L Chloride 97 (96-108) mmol/L Carbon Dioxide 30 H (22-29) mmol/L Anion Gap 15 (12-20) BUN 19 H (9-16) mg/dL Creatinine 1.14 (0.5-1.4) mg/dL Estim Creat Clear Calc TNP Estimated GFR 47 Random Glucose 85 (60-115) mg/dL Lactic Acid 0.6 (0.5-2.0) mmol/L Calcium 8.1 L D (8.4-10.2) mg/dL Total Bilirubin 0.3 (0.0-1.0) mg/dL Direct Bilirubin 0.1 (0.0-0.5) mg/dL AST 15 (5-31) U/L ALT 10 (0-31) U/L Alkaline Phosphatase 67 (39-117) U/L Total Protein 6.4 L (6.5-8.0) g/dL Albumin 3.5 (3.5-5.0) g/dL Lipase 18 (8-78) U/L Independent Interpretation I performed an independent interpretation of an: EKG (My interpretation of EKG: Poor quality EKG, patient shaking, bifascicular block, a rate 60, no ST segment depression or elevation, no T-wave inversion, QTC 514) Medications Administered Discontinued Medications Generic Name Dose Route Start Last Admin Trade Name Love PRN Reason Stop Dose Admin Sodium Chloride 1,000 mls @ 999 mls/hr 06/25/23 02:11 06/25/23 03:50 Ns IVCONT 06/25/23 03:11 999 mls/hr .Q1H1M ONE Administration Iohexol 100 ml 06/25/23 04:22 06/25/23 04:23 Iohexol 350 Mg/Ml 100 Ml Infus..Btl IV 06/25/23 04:23 100 ml ONCE ONE Administration Morphine Sulfate 4 mg 06/25/23 02:11 06/25/23 03:52 Morphine Sulfate 4 Mg/Ml Cartridge IVPUSH 03/18/24 02:12 4 mg ONCE ONE Administration Protocol Ondansetron HCl 4 mg 06/25/23 02:11 06/25/23 03:52 Ondansetron Hcl 4 Mg/2 Ml Vial IVPUSH 06/25/23 02:12 4 mg ONCE ONE Administration Critical Care Time Critical Care Time Critical Care Time: Yes Total Critical Care Time: 45 Attestation: I have personally provided critical care time. Time includes review of lab data, radiology results, discussion with consultants, and monitoring for potential decompensation. Intervention performed as documented. Discharge Plan Discharge Clinical Impression: Diverticulitis Patient Disposition: Home, Self-Care Instructions: Diverticulitis (ED), Diverticulitis Diet (ED) Additional Instructions: Please follow-up with your primary care physician tomorrow. If you have any worsening or new symptoms, please return to the emergency room or call 911 Prescriptions: No Action atorvastatin 10 mg tablet 1 tab PO BEDTIME carvedilol 6.25 mg tablet 1 tab PO BIDWM cetirizine 10 mg tablet 1 tab PO DAILY magnesium oxide 400 mg (241.3 mg magnesium) tablet 1 tab PO DAILY levothyroxine 50 mcg tablet 1 tab PO DAILY@0600 ferrous sulfate 325 mg (65 mg iron) tablet 1 tab PO DAILY montelukast 10 mg tablet 1 tab PO BEDTIME pregabalin 225 mg capsule 1 cap PO BID furosemide 40 mg tablet 80 mg PO DAILY tramadol 50 mg tablet 50 mg PO Q6H PRN (Reason: pain) Qty: 20 0RF fluticasone propion-salmeterol [Advair Diskus] 250-50 mcg/dose blister with device 1 ea inhalation BID Estring 2 mg (7.5 mcg /24 hour) ring 1 vag ring vaginal Q90D dicyclomine 10 mg capsule 10 mg PO TID PRN (Reason: Abdominal Pain) ghhqnixtg-vnosyd-ufjeccgt-scop [] 16.2-0.1037 -0.0194 mg/5 mL Elixir 5 ml PO QID Qty: 120 1RF nystatin 100,000 unit/gram Powder 1 appl topical BID Qty: 30 1RF Protocol: Apply to: Apply to: affected areas losartan 25 mg tablet 25 mg PO DAILY dexlansoprazole [Dexilant] 60 mg capsule,biphase delayed releas 60 mg PO DAILY@0630
[2023-06-25 02:21] VITALS: BP 111/60; PULSE 61; RESP 14; TEMP 36.7; O2SAT 100
[2023-06-25 03:38] LABS: Lactic Acid 0.6 mmol/L (0.5-2.0)
[2023-06-25 03:44] LABS: Alanine Aminotransferase 10 U/L (0-31); Albumin Level 3.5 g/dL (3.5-5.0); Alkaline Phosphatase 67 U/L (39-117); Anion Gap 15 (12-20); Aspartate Amino Transferase 15 U/L (5-31); Bilirubin Direct 0.1 mg/dL (0.0-0.5); Bilirubin Total 0.3 mg/dL (0.0-1.0); Blood Urea Nitrogen 19 mg/dL (9-16); Calcium 8.1 mg/dL (8.4-10.2); Carbon Dioxide 30 mmol/L (22-29); Chloride 97 mmol/L (96-108); Estimated Glomerular Filt Rate 47; Glucose Random 85 mg/dL (60-115); Lipase 18 U/L (8-78); Potassium 3.7 mmol/L (3.3-5.1); Sodium 138 mmol/L (135-145); Total Protein 6.4 g/dL (6.5-8.0)
[2023-06-25] MEDS: 0.9 % Sodium Chloride 1,000 ML 999 ML IVCONT (03:50)
[2023-06-25] MEDS: ondansetron HCL 4 MG/2 ML VIAL IVPUSH (03:52)
[2023-06-25] MEDS: Morphine Sulfate 4 MG/ML CARTRIDGE IVPUSH (03:52)
[2023-06-25] MEDS: iohexoL 350 MG/ML 100 ML INFUS..BTL IV (04:23)
[2023-06-25 04:58] LABS: Basophils Percent Auto 0.5 % (0-2); Eosinophils Absolute Auto 0.3 X10*3/uL (0.0-0.4); Eosinophils Percent Auto 3.7 % (0-4); Hematocrit 34.9 % (37.0-47.0); Hemoglobin 11.5 g/dl (12.0-16.0); Imm Gran Abs Auto 0.02 X10*3/uL (0.00-0.03); Imm Gran Pct Auto 0.2 % (0.0-0.4); Lymphocytes Absolute Auto 2.3 X10*3/uL (1.2-4.9); Lymphocytes Percent Auto 25.7 % (20-40); MANUAL DIFF FLAG NO; Mean Corpuscular Hemoglobin 28.9 pg (27.0-33.0); Mean Corpuscular Volume 87.7 fL (80.0-98.0); Mean Platelet Volume 10.6 fL (9.4-12.3); Monocytes Absolute Auto 0.8 X10*3/uL (0.1-1.2); Monocytes Percent Auto 8.8 % (2-11); Neutrophils Absolute Auto 5.4 x10*3/uL (2.0-8.3); Neutrophils Percent Auto 61.1 % (45-73); Platelet Count 233 X10*3/uL (160-400); Red Blood Count 3.98 X10*6/uL (4.20-5.50); Red Cell Distribution Width 13.9 % (11.0-16.0); White Blood Count 8.9 X10*3/uL (4.8-10.8)
[2023-06-25 05:31] VITALS: BP 119/53; PULSE 75; RESP 16; TEMP 36.7; O2SAT 99
[2023-06-25] MEDS: Amoxicillin/Potassium Clav 500 MG TABLET PO (06:15)
[2023-06-25 06:23] VITALS: BP 116/56; PULSE 61; RESP 18; TEMP 36.8; O2SAT 99
--- NOTE | 2023-06-25 06:24 | MHC.EDTECH ---
call out to mamie at 0623 to book transport for pt back home, estimate eta given was 07
== END 2023-06-25 08:04 | disposition home or self-care (01) ==
PROVIDERS: Emergency Provider Emergency Medicine; PCP Internal Medicine
DX: K57.92 Diverticulitis of intestine, part unspecified, without perforation or abscess without bleeding (principal); R30.0 Dysuria; I10 Essential (primary) hypertension
CPT/HCPCS: 36415; 74177; 80048; 80076; 83605; 83690; 85025; 87040; 93005; 96361; 96374; 96375; 99284; 99285; J2270; J2405; Q9967

== ENCOUNTER → 2023-06-25 02:11 | Outpatient (BNV) | payer MEDICARE, MEDICAID, SELFPAY | PROVIDERS: Emergency Provider Emergency Medicine; PCP Internal Medicine; Visit Provider Internal Medicine | DX: I45.10 Unspecified right bundle-branch block (principal); I44.4 Left anterior fascicular block | CPT/HCPCS: 93010 ==

== ENCOUNTER 2023-06-26 13:29 | Outpatient (AMB) | payer MEDICARE, MEDICAID, SELFPAY ==
--- NOTE | 2023-06-26 13:39 | A.OFFVIS_ITS ---
Intake Vital Signs 06/26/23 13:45 Height 5 ft 6 in Weight 321 lb 13.998 oz BMI 51.9 BP 118/72 Blood Pressure Location Lt brachial Position Sitting Intake Visit Reasons: 4 wks f/u diverticulitis Intake Note: Patient is seen in office one month follow up visit, following diverticulitis. 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 Accompanied by: Other Relationship Allergies celecoxib [From CELEBREX] Allergy (Unknown, Verified 06/26/23 13:39) RASH Latex, Natural Rubber Allergy (Unknown, Verified 06/26/23 13:39) Rash ibuprofen [IBUPROFEN] Adverse Reaction (Intermediate, Verified 06/26/23 13:39) RASH Medication List - Last Reconciled 06/26/23 by Jw Martinez MD amoxicillin-pot clavulanate 500-125 mg (Augmentin) 1 tab PO BID atorvastatin 1 tab PO BEDTIME carvedilol 1 tab PO BIDWM cetirizine 1 tab PO DAILY dexlansoprazole (Dexilant) 60 mg PO DAILY@0630 dicyclomine 10 mg PO TID PRN estradiol (Estring) 1 vag ring vaginal Q90D ferrous sulfate 1 tab PO DAILY fluticasone propion-salmeterol 250-50 mcg/dose (Advair Diskus) 1 ea inhalation BID furosemide 80 mg PO DAILY levothyroxine 1 tab PO DAILY@0600 losartan 25 mg PO DAILY magnesium oxide 1 tab PO DAILY montelukast 1 tab PO BEDTIME nystatin 1 appl See Protocol topical BID nmekgrsho-dlppnf-twiuopux-scop 16.2-0.1037 -0.0194 mg/5 mL () 5 mL PO QID pregabalin 1 cap PO BID tramadol 50 mg PO Q6H PRN HPI HPI Comments History of Present Illness Details 72-year-old female patient presenting wi th complaints of abdominal pain mainly in the right lower quadrant and suprapubic region previously evaluated emergency department on 05/17/2023. Her past history is significant for sleep apnea, hypertension, asthma, and severe arthritis. She presents to the office today on stretcher from home. While in the emergency department she was noted to have tenderness in the right lower quadrant and left lower quadrant. Workup with CT abdomen and pelvis revealed an area of uncomplicated sigmoid diverticulitis. She was discharged home on Cipro and Flagyl for 10 days. She was seen 1 month ago and continued to have abdominal pain. This morning she continues to report abdominal pain in the left lower quadrant with loose stool on a daily basis. She does not feel improved after the extended antibiotics. A repeat CT abdomen and pelvis performed yesterday confirms continued thickening of the sigmoid colon and distal descending colon suggestive of chronic changes. No abscess is identified. [facility] Medical History Respiratory failure Interstitial lung disease Seasonal allergies Diarrhea Neuropathy Asthma Hypercholesteremia GERD (gastroesophageal reflux disease) Thyroid activity decreased Hypertension Surgical History Hx of cataract surgery H/O: hysterectomy History of cholecystectomy Family History Mother Asthma Father No problems noted. 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 Housing: Apartment Housing Other:: [employer] heights Do you presently have visiting nurse or other home services: No Unable to assess alcohol history related to: Unknown Alcohol intake: never Patient Tobacco Use Status: Never used Tobacco Second Hand Smoke Exposure: No service: No Current occupational status: retired Review of Systems Const All systems reviewed & are unremarkable except as noted in HPI and below Physical Exam Const General: no acute distress Nutritional Appearance: obese Orientation/consciousness: patient oriented x3 Limitations: other limitations (In stretcher) HEENT Head: Yes normocephalic and Yes atraumatic Resp Effort & Inspection: normal respiratory effort GI Inspection: Yes normal to inspection and Yes Abdominal panniculus present Palpation (GI): Soft to palpation, Tenderness to palpation present (GI) in the RLQ; with no rebound tenderness and Rovsing's sign negative, no guarding and not rigid Percussion: Yes normal to percussion Auscultation: normal bowel sounds Rectal Exam - Female: deferred Neuro General: patient oriented x3 Extrem General: Yes edema Assessment & Plan Assessment & Plan (1) Diverticulitis: Code(s): K57.92 - Diverticulitis of intestine, part unspecified, without perforation or abscess without bleeding Plan 72-year-old female patient presenting with chronic sigmoid thickening from diverticulitis/diverticular changes. Her symptoms are persistent with continued tenderness in the left lower quadrant. Repeat CT scan continues to show thickening of the sigmoid colon as noted above, which is unlikely to improve with continued antibiotics. We discussed the options of continued observation verses hand assisted laparoscopic sigmoid colectomy. After discussion of the procedure, risks, and alternatives, she consents to the hand assisted laparoscopic sigmoid colectomy. This will be scheduled as a short-stay admit. Coding Level of Care Code Est Pt Level 4 (44264) Diagnoses Diverticulitis K57.92
[2023-06-26 13:45] VITALS: BP 118/72; BMI 51.9
== END 2023-06-26 14:40 | disposition home or self-care (01) ==
PROVIDERS: PCP Internal Medicine; Visit Provider Surgery
DX: K57.92 Diverticulitis of intestine, part unspecified, without perforation or abscess without bleeding (principal)
CPT/HCPCS: 99214

== ENCOUNTER → 2023-06-26 13:29 | Outpatient (BNVA) | payer MEDICARE, MEDICAID, SELFPAY | PROVIDERS: PCP Internal Medicine; Visit Provider Surgery | DX: K57.92 Diverticulitis of intestine, part unspecified, without perforation or abscess without bleeding (principal); Z90.49 Acquired absence of other specified parts of digestive tract | CPT/HCPCS: 99212 ==

== ENCOUNTER 2023-06-28 23:42 | Emergency (ER) | payer MEDICARE, MEDICAID, SELFPAY ==
[2023-06-28 23:58] VITALS: BP 122/54; BP 140/62; PULSE 62; PULSE 63; RESP 16; TEMP 36.4; O2SAT 100; O2SAT 99; BMI 53.6
--- NOTE | 2023-06-29 00:09 | ED.ABDPAIN ---
HPI - Abdominal Pain General Chief Complaint: Abdominal Pain Stated Complaint: abd pain 1month Time Seen by Provider: 06/29/23 00:02 Source: patient Mode of arrival: EMS Limitations: no limitations History of Present Illness HPI narrative: Patient history of diverticulitis been here multiple times since 05/17/2023 for left lower abdominal pain had 4 CT scan so far last 1 was on 06/24which showed mild diverticulosis/diverticulitis started on Augmentin comes here as pain is still there nauseated vomited once earlier today been eating okay did not have bowel movement today no fever no chills no blood in the stool Related Data Home Medications Medication Instructions Recorded Confirmed carvedilol 6.25 mg tablet 1 tab PO BIDWM 03/13/21 06/26/23 cetirizine 10 mg tablet 1 tab PO DAILY 03/13/21 06/26/23 ferrous sulfate 325 mg (65 mg 1 tab PO DAILY 03/13/21 06/26/23 iron) tablet levothyroxine 50 mcg tablet 1 tab PO DAILY@0600 03/13/21 06/26/23 magnesium oxide 400 mg (241.3 mg 1 tab PO DAILY 03/13/21 06/26/23 magnesium) tablet montelukast 10 mg tablet 1 tab PO BEDTIME 03/13/21 06/26/23 pregabalin 225 mg capsule 1 cap PO BID 03/13/21 06/26/23 atorvastatin 10 mg tablet 1 tab PO BEDTIME 03/14/21 06/26/23 dexlansoprazole 60 mg 60 mg PO DAILY@0630 06/07/21 06/26/23 capsule,biphase delayed release (Dexilant) losartan 25 mg tablet 25 mg PO DAILY 06/07/21 06/26/23 furosemide 40 mg tablet 80 mg PO DAILY 10/02/22 06/26/23 dicyclomine 10 mg capsule 10 mg PO TID PRN Abdominal Pain 06/02/23 06/26/23 estradiol 2 mg (7.5 mcg/24 hour) 1 vag ring vaginal Q90D 06/02/23 06/26/23 vaginal ring (Estring) fluticasone 250 mcg-salmeterol 50 1 ea inhalation BID 06/02/23 06/26/23 mcg/dose blistr powdr for inhalation (Advair Diskus) Previous Rx's Medication Instructions Recorded tramadol 50 mg tablet 50 mg PO Q6H PRN pain #20 tabs 05/18/23 nystatin 100,000 unit/gram topical 1 appl topical BID #30 grams 06/04/23 powder fqyitlbgo-gudgcm-pjvrxhfi-scop 5 ml PO QID #120 mL 06/04/23 16.2 mg-0.1037 mg-0.0194 mg/5 mL elixir () amoxicillin 500 mg-potassium 1 tab PO BID #20 tabs 06/25/23 clavulanate 125 mg tablet (Augmentin) erythromycin 500 mg tablet 1 g (2 x 500 mg) PO TID #6 tabs 06/26/23 neomycin 500 mg tablet 1 g (2 x 500 mg) PO TID 3 doses #6 06/26/23 tabs polyethylene glycol 3350 17 17 g PO .COMPLEX #238 grams 06/26/23 gram/dose oral powder (Miralax) Allergies Allergy/AdvReac Type Severity Reaction Status Date / Time celecoxib [From CELEBREX] Allergy Unknown RASH Verified 06/28/23 23:58 Latex, Natural Rubber Allergy Unknown Rash Verified 06/28/23 23:58 ibuprofen [IBUPROFEN] AdvReac Intermediate RASH Verified 06/28/23 23:58 Review of Systems Review of Systems Yes all other systems are reviewed and are negative PMFSH Past Medical History Medical History Respiratory failure Interstitial lung disease Seasonal allergies Diarrhea Neuropathy Asthma Hypercholesteremia GERD (gastroesophageal reflux disease) Thyroid activity decreased Hypertension Surgical History Hx of cataract surgery H/O: hysterectomy History of cholecystectomy Family History Family History Mother Asthma Father No problems noted. 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 Housing: Apartment Housing Other:: [employer] Do you presently have visiting nurse or other home services: No Unable to assess alcohol history related to: Unknown Alcohol intake: never Patient Tobacco Use Status: Never used Tobacco Smoked in Last 30 Days: No Second Hand Smoke Exposure: No Use of substances other than those prescribed or required for medical reasons: No Advance Directives: No Advance Directives Information Provided: Yes service: No Current occupational status: retired Physical Exam ED Vital Signs: Vital Signs - 24 hr 06/28/23 23:58 06/29/23 01:59 Temperature 97.6 F 97.9 F Pulse Rate 63 63 Respiratory Rate 16 17 Blood Pressure 122/54 L 124/48 L Pulse Oximetry 100 100 Oxygen Delivery Method Nasal Cannula Nasal Cannula BMI result Body Mass Index 53.6 Appearance: Alert. Oriented X3. No acute distress. Obese Eyes: No pallor or icterus ENT: Pharynx normal. Oral Mucosa moist Neck: Normal inspection. Neck supple. CVS: Normal heart rate and rhythm. Pulses normal. Respiratory: No respiratory distress. Equal air entry bilateral, no wheezing/rales/rhonchi Abdomen: Soft, mild deep tenderness left lower quadrant no guarding or rebound tenderness Bowel sounds are present, no mass palpable, no CVA tenderness Skin: Skin warm and dry. Normal skin color. Normal skin turgor. Extremities: No lower extremity edema. No calf tenderness Neuro: Oriented X 3. Medical Decision Making Medical Decision Making [facility] Narrative: Patient with mild discomfort left lower quadrant with previous CT scan showed mild diverticulitis/diverticulosis no signs of acute abdomen. Will do CBC and CRP to to check any inflammation at this time Patient's slightly elevated C-reactive protein Augmentin will discharge patient continue same medication follow with PCP Admission/Observation Consideration of admission/observation: Escalation of care including admission/observation considered Lab Data [facility] Lab Attestation statement: I reviewed the patient's lab results. 06/29/23 00:47 06/29/23 00:47 Labs: Lab Results 06/29/23 Range/Units 00:47 WBC 9.1 (4.8-10.8) X10*3/uL RBC 3.72 L (4.20-5.50) X10*6/uL Hgb 10.6 L (12.0-16.0) g/dl Hct 32.6 L (37.0-47.0) % MCV 87.6 (80.0-98.0) fL MCH 28.5 (27.0-33.0) pg MCHC 32.5 (31.0-35.0) g/dl RDW 14.0 (11.0-16.0) % Plt Count 233 (160-400) X10*3/uL MPV 10.3 (9.4-12.3) fL Immature Gran % (Auto) 0.4 (0.0-0.4) % Neut % (Auto) 66.9 (45-73) % Lymph % (Auto) 21.1 (20-40) % [place] % (Auto) 8.5 (2-11) % Eos % (Auto) 2.9 (0-4) % Baso % (Auto) 0.2 (0-2) % Lymph # (Auto) 1.9 (1.2-4.9) X10*3/uL [place] # (Auto) 0.8 (0.1-1.2) X10*3/uL Eos # (Auto) 0.3 (0.0-0.4) X10*3/uL Baso # (Auto) 0.0 (0.0-0.2) X10*3/uL Abs Immat Gran (auto) 0.04 H (0.00-0.03) X10*3/uL Absolute Neuts (auto) 6.1 (2.0-8.3) x10*3/uL Absolute Nucleated RBC 0.000 (0.0-0.012) X10*3/uL Nucleated RBC % (auto) 0.0 (0.0-0.2) /100WBC Sodium 140 (135-145) mmol/L Potassium 3.6 (3.3-5.1) mmol/L Chloride 99 (96-108) mmol/L Carbon Dioxide 34 H (22-29) mmol/L Anion Gap 11 L (12-20) BUN 15 (9-16) mg/dL Creatinine 1.08 (0.5-1.4) mg/dL Estim Creat Clear Calc 68.4 Estimated GFR 50 Random Glucose 94 (60-115) mg/dL Calcium 8.3 L (8.4-10.2) mg/dL C-Reactive Protein 2.32 H (< or = 0.50) mg/dL Medications Administered Discontinued Medications Generic Name Dose Route Start Last Admin Trade Name Freq PRN Reason Stop Dose Admin Oxycodone HCl 10 mg 06/29/23 00:28 06/29/23 02:01 Oxycodone Hcl Immed Release 5 Mg Tablet PO 06/29/23 00:29 10 mg ONCE ONE Administration Discharge Plan Discharge Clinical Impression: Diverticulosis, Acute diverticulitis Patient Disposition: Home, Self-Care Instructions: Diverticulosis (ED) Additional Instructions: Your pain in the lower abdomen from diverticulosis slight inflammation continue antibiotic as prescribed during last visit continue tramadol for severe pain Report to the ER if high fever/vomiting/blood in the stool Prescriptions: No Action atorvastatin 10 mg tablet 1 tab PO BEDTIME carvedilol 6.25 mg tablet 1 tab PO BIDWM cetirizine 10 mg tablet 1 tab PO DAILY magnesium oxide 400 mg (241.3 mg magnesium) tablet 1 tab PO DAILY levothyroxine 50 mcg tablet 1 tab PO DAILY@0600 ferrous sulfate 325 mg (65 mg iron) tablet 1 tab PO DAILY montelukast 10 mg tablet 1 tab PO BEDTIME pregabalin 225 mg capsule 1 cap PO BID furosemide 40 mg tablet 80 mg PO DAILY tramadol 50 mg tablet 50 mg PO Q6H PRN (Reason: pain) Qty: 20 0RF fluticasone propion-salmeterol [Advair Diskus] 250-50 mcg/dose blister with device 1 ea inhalation BID Estring 2 mg (7.5 mcg /24 hour) ring 1 vag ring vaginal Q90D dicyclomine 10 mg capsule 10 mg PO TID PRN (Reason: Abdominal Pain) ewmksdlip-udidzj-ukirhygs-scop [] 16.2-0.1037 -0.0194 mg/5 mL Elixir 5 ml PO QID Qty: 120 1RF nystatin 100,000 unit/gram Powder 1 appl topical BID Qty: 30 1RF Protocol: Apply to: Apply to: affected areas amoxicillin-pot clavulanate [Augmentin] 500-125 mg tablet 1 tab PO BID Qty: 20 0RF losartan 25 mg tablet 25 mg PO DAILY dexlansoprazole [Dexilant] 60 mg capsule,biphase delayed releas 60 mg PO DAILY@0630 neomycin 500 mg tablet 1 g PO TID Qty: 6 0RF Rx Instructions: administer at 1 PM, 2 PM, and 11 PM the day prior to surgery erythromycin 500 mg tablet 1 g PO TID Qty: 6 0RF Rx Instructions: administer at 1 PM, 2 PM, and 11 PM the day prior to surgery polyethylene glycol 3350 [Miralax] 17 gram/dose powder 17 g PO .COMPLEX Qty: 238 0RF Rx Instructions: Mixed complete bottle of MiraLax with 2 bottles of Gatorade (32 oz). Drink 8 oz every 15 minutes over 4 hour until bowels are clear. Start at 9:00 AM, morning before surgery.
[2023-06-29 00:51] LABS: MANUAL DIFF FLAG NO
[2023-06-29 00:55] LABS: Basophils Percent Auto 0.2 % (0-2); Eosinophils Absolute Auto 0.3 X10*3/uL (0.0-0.4); Eosinophils Percent Auto 2.9 % (0-4); Hematocrit 32.6 % (37.0-47.0); Hemoglobin 10.6 g/dl (12.0-16.0); Imm Gran Abs Auto 0.04 X10*3/uL (0.00-0.03); Imm Gran Pct Auto 0.4 % (0.0-0.4); Lymphocytes Absolute Auto 1.9 X10*3/uL (1.2-4.9); Lymphocytes Percent Auto 21.1 % (20-40); Mean Corpuscular HGB Conc 32.5 g/dl (31.0-35.0); Mean Corpuscular Hemoglobin 28.5 pg (27.0-33.0); Mean Corpuscular Volume 87.6 fL (80.0-98.0); Mean Platelet Volume 10.3 fL (9.4-12.3); Monocytes Absolute Auto 0.8 X10*3/uL (0.1-1.2); Monocytes Percent Auto 8.5 % (2-11); Neutrophils Absolute Auto 6.1 x10*3/uL (2.0-8.3); Neutrophils Percent Auto 66.9 % (45-73); Platelet Count 233 X10*3/uL (160-400); Red Blood Count 3.72 X10*6/uL (4.20-5.50); White Blood Count 9.1 X10*3/uL (4.8-10.8)
[2023-06-29 01:15] LABS: Anion Gap 11 (12-20); Blood Urea Nitrogen 15 mg/dL (9-16); C Reactive Protein 2.32 mg/dL (< or = 0.50); Calcium 8.3 mg/dL (8.4-10.2); Carbon Dioxide 34 mmol/L (22-29); Chloride 99 mmol/L (96-108); Creatinine Clr Calc Pharmacy 68.4; Estimated Glomerular Filt Rate 50; Glucose Random 94 mg/dL (60-115); Potassium 3.6 mmol/L (3.3-5.1); Sodium 140 mmol/L (135-145)
[2023-06-29 01:59] VITALS: BP 124/48; PULSE 63; RESP 17; TEMP 36.6; O2SAT 100
[2023-06-29] MEDS: oxyCODONE HCl Immed Release 5 MG TABLET 10 MG PO (02:01)
--- NOTE | 2023-06-29 02:04 | PC.NURSE ---
late entry- pt biba from home reporting lower abdominal pain for one month. pt reports hx of diverticulitis. pt reports episodes of nausea and vomiting. pt on 3L nasal cannula baseline sating 96-100%. pt medicated per jun for 01/16, tolerated well in applesauce.
--- NOTE | 2023-06-29 02:21 | PC.NURSE ---
ems at bedside to transport pt home.
[2023-06-29 02:48] VITALS: BP 124/48; PULSE 63; RESP 17; TEMP 36.6; O2SAT 100
== END 2023-06-29 02:49 | disposition home or self-care (01) ==
PROVIDERS: Emergency Provider Internal Medicine
DX: K57.92 Diverticulitis of intestine, part unspecified, without perforation or abscess without bleeding (principal); K57.90 Diverticulosis of intestine, part unspecified, without perforation or abscess without bleeding; I10 Essential (primary) hypertension; J45.909 Unspecified asthma, uncomplicated
CPT/HCPCS: 36415; 80048; 85025; 86140; 99283; 99284

== ENCOUNTER 2023-07-04 13:01 | Inpatient (IN) | payer MEDICARE, MEDICAID, SELFPAY ==
--- NOTE | ~2023-07-04 | CT_ITS ---
EXAMINATION: CT ABDOMEN AND PELVIS WITHOUT CONTRAST CLINICAL INFORMATION: Diarrhea. Abdominal pain. COMPARISON: Several recent CTs of the abdomen and pelvis, the most recent 06/25/2023 TECHNIQUE: Multidetector volumetric imaging was performed from the superior aspect of the liver through the pubic symphysis. Sagittal and coronal reformatted images were obtained on the technologist's workstation. This CT examination was performed using dose optimization techniques as appropriate, variously including the following: *Automated exposure control *Adjustment of mA and/or kV according to patient size (this includes techniques or standardized protocols for targeted exams where dose is matched to indication/reason for exam; i.e. extremities or head) *Use of iterative reconstruction technique DLP: 1478 mGy-cm FINDINGS: Visualized lung bases demonstrate mild dependent atelectasis. The liver is normal in size but demonstrates diffusely decreased attenuation. The gallbladder surgically absent. There is fatty atrophy of the pancreas. The spleen and adrenal glands are unremarkable. Symmetrically sized kidneys. No hydronephrosis of either kidney. Moderate-sized hiatal hernia again demonstrated. Normal caliber loops of small and large bowel. Mild colonic stool burden. Mild colonic diverticulosis. There is circumferential mucosal thickening of the sigmoid colon again demonstrated which appears slightly more accentuated than imaging from 9 days ago, however, this may be due to the colons relatively decompressed status in this area. There is some minimal adjacent pericolonic stranding adjacent to the proximal sigmoid colon again noted. Normal appendix. Normal caliber abdominal aorta. No retroperitoneal lymphadenopathy. The bladder is normal in appearance. Uterus is surgically absent. No gross free pelvic fluid. No inguinal lymphadenopathy. Diffuse osteopenia. Moderate degenerative changes of the spine. CT/CT abdomen pelvis wo IV con IMPRESSION: 1. Mild colonic diverticulosis. There is circumferential mucosal thickening of the sigmoid colon again demonstrated which appears slightly more accentuated than imaging from 9 days ago, however, this may be due to the colons relatively decompressed status in this area. There is some minimal adjacent pericolonic stranding adjacent to the proximal sigmoid colon again noted. Findings are nonspecific but may represent a very mild diverticulitis. 2. Diffusely decreased liver attenuation suggesting hepatic steatosis. Correlation with liver enzymes recommended. Fleischner guidelines were followed.
[2023-07-04 13:15] VITALS: BP 136/78; PULSE 68; O2SAT 99
[2023-07-04 13:22] VITALS: BP 122/30; PULSE 69; RESP 20; TEMP 36.6; O2SAT 100; BMI 52.4
--- NOTE | 2023-07-04 14:23 | ED.ABDPAIN ---
HPI - Abdominal Pain General Chief Complaint: Abdominal Pain Stated Complaint: NAUSEA DIARRHEA HX COPD Time Seen by Provider: 07/04/23 14:22 Source: patient and family Mode of arrival: ambulatory Limitations: no limitations History of Present Illness HPI narrative: 72-year-old female with multiple visits since May 17 2023 is here for left lower quadrant abdominal pain and diarrhea. Patient has had 5 CT scans which showed diverticulitis/diverticulitis and has been on Augmentin. Patient has had associated nausea vomiting diarrhea. She was most certainly here 5 days ago. Patient is here because she lives some who is elderly and there having hard time taking care of each other there concern for safety Related Data Home Medications Medication Instructions Recorded Confirmed carvedilol 6.25 mg tablet 1 tab PO BIDWM 03/13/21 06/26/23 cetirizine 10 mg tablet 1 tab PO DAILY 03/13/21 06/26/23 ferrous sulfate 325 mg (65 mg 1 tab PO DAILY 03/13/21 06/26/23 iron) tablet levothyroxine 50 mcg tablet 1 tab PO DAILY@0600 03/13/21 06/26/23 magnesium oxide 400 mg (241.3 mg 1 tab PO DAILY 03/13/21 06/26/23 magnesium) tablet montelukast 10 mg tablet 1 tab PO BEDTIME 03/13/21 06/26/23 pregabalin 225 mg capsule 1 cap PO BID 03/13/21 06/26/23 atorvastatin 10 mg tablet 1 tab PO BEDTIME 03/14/21 06/26/23 dexlansoprazole 60 mg 60 mg PO DAILY@0630 06/07/21 06/26/23 capsule,biphase delayed release (Dexilant) losartan 25 mg tablet 25 mg PO DAILY 06/07/21 06/26/23 furosemide 40 mg tablet 80 mg PO DAILY 10/02/22 06/26/23 dicyclomine 10 mg capsule 10 mg PO TID PRN Abdominal Pain 06/02/23 06/26/23 estradiol 2 mg (7.5 mcg/24 hour) 1 vag ring vaginal Q90D 06/02/23 06/26/23 vaginal ring (Estring) fluticasone 250 mcg-salmeterol 50 1 ea inhalation BID 06/02/23 06/26/23 mcg/dose blistr powdr for inhalation (Advair Diskus) Previous Rx's Medication Instructions Recorded tramadol 50 mg tablet 50 mg PO Q6H PRN pain #20 tabs 05/18/23 nystatin 100,000 unit/gram topical 1 appl topical BID #30 grams 06/04/23 powder aciedpqpg-pbxfss-nqridvvp-scop 5 ml PO QID #120 mL 06/04/23 16.2 mg-0.1037 mg-0.0194 mg/5 mL elixir () amoxicillin 500 mg-potassium 1 tab PO BID #20 tabs 06/25/23 clavulanate 125 mg tablet (Augmentin) erythromycin 500 mg tablet 1 g (2 x 500 mg) PO TID #6 tabs 06/26/23 neomycin 500 mg tablet 1 g (2 x 500 mg) PO TID 3 doses #6 06/26/23 tabs polyethylene glycol 3350 17 17 g PO .COMPLEX #238 grams 06/26/23 gram/dose oral powder (Miralax) Allergies Allergy/AdvReac Type Severity Reaction Status Date / Time celecoxib [From CELEBREX] Allergy Unknown RASH Verified 07/04/23 13:27 Latex, Natural Rubber Allergy Unknown Rash Verified 07/04/23 13:27 ibuprofen [IBUPROFEN] AdvReac Intermediate RASH Verified 07/04/23 13:27 Review of Systems Review of Systems Review of systems: General: Patient denies any fever chills recent illness or falls Musculoskeletal: Denies back pain or body aches or other injuries HEENT: denies headache, runny nose, ear pain Respiratory: denies shortness of breath, cough Cardiovascular: no chest pain or palpitations : denies dysuria, frequency Abdomen: Diarrhea no nausea vomiting left lower quadrant abdominal pain Extremities: no swelling, no pain Skin: no diaphoresis Yes all other systems are reviewed and are negative [facility] Past Medical History Medical History Respiratory failure Interstitial lung disease Seasonal allergies Diarrhea Neuropathy Asthma Hypercholesteremia GERD (gastroesophageal reflux disease) Thyroid activity decreased Hypertension Surgical History Hx of cataract surgery H/O: hysterectomy History of cholecystectomy Family History Family History Mother Asthma Father No problems noted. 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 Do you presently have visiting nurse or other home services: No Unable to assess alcohol history related to: Unknown Alcohol intake: never Patient Tobacco Use Status: Never used Tobacco Smoked in Last 30 Days: No Second Hand Smoke Exposure: No Use of substances other than those prescribed or required for medical reasons: No Advance Directives: No Advance Directives Information Provided: No service: No Current occupational status: retired Physical Exam ED Vital Signs: Vital Signs - 24 hr 07/04/23 13:22 07/04/23 15:25 Temperature 97.9 F Pulse Rate 69 67 Respiratory Rate 20 18 Blood Pressure 122/30 L 114/47 L Pulse Oximetry 100 99 Oxygen Delivery Method Room Air Nasal Cannula Oxygen Flow Rate 2 BMI result Body Mass Index 52.4 General: Well-appearing well-nourished in no signs of distress HEENT: Normocephalic atraumatic Neck: No signs of JVD, no masses no tenderness or lymphadenopathy Cardiovascular: Regular rate and rhythm Respiratory: Clear to auscultation bilaterally Abdomen: Soft LLQ pain no masses Extremities: Normal pedal pulses no signs of edema Skin: Dry warm no rashes Back: No tenderness full ROM Procedures Procedure Narrative Procedure Narrative: I was asked to assist with IV access. Using ultrasound guidance I was able to place a 20 gauge peripheral IV in the left AC. I was able to draw blood back on the line the line flushed well postprocedure, there were no complications. Course Course Course Narrative: 1810 patient is mainly hoping to get into a detention patient has continued diverticulitis after 5 days with continued diarrhea. CT shows continued diverticulitis I feel she has failed outpatient treatment and would benefit from IV antibiotics before placement. Medical Decision Making Medical Decision Making [facility] Narrative: I will start the patient on Flagyl and ceftriaxone I will give patient fluids the patient pain medications recheck labs and see the patient for repeat CT scan Differential Diagnosis Differential Diagnoses: The differential diagnosis associated with the presentation includes Diverticulitis diarrhea failure to thrive failed outpatient treatment Admission/Observation Consideration of admission/observation: Escalation of care including admission/observation considered Consult Healthcare Provider Management of the patient was discussed with: Hospitalist Dr. Granados Lab Data MDM Lab Attestation statement: I reviewed the patient's lab results. 07/04/23 14:44 07/04/23 14:44 Labs: Lab Results 07/04/23 Range/Units 14:44 WBC 7.4 (4.8-10.8) X10*3/uL RBC 4.02 L (4.20-5.50) X10*6/uL Hgb 11.5 L (12.0-16.0) g/dl Hct 35.2 L (37.0-47.0) % MCV 87.6 (80.0-98.0) fL MCH 28.6 (27.0-33.0) pg MCHC 32.7 (31.0-35.0) g/dl RDW 13.8 (11.0-16.0) % Plt Count 218 (160-400) X10*3/uL MPV Not Reportable Immature Gran % (Auto) 0.1 (0.0-0.4) % Neut % (Auto) 57.4 (45-73) % Lymph % (Auto) 27.6 (20-40) % [place] % (Auto) 9.1 (2-11) % Eos % (Auto) 5.4 H (0-4) % Baso % (Auto) 0.4 (0-2) % Lymph # (Auto) 2.0 (1.2-4.9) X10*3/uL [place] # (Auto) 0.7 (0.1-1.2) X10*3/uL Eos # (Auto) 0.4 (0.0-0.4) X10*3/uL Baso # (Auto) 0.0 (0.0-0.2) X10*3/uL Abs Immat Gran (auto) 0.01 (0.00-0.03) X10*3/uL Absolute Neuts (auto) 4.3 (2.0-8.3) x10*3/uL Absolute Nucleated RBC 0.000 (0.0-0.012) X10*3/uL Nucleated RBC % (auto) 0.0 (0.0-0.2) /100WBC Smear Tech's Comments VERIFIED PT 11.5 (11.1-13.3) SEC INR 0.9 (0.9-1.1) Sodium 140 (135-145) mmol/L Potassium 4.3 (3.3-5.1) mmol/L Chloride 100 (96-108) mmol/L Carbon Dioxide 34 H (22-29) mmol/L Anion Gap 10 L (12-20) BUN 17 H (9-16) mg/dL Creatinine 1.25 (0.5-1.4) mg/dL Estim Creat Clear Calc 60.4 Estimated GFR 42 Random Glucose 131 H (60-115) mg/dL Calcium 8.4 (8.4-10.2) mg/dL Total Bilirubin 0.4 (0.0-1.0) mg/dL Direct Bilirubin 0.1 (0.0-0.5) mg/dL AST 20 (5-31) U/L ALT 10 (0-31) U/L Alkaline Phosphatase 71 (39-117) U/L Total Protein 7.6 (6.5-8.0) g/dL Albumin 3.6 (3.5-5.0) g/dL Lipase 27 (8-78) U/L Independent Interpretation I performed an independent interpretation of an: CT Scan Interpretation: STill with mild diverticulitis. Radiology Impression Discussion of test interpretation with radiology: I have reviewed the radiologist's reading. Independent Historian Clinical information obtained from an independent historian. History obtained from or confirmed by: Other External Record Review External record reviewed: Inpatient record, Outpatient record, Prior outpatient labs, Prior outpatient radiology and Outside ED record Prescription Management I considered prescription management with: Pain Medication Chronic Conditions Patient?s care impacted by: Hypertension Social Determinants Patient?s care significantly limited by Social Determinants of Health including: Inadequate housing Core Measures AMI core measures followed: Yes Medications Administered Discontinued Medications Generic Name Dose Route Start Last Admin Trade Name Freq PRN Reason Stop Dose Admin Sodium Chloride 1,000 mls @ 999 mls/hr 07/04/23 14:30 07/04/23 17:05 Ns IV 07/04/23 15:30 999 mls/hr .Q1H1M JOSÉ ANTONIO Administration Metronidazole 500 mg in 100 mls @ 100 mls/hr 07/04/23 14:27 07/04/23 17:58 Flagyl IV 07/04/23 15:26 100 mls/hr ONCE ONE Administration Ceftriaxone Sodium 1 gm/ 50 mls @ 100 mls/hr 07/04/23 14:27 07/04/23 17:58 Sodium Chloride IV 07/04/23 14:56 Infused ONCE ONE Infusion Discharge Plan Discharge Clinical Impression: Acute diverticulitis Patient Disposition: Admitted As Inpatient Prescriptions: No Action atorvastatin 10 mg tablet 1 tab PO BEDTIME carvedilol 6.25 mg tablet 1 tab PO BIDWM cetirizine 10 mg tablet 1 tab PO DAILY magnesium oxide 400 mg (241.3 mg magnesium) tablet 1 tab PO DAILY levothyroxine 50 mcg tablet 1 tab PO DAILY@0600 ferrous sulfate 325 mg (65 mg iron) tablet 1 tab PO DAILY montelukast 10 mg tablet 1 tab PO BEDTIME pregabalin 225 mg capsule 1 cap PO BID furosemide 40 mg tablet 80 mg PO DAILY tramadol 50 mg tablet 50 mg PO Q6H PRN (Reason: pain) Qty: 20 0RF fluticasone propion-salmeterol [Advair Diskus] 250-50 mcg/dose blister with device 1 ea inhalation BID Estring 2 mg (7.5 mcg /24 hour) ring 1 vag ring vaginal Q90D dicyclomine 10 mg capsule 10 mg PO TID PRN (Reason: Abdominal Pain) izkuctvmc-dqicig-nkvagxgs-scop [] 16.2-0.1037 -0.0194 mg/5 mL Elixir 5 ml PO QID Qty: 120 1RF nystatin 100,000 unit/gram Powder 1 appl topical BID Qty: 30 1RF Protocol: Apply to: Apply to: affected areas amoxicillin-pot clavulanate [Augmentin] 500-125 mg tablet 1 tab PO BID Qty: 20 0RF losartan 25 mg tablet 25 mg PO DAILY dexlansoprazole [Dexilant] 60 mg capsule,biphase delayed releas 60 mg PO DAILY@0630 neomycin 500 mg tablet 1 g PO TID Qty: 6 0RF Rx Instructions: administer at 1 PM, 2 PM, and 11 PM the day prior to surgery erythromycin 500 mg tablet 1 g PO TID Qty: 6 0RF Rx Instructions: administer at 1 PM, 2 PM, and 11 PM the day prior to surgery polyethylene glycol 3350 [Miralax] 17 gram/dose powder 17 g PO .COMPLEX Qty: 238 0RF Rx Instructions: Mixed complete bottle of MiraLax with 2 bottles of Gatorade (32 oz). Drink 8 oz every 15 minutes over 4 hour until bowels are clear. Start at 9:00 AM, morning before surgery.
[2023-07-04 15:00] LABS: INTERNATIONAL NORM RATIO 0.9 (0.9-1.1); Prothrombin Time 11.5 SEC (11.1-13.3)
[2023-07-04 15:09] LABS: Alanine Aminotransferase 10 U/L (0-31); Albumin Level 3.6 g/dL (3.5-5.0); Alkaline Phosphatase 71 U/L (39-117); Anion Gap 10 (12-20); Aspartate Amino Transferase 20 U/L (5-31); Bilirubin Direct 0.1 mg/dL (0.0-0.5); Bilirubin Total 0.4 mg/dL (0.0-1.0); Blood Urea Nitrogen 17 mg/dL (9-16); Calcium 8.4 mg/dL (8.4-10.2); Carbon Dioxide 34 mmol/L (22-29); Chloride 100 mmol/L (96-108); Creatinine Clr Calc Pharmacy 60.4; Estimated Glomerular Filt Rate 42; Glucose Random 131 mg/dL (60-115); Lipase 27 U/L (8-78); Potassium 4.3 mmol/L (3.3-5.1); Sodium 140 mmol/L (135-145); Total Protein 7.6 g/dL (6.5-8.0)
[2023-07-04 15:25] VITALS: BP 114/47; PULSE 67; RESP 18; O2SAT 99
[2023-07-04 15:31] LABS: Basophils Percent Auto 0.4 % (0-2); Eosinophils Absolute Auto 0.4 X10*3/uL (0.0-0.4); Eosinophils Percent Auto 5.4 % (0-4); Hematocrit 35.2 % (37.0-47.0); Hemoglobin 11.5 g/dl (12.0-16.0); Imm Gran Abs Auto 0.01 X10*3/uL (0.00-0.03); Imm Gran Pct Auto 0.1 % (0.0-0.4); Lymphocytes Percent Auto 27.6 % (20-40); MANUAL DIFF FLAG SCAN; Mean Corpuscular HGB Conc 32.7 g/dl (31.0-35.0); Mean Corpuscular Hemoglobin 28.6 pg (27.0-33.0); Mean Corpuscular Volume 87.6 fL (80.0-98.0); Monocytes Absolute Auto 0.7 X10*3/uL (0.1-1.2); Monocytes Percent Auto 9.1 % (2-11); Neutrophils Absolute Auto 4.3 x10*3/uL (2.0-8.3); Neutrophils Percent Auto 57.4 % (45-73); PLT CLUMP 1; Red Blood Count 4.02 X10*6/uL (4.20-5.50); Red Cell Distribution Width 13.8 % (11.0-16.0); SCAN SMEAR FLAG 1
[2023-07-04 15:44] LABS: White Blood Count 7.4 X10*3/uL (4.8-10.8)
[2023-07-04 15:46] LABS: Platelet Count 218 X10*3/uL (160-400); SLIDE REVIEW VERIFIED
--- NOTE | 2023-07-04 16:05 | PC.NURSE ---
delay in abx administration d/t pt difficult IV placement, RN attempting u/s IV.
[2023-07-04] MEDS: 0.9 % Sodium Chloride 1,000 ML 999 ML IV (17:05)
[2023-07-04] MEDS: cefTRIAXone sodium 1 GM in 0.9 % Sodium Chloride 50 ML IV (17:06)
--- NOTE | 2023-07-04 17:13 | PC.NURSE ---
u/s PIV infiltrated in CT, provider aware. provider at bedside placing u/s IV. pt medicated per JUN.
[2023-07-04] MEDS: metroNIDAZOLE/NS 500 MG/100 ML PIGGYBACK 100 MG IV (17:58)
[2023-07-04 18:25] VITALS: BP 118/37; PULSE 62; RESP 16; TEMP 37; O2SAT 100
--- NOTE | 2023-07-04 19:18 | PHA.MEDREC ---
Pharmacy Consult ? Medication Reconciliation Pharmacy has completed the medication reconciliation. Confirmed medications with patient (has written list) and through claim history. Patient reports that she did not finish her Augmentin. Also reports that she took dicyclomine 10mg yesterday. Newer script is 20mg and she ran out but she tells me it is not working
--- NOTE | 2023-07-04 19:56 | P.HPHOSP_ITS ---
History of Present Illness Date of Service: 07/04/23 Attending physician on admission: Bandar Jackson Chief Complaint: abd pain 72 year old female with history of ILD with chronic hypoexmic respiratory failure on 3 L supplemental O2 at baseline, GERD, hypertension, unspecified asthma, hypothyroidism, unspecified peripheral neuropathy, who is morbidly obese with BMI greater than 52 presented to the ED earlier today for evaluation of abdominal pain. She presented to the ED initially on 06/24 and then again in 06/28 due to complaints of right lower quadrant and left lower quadrant intermittent severe abdominal pain without radiation. She states the pain comes on randomly and is unable to identify any triggers or alleviating factors. States she has had at least 5+ episodes of watery diarrhea daily basis. No fevers or chills. No nausea, vomiting, melena, hematochezia. She was started on Augmentin initially with coarse repeated at subsequent ER visit. On review of chart, was also admitted last month for similar symptoms and diagnosed with mild diverticulitis after having failed outpatient therapy with Augmentin. On arrival, vital signs stable. There is no leukocytosis. Renal function baseline, electrolyte levels normal except for CO2 34 which is consistent with her baseline. Hepatic function within normal limits. Lipase 27. CT abdomen/pelvis shows mild colonic diverticulosis with circumferential mucosal thickening of the sigmoid colon again demonstrated which appears slightly more accentuated than imaging 9 days ago however this may be attributed to relatively decompressed status of the area. There is also some minimal adjacent pericolonic stranding adjacent to the proximal sigmoid colon which is again noted. Described as nonspecific findings possibly representing a very mild diverticulitis. In the ED, has been given 500 mg IV Flagyl, 1 g IV ceftriaxone, 1 L IV NS. She will be admitted for further management of diverticulitis having failed outpatient therapy. Patient also reports that her partner has been struggling to care for her at home and is concerned about returning home and is requesting evaluation for rehab. Review of Systems 2 Review of Systems: General: No fevers, malaise, unintentional weight loss HEENT: No blurred vision, diplopia. No sore throat, nasal congestion, rhinorrhea, sinus pain, ear pain Cardiovascular: No chest pain, palpitations, or leg edema Respiratory: No shortness of breath, wheezing, cough GI: +abd pain, +diarrhea. No nausea, vomiting, constipation, melena, hematochezia : No dysuria, hematuria, increased urinary frequency, decreased urinary output MSK: No myalgia, back pain Neuro: No headaches, weakness, paresthesias Skin: No rashes or lesions [facility] Medical History Respiratory failure Interstitial lung disease Seasonal allergies Diarrhea Neuropathy Asthma Hypercholesteremia GERD (gastroesophageal reflux disease) Thyroid activity decreased Hypertension Family History Mother Asthma Father No problems noted. 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 Housing: Apartment Housing Other:: [employer] Do you presently have visiting nurse or other home services: No Unable to assess alcohol history related to: Unknown Alcohol intake: never Patient Tobacco Use Status: Never used Tobacco Smoked in Last 30 Days: No Second Hand Smoke Exposure: No Use of substances other than those prescribed or required for medical reasons: No Advance Directives: No Advance Directives Information Provided: No service: No Current occupational status: retired Meds Allergies Allergy/AdvReac Type Severity Reaction Status Date / Time celecoxib [From CELEBREX] Allergy Unknown RASH Verified 07/04/23 13:27 Latex, Natural Rubber Allergy Unknown Rash Verified 07/04/23 13:27 ibuprofen [IBUPROFEN] AdvReac Intermediate RASH Verified 07/04/23 13:27 Active Medications: Current Medications Acetaminophen (Acetaminophen 325 Mg Tablet) 650 mg PO Q6H PRN PRN Reason: Pain, Mild (Pain Scale 1-3) Enoxaparin Sodium (Enoxaparin Sodium 40 Mg/0.4 Ml Syringe) 40 mg SUBCUT Q24H JOSÉ ANTONIO Ceftriaxone Sodium 1 gm/ (Sodium Chloride) 50 mls @ 100 mls/hr IV Q24H JOSÉ ANTONIO Metronidazole (Flagyl) 500 mg in 100 mls @ 100 mls/hr IV Q8H JOSÉ ANTONIO Ondansetron HCl (Ondansetron Hcl 4 Mg/2 Ml Vial) 4 mg IVPUSH Q8H PRN PRN Reason: Nausea and Vomiting Senna (Sennosides 8.6 Mg Tablet) 17.2 mg PO BEDTIME PRN PRN Reason: Constipation Sodium Chloride (0.9 % Sodium Chloride Flush 3 Ml Syringe) 3 ml IVFLUSH QSHIFT [facility] Home Medications Medication Instructions Recorded Confirmed Last Taken Type carvedilol 6.25 mg tablet 1 tab PO BIDWM 03/13/21 07/04/23 07/04/23 History cetirizine 10 mg tablet 1 tab PO DAILY 03/13/21 07/04/23 07/04/23 History ferrous sulfate 325 mg (65 mg 1 tab PO DAILY 03/13/21 07/04/23 07/04/23 History iron) tablet levothyroxine 50 mcg tablet 1 tab PO DAILY@0600 03/13/21 07/04/23 07/04/23 History magnesium oxide 400 mg (241.3 mg 1 tab PO DAILY 03/13/21 07/04/23 07/04/23 History magnesium) tablet montelukast 10 mg tablet 1 tab PO BEDTIME 03/13/21 07/04/23 07/03/23 History pregabalin 225 mg capsule 1 cap PO BID 03/13/21 07/04/23 07/04/23 History atorvastatin 10 mg tablet 1 tab PO BEDTIME 03/14/21 07/04/23 07/03/23 History dexlansoprazole 60 mg 60 mg PO DAILY@0630 06/07/21 07/04/23 07/04/23 History capsule,biphase delayed release (Dexilant) losartan 25 mg tablet 25 mg PO DAILY 06/07/21 07/04/23 07/04/23 History furosemide 40 mg tablet 80 mg PO DAILY 10/02/22 07/04/23 07/04/23 History dicyclomine 10 mg capsule 10 mg PO TID PRN Abdominal Pain 06/02/23 07/04/23 07/03/23 History fluticasone 250 mcg-salmeterol 50 1 ea inhalation BID 06/02/23 07/04/23 07/04/23 History mcg/dose blistr powdr for inhalation (Advair Diskus) methylcellulose (laxative) 500 mg 500 mg PO DAILY 07/04/23 07/04/23 07/04/23 History tablet (Citrucel) ondansetron HCl 4 mg tablet 4 mg PO Q8H PRN Nausea 07/04/23 07/04/23 07/04/23 History Physical Exam 2 Vital Signs and Narrative: Vital Signs: Last Vital Signs Temp 98.6 F 07/04/23 18:25 Pulse 62 07/04/23 18:25 Resp 16 07/04/23 18:25 BP 118/37 L 07/04/23 18:25 Pulse Ox 100 07/04/23 18:25 O2 Del Method Room Air 07/04/23 18:25 O2 Flow Rate 3 07/04/23 18:25 BMI result Body Mass Index 52.4 Constitutional - Awake and Alert, No apparent distress Eyes - PERRLA, EOMI Cardiovascular - S1S2, RRR, + ble edema Respiratory - Normal lung expansion, Normal respiratory effort, No respiratory distress, CTA bilaterally Gastrointestinal - mild diffuse ttp without guarding or rebound. morbidly obese abdomen. ND; +BS Extremities - no calf tenderness bilaterally, no swelling Skin - Warm/Dry Neurological - Alert & oriented x3 Psychological - Appropriate affect Results Labs 07/04/23 14:44 07/04/23 14:44 Labs: Laboratory Results - last 24 hr 07/04/23 14:44 MCV 87.6 MCH 28.6 MCHC 32.7 RDW 13.8 Plt Count 218 MPV Not Reportable Immature Gran % (Auto) 0.1 Neut % (Auto) 57.4 Lymph % (Auto) 27.6 [place] % (Auto) 9.1 Eos % (Auto) 5.4 H Baso % (Auto) 0.4 Lymph # (Auto) 2.0 [place] # (Auto) 0.7 Eos # (Auto) 0.4 Baso # (Auto) 0.0 Abs Immat Gran (auto) 0.01 Absolute Neuts (auto) 4.3 Absolute Nucleated RBC 0.000 Nucleated RBC % (auto) 0.0 Smear Tech's Comments VERIFIED PT 11.5 INR 0.9 Anion Gap 10 L Estim Creat Clear Calc 60.4 Estimated GFR 42 Random Glucose 131 H Calcium 8.4 Total Bilirubin 0.4 Direct Bilirubin 0.1 AST 20 ALT 10 Alkaline Phosphatase 71 Total Protein 7.6 Albumin 3.6 Lipase 27 Imaging Radiologist's Impressions: Impressions Abdomen/Pelvis CT 07/04/23 16:42 IMPRESSION: 1. Mild colonic diverticulosis. There is circumferential mucosal thickening of the sigmoid colon again demonstrated which appears slightly more accentuated than imaging from 9 days ago, however, this may be due to the colons relatively decompressed status in this area. There is some minimal adjacent pericolonic stranding adjacent to the proximal sigmoid colon again noted. Findings are nonspecific but may represent a very mild diverticulitis. 2. Diffusely decreased liver attenuation suggesting hepatic steatosis. Correlation with liver enzymes recommended. Fleischner guidelines were followed. Assessment and Plan (1) Diverticulitis: Status: Acute Plan 72 year old female with history of ILD with chronic hypoexmic respiratory failure on 3 L supplemental O2 at baseline, GERD, hypertension, unspecified asthma, hypothyroidism, unspecified peripheral neuropathy, who is morbidly obese with BMI greater than 52 admitted for further management of diverticulitis having failed outpt therapies. #Acute sigmoid diverticulitis -CT abdomen/pelvis shows mild colonic diverticulosis with circumferential mucosal thickening of the sigmoid colon again demonstrated which appears slightly more accentuated than imaging 9 days ago however this may be attributed to relatively decompressed status of the area. There is also some minimal adjacent pericolonic stranding adjacent to the proximal sigmoid colon which is again noted. Described as nonspecific findings possibly representing a very mild diverticulitis. -Given multiple failures of augmentin and recent admission for the same, will treat with IV zosyn (initiated 07/03) -Gi panel and CDiff PCR given recurrent diarrhea -clear liquid diet, advance as tolerated -continue dicyclomine -OUtpt GI follow up #Weakness -pt eval # unspecified asthma/ILD with chronic hypoxemic hypercapnic respiratory failure -no acute exacerbation -continue maintenance inhalers, albuterol p.r.n. -continue home supplemental O2 at 3 L via nasal cannula # hypertension -continue losartan, carvedilol # hypothyroidism -continue levothyroxine # unspecified polyneuropathy -continue Lyrica #hyperglycemia- ?recently diagnosed type 2 diabetes -pt uncertain, but beleives she may have new diabetes diagnosed at recent [facility] ED visit -check hgb a1c # morbid obesity BMI greater than 52 -weight loss efforts encouraged, counseled on lifestyle modification DVT prophylaxis-Lovenox Full code Patient requires inpatient stay at least 2 midnights for management of acute sigmoid diverticulitis requiring IV antibiotics having failed outpatient therapies. Quality Stroke Does the patient have a stroke diagnosis?: No VTE Prior VTE?: No VTE Risk Level:: Medical - moderate - high VTE Device Contraindication: Treatment Not Indicated VTE Drug Contraindication: N/A - Med Ordered
[2023-07-04 20:03] VITALS: BP 119/43; PULSE 63; RESP 15; O2SAT 100
[2023-07-04] MEDS: Piperacillin Sodium/Tazobactam 4.5 GM in 0.9 % Sodium Chloride 100 ML IV (20:47)
[2023-07-04] MEDS: Atorvastatin Calcium 10 MG TABLET PO (20:48)
[2023-07-04] MEDS: carvediloL 6.25 MG TABLET PO (20:48)
[2023-07-04] MEDS: Pregabalin 75 MG CAPSULE 225 MG PO (20:48)
[2023-07-04] MEDS: Montelukast Sodium 10 MG TABLET PO (20:48)
[2023-07-04] MEDS: Enoxaparin Sodium 40 MG/0.4 ML SYRINGE SUBCUT (20:48)
[2023-07-05] MEDS: Piperacillin Sodium/Tazobactam 4.5 GM in 0.9 % Sodium Chloride 100 ML IV ×4 (03:00→21:51)
[2023-07-05] MEDS: Omeprazole 20 MG CAPSULE.DR PO (06:13)
[2023-07-05] MEDS: Levothyroxine Sodium 50 MCG TABLET PO (06:13)
[2023-07-05 06:17] VITALS: BP 137/67; PULSE 63; RESP 16; TEMP 36.4; O2SAT 98
[2023-07-05 06:18] LABS: Estimated Average Glucose 100 mg/dL; Hemoglobin A1c % 5.1 % (<6.0)
[2023-07-05] MEDS: Furosemide 40 MG TABLET 80 MG PO (08:07)
[2023-07-05] MEDS: Pregabalin 75 MG CAPSULE 225 MG PO ×2 (08:07→21:55)
[2023-07-05] MEDS: Losartan Potassium 25 MG TABLET PO (08:08)
[2023-07-05] MEDS: carvediloL 6.25 MG TABLET PO ×2 (08:08→17:49)
[2023-07-05] MEDS: Loratadine 10 MG TABLET PO (08:08)
[2023-07-05] MEDS: Magnesium Oxide 400 MG TABLET PO (08:08)
[2023-07-05] MEDS: Ferrous Sulfate 324 MG TABLET.DR PO (08:08)
[2023-07-05] MEDS: 0.9 % Sodium Chloride Flush 3 ML SYRINGE IVFLUSH (08:08)
[2023-07-05] MEDS: Fluticasone/Vilanterol 100/25 BLST.W.DEV 1 PUFF INHALE (08:11)
[2023-07-05 08:14] VITALS: PULSE 65; RESP 18; O2SAT 100
[2023-07-05 08:15] LABS: MANUAL DIFF FLAG NO
[2023-07-05 08:25] LABS: Basophils Percent Auto 0.5 % (0-2); Eosinophils Absolute Auto 0.4 X10*3/uL (0.0-0.4); Eosinophils Percent Auto 5.3 % (0-4); Hematocrit 33.1 % (37.0-47.0); Hemoglobin 10.9 g/dl (12.0-16.0); Imm Gran Abs Auto 0.01 X10*3/uL (0.00-0.03); Imm Gran Pct Auto 0.1 % (0.0-0.4); Lymphocytes Absolute Auto 1.8 X10*3/uL (1.2-4.9); Lymphocytes Percent Auto 24.2 % (20-40); Mean Corpuscular HGB Conc 32.9 g/dl (31.0-35.0); Mean Corpuscular Hemoglobin 28.8 pg (27.0-33.0); Mean Corpuscular Volume 87.6 fL (80.0-98.0); Mean Platelet Volume 11.1 fL (9.4-12.3); Monocytes Absolute Auto 0.7 X10*3/uL (0.1-1.2); Monocytes Percent Auto 9.8 % (2-11); Neutrophils Absolute Auto 4.4 x10*3/uL (2.0-8.3); Neutrophils Percent Auto 60.1 % (45-73); Platelet Count 232 X10*3/uL (160-400); Red Blood Count 3.78 X10*6/uL (4.20-5.50); White Blood Count 7.4 X10*3/uL (4.8-10.8)
--- NOTE | 2023-07-05 08:37 | PC.NURSE ---
ASSUMED CARE AT 0700. PT A+O x4, SHE DENIES PAIN. VSS. CLEAR LIQUID DIET GIVEN ORDERED, ATE 75% OF BREAKFAST. SHE WAS SEEN BY DR. SIMMS, PHYSICAL THERAPIST AT BEDSIDE AT THIS TIME.
[2023-07-05 08:39] LABS: Anion Gap 13 (12-20); Blood Urea Nitrogen 15 mg/dL (9-16); Calcium 8.4 mg/dL (8.4-10.2); Carbon Dioxide 34 mmol/L (22-29); Chloride 100 mmol/L (96-108); Estimated Glomerular Filt Rate 46; Glucose Random 123 mg/dL (60-115); Potassium 4.1 mmol/L (3.3-5.1); Sodium 143 mmol/L (135-145)
[2023-07-05 08:43] VITALS: BP 148/63; PULSE 98; RESP 17; TEMP 36.6; O2SAT 96
--- NOTE | 2023-07-05 08:50 | MHC.EDTECH ---
pt ate 75 of her breakfast was washed up and complete bed change refused to brush teeth due to no teeth and was assisted to the commode with walker and is sitting on a recliner.
--- NOTE | 2023-07-05 09:06 | P.PNIM_ITS ---
Subjective Subjective Date of Service: 07/05/23 Interval History: f/u on acute diverticulitis that failied outpatrient treatment interval history: pain is better, tolerating liquid diet Physical Exam 2 Vital Signs: Vital Signs: Last Vital Signs Temp 97.8 F 07/05/23 08:43 Pulse 98 07/05/23 08:43 Resp 17 07/05/23 08:43 BP 148/63 H 07/05/23 08:43 Pulse Ox 96 07/05/23 08:43 O2 Del Method Nasal Cannula 07/05/23 08:43 O2 Flow Rate 3 07/05/23 08:43 BMI result Body Mass Index 52.4 General: AO X 3, no acute distress Resp: CTA bilateral CVS: S1,S2,RRR GI: +BS, mild tenderness, no distention Skin: No rash Neuro: motor grossly intact Psych: appropriate affect Objective Data Active Medications Acetaminophen (Acetaminophen 325 Mg Tablet) 650 mg PO Q6H PRN PRN Reason: Pain, Mild (Pain Scale 1-3) Atorvastatin Calcium (Atorvastatin Calcium 10 Mg Tablet) 10 mg PO BEDTIME [facility] Last Admin: 07/04/23 20:48 Dose: 10 mg Documented By: PER Carvedilol (Carvedilol 6.25 Mg Tablet) 6.25 mg PO BIDWM [facility]; Protocol Last Admin: 07/05/23 08:08 Dose: 6.25 mg Documented By: MAY Dicyclomine HCl (Dicyclomine Hcl 10 Mg Capsule) 10 mg PO TID PRN PRN Reason: Abdominal Pain Enoxaparin Sodium (Enoxaparin Sodium 40 Mg/0.4 Ml Syringe) 40 mg SUBCUT Q24H [facility] Last Admin: 07/04/23 20:48 Dose: 40 mg Documented By: PER Ferrous Sulfate (Ferrous Sulfate 324 Mg Tablet.Dr) 324 mg PO DAILY [facility] Last Admin: 07/05/23 08:08 Dose: 324 mg Documented By: MAY Fluticasone/Vilanterol (Fluticasone/Vilanterol 100/25 Blst.W.Dev) 1 puff INHALE RDAILY [facility] Last Admin: 07/05/23 08:11 Dose: 1 puff Documented By: JESUS Furosemide (Furosemide 40 Mg Tablet) 80 mg PO DAILY [facility]; Protocol Last Admin: 07/05/23 08:07 Dose: 80 mg Documented By: MAY Piperacillin Sod/Tazobactam (Sod 4.5 gm/ Sodium Chloride) 100 mls @ 200 mls/hr IV Q6H [facility] Last Infusion: 07/05/23 03:30 Dose: Infused Documented By: ANTWHITNEY Levothyroxine Sodium (Levothyroxine Sodium 50 Mcg Tablet) 50 mcg PO DAILY@0600 [facility] Last Admin: 07/05/23 06:13 Dose: 50 mcg Documented By: ANTWHITNEY Loratadine (Loratadine 10 Mg Tablet) 10 mg PO DAILY [facility] Last Admin: 07/05/23 08:08 Dose: 10 mg Documented By: MAY Losartan Potassium (Losartan Potassium 25 Mg Tablet) 25 mg PO DAILY [facility]; Protocol Last Admin: 07/05/23 08:08 Dose: 25 mg Documented By: MAY Magnesium Oxide (Magnesium Oxide 400 Mg Tablet) 400 mg PO DAILY [facility] Last Admin: 07/05/23 08:08 Dose: 400 mg Documented By: MAY Montelukast Sodium (Montelukast Sodium 10 Mg Tablet) 10 mg PO BEDTIME [facility] Last Admin: 07/04/23 20:48 Dose: 10 mg Documented By: PER Omeprazole (Omeprazole 20 Mg Capsule.) 20 mg PO DAILY@0630 [facility] Last Admin: 07/05/23 06:13 Dose: 20 mg Documented By: SCOTT Ondansetron HCl (Ondansetron Hcl 4 Mg/2 Ml Vial) 4 mg IVPUSH Q8H PRN PRN Reason: Nausea and Vomiting Pregabalin (Pregabalin 75 Mg Capsule) 225 mg PO BID [facility] Last Admin: 07/05/23 08:07 Dose: 225 mg Documented By: MAY Senna (Sennosides 8.6 Mg Tablet) 17.2 mg PO BEDTIME PRN PRN Reason: Constipation Sodium Chloride (0.9 % Sodium Chloride Flush 3 Ml Syringe) 3 ml IVFLUSH QSHIFT [facility] Last Admin: 07/05/23 08:08 Dose: 3 ml Documented By: MAY Labs 07/05/23 08:10 07/05/23 08:10 Labs: Laboratory Results - last 24 hr 07/04/23 07/05/23 14:44 08:10 MCV 87.6 87.6 MCH 28.6 28.8 MCHC 32.7 32.9 RDW 13.8 14.0 Plt Count 218 232 MPV Not Reportable 11.1 Immature Gran % (Auto) 0.1 0.1 Neut % (Auto) 57.4 60.1 Lymph % (Auto) 27.6 24.2 [place] % (Auto) 9.1 9.8 Eos % (Auto) 5.4 H 5.3 H Baso % (Auto) 0.4 0.5 Lymph # (Auto) 2.0 1.8 [place] # (Auto) 0.7 0.7 Eos # (Auto) 0.4 0.4 Baso # (Auto) 0.0 0.0 Abs Immat Gran (auto) 0.01 0.01 Absolute Neuts (auto) 4.3 4.4 Absolute Nucleated RBC 0.000 0.000 Nucleated RBC % (auto) 0.0 0.0 Smear Tech's Comments VERIFIED PT 11.5 INR 0.9 Anion Gap 10 L 13 Estim Creat Clear Calc 60.4 65.0 Estimated GFR 42 46 Random Glucose 131 H 123 H Estimat Average Glucose 100 Hemoglobin A1c % 5.1 Calcium 8.4 8.4 Total Bilirubin 0.4 Direct Bilirubin 0.1 AST 20 ALT 10 Alkaline Phosphatase 71 Total Protein 7.6 Albumin 3.6 Lipase 27 Assessment and Plan (1) IBS (irritable bowel syndrome): Status: Acute (2) Acute diverticulitis: Status: Acute Plan 72 year old female with history of ILD with chronic hypoexmic respiratory failure on 3 L supplemental O2 at baseline, GERD, hypertension, unspecified asthma, hypothyroidism, unspecified peripheral neuropathy, who is morbidly obese with BMI greater than 52 admitted for further management of diverticulitis having failed outpt therapies. #Acute sigmoid diverticulitis, no perf -continue IV Abx -surgery consult -outpt gi follow up -clear liquid and advance as heraclio #Weakness -pt eval prior to dc # unspecified asthma/ILD with chronic hypoxemic hypercapnic respiratory failure -no acute exacerbation -continue maintenance inhalers, albuterol p.r.n. -continue home supplemental O2 at 3 L via nasal cannula # hypertension -continue losartan, carvedilol # hypothyroidism -continue levothyroxine # unspecified polyneuropathy -continue Lyrica #hyperglycemia--probably d/t acute ilness, Hgb A1C is 5.1 # morbid obesity BMI greater than 52 -weight loss efforts encouraged, counseled on lifestyle modification DVT prophylaxis-Lovenox Full code need for inpatient: management of acute sigmoid diverticulitis requiring IV antibiotics having failed outpatient therapies. Quality Stroke Does the patient have a stroke diagnosis?: No VTE Prior VTE?: No VTE Risk Level:: Medical - moderate - high VTE Device Contraindication: Treatment Not Indicated VTE Drug Contraindication: N/A - Med Ordered
--- NOTE | 2023-07-05 09:15 | PC.NURSE ---
Patient sitting up in chair watching tv, reports 10/10 abdominal pain, tylenol administered at this time.
[2023-07-05] MEDS: Acetaminophen 325 MG TABLET 650 MG PO ×2 (09:38→17:55)
--- NOTE | 2023-07-05 10:41 | MHC.EDTECH ---
pt was given a pitcher of water
--- NOTE | 2023-07-05 11:30 | PM.CNGS ---
History of Present Illness Consult details Consult date: 07/05/23 Requesting physician: Kevin Guerra Narrative: 72-year-old female patient previously evaluated as an outpatient with a history of diverticulitis returning to the emergency department with complaints of bilateral lower quadrant abdominal pain and diarrhea. Her past history is significant for morbid obesity, sleep apnea, hypertension, asthma, chronic home O2, severe arthritis. Previous evaluation revealed uncomplicated sigmoid diverticulitis. She reports a least 5 episodes of watery diarrhea without fever, chills, nausea or vomiting. CT abdomen/pelvis shows mild colonic diverticulosis with circumferential mucosal thickening of the sigmoid colon again demonstrated which appears slightly more accentuated than imaging 9 days ago however this may be attributed to relatively decompressed status of the area. There is also some minimal adjacent pericolonic stranding adjacent to the proximal sigmoid colon which is again noted. Described as nonspecific findings possibly representing a very mild diverticulitis. She has been admitted to the hospitalist service for IV antibiotics. Review of Systems Review of Systems: Yes all other systems are reviewed and are negative Constitutional: Constitutional: Denies chills and Denies fever(s) Cardiovascular: Cardiovascular: Reports dyspnea on exertion Respiratory: Respiratory: Reports dyspnea on exertion Gastrointestinal: Gastrointestinal: Reports abdominal pain, Reports diarrhea, Denies nausea and Denies vomiting Musculoskeletal: Musculoskeletal: Reports arthralgias PMFSH Past Medical History Medical History Respiratory failure Interstitial lung disease Seasonal allergies Diarrhea Neuropathy Asthma Hypercholesteremia GERD (gastroesophageal reflux disease) Thyroid activity decreased Hypertension Family History Family History Mother Asthma Father No problems noted. 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 Housing: Apartment Housing Other:: [place] Do you presently have visiting nurse or other home services: No Unable to assess alcohol history related to: Unknown Alcohol intake: never Patient Tobacco Use Status: Never used Tobacco Smoked in Last 30 Days: No Second Hand Smoke Exposure: No Use of substances other than those prescribed or required for medical reasons: No Advance Directives: No Advance Directives Information Provided: No Nutrition Risks: Acute nausea or vomiting x1 week service: No Current occupational status: retired Meds Allergies Allergy/AdvReac Type Severity Reaction Status Date / Time celecoxib [From CELEBREX] Allergy Unknown RASH Verified 07/04/23 13:27 Latex, Natural Rubber Allergy Unknown Rash Verified 07/04/23 13:27 ibuprofen [IBUPROFEN] AdvReac Intermediate RASH Verified 07/04/23 13:27 Active Medications: Current Medications Acetaminophen (Acetaminophen 325 Mg Tablet) 650 mg PO Q6H PRN PRN Reason: Pain, Mild (Pain Scale 1-3) Last Admin: 07/05/23 09:38 Dose: 650 mg Atorvastatin Calcium (Atorvastatin Calcium 10 Mg Tablet) 10 mg PO BEDTIME [facility] Last Admin: 07/04/23 20:48 Dose: 10 mg Carvedilol (Carvedilol 6.25 Mg Tablet) 6.25 mg PO BIDWM [facility]; Protocol Last Admin: 07/05/23 08:08 Dose: 6.25 mg Dicyclomine HCl (Dicyclomine Hcl 10 Mg Capsule) 10 mg PO TID PRN PRN Reason: Abdominal Pain Enoxaparin Sodium (Enoxaparin Sodium 40 Mg/0.4 Ml Syringe) 40 mg SUBCUT Q24H [facility] Last Admin: 07/04/23 20:48 Dose: 40 mg Ferrous Sulfate (Ferrous Sulfate 324 Mg Tablet.Dr) 324 mg PO DAILY [facility] Last Admin: 07/05/23 08:08 Dose: 324 mg Fluticasone/Vilanterol (Fluticasone/Vilanterol 100/25 Blst.W.Dev) 1 puff INHALE RDAILY [facility] Last Admin: 07/05/23 08:11 Dose: 1 puff Furosemide (Furosemide 40 Mg Tablet) 80 mg PO DAILY [facility]; Protocol Last Admin: 07/05/23 08:07 Dose: 80 mg Piperacillin Sod/Tazobactam (Sod 4.5 gm/ Sodium Chloride) 100 mls @ 200 mls/hr IV Q6H [facility] Last Infusion: 07/05/23 10:37 Dose: Infused Levothyroxine Sodium (Levothyroxine Sodium 50 Mcg Tablet) 50 mcg PO DAILY@0600 [facility] Last Admin: 07/05/23 06:13 Dose: 50 mcg Loratadine (Loratadine 10 Mg Tablet) 10 mg PO DAILY [facility] Last Admin: 07/05/23 08:08 Dose: 10 mg Losartan Potassium (Losartan Potassium 25 Mg Tablet) 25 mg PO DAILY [facility]; Protocol Last Admin: 07/05/23 08:08 Dose: 25 mg Magnesium Oxide (Magnesium Oxide 400 Mg Tablet) 400 mg PO DAILY [facility] Last Admin: 07/05/23 08:08 Dose: 400 mg Montelukast Sodium (Montelukast Sodium 10 Mg Tablet) 10 mg PO BEDTIME [facility] Last Admin: 07/04/23 20:48 Dose: 10 mg Omeprazole (Omeprazole 20 Mg Capsule.Dr) 20 mg PO DAILY@0630 [facility] Last Admin: 07/05/23 06:13 Dose: 20 mg Ondansetron HCl (Ondansetron Hcl 4 Mg/2 Ml Vial) 4 mg IVPUSH Q8H PRN PRN Reason: Nausea and Vomiting Pregabalin (Pregabalin 75 Mg Capsule) 225 mg PO BID [facility] Last Admin: 07/05/23 08:07 Dose: 225 mg Senna (Sennosides 8.6 Mg Tablet) 17.2 mg PO BEDTIME PRN PRN Reason: Constipation Sodium Chloride (0.9 % Sodium Chloride Flush 3 Ml Syringe) 3 ml IVFLUSH QSHIFT [facility] Last Admin: 07/05/23 08:08 Dose: 3 ml Home Medications Medication Instructions Recorded Confirmed Last Taken Type carvedilol 6.25 mg tablet 1 tab PO BIDWM 03/13/21 07/04/23 07/04/23 History cetirizine 10 mg tablet 1 tab PO DAILY 03/13/21 07/04/23 07/04/23 History ferrous sulfate 325 mg (65 mg 1 tab PO DAILY 03/13/21 07/04/23 07/04/23 History iron) tablet levothyroxine 50 mcg tablet 1 tab PO DAILY@0600 03/13/21 07/04/23 07/04/23 History magnesium oxide 400 mg (241.3 mg 1 tab PO DAILY 03/13/21 07/04/23 07/04/23 History magnesium) tablet montelukast 10 mg tablet 1 tab PO BEDTIME 03/13/21 07/04/23 07/03/23 History pregabalin 225 mg capsule 1 cap PO BID 03/13/21 07/04/23 07/04/23 History atorvastatin 10 mg tablet 1 tab PO BEDTIME 03/14/21 07/04/23 07/03/23 History dexlansoprazole 60 mg 60 mg PO DAILY@0630 06/07/21 07/04/23 07/04/23 History capsule,biphase delayed release (Dexilant) losartan 25 mg tablet 25 mg PO DAILY 06/07/21 07/04/23 07/04/23 History furosemide 40 mg tablet 80 mg PO DAILY 10/02/22 07/04/23 07/04/23 History dicyclomine 10 mg capsule 10 mg PO TID PRN Abdominal Pain 06/02/23 07/04/23 07/03/23 History fluticasone 250 mcg-salmeterol 50 1 ea inhalation BID 06/02/23 07/04/23 07/04/23 History mcg/dose blistr powdr for inhalation (Advair Diskus) methylcellulose (laxative) 500 mg 500 mg PO DAILY 07/04/23 07/04/23 07/04/23 History tablet (Citrucel) ondansetron HCl 4 mg tablet 4 mg PO Q8H PRN Nausea 07/04/23 07/04/23 07/04/23 History Physical Exam Vital Signs: Vital Signs: Last Vital Signs Temp 97.8 F 07/05/23 08:43 Pulse 98 07/05/23 08:43 Resp 17 07/05/23 08:43 BP 148/63 H 07/05/23 08:43 Pulse Ox 96 07/05/23 08:43 O2 Del Method Nasal Cannula 07/05/23 08:43 O2 Flow Rate 3 07/05/23 08:43 BMI result Body Mass Index 52.4 Const: General: no acute distress Nutritional Appearance: obese Orientation/consciousness: patient oriented x3 HEENT: Head: Yes normocephalic and Yes atraumatic Resp: Effort & Inspection: no audible wheezes, no cough and tachypneic GI: Inspection: Yes Abdominal panniculus present and Yes obesity Palpation (GI): Soft to palpation, Tenderness to palpation present (GI) in the LLQ and in the RLQ, no guarding and not rigid Percussion: Yes normal to percussion Auscultation: normal bowel sounds Abdomen image: 1. Area of tenderness Neuro: General: patient oriented x3 Extrem: General: Yes edema Results Labs 07/05/23 08:10 07/05/23 08:10 Labs: Abnormal lab results 07/04/23 07/05/23 Range/Units 14:44 08:10 RBC 4.02 L 3.78 L (4.20-5.50) X10*6/uL Hgb 11.5 L 10.9 L (12.0-16.0) g/dl Hct 35.2 L 33.1 L (37.0-47.0) % Eos % (Auto) 5.4 H 5.3 H (0-4) % Carbon Dioxide 34 H 34 H (22-29) mmol/L Anion Gap 10 L (12-20) BUN 17 H (9-16) mg/dL Random Glucose 131 H 123 H (60-115) mg/dL Short CBC 07/04/23 07/05/23 Range/Units 14:44 08:10 WBC 7.4 7.4 (4.8-10.8) X10*3/uL Hgb 11.5 L 10.9 L (12.0-16.0) g/dl Hct 35.2 L 33.1 L (37.0-47.0) % Plt Count 218 232 (160-400) X10*3/uL BMP 07/04/23 07/05/23 14:44 08:10 Sodium 140 143 Potassium 4.3 4.1 Chloride 100 100 Carbon Dioxide 34 H 34 H BUN 17 H 15 Creatinine 1.25 1.16 Calcium 8.4 8.4 Liver Function 07/04/23 Range/Units 14:44 Total Bilirubin 0.4 (0.0-1.0) mg/dL Direct Bilirubin 0.1 (0.0-0.5) mg/dL AST 20 (5-31) U/L ALT 10 (0-31) U/L Alkaline Phosphatase 71 (39-117) U/L Albumin 3.6 (3.5-5.0) g/dL All other labs normal. Assessment and Plan (1) Acute diverticulitis: Status: Acute Plan 72-year-old morbidly obese female with complaints of lower abdominal pain felt to possibly have diverticulitis. She presents now with lower abdominal pain and profuse diarrhea. She has been on antibiotics for a prolonged period of time C difficile colitis is also possibility. Agree with stool for C diff. review of CT does reveal thickening of the colon but no evidence of diverticular abscess, perforation/free air. Will continue to monitor during this hospitalization. Procedures Date of Service Date of Service: 07/05/23
--- NOTE | 2023-07-05 12:43 | MHC.EDTECH ---
pt ate 75% of her lunch
--- NOTE | 2023-07-05 12:44 | MHC.EDTECH ---
pt was assisted to the commode with a walker and then per pt request wanted to lay down in bed.
[2023-07-05 14:16] VITALS: BP 129/68; PULSE 58; RESP 18; TEMP 36.1; O2SAT 97
--- NOTE | 2023-07-05 14:41 | MHC.CM.PN ---
Met with patient in regards to dischrage planning. Patient lives with her sig other, [facility]. Patient is no longer able to care for herself or her sig other. Physical therapy eval is completed. Short term rehab is recommended. Patient is hoping to go to a facility for STR and transition to nursing home care. The patient is hoping for the facility she goes to to be able to accept Edward as well. Patient agreeable to referral being broadcasted to all facilities within 15 miles of patient's resident that is contracted with Medicare and [employer]. This information was forwarded in referral. IMM explained and signed. HCP on file lists [facility]. Jocelynn would like to change HCP so Salome is 1st agent and Edward is 2nd. Continue to monitor for d/c needs.
[2023-07-05] MEDS: Enoxaparin Sodium 40 MG/0.4 ML SYRINGE SUBCUT (21:51)
[2023-07-05] MEDS: Atorvastatin Calcium 10 MG TABLET PO (21:55)
[2023-07-05] MEDS: Montelukast Sodium 10 MG TABLET PO (21:55)
[2023-07-05 22:00] VITALS: BP 117/55; PULSE 62; RESP 18; TEMP 36.3; O2SAT 100
--- NOTE | 2023-07-05 22:23 | MHC.EDTECH ---
pt got up to commode changed her bed adn she had a bowel
[2023-07-06] VITALS (8 sets, daily range): BP systolic 111–147; BP diastolic 52–69; PULSE 61–63; RESP 16–18; TEMP 35.9–36.2; O2SAT 94–100
[2023-07-06] MEDS: 0.9 % Sodium Chloride Flush 3 ML SYRINGE IVFLUSH ×4 (00:04→20:18)
[2023-07-06] MEDS: Piperacillin Sodium/Tazobactam 4.5 GM in 0.9 % Sodium Chloride 100 ML IV ×4 (04:15→20:06)
--- NOTE | 2023-07-06 04:20 | PC.NURSE ---
this rn assumed care of pt @ 0330. pt medicated according to jun. lights dimmed to promote rest
[2023-07-06] MEDS: Fluticasone/Vilanterol 100/25 BLST.W.DEV 1 PUFF INHALE (07:01)
[2023-07-06] MEDS: Levothyroxine Sodium 50 MCG TABLET PO (07:05)
[2023-07-06] MEDS: Omeprazole/Na Bicarb Oral Susp 20 MG/10 ML UD Cup PO (07:06)
--- NOTE | 2023-07-06 07:37 | PC.NURSE ---
ASSUMED CARE AT 0700. PT ALERT AND ORIENTED x3, SHE DENIES PAIN AT THIS TIME. RESPIRATORY THERAPIST AT BEDSIDE. WILL CONTINUE TO OBSERVE.
--- NOTE | 2023-07-06 08:00 | MHC.EDTECH ---
pt had a 3 little skin peeling on the right side of under her stomach (little bit of pink skin) barrier scream was applied
[2023-07-06] MEDS: Furosemide 40 MG TABLET 80 MG PO (09:01)
[2023-07-06] MEDS: Loratadine 10 MG TABLET PO (09:01)
[2023-07-06] MEDS: Losartan Potassium 25 MG TABLET PO (09:01)
[2023-07-06] MEDS: Ferrous Sulfate 324 MG TABLET.DR PO (09:01)
[2023-07-06] MEDS: carvediloL 6.25 MG TABLET PO ×2 (09:01→17:50)
[2023-07-06] MEDS: Pregabalin 75 MG CAPSULE 225 MG PO ×2 (09:01→20:05)
[2023-07-06] MEDS: Magnesium Oxide 400 MG TABLET PO (09:01)
--- NOTE | 2023-07-06 09:19 | PC.NURSE ---
PHYSICAL THERAPY AT BEDSIDE. PT IN RECLINER, MEDS GIVEN DOCUMENTED. DENIES PAIN AT THIS TIME. CALLED BED MANAGEMENT TO CHECK ON BED ASSIGNMENT STATUS. WILL FOLLOW UP.
--- NOTE | 2023-07-06 09:19 | MHC.EDTECH ---
pt was washed up and refused teeth brush due to not having her teeth bed change and 1 assist to the the commode and then to the recliner
--- NOTE | 2023-07-06 09:40 | MHC.EDTECH ---
pt was assisted to the commode with a walker and then back to the recliner.
--- NOTE | 2023-07-06 10:21 | PC.NURSE ---
BED ASSIGNED [id number], REPORT SENT, TRANSPORTER AT BEDSIDE. 97.8 T, 64, 14, 127/57 R FOREARM, 100% 3L N/C. 3L BASELINE.
--- NOTE | 2023-07-06 10:35 | MHC.EDTECH ---
pt ate 100% breakfast
--- NOTE | 2023-07-06 11:11 | HO.PM.IMPN ---
Subjective Subjective Date of Service: 07/06/23 Interval History: f/u on acute diverticuliti interval history: pain is better, no n/v, has loose stool Physical Exam Vital Signs: Vital Signs: Last Vital Signs Temp 96.8 F 07/06/23 10:45 Pulse 61 07/06/23 10:45 Resp 18 07/06/23 10:45 BP 115/52 L 07/06/23 10:45 Pulse Ox 100 07/06/23 10:45 O2 Del Method Room Air 07/06/23 10:45 O2 Flow Rate 3.5 07/06/23 04:43 BMI result Body Mass Index 52.4 Objective Data Active Medications Acetaminophen (Acetaminophen 325 Mg Tablet) 650 mg PO Q6H PRN PRN Reason: Pain, Mild (Pain Scale 1-3) Last Admin: 07/05/23 17:55 Dose: 650 mg Documented By: GAETANO Atorvastatin Calcium (Atorvastatin Calcium 10 Mg Tablet) 10 mg PO BEDTIME [facility] Last Admin: 07/05/23 21:55 Dose: 10 mg Documented By: NICHOLE Carvedilol (Carvedilol 6.25 Mg Tablet) 6.25 mg PO BIDWM [facility]; Protocol Last Admin: 07/06/23 09:01 Dose: 6.25 mg Documented By: MAY Dicyclomine HCl (Dicyclomine Hcl 10 Mg Capsule) 10 mg PO TID PRN PRN Reason: Abdominal Pain Enoxaparin Sodium (Enoxaparin Sodium 40 Mg/0.4 Ml Syringe) 40 mg SUBCUT Q24H [facility] Last Admin: 07/05/23 21:51 Dose: 40 mg Documented By: NICHOLE Ferrous Sulfate (Ferrous Sulfate 324 Mg Tablet.Dr) 324 mg PO DAILY [facility] Last Admin: 07/06/23 09:01 Dose: 324 mg Documented By: MAY Fluticasone/Vilanterol (Fluticasone/Vilanterol 100/25 Blst.W.Dev) 1 puff INHALE RDAILY [facility] Last Admin: 07/06/23 07:01 Dose: 1 puff Documented By: PAUL Furosemide (Furosemide 40 Mg Tablet) 80 mg PO DAILY [facility]; Protocol Last Admin: 07/06/23 09:01 Dose: 80 mg Documented By: MAY Piperacillin Sod/Tazobactam (Sod 4.5 gm/ Sodium Chloride) 100 mls @ 200 mls/hr IV Q6H [facility] Last Admin: 07/06/23 10:06 Dose: 200 mls/hr Documented By: MAY Levothyroxine Sodium (Levothyroxine Sodium 50 Mcg Tablet) 50 mcg PO DAILY@0600 [facility] Last Admin: 07/06/23 07:05 Dose: 50 mcg Documented By: LAVON Loratadine (Loratadine 10 Mg Tablet) 10 mg PO DAILY [facility] Last Admin: 07/06/23 09:01 Dose: 10 mg Documented By: MAY Losartan Potassium (Losartan Potassium 25 Mg Tablet) 25 mg PO DAILY [facility]; Protocol Last Admin: 07/06/23 09:01 Dose: 25 mg Documented By: MAY Magnesium Oxide (Magnesium Oxide 400 Mg Tablet) 400 mg PO DAILY [facility] Last Admin: 07/06/23 09:01 Dose: 400 mg Documented By: MAY Montelukast Sodium (Montelukast Sodium 10 Mg Tablet) 10 mg PO BEDTIME [facility] Last Admin: 07/05/23 21:55 Dose: 10 mg Documented By: NICHOLE Omeprazole (Omeprazole/Na Bicarb Oral Susp 20 Mg/10 Ml Ud Cup) 20 mg PO DAILY@0630 [facility] Last Admin: 07/06/23 07:06 Dose: 20 mg Documented By: LAVON Ondansetron HCl (Ondansetron Hcl 4 Mg/2 Ml Vial) 4 mg IVPUSH Q8H PRN PRN Reason: Nausea and Vomiting Pregabalin (Pregabalin 75 Mg Capsule) 225 mg PO BID [facility] Last Admin: 07/06/23 09:01 Dose: 225 mg Documented By: MAY Senna (Sennosides 8.6 Mg Tablet) 17.2 mg PO BEDTIME PRN PRN Reason: Constipation Sodium Chloride (0.9 % Sodium Chloride Flush 3 Ml Syringe) 3 ml IVFLUSH QSHIFT [facility] Last Admin: 07/06/23 09:02 Dose: 3 ml Documented By: MAY Labs 07/05/23 08:10 07/05/23 08:10 Assessment and Plan (1) IBS (irritable bowel syndrome): Status: Acute (2) Acute diverticulitis: Status: Acute Plan 72 year old female with history of ILD with chronic hypoexmic respiratory failure on 3 L supplemental O2 at baseline, GERD, hypertension, unspecified asthma, hypothyroidism, unspecified peripheral neuropathy, who is morbidly obese with BMI greater than 52 admitted for further management of diverticulitis having failed outpt therapies. #Acute sigmoid diverticulitis, no perf or abscless, pain is better -continue IV Abx -surgery consult noted -outpt gi follow up -Advance to full liquid diet #Weakness -pt eval prior to dc # unspecified asthma/ILD with chronic hypoxemic hypercapnic respiratory failure -no acute exacerbation -continue maintenance inhalers, albuterol p.r.n. -continue home supplemental O2 at 3 L via nasal cannula #loose stool.. no cdif collected # hypertension -continue losartan, carvedilol # hypothyroidism -continue levothyroxine # unspecified polyneuropathy -continue Lyrica #hyperglycemia--probably d/t acute ilness, Hgb A1C is 5.1 # morbid obesity BMI greater than 52 -weight loss efforts encouraged, counseled on lifestyle modification PT is recommending STR DVT prophylaxis-Lovenox Full code need for inpatient: management of acute sigmoid diverticulitis requiring IV antibiotics having failed outpatient therapies. Quality Stroke Does the patient have a stroke diagnosis?: No VTE Prior VTE?: No VTE Risk Level:: Medical - moderate - high VTE Device Contraindication: Treatment Not Indicated VTE Drug Contraindication: N/A - Med Ordered
[2023-07-06 12:03] LABS: Glucose, Whole Blood 89 mg/dL (60-115)
--- NOTE | 2023-07-06 12:10 | PC.NURSE ---
Po sterior thighs
--- NOTE | 2023-07-06 12:24 | PM.PNGS ---
Subjective Subjective Date of Service: 07/06/23 Interval history: Overall pain is improved, continues to have loose stool. Physical Exam Vital Signs: Vital Signs: Last Vital Signs Temp 96.8 F 07/06/23 10:45 Pulse 61 07/06/23 10:45 Resp 18 07/06/23 10:45 BP 115/52 L 07/06/23 10:45 Pulse Ox 100 07/06/23 10:45 O2 Del Method Room Air 07/06/23 10:45 O2 Flow Rate 3.5 07/06/23 04:43 BMI result Body Mass Index 52.4 Const: General: no acute distress Nutritional Appearance: obese Resp: Effort & Inspection: normal respiratory effort GI: Inspection: Yes obesity Palpation (GI): Soft to palpation, Tenderness to palpation present (GI) in the LLQ and in the RLQ, no guarding and not rigid Percussion: Yes normal to percussion Extrem: General: Yes edema Objective Data Active Medications Acetaminophen (Acetaminophen 325 Mg Tablet) 650 mg PO Q6H PRN PRN Reason: Pain, Mild (Pain Scale 1-3) Last Admin: 07/05/23 17:55 Dose: 650 mg Documented By: GAETANO Atorvastatin Calcium (Atorvastatin Calcium 10 Mg Tablet) 10 mg PO BEDTIME [facility] Last Admin: 07/05/23 21:55 Dose: 10 mg Documented By: NICHOLE Carvedilol (Carvedilol 6.25 Mg Tablet) 6.25 mg PO BIDWM [facility]; Protocol Last Admin: 07/06/23 09:01 Dose: 6.25 mg Documented By: MAY Dicyclomine HCl (Dicyclomine Hcl 10 Mg Capsule) 10 mg PO TID PRN PRN Reason: Abdominal Pain Enoxaparin Sodium (Enoxaparin Sodium 40 Mg/0.4 Ml Syringe) 40 mg SUBCUT Q24H [facility] Last Admin: 07/05/23 21:51 Dose: 40 mg Documented By: NICHOLE Ferrous Sulfate (Ferrous Sulfate 324 Mg Tablet.Dr) 324 mg PO DAILY [facility] Last Admin: 07/06/23 09:01 Dose: 324 mg Documented By: MAY Fluticasone/Vilanterol (Fluticasone/Vilanterol 100/25 Blst.W.Dev) 1 puff INHALE RDAILY [facility] Last Admin: 07/06/23 07:01 Dose: 1 puff Documented By: PAUL Furosemide (Furosemide 40 Mg Tablet) 80 mg PO DAILY [facility]; Protocol Last Admin: 07/06/23 09:01 Dose: 80 mg Documented By: MAY Piperacillin Sod/Tazobactam (Sod 4.5 gm/ Sodium Chloride) 100 mls @ 200 mls/hr IV Q6H [facility] Last Infusion: 07/06/23 10:35 Dose: Infused Documented By: ALEX Levothyroxine Sodium (Levothyroxine Sodium 50 Mcg Tablet) 50 mcg PO DAILY@0600 [facility] Last Admin: 07/06/23 07:05 Dose: 50 mcg Documented By: LAVON Loratadine (Loratadine 10 Mg Tablet) 10 mg PO DAILY [facility] Last Admin: 07/06/23 09:01 Dose: 10 mg Documented By: MAY Losartan Potassium (Losartan Potassium 25 Mg Tablet) 25 mg PO DAILY [facility]; Protocol Last Admin: 07/06/23 09:01 Dose: 25 mg Documented By: MAY Magnesium Oxide (Magnesium Oxide 400 Mg Tablet) 400 mg PO DAILY [facility] Last Admin: 07/06/23 09:01 Dose: 400 mg Documented By: MAY Montelukast Sodium (Montelukast Sodium 10 Mg Tablet) 10 mg PO BEDTIME [facility] Last Admin: 07/05/23 21:55 Dose: 10 mg Documented By: NICHOLE Omeprazole (Omeprazole/Na Bicarb Oral Susp 20 Mg/10 Ml Ud Cup) 20 mg PO DAILY@0630 [facility] Last Admin: 07/06/23 07:06 Dose: 20 mg Documented By: LAVON Ondansetron HCl (Ondansetron Hcl 4 Mg/2 Ml Vial) 4 mg IVPUSH Q8H PRN PRN Reason: Nausea and Vomiting Pregabalin (Pregabalin 75 Mg Capsule) 225 mg PO BID [facility] Last Admin: 07/06/23 09:01 Dose: 225 mg Documented By: MAY Senna (Sennosides 8.6 Mg Tablet) 17.2 mg PO BEDTIME PRN PRN Reason: Constipation Sodium Chloride (0.9 % Sodium Chloride Flush 3 Ml Syringe) 3 ml IVFLUSH QSHIFT [facility] Last Admin: 07/06/23 09:02 Dose: 3 ml Documented By: MAY Labs 07/05/23 08:10 07/05/23 08:10 Labs: Laboratory Results - last 24 hr 07/06/23 11:58 POC Glucose 89 Procedures Date of Service Date of Service: 07/06/23 Progress Note: A&P Assessment and plan (1) Acute diverticulitis: Status: Acute Plan 72-year-old female patient with a prior history of diverticulitis now with acute abdominal pain in lower abdomen. Overall she is improved today but continues to have diarrhea. CT consistent with diverticulitis although I am concerned about an element of colitis as well. C diff titer has not been collected despite the diarrhea. Patient on Zosyn. WBC normal. Will continue to monitor. Time Spent With Patient Time: Total time managing care of this patient today ____ minutes. Quality Stroke Does the patient have a stroke diagnosis?: No VTE Prior VTE?: No VTE Risk Level:: Medical - moderate - high VTE Device Contraindication: Treatment Not Indicated VTE Drug Contraindication: N/A - Med Ordered
[2023-07-06 13:09] LABS: Hematocrit 34.1 % (37.0-47.0); Hemoglobin 11.3 g/dl (12.0-16.0); Mean Corpuscular HGB Conc 33.1 g/dl (31.0-35.0); Mean Corpuscular Volume 87.4 fL (80.0-98.0); Mean Platelet Volume 11.1 fL (9.4-12.3); Platelet Count 236 X10*3/uL (160-400); White Blood Count 6.7 X10*3/uL (4.8-10.8)
[2023-07-06 13:25] LABS: Anion Gap 12 (12-20); Blood Urea Nitrogen 11 mg/dL (9-16); Calcium 8.3 mg/dL (8.4-10.2); Carbon Dioxide 32 mmol/L (22-29); Chloride 99 mmol/L (96-108); Creatinine Clr Calc Pharmacy 66.7; Estimated Glomerular Filt Rate 48; Glucose Random 94 mg/dL (60-115); Potassium 3.5 mmol/L (3.3-5.1); Sodium 139 mmol/L (135-145)
[2023-07-06] MEDS: Acetaminophen 325 MG TABLET 650 MG PO (14:02)
[2023-07-06 16:15] LABS: Glucose, Whole Blood 100 mg/dL (60-115)
[2023-07-06] MEDS: Atorvastatin Calcium 10 MG TABLET PO (20:05)
[2023-07-06] MEDS: Montelukast Sodium 10 MG TABLET PO (20:05)
[2023-07-06] MEDS: Enoxaparin Sodium 40 MG/0.4 ML SYRINGE SUBCUT (20:06)
[2023-07-06 20:43] LABS: Glucose, Whole Blood 88 mg/dL (60-115)
[2023-07-07] MEDS: Piperacillin Sodium/Tazobactam 4.5 GM in 0.9 % Sodium Chloride 100 ML IV ×4 (02:13→21:44)
[2023-07-07 03:01] VITALS: BP 127/58; PULSE 67; RESP 18; TEMP 36.2; O2SAT 99
[2023-07-07] MEDS: Levothyroxine Sodium 50 MCG TABLET PO (05:55)
[2023-07-07] MEDS: Omeprazole/Na Bicarb Oral Susp 20 MG/10 ML UD Cup PO (05:56)
[2023-07-07 07:22] VITALS: BP 121/57; PULSE 61; RESP 17; TEMP 37; O2SAT 97
[2023-07-07] MEDS: Fluticasone/Vilanterol 100/25 BLST.W.DEV 1 PUFF INHALE (07:27)
[2023-07-07 07:28] VITALS: PULSE 67; RESP 18; O2SAT 96
[2023-07-07 07:45] LABS: Glucose, Whole Blood 69 mg/dL (60-115)
[2023-07-07] MEDS: 0.9 % Sodium Chloride Flush 3 ML SYRINGE IVFLUSH ×2 (09:25→21:40)
[2023-07-07] MEDS: Furosemide 40 MG TABLET 80 MG PO (09:25)
[2023-07-07] MEDS: Pregabalin 75 MG CAPSULE 225 MG PO ×2 (09:25→21:23)
[2023-07-07] MEDS: Magnesium Oxide 400 MG TABLET PO (09:26)
[2023-07-07] MEDS: Loratadine 10 MG TABLET PO (09:26)
[2023-07-07] MEDS: carvediloL 6.25 MG TABLET PO ×2 (09:26→17:24)
[2023-07-07] MEDS: Ferrous Sulfate 324 MG TABLET.DR PO (09:26)
[2023-07-07] MEDS: Losartan Potassium 25 MG TABLET PO (09:26)
[2023-07-07] MEDS: Acetaminophen 325 MG TABLET 650 MG PO ×2 (09:50→18:03)
[2023-07-07] MEDS: Dicyclomine HCl 10 MG CAPSULE PO ×2 (09:51→18:04)
[2023-07-07 11:17] LABS: Estimated Average Glucose 94 mg/dL; Hemoglobin A1c % 4.9 % (<6.0)
[2023-07-07 11:22] LABS: Glucose, Whole Blood 84 mg/dL (60-115)
--- NOTE | 2023-07-07 13:42 | PM.PNGS ---
Subjective Subjective Date of Service: 10/17/23 Interval history: pt feeling better less diarhea Physical Exam Vital Signs: Vital Signs: Last Vital Signs Temp 98.6 F 07/07/23 07:22 Pulse 67 07/07/23 07:28 Resp 18 07/07/23 07:28 BP 121/57 L 07/07/23 07:22 Pulse Ox 97 07/07/23 07:22 O2 Del Method Nasal Cannula 07/07/23 07:22 O2 Flow Rate 3.0 07/07/23 07:22 BMI result Body Mass Index 52.4 GI: Other: soft nontender active bowel sound Objective Data Active Medications Acetaminophen (Acetaminophen 325 Mg Tablet) 650 mg PO Q6H PRN PRN Reason: Pain, Mild (Pain Scale 1-3) Last Admin: 07/07/23 09:50 Dose: 650 mg Documented By: ANEUDY Atorvastatin Calcium (Atorvastatin Calcium 10 Mg Tablet) 10 mg PO BEDTIME [facility] Last Admin: 07/06/23 20:05 Dose: 10 mg Documented By: BRENDA Carvedilol (Carvedilol 6.25 Mg Tablet) 6.25 mg PO BIDWM [facility]; Protocol Last Admin: 07/07/23 09:26 Dose: 6.25 mg Documented By: ANEUDY Dicyclomine HCl (Dicyclomine Hcl 10 Mg Capsule) 10 mg PO TID PRN PRN Reason: Abdominal Pain Last Admin: 07/07/23 09:51 Dose: 10 mg Documented By: ANEUDY Enoxaparin Sodium (Enoxaparin Sodium 40 Mg/0.4 Ml Syringe) 40 mg SUBCUT Q24H [facility] Last Admin: 07/06/23 20:06 Dose: 40 mg Documented By: BRENDA Ferrous Sulfate (Ferrous Sulfate 324 Mg Tablet.Dr) 324 mg PO DAILY [facility] Last Admin: 07/07/23 09:26 Dose: 324 mg Documented By: ANEUDY Fluticasone/Vilanterol (Fluticasone/Vilanterol 100/25 Blst.W.Dev) 1 puff INHALE RDAILY [facility] Last Admin: 07/07/23 07:27 Dose: 1 puff Documented By: PAUL Furosemide (Furosemide 40 Mg Tablet) 80 mg PO DAILY [facility]; Protocol Last Admin: 07/07/23 09:25 Dose: 80 mg Documented By: ANEUDY Piperacillin Sod/Tazobactam (Sod 4.5 gm/ Sodium Chloride) 100 mls @ 200 mls/hr IV Q6H [facility] Last Infusion: 07/07/23 10:53 Dose: Infused Documented By: ANEUDY Levothyroxine Sodium (Levothyroxine Sodium 50 Mcg Tablet) 50 mcg PO DAILY@0600 [facility] Last Admin: 07/07/23 05:55 Dose: 50 mcg Documented By: BRENDA Loratadine (Loratadine 10 Mg Tablet) 10 mg PO DAILY [facility] Last Admin: 07/07/23 09:26 Dose: 10 mg Documented By: ANEUDY Losartan Potassium (Losartan Potassium 25 Mg Tablet) 25 mg PO DAILY [facility]; Protocol Last Admin: 07/07/23 09:26 Dose: 25 mg Documented By: ANEUDY Magnesium Oxide (Magnesium Oxide 400 Mg Tablet) 400 mg PO DAILY [facility] Last Admin: 07/07/23 09:26 Dose: 400 mg Documented By: ANEUDY Montelukast Sodium (Montelukast Sodium 10 Mg Tablet) 10 mg PO BEDTIME [facility] Last Admin: 07/06/23 20:05 Dose: 10 mg Documented By: BRENDA Omeprazole (Omeprazole/Na Bicarb Oral Susp 20 Mg/10 Ml Ud Cup) 20 mg PO DAILY@0630 [facility] Last Admin: 07/07/23 05:56 Dose: 20 mg Documented By: BRENDA Ondansetron HCl (Ondansetron Hcl 4 Mg/2 Ml Vial) 4 mg IVPUSH Q8H PRN PRN Reason: Nausea and Vomiting Pregabalin (Pregabalin 75 Mg Capsule) 225 mg PO BID [facility] Last Admin: 07/07/23 09:25 Dose: 225 mg Documented By: ANEUDY Senna (Sennosides 8.6 Mg Tablet) 17.2 mg PO BEDTIME PRN PRN Reason: Constipation Sodium Chloride (0.9 % Sodium Chloride Flush 3 Ml Syringe) 3 ml IVFLUSH QSHIFT [facility] Last Admin: 07/07/23 09:25 Dose: 3 ml Documented By: ANEUDY Labs 07/06/23 12:56 07/06/23 12:56 Labs: Laboratory Results - last 24 hr 07/06/23 07/06/23 07/06/23 12:56 16:09 20:18 POC Glucose 100 88 Estimat Average Glucose 94 Hemoglobin A1c % 4.9 07/07/23 07/07/23 07:29 11:08 POC Glucose 69 84 Estimat Average Glucose Hemoglobin A1c % Procedures Date of Service Date of Service: 10/17/23 Progress Note: A&P Assessment and plan (1) Diverticula of colon: Status: Acute Assessment and Plan: pt with improving diverticultis - advancing diet and iv antibx as per med team no surgical intervention needed Time Spent With Patient Time: Total time managing care of this patient today ____ minutes. Quality Stroke Does the patient have a stroke diagnosis?: No VTE Prior VTE?: No VTE Risk Level:: Medical - moderate - high VTE Device Contraindication: Treatment Not Indicated VTE Drug Contraindication: N/A - Med Ordered
[2023-07-07 16:00] VITALS: BP 135/60; PULSE 67; RESP 16; TEMP 36.2; TEMP 36.5; O2SAT 100; O2SAT 99
[2023-07-07 16:36] LABS: Glucose, Whole Blood 80 mg/dL (60-115)
[2023-07-07 19:26] VITALS: BP 117/56; PULSE 67; RESP 17; TEMP 36.2; O2SAT 95
[2023-07-07] MEDS: Enoxaparin Sodium 40 MG/0.4 ML SYRINGE SUBCUT (19:34)
[2023-07-07 20:06] LABS: Glucose, Whole Blood 121 mg/dL (60-115)
[2023-07-07] MEDS: Montelukast Sodium 10 MG TABLET PO (21:24)
[2023-07-07] MEDS: Atorvastatin Calcium 10 MG TABLET PO (21:24)
[2023-07-07 23:32] VITALS: BP 120/55; PULSE 63; RESP 18; TEMP 36.8; O2SAT 99
[2023-07-08] MEDS: Piperacillin Sodium/Tazobactam 4.5 GM in 0.9 % Sodium Chloride 100 ML IV ×4 (03:00→20:29)
[2023-07-08 03:22] VITALS: BP 110/51; PULSE 69; RESP 18; TEMP 36.6; O2SAT 97
[2023-07-08] MEDS: Levothyroxine Sodium 50 MCG TABLET PO (06:18)
[2023-07-08] MEDS: Omeprazole/Na Bicarb Oral Susp 20 MG/10 ML UD Cup PO (06:18)
[2023-07-08 07:24] LABS: Glucose, Whole Blood 82 mg/dL (60-115)
[2023-07-08 07:46] VITALS: BP 114/54; PULSE 68; RESP 18; TEMP 36.8; O2SAT 97
[2023-07-08] MEDS: Fluticasone/Vilanterol 100/25 BLST.W.DEV 1 PUFF INHALE (08:14)
[2023-07-08 08:18] VITALS: PULSE 88; RESP 18; O2SAT 98
[2023-07-08] MEDS: Losartan Potassium 25 MG TABLET PO (08:59)
[2023-07-08] MEDS: Loratadine 10 MG TABLET PO (09:00)
[2023-07-08] MEDS: Magnesium Oxide 400 MG TABLET PO (09:00)
[2023-07-08] MEDS: Ferrous Sulfate 324 MG TABLET.DR PO (09:00)
[2023-07-08] MEDS: carvediloL 6.25 MG TABLET PO ×2 (09:00→15:43)
[2023-07-08] MEDS: Pregabalin 75 MG CAPSULE 225 MG PO ×2 (09:00→20:30)
[2023-07-08] MEDS: 0.9 % Sodium Chloride Flush 3 ML SYRINGE IVFLUSH ×3 (09:00→20:31)
[2023-07-08] MEDS: Furosemide 40 MG TABLET 80 MG PO (09:00)
[2023-07-08 11:09] LABS: Glucose, Whole Blood 105 mg/dL (60-115)
[2023-07-08 15:38] VITALS: BP 127/60; PULSE 64; RESP 20; TEMP 36.3; O2SAT 97
[2023-07-08] MEDS: Dicyclomine HCl 10 MG CAPSULE PO (15:50)
[2023-07-08] MEDS: Acetaminophen 325 MG TABLET 650 MG PO (15:50)
[2023-07-08 16:22] LABS: Glucose, Whole Blood 103 mg/dL (60-115)
[2023-07-08 19:25] VITALS: BP 111/53; PULSE 67; RESP 18; TEMP 36.3; O2SAT 98
[2023-07-08] MEDS: Montelukast Sodium 10 MG TABLET PO (20:30)
[2023-07-08] MEDS: Atorvastatin Calcium 10 MG TABLET PO (20:30)
[2023-07-08] MEDS: traMADoL HCL 50 MG TABLET 25 MG PO (20:30)
[2023-07-08] MEDS: Enoxaparin Sodium 40 MG/0.4 ML SYRINGE SUBCUT (20:30)
[2023-07-08 20:59] LABS: Glucose, Whole Blood 141 mg/dL (60-115)
[2023-07-08] MEDS: Loperamide HCl 2 MG CAPSULE PO (21:19)
[2023-07-08 23:37] VITALS: BP 151/54; PULSE 62; RESP 18; TEMP 36; O2SAT 98
--- NOTE | 2023-07-09 02:07 | PC.NURSE ---
Pt claimed she had 2x watery stool for the day and requesting for Immodium, Dr. Jackson was notified, Immodium 1 cap po given, no further BM after.
[2023-07-09] MEDS: Piperacillin Sodium/Tazobactam 4.5 GM in 0.9 % Sodium Chloride 100 ML IV ×2 (02:56→09:27)
[2023-07-09 03:59] VITALS: BP 108/52; PULSE 60; RESP 17; TEMP 36; O2SAT 98
[2023-07-09] MEDS: Omeprazole/Na Bicarb Oral Susp 20 MG/10 ML UD Cup PO (05:50)
[2023-07-09] MEDS: Levothyroxine Sodium 50 MCG TABLET PO (05:50)
[2023-07-09] MEDS: Dicyclomine HCl 10 MG CAPSULE PO ×2 (05:50→12:23)
[2023-07-09 07:38] VITALS: BP 121/59; PULSE 62; RESP 20; TEMP 36.4; O2SAT 98
[2023-07-09 07:48] LABS: Glucose, Whole Blood 80 mg/dL (60-115)
[2023-07-09] MEDS: Furosemide 40 MG TABLET 80 MG PO (07:48)
[2023-07-09] MEDS: Losartan Potassium 25 MG TABLET PO (07:49)
[2023-07-09] MEDS: Loratadine 10 MG TABLET PO (07:49)
[2023-07-09] MEDS: Pregabalin 75 MG CAPSULE 225 MG PO (07:49)
[2023-07-09] MEDS: carvediloL 6.25 MG TABLET PO (07:49)
[2023-07-09] MEDS: Magnesium Oxide 400 MG TABLET PO (07:49)
[2023-07-09] MEDS: Ferrous Sulfate 324 MG TABLET.DR PO (07:49)
[2023-07-09] MEDS: 0.9 % Sodium Chloride Flush 3 ML SYRINGE IVFLUSH (07:50)
[2023-07-09 07:54] VITALS: BP 135/61; PULSE 82; RESP 18; TEMP 36.4; O2SAT 95
[2023-07-09] MEDS: Fluticasone/Vilanterol 100/25 BLST.W.DEV 1 PUFF INHALE (07:57)
[2023-07-09 07:58] VITALS: PULSE 82; RESP 18; O2SAT 97
[2023-07-09 09:31] VITALS: BMI 52.4
[2023-07-09 11:04] LABS: Glucose, Whole Blood 123 mg/dL (60-115)
--- NOTE | 2023-07-09 11:07 | MHC.CM.PN ---
EMR REVIEWED. PER MD ROUNDS PATIENT IS MEDICALLY CLEARED FOR DC TO STR AT [facility]. BLS TRANSPORTATION SCHEDULED FOR 2PM. PATIENT, RN, AN D FACILITY AWARE. IMM DELIVERED.
--- NOTE | 2023-07-09 11:34 | PM.DS ---
DS: Providers Provider Date of Service: 07/09/23 Date of admission: 07/04/23 19:47 Primary care physician: Glory Herbert MD Consults: 07/04/23 16:42 Consult to Case Management Stat Comment: 07/05/23 10:18 Consult to General Surgery [place]ine Consulting [place] [facility] [facility] Reason for consultation: acute diverticulitis Has provider been notified: No 07/06/23 15:06 Consult to Wound Care Routine Reason for consultation: Reddened non barbara posterior thighs, open area R thigh and 2 OAs R pannus Has provider been notified: No DS: Diagnosis Discharge Diagnosis (1) Acute diverticulitis: Status: Resolved DS: Summary Hospital Course Hospital Course: admission HPI Chief Complaint: abd pain 72 year old female with history of ILD with chronic hypoexmic respiratory failure on 3 L supplemental O2 at baseline, GERD, hypertension, unspecified asthma, hypothyroidism, unspecified peripheral neuropathy, who is morbidly obese with BMI greater than 52 presented to the ED earlier today for evaluation of abdominal pain. She presented to the ED initially on 06/24 and then again in 06/28 due to complaints of right lower quadrant and left lower quadrant intermittent severe abdominal pain without radiation. She states the pain comes on randomly and is unable to identify any triggers or alleviating factors. States she has had at least 5+ episodes of watery diarrhea daily basis. No fevers or chills. No nausea, vomiting, melena, hematochezia. She was started on Augmentin initially with coarse repeated at subsequent ER visit. On review of chart, was also admitted last month for similar symptoms and diagnosed with mild diverticulitis after having failed outpatient therapy with Augmentin. On arrival, vital signs stable. There is no leukocytosis. Renal function baseline, electrolyte levels normal except for CO2 34 which is consistent with her baseline. Hepatic function within normal limits. Lipase 27. CT abdomen/pelvis shows mild colonic diverticulosis with circumferential mucosal thickening of the sigmoid colon again demonstrated which appears slightly more accentuated than imaging 9 days ago however this may be attributed to relatively decompressed status of the area. There is also some minimal adjacent pericolonic stranding adjacent to the proximal sigmoid colon which is again noted. Described as nonspecific findings possibly representing a very mild diverticulitis. In the ED, has been given 500 mg IV Flagyl, 1 g IV ceftriaxone, 1 L IV NS. She will be admitted for further management of diverticulitis having failed outpatient therapy. Patient also reports that her partner has been struggling to care for her at home and is concerned about returning home and is requesting evaluation for rehab. hospital course: Patient presented with abdominal pain and found to have acute diverticulitis on CT scan. She was admitted and treated with IV Zosyn with improvement over the course of hospitalization. Initially she was NPO and ultimately was started on a liquid diet has been advanced to presently regular diet which she is tolerating has no pain. She was evaluated by surgery with no indication for surgical intervention. Given that the patient is doing well with oral diet at this point and no pain will transition to oral antibiotics with Augmentin and Flagyl for an additional 3 days for a total of 7 days of antibiotics. High-fiber diet is recommended. Of note the patient has glucose intolerance, fasting sugar this morning 80. Hemoglobin A1c is 4.9 and therefore not diabetic. Weight loss is advised for morbid obesity with a BMI of 52. She is deconditioned and has been evaluated by Physical therapy with recommendation for short-term rehab which she is agreeable to. She will go to short-term rehab for less than 30 days. Time Attestation Discharge Coordination Time (in mins): 35 Quality: Safe Use of Opioids Does Pt have an Active Cancer Diagnosis on the Problem List?: No Quality: Stroke Does the patient have a stroke diagnosis?: No Physical Exam Vital Signs: Vital Signs: Last Vital Signs Temp 97.6 F 07/09/23 07:54 Pulse 82 07/09/23 07:58 Resp 18 07/09/23 07:58 BP 135/61 07/09/23 07:54 Pulse Ox 95 07/09/23 07:54 O2 Del Method Room Air 07/09/23 07:54 O2 Flow Rate 3 07/09/23 07:38 BMI result Body Mass Index 52.4 Const: Other: General: AO X 3, no acute distress Resp: CTA bilateral CVS: S1,S2,RRR GI: +BS, NT, no distention Skin: No rash Neuro: motor grossly intact Psych: appropriate affect DS: Data Data Completed and Pending Labs on day of discharge: Laboratory Results - last 24 hr 07/08/23 07/08/23 07/09/23 16:18 20:55 07:44 POC Glucose 103 141 H 80 07/09/23 11:00 POC Glucose 123 H Discharge Plan Discharge Anticipated Discharge Date/Time: 07/09/23 11:31 Patient Disposition: Xfer SNF Discharge Diagnosis: Acute diverticulitis Referrals: [facility] [Outside] - 1 Day (Short term rehab ) Glory Al MD [Primary Care Provider] - 1 Week Discharge Medications: New metronidazole 500 mg tablet 500 mg PO Q12H 3 Days Qty: 6 0RF tramadol 25 mg tablet 25 mg PO Q6H PRN (Reason: pain (scale score 7-10)) Qty: 10 0RF Continued atorvastatin 10 mg tablet 1 tab PO BEDTIME carvedilol 6.25 mg tablet 1 tab PO BIDWM cetirizine 10 mg tablet 1 tab PO DAILY magnesium oxide 400 mg (241.3 mg magnesium) tablet 1 tab PO DAILY levothyroxine 50 mcg tablet 1 tab PO DAILY@0600 ferrous sulfate 325 mg (65 mg iron) tablet 1 tab PO DAILY montelukast 10 mg tablet 1 tab PO BEDTIME pregabalin 225 mg capsule 1 cap PO BID furosemide 40 mg tablet 80 mg PO DAILY fluticasone propion-salmeterol [Advair Diskus] 250-50 mcg/dose blister with device 1 ea inhalation BID dicyclomine 10 mg capsule 10 mg PO TID PRN (Reason: Abdominal Pain) ondansetron HCl 4 mg tablet 4 mg PO Q8H PRN (Reason: Nausea) Citrucel 500 mg tablet 500 mg PO DAILY losartan 25 mg tablet 25 mg PO DAILY dexlansoprazole [Dexilant] 60 mg capsule,biphase delayed releas 60 mg PO DAILY@0630 Discharge Orders: Discharge Order (Routine); Ordered 07/09/23 Ordered By: Kevin Guerra Diet: Advance to usual diet Activity on Discharge: As tolerated Stand Alone Forms: Patient Portal Discharge page Print Language: Armenian Care Plan Goals: recovery from a ventriculitis and resumption of her normal function in Health Concerns: acute diverticulitis Plan of Treatment: take Augmentin and Flagyl as recommended and follow up with your primary care doctor within a week, call for appointment. To short-term rehab for less than 30 days for deconditioning Assessment: see above Discharge Date/Time: 07/09/23 14:40
== END 2023-07-09 14:40 | disposition skilled nursing facility (03) | DRG 392 ==
LOC: HO.ED 18:19 → HO.EDOVER 19:58 → HO.S3 07-06 09:21
PROVIDERS: Admitting Provider Physician Assistant; Emergency Provider Student in an Organized Health Care Education/Training Program; PCP Internal Medicine; Visit Provider Internal Medicine
DX: K57.32 Diverticulitis of large intestine without perforation or abscess without bleeding (principal); J96.11 Chronic respiratory failure with hypoxia; J96.12 Chronic respiratory failure with hypercapnia; Z68.43 Body mass index [BMI] 50.0-59.9, adult; J84.9 Interstitial pulmonary disease, unspecified; E74.39 Other disorders of intestinal carbohydrate absorption; G62.9 Polyneuropathy, unspecified; J45.909 Unspecified asthma, uncomplicated; Z71.3 Dietary counseling and surveillance; Z99.81 Dependence on supplemental oxygen; E03.9 Hypothyroidism, unspecified; E66.01 Morbid (severe) obesity due to excess calories; Z91.040 Latex allergy status; Z79.890 Hormone replacement therapy; Z79.899 Other long term (current) drug therapy
CPT/HCPCS: 36415; 74176; 80048; 80076; 82947; 83036; 83690; 85025; 85027; 85610; 94640; 97162; 97530; 99285; J0696; J1650; J1836; J2543

== ENCOUNTER → 2023-07-04 19:47 | Outpatient (BNV) | payer MEDICARE, MEDICAID, SELFPAY | PROVIDERS: Admitting Provider Physician Assistant; Emergency Provider Student in an Organized Health Care Education/Training Program; PCP Internal Medicine; Visit Provider Surgery | DX: K57.30 Diverticulosis of large intestine without perforation or abscess without bleeding (principal) | CPT/HCPCS: 99024; 99222; 99231; 99232 ==

== ENCOUNTER → 2023-07-04 19:47 | Outpatient (BNV) | payer MEDICARE, MEDICAID, SELFPAY | PROVIDERS: Admitting Provider Physician Assistant; Emergency Provider Student in an Organized Health Care Education/Training Program; PCP Internal Medicine; Visit Provider Physician Assistant | DX: K57.92 Diverticulitis of intestine, part unspecified, without perforation or abscess without bleeding (principal) | CPT/HCPCS: 99223; 99232; 99239 ==

== ENCOUNTER 2023-08-07 13:50 | Outpatient (AMB) | payer MEDICARE, MEDICAID, SELFPAY ==
[2023-08-07 14:02] VITALS: BP 110/68; PULSE 54; O2SAT 100; BMI 50.4
--- NOTE | 2023-08-07 14:02 | MHC.OFFVIS ---
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 Required: No Allergies celecoxib [From CELEBREX] Allergy (Unknown, Verified 08/07/23 14:22) RASH Latex, Natural Rubber Allergy (Unknown, Verified 08/07/23 14:22) Rash ibuprofen [IBUPROFEN] Adverse Reaction (Intermediate, Verified 08/07/23 14:22) RASH Medication List - Last Reconciled 08/07/23 by Quin Riley MD atorvastatin 1 tab PO BEDTIME carvedilol 1 tab PO BIDWM cetirizine 1 tab PO DAILY dexlansoprazole (Dexilant) 60 mg PO DAILY@0630 dicyclomine 10 mg PO TID PRN ferrous sulfate 1 tab PO DAILY fluticasone propion-salmeterol 250-50 mcg/dose (Advair Diskus) 1 ea inhalation BID furosemide 80 mg PO DAILY levothyroxine 1 tab PO DAILY@0600 losartan 25 mg PO DAILY magnesium oxide 1 tab PO DAILY methylcellulose (laxative) (Citrucel) 500 mg PO DAILY metronidazole 500 mg PO Q12H 3 days montelukast 1 tab PO BEDTIME ondansetron HCl 4 mg PO Q8H PRN pregabalin 1 cap PO BID tramadol 25 mg PO Q6H PRN Do you need a note to return to daycare/school/sports/work: No HPI HPI copd: Details: Jocelynn is 72 years old morbidly obese female, with impaired locomotion, she is homebound, Mostly in the chair and bed. Brought in for her 6 months follow-up by ambulance. Claims that she has been doing well in general, But lately she is having minimal degree of nosebleed from the right nostril off and on especially at night. She is not. On any anticoagulants Her breathing has remained very stable. She hardly needs to use any rescue inhaler. She uses O2 2.5 L at nighttime and during the day , most of the time especially when she goes outdoors. She does get about 6-7 hours sleep every night. [facility] Medical History IBS (irritable bowel syndrome) Respiratory failure Interstitial lung disease Seasonal allergies Diarrhea Neuropathy Asthma Hypercholesteremia GERD (gastroesophageal reflux disease) Thyroid activity decreased Hypertension Surgical History Hx of cataract surgery H/O: hysterectomy History of cholecystectomy Family History Mother Asthma Father No problems noted. 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 Housing: Apartment Housing Other:: [employer] Do you presently have visiting nurse or other home services: Yes (Home health aide M,Sun,Fri, few hours ; no RN involvement) Unable to assess alcohol history related to: Unknown Alcohol intake: never Patient Tobacco Use Status: Never used Tobacco e-Cigarette/Vaping Use: Never Used Second Hand Smoke Exposure: No service: No Current occupational status: retired Review of Systems Const All systems reviewed & are unremarkable except as noted in HPI and below Eyes Reports no additional complaints ENT Reports dysphagia (Not active at present, much improved.), Reports nasal congestion and Reports nasal discharge Card Denies chest pain, Denies irregular heart rhythm and Denies leg edema Resp Reports as per HPI GI Reports dysphagia (Not active at present, much improved.) Reports no additional complaints Musc Reports abnormal gait (UNSTEADY GAIT NEEDS TO USE THE WALKER) and Reports muscle weakness (WEAKNESS IN LOWER EXTREMITY) Skin/Breast Reports system reviewed and no additional complaints, except as documented Neuro Reports abnormal gait (UNSTEADY GAIT NEEDS TO USE THE WALKER) Psych Reports no additional complaints Physical Exam Vital Signs: Last Vital Signs Pulse 54 08/07/23 14:02 BP 110/68 08/07/23 14:02 Pulse Ox 100 08/07/23 14:02 Oxygen Delivery Method Nasal Cannula 08/07/23 14:02 Oxygen Flow Rate 2 08/07/23 14:02 BMI result Body Mass Index 50.4 Const General: comfortable, no acute distress, alert and awake Orientation/consciousness: patient oriented x3 HEENT Head: Yes normal to inspection General nose exam: No nasal polyps present and No nasal discharge present Face and sinus: Yes sinuses nontender Mouth: oropharynx normal Throat: Yes posterior oropharynx normal Eyes General: appearance normal, both eyes and all related structures Neck Neck: Yes normal visual inspection, Yes no lymphadenopathy, Yes trachea midline and Yes no JVD Thyroid: Thyroid normal Chest Chest palpation & inspection: normal inspection of the chest, normal palpation of entire chest wall and no tenderness Resp Other: Percussion note resonant, breath sounds are distant especially decreased over the basilar areas. No audible wheezes rhonchi or crepitations. Cardio Palpation: normal PMI Rate: regular rate Rhythm: regular rhythm Heart sounds: no gallops and no murmurs GI Palpation (GI): Soft to palpation, nontender, No hepatosplenomegaly present, no masses and Other GI palpation findings present (Abdomen is grossly obese and somewhat pendulous) Auscultation: normal bowel sounds Back/Spine/Pelvis Thoracic/Lumbar Spine: thoracic and lumbar spine normal to inspection and thoraco-lumbar ROM limited Skin General skin exam: no rashes or lesions noted Neuro General: patient oriented x3, No gait normal (Gait is markedly impaired, she uses walker) and no focal motor deficits Cranial nerves: Yes CN's II-XII intact bilaterally Extrem General: Yes normal to inspection, Yes no clubbing, cyanosis or edema and Yes no calf tenderness Psych Appearance: grossly normal and well kempt Speech and movement: Normal speech and movement present Assessment & Plan Assessment & Plan (1) Morbid obesity: Comment: THIS IS A CHRONIC PROBLEM, SHE IS TRYING TO LIMIT HER CALORIES INTAKE, CANNOT DO MUCH EXERCISE. NOT MUCH POTENTIAL FOR ANY SIGNIFICANT WEIGHT LOSS. Code(s): E66.01 - Morbid (severe) obesity due to excess calories Category: Medical Plan: Watch the diet, but there is not much potential for her to lose weight. (2) Interstitial lung disease: Comment: SHE HAD ACUTE INTERSTITIAL LUNG DISEASE, FOLLOWING COVID INFECTION. LAST CHEST X-RAY IN NOVEMBER 2020, SHOWED THAT ALL INTERSTITIAL LUNG DISEASE HAD RESOLVED. She is a candidate for severe restrictive pulmonary disorder due to her morbid obesity. Advised to keep on doing deep breathing exercises. 3 to 4 times a day Code(s): J84.9 - Interstitial pulmonary disease, unspecified Category: Medical Plan: as above (3) Obesity hypoventilation syndrome: Comment: PATIENT HAS CHRONIC SLEEP APNEA/HYPOVENTILATION SYNDROME. UNFORTUNATELY UNABLE TO USE THE CPAP OR BIPAP. Code(s): E66.2 - Morbid (severe) obesity with alveolar hypoventilation Category: Medical Plan: ADVISED TO DO DEEP BREATHING EXERCISES 3 TIMES A DAY REGULARLY, HAS INCENTIVE SPIROMETER AT HOME . KEEP ON USING O2 2.5 L PER MINUTE AT REST AND 3 L/MT WHEN OUTDOORS. (4) Respiratory failure: Comment: PATIENT HAS CHRONIC HYPOXEMIC AND HYPERCAPNIC RESPIRATORY FAILURE. MAINLY SECONDARY TO MORBID OBESITY, RESTRICTIVE LUNG DISEASE AND UN-TREATED SLEEP APNEA. Code(s): J96.90 - Respiratory failure, unspecified, unspecified whether with hypoxia or hypercapnia Category: Medical Plan: TX : CANNOT USE CPAP OR BIPAP. CONTINUE OXYGEN 2.5 L/MINUTE AT NIGHT AND MAY USE 3 L/MINUTE WITH PORTABLE UNIT. (5) Asthma: Comment: IN ADDITION TO ALL HER ABOVE-NOTED PROBLEMS, SHE ALSO HAS BRONCHIAL ASTHMA/MILD RESTRICTIVE PULMONARY DISORDER. Code(s): J45.909 - Unspecified asthma, uncomplicated Category: Medical Plan: SHE IS ADVISED TO CONTINUE DOING DEEP BREATHING EXERCISES. CONTINUE TO USE MONTELUKAST 10 MG DAILY. CONTINUE TO USE ADVAIR 250-50 1 PUFF B.I.D. Coding Level of Care Code Est Pt Level 4 (98448) Diagnoses Morbid obesity E66.01 Interstitial lung disease J84.9 Obesity hypoventilation syndrome E66.2 Respiratory failure J96.90 Asthma J45.909
== END 2023-08-07 14:21 | disposition home or self-care (01) ==
PROVIDERS: PCP Internal Medicine; Visit Provider Internal Medicine
DX: J45.909 Unspecified asthma, uncomplicated (principal); J84.9 Interstitial pulmonary disease, unspecified; J96.90 Respiratory failure, unspecified, unspecified whether with hypoxia or hypercapnia; E66.2 Morbid (severe) obesity with alveolar hypoventilation
CPT/HCPCS: 99214

== ENCOUNTER → 2023-08-07 13:50 | Outpatient (BNVA) | payer MEDICARE, MEDICAID, SELFPAY | PROVIDERS: PCP Internal Medicine; Visit Provider Internal Medicine | DX: J84.9 Interstitial pulmonary disease, unspecified (principal); J96.90 Respiratory failure, unspecified, unspecified whether with hypoxia or hypercapnia; J45.909 Unspecified asthma, uncomplicated; E66.2 Morbid (severe) obesity with alveolar hypoventilation; Z68.43 Body mass index [BMI] 50.0-59.9, adult | CPT/HCPCS: 99212 ==

== ENCOUNTER 2023-12-06 13:56 | Outpatient (AMB) | payer MEDICARE, MEDICAID, SELFPAY ==
--- NOTE | 2023-12-06 14:06 | A.OFFVIS_ITS ---
Vital Signs 12/06/23 14:07 Height 5 ft 5 in BP 110/62 Blood Pressure Location Lt radial Position Sitting Pulse 60 Pulse Source Pulse Oximeter Pulse Oximetry (%) 100 Oxygen Delivery Method Nasal Cannula Oxygen Flow Rate 4 Intake Visit Reasons: copd Intake Note: pt is here for follow up and is coughing with phelgm greeen in color which has been happeing for a while, she feels like she is filling up with fluid and also feels she is retaining fluid in the ankles. 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: No Allergies celecoxib [From CELEBREX] Allergy (Unknown, Verified 12/06/23 14:27) RASH Latex, Natural Rubber Allergy (Unknown, Verified 12/06/23 14:27) Rash ibuprofen [IBUPROFEN] Adverse Reaction (Intermediate, Verified 12/06/23 14:27) RASH Medication List - Last Reconciled 12/06/23 by Quin Riley MD atorvastatin 1 tab PO BEDTIME carvedilol 1 tab PO BIDWM cetirizine 1 tab PO DAILY dexlansoprazole (Dexilant) 60 mg PO DAILY@0630 dicyclomine 10 mg PO TID PRN ferrous sulfate 1 tab PO DAILY fluticasone propion-salmeterol 250-50 mcg/dose (Advair Diskus) 1 ea inhalation BID furosemide 80 mg PO DAILY levothyroxine 1 tab PO DAILY@0600 losartan 25 mg PO DAILY magnesium oxide 1 tab PO DAILY methylcellulose (laxative) (Citrucel) 500 mg PO DAILY montelukast 1 tab PO BEDTIME ondansetron HCl 4 mg PO Q8H PRN pregabalin 1 cap PO BID tramadol 25 mg PO Q6H PRN Do you need a note to return to daycare/school/sports/work: No HPI HPI copd: Details: Jocelynn is 73 years old female with super morbid obesity, impaired locomotion, brought into the office on a stretcher, as she can not walk and can not use a wheelchair. At home she does sit up and walk around, just in the apartment. She has chronic hypoventilation syndrome , and also obstructive sleep apnea, but she has not been able to use ventilatory support system. She uses oxygen 2.5 L/minute at night, and p.r.n. during the daytime. She remains very alert, . Denies any distress. Now for the past few weeks she is having some cough with greenish phlegm, but she has no fever or chills. She has no chest pain, has not required increase in the oxygen supplementation. She has stopped using the inhalers, even does not use any Advair. She does not even have a rescue inhaler at home. When I mentioned about having a nebulizer at home she say is no, I do not needed Asked about using Advair and she again say is, no I do not need to use it because it does not help. I inquired about if she has any rescue inhaler and she say is no, and does not want me to order it for her. [facility] Medical History IBS (irritable bowel syndrome) Respiratory failure Interstitial lung disease Seasonal allergies Diarrhea Neuropathy Asthma Hypercholesteremia GERD (gastroesophageal reflux disease) Thyroid activity decreased Hypertension Surgical History Hx of cataract surgery H/O: hysterectomy History of cholecystectomy Family History Mother Asthma Father No problems noted. 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 Housing: Apartment Housing Other:: [employer] Do you presently have visiting nurse or other home services: Yes (Home health aide M,Sun,Fri, few hours ; no RN involvement) Unable to assess alcohol history related to: Unknown Alcohol intake: never Patient Tobacco Use Status: Never used Tobacco e-Cigarette/Vaping Use: Never Used Second Hand Smoke Exposure: No service: No Current occupational status: retired Review of Systems Const All systems reviewed & are unremarkable except as noted in HPI and below Eyes Reports no additional complaints ENT Reports dysphagia (Not active at present, much improved.), Reports nasal congestion and Reports nasal discharge Card Denies chest pain, Denies irregular heart rhythm and Denies leg edema Resp Reports as per HPI GI Reports dysphagia (Not active at present, much improved.) Reports no additional complaints Musc Reports abnormal gait (UNSTEADY GAIT NEEDS TO USE THE WALKER) and Reports muscle weakness (WEAKNESS IN LOWER EXTREMITY) Skin/Breast Reports system reviewed and no additional complaints, except as documented Neuro Reports abnormal gait (UNSTEADY GAIT NEEDS TO USE THE WALKER) Psych Reports no additional complaints Physical Exam Vital Signs: Last Vital Signs Pulse 60 12/06/23 14:07 BP 110/62 12/06/23 14:07 Pulse Ox 100 12/06/23 14:07 Oxygen Delivery Method Nasal Cannula 12/06/23 14:07 Oxygen Flow Rate 4 12/06/23 14:07 Const General: comfortable, no acute distress, alert and awake Orientation/consciousness: patient oriented x3 HEENT Other: NOSE AND THROAT ARE VERY CLEAR AND THERE IS NO EXTRA MUCUS . NO ERYTHEMA OF THE MUCOSA Head: Yes normal to inspection General nose exam: No nasal polyps present and No nasal discharge present Face and sinus: Yes sinuses nontender Mouth: oropharynx normal Throat: Yes posterior oropharynx normal Eyes General: appearance normal, both eyes and all related structures Neck Neck: Yes normal visual inspection, Yes no lymphadenopathy, Yes trachea midline and Yes no JVD Thyroid: Thyroid normal Chest Chest palpation & inspection: normal inspection of the chest, normal palpation of entire chest wall and no tenderness Resp Other: Percussion note resonant, breath sounds are distant especially decreased over the basilar areas. No audible wheezes rhonchi or crepitations. Cardio Palpation: normal PMI Rate: regular rate Rhythm: regular rhythm Heart sounds: no gallops and no murmurs GI Palpation (GI): Soft to palpation, nontender, No hepatosplenomegaly present, no masses and Other GI palpation findings present (Abdomen is grossly obese and somewhat pendulous) Auscultation: normal bowel sounds Back/Spine/Pelvis Thoracic/Lumbar Spine: thoracic and lumbar spine normal to inspection and thoraco-lumbar ROM limited Skin General skin exam: no rashes or lesions noted Neuro General: patient oriented x3, No gait normal (Gait is markedly impaired, she uses walker) and no focal motor deficits Cranial nerves: Yes CN's II-XII intact bilaterally Extrem Other: THE LEGS ARE VERY BULKY BUT THERE IS NO PITTING EDEMA REDNESS OR ULCERATION General: Yes normal to inspection, Yes no clubbing, cyanosis or edema and Yes no calf tenderness Psych Appearance: grossly normal and well kempt Speech and movement: Normal speech and movement present Assessment & Plan Assessment & Plan (1) Morbid obesity: Comment: THIS IS A CHRONIC PROBLEM, SHE IS TRYING TO LIMIT HER CALORIES INTAKE, CANNOT DO MUCH EXERCISE. NOT MUCH POTENTIAL FOR ANY SIGNIFICANT WEIGHT LOSS. Code(s): E66.01 - Morbid (severe) obesity due to excess calories Category: Medical Plan: I DO NOT THINK THERE IS ANY POTENTIAL FOR HER TO LOSE WEIGHT. SHE IS TRYING TO LIMIT CALORIES INTAKE, ON HER OWN. (2) Obesity hypoventilation syndrome: Comment: PATIENT HAS CHRONIC SLEEP APNEA/HYPOVENTILATION SYNDROME. UNFORTUNATELY UNABLE TO USE THE CPAP OR BIPAP. Code(s): E66.2 - Morbid (severe) obesity with alveolar hypoventilation Category: Medical Plan: CONTINUE USING O2 2.5 L/MINUTE AT NIGHT. AND P.R.N. DURING THE DAYTIME IF SHE DEVELOPS ANY DYSPNEA OR DISTRESS. AVOID USING O2 EXCESSIVELY. (3) Obstructive sleep apnea: Comment: HAS CHRONIC OBSTRUCTIVE SLEEP APNEA AT LEAST FOR 15 YEARS. SHE IS JUST NOT ABLE TO USE THE CPAP. SO SHE IS JUST USING OXYGEN 2.5 L/MINUTE AT NIGHTTIME, WELL DURING THE DAYTIME. Code(s): G47.33 - Obstructive sleep apnea (adult) (pediatric) Category: Medical Plan: USE O2 2.5 L/MINUTE AT NIGHT (4) Respiratory failure: Comment: PATIENT HAS CHRONIC HYPOXEMIC AND HYPERCAPNIC RESPIRATORY FAILURE. MAINLY SECONDARY TO MORBID OBESITY, RESTRICTIVE LUNG DISEASE AND UN-TREATED SLEEP APNEA. Code(s): J96.90 - Respiratory failure, unspecified, unspecified whether with hypoxia or hypercapnia Category: Medical Plan: ADVISED TO DO DEEP BREATHING EXERCISES WITH INCENTIVE SPIROMETRY DEVICE 3 TIMES A DAY, AND MORE OFTEN IF POSSIBLE. (5) Recurrent aspiration events: Comment: PATIENT IS VERY CAREFUL, CURRENTLY ON PUREED FOODS, AND IS DOING WELL. SHE HAS HAD NO RECENT PROBLEM WITH SWALLOWING OR ASPIRATION. SHE IS BEING FOLLOWED BY SPEECH THERAPIST AT HOME. Category: Medical Plan: DISCUSSED ABOUT ASPIRATION PRECAUTIONS AND ALSO ADVISED TO CONTINUE WORKING WITH THE SPEECH THERAPIST. Coding Level of Care Code Est Pt Level 3 (76014) Diagnoses Morbid obesity E66.01 Obesity hypoventilation syndrome E66.2 Obstructive sleep apnea G47.33 Respiratory failure J96.90 Recurrent aspiration events
[2023-12-06 14:07] VITALS: BP 110/62; PULSE 60; O2SAT 100
== END 2023-12-06 14:38 | disposition home or self-care (01) ==
PROVIDERS: PCP Internal Medicine; Visit Provider Internal Medicine
DX: E66.01 Morbid (severe) obesity due to excess calories (principal); E66.2 Morbid (severe) obesity with alveolar hypoventilation; G47.33 Obstructive sleep apnea (adult) (pediatric); J96.90 Respiratory failure, unspecified, unspecified whether with hypoxia or hypercapnia
CPT/HCPCS: 99213

== ENCOUNTER → 2023-12-06 13:56 | Outpatient (BNVA) | payer MEDICARE, MEDICAID, SELFPAY | PROVIDERS: PCP Internal Medicine; Visit Provider Internal Medicine | DX: E66.2 Morbid (severe) obesity with alveolar hypoventilation (principal); G47.33 Obstructive sleep apnea (adult) (pediatric); J96.90 Respiratory failure, unspecified, unspecified whether with hypoxia or hypercapnia | CPT/HCPCS: 99212 ==

== ENCOUNTER 2024-02-17 16:07 | Emergency (ER) | payer MEDICARE, MEDICAID, SELFPAY ==
--- NOTE | ~2024-02-17 | CT_ITS ---
EXAMINATION: CT ABDOMEN AND PELVIS WITH CONTRAST CLINICAL INFORMATION: Right lower quadrant pain. COMPARISON: CT abdomen and pelvis without IV contrast 07/04/2023 TECHNIQUE: Multidetector volumetric images were obtained from the superior aspect of the liver through the pubic symphysis following administration 85 mL of Omnipaque 350 intravenous contrast. Sagittal and coronal reformatted images were obtained on the technologist's workstation. Oral contrast: No This CT examination was performed using dose optimization techniques as appropriate, variously including the following: *Automated exposure control *Adjustment of mA and/or kV according to patient size (this includes techniques or standardized protocols for targeted exams where dose is matched to indication/reason for exam; i.e. extremities or head) *Use of iterative reconstruction technique DLP: 1884 mGy-cm FINDINGS: LUNG BASES: The lung bases are clear. A moderate size hiatal hernia. Heart size is normal. LIVER, GALLBLADDER, AND BILIARY TREE: The liver is normal in size, shape, and attenuation. No focal hepatic lesion or biliary ductal dilatation is present. The gallbladder has been surgically removed. PANCREAS: Unremarkable. SPLEEN: Unremarkable. ADRENAL GLANDS: Unremarkable. KIDNEYS AND URETERS: The kidneys are normal in size, shape, and attenuation. No hydronephrosis, hydroureter, or calculi seen. No perinephric stranding. BLADDER: Unremarkable. GASTROINTESTINAL TRACT: There is scattered stool, diverticuli and gas seen in colon without distention. The appendix appears normal caliber. The small bowel loops are normal caliber. No inflammatory process, free air or free fluid seen especially right lower quadrant. ABDOMINAL WALL: Tiny umbilical hernia containing fat LYMPH NODES: Normal. VASCULAR: Unremarkable. PELVIC VISCERA: There is a small pessary seen in the pelvis OSSEOUS STRUCTURES: No aggressive lytic or sclerotic process seen. There is mild degenerative disc changes and spondylosis throughout lumbar spine. Moderate degenerative changes with subchondral cyst and spurring left hip. CT/CT abdomen pelvis w IV con IMPRESSION: No acute intra-abdominal process seen. Scattered colonic diverticulosis without diverticulitis. Normal appendix Fleischner guidelines were followed. Electronically signed by: Aaron Garza MD 02/17/2024 10:02 PM [facility] [place]
[2024-02-17 16:12] VITALS: BP 130/78; PULSE 63; O2SAT 96; BMI 58.8
[2024-02-17 16:18] VITALS: BP 139/57; PULSE 66; RESP 16; TEMP 36.6; O2SAT 100
[2024-02-17 16:30] LABS: MANUAL DIFF FLAG NO
--- NOTE | 2024-02-17 16:30 | PC.NURSE ---
biba from home d/t generalized lower abd pain - sharp in nature. pt reports sx began this am - denies aggravating factors. reports nausea - denies any episodes of vomiting/diarrhea/fever/chills/urinary sx. hx cholecystectomy/diverticulitis/COPD - 3L via NC baseline. upon ED arrival - a&ox4. vss and up to date. nsr on the brim plater. on 3L via NC (baseline) - pt able to speak in full/clear sentences w/o difficulty. no sob/wob noted. respirations even/unlabored. 20gIV placed in the right AC - labs obtained/sent to lab. UA ordered - pt aware urine sample is needed. plan of care ongoing. call alfaro placed within reach.
[2024-02-17 16:32] LABS: Basophils Absolute Auto 0.1 X10*3/uL (0.0-0.2); Basophils Percent Auto 0.7 % (0-2); Eosinophils Absolute Auto 0.3 X10*3/uL (0.0-0.4); Eosinophils Percent Auto 3.4 % (0-4); Hematocrit 36.6 % (37.0-47.0); Hemoglobin 12.3 g/dl (12.0-16.0); Imm Gran Abs Auto 0.02 X10*3/uL (0.00-0.03); Imm Gran Pct Auto 0.2 % (0.0-0.4); Lymphocytes Absolute Auto 1.8 X10*3/uL (1.2-4.9); Mean Corpuscular HGB Conc 33.6 g/dl (31.0-35.0); Mean Corpuscular Hemoglobin 29.7 pg (27.0-33.0); Mean Corpuscular Volume 88.4 fL (80.0-98.0); Mean Platelet Volume 10.6 fL (9.4-12.3); Monocytes Absolute Auto 0.6 X10*3/uL (0.1-1.2); Monocytes Percent Auto 7.3 % (2-11); Neutrophils Absolute Auto 5.5 x10*3/uL (2.0-8.3); Neutrophils Percent Auto 66.4 % (45-73); Platelet Count 248 X10*3/uL (160-400); Red Blood Count 4.14 X10*6/uL (4.20-5.50); Red Cell Distribution Width 13.6 % (11.0-16.0); White Blood Count 8.2 X10*3/uL (4.8-10.8)
[2024-02-17 16:49] LABS: Alanine Aminotransferase 9 U/L (0-31); Albumin Level 3.9 g/dL (3.5-5.0); Alkaline Phosphatase 83 U/L (39-117); Anion Gap 17 (12-20); Aspartate Amino Transferase 25 U/L (5-31); Bilirubin Total 0.9 mg/dL (0.0-1.0); Blood Urea Nitrogen 23 mg/dL (9-16); Calcium 9.1 mg/dL (8.4-10.2); Carbon Dioxide 30 mmol/L (22-29); Chloride 100 mmol/L (96-108); Creatinine Clr Calc Pharmacy 61.5; Estimated Glomerular Filt Rate 46; Glucose Random 91 mg/dL (60-115); Lipase 26 U/L (8-78); Magnesium 2.2 mg/dL (1.6-2.6); Potassium 4.4 mmol/L (3.3-5.1); Sodium 143 mmol/L (135-145); Total Protein 7.4 g/dL (6.5-8.0)
[2024-02-17 17:08] LABS: Influenza A PCR NEGATIVE (Negative); Influenza B PCR NEGATIVE (Negative); Resp Syncy Virus RNA Qual PCR NEGATIVE (Negative); SARS COV2 PCR INHOUSE NEGATIVE (Negative)
[2024-02-17 17:35] LABS: Appearance Urine Clear; Color Urine Yellow; Glucose Urine UA Negative (Negative); Leukocyte Esterase Urine Negative (Negative); Nitrite Urine Negative (Negative); Urine Blood Negative (Negative); Urine Ketones Negative (Negative); Urine Protein Negative (Neg-Trace)
--- NOTE | 2024-02-17 17:35 | PC.NURSE ---
1:1 assist to the commode. tech assisted pt in obtaining urine sample and sending to lab. plan of care ongoing.
[2024-02-17 17:40] LABS: Bacteria Urine Trace (None Seen); Hyaline Casts Urine 0-2 /LPF (0-2); RBC Urine 0-2 /HPF (0-2); WBC Urine 0-5 /HPF (0-5)
[2024-02-17 18:38] VITALS: BP 131/51; PULSE 60; RESP 10; O2SAT 100
--- NOTE | 2024-02-17 19:03 | PC.NURSE ---
report received from Sofiya SAMUEL, assume care of pt at this time
--- NOTE | 2024-02-17 20:38 | ED_ITS ---
HPI - General Adult General Chief complaint: Abdominal Pain Stated complaint: abd pain Time Seen by Provider: 02/17/24 20:07 Source: patient, RN notes reviewed and old records reviewed Mode of arrival: EMS Limitations: no limitations History of Present Illness ED Provider: Jarvis VAUGHAN narrative: 73-year-old female with past medical history significant for interstitial lung disease on chronic 3 L, GERD, hypertension, asthma, hypothyroidism, neuropathy, morbid obesity presents for evaluation of abdominal pain. Patient reports that she has had abdominal pain starting earlier today. Her pain is very low in the right lower abdomen. She reports no associated nausea vomiting, diarrhea or constipation. She denies any black or bloody stool Denies any fevers, chills She reports a history of a total hysterectomy, cholecystectomy, she is unsure if she ever had an appendectomy Patient's pain is 6/10, stabbing She does reports her pain waxes and wanes Denies any urinary complaints Related Data Home Medications ?Medication ?Instructions ?Recorded ?Confirmed carvedilol 6.25 mg tablet 1 tab PO BIDWM 03/13/21 07/04/23 cetirizine 10 mg tablet 1 tab PO DAILY 03/13/21 07/04/23 ferrous sulfate 325 mg (65 mg 1 tab PO DAILY 03/13/21 07/04/23 iron) tablet levothyroxine 50 mcg tablet 1 tab PO DAILY@0600 03/13/21 07/04/23 magnesium oxide 400 mg (241.3 mg 1 tab PO DAILY 03/13/21 07/04/23 magnesium) tablet montelukast 10 mg tablet 1 tab PO BEDTIME 03/13/21 07/04/23 pregabalin 225 mg capsule 1 cap PO BID 03/13/21 07/04/23 atorvastatin 10 mg tablet 1 tab PO BEDTIME 03/14/21 07/04/23 dexlansoprazole 60 mg 60 mg PO DAILY@0630 06/07/21 07/04/23 capsule,biphase delayed release (Dexilant) losartan 25 mg tablet 25 mg PO DAILY 06/07/21 07/04/23 furosemide 40 mg tablet 80 mg PO DAILY 10/02/22 07/04/23 dicyclomine 10 mg capsule 10 mg PO TID PRN Abdominal Pain 06/02/23 07/04/23 fluticasone 250 mcg-salmeterol 50 1 ea inhalation BID 06/02/23 07/04/23 mcg/dose blistr powdr for inhalation (Advair Diskus) methylcellulose (laxative) 500 mg 500 mg PO DAILY 07/04/23 07/04/23 tablet (Citrucel) ondansetron HCl 4 mg tablet 4 mg PO Q8H PRN Nausea 07/04/23 07/04/23 Previous Rx's ?Medication ?Instructions ?Recorded tramadol 25 mg tablet 25 mg PO Q6H PRN pain (scale score 07/09/23 7-10) #10 tabs azithromycin 250 mg tablet See Rx Instructions PO .COMPLEX #6 02/17/24 tabs Allergies Allergy/AdvReac Type Severity Reaction Status Date / Time celecoxib [From CELEBREX] Allergy Unknown RASH Verified 02/17/24 16:15 Latex, Natural Rubber Allergy Unknown Rash Verified 02/17/24 16:15 ibuprofen [IBUPROFEN] AdvReac Intermediate RASH Verified 02/17/24 16:15 Review of Systems 2 Constitutional: Constitutional: Denies body ache(s), Denies chills, Denies frequent falls and Denies headache(s) Eyes: Eyes: Denies blurry vision ENT: Denies vertigo, Denies dizziness and Denies headache(s) Cardiovascular: Cardiovascular: Denies chest pain and Denies dyspnea Respiratory: Respiratory: Denies cough and Denies dyspnea Gastrointestinal: Gastrointestinal: Reports abdominal pain, Denies nausea and Denies vomiting Genitourinary: Genitourinary: Denies difficulty voiding and Denies dysuria Musculoskeletal: Musculoskeletal: Denies back pain Integumentary/Breasts: Skin/Breast: Denies rash Neurologic: Denies vertigo, Denies dizziness, Denies frequent falls and Denies headache(s) Psychiatric: Psychiatric: Denies anxiety [facility] Past Medical History Medical History IBS (irritable bowel syndrome) Respiratory failure Interstitial lung disease Seasonal allergies Diarrhea Neuropathy Asthma Hypercholesteremia GERD (gastroesophageal reflux disease) Thyroid activity decreased Hypertension Surgical History Hx of cataract surgery H/O: hysterectomy History of cholecystectomy Family History Family History Mother Asthma Father No problems noted. 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 Housing: Apartment Housing Other:: [employer] Do you presently have visiting nurse or other home services: Yes (Home health aide M,Wed,Fri, few hours ; no RN involvement) Unable to assess alcohol history related to: Unknown Alcohol intake: never Patient Tobacco Use Status: Never used Tobacco Smoked in Last 30 Days: No e-Cigarette/Vaping Use: Never Used Second Hand Smoke Exposure: No Use of substances other than those prescribed or required for medical reasons: No Advance Directives: Yes Advance Directives on File: Yes Advance Directives Date on File: 07/05/23 Do you have a plan to hurt others: No Plan service: No Current occupational status: retired Physical Exam ED Vital Signs: Vital Signs - 24 hr 02/17/24 16:18 02/17/24 18:38 02/17/24 21:02 Temperature 97.9 F 97.6 F Pulse Rate 66 60 54 Respiratory Rate 16 10 L 18 Blood Pressure 139/57 L 131/51 L 140/53 H Pulse Oximetry 100 100 99 Oxygen Delivery Method Room Air Nasal Cannula Nasal Cannula Oxygen Flow Rate 3 BMI result Body Mass Index 58.8 Const General: comfortable, no acute distress, alert and awake Nutritional Appearance: well nourished Orientation/consciousness: patient oriented x3 HENMT Head: Yes normocephalic and Yes atraumatic Eyes Eyelids: Yes eyelids normal Conjunctivae: conjunctivae normal Sclerae: sclerae normal Corneas: corneas normal Pupils: Equal, round and reactive pupils present EOM: EOMs intact bilaterally Neck Neck: Yes full ROM Resp Effort & Inspection: normal respiratory effort, able to speak in complete sentences and not labored Cardio Rate: regular rate Rhythm: regular rhythm GI Inspection: No distended Palpation (GI): Soft to palpation, not firm, Tenderness to palpation present (GI) in the RLQ and suprapubicly; not in the LLQ, not in the LUQ and not in the RUQ, no guarding and not rigid Skin General skin exam: elasticity normal Neuro General: patient oriented x3 Cranial nerves: Yes Equal, round and reactive pupils present and Yes Bilaterally intact EOM present Cognition (Neuro): normal cognition Extrem Other: Moving all extremities well without any obvious deformities Course Reevaluation(s) Reevaluation #1: Patient's CT scan shows obstipation but no other acute findings. She was requesting something for ?congestion and green sputum. ? She is on chronic oxygen for COPD, her oxygen saturations 100% on her baseline O2. She reports her symptoms have been persistent for several weeks, we will treat azithromycin that would cover sinusitis as well as COPD exacerbation Time: 22:22 Medications Administered Discontinued Medications Generic Name Dose Route Start Last Admin Trade Name Freq PRN Reason Stop Dose Admin Iohexol 100 ml 02/17/24 21:13 02/17/24 21:16 Iohexol 350 Mg/Ml 100 Ml Infus..Btl IV 02/17/24 21:14 100 ml ONCE ONE Administration Medical Decision Making Medical Decision Making [facility] Narrative: 73-year-old female with past medical history as documented above presents for evaluation abdominal pain that started today. She denies any associated symptoms. She has a history of diverticulitis, she is unsure if she ever had an appendectomy. The patient had total hysterectomy, therefore pelvic pathology is not likely. She is quite tender, plan for CT scan of the abdomen pelvis to better evaluate. Urinalysis is clear, no evidence of UTI or hematuria so obstructive uropathy is also less likely Differential Diagnosis Differential Diagnoses: The differential diagnosis associated with the presentation includes Diverticulitis Acute appendicitis Constipation Obstructive uropathy Lab Data [facility] Lab Attestation statement: I reviewed the patient's lab results. No leukocytosis or significant anemia. Normal platelet count. No electrolyte abnormalities. Patient is on chronic oxygen, this explains her hypercapnia that is mild with a CO2 of 30. BUN is slightly elevated at 23 with a normal creatinine of 1.17. The patient is not a diabetic and her random glucose is 91 02/17/24 16:25 02/17/24 16:25 Labs: Lab Results 02/17/24 02/17/24 Range/Units 16:25 17:27 WBC 8.2 (4.8-10.8) X10*3/uL RBC 4.14 L (4.20-5.50) X10*6/uL Hgb 12.3 (12.0-16.0) g/dl Hct 36.6 L (37.0-47.0) % MCV 88.4 (80.0-98.0) fL MCH 29.7 (27.0-33.0) pg MCHC 33.6 (31.0-35.0) g/dl RDW 13.6 (11.0-16.0) % Plt Count 248 (160-400) X10*3/uL MPV 10.6 (9.4-12.3) fL Immature Gran % (Auto) 0.2 (0.0-0.4) % Neut % (Auto) 66.4 (45-73) % Lymph % (Auto) 22.0 (20-40) % Republic % (Auto) 7.3 (2-11) % Eos % (Auto) 3.4 (0-4) % Baso % (Auto) 0.7 (0-2) % Lymph # (Auto) 1.8 (1.2-4.9) X10*3/uL Republic # (Auto) 0.6 (0.1-1.2) X10*3/uL Eos # (Auto) 0.3 (0.0-0.4) X10*3/uL Baso # (Auto) 0.1 (0.0-0.2) X10*3/uL Abs Immat Gran (auto) 0.02 (0.00-0.03) X10*3/uL Absolute Neuts (auto) 5.5 (2.0-8.3) x10*3/uL Absolute Nucleated RBC 0.000 (0.0-0.012) X10*3/uL Nucleated RBC % (auto) 0.0 (0.0-0.2) /100WBC Sodium 143 (135-145) mmol/L Potassium 4.4 D (3.3-5.1) mmol/L Chloride 100 (96-108) mmol/L Carbon Dioxide 30 H (22-29) mmol/L Anion Gap 17 (12-20) BUN 23 H (9-16) mg/dL Creatinine 1.17 (0.5-1.4) mg/dL Estim Creat Clear Calc 61.5 Estimated GFR 46 Random Glucose 91 (60-115) mg/dL Calcium 9.1 D (8.4-10.2) mg/dL Magnesium 2.2 (1.6-2.6) mg/dL Total Bilirubin 0.9 (0.0-1.0) mg/dL AST 25 (5-31) U/L ALT 9 (0-31) U/L Alkaline Phosphatase 83 (39-117) U/L Total Protein 7.4 (6.5-8.0) g/dL Albumin 3.9 (3.5-5.0) g/dL Lipase 26 (8-78) U/L Urine Color Yellow Urine Appearance Clear Urine pH 7.0 (5.0-9.0) Ur Specific Beason 1.010 (1.005-1.025) Urine Protein Negative (Neg-Trace) mg/dL Urine Glucose (UA) Negative (Negative) mg/dL Urine Ketones Negative (Negative) mg/dL Urine Blood Negative (Negative) Urine Nitrite Negative (Negative) Ur Leukocyte Esterase Negative (Negative) Urine RBC 0-2 (0-2) /HPF Urine WBC 0-5 (0-5) /HPF Ur Squamous Epith Cells 3-5 (0-2) /HPF Urine Bacteria Trace (None Seen) Hyaline Casts 0-2 (0-2) /LPF Influenza Type A (PCR) NEGATIVE (Negative) Influenza Type B (PCR) NEGATIVE (Negative) RSV RNA Qual (PCR) NEGATIVE (Negative) SARS-CoV-2 RNA (RT-PCR) NEGATIVE (Negative) Radiology Impression Discussion of test interpretation with radiology: I have reviewed the radiologist's reading. Radiologist Impression: FINDINGS: LUNG BASES: The lung bases are clear. A moderate size hiatal hernia. Heart size is normal. LIVER, GALLBLADDER, AND BILIARY TREE: The liver is normal in size, shape, and attenuation. No focal hepatic lesion or biliary ductal dilatation is present. The gallbladder has been surgically removed. PANCREAS: Unremarkable. SPLEEN: Unremarkable. ADRENAL GLANDS: Unremarkable. KIDNEYS AND URETERS: The kidneys are normal in size, shape, and attenuation. No hydronephrosis, hydroureter, or calculi seen. No perinephric stranding. BLADDER: Unremarkable. GASTROINTESTINAL TRACT: There is scattered stool, diverticuli and gas seen in colon without distention. The appendix appears normal caliber. The small bowel loops are normal caliber. No inflammatory process, free air or free fluid seen especially right lower quadrant. ABDOMINAL WALL: Tiny umbilical hernia containing fat LYMPH NODES: Normal. VASCULAR: Unremarkable. PELVIC VISCERA: There is a small pessary seen in the pelvis OSSEOUS STRUCTURES: No aggressive lytic or sclerotic process seen. There is mild degenerative disc changes and spondylosis throughout lumbar spine. Moderate degenerative changes with subchondral cyst and spurring left hip. CT/CT abdomen pelvis w IV con IMPRESSION: No acute intra-abdominal process seen. Scattered colonic diverticulosis without diverticulitis. Normal appendix Fleischner guidelines were followed. Electronically signed by: Aaron Garza MD 02/17/2024 10:02 PM [facility] Discharge Plan Discharge Clinical Impression: Abdominal pain, Acute upper respiratory infection Patient Disposition: Home, Self-Care Instructions: Upper Respiratory Infection (ED), Abdominal Pain (ED) Additional Instructions: Your CT scan showed gas bubbles but no other significant findings You may use Gas-X to help with this discomfort Continue all of your home medications as prescribed. Take azithromycin for sinusitis. You may also use an [id number] decongestant Prescriptions: New azithromycin 250 mg tablet See Rx Instructions .ROUTE .COMPLEX Qty: 6 0RF Rx Instructions: For 250 mg dose pack: take 500 mg today (day 1), then 250 mg for 4 days (days 2-5) No Action atorvastatin 10 mg tablet 1 tab PO BEDTIME carvedilol 6.25 mg tablet 1 tab PO BIDWM cetirizine 10 mg tablet 1 tab PO DAILY magnesium oxide 400 mg (241.3 mg magnesium) tablet 1 tab PO DAILY levothyroxine 50 mcg tablet 1 tab PO DAILY@0600 ferrous sulfate 325 mg (65 mg iron) tablet 1 tab PO DAILY montelukast 10 mg tablet 1 tab PO BEDTIME pregabalin 225 mg capsule 1 cap PO BID furosemide 40 mg tablet 80 mg PO DAILY fluticasone propion-salmeterol [Advair Diskus] 250-50 mcg/dose blister with device 1 ea inhalation BID dicyclomine 10 mg capsule 10 mg PO TID PRN (Reason: Abdominal Pain) ondansetron HCl 4 mg tablet 4 mg PO Q8H PRN (Reason: Nausea) Citrucel 500 mg tablet 500 mg PO DAILY tramadol 25 mg tablet 25 mg PO Q6H PRN (Reason: pain (scale score 7-10)) Qty: 10 0RF losartan 25 mg tablet 25 mg PO DAILY dexlansoprazole [Dexilant] 60 mg capsule,biphase delayed releas 60 mg PO DAILY@629 Print Language: Indonesian
[2024-02-17 21:02] VITALS: BP 140/53; PULSE 54; RESP 18; TEMP 36.4; O2SAT 99
[2024-02-17] MEDS: iohexoL 350 MG/ML 100 ML INFUS..BTL IV (21:16)
[2024-02-17 23:05] VITALS: BP 114/43; PULSE 62; RESP 18; TEMP 36.5; O2SAT 100
[2024-02-17 23:08] VITALS: BP 114/43; PULSE 62; RESP 18; TEMP 36.5; O2SAT 100
== END 2024-02-17 23:09 | disposition home or self-care (01) ==
PROVIDERS: Emergency Provider Emergency Medicine; PCP Internal Medicine
DX: J06.9 Acute upper respiratory infection, unspecified (principal); R10.2 Pelvic and perineal pain; J84.9 Interstitial pulmonary disease, unspecified; Z99.81 Dependence on supplemental oxygen; Z79.899 Other long term (current) drug therapy; Z03.818 Encounter for observation for suspected exposure to other biological agents ruled out
CPT/HCPCS: 0241U; 74177; 80053; 81001; 83690; 83735; 85025; 99285; Q9967

== ENCOUNTER 2024-04-01 14:52 | Emergency (ER) | payer MEDICARE, MEDICAID, SELFPAY ==
[2024-04-01 15:10] VITALS: BP 129/54; PULSE 62; PULSE 63; RESP 17; TEMP 36.7; O2SAT 100; O2SAT 99; BMI 54.7
--- OUTSIDE RECORDS SUMMARY | 2024-04-01 15:19 | XMS_ITS | Clinical Summary ---
Author Organization Unknown Care Team Providers Care Professional Benefits Sales Consultant Name Role Phone ZULAY FAYE MD, CLAUDE Unavailable Unavail able VALERIE RN, LISET Unavailable Unavailab melody RAMIREZ PT, ZARINA Unavailable Unavailable SPAFFORD OT, RIVERA Unavailable Unavailable SEAN SALESPERSON HOSIERY/PEPPER, DAYANNA Unavailable Unavail able ESTRADA HANDSTITCHING MACHINE ARMHOLE FELLER, CHI Unavailable Unavailable [facility] JULIANNA [facility], HEATHER Unavailable Unavailable CECIL DIRECTOR OF HUMAN RESOURCES, ANDRAE Unavailable Arlene vailable Payers Payer Name Policy Type Policy Number Effective Date Expira tion Date MEDICARE.NGS.PDGM [id number] Problems Condition Name Condition Details Condition Category Status Onset Date Resolution Date Last Treatment Date Treating Clinician Comments 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 Active 07-12 00:00: 00 HYPERTENSIVE HEART DISEASE WITH HEART FAILURE Active 07-12 00:00: 00 HEART FAILURE, UNSPECIFIED Active 07-12 00:00: 00 OTHER SPECIFIED INTERSTITIAL PULMONARY DISEASES Active 04-09 00:00: 00 CHRONIC RESPIRATORY FAILURE WITH HYPOXIA Active 04-09 00:00: 00 UNSPECIFIED ASTHMA, UNCOMPLICATE D Active 04-09 00:00: 00 HEREDITARY AND IDIOPATHIC NEUROPATHY, UNSPECIFIED Active 04-09 00:00: 00 MUSCLE WEAKNESS (GENERALIZED ) Active 04-09 00:00: 00 DEPRESSION, UNSPECIFIED Active 04-09 00:00: 00 HYPOTHYROIDI SM, UNSPECIFIED Active 04-09 00:00: 00 OTHER SEASONAL ALLERGIC RHINITIS Active 04-09 00:00: 00 MORBID (SEVERE) OBESITY DUE TO EXCESS CALORIES Active 04-09 00:00: 00 GASTRO-ESOPH AGEAL REFLUX DISEASE WITHOUT ESOPHAGITIS Active 04-09 00:00: 00 PURE HYPERCHOLEST EROLEMIA, UNSPECIFIED Active 04-09 00:00: 00 INTERMEDIATE (CURRENT) USE OF INHALED STEROIDS Active 07-12 00:00: 00 BODY MASS INDEX [BMI] 50.0-59.9, ADULT Active 04-09 00:00: 00 Allergies, Adverse Reactions, Alerts Allergy Name Allergy Type Status Severity Reaction(s) Onset Date Inactive Date Treating Clinician Comments IBUPROFEN Propensity to adverse reactions Active 07-11 13:14: 24 CELEBREX Propensity to adverse reactions Active 07-11 13:14: 29 LATEX, NATURAL RUBBER Propensity to adverse reactions Active 07-11 13:14: 36 Medications Ordered Medication Name Filled Medication Name Start Date Stop Date Current Medication? Ordering Clinician Indication Dosage Frequency Signature (SIG) Comments Components ketoconazol e 2 % topical cream 09-14 00:00: 00 12-08 23:59 :00 No [id number] RASH 1 inch TWICE A DAY 1 inch TWICE A DAY (route: topical) Med Classific ation: Dermatolo gical famotidine 40 mg tablet 09-10 00:00: 00 10-21 00:00 :00 No [id number] Per instruc tions ONCE DAILY Per instructio ns ONCE DAILY (route: oral) Med Classific ation: Gastroint estinal Therapy Agents cetirizine 10 mg tablet 09-21 00:00: 00 04-28 00:00 :00 No [id number] ASTHMA 1 tablet EVERY DAY 1 tablet EVERY DAY (route: oral) Med Classific ation: Respirato ry Therapy Agents montelukast 10 mg tablet 09-11 00:00: 00 04-28 00:00 :00 No [id number] ASTHMA 1 tablet EVERY DAY AT BEDTIME 1 tablet EVERY DAY AT BEDTIME (route: oral) Med Classific ation: Respirato ry Therapy Agents hydrochloro thiazide 25 mg tablet 07-12 00:00: 00 10-21 00:00 :00 No [id number] Per instruc tions EVERY DAY Per instructio ns EVERY DAY (route: oral) Med Classific ation: Cardiovas cular Therapy Agents levothyroxi ne 50 mcg tablet 6-05 00:00: 00 04-28 00:00 :00 No [id number] THYROID 1 tablet EVERY DAY 1 tablet EVERY DAY (route: oral) Med Classific ation: Endocrine carvedilol 6.25 mg tablet 4-03 00:00: 00 04-28 00:00 :00 No [id number] HYPERTENSIO N 1 tablet TWICE A DAY 1 tablet TWICE A DAY (route: oral) Med Classific ation: Cardiovas cular Therapy Agents pregabalin 225 mg capsule 5-12 00:00: 00 10-21 23:59 :00 No [id number] NEUROPATHY Per instruc tions TWICE A DAY Per instructio ns TWICE A DAY (route: oral) Med Classific ation: Central Nervous System Agents atorvastati n 10 mg tablet 4-05 00:00: 00 04-28 00:00 :00 No [id number] HYPERTENSIO N 1 tablet EVERY DAY 1 tablet EVERY DAY (route: oral) Med Classific ation: Cardiovas cular Therapy Agents Dexilant 60 mg capsule, delayed release 09-13 00:00: 00 10-21 00:00 :00 No [id number] Per instruc tions ONCE DAILY Per instructio ns ONCE DAILY (route: oral) Med Classific ation: Gastroint estinal Therapy Agents Advair Diskus 250 mcg-50 mcg/dose powder for inhalation 10-21 00:00: 00 04-28 00:00 :00 No [id number] ASTHMA 1 inhalat ion 2 TIMES DAILY 1 inhalation 2 TIMES DAILY (route: inhalation ) Med Classific ation: Respirato ry Therapy Agents Dry Eye Relief 1 %-0.2 %-0.2 % drops 10-21 00:00: 00 04-28 00:00 :00 No [id number] DRY EYES 1 drops EVERY 4 HOURS 1 drops EVERY 4 HOURS (route: ophthalmic (eye)) Med Classific ation: Ophthalmi c Agents furosemide 40 mg tablet 10-21 00:00: 04-28 00:00 :00 No [id number] HYPERTENSIO N 1 tablet EVERY AM 1 tablet EVERY AM (route: oral) Med Classific ation: Cardiovas cular Therapy Agents nystatin 100,000 unit/mL oral suspension 10-21 00:00: 00 10-26 23:59 :00 No [id number] THRUSH 5 mL 4 TIMES DAILY 5 mL 4 TIMES DAILY (route: oral) Med Classific ation: Mouth-Thr oat-Denta l - Preparati ons O2 - OXYGEN 10-21 00:00: 00 04-28 00:00 :00 No [id number] RESPIRATORY FAILURE 2-3 Liter O2 - CONTINUOUS 2-3 Liter O2 - CONTINUOUS (route: Oxygen) Med Classific ation: Medical Oxygen pantoprazol e 40 mg tablet,dwaine yed release 10-21 00:00: 00 04-28 00:00 :00 No [id number] GERD 1 tablet EVERY AM 1 tablet EVERY AM (route: oral) Med Classific ation: Gastroint estinal Therapy Agents pregabalin 150 mg capsule 10-21 00:00: 00 04-28 00:00 :00 No [id number] NEUROPATHY 1 capsule 2 TIMES DAILY 1 capsule 2 TIMES DAILY (route: oral) Med Classific ation: Central Nervous System Agents clotrimazol e-betametha sone 1 %-0.05 % topical cream 12-08 00:00: 00 04-28 00:00 :00 No [id number] RASH Per instruc tions 2 TIMES DAILY Per instructio ns 2 TIMES DAILY (route: topical) Med Classific ation: Dermatolo gical fluconazole 150 mg tablet 12-08 00:00: 00 12-15 23:59 :00 No [id number] RASH 1 tablet DAILY 1 tablet DAILY (route: oral) Med Classific ation: Anti-Infe ctive Agents ciclopirox 0.77 % topical cream 2020-04- 00:00: 00 11-21 23:59 :00 No [id number] FUNGAL INFECTION Per instruc tions LOCALLY TWO TIMES A DAY Per instructio ns LOCALLY TWO TIMES A DAY (route: topical) Med Classific ation: Dermatolo gical Advair Diskus 250 mcg-50 mcg/dose powder for inhalation 2020-04 00:00: 00 04-28 00:00 :00 No [id number] Per instruc tions TWICE A DAY Per instructio ns TWICE A DAY (route: inhalation ) Med Classific ation: Respirato ry Therapy Agents pregabalin 225 mg capsule 2020-04 00:00: 00 11-21 23:59 :00 No [id number] PAIN 1 capsule TWICE A DAY 1 capsule TWICE A DAY (route: oral) Med Classific ation: Central Nervous System Agents carvedilol 6.25 mg tablet 2020-04 00:00: 00 04-28 00:00 :00 No [id number] Per instruc tions TWO TIMES A DAY Per instructio ns TWO TIMES A DAY (route: oral) Med Classific ation: Cardiovas cular Therapy Agents furosemide 40 mg tablet 2020-04 00:00: 00 04-28 00:00 :00 No [id number] Per instruc tions ONCE DAILY Per instructio ns ONCE DAILY (route: oral) Med Classific ation: Cardiovas cular Therapy Agents cetirizine 10 mg tablet 01-03 00:00: 00 04-28 00:00 :00 No [id number] Per instruc tions ONCE DAILY Per instructio ns ONCE DAILY (route: oral) Med Classific ation: Respirato ry Therapy Agents montelukast 10 mg tablet 2020-04 00:00: 00 04-28 00:00 :00 No [id number] Per instruc tions EVERY DAY AT BEDTIME Per instructio ns EVERY DAY AT BEDTIME (route: oral) Med Classific ation: Respirato ry Therapy Agents magnesium oxide 400 mg (241.3 mg magnesium) tablet 2020-04 00:00: 00 11-21 23:59 :00 No [id number] SUPPLEMENT Per instruc tions ONCE DAILY Per instructio ns ONCE DAILY (route: oral) Med Classific ation: Electroly te Balance-N utritiona l Products metoclopram anat 10 mg tablet 05-11 00:00: 00 11-21 23:59 :00 No [id number] GERD 1 tablet 2 TIMES DAILY 1 tablet 2 TIMES DAILY (route: oral) Med Classific ation: Gastroint estinal Therapy Agents Advair Diskus 250 mcg-50 mcg/dose powder for inhalation 05-20 00:00: 00 11-21 23:59 :00 No [id number] BREATHING 1 inhalat ion 2 TIMES DAILY 1 inhalation 2 TIMES DAILY (route: inhalation ) Alternate Route: BY MOUTH. Med Classific ation: Respirato ry Therapy Agents atorvastati n 10 mg tablet 05-20 00:00: 00 11-21 23:59 :00 No [id number] BP 1 tablet DAILY 1 tablet DAILY (route: oral) Alternate Route: BY MOUTH. Med Classific ation: Cardiovas cular Therapy Agents carvedilol 6.25 mg tablet 05-20 00:00: 00 11-21 23:59 :00 No [id number] BP 1 tablet 2 TIMES DAILY 1 tablet 2 TIMES DAILY (route: oral) Alternate Route: BY MOUTH. Med Classific ation: Cardiovas cular Therapy Agents cetirizine 10 mg tablet 05-20 00:00: 00 11-21 23:59 :00 No [id number] ALLERGIES 1 tablet DAILY 1 tablet DAILY (route: oral) Alternate Route: BY MOUTH. Med Classific ation: Respirato ry Therapy Agents ferrous gluconate 324 mg (37.5 mg iron) tablet 05-20 00:00: 00 11-21 23:59 :00 No [id number] LOW IRON 1 tablet DAILY 1 tablet DAILY (route: oral) Alternate Route: BY MOUTH. Med Classific ation: Electroly te Balance-N utritiona l Products furosemide 40 mg tablet 05-20 00:00: 00 11-21 23:59 :00 No [id number] FLUID OVERLOAD 1 tablet DAILY 1 tablet DAILY (route: oral) Alternate Route: BY MOUTH. Med Classific ation: Cardiovas cular Therapy Agents levothyroxi ne 50 mcg capsule 05-20 00:00: 00 11-21 23:59 :00 No [id number] THYROID 1 capsule DAILY 1 capsule DAILY (route: oral) Alternate Route: BY MOUTH. Med Classific ation: Endocrine losartan 25 mg tablet 05-20 00:00: 00 11-21 23:59 :00 No [id number] BP 1 tablet DAILY 1 tablet DAILY (route: oral) Alternate Route: BY MOUTH. Med Classific ation: Cardiovas cular Therapy Agents montelukast 10 mg tablet 05-20 00:00: 00 11-21 23:59 :00 No [id number] BP 1 tablet DAILY 1 tablet DAILY (route: oral) Alternate Route: BY MOUTH. Med Classific ation: Respirato ry Therapy Agents atorvastati n 10 mg tablet 11-22 00:00: 00 Yes [id number] HLD 1 tablet DAILY 1 tablet DAILY (route: oral) Med Classific ation: Cardiovas cular Therapy Agents carvedilol 6.25 mg tablet 11-22 00:00: 00 Yes [id number] HTN 1 tablet 2 TIMES DAILY 1 tablet 2 TIMES DAILY (route: oral) Med Classific ation: Cardiovas cular Therapy Agents cefuroxime axetil 250 mg tablet 11-21 00:00: 00 06-05 00:00 :00 No [id number] Per instruc tions Per instructio ns (route: oral) Med Classific ation: Anti-Infe ctive Agents Advair Diskus 250 mcg-50 mcg/dose powder for inhalation 11-14 00:00: 00 Yes [id number] COPD 1 inhalat ion TWICE A DAY 1 inhalation TWICE A DAY (route: inhalation ) Med Classific ation: Respirato ry Therapy Agents furosemide 40 mg tablet 11-08 00:00: 00 Yes [id number] DIURETIC 2 tablet EVERY DAY 2 tablet EVERY DAY (route: oral) Med Classific ation: Cardiovas cular Therapy Agents amitriptyli ne 10 mg tablet 11-07 00:00: 00 06-05 00:00 :00 No [id number] Per instruc tions DAILY AT BEDTIME; IF NEEDED AT NIGHT EACH WEEK UP TO 40MG DIRECTED Per instructio ns DAILY AT BEDTIME; IF NEEDED AT NIGHT EACH WEEK UP TO 40MG DIRECTED (route: oral) Med Classific ation: Central Nervous System Agents ferrous sulfate 325 mg (65 mg iron) tablet 10-26 00:00: 00 Yes [id number] SUPPLEMENT 1 tablet DAILY 1 tablet DAILY (route: oral) Med Classific ation: Electroly te Balance-N utritiona l Products cetirizine 10 mg tablet 10-25 00:00: 00 Yes [id number] ANTIHISTAMI NE 1 tablet EVERY DAY 1 tablet EVERY DAY (route: oral) Med Classific ation: Respirato ry Therapy Agents dexlansopra zole 60 mg capsule,bip hase delayed release 10-25 00:00: 00 Yes [id number] ANTISPASMOD IC 1 capsule EVERY DAY 1 capsule EVERY DAY (route: oral) Med Classific ation: Gastroint estinal Therapy Agents losartan 25 mg tablet 10-25 00:00: 00 Yes [id number] HTN 1 tablet EVERY DAY 1 tablet EVERY DAY (route: oral) Med Classific ation: Cardiovas cular Therapy Agents ciprofloxac in 500 mg tablet 05-31 00:00: 00 06-05 00:00 :00 No [id number] Per instruc tions TWICE A DAY Per instructio ns TWICE A DAY (route: oral) Med Classific ation: Anti-Infe ctive Agents metronidazo le 500 mg tablet 05-31 00:00: 00 06-05 00:00 :00 No [id number] Per instruc tions TWICE A DAY FOR 10 DAYS Per instructio ns TWICE A DAY FOR 10 DAYS (route: oral) Med Classific ation: Anti-Infe ctive Agents atorvastati n 10 mg tablet 05-25 00:00: 00 06-05 00:00 :00 No [id number] Per instruc tions Per instructio ns (route: oral) Med Classific ation: Cardiovas cular Therapy Agents carvedilol 6.25 mg tablet 05-25 00:00: 00 06-05 00:00 :00 No [id number] Per instruc tions Per instructio ns (route: oral) Med Classific ation: Cardiovas cular Therapy Agents dexlansopra zole 60 mg capsule,bip hase delayed release 2-16 00:00: 00 06-05 00:00 :00 No [id number] Per instruc tions Per instructio ns (route: oral) Med Classific ation: Gastroint estinal Therapy Agents dicyclomine 10 mg capsule 2-16 00:00: 00 Yes [id number] IBS 1 capsule 3 TIMES DAILY 1 capsule 3 TIMES DAILY (route: oral) Med Classific ation: Gastroint estinal Therapy Agents furosemide 40 mg tablet -16 00:00: 00 06-05 00:00 :00 No [id number] Per instruc tions Per instructio ns (route: oral) Med Classific ation: Cardiovas cular Therapy Agents levothyroxi ne 50 mcg tablet -16 00:00: 00 Yes [id number] HYPOTHYROID ISM 1 tablet DAILY 1 tablet DAILY (route: oral) Med Classific ation: Endocrine losartan 25 mg tablet 2-16 00:00: 00 06-05 00:00 :00 No [id number] Per instruc tions Per instructio ns (route: oral) Med Classific ation: Cardiovas cular Therapy Agents montelukast 10 mg tablet 2-16 00:00: 00 Yes [id number] ASTHMA 1 tablet BEDTIME 1 tablet BEDTIME (route: oral) Med Classific ation: Respirato ry Therapy Agents pregabalin 225 mg capsule 2-16 00:00: 00 Yes [id number] NEUROPATHY 1 capsule 2 TIMES DAILY 1 capsule 2 TIMES DAILY (route: oral) Med Classific ation: Central Nervous System Agents Estring 2 mg (7.5 mcg/24 hour) vaginal ring 2-13 00:00: 00 06-05 00:00 :00 No [id number] Per instruc tions INSERT 1 RING VAGINALLY EVERY Per instructio ns INSERT 1 RING VAGINALLY EVERY (route: vaginal) Med Classific ation: Vaginal Products metronidazo le 500 mg tablet 2-09 00:00: 00 06-05 00:00 :00 No [id number] Per instruc tions TWICE A DAY FOR 10 DAYS Per instructio ns TWICE A DAY FOR 10 DAYS (route: oral) Med Classific ation: Anti-Infe ctive Agents tramadol 50 mg tablet 2-09 00:00: 00 Yes [id number] PAIN 1 tablet EVERY 6 HOURS NEEDED 1 tablet EVERY 6 HOURS NEEDED (route: oral) Med Classific ation: Analgesic , Anti-infl ammatory or Antipyret ic cetirizine 10 mg tablet 2-08 00:00: 00 06-05 00:00 :00 No [id number] Per instruc tions EVERY DAY Per instructio ns EVERY DAY (route: oral) Med Classific ation: Respirato ry Therapy Agents magnesium 400 mg (as magnesium oxide) capsule 7-19 00:00: 00 Yes [id number] SUPPLEMENT 1 capsule DAILY 1 capsule DAILY (route: oral) Med Classific ation: Electroly te Balance-N utritiona l Products miconazole nitrate 100 mg vaginal suppository 2- 00:00: 00 Yes [id number] YEAST INFECTION 1 supposi tory, vaginal BEDTIME 1 suppositor y, vaginal BEDTIME (route: vaginal) Med Classific ation: Vaginal Products ondansetron HCl 4 mg tablet 3-15 00:00: 00 Yes [id number] NAUSEA 1 tablet NEEDED 1 tablet NEEDED (route: oral) Med Classific ation: Gastroint estinal Therapy Agents Citrucel 500 mg tablet 4-06 00:00: 00 Yes [id number] CONSTIPATIO N 1 tablet DAILY 1 tablet DAILY (route: oral) Med Classific ation: Gastroint estinal Therapy Agents Vital Signs Vital Name Observation Time Observation Value Commen ts Temperature 2023-09-06 13:59:00.000 97.4 [degF] Temperature 2023-09-04 12:16:00.000 97.9 [degF] Temperature 2023-08-27 12:27:00.000 97.6 [degF] Temperature 2023-08-24 11:16:00.000 97.9 [degF] Temperature 2023-08-14 12:25:00.000 97.5 [degF] Temperature 2023-08-13 14:11:00.000 97.1 [degF] Temperature 2023-08-08 11:01:00.000 98 [degF] Temperature 2023-08-03 11:00:00.000 98.5 [degF] Temperature 2023-08-01 14:14:00.000 97.1 [degF] Temperature 2023-08-01 12:18:00.000 98.9 [degF] Temperature 2023-07-31 15:16:00.000 97.7 [degF] Temperature 2023-07-25 14:14:00.000 97.7 [degF] Temperature 2023-07-25 11:35:00.000 97.9 [degF] Temperature 2023-07-23 16:10:00.000 97.1 [degF] Temperature 2023-07-20 10:27:00.000 98.1 [degF] Temperature 2023-07-19 13:11:00.000 98 [degF] Temperature 2023-07-18 14:19:00.000 97.8 [degF] Temperature 2023-07-18 12:25:00.000 97.5 [degF] Temperature 2023-07-17 11:35:00.000 97.7 [degF] BMI (%) 2023-07-13 13:00:00.000 52 kg/m2 Height 2023-07-13 13:00:00.000 65 [in_us] Pulse 2023-09-06 13:59:00.000 58 /min Pulse 2023-09-04 12:16:00.000 63 /min Pulse 2023-08-27 12:27:00.000 60 /min Pulse 2023-08-24 11:16:00.000 72 /min Pulse 2023-08-14 12:25:00.000 62 /min Pulse 2023-08-13 14:11:00.000 70 /min Pulse 2023-08-08 11:01:00.000 58 /min Pulse 2023-08-03 11:00:00.000 61 /min Pulse 2023-08-01 14:14:00.000 60 /min Pulse 2023-08-01 12:18:00.000 65 /min Pulse 2023-07-31 15:16:00.000 75 /min Pulse 2023-07-25 14:14:00.000 67 /min Pulse 2023-07-25 11:35:00.000 74 /min Pulse 2023-07-23 16:10:00.000 60 /min Pulse 2023-07-20 10:27:00.000 57 /min Pulse 2023-07-19 13:11:00.000 60 /min Pulse 2023-07-18 14:19:00.000 74 /min Pulse 2023-07-18 12:25:00.000 60 /min Pulse 2023-07-17 11:35:00.000 68 /min Pulse 2023-07-13 13:00:00.000 80 /min O2 Saturation (%) 2023-09-06 13:59:00.000 100 % O2 Saturation (%) 2023-09-04 12:16:00.000 99 % O2 Saturation (%) 2023-08-27 12:27:00.000 97 % O2 Saturation (%) 2023-08-24 11:16:00.000 98 % O2 Saturation (%) 2023-08-14 12:25:00.000 98 % O2 Saturation (%) 2023-08-13 14:11:00.000 95 % O2 Saturation (%) 2023-08-08 11:01:00.000 97 % O2 Saturation (%) 2023-08-03 11:00:00.000 97 % O2 Saturation (%) 2023-08-01 14:14:00.000 99 % O2 Saturation (%) 2023-08-01 12:18:00.000 97 % O2 Saturation (%) 2023-07-31 15:16:00.000 98 % O2 Saturation (%) 2023-07-25 14:14:00.000 97 % O2 Saturation (%) 2023-07-25 11:35:00.000 97 % O2 Saturation (%) 2023-07-23 16:10:00.000 98 % O2 Saturation (%) 2023-07-20 10:27:00.000 96 % O2 Saturation (%) 2023-07-19 13:11:00.000 99 % O2 Saturation (%) 2023-07-18 14:19:00.000 97 % O2 Saturation (%) 2023-07-18 12:25:00.000 98 % O2 Saturation (%) 2023-07-17 11:35:00.000 95 % O2 Saturation (%) 2023-07-13 13:00:00.000 98 % Respirations 2023-09-06 13:59:00.000 18 /min Respirations 2023-09-04 12:16:00.000 18 /min Respirations 2023-08-27 12:27:00.000 18 /min Respirations 2023-08-24 11:16:00.000 18 /min Respirations 2023-08-14 12:25:00.000 18 /min Respirations 2023-08-13 14:11:00.000 18 /min Respirations 2023-08-08 11:01:00.000 18 /min Respirations 2023-08-03 11:00:00.000 18 /min Respirations 2023-08-01 14:14:00.000 16 /min Respirations 2023-08-01 12:18:00.000 18 /min Respirations 2023-07-31 15:16:00.000 18 /min Respirations 2023-07-25 14:14:00.000 18 /min Respirations 2023-07-25 11:35:00.000 17 /min Respirations 2023-07-23 16:10:00.000 18 /min Respirations 2023-07-20 10:27:00.000 18 /min Respirations 2023-07-19 13:11:00.000 18 /min Respirations 2023-07-18 14:19:00.000 18 /min Respirations 2023-07-18 12:25:00.000 18 /min Respirations 2023-07-17 11:35:00.000 18 /min Respirations 2023-07-13 13:00:00.000 18 /min Weight (lbs) 2023-09-06 14:00:00.000 300 [lb_av] Weight (lbs) 2023-09-04 12:16:00.000 300.6 [lb_av] Weight (lbs) 2023-08-27 12:28:00.000 301.8 [lb_av] Weight (lbs) 2023-08-24 11:17:00.000 307.8 [lb_av] Weight (lbs) 2023-08-14 12:26:00.000 306.6 [lb_av] Weight (lbs) 2023-08-13 14:12:00.000 306.2 [lb_av] Weight (lbs) 2023-07-31 15:18:00.000 307 [lb_av] Weight (lbs) 2023-07-25 11:35:00.000 304.8 [lb_av] Weight (lbs) 2023-07-23 16:11:00.000 303.4 [lb_av] Weight (lbs) 2023-07-20 10:27:00.000 303.2 [lb_av] Weight (lbs) 2023-07-18 12:26:00.000 303 [lb_av] Weight (lbs) 2023-07-13 13:00:00.000 314 [lb_av] Systolic Blood Pressure 2023-09-06 13:59:00.000 104 mm [Hg] Systolic Blood Pressure 2023-09-04 12:16:00.000 122 mm [Hg] Systolic Blood Pressure 2023-08-24 11:16:00.000 124 mm [Hg] Systolic Blood Pressure 2023-08-14 12:25:00.000 108 mm [Hg] Systolic Blood Pressure 2023-08-08 11:01:00.000 130 mm [Hg] Systolic Blood Pressure 2023-08-03 11:00:00.000 110 mm [Hg] Systolic Blood Pressure 2023-08-01 14:14:00.000 122 mm [Hg] Systolic Blood Pressure 2023-08-01 12:18:00.000 110 mm [Hg] Systolic Blood Pressure 2023-07-25 11:35:00.000 128 mm [Hg] Systolic Blood Pressure 2023-07-23 16:10:00.000 130 mm [Hg] Systolic Blood Pressure 2023-07-20 10:27:00.000 102 mm [Hg] Systolic Blood Pressure 2023-07-19 13:11:00.000 108 mm [Hg] Systolic Blood Pressure 2023-07-18 12:25:00.000 124 mm [Hg] Systolic Blood Pressure 2023-07-17 11:35:00.000 108 mm [Hg] Systolic Blood Pressure 2023-07-13 13:00:00.000 120 mm [Hg] Diastolic Blood Pressure 2023-09-06 13:59:00.000 56 mm [Hg] Diastolic Blood Pressure 2023-09-04 12:16:00.000 60 mm [Hg] Diastolic Blood Pressure 2023-08-24 11:16:00.000 74 mm [Hg] Diastolic Blood Pressure 2023-08-14 12:25:00.000 64 mm [Hg] Diastolic Blood Pressure 2023-08-08 11:01:00.000 68 mm [Hg] Diastolic Blood Pressure 2023-08-03 11:00:00.000 60 mm [Hg] Diastolic Blood Pressure 2023-08-01 14:14:00.000 78 mm [Hg] Diastolic Blood Pressure 2023-08-01 12:18:00.000 60 mm [Hg] Diastolic Blood Pressure 2023-07-25 11:35:00.000 78 mm [Hg] Diastolic Blood Pressure 2023-07-23 16:10:00.000 60 mm [Hg] Diastolic Blood Pressure 2023-07-20 10:27:00.000 58 mm [Hg] Diastolic Blood Pressure 2023-07-19 13:11:00.000 68 mm [Hg] Diastolic Blood Pressure 2023-07-18 12:25:00.000 64 mm [Hg] Diastolic Blood Pressure 2023-07-17 11:35:00.000 58 mm [Hg] Diastolic Blood Pressure 2023-07-13 13:00:00.000 70 mm [Hg] Plan of Treatment Planned Activity Planned Date Details Comments Future Scheduled Test SPEECH THE RAPIST TO EVALUATE FOR SWALLOW ASSESSMENT [code = SPEECH THERAPIST TO EVALUATE FOR SWALLOW ASSESSMENT] Future Scheduled Test MEDICATION MANAGEMENT; REGISTERED NURSE/LICENSED PRACTICAL NURSE TO REVIEW MEDICATIONS FOR INTERACTIONS, EFFECTIVENESS OF DRUG THERAPY, AND SIGNS/SYMPTOMS OF ADVERSE REACTIONS. MAY INSTRUCT AND REINFORCE MEDICATION TEACHING RELATED TO THE USE OF MEDICATIONS, DOSAGE, FREQUENCY, PURPOSE, SIDE EFFECTS, AND TO REPORT COMPLICATIONS. [code = MEDICATION MANAGEMENT; REGISTERED NURSE/LICENSED PRACTICAL NURSE TO REVIEW MEDICATIONS FOR INTERACTIONS, EFFECTIVENESS OF DRUG THERAPY, AND SIGNS/SYMPTOMS OF ADVERSE REACTIONS. MAY INSTRUCT AND REINFORCE MEDICATION TEACHING RELATED TO THE USE OF MEDICATIONS, DOSAGE, FREQUENCY, PURPOSE, SIDE EFFECTS, AND TO REPORT COMPLICATIONS.] Future Scheduled Test RESPIRATOR Y SYSTEM MANAGEMENT; REGISTERED NURSE TO ASSESS AND TEACH/LICENSED PRACTICAL NURSE TO OBSERVE AND TEACH RELATED TO ALTERED RESPIRATORY STATUS TO MINIMIZE COMPLICATIONS AND REDUCE HOSPITALIZATION. [code = RESPIRATORY SYSTEM MANAGEMENT; REGISTERED NURSE TO ASSESS AND TEACH/LICENSED PRACTICAL NURSE TO OBSERVE AND TEACH RELATED TO ALTERED RESPIRATORY STATUS TO MINIMIZE COMPLICATIONS AND REDUCE HOSPITALIZATION.] Future Scheduled Test OXYGEN THE RAPY; REGISTERED NURSE/LICENSED PRACTICAL NURSE TO INSTRUCT ON OXYGEN MANAGEMENT INCLUDING: ADMINISTRATION AT 3L/MIN VIA NC CONTINUOUS FOR ILD, CARE OF EQUIPMENT AND SAFETY. [code = OXYGEN THERAPY; REGISTERED NURSE/LICENSED PRACTICAL NURSE TO INSTRUCT ON OXYGEN MANAGEMENT INCLUDING: ADMINISTRATION AT 3L/MIN VIA NC CONTINUOUS FOR ILD, CARE OF EQUIPMENT AND SAFETY.] Future Scheduled Test FALL REDUC TION MANAGEMENT; REGISTERED NURSE TO ASSESS AND TEACH/LICENSED PRACTICAL NURSE TO OBSERVE AND TEACH ON EDUCATION AND INTERVENTION TO IDENTIFY FALL RISK FACTORS SUCH MEDICATIONS THAT MAY CAUSE DIZZINESS, CHRONIC DISEASES, PSYCHOLOGICAL FACTORS, AND EMPOWER/EDUCATE PATIENT/CAREGIVER TO MINIMIZE FALL RISK. [code = FALL REDUCTION MANAGEMENT; REGISTERED NURSE TO ASSESS AND TEACH/LICENSED PRACTICAL NURSE TO OBSERVE AND TEACH ON EDUCATION AND INTERVENTION TO IDENTIFY FALL RISK FACTORS SUCH MEDICATIONS THAT MAY CAUSE DIZZINESS, CHRONIC DISEASES, PSYCHOLOGICAL FACTORS, AND EMPOWER/EDUCATE PATIENT/CAREGIVER TO MINIMIZE FALL RISK. ] Future Scheduled Test RN TO OBSE RVE, ASSESS, EVALUATE, AND DEVELOP AN INDIVIDUALIZED PLAN OF CARE. AGENCY MAY ACCEPT ORDERS FROM CONSULTING PHYSICIANS . REGISTERED NURSETO OBSERVE AND ASSESS/LICENSED PRACTICAL NURSE TO OBSERVE FOR RISK FOR FALLS AND INSTRUCT IN FALL PREVENTION, HOME SAFETY, MEDICATION MANAGEMENT, INFECTION PREVENTION, AND NUTRITION MANAGEMENT. REGISTERED NURSE/LICENSED PRACTICAL NURSE MAY PERFORM O2 SATURATION LEVEL ON ADMISSION AND PRN FOR RN TO ASSESS/DIRECTOR OF HUMAN RESOURCES TO OBSERVE PATIENT, WITH NOTIFICATION TO THE PHYSICIAN IF SATURATION IS 90% IN THE ABSENCE OF MORE SPECIFIC PARAMETERS FROM THE PHYSICIAN. AGENCY MAY PERFORM A RESUMPTION OF CARE VISIT FOLLOWING ANY HOSPITAL ADMISSION. REGISTERED NURSE/LICENSED PRACTICAL NURSE TO MONITOR CO-MORBID CONDITIONS LISTED ON THE PLAN OF CARE AND ANY NEW CONDITIONS THAT PRESENT THEMSELVES DURING THIS EPISODE TO IDENTIFY CHANGES AND INTERVENE TO MINIMIZE COMPLICATIONS. [code = RN TO OBSERVE, ASSESS, EVALUATE, AND DEVELOP AN INDIVIDUALIZED PLAN OF CARE. AGENCY MAY ACCEPT ORDERS FROM CONSULTING PHYSICIANS . REGISTERED NURSETO OBSERVE AND ASSESS/LICENSED PRACTICAL NURSE TO OBSERVE FOR RISK FOR FALLS AND INSTRUCT IN FALL PREVENTION, HOME SAFETY, MEDICATION MANAGEMENT, INFECTION PREVENTION, AND NUTRITION MANAGEMENT. REGISTERED NURSE/LICENSED PRACTICAL NURSE MAY PERFORM O2 SATURATION LEVEL ON ADMISSION AND PRN FOR RN TO ASSESS/DIRECTOR OF HUMAN RESOURCES TO OBSERVE PATIENT, WITH NOTIFICATION TO THE PHYSICIAN IF SATURATION IS 90% IN THE ABSENCE OF MORE SPECIFIC PARAMETERS FROM THE PHYSICIAN. AGENCY MAY PERFORM A RESUMPTION OF CARE VISIT FOLLOWING ANY HOSPITAL ADMISSION. REGISTERED NURSE/LICENSED PRACTICAL NURSE TO MONITOR CO-MORBID CONDITIONS LISTED ON THE PLAN OF CARE AND ANY NEW CONDITIONS THAT PRESENT THEMSELVES DURING THIS EPISODE TO IDENTIFY CHANGES AND INTERVENE TO MINIMIZE COMPLICATIONS.] Future Scheduled Test GASTROINTE STINAL MANAGEMENT; REGISTERED NURSE TO ASSESS AND TEACH/LICENSED PRACTICAL NURSE TO OBSERVE AND TEACH RELATED TO ALTERED GASTROINTESTINAL STATUS TO MINIMIZE COMPLICATIONS AND REDUCE HOSPITALIZATION. [code = GASTROINTESTINAL MANAGEMENT; REGISTERED NURSE TO ASSESS AND TEACH/LICENSED PRACTICAL NURSE TO OBSERVE AND TEACH RELATED TO ALTERED GASTROINTESTINAL STATUS TO MINIMIZE COMPLICATIONS AND REDUCE HOSPITALIZATION.] Future Scheduled Test PAIN MANAG EMENT; REGISTERED NURSE TO ASSESS AND TEACH/LICENSED PRACTICAL NURSE TO OBSERVE AND TEACH AND PROVIDE EDUCATION ON PAIN MANAGEMENT TECHNIQUES. [code = PAIN MANAGEMENT; REGISTERED NURSE TO ASSESS AND TEACH/LICENSED PRACTICAL NURSE TO OBSERVE AND TEACH AND PROVIDE EDUCATION ON PAIN MANAGEMENT TECHNIQUES.] Future Scheduled Test DIAGNOSTIC CULTURE; DIAGNOSTIC CULTURE REGISTERED NURSE/LICENSED PRACTICAL NURSE TO COLLECT STOOL SPECIMEN FOR CDIFF TEST [code = DIAGNOSTIC CULTURE; DIAGNOSTIC CULTURE REGISTERED NURSE/LICENSED PRACTICAL NURSE TO COLLECT STOOL SPECIMEN FOR CDIFF TEST ] Future Scheduled Test RISK FOR H OSPITALIZATION; REGISTERED NURSE TO ASSESS /TEACH, LICENSED PRACTICAL NURSE TO OBSERVE/TEACH PATIENT/CAREGIVER ON RISK FOR HOSPITALIZATION/EMERGENCY ROOM VISITS, TEACH SIGNS AND SYMPTOMS THAT PUT PATIENT AT RISK, WHEN TO NOTIFY NURSE/PHYSICIAN OF COMPLICATIONS/DECLINE, AND WHEN TO CALL 911. [code = RISK FOR HOSPITALIZATION; REGISTERED NURSE TO ASSESS /TEACH, LICENSED PRACTICAL NURSE TO OBSERVE/TEACH PATIENT/CAREGIVER ON RISK FOR HOSPITALIZATION/EMERGENCY ROOM VISITS, TEACH SIGNS AND SYMPTOMS THAT PUT PATIENT AT RISK, WHEN TO NOTIFY NURSE/PHYSICIAN OF COMPLICATIONS/DECLINE, AND WHEN TO CALL 911.] Future Scheduled Test CARDIOVASC ULAR SYSTEM; REGISTERED NURSE TO ASSESS /TEACH, LICENSED PRACTICAL NURSE TO OBSERVE/TEACH RELATED TO ALTERED CARDIOVASCULAR STATUS TO MINIMIZE COMPLICATIONS AND REDUCE HOSPITALIZATION. [code = CARDIOVASCULAR SYSTEM; REGISTERED NURSE TO ASSESS /TEACH, LICENSED PRACTICAL NURSE TO OBSERVE/TEACH RELATED TO ALTERED CARDIOVASCULAR STATUS TO MINIMIZE COMPLICATIONS AND REDUCE HOSPITALIZATION.] Future Scheduled Test HEART FAIL URE MONITORING REGISTERED NURSE/LICENSED PRACTICAL NURSE TO MONITOR PATIENT FOR SIGNS AND SYMPTOMS OF HEART FAILURE EXACERBATION, MONITOR FOR ADHERENCE WITH MEDICATION AND HEART FAILURE MANAGEMENT REGIMEN. [code = HEART FAILURE MONITORING REGISTERED NURSE/LICENSED PRACTICAL NURSE TO MONITOR PATIENT FOR SIGNS AND SYMPTOMS OF HEART FAILURE EXACERBATION, MONITOR FOR ADHERENCE WITH MEDICATION AND HEART FAILURE MANAGEMENT REGIMEN.] Future Scheduled Test AGENCY MAY PERFORM A RESUMPTION OF CARE VISIT FOLLOWING ANY HOSPITAL ADMISSION. SPEECH THERAPY TO EVALUATE, ASSESS AND MONITOR, PROVIDE SKILLED THERAPEUTIC INTERVENTION, ACTIVITY, EDUCATION, AND TRAINING TO ADDRESS: DIET TOLERANCE/TRIALS (ST) COMPENSATORY STRATEGIES (ST) THERAPEUTIC EXERCISES (ST) RESPIRATORY MUSCLE STRENGTH AVIATION MAINTENANCE TECHNICIAN FOR IMPROVED SWALLOW AND/OR VOCAL FUNCTION.? (ST) FALL REDUCTION SELF-MANAGEMENT (ST); SPEECH THERAPY TO ASSESS AND RECORD PATIENT REPORTED WEIGHT AND NOTIFY CM / SAMPLE BOX MAKER FOR MD NOTIFICATION FOR SIGNS AND SYMPTOMS OF EXACERBATION (2LB WEIGHT GAIN IN 1 DAY, 5LBS IN A WEEK OR 5 LBS OVER BASELINE) OXYGEN SATURATION (ST). NOTIFY MD IF 02 SATS BELOW 90% AFTER 10 MIN OF REST. OXYGEN MANAGEMENT AND TEACHING (ST); PAIN MANAGEMENT (ST) [code = AGENCY MAY PERFORM A RESUMPTION OF CARE VISIT FOLLOWING ANY HOSPITAL ADMISSION. SPEECH THERAPY TO EVALUATE, ASSESS AND MONITOR, PROVIDE SKILLED THERAPEUTIC INTERVENTION, ACTIVITY, EDUCATION, AND TRAINING TO ADDRESS: DIET TOLERANCE/TRIALS (ST) COMPENSATORY STRATEGIES (ST) THERAPEUTIC EXERCISES (ST) RESPIRATORY MUSCLE STRENGTH AVIATION MAINTENANCE TECHNICIAN FOR IMPROVED SWALLOW AND/OR VOCAL FUNCTION.? (ST) FALL REDUCTION SELF-MANAGEMENT (ST); SPEECH THERAPY TO ASSESS AND RECORD PATIENT REPORTED WEIGHT AND NOTIFY CM / SAMPLE BOX MAKER FOR MD NOTIFICATION FOR SIGNS AND SYMPTOMS OF EXACERBATION (2LB WEIGHT GAIN IN 1 DAY, 5LBS IN A WEEK OR 5 LBS OVER BASELINE) OXYGEN SATURATION (ST). NOTIFY MD IF 02 SATS BELOW 90% AFTER 10 MIN OF REST. OXYGEN MANAGEMENT AND TEACHING (ST); PAIN MANAGEMENT (ST)] Goal 2023-09-06 Patient Goal - T O HANDLE GOING TO THE BATHROOM EASIER Goal Provider Goal - Goal Provider Goal - PATIENT/CAREGIVER TO VERBALIZE, AND CONSISTENTLY DEMONSTRATE EFFECTIVE, SAFE MANAGEMENT OF MEDICATION INCLUDING KNOWLEDGE OF EFFECTIVENESS, POTENTIAL SIDE EFFECTS AND DRUG REACTIONS AND WHEN TO CONTACT THE APPROPRIATE CARE PROVIDER. PATIENT/CAREGIVER WILL BE ABLE TO VERBALIZE UNDERSTANDING OF MEDICATION REGIMEN AND ACCURATELY TAKE MEDICATIONS PRESCRIBED WITHOUT ADVERSE EFFECTS BY EOE Goal Provider Goal - PATIENT / CAREGIVER WILL VERBALIZE/DEMONSTRATE UNDERSTANDING OF MEASURES TO MANAGE ALTERED RESPIRATORY STATUS BY END OF EPISODE. Goal Provider Goal - PATIENT/CAREGIVER WILL VERBALIZE/DEMONSTRATE UNDERSTANDING OF CARE AND MANAGEMENT OF OXYGEN THERAPY BY END OF EPISODE Goal Provider Goal - PATIENT/CAREGIVER ABLE TO IDENTIFY FALL RISK FACTORS AND IMPLEMENT STRATEGIES TO MINIMIZE FALL RISK. PATIENT/CAREGIVER WILL VERBALIZE/DEMONSTRATE AN ABILITY TO ADHERE TO FALL REDUCTION SELF MANAGEMENT AND LIFE-STYLE CHANGES AT DISCHARGE. PERSONAL GOAL(S) STATED BY PATIENT/CAREGIVER WILL BE MET BY EOE. Goal Provider Goal - A PLAN OF CARE WILL BE ESTABLISHED THAT MEETS THE PATIENTS NEEDS. PATIENT WILL DEMONSTRATE OXYGEN SATURATION WITHIN NORMAL LIMITS OR PATIENTS OPTIMAL LEVEL ESTABLISHED BY THE PHYSICIAN THROUGHOUT CARE. CHANGES TO CO-MORBID CONDITIONS AND ANY NEW CONDITIONS WILL BE IDENTIFIED AND REPORTED TO THE PHYSICIAN. Goal Provider Goal - PATIENT / CAREGIVER WILL VERBALIZE/DEMONSTRATE UNDERSTANDING OF MEASURES TO MANAGE ALTERED GASTROINTESTINAL STATUS BY END OF EPISODE. Goal Provider Goal - PATIENT / CAREGIVER WILL VERBALIZE / DEMONSTRATE UNDERSTANDING OF PAIN CONTROL MEASURES BY EOE Goal Provider Goal - PATIENT / CAREGIVER WILL VERBALIZE/DEMONSTRATE UNDERSTANDING OF PURPOSE OF LAB PROCEDURE AND LAB RESULTS WILL BE REPORTED TO PHYSICIAN WITH FOLLOW UP BY E OR Goal Provider Goal - PATIENT/CAREGIVER WILL VERBALIZE UNDERSTANDING OF SIGNS AND SYMPTOMS THAT PUT THE PATIENT AT RISK FOR HOSPITALIZATION /EMERGENCY ROOM VISITS, WHEN TO NOTIFY NURSE/PHYSICIAN OF COMPLICATIONS/DECLINE AND WHEN TO CALL 911. Goal Provider Goal - PATIENT / CAREGIVER WILL VERBALIZE/DEMONSTRATE UNDERSTANDING OF MEASURES TO MANAGE ALTERED CARDIOVASCULAR STATUS BY EOE Goal Provider Goal - HEART FAILURE CONDITION WILL BE CONTROLLED THROUGHOUT THE EPISODE. Goal Provider Goal - ST STG: PATIENT WILL IMPROVE DIET TEXTURE SAFETY FROM MIN-MOD TO MIN WITHIN [address] LTG: PATIENT WILL INCREASE DIET TEXTURE SAFETY FROM MIN-MOD TO MOD I WITHIN [address] STG: PATIENT WILL UTILIZE SWALLOW STRATEGIES IN 80 % OF TRIALS WITHIN [address] LTG: PATIENT/CAREGIVER INCREASED USE OF COMPENSATORY STRATEGIES FROM 0% TO 100% WITHIN [address] STG: PATIENT WILL COMPLETE SWALLOW EXERCISES FOR IMPROVED SAFETY OF ORAL AND PHARYNGEAL STAGE OF SWALLOW FROM MIN-MOD TO MIN WITHIN [address] LTG: PATIENT/CAREGIVER WILL BE ABLE TO RETURN DEMONSTRATE THERAPEUTIC EXERCISES FOR IMPROVED SAFETY OF ORAL AND PHARYNGEAL STAGE OF SWALLOW FROM MIN-MOD TO MOD I WITHIN [address]G: PATIENT WILL COMPLETE RMST ON LEVEL 2/2 [address] LTG: PATIENT WILL RETURN DEMONSTRATE INDEPENDENT USE OF RESPIRATORY BREATHER BY END OF EPISODE. STG: PATIENT/CAREGIVER WILL DEMONSTRATE ADHERENCE TO FALL REDUCTION SELF MANAGEMENT TO MINIMIZE FALL RISK BY END OF EPISODE. ST GOAL: PATIENTS WEIGHT WILL REMAIN WELL CONTROLLED THROUGHOUT EPISODE OF CARE. ST GOAL: PATIENT WILL MAINTAIN OXYGEN SATURATION WITHIN PHYSICIAN ORDERED PARAMETERS THROUGHOUT EPISODE OF CARE ST GOAL: PATIENT/CAREGIVER WILL DEMONSTRATE UNDERSTANDING OF OXYGEN SAFETY, CARE, AND MANAGEMENT BY END OF EPISODE AND PATIENT WILL MAINTAIN SAFE OXYGEN LEVELS DURING ACTIVITY. ST GOAL: PATIENT / CAREGIVER WILL VERBALIZE UNDERSTANDING OF PAIN MANAGEMENT BY END OF EPISODE. Reason for Visit MINIMUM ASSIST WITH TRANSFER/AMBULATION/ADLS Encounters Start Date/Time End Date/Time Encounter Type Admission Type Attending [facility] Care Department Encounter ID Discharge Date Discharge Status Discharge Condition Discharge Reason Percent Goals Met 2023-07-13 00:00:00 2023-09-06 00:00:00 Outpatient LISET LEWIS [facility] [id number] 2023-09-06 00:00:00 DISCHARGE TO HOME OR SELF CARE MINIMUM ASSIST WITH TRANSFER/A MBULATION/ ADLS HH OR PAL- GOALS MET 97.78
--- NOTE | 2024-04-01 16:29 | ED_ITS ---
HPI - General Adult General Chief complaint: Abdominal Pain Stated complaint: RLQ PAIN PER EMS Time Seen by Provider: 04/01/24 16:01 Source: patient, RN notes reviewed and old records reviewed Mode of arrival: EMS Limitations: no limitations History of Present Illness ED Provider: Jarvis VAUGHAN narrative: 73-year-old female with past medical history significant for obesity, hypertension, CHF, obesity hypoventilation syndrome, diverticulitis presents for evaluation of abdominal pain. Patient reports abdominal pain started yesterday. Pain is in her right lower abdomen. She states the pain waxes and wanes his intensity, currently her pain is 0/10. At worst it was 10/10. She reports some nausea with no vomiting. She reports this feels similar to her previous episodes of diverticulitis. She has not had any diarrhea or bloody bowel movements. She is status post cholecystectomy and hysterectomy. On review of her medical history, she has had [address] scans this year Related Data Home Medications ?Medication ?Instructions ?Recorded ?Confirmed carvedilol 6.25 mg tablet 1 tab PO BIDWM 03/13/21 07/04/23 cetirizine 10 mg tablet 1 tab PO DAILY 03/13/21 07/04/23 ferrous sulfate 325 mg (65 mg 1 tab PO DAILY 03/13/21 07/04/23 iron) tablet levothyroxine 50 mcg tablet 1 tab PO DAILY@0600 03/13/21 07/04/23 magnesium oxide 400 mg (241.3 mg 1 tab PO DAILY 03/13/21 07/04/23 magnesium) tablet montelukast 10 mg tablet 1 tab PO BEDTIME 03/13/21 07/04/23 pregabalin 225 mg capsule 1 cap PO BID 03/13/21 07/04/23 atorvastatin 10 mg tablet 1 tab PO BEDTIME 03/14/21 07/04/23 dexlansoprazole 60 mg 60 mg PO DAILY@0630 06/07/21 07/04/23 capsule,biphase delayed release (Dexilant) losartan 25 mg tablet 25 mg PO DAILY 06/07/21 07/04/23 furosemide 40 mg tablet 80 mg PO DAILY 10/02/22 07/04/23 dicyclomine 10 mg capsule 10 mg PO TID PRN Abdominal Pain 06/02/23 07/04/23 fluticasone 250 mcg-salmeterol 50 1 ea inhalation BID 06/02/23 07/04/23 mcg/dose blistr powdr for inhalation (Advair Diskus) methylcellulose (laxative) 500 mg 500 mg PO DAILY 07/04/23 07/04/23 tablet (Citrucel) ondansetron HCl 4 mg tablet 4 mg PO Q8H PRN Nausea 07/04/23 07/04/23 Previous Rx's ?Medication ?Instructions ?Recorded tramadol 25 mg tablet 25 mg PO Q6H PRN pain (scale score 07/09/23 7-10) #10 tabs azithromycin 250 mg tablet See Rx Instructions PO .COMPLEX #6 02/17/24 tabs doxycycline hyclate 100 mg tablet 100 mg PO BID BRONCHITIS 7 days 03/10/24 #14 tabs Allergies Allergy/AdvReac Type Severity Reaction Status Date / Time celecoxib [From CELEBREX] Allergy Unknown RASH Verified 04/01/24 15:12 Latex, Natural Rubber Allergy Unknown Rash Verified 02/17/24 16:15 ibuprofen [IBUPROFEN] AdvReac Intermediate RASH Verified 02/17/24 16:15 Review of Systems 2 Constitutional: Constitutional: Denies body ache(s), Denies chills, Denies fever(s) and Denies headache(s) Eyes: Eyes: Denies blurry vision ENT: Denies vertigo, Denies dizziness and Denies headache(s) Cardiovascular: Cardiovascular: Denies chest pain and Denies dyspnea Respiratory: Respiratory: Denies cough and Denies dyspnea Gastrointestinal: Gastrointestinal: Reports abdominal pain, Denies hematochezia, Denies diarrhea, Denies loose stools, Reports nausea and Denies vomiting Musculoskeletal: Musculoskeletal: Denies back pain Integumentary/Breasts: Skin/Breast: Denies rash Neurologic: Denies vertigo, Denies dizziness and Denies headache(s) [facility] Past Medical History Medical History IBS (irritable bowel syndrome) Respiratory failure Interstitial lung disease Seasonal allergies Diarrhea Neuropathy Asthma Hypercholesteremia GERD (gastroesophageal reflux disease) Thyroid activity decreased Hypertension Surgical History Hx of cataract surgery H/O: hysterectomy History of cholecystectomy Family History Family History Mother Asthma Father No problems noted. 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 Housing: Apartment Housing Other:: [employer] Do you presently have visiting nurse or other home services: Yes (Home health aide M,Wed,Fri, few hours ; no RN involvement) Unable to assess alcohol history related to: Unknown Alcohol intake: never Patient Tobacco Use Status: Never used Tobacco Smoked in Last 30 Days: No e-Cigarette/Vaping Use: Never Used Second Hand Smoke Exposure: No Use of substances other than those prescribed or required for medical reasons: No Advance Directives: Yes Advance Directives on File: Yes Advance Directives Date on File: 07/05/23 service: No Current occupational status: retired Physical Exam ED Vital Signs: Vital Signs - 24 hr 04/01/24 15:10 04/01/24 18:00 Temperature 98.0 F 98.3 F Pulse Rate 62 69 Respiratory Rate 17 15 Blood Pressure 129/54 L 122/38 L Pulse Oximetry 100 100 Oxygen Delivery Method Nasal Cannula Room Air BMI result Body Mass Index 54.7 Const General: healthy appearing, comfortable, no acute distress, alert and awake Nutritional Appearance: well nourished Orientation/consciousness: patient oriented x3 HENMT Head: Yes normocephalic and Yes atraumatic Eyes Eyelids: Yes eyelids normal Conjunctivae: conjunctivae normal Sclerae: sclerae normal Corneas: corneas normal Pupils: Equal, round and reactive pupils present EOM: EOMs intact bilaterally Neck Neck: Yes full ROM Resp Effort & Inspection: normal respiratory effort, able to speak in complete sentences and not labored Cardio Rate: regular rate Rhythm: regular rhythm GI Inspection: No distended Palpation (GI): Soft to palpation, not firm, nontender, no guarding and not rigid Skin General skin exam: elasticity normal Neuro General: patient oriented x3 Cranial nerves: Yes Equal, round and reactive pupils present and Yes Bilaterally intact EOM present Cognition (Neuro): normal cognition Extrem Other: Moving all extremities well without any obvious deformities Course Reevaluation(s) Reevaluation #1: Patient's workup largely unremarkable, no significant lab abnormalities, urinalysis negative, her exam remains benign. The patient denies any abdominal pain. We will discharge the patient home at this time, she was given return precautions. I suspect her pain may have been related to obstipation or constipation. There was no evidence of obstruction, no evidence of infectious process. Time: 18:44 Medical Decision Making Medical Decision Making MDM Narrative: 73-year-old female with past medical history as documented above presents for evaluation abdominal pain. Her pain is intermittent, currently she has no pain. She is morbidly obese. Her physical exam is reassuring, she has no abdominal tenderness on exam. I reviewed her recent CT scans and they occasionally show mild diverticulitis. I have a very low suspicion for surgical abdomen at this time. We will check labs, urinalysis and defer imaging at this time given that she is currently pain-free in his well-appearing Differential Diagnosis Differential Diagnoses: The differential diagnosis associated with the presentation includes Diverticulitis Acute appendicitis Abdominal pain Constipation Obstructive uropathy Lab Data 04/01/24 16:31 04/01/24 16:56 Labs: Lab Results 04/01/24 04/01/24 04/01/24 Range/Units 16:31 16:56 18:13 WBC 8.5 (4.8-10.8) X10*3/uL RBC 4.22 (4.20-5.50) X10*6/uL Hgb 12.1 (12.0-16.0) g/dl Hct 37.3 (37.0-47.0) % MCV 88.4 (80.0-98.0) fL MCH 28.7 (27.0-33.0) pg MCHC 32.4 (31.0-35.0) g/dl RDW 13.7 (11.0-16.0) % Plt Count 217 (160-400) X10*3/uL MPV 10.8 (9.4-12.3) fL Immature Gran % (Auto) 0.2 (0.0-0.4) % Neut % (Auto) 72.0 (45-73) % Lymph % (Auto) 16.8 L (20-40) % Hitchcock % (Auto) 7.3 (2-11) % Eos % (Auto) 3.1 (0-4) % Baso % (Auto) 0.6 (0-2) % Lymph # (Auto) 1.4 (1.2-4.9) X10*3/uL Hitchcock # (Auto) 0.6 (0.1-1.2) X10*3/uL Eos # (Auto) 0.3 (0.0-0.4) X10*3/uL Baso # (Auto) 0.1 (0.0-0.2) X10*3/uL Abs Immat Gran (auto) 0.02 (0.00-0.03) X10*3/uL Absolute Neuts (auto) 6.1 (2.0-8.3) x10*3/uL Absolute Nucleated RBC 0.000 (0.0-0.012) X10*3/uL Nucleated RBC % (auto) 0.0 (0.0-0.2) /100WBC Sodium 142 (135-145) mmol/L Potassium 4.2 (3.3-5.1) mmol/L Chloride 101 (96-108) mmol/L Carbon Dioxide 36 H (22-29) mmol/L Anion Gap 9 L (12-20) BUN 25 H (9-16) mg/dL Creatinine 1.21 (0.5-1.4) mg/dL Estim Creat Clear Calc 63.2 Estimated GFR 44 Random Glucose 100 (60-115) mg/dL Calcium 8.5 D (8.4-10.2) mg/dL Total Bilirubin 0.7 (0.0-1.0) mg/dL AST 21 (5-31) U/L ALT 11 (0-31) U/L Alkaline Phosphatase 81 (39-117) U/L Total Protein 6.7 (6.5-8.0) g/dL Albumin 3.7 (3.5-5.0) g/dL Lipase 21 (8-78) U/L Urine Color Yellow Urine Appearance Clear Urine pH 7.0 (5.0-9.0) Ur Specific [place] 1.010 (1.005-1.025) Urine Protein Negative (Neg-Trace) mg/dL Urine Glucose (UA) Negative (Negative) mg/dL Urine Ketones Negative (Negative) mg/dL Urine Blood Negative (Negative) Urine Nitrite Negative (Negative) Ur Leukocyte Esterase Negative (Negative) Urine RBC 0-2 (0-2) /HPF Urine WBC 0-5 (0-5) /HPF Ur Squamous Epith Cells 0-2 (0-2) /HPF Urine Bacteria None Seen (None Seen) Hyaline Casts 0-2 (0-2) /LPF Discharge Plan Discharge Clinical Impression: Abdominal pain Patient Disposition: Home, Self-Care Instructions: Abdominal Pain (ED) Additional Instructions: Your workup in the ER today was reassuring. This includes your blood work, urinalysis. There are no signs of infection. You may want to do a liquid diet tomorrow in case there is mild diverticulitis Return for new or worsening symptoms, especially severe abdominal pain or fever Prescriptions: No Action doxycycline hyclate 100 mg tablet 100 mg PO BID 7 Days Qty: 14 0RF atorvastatin 10 mg tablet 1 tab PO BEDTIME carvedilol 6.25 mg tablet 1 tab PO BIDWM cetirizine 10 mg tablet 1 tab PO DAILY magnesium oxide 400 mg (241.3 mg magnesium) tablet 1 tab PO DAILY levothyroxine 50 mcg tablet 1 tab PO DAILY@0600 ferrous sulfate 325 mg (65 mg iron) tablet 1 tab PO DAILY montelukast 10 mg tablet 1 tab PO BEDTIME pregabalin 225 mg capsule 1 cap PO BID furosemide 40 mg tablet 80 mg PO DAILY azithromycin 250 mg tablet See Rx Instructions .ROUTE .COMPLEX Qty: 6 0RF Rx Instructions: For 250 mg dose pack: take 500 mg today (day 1), then 250 mg for 4 days (days 2-5) fluticasone propion-salmeterol [Advair Diskus] 250-50 mcg/dose blister with device 1 ea inhalation BID dicyclomine 10 mg capsule 10 mg PO TID PRN (Reason: Abdominal Pain) ondansetron HCl 4 mg tablet 4 mg PO Q8H PRN (Reason: Nausea) Citrucel 500 mg tablet 500 mg PO DAILY tramadol 25 mg tablet 25 mg PO Q6H PRN (Reason: pain (scale score 7-10)) Qty: 10 0RF losartan 25 mg tablet 25 mg PO DAILY dexlansoprazole [Dexilant] 60 mg capsule,biphase delayed releas 60 mg PO DAILY@0630 Print Language: Icelandic
[2024-04-01 16:34] LABS: MANUAL DIFF FLAG NO
[2024-04-01 16:46] LABS: Basophils Absolute Auto 0.1 X10*3/uL (0.0-0.2); Basophils Percent Auto 0.6 % (0-2); Eosinophils Absolute Auto 0.3 X10*3/uL (0.0-0.4); Eosinophils Percent Auto 3.1 % (0-4); Hematocrit 37.3 % (37.0-47.0); Hemoglobin 12.1 g/dl (12.0-16.0); Imm Gran Abs Auto 0.02 X10*3/uL (0.00-0.03); Imm Gran Pct Auto 0.2 % (0.0-0.4); Lymphocytes Absolute Auto 1.4 X10*3/uL (1.2-4.9); Lymphocytes Percent Auto 16.8 % (20-40); Mean Corpuscular HGB Conc 32.4 g/dl (31.0-35.0); Mean Corpuscular Hemoglobin 28.7 pg (27.0-33.0); Mean Corpuscular Volume 88.4 fL (80.0-98.0); Mean Platelet Volume 10.8 fL (9.4-12.3); Monocytes Absolute Auto 0.6 X10*3/uL (0.1-1.2); Monocytes Percent Auto 7.3 % (2-11); Neutrophils Absolute Auto 6.1 x10*3/uL (2.0-8.3); Platelet Count 217 X10*3/uL (160-400); Red Blood Count 4.22 X10*6/uL (4.20-5.50); Red Cell Distribution Width 13.7 % (11.0-16.0); White Blood Count 8.5 X10*3/uL (4.8-10.8)
[2024-04-01 17:19] LABS: Alanine Aminotransferase 11 U/L (0-31); Albumin Level 3.7 g/dL (3.5-5.0); Alkaline Phosphatase 81 U/L (39-117); Anion Gap 9 (12-20); Aspartate Amino Transferase 21 U/L (5-31); Bilirubin Total 0.7 mg/dL (0.0-1.0); Blood Urea Nitrogen 25 mg/dL (9-16); Calcium 8.5 mg/dL (8.4-10.2); Carbon Dioxide 36 mmol/L (22-29); Chloride 101 mmol/L (96-108); Creatinine Clr Calc Pharmacy 63.2; Estimated Glomerular Filt Rate 44; Glucose Random 100 mg/dL (60-115); Lipase 21 U/L (8-78); Potassium 4.2 mmol/L (3.3-5.1); Sodium 142 mmol/L (135-145); Total Protein 6.7 g/dL (6.5-8.0)
[2024-04-01 18:00] VITALS: BP 122/38; PULSE 69; RESP 15; TEMP 36.8; O2SAT 100
[2024-04-01 18:29] LABS: Appearance Urine Clear; Color Urine Yellow; Glucose Urine UA Negative (Negative); Leukocyte Esterase Urine Negative (Negative); Nitrite Urine Negative (Negative); Urine Blood Negative (Negative); Urine Ketones Negative (Negative); Urine Protein Negative (Neg-Trace)
[2024-04-01 18:31] LABS: Bacteria Urine None Seen (None Seen); Hyaline Casts Urine 0-2 /LPF (0-2); RBC Urine 0-2 /HPF (0-2); Squamous Epithelial Cell Urine 0-2 /HPF (0-2); WBC Urine 0-5 /HPF (0-5)
[2024-04-01 18:48] VITALS: BP 122/38; PULSE 69; RESP 15; TEMP 36.8; O2SAT 100
[2024-04-01 19:32] VITALS: BP 137/59; PULSE 63; RESP 14; TEMP 36.6; O2SAT 100
== END 2024-04-01 20:12 | disposition home or self-care (01) ==
PROVIDERS: Physician Assistant; Emergency Provider Emergency Medicine; PCP Internal Medicine
DX: R10.31 Right lower quadrant pain (principal); Z79.899 Other long term (current) drug therapy
CPT/HCPCS: 36415; 80053; 81001; 83690; 85025; 99283; 99284

== ENCOUNTER 2024-07-16 12:26 | Outpatient (AMB) | payer MEDICARE, MEDICAID, SELFPAY ==
[2024-07-16 12:33] VITALS: BP 134/76; PULSE 58; RESP 20; TEMP 36.2; O2SAT 99; BMI 51.6
--- NOTE | 2024-07-16 12:33 | A.OFFPC_ITS ---
Vital Signs 07/16/24 12:33 Height 5 ft 5 in Weight 310 lb BMI 51.6 BMI Reason not done Patient refused/unable BP 134/76 Blood Pressure Location Lt brachial Position Supine Respiration 20 Pulse 58 Pulse Source Pulse Oximeter Temp 97.1 F Temp Source Temporal Artery Scan Pulse Oximetry (%) 99 Oxygen Delivery Method Nasal Cannula Oxygen Flow Rate 3 Comment Pt stated weight Intake Visit Reasons: establish care Intake Note: Patient is a new patient here to establish care. Transferring care from [facility] on [address] [facility] in [place], [place]. Medical records have not been requested and have not been received; Authorization to Release Medical Information Form completed at this visit. Arm Rest Builder Required: No Accompanied by: EMT's Allergies celecoxib [From CELEBREX] Allergy (Unknown, Verified 07/16/24 12:58) RASH Latex, Natural Rubber Allergy (Unknown, Verified 07/16/24 12:58) Rash ibuprofen [IBUPROFEN] Adverse Reaction (Intermediate, Verified 07/16/24 12:58) RASH Medication List - Last Reconciled 07/16/24 by Hilda Lawrence MD atorvastatin 1 tab PO BEDTIME carvedilol 1 tab PO BIDWM dexlansoprazole (Dexilant) 60 mg PO DAILY@0630 dicyclomine 10 mg PO TID PRN ferrous sulfate 1 tab PO DAILY fexofenadine 180 mg PO DAILY furosemide 80 mg PO DAILY L.rhamnosus-B.animalis 3 billion cell (VazquezNaehas) caps PO levothyroxine 1 tab PO DAILY@0600 losartan 25 mg PO DAILY magnesium oxide 1 tab PO DAILY methylcellulose (laxative) (Citrucel) 500 mg PO DAILY montelukast 1 tab PO BEDTIME ondansetron HCl 4 mg PO Q8H PRN pregabalin 1 cap PO BID tramadol 25 mg PO Q6H PRN triamcinolone acetonide 2 sprays intranasal DAILY Tobacco use date assessed: 07/16/24 Fall risk assessment: No Falls in past year Last assessed Fall Risk: 07/16/24 Dental Screening Dental Screen Date: 07/16/24 Did you have a dental visit in the last 12 months?: No Did you have a dental problem in the last 6 months where you did not have access to dental care?: No Was dental information given to patient?: No HPI HPI Comments History of Present Illness Details The patient is a 73-year-old female presenting with a need for follow-up regarding essential hypertension and interstitial lung disease. She has had multiple recent and long-standing health issues. Most recently, she was hospitalized in March for abdominal pain, but a CT scan at the time showed no major findings. Currently, the patient uses oxygen therapy at 3 liters per minute due to her interstitial lung disease and has impaired ambulation that requires a walker. Past procedures include cataract surgery, a hysterectomy, and a cholecystectomy. Her treatment plan includes managing hypertension, hyperlipidemia, and hypothyroidism with medications like atorvastatin and levothyroxine. The patient denies any tobacco or alcohol use and lives with a forest and conservation worker who aids in her care. Her pulmonary condition is now managed by Dr. Mancilla. The patient's family history includes her mother passing from an unknown condition and her father also with no known health issues recorded. [facility] Medical History (Updated 07/16/24 @ 15:51 by Hilda Lawrence MD) Aspiration pneumonia Acute hypercapnic respiratory failure Acute respiratory failure with hypoxia and hypercapnia IBS (irritable bowel syndrome) Respiratory failure Interstitial lung disease Seasonal allergies Diarrhea Neuropathy Asthma Hypercholesteremia GERD (gastroesophageal reflux disease) Thyroid activity decreased Hypertension Surgical History Hx of cataract surgery H/O: hysterectomy History of cholecystectomy Family History (Updated 07/16/24 @ 13:06 by Hilda Lawrence MD) Mother Asthma Father No problems noted. Social History Household Members: Significant Other Household Members Other:: forest and conservation worker Housing: Apartment Housing Other:: [place] Do you presently have visiting nurse or other home services: Yes (Home health aide M,Wed,Fri, few hours ; no RN involvement) Unable to assess alcohol history related to: Unknown Alcohol intake: never Patient Tobacco Use Status: Never used Tobacco e-Cigarette/Vaping Use: Never Used Second Hand Smoke Exposure: No Advance Directives Date on File: 07/05/23 service: No Current occupational status: retired Cognitive needs: Yes (Walker) Hearing needs: Yes (Hearing aids) Vision needs: Yes (Glasses) Questionnaire Thrive Questionnaire Date Thrive assessed: 07/16/24 I am a: Patient What is your living situation today?: I have a steady place to live Within the past 12 months, did the food you bought not last and you didn't have the money to get more?: Never true Within the past 12 months, did you worry whether your food would run out before you got money to buy more?: Never true Do you have trouble paying for medicines?: No Do you have trouble getting transportation to medical appointments?: No Do you have trouble paying your heating and electricity bill?: No Do you have trouble taking care of your child, family member or friend?: No Do you have trouble with day-to-day activities such as bathing, preparing meals, shopping, managing finances, etc.?: No Are you currently unemployed and looking for a job?: No Are you interested in more education?: No Please select the resources that you would like help with: None Currently or been in a relationship where the following occur: No concerns reported THRIVE Score: 0 AUDIT C Alcohol Use Questionnaire (AUDIT-C) 1. How often do you have a drink containing alcohol?: Never 3. How often do you have six or more drinks on one occasion?: Never Total Score: 0 Score Reviewed/Action Taken: No Review of Systems Const All systems reviewed & are unremarkable except as noted in HPI and below Card Denies chest pain at rest, Denies chest pain with activity, Denies edema, Denies irregular heart rhythm, Denies claudication, Denies dyspnea, Denies dyspnea on exertion, Denies orthopnea, Denies paroxysmal nocturnal dyspnea and Denies slow heart rate Resp Denies cough, Denies dyspnea and Denies dyspnea on exertion GI Denies abdominal pain, Denies change in bowel habits, Denies excessive flatus, Denies nausea and Denies vomiting Physical exam (Primary Care) Vital Signs: Last Vital Signs Temp 97.1 F 07/16/24 12:33 Pulse 58 07/16/24 12:33 Resp 20 07/16/24 12:33 BP 134/76 07/16/24 12:33 Pulse Ox 99 07/16/24 12:33 Oxygen Delivery Method Nasal Cannula 07/16/24 12:33 Oxygen Flow Rate 4 07/16/24 12:33 BMI result Body Mass Index 51.6 BMI Assessment/Plan discussion: High BMI High, discussed plan: lifestyle, weight reduction, dietary and physical activity Tobacco/Smoking Status: Tobacco use Status Tobacco use date assessed 07/16/24 07/16/24 12:54 Patient Tobacco Use Status Never used Tobacco 07/16/24 12:34 e-Cigarette/Vaping Use Never Used 07/16/24 12:34 Thrive Assessment: Date of Thrive Assessment Date Thrive assessed 07/16/24 07/16/24 12:54 Currently or been in a relationship where the following occur: No concerns reported Const Limitations: other limitations (stretcher) Resp Effort & Inspection: normal respiratory effort Auscultation: clear to auscultation bilaterally Cardio Jugular venous distension: no JVD Rate: regular rate Rhythm: regular rhythm Heart sounds: S1 normal heart sound present and S2 normal heart sound present Extrem General: Yes full ROM Coding Level of Care Code Est Pt Level 4 (45580) Complex EM visit Add On G2211 Diagnoses Respiratory failure J96.90 Hypertension I10 Morbid obesity E66.01 Interstitial lung disease J84.9 Obesity hypoventilation syndrome E66.2 Thyroid activity decreased E03.9 GERD (gastroesophageal reflux disease) K21.9 Hypercholesteremia E78.00 Time Spent (min) 25 Assessment & Plan Assessment & Plan (1) Respiratory failure: Comment: PATIENT HAS CHRONIC HYPOXEMIC AND HYPERCAPNIC RESPIRATORY FAILURE. MAINLY SECONDARY TO MORBID OBESITY, RESTRICTIVE LUNG DISEASE AND UN-TREATED SLEEP APNEA. Code(s): J96.90 - Respiratory failure, unspecified, unspecified whether with hypoxia or hypercapnia Category: Medical (2) Hypertension: Code(s): I10 - Essential (primary) hypertension Category: Medical (3) Morbid obesity: Comment: THIS IS A CHRONIC PROBLEM, SHE IS TRYING TO LIMIT HER CALORIES INTAKE, CANNOT DO MUCH EXERCISE. NOT MUCH POTENTIAL FOR ANY SIGNIFICANT WEIGHT LOSS. Code(s): E66.01 - Morbid (severe) obesity due to excess calories Category: Medical (4) Interstitial lung disease: Comment: SHE HAD ACUTE INTERSTITIAL LUNG DISEASE, FOLLOWING COVID INFECTION. LAST CHEST X-RAY IN NOVEMBER 2020, SHOWED THAT ALL INTERSTITIAL LUNG DISEASE HAD RESOLVED. She is a candidate for severe restrictive pulmonary disorder due to her morbid obesity. Advised to keep on doing deep breathing exercises. 3 to 4 times a day Code(s): J84.9 - Interstitial pulmonary disease, unspecified Category: Medical (5) Obesity hypoventilation syndrome: Comment: PATIENT HAS CHRONIC SLEEP APNEA/HYPOVENTILATION SYNDROME. UNFORTUNATELY UNABLE TO USE THE CPAP OR BIPAP. Code(s): E66.2 - Morbid (severe) obesity with alveolar hypoventilation Category: Medical (6) Thyroid activity decreased: Code(s): E03.9 - Hypothyroidism, unspecified Category: Medical (7) GERD (gastroesophageal reflux disease): Code(s): K21.9 - Gastro-esophageal reflux disease without esophagitis Category: Medical (8) Hypercholesteremia: Code(s): E78.00 - Pure hypercholesterolemia, unspecified Category: Medical Plan The patient will maintain her current treatment regimen, including losartan for hypertension, and continuous monitoring with Dr. Mancilla for interstitial lung disease. Her current dosage of levothyroxine for hypothyroidism and atorvastatin for hyperlipidemia will be maintained. GERD management with lansoprazole and iron deficiency anemia with ferrous sulfate will continue. Magnesium oxide will be used for migraine prevention. She will continue using the walker, and reconsideration of a power wheelchair will be evaluated. Avoidance of Celebrex, latex, and ibuprofen due to known allergies is necessary. She will undergo fasting blood work, and regular follow-ups are advised to monitor her condition and address any medication side effects. Patient was informed and verbally consented to the use of an ambient scribe for clinic note documentation during this visit. During the visit, I discussed with the patient her ongoing management plan for h ypertension, interstitial lung disease, and other chronic conditions. We reviewed the benefits of her current treatments, including the management of her blood pressure and lung disease. The limitations of her mobility were acknowledged, and we discussed her comfort and safety with using a walker. I highlighted the importance of avoiding known allergens. We agreed on a follow-up of her condition with regular blood tests to monitor disease progression and adjust treatments as needed. I encouraged continued follow-up with Dr. Mancilla to optimize her pulmonary care. Patient Instructions: - Continue taking all current medications as prescribed. - Use oxygen therapy at 3 liters per minute as directed. - Utilize the walker for mobility as needed. - Avoid Celebrex, latex, and ibuprofen because of allergies. - Schedule for fasting blood work at your earliest convenience. - Follow up with Dr. Mancilla for pulmonary care regularly. - Reach out for a healthcare provider if you experience any new or worsening symptoms.
--- OUTSIDE RECORDS SUMMARY | 2024-07-16 14:25 | XMS_ITS | Clinical Summary ---
Author Organization [facility] Address [address] [place] [address] Phone Care Team Providers Care Client Reporting Associate Name Role Phone Bryanna Gama MD Primary Care Provider [phone] Allergies Active Allergy Reactions Criticality Noted Date Comments Celecoxib Rash Low 06/23/2020 Ibuprofen Rash Low 06/23/2020 Latex 10/04/2020 Other 10/04/2020 Medications atorvastatin (LIPITOR) 10 MG tablet Take 10 mg by mouth 1 (one) time each day 1 Active carvedilol (COREG) 6.25 MG tablet Take 6.25 mg by mouth 1 (one) time each day 1 Active cetirizine (ZyrTEC) 10 MG tablet TAKE TWO TABLETS BY MOUTH EVERY DAY AT BEDTIME 1 Active ketoconazole (NIZORAL) 2 % cream APPLY LOCALLY TWICE A DAY DIRECTED 1 Active levothyroxine (SYNTHROID, LEVOTHROID) 50 MCG tablet Take 50 mcg by mouth 1 (one) time each day 1 Active amoxicillin-cla vulanate (AUGMENTIN) 875-125 MG per tablet Take 1 tablet by mouth 2 (two) times a day 1 Active Nasal Allergy 24 Hour 55 MCG/ACT nasal inhaler USE 2 SPRAYS IN EACH NOSTRIL DAILY 1 Active montelukast (SINGULAIR) 10 MG tablet Take 10 mg by mouth every night Active triamcinolone (KENALOG) 0.147 MG/GM topical spray Apply topically 2 (two) times a day Active Acetaminophen-P amabrom 500-25 MG tablet Take by mouth Active dexlansoprazole (DEXILANT) [address] capsule Take 60 mg by mouth 1 (one) time each day Do not crush or chew. Active diphenhydrAMINE (BENADRYL) 25 MG tablet Take 25 mg by mouth every 6 (six) hours if needed for itching Active ferrous sulfate 325 (65 Fe) MG tablet Take 325 mg by mouth 1 (one) time each day with breakfast Active Magnesium 400 MG tablet Take by mouth Active pregabalin (LYRICA) 225 MG capsule Take 225 mg by mouth in the morning and 225 mg in the evening. Active losartan (COZAAR) 25 MG tablet Take 1 tablet (25 mg total) by mouth 1 (one) time each day 30 tablet 2 3 Active losartan (COZAAR) 25 MG tablet TAKE ONE TABLET BY MOUTH EVERY DAY ^1R4 30 tablet 5 4 Active furosemide (LASIX) 40 MG tablet TAKE TWO TABLETS BY MOUTH TWICE A DAY (PACKAGE 2 TABLETS DAILY) ^2R1 180 tablet 5 4 Active Active Problems Problem Noted Date Diagnosed Date Stage 3a chronic kidney disease 05/16/2023 Edema 10/17/2022 Stage 3b chronic kidney disease 08/17/2021 Escherichia coli as the caus e of disease classified elsewhere 03/28/2021 Dysphagia, oral phase 03/28/2021 Difficulty in walking 03/28/2021 COVID-19 03/28/2021 Chronic obstructive pulmonary disease 03/28/2021 Hyperkalemia 03/28/2021 Hyperventilation 03/28/2021 Hypo-osmolality and hyponatremia 03/28/2021 Other specified bacterial ag ent as the cause of diseases classified elsewhere 03/28/2021 Polyneuropathy 03/28/2021 Respiratory bronchiolitis interstitial lung dise ase 03/28/2021 Urinary tract infection 03/28/2021 Respiratory failure with hypoxia 10/04/2020 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 Pneumonitis due to inhalation of food and vomit 10/04/2020 Other asthma 10/04/2020 Obstructive sleep apnea 10/04/2020 Muscle wasting and atrophy, not elsewhere classified, lower leg 10/04/2020 Hallucination 10/04/2020 Gastro-esophageal reflux disease without esophag itis 10/04/2020 Dependence on supplemental oxygen 10/04/2020 Proteinuria 06/27/2020 Obesity 06/27/2020 Hyperlipidemia 06/27/2020 Essential (primary) hypertension 06/27/2020 Immunizations Name Administration Dates Next Due Influenza Split High Dose Pr eservative Free IM 01/30/2023,12/22/2021,02/25/2021,12/08 Influenza TIV (IM) 01/05/2020 Influenza, Unspecified 01/05/2020,2017,12/04/2011,12/22,12/30/2009 PPD Test 04/11/2021,10/05/2020 Pfizer SARS-COV-2 04/06/2023,06/14/2021,05/20/19 Pneumococcal Conjugate 13-Valent 10/19/2017,03/09 Pneumococcal Polysaccharide 11/20/2019 Shingrix 10/19/2017,07/31/2017 Family History Medical History Relation Comments Diabetes Brother Diabetes Mother Hypertension Mother Relation Status Comments Brother Mother Social History Tobacco Use Types Packs/Day Years Used Date Smoking Tobacco: Never Assessed Comments Unknown Sex and Gender Information Value Date Recorded Sex Assigned at Not on file Legal Sex Female 4:58 PM EST Gender Identity Not on file Sexual Orientation Not on file Last Filed Vital Signs Vital Sign Reading Time Taken Comments Blood Pressure 129/60 05/16/2023 1:50 PM EST Pulse 61 05/16/2023 1:50 PM EST Temperature - - Respiratory Rate - - Oxygen Saturation 99% 05/16/2023 1:50 PM EST Inhaled Oxygen Concentration - - Weight 156 kg (343 lb 9.6 oz) 08/13/2020 4:03 PM EDT Height - - Body Mass Index - - Plan of Treatment Upcoming Encounters Date Type Department Care Team (Late st Contact Info) Description 08/13/2024 3:15 PM EDT Office Visit [facility] [address] [address] Butch Sharpe MD [address] [address] Health Maintenance Due Date Last Done Comments Breast Cancer Screening 1950 Colorectal Cancer Screening: Annual FOBT 2001 Colorectal Cancer Screening: Colonoscopy 2001 Colorectal Cancer Screening: Sigmoidoscopy 2001 Influenza Vaccine (Season Ended) 2024 01/30/2023, 12/22/2021, 02/25/2021, Additional history exists Pneumococcal Vaccine: 65+ Years Completed 11/20/2019, 10/19/2017, 03/23/2015 Hepatitis B Vaccine Aged Out No longe r eligible based on patient's age to complete this topic Insurance [place]IC[place]ID [place] Care Teams Client Reporting Associate Relationship Specialty Start Date End Date Bryanna Gama MD [address] [facility] [address] [place] [address] PCP - General Internal Medicine 10/27/20
--- OUTSIDE RECORDS SUMMARY | 2024-07-16 14:25 | XMS_ITS | Clinical Summary ---
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 Active carvediloL (COREG) 6.25 mg tablet Take 1 tablet (6.25 mg total) by mouth. Active fluticasone-salm eterol (Advair Diskus) 250-50 mcg/dose diskus inhaler Active furosemide (LASIX) 40 mg tablet TAKE TWO TABLETS BY MOUTH TWICE A DAY (PACKAGE 2 TABLETS DAILY) ^2R1 024 Active losartan (COZAAR) 25 mg tablet Take 1 tablet (25 mg total) by mouth 1 (one) time each day. Active montelukast (SINGULAIR) 10 mg tablet Take 1 tablet (10 mg total) by mouth. Active pregabalin (LYRICA) 225 mg capsule Take 1 capsule (225 mg total) by mouth 2 (two) times a day. Active psyllium husk, with sugar, (Fiber, psyllium husk-sugar,) 3.4 gram/7 gram powder Take 1 Dose by mouth. Active calcium polycarbophil (FIBER-TABS ORAL) Take 1 capsule by mouth 1 (one) time each day. Active polyethylene glycol (GoLYTELY) 236-22.74-6.74 -5.86 gram solution Take 240 mL by mouth once for 1 dose. May substitue for any PEG. Active polyethylene glycol (Golytely) 236-22.74-6.74 -5.86 gram solution Take 4L by mouth once for one dose. May substitue any PEG. Starting at 6PM the night before your procedure drink 1 8oz glasses at your own pace until you complete half of the gallon. Finish 2nd half of the gallon 5 hours before your procedure. 4000 mL Active CitruceL 500 mg tablet TAKE ONE TABLET BY MOUTH EVERY DAY 30 tablet 3 Active senna (SENOKOT) 8.8 mg/5 mL syrup Take 5 mL by mouth 3 (three) times a day if needed for constipation. 240 mL 3 Active Additional Information Patient not taking.Reported on 07/09/2024 bisacodyL (DULCOLAX) 5 mg EC tablet Take 2 tablets by mouth right before beginning bowel prep. See instructions provided by the office 2 tablet Active polyethylene glycol (Golytely) 236-22.74-6.74 -5.86 gram solution Take 4L by mouth once for one dose. May substitue any PEG. Starting at 6PM the night before your procedure drink 1 8oz glasses at your own pace until you complete half of the gallon. Finish 2nd half of the gallon 5 hours before your procedure. 4000 mL Active fexofenadine (STEVE) 180 mg tablet Take 1 tablet (180 mg total) by mouth 1 (one) time each day. Active triamcinolone (NASACORT) 55 mcg nasal inhaler Administer 2 sprays into each nostril 1 (one) time each day. Active cholestyramine (QUESTRAN) 4 gram powder Take 1 packet (4 g total) by mouth 2 (two) times a day with meals. Dissolve in 8 oz of liquid and drink before a meal 60 packet 024 Active colestipoL (Colestid) 5 gram packet Take 5 g by mouth 2 (two) times a day. 300 g 3 025 2025 Active Additional Information Patient not taking.Reported on 07/09/2024 FeroSuL 325 mg (65 mg iron) tablet TAKE ONE TABLET BY MOUTH EVERY DAY ^1R1 30 tablet 3 025 Active levothyroxine (SYNTHROID, LEVOTHROID) 50 mcg tablet TAKE ONE TABLET BY MOUTH EVERY DAY ^1R1 30 tablet 3 025 Active dicyclomine (BENTYL) 10 mg capsule TAKE ONE CAPSULE BY MOUTH THREE TIMES A DAY NEEDED FOR DIARRHEA (VIAL) 90 capsule 3 025 Active polyethylene glycol (Golytely) 236-22.74-6.74 -5.86 gram solution Take 4L by mouth once for one dose. May substitue any PEG. Starting at 6PM the night before your procedure drink 1 8oz glasses at your own pace until you complete half of the gallon. Finish 2nd half of the gallon 5 hours before your procedure. 4000 mL 025 Active bisacodyL (DULCOLAX) 5 mg EC tablet Take 2 tablets by mouth right before beginning bowel prep. See instructions provided by the office 2 tablet 025 Active Oxygen Therapy via Nasal Cannula (O2) gas Inhale 3 L/min by mouth continuously. Active magnesium oxide (MAG-OX) 400 mg (241.3 elemental magnesium) tablet TAKE ONE TABLET BY MOUTH DAILY ^1R4 30 tablet 2 025 Active dexlansoprazole (DEXILANT) [address] capsuleIndicatio ns:Chronic constipation TAKE 1 CAPSULE BY MOUTH EVERY DAY ^1R1 30 capsule 3 025 Active ondansetron (ZOFRAN) 4 mg tablet TAKE ONE TABLET BY MOUTH EVERY 8 HOURS NEEDED FOR NAUSEA (VIAL) 30 tablet 1 025 Active clotrimazole-bet amethasone (LOTRISONE) 1-0.05 % cream APPLY A THIN LAYER TO THE LESIONS UNDER THE BREASTS THREE TIMES A DAY (BULK) 30 g 3 025 Active clotrimazole-bet amethasone (LOTRISONE) 1-0.05 % cream APPLY A THIN LAYER TO THE LESIONS UNDER THE BREASTS THREE TIMES A DAY (BULK) 30 g 3 024 2024 Discontinued ondansetron (ZOFRAN) 4 mg tablet TAKE ONE TABLET BY MOUTH EVERY 8 HOURS NEEDED FOR NAUSEA (VIAL) 30 tablet 1 025 2024 Discontinued Active Problems Problem Noted Date Diagnosed Date At risk for falling 01/16/2024 Morbid obesity with BMI of 50.0-59.9, adult 12/2023 Stage 3a chronic kidney disease 05/16/2023 Shortness of breath 07/14/2022 Overview (01/16/2024): Last Assessment & Plan: Likely secondary to combination of oxygen dependent COPD and diastolic heart failure. Urinary incontinence, mixed 02/06/2022 Overview (01/16/2024): [facility] Supplemental oxygen dependent 02/06/2022 Overview (01/16/2024): 3 L 24/7 Tinea cruris 12/07/2020 Abnormal ECG 03/17/2020 Overview (01/16/2024): Abnormal ECG. Patient's resting ECG is abnormal with left axis and left ventricular hypertrophy. She says she did have an echocardiogram in the past we will see him get a copy of this. I did review her echocardiographic results with her. Last Assessment & Plan: Abnormal ECG. This patient's ECG did demonstrate left axis and left ventricular hypertrophy. She did have an echocardiogram she states in the past I see if I get a copy of this.I did review with the patient noted if she ever had any chest discomfort that lasted over 20 minutes call 911. Edema 03/17/2020 Overview (01/16/2024): Last Assessment & Plan: She likely has a degree of diastolic dysfunction but has a mild to moderate lower extremity edema in the setting of dietary indiscretions. She is already on diuretic therapy by her PCP. Her echocardiogram showed preserved ejection fraction with the rest of the left ventricle being poorly visualized due to body habitus. We did discuss her diet at length. She is eating a lot of foods with high salt content as stated above. We did go over healthier choices which I encouraged her to make. She is making good amounts of urine. I am not going to make any changes to her diuretic at this time. She should follow-up with her PCP. Functional diarrhea 02/03/2020 Persistent proteinuria 02/03/2020 Hypertension 12/21/2017 Overview (01/16/2024): Last Assessment & Plan: 123/59 on wrist cuff given inability to take this manually secondary to body habitus. Continue carvedilol, Lasix, and losartan. Hyperlipidemia 12/21/2017 Overview (01/16/2024): Last Assessment & Plan: Last lipid panel from May 2022. Total cholesterol 145, HDL 58, LDL 69. Continue statin therapy. Followed by PCP. Will be due for updated lipids. Anemia 12/21/2017 Hypothyroidism 07/17/2017 Prediabetes 07/17/2017 GERD (gastroesophageal reflux disease) 8 Irritable bowel syndrome 07/03/2017 Depression 02/28/2017 MISSY on CPAP 10/06/2016 Asthma 09/06/2016 Chronic constipation 02/21/2016 DJD (degenerative joint disease) of knee 016 Allergic rhinitis 04/20/2015 Insomnia 07/07/2014 Internal hemorrhoids 11/07/2013 Diverticulosis 11/07/2013 Mitral valve prolapse syndrome 03/18/2013 Peripheral neuropathy 07/11/2010 Encounters Date Type Department Care Team Description 07/09/2024 2:00 PM EDT Office Visit Gastroenterology - [place] [address] [facility] [address] [place] [phone] Guera Tejada PA Gastroesophageal reflux disease, unspecified whether esophagitis present (Primary Dx); Irritable bowel syndrome with diarrhea 07/09/2024 Telephone Adult Medicine [address] [phone] Shahnaz Falcon RN 07/08/2024 Telephone Adult Medicine [address] [phone] Glory Toledo MD faxed order ([facility] 05/28/2024 Telephone Adult Medicine [address] [phone] Glory Toledo MD Appointment 05/20/2024 Telephone Adult Medicine [address] [phone] Glory Toledo MD [facility] 05/13/2024 Telephone Adult Medicine [address] [phone] Glory Toledo MD fax ([facility] incoming fax please sign and return ) 04/30/[address] [facility] [address] [phone] Guera Tejada PA 04/24/[address] [facility] [address] [phone] Guera Tejada PA provider call back 04/23/2024 1:10 PM [facility] Lab Draw Station - [address] [phone] Diarrhea, unspecified type; Gallstone ileus ([facility]) 04/23/[address] [facility] [address] [phone] Guera Tejada PA medication from Last 3 Months Immunizations Name Administration Dates Next Due Influenza trivalent, 0.5mL ( Fluzone High-dose) 65yo and older 01/30/2023,12/22/2021,02/25/2021,12/08 Influenza trivalent, with pr eservative (Fluzone; Afluria) 6mo and older 01/05/2020,12/07/2017,12/04/2011,12/22,12/30/2009 PPD Test 04/11/2021,10/05/2020 Pneumococcal conjugate 13 va lent (Prevnar 13, PCV13) 2mo and older 10/19/2017,03/23/2015 Pneumococcal polysaccharide 23 valent (Pneumovax 23) 2yo and older 11/20/2019 Zoster recombinant (Shingrix ) 19yo and older 10/19/2017,07/31/2017 Surgical History Surgery Date Site/Laterality Comments HYSTERECTOMY PROCEDURE: HISTORICAL HYSTERECTOMY OTHER SURGICAL HISTORY PROCEDURE: HISTORY OTHER; COMMENT: vein ligation CATARACT EXTRACTION PROCEDURE: HISTORICAL CATARACT REMOVAL CHOLECYSTECTOMY PROCEDURE: HISTORICAL CHOLECYSTECTOMY Medical History Medical History Date Comments Allergic rhinitis 04/20/2015 DX:Allergic rh initis Anemia 12/21/2017 DX:Anemia Asthma 09/06/2016 DX:Asthma Chronic constipation 02/21/2016 DX:Chronic constipation Depression 02/28/2017 DX:Depression Diverticulosis 11/07/2013 DX:Diverticulosi s DJD (degenerative joint dise ase) of knee 08/20/2015 DX:DJD (degenerative joint d isease) of knee GERD (gastroesophageal reflux disease) 07/03/2017 DX:GERD (gastroesophageal reflux disease) Hyperlipidemia 12/21/2017 DX:Hyperlipidemi a Hypertension 12/21/2017 DX:Hypertension Hypothyroidism 07/17/2017 DX:Hypothyroidis m Insomnia 07/07/2014 DX:Insomnia Internal hemorrhoids 11/07/2013 DX:Internal hemorrhoids Irritable bowel syndrome 07/03/2017 DX:Irri table bowel syndrome Mitral valve prolapse syndrome 03/18/2013 D X:Mitral valve prolapse syndrome Morbid obesity with body mas s index (BMI) of 60.0 to 69.9 in adult ([facility]) 09/06/2016 DX:Morbid obesity with body mass index (BMI) of 60.0 to 69.9 in adult ([facility]) Peripheral neuropathy 07/11/2010 DX:Periphe ral neuropathy Prediabetes 07/17/2017 DX:Prediabetes MISSY on CPAP 10/06/2016 DX:MISSY on CPAP Urinary incontinence, mixed 02/06/2022 DX:U rinary incontinence, mixed; COMMENT: [facility] Morbid obesity with BMI of 5 0.0-59.9, adult ([facility]) 09/06/2016 DX:Morbid obesity with BMI o f 50.0-59.9, adult ([facility]) Supplemental oxygen dependent 02/06/2022 DX :Supplemental oxygen dependent; COMMENT: 3 L 24/7 Wheelchair dependent 02/06/2022 DX:Wheelcha ir dependent Family History Medical History Relation Name Comments Diabetes Brother Diabetes Mother Heart failure Mother Hypertension Mother Heart failure Sister 1 Heart failure Sister 2 Relation Name Status Comments Brother Father Mother Sister 1 Alive Sister 2 Social History Tobacco Use Types Packs/Day Years Used Date Smoking Tobacco: Never Smokeless Tobacco: Never Alcohol Use Standard Drinks/Week Comments Not Currently 0 (1 standard drink = 0.6 oz pur e alcohol) Comments Unknown Sex and Gender Information Value Date Recorded Sex Assigned at Not on file Legal Sex Female 9:26 PM EST Gender Identity Not on file Sexual Orientation Not on file Obstetrics History Last Filed Vital Signs Vital Sign Reading Time Taken Comments Blood Pressure 116/62 07/09/2024 2:41 PM EDT Pulse 56 01/09/2024 3:26 PM EDT Temperature - - Respiratory Rate - - Oxygen Saturation 96% 07/17/2023 2:09 PM EDT 3 liters Inhaled Oxygen Concentration - - Weight 141 kg (310 lb) 04/29/2024 11:00 AM EST Height 162.6 cm (5' 4 ) 07/09/2024 2:41 PM EDT Body Mass Index 51.59 04/29/2024 11:00 AM EST Plan of Treatment Upcoming Encounters Date Type Department Care Team (Late st Contact Info) Description 07/18/2024 11:00 AM EDT Office Visit Adult Medicine [facility] [address] [place] [phone] Glory Masters MD [address] [place] [address] 07/09/2025 1:00 PM EDT Office Visit Gastroenterology - [place] [address] [facility] 175 [facility] [address] [place] [phone] Guera Tejada PA [address] [facility] [address] [place] [address] Health Maintenance Due Date Last Done Comments DTaP,Tdap,and Td Vaccines (1 - Tdap) 08/12/1971 RSV Immunization Adult Patients (1 - Risk 60-74 years 1-dose series) 2012 Osteoporosis Screening (Bone Density Screening) 03/18/2022 Social Influencers of Health Screening 03/18/2022 Breast Cancer Screening 07/20/2022 07/21/19 21, 07/20/2020, 10/30/2018, Additional history exists COVID-19 Vaccine ( season) 2023 04/06/2023, 06/14/2021, 05/20/2021 Depression Screening 05/07/2024 05/07/2023, 05/07/19 Falls Risk Assessment 05/07/2024 05/07/2023, 024 Medicare Annual Wellness Visit 05/07/2024 05/07/2023 Hypertension/CHF/CAD Annual BMP Blood Test 07/16/2024 07/17/2023 Influenza Vaccine (Season Ended) 2024 01/30/2023, 12/22/2021, 02/25/2021, Additional history exists Cholesterol Screening (Lipid Panel) 07/16/2028 07/17/2023, 07/17/2023 Colorectal Cancer Screening: Colonoscopy 11/06/2028 11/06/2018, 11/06/2018 Zoster Vaccines Completed 10/19/2017, 07/31/2017 Pneumococcal Vaccine: 50+ Years Completed 11/20/2019, 10/19/2017, 03/23/2015 Hepatitis C Screening Completed 03/19/2020 HIB Vaccines Aged Out No longer eligi ble based on patient's age to complete this topic HPV Vaccines Aged Out No longer eligi ble based on patient's age to complete this topic Hepatitis A Vaccines Aged Out No long er eligible based on patient's age to complete this topic Hepatitis B Vaccines Aged Out No long er eligible based on patient's age to complete this topic IPV Vaccines Aged Out No longer eligi ble based on patient's age to complete this topic MMR Vaccines Aged Out No longer eligi ble based on patient's age to complete this topic Meningococcal ACWY Vaccine Aged Out N o longer eligible based on patient's age to complete this topic Meningococcal B Vaccine Aged Out No l onger eligible based on patient's age to complete this topic RSV Immunization Patients Under 20 months Aged Out No longer eligible based on patient's age to complete this topic Varicella Vaccines Aged Out No longer eligible based on patient's age to complete this topic Procedures Procedure Name Priority Date/Time Associated Diagnosis Comments PANCREATIC ELASTASE 1 Routine 04/23/2024 1:11 PM EST Diarrhea, unspecified type CLOSTRIDIUM DIFFICILE TOXIN Routine 04/23/2024 1:11 PM EST Diarrhea, unspecified type Gallstone ileus (CMS/HCC) GASTROINTESTINAL PATHOGENS BY PCR Routine 04/23/2024 1:11 PM EST Diarrhea, unspecified type Gallstone ileus (CMS/HCC) ANNUAL BMP BLOOD TEST Routine 07/17/2023 LIPID PANEL Routine 07/17/2023 DEPRESSION SCREENING Routine 05/07/2023 FALLS RISK ASSESSMENT Routine 05/07/2023 [facility] SCREENING DIGITAL Routine 07/20/2020 3:36 PM EDT Encounter for screening mammogram for malignant neoplasm of breast HEPATITIS C SCREENING Routine 03/19/2020 COLONOSCOPY Routine 11/06/2018 from Last 3 Months or Most Recently Relevant to Health Maintenance Results * Gastrointestinal pathogens molecular study (04/23/2024 1:11 PM EST) Campylobacter Detection by PCR Not Detected Not Detected LAB MICROBIOLOGY METHOD 5 4:34 PM EST [facility] Plesiomonas shigelloides Detection by PCR Not Detected Not Detected LAB MICROBIOLOGY METHOD 5 4:34 PM EST [facility] Salmonella Detection by PCR Not Detected Not Detected LAB MICROBIOLOGY METHOD 5 4:34 PM [facility] Vibrio Detection by PCR Not Detected Not Detected LAB MICROBIOLOGY METHOD 5 4:34 PM [facility] Vibrio cholerae Detection by PCR Not Detected Not Detected LAB MICROBIOLOGY METHOD 5 4:34 PM [facility] Yersinia enterocolitica Detection by PCR Not Detected Not Detected LAB MICROBIOLOGY METHOD 5 4:34 PM [facility] Enteroaggregative E coli EAEC Detection by PCR Not Detected Not Detected LAB MICROBIOLOGY METHOD 5 4:34 PM [facility] Enteropathogenic E coli EPEC Detection Not Detected Not Detected LAB MICROBIOLOGY METHOD 5 4:34 PM [facility] Enterotoxigenic E coli ETEC LTST Detection Not Detected Not Detected LAB MICROBIOLOGY METHOD 5 4:34 PM [facility] Shiga-like toxin producing E coli STEC STX1 STX2 Det Not Detected Not Detected LAB MICROBIOLOGY METHOD 5 4:34 PM [facility] Shigella Enteroinvasive E coli EIEC Detection Not Detected Not Detected LAB MICROBIOLOGY METHOD 5 4:34 PM [facility] Cryptosporidium Detection by PCR Not Detected Not Detected LAB MICROBIOLOGY METHOD 5 4:34 PM [facility] Cyclospora cayetanensis Detection by PCR Not Detected Not Detected LAB MICROBIOLOGY METHOD 5 4:34 PM [facility] Entamoeba histolytica Detection by PCR Not Detected Not Detected LAB MICROBIOLOGY METHOD 5 4:34 PM [facility] Giardia lamblia Detection by PCR Not Detected Not Detected LAB MICROBIOLOGY METHOD 5 4:34 PM [facility] Adenovirus F 40 41 Detection by PCR Not Detected Not Detected LAB MICROBIOLOGY METHOD 5 4:34 PM [facility] Astrovirus Detection by PCR Not Detected Not Detected LAB MICROBIOLOGY METHOD 5 4:34 PM [facility] Norovirus GI GII Detection by PCR Not Detected Not Detected LAB MICROBIOLOGY METHOD 5 4:34 PM EST [facility] Sapovirus Detection by PCR Not Detected Not Detected LAB MICROBIOLOGY METHOD 5 4:34 PM EST [facility] Rotavirus A Detection by PCR Not Detected Not Detected LAB MICROBIOLOGY METHOD 5 4:34 PM EST [facility] Stool Rectum structure / Unknown Non-blood Collection / Unknown 04/23/2024 1:11 PM EST 04/23/2024 1:11 PM EST Narrative [facility] - 04/23/2024 4:34 PM EST PCR testing is much more sensitive than traditional techniques and allows for the detection of low numbers of stool pathogens. The clinical correlation of PCR results with the need for treatment and clinical outcomes has not been established. Therefore the results of PCR testing for stool pathogens must be taken into clinical context when making treatment decisions. This is a diagnostic test only, repeat testing for cure is not advised. You may consider infectious disease consult for additional guidance. ??Testing Performed by [facility] Guera MENENDE[facility] LAB MICROBIOLOGY - GENERAL OR DERABLES Final Result [facility] [address] [place] [address], * Pancreatic elastase 1 (04/23/2024 1:11 PM EST) Pancreatic Elastase 1 553.0 >200 mcg/g 04/28/2024 2:10 PM EST [facility] Comment: Adult and Pediatric Referance Ranges for Pancreatic Elastase-1: Normal: ? >200 mcg/g Moderate Pancreatic Insufficiency: ?100-200 mcg/g Severe Pancreatic Insufficiency: ?<100 mcg/g Test performed at [facility], [facility] [place] ??[address] ? [phone] Patito Jara MD, PhD - Retail Team Leader Stool Rectum structure / Unknown Non-blood Collection / Unknown 04/23/2024 1:11 PM EST 04/23/2024 1:11 PM EST [facility] BODY FLUIDS AND STOOLS OR DERABLES Final Result [facility] [address] [place] [address] * Clostridium difficile toxin (04/23/2024 1:11 PM EST) [facility] Clostridium difficile GDH Antigen Negative Negative 04/23/2024 3:19 PM EST [facility] C difficile Toxins A+B, EIA Negative Negative 04/23/2024 3:19 PM EST [facility] Comment:NEGATIVE FOR TOXIN P RODUCING CLOSTRIDIOIDES DIFFICILE, NO ADDITIONAL TESTING IS NECESSARY. Stool Rectum structure / Unknown Non-blood Collection / Unknown 04/23/2024 1:11 PM EST 04/23/2024 1:11 PM EST [facility] MICROBIOLOGY - GENERAL OR DERABLES Final Result [facility] [address] [place] [address], [place] [phone] * Annual BMP Blood Test (07/17/2023) Pathologist [facility] Annual BMP Blood Test ABSTRACTED Historical Provider HEALTH MAINTENANCE Final Result * Lipid panel (07/17/2023) [facility] LDL/HDL Ratio 3 0 - 4 Triglycerides 127 0 - 150 mg/dL Cholesterol 141 0 - 200 mg/dL HDL 53 >=40 mg/dL LDL Cholesterol 63 0 - 100 mg/dL Blood Venous blood specimen / Unknown Historical Provider LAB BLOOD ORDERABLES Angelia l Result * Falls Risk Assessment (05/07/2023) Falls Risk Assessment ABSTRACTED us Historical Provider HEALTH MAINTENANCE Final Result * Depression Screening (05/07/2023) HM Depression Screening ABSTRACTED us Historical Provider HEALTH MAINTENANCE Final Result * LASHAWN SCREENING DIGITAL (07/20/2020 3:36 PM EDT) Anatomical Region Laterality Modality Mammography 07/20/2020 2:39 PM EDT Narrative 07/20/2020 3:36 PM EDT [facility] Diagnostic Imaging Department [address] [place], [place] [id number] Patient: ??ALLEN NEUMANN ?/Age/Sex: 1950 - F Unit#: ??[id number] ? Location/Status: ??SPDIMAM/REG CLI ? Mnemonic/Ordering Site: ??DIGSC/SPMAM Ordering Physician: ??LUIS GAMA MD Lashawn Screening Digital - 07/20/20 - 1520 EXAM: Lashawn Screening Digital EXAM DATE AND TIME: 07/20/2020 3:22 PM HISTORY: ??Screening. COMPARISON: ??10/29/18, 10/25/17, 04/21/16, 08/21/14 TECHNIQUE: CC and MLO views of both breasts were obtained using full field digital mammography. Bilateral digital breast tomosynthesis was performed in the MLO projection. Computer aided detection with the Future Simple.2-H was employed. TISSUE DENSITY: a. The breasts are almost entirely fatty. FINDINGS: Positioning is limited. No suspicious masses, grouped microcalcifications, or areas of architectural distortion are seen. The skin and vascularity are unremarkable. IMPRESSION: Stable mammographic appearance of the breasts. ??No evidence of malignancy is seen. A negative mammogram in the presence of a clinically suspicious palpable abnormality does not preclude the possibility of malignancy or alter the indications for biopsy. BI-RADS: ??Category 1: Negative RECOMMENDATION(S): 1: Routine screening mammogram BILATERAL in 1 year. [id number], [id number], [id number] Dictating Physician: ??CLARIBEL ALBA MD Electronically Signed by: ??CLARIBEL ALBA MD Dic Date/Time: ??07/20/20 1535 Sign date/Time: ??07/20/20 1536 Procedure Note Claribel Alba MD - 03/28/2022 [facility] Diagnostic Imaging Department [address] [place] [address] Patient: NELALLEN /Age/Sex: 1950 - 69 - F Unit#: [id number] Location/Status: [facility]/REG CLI Mnemonic/Ordering Site: [facility] Ordering Physician: LUIS GAMA MD Lashawn Screening Digital - 07/20/20 - 1521 EXAM: [facility] Screening Digital EXAM DATE AND TIME: 07/20/2020 3:22 PM HISTORY: Screening. COMPARISON: 10/29/18, 10/25/17, 04/21/16, 08/21/14 TECHNIQUE: CC and MLO views of both breasts were obtained using fullfield digital mammography. Bilateral digital breast tomosynthesis was performedin the MLO projection. Computer aided detection with the Future Simple.2-[employer] employed. TISSUE DENSITY: a. The breasts are almost entirely fatty. FINDINGS: Positioning is limited. No suspicious masses, grouped microcalcifications,or areas of architectural distortion are seen. The skin and vascularity are unremarkable. IMPRESSION: Stable mammographic appearance of the breasts. No evidence of malignancyis seen. A negative mammogram in the presence of a clinically suspicious palpable abnormality does not preclude the possibility of malignancy or alter the indications for biopsy. BI-RADS: Category 1: Negative RECOMMENDATION(S): 1: Routine screening mammogram BILATERAL in 1 year. [address]1432, 59471 3341F, 7025F Dictating Physician: CLARIBEL ALBA MD Electronically Signed by: CLARIBEL ALBA MD Dic Date/Time: 07/20/20 153 Sign date/Time: 07/20/20 1536 Luis Gama MD IMG BI PROCEDURES Final Result * Hepatitis C Screening (03/19/2020) Hepatitis C Screening ABSTRACTED Historical Provider HEALTH MAINTENANCE Final Result * Colonoscopy (11/06/2018) Colonoscopy NO INTERPRETATION , ABSTRACTED Anatomical Region Laterality Modality Other Historical Provider HEALTH MAINTENANCE Final Result from Last 3 Months or Most Recently Relevant to Health Maintenance Insurance MEDICARE MEDICAID - [place] Advance Directives Documents on File Type Date Recorded 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
--- OUTSIDE RECORDS SUMMARY | 2024-07-16 14:25 | XMS_ITS ---
Author Organization [facility] Care Team Providers Care Paperboard Machine Operator Name Role Phone Poncho Ragland Unavailable Unavailable Candace Thompson Unavailable Unavailable Marsha Haddad Unavailable Unavailable aMrsha Luu Unavailable Unavailable Leslie Cowan Unavailable Unavailable Allergies and adverse reactions Code CodeSystem Substance Reaction Severity StartDate Concern Status Rubber Unknown 10/04/2020 active Latex Unknown 10/04/2020 active 5640 RXNORM Ibuprofen Unknown 10/04/2020 active 677852 RXNORM Celecoxib Unknown 10/04/2020 active Care Team Name Role Address Phone Organization Dates Poncho Ragland PCP [address], [address], [facility] (Office): : [facility] 03/28/2021 - 04/27/2021 Candace Thompson Attending Physician [address], [address], [facility] (Office): : [facility] 03/28/2021 - 04/27/2021 Marsha Haddad Attending Physician [address], [address], [facility] (Office): [facility] 03/28/2021 - 04/27/2021 Marsha Luu Attending Physician [facility] 03/28/2021 - 04/27/2021 Leslie Cowan Attending Physician [address] [place] [address], [place], [address], [facility] (Office): [facility] 03/28/2021 - 04/27/2021 Immunizations Immunization Status Vaccine Details Vaccine Code CodeSystem Date Notes Influenza completed Influenza, split virus, trivalent, injectable, contains preservative 141 CVX created date: 10/18/2020 consent date: 10/18/2020 administere d date: 01/05/2020 TB 1 Step Mantoux (PPD) completed tuberculin skin test; unspecified formulation lotNumber: [id number] expiry: 06/06/2021 Given 0.1 ml Right Forearm intradermally 98 CVX created date: 10/06/2020 consent date: 10/06/2020 administere d date: 10/05/2020 TB 2 Step Mantoux Skin Test completed tuberculin skin test; unspecified formulation lotNumber: [id number] expiry: 09/08/2022 Mfg: santhereseoi pasteur Given 0.1 ml Right Forearm subcutaneously Step 1 of Multi-step with next step required 98 CVX created date: 04/13/2021 consent date: 04/13/2021 administere d date: 04/11/2021 SARS-COV-2 (COVID-19) cancelled SARS-COV-2 (COVID-19) vaccine, mRNA, spike protein, LNP, preservative free, 10 mcg/0.2mL dose, usman-sucrose formulation 218 CVX created date: 03/28/2021 consent date: 03/28/2021 Mental Status Section Date Assessment Total Score Description 04/27/2021 BIMS 15 cognitively int act CAM 0 No delirium ind icated PHQ-9 00 04/01/2021 BIMS 15 cognitively int act CAM 0 No delirium ind icated PHQ-9 00 Problems Problem # Description Date of onset Resolved Date Code CodeSystem Concern Status 1 ACUTE RESPIRATORY FAILURE WITH HYPOXIA [address] active 2 CHRONIC OBSTRUCTIVE PULMONARY DISEASE, UNSPECIFIED 44853020 SNOMED CT active 3 COVID-[address] active 4 DIFFICULTY IN WALKING, NOT ELSEWHERE CLASSIFIED 830501095 SNOMED CT active 5 DYSPHAGIA, ORAL PHASE 108611644 SNOMED CT active [address] active [address] active 8 HYPO-OSMOLALITY AND HYPONATREMIA 687966283 SNOMED CT active 9 MUSCLE WASTING AND ATROPHY, NOT ELSEWHERE CLASSIFIED, LEFT UPPER ARM [address] active 10 MUSCLE WASTING AND ATROPHY, NOT ELSEWHERE CLASSIFIED, RIGHT UPPER ARM [address] active 11 OTHER SPECIFIED BACTERIAL AGENTS THE CAUSE OF DISEASES CLASSIFIED ELSEWHERE 93636287 SNOMED CT active 12 PNEUMONIA, UNSPECIFIED ORGANISM 021 03/28/[address] completed 13 POLYNEUROPATHY, UNSPECIFIED 57113249 SNOMED CT active 14 RESPIRATORY BRONCHIOLITIS INTERSTITIAL LUNG DISEASE 156095354 SNOMED CT active 15 UNSPECIFIED ESCHERICHIA COLI [E. COLI] THE CAUSE OF DISEASES CLASSIFIED ELSEWHERE 61698594 SNOMED CT active 16 URINARY TRACT INFECTION, SITE NOT SPECIFIED 02913070 SNOMED CT active 17 DYSPHAGIA, ORAL PHASE 021 03/28/[address] completed 18 DELUSIONAL DISORDERS [address] active 19 DEPENDENCE ON SUPPLEMENTAL OXYGEN [address] active 20 ESSENTIAL (PRIMARY) HYPERTENSION [address] active 21 GASTRO-ESOPHAGEAL REFLUX DISEASE WITHOUT ESOPHAGITIS [address] active 22 HALLUCINATIONS, UNSPECIFIED [address] active 23 MORBID (SEVERE) OBESITY DUE TO EXCESS CALORIES [address] active 24 MUSCLE WASTING AND ATROPHY, NOT ELSEWHERE CLASSIFIED, LEFT LOWER LEG 03/28/[address] completed 25 MUSCLE WASTING AND ATROPHY, NOT ELSEWHERE CLASSIFIED, LEFT UPPER ARM 03/28/[address] completed 26 MUSCLE WASTING AND ATROPHY, NOT ELSEWHERE CLASSIFIED, RIGHT LOWER LEG 03/28/[address] completed 27 MUSCLE WASTING AND ATROPHY, NOT ELSEWHERE CLASSIFIED, RIGHT UPPER ARM 03/28/[address] completed 28 OBSTRUCTIVE SLEEP APNEA (ADULT) (PEDIATRIC) 30441710 SNOMED CT active 29 OTHER ASTHMA 629220732 SNOMED CT active 30 PNEUMONITIS DUE TO INHALATION OF FOOD AND VOMIT 03/28/[address] completed 31 PSYCHOTIC DISORDER WITH DELUSIONS DUE TO KNOWN PHYSIOLOGICAL CONDITION 259695437 SNOMED CT active 32 RESPIRATORY FAILURE, UNSPECIFIED WITH HYPOXIA 03/28/[address] completed Reason for Referral No Reasons for Referral Entered Social History Social History Observation Description Start Date End Date Code Code System Current Smoking Status Tobacco smoking consumption unknown 675581324 SNOMED CT Sex Assigned At Female 1950 82583-8 [facility] Vital Signs Code Code System Vitals Name Values and Units Timing Information 24492-5 [facility] Pain Level Value=0.0 04/27/2021 9279-1 [facility] Respiratory Rate Value=18.0 Units=/m in 04/27/2021 30852-4 [facility] O2 % BldC Oximetry Value=95.0 Units= % 04/27/2021 8462-4 [facility] Blood Pressure-Diastolic Value=79 Un its=mmHg 04/26/2021 8480-6 [facility] Blood Pressure-Systolic Cpvxf=568 Un its=mmHg 04/26/2021 8867-4 [facility] Heart rate Value=67.0 Units=/min 8310-5 [facility] Body Temperature Value=97.6 Units=?? F 04/26/2021 81215-7 [facility] Weight Egzju=342.1 Units=Lbs 09/2021 8302-2 [facility] Height Value=64.8 Units=Inches 10/04/2020
--- OUTSIDE RECORDS SUMMARY | 2024-07-16 14:25 | XMS_ITS | Encounter Summary ---
Author Organization [facility] Address [address] [facility] [address] [place] [address] Phone Care Team Providers Care Clipping Marker Name Role Phone Bryanna Gama MD Primary Care Provider [phone] Reason for Visit * Reason Comments Med Refill Encounter Details Date Type Department Care Team (Late st Contact Info) Description 05/04/2023 Refill [facility] [address] [facility] [address] [place] [phone] Butch Sharpe MD [address] [facility] [address] [place] [address] Social History Tobacco Use Types Packs/Day Years Used Date Smoking Tobacco: Never Assessed Comments Unknown Sex and Gender Information Value Date Recorded Sex Assigned at Not on file Legal Sex Female 4:58 PM EST Gender Identity Not on file Sexual Orientation Not on file documented as of this encounter Miscellaneous Notes * Telephone Encounter - Rishabh Castellanos MD - 05/04/2023 4:46 PM EST Duplicate- pt has another prescription for the same med documented in this encounter Plan of Treatment Upcoming Encounters Date Type Department Care Team (Late st Contact Info) Description 08/13/2024 3:15 PM EDT Office [facility] [address] [facility] [address] [place] [phone] Butch Sharep MD [address] [facility] [address] [place] [phone] documented as of this encounter Visit Diagnoses Not on filedocumented in this encounter Care Teams Clipping Marker Relationship Specialty Start Date End Date Bryanna Gama MD [address] [facility] [address] [place] [phone] PCP - General Internal Medicine 10/27/20 documented as of this encounter
--- OUTSIDE RECORDS SUMMARY | 2024-07-16 14:25 | XMS_ITS | Encounter Summary ---
Author Organization [facility] Address [address] [place] [address] Care Team Providers Care Travel Assistant Name Role Phone Glory Masters MD Primary Care Prov ider Reason for Visit * Reason Onset Date Comments faxed order 07/08/2024 [facility] Encounter Details Date Type Department Care Team (Late st Contact Info) Description 07/08/2024 Telephone Adult Medicine [address] [phone] Glory Masters MD [address] [place] [phone] faxed order ([facility]) Social History Tobacco Use Types Packs/Day Years [...] on file documented as of this encounter Progress Notes * Keyonna Chris - 07/08/2024 1:33 PM EDT Faxed order received from [facility] please sign and fax back to [phone]. documented in this encounter Plan of Treatment Upcoming Encounters Date Type Department Care Team (Late st Contact Info) Description 07/18/2024 11:00 AM EDT Office Visit Adult Medicine [facility] [address] [place] [phone] Glory Masters MD [address] [place] [address] 07/09/2025 1:00 PM EDT Office Visit [facility] [place] [address] [place] [address] Guera Tejada PA [address] [facility] [address] [place] [address] documented as of this encounter Visit Diagnoses Not on filedocumented in this encounter Care Teams Travel Assistant Relationship Specialty Start Date End Date Glory Masters MD [address] [place] [address] PCP - General Internal Medicine 12/06/21 documented as of this encounter
== END 2024-07-16 13:14 | disposition home or self-care (01) ==
PROVIDERS: PCP Internal Medicine; Visit Provider Internal Medicine
DX: J96.90 Respiratory failure, unspecified, unspecified whether with hypoxia or hypercapnia (principal); E66.01 Morbid (severe) obesity due to excess calories; J84.9 Interstitial pulmonary disease, unspecified; Z68.43 Body mass index [BMI] 50.0-59.9, adult; I10 Essential (primary) hypertension; E03.9 Hypothyroidism, unspecified; K21.9 Gastro-esophageal reflux disease without esophagitis; E78.00 Pure hypercholesterolemia, unspecified

== ENCOUNTER → 2024-07-16 12:26 | Outpatient (BNVA) | payer MEDICARE, MEDICAID, SELFPAY | PROVIDERS: PCP Internal Medicine; Visit Provider Internal Medicine | DX: I10 Essential (primary) hypertension (principal); J96.90 Respiratory failure, unspecified, unspecified whether with hypoxia or hypercapnia; J84.9 Interstitial pulmonary disease, unspecified; E66.2 Morbid (severe) obesity with alveolar hypoventilation; E03.9 Hypothyroidism, unspecified; K21.9 Gastro-esophageal reflux disease without esophagitis; E78.00 Pure hypercholesterolemia, unspecified; Z68.43 Body mass index [BMI] 50.0-59.9, adult | CPT/HCPCS: 99212 ==

== ENCOUNTER 2024-09-12 15:51 | Emergency (ER) | payer MEDICARE, MEDICAID, SELFPAY ==
[2024-09-12 16:08] VITALS: BP 127/73; PULSE 70; O2SAT 100
[2024-09-12 16:10] VITALS: BP 117/30; PULSE 71; RESP 16; TEMP 36.6; O2SAT 99; BMI 53.2
--- NOTE | 2024-09-12 16:57 | ED.SKABFB ---
HPI - Skin/Abscess/Foreign Bdy General Chief complaint: Skin/Abscess/Foreign Body Stated complaint: RASHES, DIFFICULTY AMBULATING PER EMS Time Seen by Provider: 09/12/24 16:17 History of Present Illness ED Provider: padilla HPI narrative: 74 F with brisa intertrig, worsening despite outpatient topical. Also c/o buttock pain. No home assistance with care Related Data Home Medications ?Medication ?Instructions ?Recorded ?Confirmed carvedilol 6.25 mg tablet 1 tab PO BIDWM 03/13/21 07/16/24 ferrous sulfate 325 mg (65 mg 1 tab PO DAILY 03/13/21 07/16/24 iron) tablet levothyroxine 50 mcg tablet 1 tab PO DAILY@0600 03/13/21 07/16/24 magnesium oxide 400 mg (241.3 mg 1 tab PO DAILY 03/13/21 07/16/24 magnesium) tablet montelukast 10 mg tablet 1 tab PO BEDTIME 03/13/21 07/16/24 pregabalin 225 mg capsule 1 cap PO BID 03/13/21 07/16/24 atorvastatin 10 mg tablet 1 tab PO BEDTIME 03/14/21 07/16/24 dexlansoprazole 60 mg 60 mg PO DAILY@0630 06/07/21 07/16/24 capsule,biphase delayed release (Dexilant) losartan 25 mg tablet 25 mg PO DAILY 06/07/21 07/16/24 furosemide 40 mg tablet 80 mg PO DAILY 10/02/22 07/16/24 dicyclomine 10 mg capsule 10 mg PO TID PRN Abdominal Pain 06/02/23 07/16/24 methylcellulose (laxative) 500 mg 500 mg PO DAILY 07/04/23 07/16/24 tablet (Citrucel) ondansetron HCl 4 mg tablet 4 mg PO Q8H PRN Nausea 07/04/23 07/16/24 Lactobacillus rhamnosus-Bifidobac. cap PO 07/16/24 07/16/24 animalis 3 billion cell capsule (Aidin) fexofenadine 180 mg tablet 180 mg PO DAILY 07/16/24 07/16/24 triamcinolone acetonide 55 mcg 2 spray intranasal DAILY 07/16/24 07/16/24 nasal spray aerosol Previous Rx's ?Medication ?Instructions ?Recorded tramadol 25 mg tablet 25 mg PO Q6H PRN pain (scale score 07/09/23 7-10) #10 tabs nystatin 100,000 unit/gram topical 1 appl topical BID 30 days #30 09/11/24 cream grams clotrimazole 1 % topical cream 1 appl topical BID 4 weeks #90 09/12/24 grams hydrocortisone 2.5 % topical cream 1 appl topical DAILY #60 grams 09/12/24 Allergies Allergy/AdvReac Type Severity Reaction Status Date / Time celecoxib [From CELEBREX] Allergy Unknown RASH Verified 09/12/24 16:13 Latex, Natural Rubber Allergy Unknown Rash Verified 09/12/24 16:13 ibuprofen [IBUPROFEN] AdvReac Intermediate RASH Verified 09/12/24 16:13 [facility] Past Medical History Medical History (Updated 09/13/24 @ 00:01 by Anel Bergeron) Aspiration pneumonia Acute hypercapnic respiratory failure Acute respiratory failure with hypoxia and hypercapnia IBS (irritable bowel syndrome) Respiratory failure Interstitial lung disease Seasonal allergies Diarrhea Neuropathy Asthma Hypercholesteremia GERD (gastroesophageal reflux disease) Thyroid activity decreased Hypertension Surgical History Hx of cataract surgery H/O: hysterectomy History of cholecystectomy Family History Family History (Updated 07/16/24 @ 13:06 by Hilda Lawrence MD) Mother Asthma Father No problems noted. 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 Housing: Apartment Housing Other:: [employer] Do you presently have visiting nurse or other home services: Yes (Home health aide M,Sun,Fri, few hours ; no RN involvement) Unable to assess alcohol history related to: Unknown Alcohol intake: never Patient Tobacco Use Status: Never used Tobacco Smoked in Last 30 Days: No e-Cigarette/Vaping Use: Never Used Second Hand Smoke Exposure: No Use of substances other than those prescribed or required for medical reasons: No Advance Directives: Yes Advance Directives on File: Yes Advance Directives Date on File: 07/05/23 service: No Current occupational status: retired Cognitive needs: Yes (Walker) Hearing needs: Yes (Hearing aids) Vision needs: Yes (Glasses) Physical Exam Vital Signs: Vital Signs: Last Vital Signs Temp 98.2 F 09/12/24 20:29 Pulse 67 09/12/24 20:29 Resp 16 09/12/24 20:29 BP 112/34 L 09/12/24 20:29 Pulse Ox 100 09/12/24 20:29 O2 Del Method Nasal Cannula 09/12/24 20:29 O2 Flow Rate 3 09/12/24 20:29 Oxygen Flow Rate 3 09/12/24 16:10 BMI result Body Mass Index 53.2 Const: Other: EXAM: Gen: Alert, awake, well appearing, well hydrated. Morbidly obese Head: Atraumatic Eyes: Anicteric, Normal conjunctiva. ENT: Moist mucosa, no pallor. ? Neck: Supple. Skin: ?Diffuse intertriginous Brisa of varying severity worse in the right crease under the pannus between the pannus in the right groin/proximal thigh as well as the left far underside of the lateral pannus Respiratory: Breathing comfortably, No distress.Clear to auscultation bilaterally, symmetric chest expansion, No wheeze, rales, ronchi. Cardiovascular: Regular rate and rhythm. No murmurs or rub. Well perfused periphery, warm extremities. No edema. ? Abdominal: No FOCAL TENDERNESS. Soft, no objective distension. No palpable masses or obvious organomegaly. ?No guarding, no rebound tenderness or other peritoneal findings. : No flank tenderness. Neuro: Alert. Gross movement of all extremities intact. ? Psych: Calm. Cooperative. MSK: No grossly visible deformity. Vital signs: See flowsheet Medications Administered Discontinued Medications Generic Name Dose Route Start Last Admin Trade Name Freq PRN Reason Stop Dose Admin Fluconazole 150 mg 09/12/24 16:58 09/12/24 17:10 Fluconazole 150 Mg Tablet PO 09/12/24 16:59 150 mg ONCE ONE Administration Medical Decision Making Medical Decision Making MDM Narrative: 74-year-old female with morbid obesity at home with minimal home care. Presenting for concern of worsening rash despite topical antifungal. Patient has no systemic signs or symptoms of sepsis or any overt clinical appearance of bacterial superinfection she does have however severe intertriginous Brisa. Perhaps stage 1 or 2 left buttock probably pressure ulcer. I will escalate therapy to oral and additional topical antifungal as well as steroid for the inflammatory reaction close PCP follow up. Recommended discussion with case management however they were not present to discuss possible home care asked her to discuss this with her PCP Discharge Plan Discharge Clinical Impression: Candidal intertrigo Patient Disposition: Home, Self-Care Instructions: Skin Yeast Infection (ED) Additional Instructions: DISCHARGE DIAGNOSES: Skin fungal infection worsening despite outpatient treatment. Early bedsore pressure ulcer on the left buttock HISTORY OF PRESENTATION: Skin rash EMERGENCY DEPARTMENT COURSE,TESTS, TREATMENTS: While in the ED today you were given a single oral medication for antifungal treatment. We prescribed medications see below DISCHARGE MEDICATIONS: ?[We have made no changes to your regular medication regimen] we have added to medications to be applied to this can follow the instructions FOLLOW-UP: ?Call your primary or general physician soon as possible to discuss your symptoms, your ED visit and to discuss follow up plans Call your primary doctor. INSTRUCTIONS ?& RETURN PRECAUTIONS: If any symptoms change first call your primary physician, if it is after-hours your primary doctors office should have a provider welding production supervisor you can speak with. If the symptoms are severe or very concerning to you then call 911 or return to the ED. [07] Jamie Yo MD Emergency Physician [facility] Prescriptions: New hydrocortisone 2.5 % cream 1 appl topical DAILY Qty: 60 0RF Rx Instructions: The second week apply once every OTHER day to affected areas clotrimazole 1 % cream 1 appl topical BID 28 Days Qty: 90 0RF No Action nystatin 100,000 unit/gram cream 1 appl topical BID 30 Days Qty: 30 0RF atorvastatin 10 mg tablet 1 tab PO BEDTIME carvedilol 6.25 mg tablet 1 tab PO BIDWM magnesium oxide 400 mg (241.3 mg magnesium) tablet 1 tab PO DAILY levothyroxine 50 mcg tablet 1 tab PO DAILY@0600 ferrous sulfate 325 mg (65 mg iron) tablet 1 tab PO DAILY montelukast 10 mg tablet 1 tab PO BEDTIME pregabalin 225 mg capsule 1 cap PO BID furosemide 40 mg tablet 80 mg PO DAILY dicyclomine 10 mg capsule 10 mg PO TID PRN (Reason: Abdominal Pain) ondansetron HCl 4 mg tablet 4 mg PO Q8H PRN (Reason: Nausea) Citrucel 500 mg tablet 500 mg PO DAILY tramadol 25 mg tablet 25 mg PO Q6H PRN (Reason: pain (scale score 7-10)) Qty: 10 0RF losartan 25 mg tablet 25 mg PO DAILY dexlansoprazole [Dexilant] 60 mg capsule,biphase delayed releas 60 mg PO DAILY@0630 fexofenadine 180 mg tablet 180 mg PO DAILY triamcinolone acetonide 55 mcg aerosol,spray 2 spray intranasal DAILY Rx Instructions: administer into each nostril Aidin 3 billion cell capsule PO Interventions: ED Discharge Assessment Last Done: 09/12/24 20:29 Discharge Date/Time: 09/12/24 20:29 Print Language: South African
[2024-09-12] MEDS: Fluconazole 150 MG TABLET PO (17:10)
[2024-09-12 18:11] VITALS: BP 112/34; PULSE 67; RESP 16; O2SAT 100
[2024-09-12 20:29] VITALS: BP 112/34; PULSE 67; RESP 16; TEMP 36.8; O2SAT 100
--- NOTE | 2024-09-13 08:29 | MHC.CM.PN ---
CM RECEIVED CM CONSULT. PT DC TO HOME BEFORE CM COULD SEE
== END 2024-09-12 20:29 | disposition home or self-care (01) ==
PROVIDERS: Emergency Provider Emergency Medicine; PCP Internal Medicine
DX: B37.2 Candidiasis of skin and nail (principal); R21 Rash and other nonspecific skin eruption; R26.2 Difficulty in walking, not elsewhere classified
CPT/HCPCS: 99283; 99284

== ENCOUNTER 2024-09-16 13:50 | Emergency (ER) | payer MEDICARE, MEDICAID, SELFPAY ==
[2024-09-16 14:15] VITALS: BP 114/50; PULSE 67; O2SAT 96
--- NOTE | 2024-09-16 14:16 | ED.GENADULT ---
HPI - General Adult General Chief complaint: General Medical Stated complaint: 2 week persistent rash, no improvement w/ topical Time Seen by Provider: 09/16/24 14:06 Source: patient and RN notes reviewed Mode of arrival: ambulatory Limitations: no limitations History of Present Illness ED Provider: Leslie Loving PA-C HPI narrative: This is a 74-year-old female, with a past medical history of ILD with chronic hypoexmic respiratory failure on 3 L supplemental O2 at baseline, GERD, hypertension, unspecified asthma, hypothyroidism, unspecified peripheral neuropathy, who is morbidly obese, who presents emergency department with concerns of rash. Patient was seen here in the emergency room on September 12, 2024 and was discharged on hydrocortisone and clotrimazole cream she has been using this and has not had any significant improvement, denies rash worsening. Patient also reports that she would like to be placed in a custodial as she is having increased difficulty taking care of herself at home. She denies any fevers, chills, chest pain, shortness for breath, abdominal pain, nausea, vomiting or diarrhea. She states that she typically ambulates with a walker however states that she has had increased difficulty doing so due to the rash on her legs. No other complaints or concerns at this time. MD complaint: Rash Quality: burning and aching Pain Consistency: constant Relieving factors: none Exacerbating factors: none Associated symptoms: rash Treatments prior to arrival: none Related Data Home Medications ?Medication ?Instructions ?Recorded ?Confirmed ferrous sulfate 325 mg (65 mg 1 tab PO DAILY 03/13/21 09/16/24 iron) tablet levothyroxine 50 mcg tablet 50 mcg PO DAILY@0600 03/13/21 09/16/24 magnesium oxide 400 mg (241.3 mg 1 tab PO DAILY 03/13/21 09/16/24 magnesium) tablet montelukast 10 mg tablet 10 mg PO BEDTIME 03/13/21 09/16/24 pregabalin 225 mg capsule 225 mg PO BID 03/13/21 09/16/24 atorvastatin 10 mg tablet 10 mg PO BEDTIME 03/14/21 09/16/24 dexlansoprazole 60 mg 60 mg PO DAILY@0630 06/07/21 09/16/24 capsule,biphase delayed release (Dexilant) losartan 25 mg tablet 25 mg PO DAILY 06/07/21 09/16/24 dicyclomine 10 mg capsule 10 mg PO TID PRN Abdominal Pain 06/02/23 09/16/24 methylcellulose (laxative) 500 mg 500 mg PO DAILY 07/04/23 09/16/24 tablet (Citrucel) ondansetron HCl 4 mg tablet 4 mg PO Q8H PRN Nausea 07/04/23 09/16/24 Lactobacillus rhamnosus-Bifidobac. 1 cap PO DAILY 07/16/24 09/16/24 animalis 3 billion cell capsule ([employer]) fexofenadine 180 mg tablet 180 mg PO DAILY 07/16/24 09/16/24 triamcinolone acetonide 55 mcg 2 spray intranasal DAILY 07/16/24 09/16/24 nasal spray aerosol carvedilol 6.25 mg tablet 6.25 mg PO BID 09/16/24 09/16/24 cetirizine 10 mg tablet 10 mg PO DAILY 09/16/24 09/16/24 furosemide 40 mg tablet 80 mg PO DAILY 09/16/24 09/17/24 Previous Rx's ?Medication ?Instructions ?Recorded clotrimazole 1 % topical cream 1 appl topical BID 4 weeks #90 09/12/24 grams hydrocortisone 2.5 % topical cream 1 appl topical DAILY #60 grams 09/12/24 Allergies Allergy/AdvReac Type Severity Reaction Status Date / Time celecoxib [From CELEBREX] Allergy Unknown RASH Verified 09/16/24 14:38 Latex, Natural Rubber Allergy Unknown Rash Verified 09/16/24 14:38 ibuprofen [IBUPROFEN] AdvReac Intermediate RASH Verified 09/16/24 14:38 Review of Systems Review of Systems: Yes all other systems are reviewed and are negative Constitutional: Constitutional: Reports as per [facility] Past Medical History Attestation statement: The following information was validated with the patient. Medical History Aspiration pneumonia Acute hypercapnic respiratory failure Acute respiratory failure with hypoxia and hypercapnia IBS (irritable bowel syndrome) Respiratory failure Interstitial lung disease Seasonal allergies Diarrhea Neuropathy Asthma Hypercholesteremia GERD (gastroesophageal reflux disease) Thyroid activity decreased Hypertension Surgical History Hx of cataract surgery H/O: hysterectomy History of cholecystectomy Family History Family History Mother Asthma Father No problems noted. 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 Housing: Apartment Housing Other:: [employer] Do you presently have visiting nurse or other home services: Yes (Home health aide M,Wed,Fri, few hours ; no RN involvement) Unable to assess alcohol history related to: Unknown Alcohol intake: never Patient Tobacco Use Status: Never used Tobacco Smoked in Last 30 Days: No e-Cigarette/Vaping Use: Never Used Second Hand Smoke Exposure: No Use of substances other than those prescribed or required for medical reasons: No Advance Directives: Yes Advance Directives on File: Yes Advance Directives Date on File: 07/05/23 Do you have a plan to hurt others: No Plan service: No Current occupational status: retired Cognitive needs: Yes (Walker) Hearing needs: Yes (Hearing aids) Vision needs: Yes (Glasses) Physical Exam ED Vital Signs: Vital Signs - 24 hr 09/17/24 14:35 09/17/24 23:39 09/18/24 08:00 Temperature 97.6 F 97.7 F 98.4 F Pulse Rate 67 71 73 Respiratory Rate 14 16 18 Blood Pressure 114/66 135/63 145/73 H Pulse Oximetry 100 98 100 Oxygen Delivery Method Nasal Cannula Nasal Cannula Nasal Cannula Oxygen Flow Rate 3 3 3 09/18/24 13:46 Temperature 99.2 F Pulse Rate 90 Respiratory Rate 18 Blood Pressure 137/50 L Pulse Oximetry 100 Oxygen Delivery Method Nasal Cannula Oxygen Flow Rate 3 BMI result Body Mass Index 55.5 Const General: cooperative, comfortable and no acute distress Nutritional Appearance: obese Orientation/consciousness: patient oriented x3 Limitations: no limitations [facility] Head: Yes normal to inspection, Yes normocephalic and Yes atraumatic Ears: hearing grossly normal bilaterally General nose exam: Normal external nose present Face and sinus: Yes normal facial exam Mouth: Normal oral and palatal mucosa present, oropharynx normal and moist mucous membranes Throat: Yes posterior oropharynx normal Eyes General: appearance normal, both eyes and all related structures Eyelids: Yes eyelids normal Conjunctivae: conjunctivae normal Sclerae: sclerae normal Pupils: Equal, round and reactive pupils present EOM: EOMs intact bilaterally Neck Neck: Yes normal visual inspection, Yes full ROM and Yes no lymphadenopathy Lymphatic: no lymphadenopathy noted Chest Chest palpation & inspection: normal inspection of the chest Resp Effort & Inspection: normal respiratory effort and able to speak in complete sentences Auscultation: clear to auscultation bilaterally, no crackles, no rales, no rhonchi and no wheezes Cardio Rate: regular rate Rhythm: regular rhythm Heart sounds: S1 normal heart sound present and S2 normal heart sound present GI Inspection: Yes normal to inspection Skin Other: Photo 1: Under right breast, there is a large area of moist, slightly erythematous and warm rash Photo 2: Abdomen, underneath the pannus extending into the bilateral inner groin, there is extensive, beefy red, foul-smelling moist rash, mildly tender to palpation, Photo 3: Left hip under lying skin fold, there is a beefy red, extensive rash Photo 4: Left flank, overlying skin folds, there is erythematous, beefy red rash, with skin breakdown/excoriation noted, no active bleeding Neuro General: patient oriented x3 and moves all extremities Cranial nerves: Yes Equal, round and reactive pupils present Extrem General: Yes normal to inspection Right upper extremity: normal to inspection Left upper extremity: normal to inspection Right lower extremity: normal to inspection Left lower extremity: normal to inspection Course Course Course Narrative: Time: 10:12 Date: 09/17/24 Provider: SHON Walsh Patient in physician observation for case management needs. No acute events reported overnight.? No current issues or complaints. VS stable. PT evaluated patient this morning and recommended short-term rehab. Pending case management eval. Will continue to monitor. Time: 09:45 Date: 09/18/24 Provider: SHON Walsh Patient in physician observation for case management needs. No acute events reported overnight.? No current issues or complaints. VS stable. [facility] in [place] will accept patient once [facility] approval is obtained. We will continue to monitor Time: 13:50 Date: 09/18/24 Provider: SHON Walsh Physician observation ended at 1600. Patient accepeted to [facility] in [place] for short-term rehab with probable transition to long-term care Medications Administered Generic Name Dose Route Start Last Admin Trade Name Freq PRN Reason Stop Dose Admin Atorvastatin Calcium 10 mg 09/16/24 21:00 09/17/24 22:18 Atorvastatin Calcium 10 Mg Tablet PO 10 mg BEDTIME [facility] Administration Calcium Polycarbophil 1 tab 09/17/24 09:00 09/18/24 09:30 Calcium Polycarbophil Tablet PO Not Given DAILY [facility] Carvedilol 6.25 mg 09/16/24 21:00 09/18/24 09:27 Carvedilol 6.25 Mg Tablet PO Not Given BID [facility] Protocol Clotrimazole 1 appl 09/16/24 21:00 09/18/24 09:27 Clotrimazole 1 % Cream 15 Gm Tube TOPICAL Not Given BID [facility] Protocol Ferrous Sulfate 324 mg 09/17/24 09:00 09/18/24 09:30 Ferrous Sulfate 324 Mg Tablet. PO Not Given DAILY [facility] Fluticasone Propionate 1 spray 09/17/24 09:00 09/18/24 09:32 Fluticasone Propionate Nasal 16 Gm [place] NOSTRIL-B Not Given BID [facility] Furosemide 80 mg 09/18/24 09:00 09/18/24 09:31 Furosemide 40 Mg Tablet PO Not Given DAILY [facility] Protocol Hydrocortisone 1 appl 09/17/24 09:00 09/18/24 09:31 Hydrocortisone 1 % Cream 28.35 Gm Tube TOPICAL Not Given DAILY [facility] Levothyroxine Sodium 50 mcg 09/17/24 06:00 09/18/24 09:30 Levothyroxine Sodium 50 Mcg Tablet PO Not Given DAILY@0600 [facility] Loratadine 10 mg 09/17/24 09:00 09/18/24 09:31 Loratadine 10 Mg Tablet PO Not Given DAILY [facility] Losartan Potassium 25 mg 09/17/24 09:00 09/18/24 09:33 Losartan Potassium 25 Mg Tablet PO Not Given DAILY [facility] Protocol Magnesium Oxide 400 mg 09/17/24 09:00 09/18/24 09:31 Magnesium Oxide 400 Mg Tablet PO Not Given DAILY [facility] Miconazole Nitrate 1 appl 09/16/24 21:00 09/18/24 09:27 Miconazole Nitrate 2% Powder 85 Gm Bottle TOPICAL Not Given BID [facility] Protocol Montelukast Sodium 10 mg 09/16/24 21:00 09/17/24 22:18 Montelukast Sodium 10 Mg Tablet PO 10 mg BEDTIME [facility] Administration Omeprazole 40 mg 09/17/24 06:30 09/18/24 09:30 Omeprazole 40 Mg Capsule. PO Not Given DAILY@0630 [facility] Pregabalin 225 mg 09/16/24 21:00 09/18/24 09:32 Pregabalin 75 Mg Capsule PO Not Given BID JOSÉ ANTONIO Discontinued Medications Generic Name Dose Route Start Last Admin Trade Name Love PRN Reason Stop Dose Admin Furosemide 40 mg 09/17/24 08:00 09/17/24 17:36 Furosemide 40 Mg Tablet PO Not Given BIDWM JOSÉ ANTONIO Protocol Medical Decision Making Medical Decision Making [facility] Narrative: This is a 74-year-old female, ILD with chronic hypoexmic respiratory failure on 3 L supplemental O2 at baseline, GERD, hypertension, unspecified asthma, hypothyroidism, unspecified peripheral neuropathy, who is morbidly obese, who presents emergency department with concerns of rash under breast, groin, abdomen, itchy and painful. Seen 4 days ago in the emergency room however symptoms have not improved. She is also hoping to have custodial placement as she no longer can adequately take care of herself at home. Will obtain basic labs. Rash consistent with extensive Tatum. She was placed on topical creams, I believe that this rash may be benefitted using topical powder, will try this instead to help dry out the rash. She is agreeable for this treatment. We will also contact case management and physical therapy for further management and disposition. Course: Labs returned, she has no leukocytosis, normocytic anemia with an H&H of 11.4/34.8, chemistry revealing no significant electrolyte derangement. At this time, patient does not need any further workup, will consult with case management and physical therapy. Patient placed in physician observation. Differential Diagnosis Differential Diagnoses: The differential diagnosis associated with the presentation includes Contact dermatitis, Tatum, allergic, cellulitis-unlikely Lab Data [facility] Lab Attestation statement: I reviewed the patient's lab results. See MDM and course 09/16/24 15:44 09/16/24 15:44 Labs: Lab Results 09/16/24 09/17/24 Range/Units 15:44 10:00 WBC 8.2 (4.8-10.8) X10*3/uL RBC 3.96 L (4.20-5.50) X10*6/uL Hgb 11.4 L (12.0-16.0) g/dl Hct 34.8 L (37.0-47.0) % MCV 87.9 (80.0-98.0) fL MCH 28.8 (27.0-33.0) pg MCHC 32.8 (31.0-35.0) g/dl RDW 14.4 (11.0-16.0) % Plt Count 163 (160-400) X10*3/uL MPV 11.4 (9.4-12.3) fL Immature Gran % (Auto) 0.5 H (0.0-0.4) % Neut % (Auto) 68.1 (45-73) % Lymph % (Auto) 18.0 L (20-40) % [place] % (Auto) 7.7 (2-11) % Eos % (Auto) 5.1 H (0-4) % Baso % (Auto) 0.6 (0-2) % Lymph # (Auto) 1.5 (1.2-4.9) X10*3/uL [place] # (Auto) 0.6 (0.1-1.2) X10*3/uL Eos # (Auto) 0.4 (0.0-0.4) X10*3/uL Baso # (Auto) 0.1 (0.0-0.2) X10*3/uL Abs Immat Gran (auto) 0.04 H (0.00-0.03) X10*3/uL Absolute Neuts (auto) 5.6 (2.0-8.3) x10*3/uL Absolute Nucleated RBC 0.000 (0.0-0.012) X10*3/uL Nucleated RBC % (auto) 0.0 (0.0-0.2) /100WBC Sodium 142 (135-145) mmol/L Potassium 4.2 (3.3-5.1) mmol/L Chloride 101 (96-108) mmol/L Carbon Dioxide 32 H (22-29) mmol/L Anion Gap 13 (12-20) BUN 26 H (9-16) mg/dL Creatinine 1.20 (0.5-1.4) mg/dL Estim Creat Clear Calc 63.3 Estimated GFR 44 Random Glucose 88 (60-115) mg/dL Calcium 8.4 (8.4-10.2) mg/dL Magnesium 2.0 (1.6-2.6) mg/dL Total Bilirubin 0.7 (0.0-1.0) mg/dL Direct Bilirubin 0.2 (0.0-0.5) mg/dL AST 21 (5-31) U/L ALT 10 (0-31) U/L Alkaline Phosphatase 90 (39-117) U/L Total Protein 6.2 L (6.5-8.0) g/dL Albumin 3.5 (3.5-5.0) g/dL Influenza Type A (PCR) NEGATIVE (Negative) Influenza Type B (PCR) NEGATIVE (Negative) RSV RNA Qual (PCR) NEGATIVE (Negative) SARS-CoV-2 RNA (RT-PCR) NEGATIVE (Negative) Discharge Plan Discharge Clinical Impression: Candidal intertrigo, Physical deconditioning Prescriptions: No Action atorvastatin 10 mg tablet 10 mg PO BEDTIME magnesium oxide 400 mg (241.3 mg magnesium) tablet 1 tab PO DAILY levothyroxine 50 mcg tablet 50 mcg PO DAILY@0600 ferrous sulfate 325 mg (65 mg iron) tablet 1 tab PO DAILY montelukast 10 mg tablet 10 mg PO BEDTIME pregabalin 225 mg capsule 225 mg PO BID furosemide 40 mg tablet 80 mg PO DAILY carvedilol 6.25 mg tablet 6.25 mg PO BID cetirizine 10 mg tablet 10 mg PO DAILY dicyclomine 10 mg capsule 10 mg PO TID PRN (Reason: Abdominal Pain) ondansetron HCl 4 mg tablet 4 mg PO Q8H PRN (Reason: Nausea) Citrucel 500 mg tablet 500 mg PO DAILY hydrocortisone 2.5 % cream 1 appl topical DAILY Qty: 60 0RF Rx Instructions: The second week apply once every OTHER day to affected areas clotrimazole 1 % cream 1 appl topical BID 28 Days Qty: 90 0RF losartan 25 mg tablet 25 mg PO DAILY dexlansoprazole [Dexilant] 60 mg capsule,biphase delayed releas 60 mg PO DAILY@0630 fexofenadine 180 mg tablet 180 mg PO DAILY triamcinolone acetonide 55 mcg aerosol,spray 2 spray intranasal DAILY Rx Instructions: administer into each nostril [employer] 3 billion cell capsule 1 cap PO DAILY Referrals: [facility] [Other] Print Language: French
[2024-09-16 14:34] VITALS: BP 107/30; PULSE 66; RESP 20; TEMP 36.2; O2SAT 98; BMI 55.5
[2024-09-16 14:42] VITALS: PULSE 79; O2SAT 100
[2024-09-16 15:48] LABS: MANUAL DIFF FLAG NO
[2024-09-16 15:51] LABS: Basophils Absolute Auto 0.1 X10*3/uL (0.0-0.2); Basophils Percent Auto 0.6 % (0-2); Eosinophils Absolute Auto 0.4 X10*3/uL (0.0-0.4); Eosinophils Percent Auto 5.1 % (0-4); Hematocrit 34.8 % (37.0-47.0); Hemoglobin 11.4 g/dl (12.0-16.0); Imm Gran Abs Auto 0.04 X10*3/uL (0.00-0.03); Imm Gran Pct Auto 0.5 % (0.0-0.4); Lymphocytes Absolute Auto 1.5 X10*3/uL (1.2-4.9); Mean Corpuscular HGB Conc 32.8 g/dl (31.0-35.0); Mean Corpuscular Hemoglobin 28.8 pg (27.0-33.0); Mean Corpuscular Volume 87.9 fL (80.0-98.0); Mean Platelet Volume 11.4 fL (9.4-12.3); Monocytes Absolute Auto 0.6 X10*3/uL (0.1-1.2); Monocytes Percent Auto 7.7 % (2-11); Neutrophils Absolute Auto 5.6 x10*3/uL (2.0-8.3); Neutrophils Percent Auto 68.1 % (45-73); Platelet Count 163 X10*3/uL (160-400); Red Blood Count 3.96 X10*6/uL (4.20-5.50); Red Cell Distribution Width 14.4 % (11.0-16.0); White Blood Count 8.2 X10*3/uL (4.8-10.8)
--- NOTE | 2024-09-16 15:52 | PC.NURSE ---
Pharmacy call, requested med req per direction by . Pharmacy acknowledged.
[2024-09-16 16:02] LABS: Alanine Aminotransferase 10 U/L (0-31); Albumin Level 3.5 g/dL (3.5-5.0); Alkaline Phosphatase 90 U/L (39-117); Anion Gap 13 (12-20); Aspartate Amino Transferase 21 U/L (5-31); Bilirubin Direct 0.2 mg/dL (0.0-0.5); Bilirubin Total 0.7 mg/dL (0.0-1.0); Blood Urea Nitrogen 26 mg/dL (9-16); Calcium 8.4 mg/dL (8.4-10.2); Carbon Dioxide 32 mmol/L (22-29); Chloride 101 mmol/L (96-108); Creatinine Clr Calc Pharmacy 63.3; Estimated Glomerular Filt Rate 44; Glucose Random 88 mg/dL (60-115); Potassium 4.2 mmol/L (3.3-5.1); Sodium 142 mmol/L (135-145); Total Protein 6.2 g/dL (6.5-8.0)
[2024-09-16 17:19] VITALS: BP 118/46; PULSE 63; RESP 20; TEMP 35.8; O2SAT 100
--- NOTE | 2024-09-16 17:53 | PHA.MEDREC ---
Addendum entered by Martin Lerma raghav 09/16/24 18:13: Med rec reviewed Original Note: Pharmacy Consult ? Medication Reconciliation Pharmacy has completed the medication reconciliation. Spoke to patient to confirm med list. Patient had a list of her medications with her Utilized claims and list from patient to confirm med list. Patient states she need her medications crushed because she has a hard time swallowing. Patient last had her medication yesterday.
[2024-09-16 18:31] VITALS: BP 101/35; PULSE 69; RESP 20; TEMP 36; O2SAT 100
--- OUTSIDE RECORDS SUMMARY | 2024-09-16 18:41 | XMS_ITS | Encounter Summary ---
Author Organization [facility] Address [address] [facility] [address] [place] [address] Phone Care Team Providers Care Nibbler Operator Name Role Phone Hilda Khalil MD Primary Care Provider [phone] Reason for Visit * Reason Comments Med Refill Encounter Details Date Type Department Care Team (Late st Contact Info) Description 05/04/2023 Refill [facility] [address] [facility] [address] [place] [address] Butch Sharpe MD [address] [address] Social History Tobacco Use Types Packs/Day [...] Encounters Date Type Department Care Team (Late Contact Info) Description 02/12/2025 4:15 PM EST Telemedicine [facility] [address] [facility] [address] [place] [address] Butch Sharpe MD [facility] [address] [place] [address] documented as of this encounter Visit Diagnoses Not on filedocumented in this encounter Care Teams Nibbler Operator Relationship Specialty Start Date End Date Hilda Khalil MD [address] [place], [place] PCP - General Internal Medicine 08/13/24 documented as of this encounter
[2024-09-16 22:01] VITALS: BP 121/43; PULSE 68; RESP 18; O2SAT 100
[2024-09-16] MEDS: carvediloL 6.25 MG TABLET PO (22:07)
[2024-09-16] MEDS: Montelukast Sodium 10 MG TABLET PO (22:07)
[2024-09-16] MEDS: Pregabalin 75 MG CAPSULE 225 MG PO (22:07)
[2024-09-16] MEDS: Atorvastatin Calcium 10 MG TABLET PO (22:08)
[2024-09-17] VITALS: RESP 16
[2024-09-17 06:29] VITALS: BP 106/62; PULSE 64; RESP 16; TEMP 36.3; O2SAT 100
--- NOTE | 2024-09-17 06:32 | MHC.EDTECH ---
0600 rounding done ,vitals taken,Pt slept all night awake now ,Patient was assisted unto bedside commode with asst and a walker ,void care given ,Patient back in bed ,Patient alert and Oriented ,No apparent distress noted .Call alfaro within Pt reach .
[2024-09-17] MEDS: Omeprazole 40 MG CAPSULE.DR PO (06:34)
[2024-09-17] MEDS: Levothyroxine Sodium 50 MCG TABLET PO (06:36)
[2024-09-17 07:52] VITALS: BP 106/62; PULSE 64; O2SAT 100
[2024-09-17] MEDS: Ferrous Sulfate 324 MG TABLET.DR PO (09:05)
[2024-09-17] MEDS: Fluticasone Propionate Nasal 16 GM SPRAY 1 SPRAY NOSTRIL-B ×2 (09:06→22:19)
[2024-09-17] MEDS: Clotrimazole 1 % Cream 15 GM TUBE 1 APPL TOPICAL ×2 (09:06→22:18)
[2024-09-17] MEDS: Furosemide 40 MG TABLET PO (09:06)
[2024-09-17] MEDS: Losartan Potassium 25 MG TABLET PO (09:06)
[2024-09-17] MEDS: Loratadine 10 MG TABLET PO (09:06)
[2024-09-17] MEDS: Miconazole Nitrate 2% Powder 85 GM Bottle 1 APPL TOPICAL ×2 (09:06→22:18)
[2024-09-17] MEDS: Magnesium Oxide 400 MG TABLET PO (09:06)
[2024-09-17] MEDS: carvediloL 6.25 MG TABLET PO (09:09)
[2024-09-17] MEDS: Pregabalin 75 MG CAPSULE 225 MG PO ×2 (09:15→22:18)
--- NOTE | 2024-09-17 10:11 | MHC.CM.ED ---
Received case management consult overnight. Patient came to the ER due to weakness. Work up essentially negative. Physical therapy eval completed. Short term rehab is recommended. Met with patient in regards to discharge planning. Patient lives at home with her sig other, Benoit, ambulates with a walker, receives oxygen from [facility] [place], and has a TELETYPESETTER OPERATOR twice a week. PCP verified. Copy of HCP verified to be on file. Patient is hoping to start with STR and transition to LTC. Patient is also hoping her sig other, Benoit, will be able be at the same facility as her. T/W explained LTC has been difficult to find d/t 4 facilities closing in the past year. Patient is aware facility could be 50 miles away. Patient is agreeable as long as Benoit is able to be placed with her. Referral broadcasted in [facility]. Continue to monitor for d/c needs.
[2024-09-17 11:40] LABS: Influenza A PCR NEGATIVE (Negative); Influenza B PCR NEGATIVE (Negative); Resp Syncy Virus RNA Qual PCR NEGATIVE (Negative); SARS COV2 PCR INHOUSE NEGATIVE (Negative)
--- NOTE | 2024-09-17 12:55 | MHC.CM.ED ---
Patient is requesting [facility] and [facility]. Neither facility is able to offer a bed. [facility], [facility], [facility] and [facility] to [facility] These options were discussed with patient. Patient does not have a 1st choice. Spoke with patient's niece/HCP, Salome via telephone at [phone]. [facility] is 1st choice. Facility made aware. MDS will be completed, sent to [facility] and [facility]. Continue to monitor for d/c needs.
--- NOTE | 2024-09-17 14:33 | PC.NURSE ---
Patient alert and oriented x 4. VSS. on 3L NC- baseline home 02. LUngs diminished, unlabored breathing. pink rash noted to lower abdominal folds, chary area, and groin- nistatin powder applied. Patient resting comfortably at this time, denies any pain. Bed alarm in place for safey.
[2024-09-17 14:35] VITALS: BP 114/66; PULSE 67; RESP 14; TEMP 36.4; O2SAT 100
--- NOTE | 2024-09-17 16:57 | MHC.EDTECH ---
patient has her supper tray
--- NOTE | 2024-09-17 17:36 | PC.NURSE ---
pt states she takes 80mg lasix PO in the morning - not 40mg BID as ordered. Reached out to Amparo MENENDEZ and pharmacy who are OK with switching to 80mg AM. To start tomorrow morning.
--- NOTE | 2024-09-17 22:00 | PC.NURSE ---
patient up to use commode, refusing to get back into bed stating that she does not want to stay here, would like to be transferred, redirected by this writer editor that the plan for her will be SNF placement which is why she is in overflow, security called to bedside for patient redirection
[2024-09-17] MEDS: Montelukast Sodium 10 MG TABLET PO (22:18)
[2024-09-17] MEDS: Atorvastatin Calcium 10 MG TABLET PO (22:18)
--- NOTE | 2024-09-17 22:50 | PC.NURSE ---
patient up to use commode x1 assist, BMx1, upon finishing patient is refusing to go back into bed stating that she would like to leave and be transferred to another area as she does not like this area, re-directed by this documentation writer/staff that patient will be here for the remainder of her time in the ED until placement has been established, patient continuously refusing to get back into bed, ED clinical coordinator notified, hospital security called to bedside to assist with patient redirection, patient now requesting a sponge bath and to be cleaned up, patient back into bed, appropriately cleaned, powder/cream applied to affected areas of body, patient now resting comfortably, VSS, respirations even and unlabored, wctm
[2024-09-17 23:39] VITALS: BP 135/63; PULSE 71; RESP 16; TEMP 36.5; O2SAT 98
--- NOTE | 2024-09-18 01:43 | PC.NURSE ---
patient calling to use the bathroom, upon arrival to room patient stating that she would like to see the other nurse, this business writer offered to help patient up to commode however patient is refusing to work with myself and tech on floor, otherwise stable, respirations even and unlabored, NAD, wctm
--- NOTE | 2024-09-18 07:53 | PC.NURSE ---
Addendum entered by Su Shearer RN 09/18/24 07:56: Patient is a 74-year-old female, with a past medical history of ILD with chronic hypoexmic respiratory failure on 3 L supplemental O2 at baseline, GERD, hypertension, unspecified asthma, hypothyroidism, unspecified peripheral neuropathy, who is morbidly obese n, who presents emergency department with concerns of rash. Patient was seen here in the emergency room on September 12, 2024 and was discharged on hydrocortisone and clotrimazole cream she has been using this and has not had any significant improvement, denies rash worsening. Patient also reports that she would like to be placed in a intermediate as she is having increased difficulty taking care of herself at home. Patient alert and oriented, morbidly obese with rashes noted under breasts, panus and groin folds. Lungs essentially clear but decreased. Respirations even and non-labored. Abdomen obese, large, soft, non-tender with positive bowel sounds. Positive pedal pulses with LE edema noted. Original Note: Medical History Aspiration pneumonia Acute hypercapnic respiratory failure Acute respiratory failure with hypoxia and hypercapnia IBS (irritable bowel syndrome) Respiratory failure Interstitial lung disease Seasonal allergies Diarrhea Neuropathy Asthma Hypercholesteremia GERD (gastroesophageal reflux disease) Thyroid activity decreased Hypertension
[2024-09-18 08:00] VITALS: BP 145/73; PULSE 73; RESP 18; TEMP 36.9; O2SAT 100
--- NOTE | 2024-09-18 13:36 | MHC.CM.ED ---
Patient remains in ER overflow. [facility] has received [facility] level[facility] from [facility]. Patient can leave at 4pm. Nathaly HERNANDEZ booked. Med [facility] with chart. Patient, Zak Hagan RN and Amparo MENENDEZ aware. Continue to monitor for d/c needs.
[2024-09-18 13:46] VITALS: BP 137/50; PULSE 90; RESP 18; TEMP 37.3; O2SAT 100
--- NOTE | 2024-09-18 16:07 | PC.NURSE ---
Report attempted x 2 without effect. No answer noted.
[2024-09-18 16:09] VITALS: BP 137/50; PULSE 90; RESP 18; TEMP 37.3; O2SAT 100
== END 2024-09-18 16:09 | disposition skilled nursing facility (03) ==
PROVIDERS: Physician Assistant; Physician Assistant Medical; Emergency Provider Emergency Medicine Emergency Medical Services; PCP Internal Medicine
DX: B37.2 Candidiasis of skin and nail (principal); L30.4 Erythema intertrigo; R21 Rash and other nonspecific skin eruption; R26.81 Unsteadiness on feet; I10 Essential (primary) hypertension; Z99.81 Dependence on supplemental oxygen; Z79.899 Other long term (current) drug therapy; Z03.818 Encounter for observation for suspected exposure to other biological agents ruled out
CPT/HCPCS: 0241U; 36415; 80048; 80076; 83735; 85025; 97162; 99284; 99285

== ENCOUNTER → 2024-10-27 23:59 | Outpatient (BNV) | payer MEDICARE, MEDICAID, SELFPAY | PROVIDERS: PCP Internal Medicine; Visit Provider Internal Medicine | DX: J84.9 Interstitial pulmonary disease, unspecified (principal); J96.11 Chronic respiratory failure with hypoxia; J45.909 Unspecified asthma, uncomplicated | CPT/HCPCS: G0180 ==

== ENCOUNTER 2024-10-28 15:42 | Outpatient (AMB) | payer MEDICARE, MEDICAID, SELFPAY ==
--- NOTE | 2024-10-28 15:44 | MHC.PC.OV ---
Intake Visit Reasons: [facility] 09/24 lung disease Hosiery Knitter Required: No Accompanied by: abulance transportation Allergies celecoxib (From CELEBREX) Allergy (Unknown, Verified 10/29/24 01:17) RASH Latex, Natural Rubber Allergy (Unknown, Verified 10/29/24 01:17) Rash ibuprofen (IBUPROFEN) Adverse Reaction (Intermediate, Verified 10/29/24 01:17) RASH Medication List - Last Reconciled 10/29/24 by Bennie Roland MD atorvastatin 10 mg PO BEDTIME carvedilol 6.25 mg PO BID cetirizine 10 mg PO DAILY clotrimazole 1% 1 appl topical BID 4 weeks dexlansoprazole (Dexilant) 60 mg PO DAILY@0630 dicyclomine 10 mg PO TID PRN ferrous sulfate 325 mg PO DAILY 90 days fexofenadine 180 mg PO DAILY furosemide 80 mg PO DAILY hydrocortisone 2.5% 1 appl topical DAILY L.rhamnosus-B.animalis 3 billion cell ([employer]) 1 cap PO DAILY levothyroxine 50 mcg PO DAILY@0600 losartan 25 mg PO DAILY magnesium oxide 400 mg PO DAILY 30 days methylcellulose (laxative) (Citru[employer]) 500 mg PO DAILY montelukast 10 mg PO BEDTIME nystatin (Nystop) 1 appl topical TID ondansetron HCl 4 mg PO Q8H PRN pregabalin 225 mg PO BID triamcinolone acetonide 2 sprays intranasal DAILY Tobacco use date assessed: 10/28/24 Fall risk assessment: No Falls in past year Last assessed Fall Risk: 10/28/24 Dental Screening Dental Screen Date: 10/28/24 Did you have a dental visit in the last 12 months?: No Did you have a dental problem in the last 6 months where you did not have access to dental care?: No Was dental information given to patient?: No HPI [facility] 09/24 lung disease HPI Details Patient comes in today for her follow up visit She was admitted to short-term rehab for a couple of weeks after she presented to the ER last month with a persistent itchy rash over legs and over the inguinal areas bilaterally as well as difficulty with ambulation She was seen at the ER 1 week prior for the same rash and was started on 1 dose of oral fluconazole as well as topical antifungals, which patient states were not helping and prompted her to return to the ER a week later with the same complaints It was during this 2nd visit to the ER that she asked for short-term rehab due to increasing difficulty in ambulation and self-care at home Patient states that her short-term rehab went well and she is now able to ambulate with assistance at home and with the use of a walker but her rash persisted - patient feels that this has only improved partially while she was at rehab She denies any fever, headaches or dizziness Denies any chest pains, no shortness of breath No nausea/vomiting, no abdominal pain No change in bowel habits noted [facility] Medical History Aspiration pneumonia Acute hypercapnic respiratory failure Acute respiratory failure with hypoxia and hypercapnia IBS (irritable bowel syndrome) Respiratory failure Interstitial lung disease Seasonal allergies Diarrhea Neuropathy Asthma Hypercholesteremia GERD (gastroesophageal reflux disease) Thyroid activity decreased Hypertension Surgical History Hx of cataract surgery H/O: hysterectomy History of cholecystectomy Family History Mother Asthma Father No problems noted. 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 Housing: Apartment Housing Other:: [employer] Do you presently have visiting nurse or other home services: Yes (Home health aide M,Wed,Fri, few hours ; no RN involvement) Unable to assess alcohol history related to: Unknown Alcohol intake: never Patient Tobacco Use Status: Never used Tobacco e-Cigarette/Vaping Use: Never Used Second Hand Smoke Exposure: No Advance Directives Date on File: 07/05/23 service: No Current occupational status: retired Cognitive needs: Yes (Walker) Hearing needs: Yes (Hearing aids) Vision needs: Yes (Glasses) Questionnaire PHQ-9 Over the last 2 weeks, how often have you been bothered by any of the following problems? 1. Little interest or pleasure in doing things: not at all 2. Feeling down, depressed, or hopeless: not at all 3. Trouble falling or staying asleep, or sleeping too much: not at all 4. Feeling tired or having little energy: not at all 5. Poor appetite or overeating: not at all 6. Feeling bad about yourself - or that you are a failure or have let yourself or your family down: not at all 7. Trouble concentrating on things, such as reading the newspaper or watching television: not at all 8. Moving or speaking so slowly that other people could have noticed. Or the opposite - being so fidgety or restless that you have been moving around a lot more than usual: not at all 9. Thoughts that you would be better off or of hurting yourself in some way: not at all Total score: 0 Depression Screening Interpretation: Negative Depression Screening Done: Yes 68554 - PHQ-9 Billing: Yes Source: Developed by Drs. Gee Westbrook, Kasey Hatch, Cuate Elder and colleagues, with an educational terence from [employer]. Thrive Questionnaire Date Thrive assessed: 10/28/24 I am a: Patient What is your living situation today?: I have a steady place to live Within the past 12 months, did the food you bought not last and you didn't have the money to get more?: Never true Within the past 12 months, did you worry whether your food would run out before you got money to buy more?: Never true Do you have trouble paying for medicines?: No Do you have trouble getting transportation to medical appointments?: No Do you have trouble paying your heating and electricity bill?: No Do you have trouble taking care of your child, family member or friend?: No Do you have trouble with day-to-day activities such as bathing, preparing meals, shopping, managing finances, etc.?: No Are you currently unemployed and looking for a job?: No Are you interested in more education?: No Please select the resources that you would like help with: None Currently or been in a relationship where the following occur: No concerns reported THRIVE Score: 0 AUDIT C Alcohol Use Questionnaire (AUDIT-C) 1. How often do you have a drink containing alcohol?: Never 3. How often do you have six or more drinks on one occasion?: Never Total Score: 0 Score Reviewed/Action Taken: Yes ADAN-7 AMB Questionnaire ADAN-7 Date ADAN - 7 assessed: 10/28/24 Feeling nervous, anxious, or on edge: 0 = Not at all Not being able to stop or control worryin = Not at all Worrying too much about different things: 0 = Not at all Trouble relaxin = Not at all Being so restless that it is hard to sit still: 0 = Not at all Becoming easily annoyed or irritable: 0 = Not at all Feeling afraid as if something awful might happen: 0 = Not at all Total ADAN-7 score (0-4 normal; 5-9 mild; 10-14 moderate; 15-21 severe): 0 Source: Developed by Drs. Gee Westbrook, Kasey Hatch, Cuate Elder and colleagues, with an educational terence from [employer]. Review of Systems Const Denies chills, Denies fatigue, Denies fever(s) and Denies headache(s) ENT Denies dysphagia, Denies dizziness, Denies otalgia, Denies headache(s), Denies neck pain, Denies odynophagia and Denies sore throat Card Denies chest pain, Denies palpitations and Denies dyspnea Resp Denies cough and Denies dyspnea GI Denies abdominal pain, Denies constipation, Denies dysphagia, Denies heartburn, Denies diarrhea, Denies nausea, Denies odynophagia and Denies vomiting Denies difficulty voiding, Denies nocturia and Denies dysuria Musc Reports abnormal gait (difficulty in ambulation), Denies back pain and Denies neck pain Skin/Breast Details: (+) diffuse/scattered rash over her lower abdomen, bilateral inguinal areas and over the proximal thighs Neuro Reports abnormal gait (difficulty in ambulation), Denies dizziness and Denies headache(s) Endo Denies fatigue and Denies palpitations Physical exam (Primary Care) Tobacco/Smoking Status: Tobacco use Status Tobacco use date assessed 10/28/24 10/28/24 15:56 Patient Tobacco Use Status Never used Tobacco 10/28/24 15:47 e-Cigarette/Vaping Use Never Used 10/28/24 15:47 PHQ-9: PHQ-9 Score PHQ-9: Total score 0 10/28/24 16:39 Depression Screening Interpretation: Negative Thrive Assessment: Date of Thrive Assessment Date Thrive assessed 10/28/24 10/28/24 15:56 Currently or been in a relationship where the following occur: No concerns reported Const General: no acute distress and alert Limitations: physical limitations (limited ambulation and self-care) HENMT Throat: Yes posterior oropharynx normal and Yes tonsils normal (no TP congestion) Neck Neck: Yes supple and No lymphadenopathy Thyroid: Thyroid normal Resp Auscultation: clear to auscultation bilaterally, no rales and no wheezes Cardio Rate: regular rate Rhythm: regular rhythm Heart sounds: no murmurs GI Palpation (GI): Soft to palpation and nontender Auscultation: normal bowel sounds General: Yes no CVA tenderness Back/Spine/Pelvis Back: no CVA tenderness Thoracic/Lumbar Spine: No lumbar spinal tenderness Skin Other: (+) large patches of erythematous rash over her lower abdomen, bilateral inguinal areas and over the proximal thighs Extrem General: Yes no clubbing, cyanosis or edema Coding Level of Care Code Est Pt Level 4 (91853) Diagnoses Candidal intertrigo B37.2 Physical deconditioning R53.81 Obesity hypoventilation syndrome E66.2 Additional Codes PHQ-9 - 92760 - PHQ-9 Billing: Yes ([id number]) Assessment & Plan Assessment & Plan (1) Candidal intertrigo: Code(s): B37.2 - Candidiasis of skin and nail Category: Medical Plan: Patient apparently has been treated for this over the past month with a single dose of oral fluconazole 150 mg as well as topical antifungal creams with partial results Will go ahead and start her instead on nystatin powder [id number] units/gm to apply to her rash TID for the next 7 to 10 days She is advised that the powder formulation may work better for her as it will help dry out her rash better than the topical creams would (2) Physical deconditioning: Code(s): R53.81 - Other malaise Category: Medical Plan: S/P short-term rehab x 2 weeks Patient states that she continues to receive services at home and will continue with some form of home PT (3) Obesity hypoventilation syndrome: Comment: PATIENT HAS CHRONIC SLEEP APNEA/HYPOVENTILATION SYNDROME. UNFORTUNATELY UNABLE TO USE THE CPAP OR BIPAP. Code(s): E66.2 - Morbid (severe) obesity with alveolar hypoventilation Category: Medical Plan: Patient has not been able to tolerate the use of a CPAP or Bipap device Follow up with sleep medicine as scheduled Plan Follow up with PCP as scheduled in January 2025 Medications: New nystatin (Nystop) 1 appl topical TID 60 grams 1RF
--- OUTSIDE RECORDS SUMMARY | 2024-10-28 16:28 | XMS_ITS | Encounter Summary ---
Author Organization [facility] Address [address] [place] [address] Care Team Providers Care Bridges Supervisor Name Role Phone Unavailable Primary Care Provider Unavailabl e Encounter Details Date Type Department Care Team (Late Contact Info) Description 10/03/2024 Lab Requisition [facility] - Main Lab [address] [facility] [place] [address] Mario Dejesus MD [address] [place] [address] Essential (primary) hypertension; Hypothyroidism, unspecified; Pure hypercholesterolemia , unspecified Social History Tobacco Use Types Packs/Day Years [...] on file documented as of this encounter Plan of Treatment Upcoming Encounters Date Type Department Care Team (Late Contact Info) Description 07/09/2025 1:00 PM EDT Office Visit Gastroenterology - [place] [address] [place] [address] Guera Tejada PA [address] [place] [address] documented as of this encounter Visit Diagnoses Diagnosis Essential (primary) hypertension Unspecified essential hypertension Hypothyroidism, unspecified Pure hypercholesterolemia, unspecified documented in this encounter
--- OUTSIDE RECORDS SUMMARY | 2024-10-28 16:28 | XMS_ITS | Encounter Summary ---
Author Organization [facility] Address [address] [facility] [address] [place] [address] Phone Care Team Providers Care Vending Machine Refiller Name Role Phone Hilda Khalil MD Primary Care Provider [phone] Reason for Visit * Reason Comments Med Refill Encounter Details Date Type Department Care Team (Late st Contact Info) Description 05/04/2023 Refill [facility] [address] [facility] [address] [facility] [facility] [address] [place] [address] Butch Sharpe MD [id number] [address] Social History Tobacco Use Types [...] [facility] [address] [facility] [address] [place] [address] Butch hSarpe MD [facility] [address] [place] [address] documented as of this encounter Visit Diagnoses Not on filedocumented in this encounter Care Teams Vending Machine Refiller Relationship Specialty Start Date End Date Hilda Khalil MD [address] [place], [place] PCP - General Internal Medicine 08/13/24 documented as of this encounter
--- OUTSIDE RECORDS SUMMARY | 2024-10-28 16:29 | XMS_ITS | Data Portability ---
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 No pain; is pruritic. Tried applying triple antibiotic ointment and topical ciclopirox and ketoconazole that she had from previous skin infections without relief. No fever or chills. Exam: pleasant, non-toxic female in no acute distress; afebrile with VS WNL; tongue dry, blackened as in PE; no adenopathy; erythema originating along center to left mandible extending to neck with crustations at center. + warmth; approx 7cm x 5cm of erythema; lungs bilat clear; abd assessment negative; no edema DDx considered, but not limited to: -Wound cellulitis: present s/p bug bite with scratching -Abscess: Considered secondary to drainage, no fluctuance -Impetigo: considered secondary to crust Work up/Results: None indicated Plan/Discussion: -Clean daily, apply mupirocin topically TID -Doxycycline 100mg BID x 7 days -Mupirocin TID topically -Increase probiotics -[place] tongue/oral hygiene s/p thrush -PCP follow up/ED precautions Proper Personal Protective Equipment (PPE), including gloves, eye protection and masks were donned and doffed appropriately and all equipment cleaned using approved technique with germicidal disposable wipes prior to and after care of this patient according to [facility]. [email or web address] Not available 07/27/2021 15:24:44 04/21/2022 04/21/2022 Overview/History : 71 YO F new to provider but known to She is being seen today at home PMH of COPD, HTN/HLD, CKD Being seen for dysuria, x weeks No vaginal dc or bleeding Nothing makes sxs better or worse She is requesting testing for UTI She denies any fever, chills, abd pain, NVD, weakness, flank pain, bloody urine. No other reported sxs or concerns today. Exam: Vitals: VSS and afebrile Constitutional: 71 yo Well developed, well nourished, pleasant patient in no apparent distress. Upright comfortable and not toxic appearing. Eyes: No swelling, no discharge, sclera / conjunctiva clear CV: RRR, no rubs/ murmurs/ gallops heard, 2+ radial pulses bilaterally Pulm: breath sounds clear and equal bilaterally, no wheeze/ rhonchi or rales on auscultation. Speaks in full sentences, no increased work of breathing. On baseline O2 via NC. GI: Soft, non-tender to palpation. No masses, normal bowel sounds. No guarding and no distension. : No CVA tenderness bilaterally. No suprapubic tenderness. Vaginal exam deferred. MS: Self ambulatory patient w/ her walker, get up and go noted, moves all limbs without deficit, no evidence of trauma Neuro: No focal deficits, A&O x4, gait is not ataxic. Skin: No rash, visible skin is cdi Psych: Calm, cooperative, non-manic. Pleasant. DDx considered, but not limited to: UTI - not super suspicious dip, dysuria is sx, no fever and no suprapubic tenderness, sending cx to workup further Pyelo - no flank pain, no fever, no abd pain, no NVD, not suspicious dip, do not suspect pyelo Sepsis - VSS, afebrile, well appearing Vaginal Irritation - possible vaginal dryness as cause of sxs, defer vaginal exam on scene, n dc or bleeding, dysuria, perhaps needs for lubricants and vaginal skin care Nephrolithiasis - no CVA tenderness, no severe pain, no visible blood in urine Work up/Results: Urine dip, not very suspicious for UTI, mild leuks and blood Urine cx pending Plan/Discussion: Dysuria: -Not very suspicious dip, she has no fever, and no flank pain or suprapubic tenderness. -Doubt UTI but will confirm w/ cx d/t sxs -Will start abx if positive -Discussed need to f/u with PCP and possible uro for further workup goven blood in her urine finding and her cont sxs -If sxs change she is to f/u for re-eval -ED precautions discussed Pt is on agreement and verbalizes understanding with the above plans at this time. Pt has no other questions or concerns at this time. All questiosn are answered to the best of my ability. Pt thanks us for our visit today. isra Not available 04/21/2022 17:37:40 Plan of Treatment Reminders Order Date Submit Date Provider Last Modified By Organization Details Last Modified Time Details Appointments None recorded. Lab urinalysis, dipstick 2022 023 isra [facility], [address] [place] [address], [id number], 15:10:50 culture, urine 2022 023 BALTAZAR [facility] (Centralized Electronic Ordering - All Locations), Patient Can Go To The Location Of Their Choice, [id number] 06:44:42 Referral None recorded. Procedures None recorded. Surgeries None recorded. Imaging None recorded. Medication Orders doxycycline hyclate 100 mg capsule 2021 022 [facility], [address] [place], [address], 15:04:21 mupirocin 2 % topical ointment 2021 022 [employer] [facility], [address] [place], [id number], 14:44:37 Patient TargetsNo targets recorded. Patient Instructions Encounter Date Encounter Id Patient Instructions Last Modified By Organization Details Last Modified Time 07/27/2021 [id number] -You were seen today for bug bite with skin infection of your chin -Wash daily with soap and water, dry thoroughly -Apply mupirocin ointment 3 times a day for 7 days -Take doxycycline twice a day for 7 days -Scrub tongue with toothbrush and toothpaste -While on antibiotics increase yogurt/Kefir/pro biotics to twice a day -Call your PCP for follow up but seek medical attention if any increased redness, pain, drainage or fever cresencio Not available 07/27/2021 14:47:53 Reason for Referral None Reported. Results Created Date Observation Date Name Description Value Unit Range Abnormal Flag Note LastModifiedBy Organization Detail LastModifiedTime 04/21/1904/22/2022 URINE CULTU RE specimen description CLEAN CATCH (URINE ) Not Available [facility] (Centralized Electronic Ordering - All Locations) Patient Can Go To The Location Of Their Choice, [id number] 04/23/2022 06:44:42 04/21/1904/22/2022 URINE CULTU RE special requests NONE Not Available [facility] (Centralized Electronic Ordering - All Locations) Patient Can Go To The Location Of Their Choice, [id number] 04/23/2022 06:44:42 04/21/1904/23/2022 URINE CULTU RE culture Mixed bacter ial gianluca, indica tive of urogen ital contam inatio n. Not Available [facility] (Centralized Electronic Ordering - All Locations) Patient Can Go To The Location Of Their Choice, [id number] 04/23/2022 06:44:42 04/21/1904/23/2022 URINE CULTU RE report status FINAL 2022 Not Available [facility] (Centralized Electronic Ordering - All Locations) Patient Can Go To The Location Of Their Choice, [id number] 04/23/2022 06:44:42 04/21/1904/21/2022 urina lysis , dipst ick Appearance xcloud y Not Available [facility] [address] [place], [address], 04/21/2022 15:09:41 04/21/19 23 04/21/2022 urina lysis , dipst ick Color yellow Not Available [facility] [address], [place], [address], 04/21/2022 15:09:41 04/21/19 23 04/21/2022 urina lysis , dipst ick Glucose (ref: neg Neg Not Available [facility] [address] [place], [address], 04/21/2022 15:09:41 04/21/19 23 04/21/2022 urina lysis , dipst ick Bilirubin (ref: neg) Neg Not Available [facility] [address], [place], [address], 04/21/2022 15:09:41 04/21/19 23 04/21/2022 urina lysis , dipst ick Ketones (ref: neg) Neg Not Available [place] [address] [place], [address], 04/21/2022 15:09:41 04/21/19 23 04/21/2022 urina lysis , dipst ick Specific Eure (ref: 1.003 - 1.035) 1.020 Not Available [place] [address], [place], [address], 04/21/2022 15:09:41 04/21/19 23 04/21/2022 urina lysis , dipst ick Blood (ref: neg) Not Available [place] [address], [place], [address], 04/21/2022 15:09:41 04/21/19 23 04/21/2022 urina lysis , dipst ick pH (ref: 5.0-7.0) 5.0 Not Available [place] [address] [place], [address], 04/21/2022 15:09:41 04/21/19 23 04/21/2022 urina lysis , dipst ick Protein (ref: neg) Not Available [place] [address] [place], [address], 04/21/2022 15:09:41 04/21/19 23 04/21/2022 urina lysis , dipst ick Urobilinogen (ref: 0.2-1.0) 0.2 Not Available [facility] [address], [place], [address], 04/21/2022 15:09:41 04/21/19 23 04/21/2022 urina lysis , dipst ick Nitrites (ref: neg) negati ve Not Available [facility] [address], [place], [address], 04/21/2022 15:09:41 04/21/19 23 04/21/2022 urina lysis , dipst ick Leukocytes (ref: neg) Neg Not Available [facility] [address], [address], 04/21/2022 15:09:41 04/21/19 23 04/21/2022 urina lysis , dipst ick [facility], [address] [place] [id number], [id number] Not Available [facility] - [address], [address], 04/21/2022 15:09:41 Result Notes None recorded. Procedures Surgical History Date Name Laterality Status Provider Name and Address Organization Details Recorded Time Total Hysterectomy completed Kasey Zambrano NP [address] [place], [address], [place] [facility] 07/27/2021 14:29:38 Cholecystectomy completed Kasey Zambrano NP [address] [place], [address], [place] [facility] 07/27/2021 14:29:45 excision of bunion completed Kasey Zambrano NP [address] [place], [address], [place] [facility] 07/27/2021 14:29:54 Cataract Surgery completed Kasey Zambrano NP [address] [place], [address], [place] [facility] 07/27/2021 14:30:08 Imaging Results None recorded. Procedure Notes None recorded. Medical Equipment None Reported. Allergies Allergen ID Allergen Name Allergen Category Reaction Reaction Severity Criticality Documentation Date Start Date Code Code System Note Provider Name and Address Organization Details Recorded Time 903298 Celebrex medicatio n Not available Not available Not available 07/27/2021 35844 7 RxNorm Kasey GranadosTIERNEY connelly [address] [place], [address], [place] [facility] 14:25:13 828489 ibuprofen medicatio n Not available Not available Not available 07/27/2021 5640 RxNorm Kasey DarwinTIERNEY connelly [address], [place], [address], [place] [facility] 14:25:21 Medications Name Sig Start Date Stop Date Status Note LastModified by Organization Details LastModified Time furosemide 40 mg tablet TAKE ONE TABLET BY MOUTH ONCE DAILY active Not Available Not Available No t Available fluconazole 100 mg tablet TAKE ONE TABLET BY MOUTH EVERY DAY 07/27 completed Not Available Not Available Not Available nystatin 100,000 unit/mL oral suspension TAKE 4 ML BY MOUTH THREE TIMES A DAY FOR 10 DAYS 07/27 completed Not Available Not Available Not Available carvedilol 6.25 mg tablet TAKE ONE TABLET BY MOUTH TWO TIMES A DAY WITH MEALS active Not Available Not Available No t Available doxycycline hyclate 100 mg capsule TAKE ONE CAPSULE BY MOUTH TWICE A DAY FOR 7 DAYS 04/21 completed Not Available Not Available Not Available cetirizine 10 mg tablet TAKE ONE TABLET BY MOUTH EVERY DAY active Not Available Not Available No t Available atorvastati n 10 mg tablet TAKE ONE TABLET BY MOUTH ONCE DAILY AT BEDTIME active Not Available Not Available No t Available fluconazole 150 mg tablet TAKE ONE TABLET BY MOUTH EVERY DAY 07/27 completed Not Available Not Available Not Available famotidine 40 mg tablet TAKE 1 TABLET BY MOUTH ONCE DAILY 07/27 completed Not Available Not Available Not Available magnesium oxide 400 mg (241.3 mg magnesium) tablet TAKE ONE TABLET BY MOUTH EVERY DAY active Not Available Not Available No t Available levothyroxi ne 50 mcg tablet TAKE ONE TABLET BY MOUTH EVERY DAY active Not Available Not Available No t Available pantoprazol e 40 mg tablet,dwaine yed release TAKE ONE TABLET BY MOUTH ONCE DAILY 07/27 completed Not Available Not Available Not Available ferrous sulfate 325 mg (65 mg iron) tablet TAKE ONE TABLET BY MOUTH EVERY DAY active Not Available Not Available No t Available clotrimazol e-betametha sone 1 %-0.05 % topical cream APPLY TO AFFECTED AREA(S) TWO TIMES A DAY 07/27 completed Not Available Not Available Not Available losartan 25 mg tablet TAKE ONE TABLET BY MOUTH EVERY DAY active Not Available Not Available No t Available Advair Diskus 250 mcg-50 mcg/dose powder for inhalation INHALE ONE PUFF BY MOUTH TWICE A DAY active Not Available Not Available No t Available montelukast 10 mg tablet TAKE ONE TABLET BY MOUTH AT BEDTIME active Not Available Not Available No t Available mupirocin 2 % topical ointment APPLY TO AFFECTED AREA S) THREE TIMES A DAY NEEDED active Not Available Not Available No t Available cefuroxime axetil 500 mg tablet TAKE ONE TABLET BY MOUTH TWICE A DAY 07/27 completed Not Available Not Available Not Available ketoconazol e 2 % topical cream APPLY TO AFFECTED AREA(S) TWO TIMES A DAY 07/27 completed Not Available Not Available Not Available clotrimazol e 1 % topical cream APPLY TO AFFECTED AREA S) THREE TIMES A DAY active Not Available Not Available No t Available dicyclomine 10 mg capsule TAKE ONE CAPSULE BY MOUTH THREE TIMES A DAY NEEDED FOR DIARRHEA active Not Available Not Available No t Available metoclopram anat 10 mg tablet TAKE ONE TABLET BY MOUTH TWICE A DAY 07/27 completed Not Available Not Available Not Available amoxicillin 875 mg-potassiu m clavulanate 125 mg tablet TAKE ONE TABLET BY MOUTH TWICE A DAY 07/27 completed Not Available Not Available Not Available ciclopirox 0.77 % topical cream APPLY LOCALLY TWO TIMES A DAY 07/27 completed Not Available Not Available Not Available pregabalin 150 mg capsule TAKE ONE CAPSULE BY MOUTH TWO TIMES A DAY 07/27 completed Not Available Not Available Not Available pregabalin 225 mg capsule TAKE 1 CAPSULE BY MOUTH TWICE A DAYFOR 90 DAYS active Not Available Not Available No t Available dexlansopra zole 60 mg capsule,bip hase delayed release TAKE ONE CAPSULE BY MOUTH EVERY DAY active Not Available Not Available No t Available Breo Ellipta 100 mcg-25 mcg/dose powder for inhalation INHALE ONE PUFF DAILY 07/27 completed Not Available Not Available Not Available Nasacort 55 mcg nasal spray aerosol SPRAY 2 SPRAYS IN EACH NOSTRIL DAILY active Not Available Not Available No t Available oxygen active Not Available Not Availa ble Not Available Vitals Date Recorded Heart rate Body temperature Respiratory rate Oxygen saturation Oxygen saturation in Arterial blood by Pulse oximetry Inhaled oxygen flow rate Systolic And Diastolic Provider Name and Address Organization Details Last Updated DateTime 3 66 /min 98.3 [degF] 18 /min 99 % 99 % 4 L/min 144/76 mm[Hg] Not Available [facility] 15:20:12 Date Recorded Oxygen saturation Oxygen saturation in Arterial blood by Pulse oximetry Inhaled oxygen flow rate Respiratory rate Body temperature Heart rate Systolic And Diastolic Provider Name and Address Organization Details Last Updated DateTime 2 98 % 98 % 2.5 L/min 18 /min 97.3 [degF] 78 /min 122/66 mm[Hg] Not Available [facility] 14:28:34 Social History Question Answer Notes LastModified by Organizat ion Details LastModified Time Tobacco Smoking Status Never Smoker Kasey Zambrano NP [address], [place], [address], [place] [facility] 07/27/2021 14:26:54 Do You Have An Advance Directive? Yes 77 Pieces Information not available 07/27/2021 What Is Your Code Status? Full Code 77 Pieces Information not available 07/27/2021 Within The Past 12 Months, Has It Happened That The Food You Bought Just Didn't Last And You Didn't Have Money To Get More. No 77 Pieces Information not available 07/27/2021 Within The Past 12 Months, Have You Worried That Your Food Would Run Out Before You Got Money To Buy More. No 77 Pieces Information not available 07/27/2021 Fall Risk: Do You Feel Unsteady When Standing Or Walking? No [employer] Information not available 07/27/2021 Excessive Alcohol Or Drug Use No 77 Pieces Information not available 07/27/2021 Does This Patient Have A PCP? Yes [facility] Information not available 07/27/2021 Has The Patient Seen Their PCP In The Past 6 Months? Yes [facility] Information not available 07/27/2021 We Know From Many Of Our Patients That Covering All Of Their Costs Can Be Difficult At Times. This Can Cause Stress And Impact Health. In The Past Year, Have You Been Unable To Get Any Of The Following When It Was Really Needed? No [facility] Information not available 07/27/2021 What Is Your Housing Situation Today? I Have Housing [facility] Information not available 07/27/2021 Sex: Unknown Functional Status Question Answer Note LastModified by Organizat ion Details LastModified Time Do you use any illicit or recreational drugs? No [facility] Information not available 07/27/2021 Do you or have you ever used any other forms of tobacco or nicotine? No [facility] not available 07/27/2021 What is your level of alcohol consumption? None [facility] Information not available 07/27/2021 Mental Status None recorded. Family History Relationship Description Onset Age of this Age Resolved Age Notes LastModified by Organization Details LastModified Time Mother Diabetes mellitus [facility]well Not available 07/27 14:25:57 Mother Hypertensive disorder jhelliwell Not available 07/27 14:26:06 Medical History Condition Response Coronary Artery Disease N Parkinson's Disease N COPD Y Depression N Hypothyroidism Y A-fib N Diabetes N CHF Y Cancer N Dementia N Stroke N Asthma N High Cholesterol Y Rheumatoid Arthritis N Pulmonary Embolism N Hypertension Y Osteoporosis N Kidney Disease Y Gynecological HistoryNo gynecological history recorded. Obstetrics History GPAL:G 0 P 0 0 0 0 Past Encounters Encounter ID Performer Location Encounter Start Date Encounter Closed Date Diagnosis/Indication Diagnosis SNOMED-CT Code Diagnosis ICD10 Code Diagnosis Note [id number] Kasey Zambrano NP [facility] [address] [facility] [place] [address] 07/27/2021 14:17:54 07/28/2021 20:06:53 Wound cellulitis 484659050 L03.90 [id number] SHON Dang [facility] [address] [facility] [place] [address] 04/21/2022 14:43:55 04/26/2022 15:25:53 Dysuria 76516629 R30.0 Health Concerns Section Related Observation LastModified by Organization Detai ls LastModified Time None Recorded Concern Status LastModified by Organization Details LastModified Time None Recorded Advance Directives Directive Y: Payers Insurance Date Sequence Insurance Name Policy Number Policy Burgess Covered Member ID Burgess Member ID Guarantor Name 05/15/2022 1 [place] B[place]: [employer] Jocelynn Fernando [id number] Jocelynn Fernando 05/15/2022 2 [place] [facility] Joc[facility] Fernando [id number] Jocelynn Fernando 05/15/2022 1 *SELF PAY* Jocelynn Fernando [id number] Jocelynn Fernando Notes Date Note Type Note Provider Name and Address Organization Details Recorded Time 2 text/html 70 year old female with a history of 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 No pain; is pruritic. Tried applying triple antibiotic ointment and topical ciclopirox and ketoconazole that she had from previous skin infections without relief. No fever or chills. Kasey Zambrano NP [address], [place], [address], [place] [facility] 07/27/2021 15:24:55 3 text/html 71 YO F new to provider but [facility] at homePMH of COPD, HTN/HLD, CKDBeing seen for dysuria, x weeksNo vaginal dc or bleedingNothing makes sxs better or worseShe is requesting testing for UTIShe denies any fever, chills, abd pain, NVD, weakness, flank pain, bloody urine. No other reported sxs or concerns today. SHON Landaverde [address], [place], [address], [place] [facility] 04/21/2022 17:38:08 OBGyn Episode No OBEpisode recorded.
--- OUTSIDE RECORDS SUMMARY | 2024-11-30 20:00 | XMS_ITS | Clinical Summary ---
Author Organization Unknown Care Team Providers Care Pharmacy Teacher Name Role Phone ANGELES CASPER MD, TRI Unavailable Unavailable VALERIE RN, LISET Unavailable Unavailab melody RAMIREZ PT, ZARINA Unavailable Unavailable READING OT, CLEM Unavailable Unavailable GRIFFIN LEVINE ST, HEATHER Unavailable Unavailable [facility], [facility] Unavailable Unavailable Payers Payer Name Policy Type Policy Number Effective Date Expira tion Date MEDICARE.NGS.PDGM [id number] Problems Condition Name Condition Details Condition Category Status Onset Date Resolution Date Last Treatment Date Treating Clinician Comments INTERSTITIAL PULMONARY DISEASE, UNSPECIFIED Active 10-02 00:00: 00 CHRONIC RESPIRATORY FAILURE WITH HYPOXIA Active 10-02 00:00: 00 UNSPECIFIED ASTHMA, UNCOMPLICATE D Active 10-02 00:00: 00 URINARY TRACT INFECTION, SITE NOT SPECIFIED Active 09-26 00:00: 00 ESSENTIAL (PRIMARY) HYPERTENSION Active 10-02 00:00: 00 DEPRESSION, UNSPECIFIED Active 10-02 00:00: 00 ANEMIA, UNSPECIFIED Active 10-02 00:00: 00 POLYNEUROPAT HY, UNSPECIFIED Active 10-02 00:00: 00 DYSPHAGIA, OROPHARYNGEA L PHASE Active 10-02 00:00: 00 CANDIDIASIS OF SKIN AND NAIL Active 10-02 00:00: 00 MORBID (SEVERE) OBESITY WITH ALVEOLAR HYPOVENTILAT ION Active 10-02 00:00: 00 RASH AND OTHER NONSPECIFIC SKIN ERUPTION Active 10-02 00:00: 00 HYPOTHYROIDI SM, UNSPECIFIED Active 10-02 00:00: 00 CONSTIPATION , UNSPECIFIED Active 10-02 00:00: 00 PURE HYPERCHOLEST EROLEMIA, UNSPECIFIED Active 10-02 00:00: 00 GASTRO-ESOPH AGEAL REFLUX DISEASE WITHOUT ESOPHAGITIS Active 10-02 00:00: 00 HYPOMAGNESEM IA Active 10-02 00:00: 00 DEPENDENCE ON SUPPLEMENTAL OXYGEN Active 10-02 00:00: 00 BODY MASS INDEX [BMI] 50.0-59.9, ADULT Active 10-02 00:00: 00 ACQUIRED ABSENCE OF OTHER SPECIFIED PARTS OF DIGESTIVE TRACT Active 10-02 00:00: 00 Allergies, Adverse Reactions, Alerts Allergy Name Allergy Type Status Severity Reaction(s) Onset Date Inactive Date Treating Clinician Comments IBUPROFEN Propensity to adverse reactions Active 10-03 12:05: 43 CELEBREX Propensity to adverse reactions Active 10-03 12:05: 51 LATEX ANYTHING Propensity to adverse reactions Active 10-03 12:06: 06 Medications Ordered Medication Name Filled Medication Name Start Date Stop Date Current Medication? Ordering Clinician Indication Dosage Frequency Signature (SIG) Comments Components ketoconazol e 2 % topical cream 09-14 00:00: 00 12-08 23:59 :00 No [id number] RASH 1 inch TWICE A DAY 1 inch TWICE A DAY (route: topical) Med Classific ation: Dermatolo gical famotidine 40 mg tablet 09-10 00:00: 00 10-21 00:00 :00 No [id number] Per instruc tions ONCE DAILY Per instructio ns ONCE DAILY (route: oral) Med Classific ation: Gastroint estinal Therapy Agents cetirizine 10 mg tablet 09-21 00:00: 00 04-28 00:00 :00 No [id number] ASTHMA 1 tablet EVERY DAY 1 tablet EVERY DAY (route: oral) Med Classific ation: Respirato ry Therapy Agents montelukast 10 mg tablet 09-11 00:00: 00 04-28 00:00 :00 No [id number] ASTHMA 1 tablet EVERY DAY AT BEDTIME 1 tablet EVERY DAY AT BEDTIME (route: oral) Med Classific ation: Respirato ry Therapy Agents hydrochloro thiazide 25 mg tablet 07-12 00:00: 00 10-21 00:00 :00 No [id number] Per instruc tions EVERY DAY Per instructio ns EVERY DAY (route: oral) Med Classific ation: Cardiovas cular Therapy Agents levothyroxi ne 50 mcg tablet 09-11 00:00: 00 04-28 00:00 :00 No [id number] THYROID 1 tablet EVERY DAY 1 tablet EVERY DAY (route: oral) Med Classific ation: Endocrine carvedilol 6.25 mg tablet 07-10 00:00: 00 04-28 00:00 :00 No [id number] HYPERTENSIO N 1 tablet TWICE A DAY 1 tablet TWICE A DAY (route: oral) Med Classific ation: Cardiovas cular Therapy Agents pregabalin 225 mg capsule 08-18 00:00: 00 10-21 23:59 :00 No [id number] NEUROPATHY Per instruc tions TWICE A DAY Per instructio ns TWICE A DAY (route: oral) Med Classific ation: Central Nervous System Agents atorvastati n 10 mg tablet 07-12 00:00: 00 04-28 00:00 :00 No [id number] HYPERTENSIO N 1 tablet EVERY DAY 1 tablet EVERY DAY (route: oral) Med Classific ation: Cardiovas cular Therapy Agents Dexilant 60 mg capsule, delayed release 09-13 00:00: 00 10-21 00:00 :00 No [id number] Per instruc tions ONCE DAILY Per instructio ns ONCE DAILY (route: oral) Med Classific ation: Gastroint estinal Therapy Agents Advair Diskus 250 mcg-50 mcg/dose powder for inhalation 10-21 00:00: 00 04-28 00:00 :00 No [id number] ASTHMA 1 inhalat ion 2 TIMES DAILY 1 inhalation 2 TIMES DAILY (route: inhalation ) Med Classific ation: Respirato ry Therapy Agents Dry Eye Relief 1 %-0.2 %-0.2 % drops 10-21 00:00: 00 04-28 00:00 :00 No [id number] DRY EYES 1 drops EVERY 4 HOURS 1 drops EVERY 4 HOURS (route: ophthalmic (eye)) Med Classific ation: Ophthalmi c Agents furosemide 40 mg tablet 10-21 00:00: 00 04-28 00:00 :00 No [id number] HYPERTENSIO N 1 tablet EVERY AM 1 tablet EVERY AM (route: oral) Med Classific ation: Cardiovas cular Therapy Agents nystatin 100,000 unit/mL oral suspension 10-21 00:00: 00 10-26 23:59 :00 No [id number] THRUSH 5 mL 4 TIMES DAILY 5 mL 4 TIMES DAILY (route: oral) Med Classific ation: Mouth-Thr oat-Denta l - Preparati ons O2 - OXYGEN 10-21 00:00: 00 04-28 00:00 :00 No [id number] RESPIRATORY FAILURE 2-3 Liter O2 - CONTINUOUS 2-3 Liter O2 - CONTINUOUS (route: Oxygen) Med Classific ation: Medical Oxygen pantoprazol e 40 mg tablet,dwaine yed release 10-21 00:00: 00 04-28 00:00 :00 No [id number] GERD 1 tablet EVERY AM 1 tablet EVERY AM (route: oral) Med Classific ation: Gastroint estinal Therapy Agents pregabalin 150 mg capsule 10-21 00:00: 00 04-28 00:00 :00 No [id number] NEUROPATHY 1 capsule 2 TIMES DAILY 1 capsule 2 TIMES DAILY (route: oral) Med Classific ation: Central Nervous System Agents clotrimazol e-betametha sone 1 %-0.05 % topical cream 12-08 00:00: 00 04-28 00:00 :00 No [id number] RASH Per instruc tions 2 TIMES DAILY Per instructio ns 2 TIMES DAILY (route: topical) Med Classific ation: Dermatolo gical fluconazole 150 mg tablet 12-08 00:00: 00 12-15 23:59 :00 No [id number] RASH 1 tablet DAILY 1 tablet DAILY (route: oral) Med Classific ation: Anti-Infe ctive Agents ciclopirox 0.77 % topical cream 2021-1 1-22 00:00: 00 11-21 23:59 :00 No [id number] FUNGAL INFECTION Per instruc tions LOCALLY TWO TIMES A DAY Per instructio ns LOCALLY TWO TIMES A DAY (route: topical) Med Classific ation: Dermatolo gical Advair Diskus 250 mcg-50 mcg/dose powder for inhalation 2020-04 00:00: 00 04-28 00:00 :00 No [id number] Per instruc tions TWICE A DAY Per instructio ns TWICE A DAY (route: inhalation ) Med Classific ation: Respirato ry Therapy Agents pregabalin 225 mg capsule 2020-04 00:00: 00 11-21 23:59 :00 No [id number] PAIN 1 capsule TWICE A DAY 1 capsule TWICE A DAY (route: oral) Med Classific ation: Central Nervous System Agents carvedilol 6.25 mg tablet 2020-04 00:00: 00 04-28 00:00 :00 No [id number] Per instruc tions TWO TIMES A DAY Per instructio ns TWO TIMES A DAY (route: oral) Med Classific ation: Cardiovas cular Therapy Agents furosemide 40 mg tablet 2020-04 00:00: 00 04-28 00:00 :00 No [id number] Per instruc tions ONCE DAILY Per instructio ns ONCE DAILY (route: oral) Med Classific ation: Cardiovas cular Therapy Agents cetirizine 10 mg tablet 01-03 00:00: 00 04-28 00:00 :00 No [id number] Per instruc tions ONCE DAILY Per instructio ns ONCE DAILY (route: oral) Med Classific ation: Respirato ry Therapy Agents montelukast 10 mg tablet 2020-04 00:00: 00 04-28 00:00 :00 No [id number] Per instruc tions EVERY DAY AT BEDTIME Per instructio ns EVERY DAY AT BEDTIME (route: oral) Med Classific ation: Respirato ry Therapy Agents magnesium oxide 400 mg (241.3 mg magnesium) tablet 2020-04 00:00: 00 11-21 23:59 :00 No [id number] SUPPLEMENT Per instruc tions ONCE DAILY Per instructio ns ONCE DAILY (route: oral) Med Classific ation: Electroly te Balance-N utritiona l Products metoclopram anat 10 mg tablet 05-11 00:00: 00 11-21 23:59 :00 No [id number] GERD 1 tablet 2 TIMES DAILY 1 tablet 2 TIMES DAILY (route: oral) Med Classific ation: Gastroint estinal Therapy Agents Advair Diskus 250 mcg-50 mcg/dose powder for inhalation 05-20 00:00: 00 11-21 23:59 :00 No [id number] BREATHING 1 inhalat ion 2 TIMES DAILY 1 inhalation 2 TIMES DAILY (route: inhalation ) Alternate Route: BY MOUTH. Med Classific ation: Respirato ry Therapy Agents atorvastati n 10 mg tablet 05-20 00:00: 00 11-21 23:59 :00 No [id number] BP 1 tablet DAILY 1 tablet DAILY (route: oral) Alternate Route: BY MOUTH. Med Classific ation: Cardiovas cular Therapy Agents carvedilol 6.25 mg tablet 05-20 00:00: 00 11-21 23:59 :00 No [id number] BP 1 tablet 2 TIMES DAILY 1 tablet 2 TIMES DAILY (route: oral) Alternate Route: BY MOUTH. Med Classific ation: Cardiovas cular Therapy Agents cetirizine 10 mg tablet 05-20 00:00: 00 11-21 23:59 :00 No [id number] ALLERGIES 1 tablet DAILY 1 tablet DAILY (route: oral) Alternate Route: BY MOUTH. Med Classific ation: Respirato ry Therapy Agents ferrous gluconate 324 mg (37.5 mg iron) tablet 05-20 00:00: 00 11-21 23:59 :00 No [id number] LOW IRON 1 tablet DAILY 1 tablet DAILY (route: oral) Alternate Route: BY MOUTH. Med Classific ation: Electroly te Balance-N utritiona l Products furosemide 40 mg tablet 05-20 00:00: 00 11-21 23:59 :00 No [id number] FLUID OVERLOAD 1 tablet DAILY 1 tablet DAILY (route: oral) Alternate Route: BY MOUTH. Med Classific ation: Cardiovas cular Therapy Agents levothyroxi ne 50 mcg capsule 05-20 00:00: 00 11-21 23:59 :00 No [id number] THYROID 1 capsule DAILY 1 capsule DAILY (route: oral) Alternate Route: BY MOUTH. Med Classific ation: Endocrine losartan 25 mg tablet 05-20 00:00: 00 11-21 23:59 :00 No [id number] BP 1 tablet DAILY 1 tablet DAILY (route: oral) Alternate Route: BY MOUTH. Med Classific ation: Cardiovas cular Therapy Agents montelukast 10 mg tablet 05-20 00:00: 00 11-21 23:59 :00 No [id number] BP 1 tablet DAILY 1 tablet DAILY (route: oral) Alternate Route: BY MOUTH. Med Classific ation: Respirato ry Therapy Agents atorvastati n 10 mg tablet 11-22 00:00: 00 10-01 23:59 :00 No [id number] HLD 1 tablet DAILY 1 tablet DAILY (route: oral) Med Classific ation: Cardiovas cular Therapy Agents carvedilol 6.25 mg tablet 11-22 00:00: 00 10-01 23:59 :00 No [id number] HTN 1 tablet 2 TIMES DAILY 1 tablet 2 TIMES DAILY (route: oral) Med Classific ation: Cardiovas cular Therapy Agents cefuroxime axetil 250 mg tablet 11-21 00:00: 00 06-05 00:00 :00 No [id number] Per instruc tions Per instructio ns (route: oral) Med Classific ation: Anti-Infe ctive Agents Advair Diskus 250 mcg-50 mcg/dose powder for inhalation 11-14 00:00: 00 10-01 23:59 :00 No [id number] COPD 1 inhalat ion TWICE A DAY 1 inhalation TWICE A DAY (route: inhalation ) Med Classific ation: Respirato ry Therapy Agents furosemide 40 mg tablet 11-08 00:00: 00 10-01 23:59 :00 No [id number] DIURETIC 2 tablet EVERY DAY 2 tablet EVERY DAY (route: oral) Med Classific ation: Cardiovas cular Therapy Agents amitriptyli ne 10 mg tablet 8- 00:00: 00 06-05 00:00 :00 No [id number] Per instruc tions DAILY AT BEDTIME; IF NEEDED AT NIGHT EACH WEEK UP TO 40MG DIRECTED Per instructio ns DAILY AT BEDTIME; IF NEEDED AT NIGHT EACH WEEK UP TO 40MG DIRECTED (route: oral) Med Classific ation: Central Nervous System Agents ferrous sulfate 325 mg (65 mg iron) tablet 10-26 00:00: 00 10-01 23:59 :00 No [id number] SUPPLEMENT 1 tablet DAILY 1 tablet DAILY (route: oral) Med Classific ation: Electroly te Balance-N utritiona l Products cetirizine 10 mg tablet 10-25 00:00: 00 10-01 23:59 :00 No [id number] ANTIHISTAMI NE 1 tablet EVERY DAY 1 tablet EVERY DAY (route: oral) Med Classific ation: Respirato ry Therapy Agents dexlansopra zole 60 mg capsule,bip hase delayed release 10-25 00:00: 00 10-01 23:59 :00 No [id number] ANTISPASMOD IC 1 capsule EVERY DAY 1 capsule EVERY DAY (route: oral) Med Classific ation: Gastroint estinal Therapy Agents losartan 25 mg tablet 10-25 00:00: 00 10-01 23:59 :00 No [id number] HTN 1 tablet EVERY DAY 1 tablet EVERY DAY (route: oral) Med Classific ation: Cardiovas cular Therapy Agents ciprofloxac in 500 mg tablet - 00:00: 00 06-05 00:00 :00 No [id number] Per instruc tions TWICE A DAY Per instructio ns TWICE A DAY (route: oral) Med Classific ation: Anti-Infe ctive Agents metronidazo le 500 mg tablet - 00:00: 00 06-05 00:00 :00 No [id number] Per instruc tions TWICE A DAY FOR 10 DAYS Per instructio ns TWICE A DAY FOR 10 DAYS (route: oral) Med Classific ation: Anti-Infe ctive Agents atorvastati n 10 mg tablet 05-25 00:00: 00 06-05 00:00 :00 No [id number] Per instruc tions Per instructio ns (route: oral) Med Classific ation: Cardiovas cular Therapy Agents carvedilol 6.25 mg tablet 05-25 00:00: 00 06-05 00:00 :00 No [id number] Per instruc tions Per instructio ns (route: oral) Med Classific ation: Cardiovas cular Therapy Agents dexlansopra zole 60 mg capsule,bip hase delayed release 05-25 00:00: 00 06-05 00:00 :00 No [id number] Per instruc tions Per instructio ns (route: oral) Med Classific ation: Gastroint estinal Therapy Agents dicyclomine 10 mg capsule 05-25 00:00: 00 10-01 23:59 :00 No [id number] IBS 1 capsule 3 TIMES DAILY 1 capsule 3 TIMES DAILY (route: oral) Med Classific ation: Gastroint estinal Therapy Agents furosemide 40 mg tablet 05-25 00:00: 00 06-05 00:00 :00 No [id number] Per instruc tions Per instructio ns (route: oral) Med Classific ation: Cardiovas cular Therapy Agents levothyroxi ne 50 mcg tablet 05-25 00:00: 00 10-01 23:59 :00 No [id number] HYPOTHYROID ISM 1 tablet DAILY 1 tablet DAILY (route: oral) Med Classific ation: Endocrine losartan 25 mg tablet 05-25 00:00: 00 06-05 00:00 :00 No [id number] Per instruc tions Per instructio ns (route: oral) Med Classific ation: Cardiovas cular Therapy Agents montelukast 10 mg tablet 05-25 00:00: 00 10-01 23:59 :00 No [id number] ASTHMA 1 tablet BEDTIME 1 tablet BEDTIME (route: oral) Med Classific ation: Respirato ry Therapy Agents pregabalin 225 mg capsule 2-16 00:00: 00 10-01 23:59 :00 No [id number] NEUROPATHY 1 capsule 2 TIMES DAILY 1 capsule 2 TIMES DAILY (route: oral) Med Classific ation: Central Nervous System Agents Estring 2 mg (7.5 mcg/24 hour) vaginal ring 2-13 00:00: 00 06-05 00:00 :00 No [id number] Per instruc tions INSERT 1 RING VAGINALLY EVERY Per instructio ns INSERT 1 RING VAGINALLY EVERY (route: vaginal) Med Classific ation: Vaginal Products metronidazo le 500 mg tablet 2-09 00:00: 00 06-05 00:00 :00 No [id number] Per instruc tions TWICE A DAY FOR 10 DAYS Per instructio ns TWICE A DAY FOR 10 DAYS (route: oral) Med Classific ation: Anti-Infe ctive Agents tramadol 50 mg tablet 2-09 00:00: 00 10-01 23:59 :00 No [id number] PAIN 1 tablet EVERY 6 HOURS NEEDED 1 tablet EVERY 6 HOURS NEEDED (route: oral) Med Classific ation: Analgesic , Anti-infl ammatory or Antipyret ic cetirizine 10 mg tablet 2-08 00:00: 00 06-05 00:00 :00 No [id number] Per instruc tions EVERY DAY Per instructio ns EVERY DAY (route: oral) Med Classific ation: Respirato ry Therapy Agents magnesium 400 mg (as magnesium oxide) capsule 7-19 00:00: 00 10-01 23:59 :00 No [id number] SUPPLEMENT 1 capsule DAILY 1 capsule DAILY (route: oral) Med Classific ation: Electroly te Balance-N utritiona l Products miconazole nitrate 100 mg vaginal suppository 2-01 00:00: 00 10-01 23:59 :00 No [id number] YEAST INFECTION 1 supposi tory, vaginal BEDTIME 1 suppositor y, vaginal BEDTIME (route: vaginal) Med Classific ation: Vaginal Products ondansetron HCl 4 mg tablet 3-15 00:00: 00 10-01 23:59 :00 No [id number] NAUSEA 1 tablet NEEDED 1 tablet NEEDED (route: oral) Med Classific ation: Gastroint estinal Therapy Agents Citrucel 500 mg tablet 4-06 00:00: 00 10-01 23:59 :00 No [id number] CONSTIPATIO N 1 tablet DAILY 1 tablet DAILY (route: oral) Med Classific ation: Gastroint estinal Therapy Agents furosemide 80 mg tablet 09-30 00:00: 00 10-03 00:00 :00 No [id number] Per instruc tions Per instructio ns (route: oral) Med Classific ation: Cardiovas cular Therapy Agents dexlansopra zole 60 mg capsule,bip hase delayed release 09-29 00:00: 00 10-03 00:00 :00 No [id number] Per instruc tions Per instructio ns (route: oral) Med Classific ation: Gastroint estinal Therapy Agents levothyroxi ne 50 mcg tablet 09-29 00:00: 00 10-03 00:00 :00 No [id number] Per instruc tions Per instructio ns (route: oral) Med Classific ation: Endocrine losartan 25 mg tablet 09-28 00:00: 00 10-03 00:00 :00 No [id number] Per instruc tions Per instructio ns (route: oral) Med Classific ation: Cardiovas cular Therapy Agents atorvastati n 10 mg tablet 09-27 00:00: 00 10-03 00:00 :00 No [id number] Per instruc tions Per instructio ns (route: oral) Med Classific ation: Cardiovas cular Therapy Agents carvedilol 6.25 mg tablet 09-27 00:00: 00 10-03 00:00 :00 No [id number] Per instruc tions Per instructio ns (route: oral) Med Classific ation: Cardiovas cular Therapy Agents montelukast 10 mg tablet 09-27 00:00: 00 10-03 00:00 :00 No [id number] Per instruc tions Per instructio ns (route: oral) Med Classific ation: Respirato ry Therapy Agents dicyclomine 10 mg capsule 09-26 00:00: 00 10-03 00:00 :00 No [id number] Per instruc tions Per instructio ns (route: oral) Med Classific ation: Gastroint estinal Therapy Agents atorvastati n 10 mg tablet 09-24 00:00: 00 10-03 00:00 :00 No [id number] Per instruc tions Per instructio ns (route: oral) Med Classific ation: Cardiovas cular Therapy Agents carvedilol 6.25 mg tablet 09-24 00:00: 00 10-03 00:00 :00 No [id number] Per instruc tions Per instructio ns (route: oral) Med Classific ation: Cardiovas cular Therapy Agents cephalexin 500 mg capsule 09-24 00:00: 00 10-03 00:00 :00 No [id number] Per instruc tions Per instructio ns (route: oral) Med Classific ation: Anti-Infe ctive Agents clotrimazol e-betametha sone 1 %-0.05 % topical cream 09-24 00:00: 00 10-03 00:00 :00 No [id number] Per instruc tions Per instructio ns (route: topical) Med Classific ation: Dermatolo gical dexlansopra zole 60 mg capsule,bip hase delayed release 09-24 00:00: 00 10-03 00:00 :00 No [id number] Per instruc tions Per instructio ns (route: oral) Med Classific ation: Gastroint estinal Therapy Agents furosemide 40 mg tablet 09-24 00:00: 00 10-03 00:00 :00 No [id number] Per instruc tions Per instructio ns (route: oral) Med Classific ation: Cardiovas cular Therapy Agents levothyroxi ne 50 mcg tablet 09-24 00:00: 00 10-03 00:00 :00 No [id number] Per instruc tions Per instructio ns (route: oral) Med Classific ation: Endocrine losartan 25 mg tablet 09-24 00:00: 00 10-03 00:00 :00 No [id number] Per instruc tions Per instructio ns (route: oral) Med Classific ation: Cardiovas cular Therapy Agents montelukast 10 mg tablet 09-24 00:00: 00 10-03 00:00 :00 No [id number] Per instruc tions Per instructio ns (route: oral) Med Classific ation: Respirato ry Therapy Agents ondansetron HCl 4 mg tablet 09-24 00:00: 00 10-03 00:00 :00 No [id number] Per instruc tions Per instructio ns (route: oral) Med Classific ation: Gastroint estinal Therapy Agents pregabalin 225 mg capsule 09-23 00:00: 00 10-03 00:00 :00 No [id number] Per instruc tions Per instructio ns (route: oral) Med Classific ation: Central Nervous System Agents dicyclomine 10 mg capsule 09-18 00:00: 00 10-03 00:00 :00 No [id number] Per instruc tions Per instructio ns (route: oral) Med Classific ation: Gastroint estinal Therapy Agents hydrocortis one 2.5 % topical cream 09-18 00:00: 00 10-03 00:00 :00 No [id number] Per instruc tions Per instructio ns (route: topical) Med Classific ation: Dermatolo gical ondansetron HCl 4 mg tablet 09-18 00:00: 00 10-03 00:00 :00 No [id number] Per instruc tions Per instructio ns (route: oral) Med Classific ation: Gastroint estinal Therapy Agents clotrimazol e 1 % topical cream 09-15 00:00: 00 10-03 00:00 :00 No [id number] Per instruc tions 2 TIMES A DAY Per instructio ns 2 TIMES A DAY (route: topical) Med Classific ation: Dermatolo gical hydrocortis one 2.5 % topical cream 09-15 00:00: 00 10-03 00:00 :00 No [id number] Per instruc tions DAILY; THE SECOND WEEK ONCE EVERY OTHER DAY Per instructio ns DAILY; THE SECOND WEEK ONCE EVERY OTHER DAY (route: topical) Med Classific ation: Dermatolo gical fexofenadin e 180 mg tablet 09-12 00:00: 00 10-03 00:00 :00 No [id number] Per instruc tions EVERY DAY Per instructio ns EVERY DAY (route: oral) Med Classific ation: Respirato ry Therapy Agents nystatin 100,000 unit/gram topical cream 09-11 00:00: 00 10-03 00:00 :00 No [id number] Per instruc tions TWO TIMES A DAY Per instructio ns TWO TIMES A DAY (route: topical) Med Classific ation: Dermatolo gical cetirizine 10 mg tablet 09-02 00:00: 00 10-03 00:00 :00 No [id number] Per instruc tions EVERY DAY Per instructio ns EVERY DAY (route: oral) Med Classific ation: Respirato ry Therapy Agents Citrucel 500 mg tablet 09-02 00:00: 00 10-03 00:00 :00 No [id number] Per instruc tions EVERY Per instructio ns EVERY (route: oral) Med Classific ation: Gastroint estinal Therapy Agents atorvastati n 10 mg tablet 10-03 00:00: 00 Yes [id number] HIGH LIPIDS 1 tablet BEDTIME 1 tablet BEDTIME (route: oral) Med Classific ation: Cardiovas cular Therapy Agents Citrucel 500 mg tablet 10-03 00:00: 00 Yes [id number] BULK UP STOOL 1 tablet DAILY 1 tablet DAILY (route: oral) Med Classific ation: Gastroint estinal Therapy Agents Coreg 6.25 mg tablet 10-03 00:00: 00 Yes [id number] HIGH BLOOD PRESSURE 1 tablet 2 TIMES DAILY 1 tablet 2 TIMES DAILY (route: oral) Med Classific ation: Cardiovas cular Therapy Agents dexlansopra zole 60 mg capsule,bip hase delayed release 10-03 00:00: 00 Yes [id number] GERD 1 capsule DAILY 1 capsule DAILY (route: oral) Med Classific ation: Gastroint estinal Therapy Agents dicyclomine 10 mg capsule 10-03 00:00: 00 Yes [id number] LOOSE STOOL 1 capsule 3 TIMES DAILY 1 capsule 3 TIMES DAILY (route: oral) Med Classific ation: Gastroint estinal Therapy Agents fexofenadin e 180 mg tablet 10-03 00:00: 00 Yes [id number] GERD 1 tablet DAILY 1 tablet DAILY (route: oral) Med Classific ation: Respirato ry Therapy Agents furosemide 40 mg tablet 10-03 00:00: 00 Yes [id number] EDEMA 1 tablet 2 TIMES DAILY 1 tablet 2 TIMES DAILY (route: oral) Med Classific ation: Cardiovas cular Therapy Agents hydrocortis one 2.5 % topical cream 10-03 00:00: 00 Yes [id number] FUNGAL RASH UNER BREASTS AND IN GROIN AREA Per instruc tions 2 TIMES DAILY Per instructio ns 2 TIMES DAILY (route: topical) Med Classific ation: Dermatolo gical iron 325 mg (65 mg iron) tablet 10-03 00:00: 00 Yes [id number] ANEMIA 1 tablet DAILY 1 tablet DAILY (route: oral) Med Classific ation: Electroly te Balance-N utritiona l Products levothyroxi ne 50 mcg tablet 10-03 00:00: 00 Yes [id number] LOW THYROID HORMONE 1 tablet DAILY 1 tablet DAILY (route: oral) Med Classific ation: Endocrine losartan 25 mg tablet 10-03 00:00: 00 Yes [id number] HIGH BLOOD PRESSURE 1 tablet DAILY 1 tablet DAILY (route: oral) Med Classific ation: Cardiovas cular Therapy Agents magnesium 400 mg (as magnesium oxide) tablet 10-03 00:00: 00 Yes [id number] SUPPLEMENT 1 tablet DAILY 1 tablet DAILY (route: oral) Med Classific ation: Electroly te Balance-N utritiona l Products montelukast 10 mg tablet 10-03 00:00: 00 Yes [id number] TROUBLE BREATHING 1 tablet BEDTIME 1 tablet BEDTIME (route: oral) Med Classific ation: Respirato ry Therapy Agents ondansetron 4 mg disintegrat ing tablet 10-03 00:00: 00 Yes [id number] NAUSEA/VOMI TTING 1 tablet EVERY 8 HOURS 1 tablet EVERY 8 HOURS (route: oral) Med Classific ation: Gastroint estinal Therapy Agents MMIS 3 billion cell capsule 10-03 00:00: 00 Yes [id number] STOP LOOSE STOOL 1 capsule DAILY 1 capsule DAILY (route: oral) Med Classific ation: Gastroint estinal Therapy Agents pregabalin 225 mg capsule 10-03 00:00: 00 Yes [id number] NEUROPATHY TO LEGS 225 mg 2 TIMES DAILY 225 mg 2 TIMES DAILY (route: oral) Med Classific ation: Central Nervous System Agents Senna Lax 8.6 mg tablet 10-03 00:00: 00 Yes [id number] CONSTIPATIO N 2 tablet DAILY 2 tablet DAILY (route: oral) Med Classific ation: Gastroint estinal Therapy Agents triamcinolo ne acetonide 55 mcg nasal spray aerosol 10-03 00:00: 00 Yes [id number] HELP WITH NASAL CONGESTION 2 spray DAILY 2 spray DAILY (route: nasal) Med Classific ation: Respirato ry Therapy Agents oxygen gas for inhalation 10-03 00:00: 00 Yes [id number] COPD, INTERSTITIA L LUNG DISEASE 3 Liter O2 - CONTINUOUS 3 Liter O2 - CONTINUOUS (route: inhalation ) Med Classific ation: Medical Supplies and Durable Medical Equipment (DME) methylpredn isolone 4 mg tablets in a dose pack 10-08 00:00: 00 10-15 23:59 :00 No [id number] SYMPTOM REDUCTION Per instruc tions DAILY Per instructio ns DAILY (route: oral) Med Classific ation: Endocrine Vital Signs Vital Name Observation Time Observation Value Commen ts Temperature 2024-10-27 13:48:00.000 97.2 [degF] Temperature 2024-10-27 13:05:00.000 97.6 [degF] Temperature 2024-10-22 14:52:00.000 97.7 [degF] Temperature 2024-10-21 15:13:00.000 97.1 [degF] Temperature 2024-10-20 12:11:00.000 97.5 [degF] Temperature 2024-10-20 10:26:00.000 97.5 [degF] Temperature 2024-10-15 13:12:00.000 97.7 [degF] Temperature 2024-10-15 10:07:00.000 97.6 [degF] Temperature 2024-10-14 16:09:00.000 97.7 [degF] Temperature 2024-10-13 13:12:00.000 97.2 [degF] Temperature 2024-10-09 15:34:00.000 97.8 [degF] Temperature 2024-10-08 08:53:00.000 97.7 [degF] Temperature 2024-10-07 14:09:00.000 97.6 [degF] Temperature 2024-10-03 13:06:00.000 97.9 [degF] BMI (%) 2024-10-03 12:43:23.000 57 kg/m2 Height 2024-10-03 12:41:42.000 63 [in_us] Pulse 2024-10-27 13:48:00.000 60 /min Pulse 2024-10-27 13:05:00.000 60 /min Pulse 2024-10-22 14:52:00.000 63 /min Pulse 2024-10-21 15:13:00.000 61 /min Pulse 2024-10-20 12:11:00.000 62 /min Pulse 2024-10-20 10:26:00.000 61 /min Pulse 2024-10-15 13:12:00.000 62 /min Pulse 2024-10-15 10:07:00.000 60 /min Pulse 2024-10-14 16:09:00.000 64 /min Pulse 2024-10-13 13:12:00.000 62 /min Pulse 2024-10-09 15:34:00.000 65 /min Pulse 2024-10-08 08:53:00.000 72 /min Pulse 2024-10-07 14:09:00.000 72 /min Pulse 2024-10-03 13:06:00.000 69 /min O2 Saturation (%) 2024-10-27 13:48:00.000 95 % O2 Saturation (%) 2024-10-27 13:05:00.000 100 % O2 Saturation (%) 2024-10-22 14:52:00.000 96 % O2 Saturation (%) 2024-10-21 15:13:00.000 99 % O2 Saturation (%) 2024-10-20 12:11:00.000 98 % O2 Saturation (%) 2024-10-20 10:26:00.000 97 % O2 Saturation (%) 2024-10-15 13:12:00.000 99 % O2 Saturation (%) 2024-10-15 10:07:00.000 96 % O2 Saturation (%) 2024-10-14 16:09:00.000 99 % O2 Saturation (%) 2024-10-13 13:12:00.000 97 % O2 Saturation (%) 2024-10-09 15:34:00.000 98 % O2 Saturation (%) 2024-10-08 08:53:00.000 94 % O2 Saturation (%) 2024-10-07 14:09:00.000 92 % O2 Saturation (%) 2024-10-03 13:06:00.000 96 % Respirations 2024-10-27 13:48:00.000 18 /min Respirations 2024-10-27 13:05:00.000 16 /min Respirations 2024-10-22 14:52:00.000 18 /min Respirations 2024-10-21 15:13:00.000 16 /min Respirations 2024-10-20 12:11:00.000 18 /min Respirations 2024-10-20 10:26:00.000 18 /min Respirations 2024-10-15 13:12:00.000 18 /min Respirations 2024-10-15 10:07:00.000 18 /min Respirations 2024-10-14 16:09:00.000 18 /min Respirations 2024-10-13 13:12:00.000 18 /min Respirations 2024-10-09 15:34:00.000 18 /min Respirations 2024-10-08 08:53:00.000 18 /min Respirations 2024-10-07 14:09:00.000 18 /min Respirations 2024-10-03 13:06:00.000 22 /min Weight (lbs) 2024-10-03 12:43:23.000 322.4 [lb_av] Systolic Blood Pressure 2024-10-27 13:05:00.000 100 mm [Hg] Systolic Blood Pressure 2024-10-22 14:52:00.000 120 mm [Hg] Systolic Blood Pressure 2024-10-21 15:13:00.000 118 mm [Hg] Systolic Blood Pressure 2024-10-20 12:11:00.000 120 mm [Hg] Systolic Blood Pressure 2024-10-20 10:26:00.000 110 mm [Hg] Systolic Blood Pressure 2024-10-15 13:12:00.000 118 mm [Hg] Systolic Blood Pressure 2024-10-15 10:07:00.000 125 mm [Hg] Systolic Blood Pressure 2024-10-14 16:09:00.000 110 mm [Hg] Systolic Blood Pressure 2024-10-13 13:12:00.000 110 mm [Hg] Systolic Blood Pressure 2024-10-09 15:34:00.000 96 mm[ Hg] Systolic Blood Pressure 2024-10-08 08:53:00.000 118 mm [Hg] Systolic Blood Pressure 2024-10-07 14:09:00.000 108 mm [Hg] Systolic Blood Pressure 2024-10-03 13:06:00.000 124 mm [Hg] Diastolic Blood Pressure 2024-10-27 13:05:00.000 60 mm [Hg] Diastolic Blood Pressure 2024-10-22 14:52:00.000 68 mm [Hg] Diastolic Blood Pressure 2024-10-21 15:13:00.000 60 mm [Hg] Diastolic Blood Pressure 2024-10-20 12:11:00.000 70 mm [Hg] Diastolic Blood Pressure 2024-10-20 10:26:00.000 60 mm [Hg] Diastolic Blood Pressure 2024-10-15 13:12:00.000 60 mm [Hg] Diastolic Blood Pressure 2024-10-15 10:07:00.000 80 mm [Hg] Diastolic Blood Pressure 2024-10-14 16:09:00.000 70 mm [Hg] Diastolic Blood Pressure 2024-10-13 13:12:00.000 60 mm [Hg] Diastolic Blood Pressure 2024-10-09 15:34:00.000 65 mm [Hg] Diastolic Blood Pressure 2024-10-08 08:53:00.000 68 mm [Hg] Diastolic Blood Pressure 2024-10-07 14:09:00.000 62 mm [Hg] Diastolic Blood Pressure 2024-10-03 13:06:00.000 60 mm [Hg] Plan of Treatment Planned Activity Planned Date Details Comments Future Scheduled Test SPEECH THE RAPIST TO EVALUATE FOR SWALLOWING [code = SPEECH THERAPIST TO EVALUATE FOR SWALLOWING ] Future Scheduled Test RESPIRATOR Y SYSTEM MANAGEMENT; RN TO ASSESS AND TEACH, PIPE COVERING MOLDER/EXCELSIOR CUTTER TO OBSERVE AND TEACH RELATED TO ALTERED RESPIRATORY STATUS TO MINIMIZE COMPLICATIONS AND REDUCE HOSPITALIZATION. [code = RESPIRATORY SYSTEM MANAGEMENT; RN TO ASSESS AND TEACH, PIPE COVERING MOLDER/EXCELSIOR CUTTER TO OBSERVE AND TEACH RELATED TO ALTERED RESPIRATORY STATUS TO MINIMIZE COMPLICATIONS AND REDUCE HOSPITALIZATION.] Future Scheduled Test OXYGEN THE RAPY; RN/PIPE COVERING MOLDER/EXCELSIOR CUTTER TO INSTRUCT ON OXYGEN MANAGEMENT INCLUDING: ADMINISTRATION AT 3 L/MIN VIA NASAL CANNULA CONTINUOUS FOR COPD, INTERSTITIAL, CARE OF EQUIPMENT AND SAFETY. [code = OXYGEN THERAPY; RN/PIPE COVERING MOLDER/EXCELSIOR CUTTER TO INSTRUCT ON OXYGEN MANAGEMENT INCLUDING: ADMINISTRATION AT 3 L/MIN VIA NASAL CANNULA CONTINUOUS FOR COPD, INTERSTITIAL, CARE OF EQUIPMENT AND SAFETY.] Future Scheduled Test FALL REDUC TION MANAGEMENT; RN TO ASSESS AND OBSERVE, PIPE COVERING MOLDER/EXCELSIOR CUTTER TO OBSERVE FALL RISK FACTORS AND EDUCATE PATIENT/CAREGIVER ON STRATEGIES TO MINIMIZE THE RISK OF FALLING. [code = FALL REDUCTION MANAGEMENT; RN TO ASSESS AND OBSERVE, PIPE COVERING MOLDER/EXCELSIOR CUTTER TO OBSERVE FALL RISK FACTORS AND EDUCATE PATIENT/CAREGIVER ON STRATEGIES TO MINIMIZE THE RISK OF FALLING.] Future Scheduled Test GENITOURIN EDUARDO MANAGEMENT; RN TO ASSESS AND TEACH, PIPE COVERING MOLDER/EXCELSIOR CUTTER TO OBSERVE AND TEACH RELATED TO ALTERED GENITOURINARY STATUS TO MINIMIZE COMPLICATIONS AND REDUCE HOSPITALIZATION. [code = GENITOURINARY MANAGEMENT; RN TO ASSESS AND TEACH, PIPE COVERING MOLDER/EXCELSIOR CUTTER TO OBSERVE AND TEACH RELATED TO ALTERED GENITOURINARY STATUS TO MINIMIZE COMPLICATIONS AND REDUCE HOSPITALIZATION. ] Future Scheduled Test RN TO OBSE RVE, ASSESS, EVALUATE, AND DEVELOP AN INDIVIDUALIZED PLAN OF CARE. AGENCY MAY ACCEPT ORDERS FROM CONSULTING PHYSICIANS. RN TO OBSERVE AND ASSESS, PIPE COVERING MOLDER/EXCELSIOR CUTTER TO OBSERVE FOR RISK FOR FALLS AND INSTRUCT IN FALL PREVENTION, HOME SAFETY, MEDICATION MANAGEMENT, INFECTION PREVENTION, AND NUTRITION MANAGEMENT. RN/PIPE COVERING MOLDER/EXCELSIOR CUTTER NURSE MAY PERFORM O2 SATURATION LEVEL ON ADMISSION AND PRN FOR RN TO ASSESS/PIPE COVERING MOLDER TO OBSERVE PATIENT, WITH NOTIFICATION TO THE PHYSICIAN IF SATURATION IS 90% IN THE ABSENCE OF MORE SPECIFIC PARAMETERS FROM THE PHYSICIAN. AGENCY MAY PERFORM A RESUMPTION OF CARE VISIT FOLLOWING ANY HOSPITAL ADMISSION. RN/PIPE COVERING MOLDER/EXCELSIOR CUTTER TO MONITOR CO-MORBID CONDITIONS LISTED ON THE PLAN OF CARE AND ANY NEW CONDITIONS THAT PRESENT THEMSELVES DURING THIS EPISODE TO IDENTIFY CHANGES AND INTERVENE TO MINIMIZE COMPLICATIONS. [code = RN TO OBSERVE, ASSESS, EVALUATE, AND DEVELOP AN INDIVIDUALIZED PLAN OF CARE. AGENCY MAY ACCEPT ORDERS FROM CONSULTING PHYSICIANS. RN TO OBSERVE AND ASSESS, PIPE COVERING MOLDER/EXCELSIOR CUTTER TO OBSERVE FOR RISK FOR FALLS AND INSTRUCT IN FALL PREVENTION, HOME SAFETY, MEDICATION MANAGEMENT, INFECTION PREVENTION, AND NUTRITION MANAGEMENT. RN/PIPE COVERING MOLDER/EXCELSIOR CUTTER NURSE MAY PERFORM O2 SATURATION LEVEL ON ADMISSION AND PRN FOR RN TO ASSESS/PIPE COVERING MOLDER TO OBSERVE PATIENT, WITH NOTIFICATION TO THE PHYSICIAN IF SATURATION IS 90% IN THE ABSENCE OF MORE SPECIFIC PARAMETERS FROM THE PHYSICIAN. AGENCY MAY PERFORM A RESUMPTION OF CARE VISIT FOLLOWING ANY HOSPITAL ADMISSION. RN/PIPE COVERING MOLDER/EXCELSIOR CUTTER TO MONITOR CO-MORBID CONDITIONS LISTED ON THE PLAN OF CARE AND ANY NEW CONDITIONS THAT PRESENT THEMSELVES DURING THIS EPISODE TO IDENTIFY CHANGES AND INTERVENE TO MINIMIZE COMPLICATIONS.] Future Scheduled Test PAIN MANAG EMENT; RN TO ASSESS AND TEACH, EXCELSIOR CUTTER/PIPE COVERING MOLDER TO OBSERVE AND TEACH AND PROVIDE EDUCATION ON PAIN MANAGEMENT TECHNIQUES. [code = PAIN MANAGEMENT; RN TO ASSESS AND TEACH, EXCELSIOR CUTTER/PIPE COVERING MOLDER TO OBSERVE AND TEACH AND PROVIDE EDUCATION ON PAIN MANAGEMENT TECHNIQUES.] Future Scheduled Test RISK FOR H OSPITALIZATION; RN TO ASSESS/TEACH, EXCELSIOR CUTTER/PIPE COVERING MOLDER TO OBSERVE/TEACH PATIENT/CAREGIVER ON RISK FOR HOSPITALIZATION/EMERGENCY ROOM VISITS, TEACH SIGNS AND SYMPTOMS THAT PUT PATIENT AT RISK, WHEN TO NOTIFY NURSE/PHYSICIAN OF COMPLICATIONS/DECLINE, AND WHEN TO CALL 911. [code = RISK FOR HOSPITALIZATION; RN TO ASSESS/TEACH, EXCELSIOR CUTTER/PIPE COVERING MOLDER TO OBSERVE/TEACH PATIENT/CAREGIVER ON RISK FOR HOSPITALIZATION/EMERGENCY ROOM VISITS, TEACH SIGNS AND SYMPTOMS THAT PUT PATIENT AT RISK, WHEN TO NOTIFY NURSE/PHYSICIAN OF COMPLICATIONS/DECLINE, AND WHEN TO CALL 911.] Future Scheduled Test CARDIOVASC ULAR SYSTEM; RN TO ASSESS/TEACH, PIPE COVERING MOLDER/EXCELSIOR CUTTER TO OBSERVE/TEACH RELATED TO ALTERED CARDIOVASCULAR STATUS TO MINIMIZE COMPLICATIONS AND REDUCE HOSPITALIZATION. [code = CARDIOVASCULAR SYSTEM; RN TO ASSESS/TEACH, PIPE COVERING MOLDER/EXCELSIOR CUTTER TO OBSERVE/TEACH RELATED TO ALTERED CARDIOVASCULAR STATUS TO MINIMIZE COMPLICATIONS AND REDUCE HOSPITALIZATION.] Future Scheduled Test HYPERTENSI ON MANAGEMENT; RN TO ASSESS AND TEACH, PIPE COVERING MOLDER/EXCELSIOR CUTTER TO OBSERVE AND TEACH WARNING SIGNS AND SYMPTOMS TO AVOID HOSPITALIZATION. [code = HYPERTENSION MANAGEMENT; RN TO ASSESS AND TEACH, PIPE COVERING MOLDER/EXCELSIOR CUTTER TO OBSERVE AND TEACH WARNING SIGNS AND SYMPTOMS TO AVOID HOSPITALIZATION.] Future Scheduled Test SKIN INTEG RITY RN TO ASSESS AND TEACH, PIPE COVERING MOLDER/EXCELSIOR CUTTER TO OBSERVE AND TEACH INTEGUMENTARY STATUS TO IDENTIFY CHANGES AND INTERVENE TO MINIMIZE COMPLICATIONS. PROVIDE SKILLED TEACHING OF GENERAL WOUND AND SKIN CARE AND PREVENTION RELATED TO ACTUAL ALTERED SKIN INTEGRITY [code = SKIN INTEGRITY RN TO ASSESS AND TEACH, PIPE COVERING MOLDER/EXCELSIOR CUTTER TO OBSERVE AND TEACH INTEGUMENTARY STATUS TO IDENTIFY CHANGES AND INTERVENE TO MINIMIZE COMPLICATIONS. PROVIDE SKILLED TEACHING OF GENERAL WOUND AND SKIN CARE AND PREVENTION RELATED TO ACTUAL ALTERED SKIN INTEGRITY ] Future Scheduled Test ASTHMA MAN AGEMENT; RN TO ASSESS AND TEACH, PIPE COVERING MOLDER/EXCELSIOR CUTTER TO OBSERVE AND TEACH ASTHMA MANAGEMENT AND PROVIDE EARLY INTERVENTIONS TO MINIMIZE RISK OF HOSPITALIZATION [code = ASTHMA MANAGEMENT; RN TO ASSESS AND TEACH, PIPE COVERING MOLDER/EXCELSIOR CUTTER TO OBSERVE AND TEACH ASTHMA MANAGEMENT AND PROVIDE EARLY INTERVENTIONS TO MINIMIZE RISK OF HOSPITALIZATION] Future Scheduled Test MEDICATION MANAGEMENT; RN/PIPE COVERING MOLDER/EXCELSIOR CUTTER TO REVIEW MEDICATIONS FOR INTERACTIONS, EFFECTIVENESS OF DRUG THERAPY, AND SIGNS/SYMPTOMS OF ADVERSE REACTIONS. MAY INSTRUCT AND REINFORCE MEDICATION TEACHING RELATED TO THE USE OF MEDICATIONS, DOSAGE, FREQUENCY, PURPOSE, SIDE EFFECTS, AND TO REPORT COMPLICATIONS. [code = MEDICATION MANAGEMENT; RN/PIPE COVERING MOLDER/EXCELSIOR CUTTER TO REVIEW MEDICATIONS FOR INTERACTIONS, EFFECTIVENESS OF DRUG THERAPY, AND SIGNS/SYMPTOMS OF ADVERSE REACTIONS. MAY INSTRUCT AND REINFORCE MEDICATION TEACHING RELATED TO THE USE OF MEDICATIONS, DOSAGE, FREQUENCY, PURPOSE, SIDE EFFECTS, AND TO REPORT COMPLICATIONS.] Future Scheduled Test AGENCY MAY PERFORM A RESUMPTION OF CARE VISIT FOLLOWING ANY HOSPITAL ADMISSION. ST TO EVALUATE, ASSESS AND MONITOR, PROVIDE SKILLED THERAPEUTIC INTERVENTION, ACTIVITY, EDUCATION, AND TRAINING TO ADDRESS: ST TO ASSESS AND PROVIDE DIET MODIFICATION AND DIET TOLERANCE/TRIALS ST TO EDUCATE ON COMPENSATORY STRATEGIES FOR SAFE ORAL INTAKE ST TO EDUCATE ON ORAL HYGIENE ST TO EDUCATE ON THERAPEUTIC EXERCISES ST TO IDENTIFY FALL RISK FACTORS; EDUCATE THE PATIENT/CAREGIVER ON WAYS TO REDUCE FALL RISK FACTORS. ST TO EDUCATE ON PNEUMONIA / ASPIRATION PNEUMONIA SELF-MANAGEMENT ST TO MONITOR CARDIO/RESPIRATORY SYSTEM; OBSERVE / ASSESS AND NOTIFY THE PHYSICIAN AND/OR THE RN CLINICAL SPARE PERSON FOR PHYSICIAN NOTIFICATION FOR EARLY SIGNS AND SYMPTOMS OF EXACERBATION OR DETERIORATION. ST TO MONITOR AND EDUCATE ON OXYGEN SATURATION DURING ADLS/IADLS, NOTIFY THE PHYSICIAN AND/OR THE RN CLINICAL SPARE PERSON FOR PHYSICIAN NOTIFICATION IF O2 SATS BELOW PHYSICIAN ORDERED PARAMETERS AFTER [address] TO EDUCATE PATIENT / CAREGIVER ON OXYGEN MANAGEMENT; ST MAY EDUCATE ON PAIN MANAGEMENT CLINICALLY INDICATED, INCLUDING NON-PHARMACOLOGICAL PAIN REDUCTION TECHNIQUES (RELAXATION/DISTRACTION/REPOSITIONING/BIO FEEDBACK) FOR PAIN MANAGEMENT [code = AGENCY MAY PERFORM A RESUMPTION OF CARE VISIT FOLLOWING ANY HOSPITAL ADMISSION. ST TO EVALUATE, ASSESS AND MONITOR, PROVIDE SKILLED THERAPEUTIC INTERVENTION, ACTIVITY, EDUCATION, AND TRAINING TO ADDRESS: ST TO ASSESS AND PROVIDE DIET MODIFICATION AND DIET TOLERANCE/TRIALS ST TO EDUCATE ON COMPENSATORY STRATEGIES FOR SAFE ORAL INTAKE ST TO EDUCATE ON ORAL HYGIENE ST TO EDUCATE ON THERAPEUTIC EXERCISES ST TO IDENTIFY FALL RISK FACTORS; EDUCATE THE PATIENT/CAREGIVER ON WAYS TO REDUCE FALL RISK FACTORS. ST TO EDUCATE ON PNEUMONIA / ASPIRATION PNEUMONIA SELF-MANAGEMENT ST TO MONITOR CARDIO/RESPIRATORY SYSTEM; OBSERVE / ASSESS AND NOTIFY THE PHYSICIAN AND/OR THE RN CLINICAL SPARE PERSON FOR PHYSICIAN NOTIFICATION FOR EARLY SIGNS AND SYMPTOMS OF EXACERBATION OR DETERIORATION. ST TO MONITOR AND EDUCATE ON OXYGEN SATURATION DURING ADLS/IADLS, NOTIFY THE PHYSICIAN AND/OR THE RN CLINICAL SPARE PERSON FOR PHYSICIAN NOTIFICATION IF O2 SATS BELOW PHYSICIAN ORDERED PARAMETERS AFTER [address] TO EDUCATE PATIENT / CAREGIVER ON OXYGEN MANAGEMENT; ST MAY EDUCATE ON PAIN MANAGEMENT CLINICALLY INDICATED, INCLUDING NON-PHARMACOLOGICAL PAIN REDUCTION TECHNIQUES (RELAXATION/DISTRACTION/REPOSITIONING/BIO FEEDBACK) FOR PAIN MANAGEMENT] Goal Patient Goal - B REATHE BETTER, GET BACK TO WALKING Goal Provider Goal - Goal Provider Goal - PATIENT / CAREGIVER WILL VERBALIZE/DEMONSTRATE UNDERSTANDING OF MEASURES TO MANAGE ALTERED RESPIRATORY STATUS BY END OF EPISODE. Goal Provider Goal - PATIENT/CAREGIVER WILL VERBALIZE/DEMONSTRATE UNDERSTANDING OF CARE AND MANAGEMENT OF OXYGEN THERAPY BY END OF EPISODE Goal Provider Goal - PATIENT/CAREGIVER WILL VERBALIZE/DEMONSTRATE UNDERSTANDING OF FALL RISK FACTORS AND IMPLEMENT STRATEGIES TO MINIMIZE FALL RISK. PATIENT/CAREGIVER WILL VERBALIZE/DEMONSTRATE AN ABILITY TO ADHERE TO FALL REDUCTION SELF-MANAGEMENT AND LIFE-STYLE CHANGES BY EOE Goal Provider Goal - PATIENT / CAREGIVER WILL VERBALIZE/DEMONSTRATE UNDERSTANDING OF MEASURES TO MANAGE ALTERED GENITOURINARY STATUS BY END OF EPISODE. Goal Provider Goal - A PLAN OF [...] MEASURES BY EOE Goal Provider Goal - PATIENT/CAREGIVER WILL VERBALIZE UNDERSTANDING OF SIGNS AND SYMPTOMS THAT PUT THE PATIENT AT RISK FOR HOSPITALIZATION /EMERGENCY ROOM VISITS, WHEN TO NOTIFY NURSE/PHYSICIAN OF COMPLICATIONS/DECLINE AND WHEN TO CALL 911. Goal Provider Goal - PATIENT / CAREGIVER WILL VERBALIZE/DEMONSTRATE UNDERSTANDING OF MEASURES TO MANAGE ALTERED CARDIOVASCULAR STATUS BY EOE Goal Provider Goal - PATIENT / CAREGIVER WILL VERBALIZE/DEMONSTRATE AN ABILITY TO ADHERE TO SELF-MANAGEMENT OF HTN TO MINIMIZE COMPLICATIONS AND AVOID HOSPITALIZATION BY END OF EPISODE. Goal Provider Goal - CHANGES IN SKIN INTEGRITY STATUS WILL BE IDENTIFIED AND REPORTED TO THE PHYSICIAN FOR PROMPT INTERVENTION. PATIENT / CAREGIVER WILL VERBALIZE/DEMONSTRATE ADEQUATE KNOWLEDGE OF INTEGUMENTARY STATUS AND APPROPRIATE MEASURES TO PROMOTE SKIN INTEGRITY AND PREVENT INJURY BY EOE Goal Provider Goal - PATIENT/CAREGIVER WILL VERBALIZE/ DEMONSTRATE AN ABILITY TO ADHERE TO SELF-MANAGEMENT OF ASTHMA TO MINIMIZE COMPLICATIONS AND AVOID HOSPITALIZATIONS BY END OF EPISODE. Goal Provider Goal - PATIENT/CAREGIVER TO VERBALIZE, AND CONSISTENTLY DEMONSTRATE EFFECTIVE, SAFE MANAGEMENT OF MEDICATION INCLUDING KNOWLEDGE OF EFFECTIVENESS, POTENTIAL SIDE EFFECTS AND DRUG REACTIONS AND WHEN TO CONTACT THE APPROPRIATE CARE PROVIDER. PATIENT/CAREGIVER WILL BE ABLE TO VERBALIZE UNDERSTANDING OF MEDICATION REGIMEN AND ACCURATELY TAKE MEDICATIONS PRESCRIBED WITHOUT ADVERSE EFFECTS BY EOE Goal Provider Goal - ST LTG: PATIENT WILL HAVE IMPROVED SAFE ORAL INTAKE EVIDENCED BY SAFELY SWALLOWING THE LEAST RESTRICTIVE DIET CONSISTENCY WITH NO OVERT S SX OF ASPIRATION WITHIN [address]G: PATIENT WILL DEMONSTRATE INCREASED USE OF COMPENSATORY STRATEGIES FROM 0% TO 50% IN ORDER TO IMPROVE SWALLOW SAFETY WITHIN [address] LTG: PATIENT WILL DEMONSTRATE INCREASED USE OF COMPENSATORY STRATEGIES FROM 0% TO 100% IN ORDER TO IMPROVE SWALLOW SAFETY WITHIN [address] LTG: PATIENT/CAREGIVER WILL BE ABLE TO RETURN DEMONSTRATE ABILITY TO PERFORM ORAL HYGIENE TO MINIMIZE THE RISK OF ASPIRATION PNEUMONIA / HEART DISEASE / DM FROM MOD TO MIN WITHIN [address]G: PATIENT WILL BE ABLE TO RETURN DEMONSTRATE THERAPEUTIC EXERCISES FOR IMPROVED SWALLOW FUNCTION FROM MIN-MIN-MOD TO MIN WITHIN [address] LTG: PATIENT WILL BE ABLE TO RETURN DEMONSTRATE THERAPEUTIC EXERCISES FOR IMPROVED SWALLOW FUNCTION FROM MIN-MIN-MOD TO MOD I WITHIN [address] LTG: PATIENT/CAREGIVER WILL DEMONSTRATE ADHERENCE TO FALL REDUCTION SELF-MANAGEMENT AND REDUCING FALL RISK FACTORS TO MINIMIZE FALL RISK BY END OF EPISODE. ST GOAL: PATIENT / CAREGIVER WILL DEMONSTRATE ADHERENCE TO PNEUMONIA / ASPIRATION PNEUMONIA SELF-MANAGEMENT BY END OF EPISODE. ST LTG: PATIENT WILL NOT EXPERIENCE CARDIAC OR RESPIRATORY COMPLICATIONS THROUGHOUT THE EPISODE OF CARE. ST LTG: PATIENT WILL MAINTAIN OXYGEN SATURATION WITHIN PHYSICIAN ORDERED PARAMETERS THROUGHOUT THE EPISODE OF CARE. LTG ST: PATIENT/CAREGIVER WILL DEMONSTRATE UNDERSTANDING OF OXYGEN SAFETY, CARE, AND MANAGEMENT AND PATIENT/CAREGIVER WILL INDEPENDENTLY TITRATE OXYGEN WITHIN PHYSICIAN ORDERED PARAMETERS TO MAINTAIN SAFE OXYGEN LEVELS DURING ACTIVITY BY END OF EPISODE. ST LTG: PATIENT WILL DEMONSTRATE UNDERSTANDING OF PAIN MANAGEMENT TECHNIQUES EVIDENCED BY REDUCED PAIN BY END OF EPISODE Encounters Start Date/Time End Date/Time Encounter Type Admission Type Attending [facility] Care Department Encounter ID Discharge Date Discharge Status Discharge Condition Discharge Reason Percent Goals Met 2024-10-03 00:00:00 2024-12-01 00:00:00 Outpatient LISET LEWIS [facility] [id number] 13.21
== END 2024-10-28 16:41 | disposition home or self-care (01) ==
LOC: HO.HMCH 15:42
PROVIDERS: PCP Internal Medicine; Visit Provider Internal Medicine
DX: B37.2 Candidiasis of skin and nail (principal); R53.81 Other malaise; E66.2 Morbid (severe) obesity with alveolar hypoventilation

== ENCOUNTER → 2024-10-28 15:42 | Outpatient (BNVA) | payer MEDICARE, MEDICAID, SELFPAY | PROVIDERS: PCP Internal Medicine; Visit Provider Internal Medicine | DX: B37.2 Candidiasis of skin and nail (principal); R53.81 Other malaise; E66.2 Morbid (severe) obesity with alveolar hypoventilation | CPT/HCPCS: 96127; 99212 ==

== ENCOUNTER 2024-12-02 10:36 | Outpatient (REF) | payer MEDICARE, MEDICAID, SELFPAY ==
[2024-12-03 11:13] LABS: Appearance Urine Cloudy; Glucose Urine UA Negative (Negative); PH 7.0 (5.0-9.0); Specific Gravity - Urine <= 1.005 (1.005-1.025); UMIC TRIGGER UACC YES
[2024-12-03 11:17] LABS: UACC Culture Trigger YES
--- OUTSIDE RECORDS SUMMARY | 2024-12-03 11:28 | XMS_ITS | Encounter Summary ---
Author Organization [facility] Address [address] [place] [address] Care Team Providers Care Mining Speculator Name Role Phone Unavailable Primary Care Provider Unavailabl e Encounter Details Date Type Department Care Team (Late Contact Info) Description 10/03/2024 Lab Requisition [facility] - Main Lab [address] [facility] [place] [address] Mario Dejesus MD [address] [place] [address] Essential (primary) hypertension; Hypothyroidism, unspecified; Pure hypercholesterolemia [...] 1:00 PM EDT Office Visit Gastroenterology - [place] [address] [facility] [address] [facility] [address] [place] [address] Guera Tejada PA [address] [place] [address] documented as of this encounter Visit Diagnoses Diagnosis Essential (primary) hypertension Unspecified essential hypertension Hypothyroidism, unspecified Pure hypercholesterolemia, unspecified documented in this encounter
--- OUTSIDE RECORDS SUMMARY | 2024-12-03 11:28 | XMS_ITS | Encounter Summary ---
Author Organization [facility] Address [address] [place] [address] Care Team Providers Care Proof Technician Helper Name Role Phone Glory Masters MD Primary Care Prov ider Encounter Details Date Type Department Care Team (Late Contact Info) Description 10/02/2024 Lab Requisition [facility] - Main Lab [address] [facility] [place] [id number] Mario Dejesus MD [address] [place] [address] Hypothyroidism, unspecified Social History Tobacco Use Types Packs/Day [...] 1:00 PM EDT Office Visit Gastroenterology - [place] [address] [facility] [address] [facility] [address] [place] [address] Guera Tejada PA [address] [place] [address] documented as of this encounter Procedures Procedure Name Priority Date/Time Associated Diagnosis Comments THYROID STIMULATING HORMONE Routine 10/02/2024 5:42 AM EDT Hypothyroidism, unspecified documented in this encounter Results * Thyroid stimulating hormone (10/02/2024 5:42 AM EDT) TSH 1.13 0.40 - 4.00 mcIU/mL LAB CHEMISTRY METHOD 10/02/2024 9:43 AM EDT [facility] Blood Venous blood specimen / Unknown Venipuncture / Unknown 10/02/2024 5:42 AM EDT 10/02/2024 8:03 AM EDT us Mario Dejesus MD LAB BLOOD ORDERABLES Final Result [facility] [address] [place] [address], documented in this encounter Visit Diagnoses Diagnosis Hypothyroidism, unspecified documented in this encounter Care Teams Proof Technician Helper Relationship Specialty Start Date End Date Glory Masters MD [address] [place] [id number] PCP - General Internal Medicine 12/06/21 10/02/24 documented as of this encounter
--- OUTSIDE RECORDS SUMMARY | 2024-12-03 11:28 | XMS_ITS | Encounter Summary ---
Author Organization [facility] Address [address] [place] [address] Care Team Providers Care Vice Chair Name Role Phone Glory Masters MD Primary Care Prov ider Encounter Details Date Type Department Care Team (Late Contact Info) Description 09/26/2024 Lab Requisition [facility] [address] [facility] [place] [id number] Mario Dejesus MD [address] [place] [address] Essential (primary) hypertension; Hypothyroidism, unspecified Social History Tobacco Use Types [...] 1:00 PM EDT Office Visit Gastroenterology - [place] [address] [facility] [address] [facility] [address] [place] [address] Guera Tejada PA [address] [place] [address] documented as of this encounter Procedures Procedure Name Priority Date/Time Associated Diagnosis Comments COMPLETE BLOOD COUNT Routine 09/29/2024 6:43 AM EDT Essential (primary) hypertension Hypothyroidism, unspecified MAGNESIUM Routine 09/29/2024 6:43 AM EDT Essential (primary) hypertension Hypothyroidism, unspecified BASIC METABOLIC PANEL Routine 09/29/2024 6:43 AM EDT Essential (primary) hypertension Hypothyroidism, unspecified documented in this encounter Results * Magnesium (09/29/2024 6:43 AM EDT) Pathologist [facility] Magnesium 2.1 1.9 - 2.6 mg/dL LAB CHEMISTRY METHOD 09/29/2024 10:49 AM EDT [facility] Blood Venous blood specimen / Unknown Venipuncture / Unknown 09/29/2024 6:43 AM EDT 09/29/2024 9:24 AM EDT Mario Dejesus MD LAB BLOOD ORDERABLES Final Result [facility] [address] [place] [address], * (ABNORMAL) Complete blood count (09/29/2024 6:43 AM EDT) [facility] WBC 7.6 4.8 - 10.8 K/mcL LAB HEMETOLOGY METHOD 09/29/2024 9:41 AM EDT [facility] RBC 3.50(L) 3.80 - 4.80 M/mcL LAB HEMETOLOGY METHOD 09/29/2024 9:41 AM EDT [facility] Hemoglobin 10.3(L) 11.5 - 16.0 g/dL LAB HEMETOLOGY METHOD 09/29/2024 9:41 AM EDT [facility] Hematocrit 32.0(L) 35.0 - 47.0 % LAB HEMETOLOGY METHOD 09/29/2024 9:41 AM EDT [facility] MCV 90.7 79.0 - 98.0 FL LAB HEMETOLOGY METHOD 09/29/2024 9:41 AM EDT [facility] MCH 29.2 27.0 - 32.0 pcg LAB HEMETOLOGY METHOD 09/29/2024 9:41 AM EDT [facility] MCHC 32.2 32.0 - 37.0 g/dL LAB HEMETOLOGY METHOD 09/29/2024 9:41 AM EDT [facility] RDW 14.6 11.0 - 15.0 % LAB HEMETOLOGY METHOD 09/29/2024 9:41 AM EDT [facility] Platelets 300 130 - 400 K/mcL LAB HEMETOLOGY METHOD 09/29/2024 9:41 AM EDT [facility] MPV 11.4(H) 7.0 - 11.0 FL LAB HEMETOLOGY METHOD 09/29/2024 9:41 AM EDT [facility] NRBC 0.0 <1.0 % LAB HEMETOLOGY METHOD 09/29/2024 9:41 AM EDT [facility] NRBC Absolute 0.00 <0.10 K/mcL LAB HEMETOLOGY METHOD 09/29/2024 9:[address] [facility] Blood Venous blood specimen / Unknown Venipuncture / Unknown 09/29/2024 6:43 AM EDT 09/29/2024 9:24 AM EDT us Mario Dejesus MD LAB BLOOD ORDERABLES Final Result [facility] [address] [place] [address], * (ABNORMAL) Basic metabolic panel (09/29/2024 6:43 AM EDT) [facility] Sodium 137 133 - 145 mmol/L LAB CHEMISTRY METHOD 09/29/2024 10:[address] [facility] Potassium 4.0 3.5 - 5.5 mmol/L LAB CHEMISTRY METHOD 09/29/2024 10:[address] [facility] Chloride 98 96 - 110 mmol/L LAB CHEMISTRY METHOD 09/29/2024 10:[address] [facility] CO2 34(H) 21 - 32 mmol/L LAB CHEMISTRY METHOD 09/29/2024 10:[address] [facility] Anion Gap 5 3 - 11 LAB CHEMISTRY METHOD 09/29/2024 10:[address] [facility] Glucose 73 70 - 100 mg/dL LAB CHEMISTRY METHOD 09/29/2024 10:[address] [facility] BUN 27(H) 5 - 25 mg/dL LAB CHEMISTRY METHOD 09/29/2024 10:[address] [facility] Creatinine 1.13(H) 0.50 - 1.10 mg/dL LAB CHEMISTRY METHOD 09/29/2024 10:[address] [facility] eGFR 52(L) >=60 mL/min/1. 73m2 LAB CHEMISTRY METHOD 09/29/2024 10:[address] [facility] Comment:Calculation based on the Chronic Kidney Disease Epidemiology Collaboration (CKD-EPI) equation refit without adjustment for race. BUN/Creatinine Ratio 23.9 LAB CHEMISTRY METHOD 09/29/2024 10:[address] [facility] Calcium 8.0(L) 8.5 - 10.5 mg/dL LAB CHEMISTRY METHOD 09/29/2024 10:[address] [facility] Blood Venous blood specimen / Unknown Venipuncture / Unknown 09/29/2024 6:43 AM EDT 09/29/2024 9:24 AM EDT Mario Dejesus MD LAB BLOOD ORDERABLES Final Result [facility] [address] [place] [address], documented in this encounter Visit Diagnoses Diagnosis Essential (primary) hypertension Unspecified essential hypertension Hypothyroidism, unspecified documented in this encounter Care Teams Vice Chair Relationship Specialty Start Date End Date Glory Masters MD [address] [place] [id number] PCP - General Internal Medicine 12/06/21 10/02/24 documented as of this encounter
--- OUTSIDE RECORDS SUMMARY | 2024-12-03 11:28 | XMS_ITS | Clinical Summary ---
Author Organization [facility] Address [address] [facility] [address] [place] [address] Phone Care Team Providers Care Marine Cargo Surveyor Name Role Phone Hilda Khalil MD Primary Care Provider [phone] Allergies Active Allergy Reactions Criticality Noted Date [...] 4 Active furosemide (LASIX) 40 MG tablet Take 2 tablets (80 mg total) by mouth 1 (one) time each day 180 tablet 5 5 Active Active Problems Problem Noted Date Diagnosed [...] Hyperlipidemia 06/27/2020 Essential (primary) hypertension 06/27/2020 Immunizations Immunization Administration Dates Next Due Influenza Split High Dose Pr eservative Free IM 01/30/2023,12/22/2021,02/25/2021,12/08 Influenza TIV (IM) 01/05/2020 Influenza, Unspecified 01/05/2020,2017,12/04/2011,12/22,12/30/2009 PPD Test 04/11/2021,10/05/2020 Pfizer SARS-COV-2 04/06/2023,06/14/2021,05/20/19 22 Pneumococcal Conjugate 13-Valent 10/19/2017,03/09 Pneumococcal Polysaccharide 11/20/2019 [...] EST Inhaled Oxygen Concentration - - Weight 142 kg (312 lb) 08/13/2024 3:23 PM EDT Height - - Body Mass Index - - Plan of Treatment Upcoming Encounters Date Type Department Care Team (Late st Contact Info) Description 02/12/2025 4:15 PM EST Telemedicine [facility] [address] [address] Butch Sharpe MD [address] [address] Health Maintenance Due Date Last Done Comments Breast Cancer Screening 1952 Colorectal Cancer Screening: Annual FOBT 2001 Colorectal Cancer Screening: Colonoscopy 2001 Colorectal Cancer Screening: Sigmoidoscopy 2001 Influenza Vaccine (#1) 2024 , 12/22/2021, 02/25/2021, Additional history exists Pneumococcal Vaccine: 50+ Years Completed 11/20/2019, 10/19/2017, 03/23/2015 Pneumococcal Vaccine: Peds (0 to 5 Years) and At-Risk Patients (6 to 49 Years) Discontinued 11/20/2019, 10/19/2017, 03/23/2015 Hepatitis B Vaccine Aged Out No longe r eligible based on patient's age to complete this topic Insurance Medicare Medicaid [place] Medicare Medicaid [place] Care Teams Marine Cargo Surveyor Relationship Specialty Start Date End Date Hilda Khalil MD [address] [place], [place] PCP - General Internal Medicine 08/13/24
--- OUTSIDE RECORDS SUMMARY | 2024-12-03 11:28 | XMS_ITS | Encounter Summary ---
Author Organization [facility] Address [address] [facility] [address] [place] [address] Phone Care Team Providers Care Butadiene Converter Helper Name Role Phone Hilda Khalil MD Primary Care Provider [phone] Reason for Visit * Reason Comments Med Refill Encounter Details Date Type Department Care Team (Late st Contact Info) Description 05/04/2023 Refill [facility] [address] [facility] [address] [place] [address] Butch Sharpe MD [address] [address] Social History Tobacco Use Types [...] Telemedicine [facility] [address] [facility] [address] [place] [address] Butch Sharpe MD [facility] [address] [place] [address] documented as of this encounter Visit Diagnoses Not on filedocumented in this encounter Care Teams Butadiene Converter Helper Relationship Specialty Start Date End Date Hilda Khalil MD [address] [place], [place] PCP - General Internal Medicine 08/13/24 documented as of this encounter
--- OUTSIDE RECORDS SUMMARY | 2024-12-03 11:28 | XMS_ITS | Clinical Summary ---
Author Organization [facility] Address [address] [place] [address] Phone Care Team Providers Care [facility] Hand Name Role Phone Unavailable Primary Care Provider Unavailabl e Allergies Active Allergy Reactions Criticality Noted Date Comments Celecoxib Rash 07/11/2010 Other Reaction(s): Rash/Dermatitis Ibuprofen 04/20/2015 Other Reaction(s): Rash/Dermatitis Latex Rash 03/10/2024 Medications fluticasone-salm eterol (Advair Diskus) 250-50 mcg/dose diskus inhaler Active furosemide (LASIX) 40 mg tablet TAKE TWO TABLETS BY MOUTH TWICE A DAY (PACKAGE 2 TABLETS DAILY) ^2R1 024 Active pregabalin (LYRICA) 225 mg capsule Take 1 capsule (225 mg total) by mouth 2 (two) times a day. 022 Active psyllium husk, with sugar, (Fiber, psyllium husk-sugar,) 3.4 gram/7 gram powder Take 1 Dose by mouth. 024 Active calcium polycarbophil (FIBER-TABS ORAL) Take 1 capsule by mouth 1 (one) time each day. 024 Active polyethylene glycol (GoLYTELY) 236-22.74-6.74 -5.86 gram [...] 5 hours before your procedure. 4000 mL 024 Active senna (SENOKOT) 8.8 mg/5 mL syrup Take 5 mL by mouth 3 (three) times a day if needed for constipation. 240 mL 3 024 Active Additional Information Patient not taking.Reported on 07/09/2024 bisacodyL (DULCOLAX) 5 mg EC tablet Take 2 tablets by mouth right before beginning bowel prep. See instructions provided by the office 2 tablet 024 Active polyethylene glycol (Golytely) 236-22.74-6.74 -5.86 gram solution Take 4L by mouth once for one dose. May substitue any PEG. Starting at 6PM the night before your procedure drink 1 8oz glasses at your own pace until you complete half of the gallon. Finish 2nd half of the gallon 5 hours before your procedure. 4000 mL 024 Active fexofenadine (STEVE) 180 mg tablet Take 1 tablet (180 mg total) by mouth 1 (one) time each day. Active triamcinolone (NASACORT) 55 mcg nasal inhaler Administer 2 sprays into each nostril 1 (one) time each day. 024 Active cholestyramine (QUESTRAN) 4 gram powder Take [...] Additional Information Patient not taking.Reported on 07/09/2024 polyethylene glycol (Golytely) 236-22.74-6.74 -5.86 gram solution Take 4L by mouth once for one dose. May substitue any PEG. Starting at 6PM the night before your procedure drink 1 8oz glasses at your own pace until you complete half of the gallon. Finish 2nd half of the gallon 5 hours before your procedure. 4000 mL Active bisacodyL (DULCOLAX) 5 mg EC tablet Take 2 tablets by mouth right before beginning bowel prep. See instructions provided by the office 2 tablet Active Oxygen Therapy via Nasal Cannula (O2) gas Inhale 3 L/min by mouth continuously. Active clotrimazole-bet amethasone (LOTRISONE) 1-0.05 % cream APPLY A THIN LAYER TO THE LESIONS UNDER THE BREASTS THREE TIMES A DAY (BULK) 30 g 3 Active CitruceL 500 mg tablet TAKE ONE TABLET BY MOUTH EVERY DAY 30 tablet 3 025 Active FeroSuL 325 mg (65 mg iron) tablet TAKE ONE TABLET BY MOUTH EVERY DAY ^1R1 30 tablet Active dexlansoprazole (DEXILANT) [address] capsuleIndicatio ns:Chronic constipation TAKE 1 CAPSULE BY MOUTH EVERY DAY (VIAL) 30 capsule 3 Active carvediloL (COREG) 6.25 mg tablet TAKE ONE TABLET BY MOUTH TWICE A DAY WITH MEALS ^1R1,1R4 60 tablet 025 Active montelukast (SINGULAIR) 10 mg tablet TAKE ONE TABLET BY MOUTH EVERY EVENING AT BEDTIME ^1R4 30 tablet 025 Active levothyroxine (SYNTHROID, LEVOTHROID) 50 mcg tablet TAKE ONE TABLET BY MOUTH EVERY DAY ^1R1 30 tablet 025 Active atorvastatin (LIPITOR) 10 mg tablet TAKE ONE TABLET BY MOUTH EVERY DAY ^1R4 30 tablet 025 Active magnesium oxide (MAG-OX) 400 mg (241.3 elemental magnesium) tablet TAKE ONE TABLET BY MOUTH EVERY DAY ^1R4 30 tablet 025 Active losartan (COZAAR) 25 mg tablet TAKE ONE TABLET BY MOUTH EVERY DAY ^1R4 30 tablet 025 Active ondansetron (ZOFRAN) 4 mg tablet TAKE ONE TABLET BY MOUTH EVERY 8 HOURS NEEDED FOR NAUSEA OR VOMITING (VIAL) 30 tablet 1 025 Active dicyclomine (BENTYL) 10 mg capsule TAKE ONE CAPSULE BY MOUTH THREE TIMES A DAY NEEDED FOR DIARRHEA (VIAL) 90 capsule 3 025 Active dicyclomine (BENTYL) 10 mg capsule TAKE ONE CAPSULE BY MOUTH THREE TIMES A DAY NEEDED FOR DIARRHEA (VIAL) 90 capsule 3 08/07/ 025 2024 Discontinued ondansetron (ZOFRAN) 4 mg tablet Take 1 tablet (4 mg total) by mouth every 8 (eight) hours if needed for nausea or vomiting. 30 tablet 1 025 2024 Discontinued Active Problems Problem Noted Date Diagnosed Date At risk for falling 01/16/2024 Morbid obesity with BMI of 5 0.0-59.9, adult ([facility] V24, [facility] V28) 01/16/2024 Stage 3a chronic kidney disease ([facility] V24, [facility] /[facility] V28) 05/16/2023 Shortness of breath 07/14/2022 Overview (01/16/2024): Last Assessment & Plan: Likely secondary to combination of oxygen dependent COPD and diastolic heart failure. Urinary incontinence, mixed 02/06/2022 Overview (01/16/2024): [facility] Urology Supplemental oxygen dependent 02/06/2022 Overview (01/16/2024): [...] Encounters Date Type Department Care Team Description 10/08/2024 1:00 PM EDT Telemedicine Pulmonolgy [address] [phone] Jimi Ureña MD Morbid obesity with BMI of 50.0-59.9, adult (CMS/HCC V24, [facility] V28) (Primary Dx); Obstructive sleep apnea; Moderate asthma, unspecified whether complicated, unspecified whether persistent; Upper respiratory tract infection, unspecified type 10/06/2024 Telephone Pulmonolgy [facility] [address] [phone] Jimi Ureña MD 10/03/2024 Lab Requisition [facility] [address] [place] [phone] Mario Dejesus MD Essential (primary) hypertension; Hypothyroidism, unspecified; Pure hypercholesterolemia , unspecified 10/02/2024 Lab Requisition [facility] [address] [place] [phone] Mario Dejesus MD Hypothyroidism, unspecified 09/26/2024 Lab Requisition [facility] [address] [place] [phone] Mario Dejesus MD Essential (primary) hypertension; Hypothyroidism, unspecified 09/17/2024 Telephone Pulmonolgy - [facility] 175 [facility] [address] [place] [phone] Jimi Ureña MD from Last 3 Months Immunizations Name Administration [...] (BMI) of 60.0 to 69.9 in adult ([facility] V24, [facility] V28) 09/06/2016 DX:Morbid obesity with body mass index (BMI) of 60.0 to 69.9 in adult ([facility]) Peripheral neuropathy 07/11/2010 DX:Periphe ral neuropathy Prediabetes 07/17/2017 DX:Prediabetes MISSY on CPAP 10/06/2016 DX:MISSY on CPAP Urinary incontinence, mixed 02/06/2022 DX:U rinary incontinence, mixed; COMMENT: [facility] Urology Morbid obesity with BMI of 5 0.0-59.9, adult ([facility] V24, [facility] V28) 09/06/2016 DX:Morbid obesity wit h BMI of 50.0-59.9, adult ([facility]) Supplemental oxygen dependent 02/06/2022 DX :Supplemental oxygen [...] Care Team (Late st Contact Info) Description 07/09/2025 1:00 PM EDT Office Visit Gastroenterology - [facility] [address] [facility] [address] [place] [phone] Guera Tejada PA [address] [place] [phone] Health Maintenance Due Date Last Done Comments RSV Immunization Adult Patients (1 - Risk 60-74 years 1-dose series) 2012 DTaP,Tdap,and Td Vaccines (2 - Td or Tdap) 11/21/2020 11/21/2010 Osteoporosis Screening (Bone Density Screening) 03/18/2022 Social Influencers of Health Screening 03/18/2022 Breast Cancer Screening 07/20/2022 07/21/19, 07/20/2020, 10/30/2018, Additional history exists COVID-19 Vaccine (2023- season) 2023 04/06/2023, 06/14/2021, 05/20/2021 Depression Screening 04/09/2024 05/07/2023 Falls Risk Assessment 05/07/2024 05/07/2023, 024 Medicare Annual Wellness Visit 05/07/2024 05/07/2023 Influenza Vaccine (#1) 2024 , 12/22/2021, 02/25/2021, Additional history exists Hypertension/CHF/CAD Annual BMP Blood Test 09/29/2025 09/29/2024, 07/17/2023 Cholesterol Screening (Lipid Panel) 07/16/2028 07/17/2023, 07/17/2023 [...] Routine 10/02/2024 5:42 AM EDT Hypothyroidism, unspecified MAGNESIUM Routine 09/29/2024 6:43 AM EDT Essential (primary) hypertension Hypothyroidism, unspecified COMPLETE BLOOD COUNT Routine 09/29/2024 6:43 AM EDT Essential (primary) hypertension Hypothyroidism, unspecified BASIC METABOLIC PANEL Routine 09/29/2024 6:43 AM EDT Essential (primary) hypertension Hypothyroidism, unspecified LIPID PANEL Routine 07/17/2023 DEPRESSION SCREENING Routine 05/07/2023 FALLS RISK ASSESSMENT Routine 05/07/2023 [facility] SCREENING DIGITAL Routine 07/20/2020 3:36 PM EDT Encounter for screening mammogram for malignant neoplasm of breast HEPATITIS C SCREENING Routine 03/19/2020 COLONOSCOPY Routine 11/06/2018 from Last 3 Months or Most Recently Relevant to Health Maintenance Results * Thyroid stimulating hormone (10/02/2024 5:42 AM EDT) TSH 1.13 0.40 - 4.00 mcIU/mL LAB CHEMISTRY METHOD 10/02/2024 9:43 AM EDT [facility] Blood Venous blood specimen / Unknown Venipuncture / Unknown 10/02/2024 5:42 AM EDT 10/02/2024 8:03 AM EDT Mario Dejesus MD LAB BLOOD ORDERABLES Final Result [facility] [address] [place] [address], * (ABNORMAL) Complete blood count (09/29/2024 6:43 AM EDT) Pathologist [facility] WBC 7.6 4.8 - 10.8 K/mcL LAB HEMETOLOGY METHOD 09/29/2024 9:41 AM EDT [facility] RBC 3.50(L) 3.80 - 4.80 M/mcL LAB HEMETOLOGY METHOD 09/29/2024 9:41 AM EDT [facility] Hemoglobin 10.3(L) 11.5 - 16.0 g/dL LAB HEMETOLOGY METHOD 09/29/2024 9:41 AM EDT [facility] Hematocrit 32.0(L) 35.0 - 47.0 % LAB HEMETOLOGY METHOD 09/29/2024 9:41 AM EDT [facility] MCV 90.7 79.0 - 98.0 FL LAB HEMETOLOGY METHOD 09/29/2024 9:41 AM EDT [facility] MCH 29.2 27.0 - 32.0 pcg LAB HEMETOLOGY METHOD 09/29/2024 9:41 AM EDT [facility] MCHC 32.2 32.0 - 37.0 g/dL LAB HEMETOLOGY METHOD 09/29/2024 9:41 AM EDT [facility] RDW 14.6 11.0 - 15.0 % LAB HEMETOLOGY METHOD 09/29/2024 9:41 AM EDT [facility] Platelets 300 130 - 400 K/mcL LAB HEMETOLOGY METHOD 09/29/2024 9:41 AM T [facility] MPV 11.4(H) 7.0 - 11.0 FL LAB HEMETOLOGY METHOD 09/29/2024 9:41 AM EDT [facility] NRBC 0.0 <1.0 % LAB HEMETOLOGY METHOD 09/29/2024 9:41 AM EDT [facility] NRBC Absolute 0.00 <0.10 K/mcL LAB HEMETOLOGY METHOD 09/29/2024 9:41 AM T [facility] Blood Venous blood specimen / Unknown Venipuncture / Unknown 09/29/2024 6:43 AM EDT 09/29/2024 9:24 AM EDT us Mario Dejesus MD LAB BLOOD ORDERABLES Final Result [facility] [address] [place] [address], * Magnesium (09/29/2024 6:43 AM EDT) Magnesium 2.1 1.9 - 2.6 mg/dL LAB CHEMISTRY METHOD 09/29/2024 10:49 AM [facility] Blood Venous blood specimen / Unknown Venipuncture / Unknown 09/29/2024 6:43 AM EDT 09/29/2024 9:24 AM EDT us Mario Dejesus MD LAB BLOOD ORDERABLES Final Result [facility] [address] [place] [address], [place] [phone] * (ABNORMAL) Basic metabolic panel (09/29/2024 6:43 AM EDT) Sodium 137 133 - 145 mmol/L LAB CHEMISTRY METHOD 09/29/2024 10:49 AM [facility] Potassium 4.0 3.5 - 5.5 mmol/L LAB CHEMISTRY METHOD 09/29/2024 10:49 AM [facility] Chloride 98 96 - 110 mmol/L LAB CHEMISTRY METHOD 09/29/2024 10:49 AM [facility] CO2 34(H) 21 - 32 mmol/L LAB CHEMISTRY METHOD 09/29/2024 10:49 AM [facility] Anion Gap 5 3 - 11 LAB CHEMISTRY METHOD 09/29/2024 10:49 AM [facility] Glucose 73 70 - 100 mg/dL LAB CHEMISTRY METHOD 09/29/2024 10:49 AM [facility] BUN 27(H) 5 - 25 mg/dL LAB CHEMISTRY METHOD 09/29/2024 10:49 AM [facility] Creatinine 1.13(H) 0.50 - 1.10 mg/dL LAB CHEMISTRY METHOD 09/29/2024 10:49 AM [facility] eGFR 52(L) >=60 mL/min/1. 73m2 LAB CHEMISTRY METHOD 09/29/2024 10:49 AM EDT [facility] Comment:Calculation based on the Chronic Kidney Disease Epidemiology Collaboration (CKD-EPI) equation refit without adjustment for race. BUN/Creatinine Ratio 23.9 LAB CHEMISTRY METHOD 09/29/2024 10:49 AM EDT [facility] Calcium 8.0(L) 8.5 - 10.5 mg/dL LAB CHEMISTRY METHOD 09/29/2024 10:49 AM EDT [facility] Blood Venous blood specimen / Unknown Venipuncture / Unknown 09/29/2024 6:43 AM EDT 09/29/2024 9:24 AM EDT Mario Dejesus MD LAB BLOOD ORDERABLES Final Result [facility] [address] [place] [address], [place] [phone] * Lipid panel (07/17/2023) LDL/HDL Ratio 3 0 - 4 Triglycerides 127 0 - 150 mg/dL Cholesterol 141 0 - 200 mg/dL HDL 53 >=40 mg/dL LDL Cholesterol 63 0 - 100 mg/dL Blood Venous blood specimen / Unknown Naomi Warner MD LAB BLOOD ORDERABLES Angelia l Result * Falls Risk Assessment (05/07/2023) Falls Risk Assessment ABSTRACTED Historical Provider HEALTH MAINTENANCE Final Result * Depression Screening (05/07/2023) Depression Screening ABSTRACTED Historical Provider HEALTH MAINTENANCE Final Result * [place] SCREENING DIGITAL (07/20/2020 3:36 PM EDT) Anatomical Region Laterality Modality Mammography 07/20/2020 2:39 PM EDT Narrative 07/20/2020 3:36 PM EDT [facility] Diagnostic Imaging Department [address] [place] [address] Patient: ALLEN NEUMANN /Age/Sex: 1950 - 69 - F Unit#: [id number] Location/Status: SPDIMAM/REG CLI Mnemonic/Ordering Site: [facility] Ordering Physician: LUIS GAMA MD [facility] Screening Digital - 07/20/20 - 152 EXAM: [facility] Screening Digital EXAM DATE AND TIME: 07/20/2020 3:22 PM HISTORY: Screening. COMPARISON: 10/29/18, 10/25/17, 04/21/16, 08/21/14 TECHNIQUE: CC and MLO views of both breasts were obtained using full field digital mammography. Bilateral digital breast tomosynthesis was performed in the MLO projection. Computer aided detection with the [employer] 7.2-H was employed. TISSUE DENSITY: a. The breasts are almost entirely fatty. FINDINGS: Positioning is limited. No suspicious masses, grouped microcalcifications, or areas of architectural distortion are seen. The skin and vascularity are unremarkable. IMPRESSION: Stable mammographic appearance of the breasts. No evidence of malignancy is seen. A negative mammogram in the presence of a clinically suspicious palpable abnormality does not preclude the possibility of malignancy or alter the indications for biopsy. BI-RADS: Category 1: Negative RECOMMENDATION(S): 1: Routine screening mammogram BILATERAL in 1 year. [id number], [id number], [id number] Dictating Physician: CLARIBEL ALBA MD Electronically Signed by: CLARIBEL ALBA MD Dic Date/Time: 07/20/20 1535 Sign date/Time: 07/20/20 1536 Procedure Note Claribel Alba MD - 03/28/2022 [facility] Diagnostic Imaging Department [address] [place] [id number] Patient: ALLEN NEUMANN Stanislav /Age/Sex: 1950 - F Unit#: [id number] Location/Status: SPDIMA/REG CLI Mnemonic/Ordering Site: [facility] Ordering Physician: LUIS GAMA MD [facility] Screening Digital - 07/20/20 - 152 EXAM: [facility] Screening Digital EXAM DATE AND TIME: 07/20/2020 3:22 PM HISTORY: Screening. COMPARISON: 10/29/18, 10/25/17, 04/21/16, 08/21/14 TECHNIQUE: CC and MLO views of both breasts were obtained using fullfield digital mammography. Bilateral digital breast tomosynthesis was performedin the MLO projection. Computer aided detection with the [employer] 7.2-[place] employed. TISSUE DENSITY: a. The breasts are [...] Routine screening mammogram BILATERAL in 1 year. [id number], [id number] 3341F, [id number] Dictating Physician: CLARIBEL ALBA MD Electronically Signed by: CLARIBEL ALBA MD Dic Date/Time: 07/20/201534 Sign date/Time: 07/20/20 1536 Luis Gama MD IMG BI PROCEDURES Final Result * Hepatitis C Screening (03/19/2020) Hepatitis C Screening ABSTRACTED Historical Provider HEALTH MAINTENANCE Final Result * Colonoscopy (11/06/2018) Colonoscopy NO INTERPRETATION , ABSTRACTED Anatomical Region Laterality Modality Other Historical Provider HEALTH MAINTENANCE Final Result from Last 3 Months or Most Recently Relevant to Health Maintenance Insurance [place]ICARE [place]ICAID [place] Advance Directives Documents on File Type Date Recorded Patient Family Specialist Expl anation Health Care Decision (hx) 07/03/2023 AD MARIN DIRECTIVE Health Care Decision (hx) 07/03/2023 AD MARNI DIRECTIVE Health Care Decision (hx) 07/03/2023 AD MARIN DIRECTIVE
== END 2024-12-02 10:37 | disposition home or self-care (01) ==
LOC: HO.LNP 10:36
PROVIDERS: Visit Provider Internal Medicine
DX: R30.0 Dysuria (principal)
CPT/HCPCS: 81001; 81003; 87086

== ENCOUNTER → 2024-12-15 23:59 | Outpatient (BNV) | payer MEDICARE, MEDICAID, SELFPAY | PROVIDERS: PCP Internal Medicine; Visit Provider Internal Medicine | DX: J84.9 Interstitial pulmonary disease, unspecified (principal); J45.909 Unspecified asthma, uncomplicated | CPT/HCPCS: G0179 ==

== ENCOUNTER 2025-02-03 13:31 | Outpatient (REF) | payer MEDICARE, MEDICAID, SELFPAY ==
[2025-02-03 13:53] LABS: MANUAL DIFF FLAG NO
[2025-02-03 14:23] LABS: Hematocrit 41.1 % (37.0-47.0); Hemoglobin 13.1 g/dl (12.0-16.0); Imm Gran Abs Auto 0.01 X10*3/uL (0.00-0.03); Imm Gran Pct Auto 0.2 % (0.0-0.4); Lymphocytes Absolute Auto 1.6 X10*3/uL (1.2-4.9); Mean Corpuscular HGB Conc 31.9 g/dl (31.0-35.0); Mean Corpuscular Hemoglobin 28.4 pg (27.0-33.0); Mean Corpuscular Volume 89.2 fL (80.0-98.0); NRBC Abs Auto 0.000 X10*3/uL (0.0-0.012); NRBC Pct Auto 0.0 /100WBC (0.0-0.2); Platelet Count 212 X10*3/uL (160-400); Red Blood Count 4.61 X10*6/uL (4.20-5.50); White Blood Count 6.7 X10*3/uL (4.8-10.8)
[2025-02-03 14:34] LABS: Appearance Urine Clear; Glucose Urine UA Negative (Negative); PH 5.5 (5.0-9.0); Specific Gravity - Urine 1.010 (1.005-1.025); UMIC TRIGGER UACC YES
[2025-02-03 15:02] LABS: Alanine Aminotransferase 18 U/L (0-31); Albumin Level 4.0 g/dL (3.5-5.0); Alkaline Phosphatase 77 U/L (39-117); Anion Gap 11 (12-20); Aspartate Amino Transferase 29 U/L (5-31); Blood Urea Nitrogen 15 mg/dL (9-16); Calcium 8.8 mg/dL (8.4-10.2); Carbon Dioxide 31 mmol/L (22-29); Chloride 103 mmol/L (96-108); Cholesterol 144 mg/dL (<200); Estimated Glomerular Filt Rate 48; HDL Cholesterol 44 mg/dL (>40); Potassium 4.8 mmol/L (3.3-5.1); Sodium 140 mmol/L (135-145); Total Protein 7.2 g/dL (6.5-8.0); Triglycerides 144 mg/dL (<150)
[2025-02-03 15:04] LABS: Parathyroid Hormone Intact 84.4 pg/mL (8.7-77.1)
[2025-02-03 15:10] LABS: Albumin Level 4.0 g/dL (3.5-5.0); Anion Gap 13 (12-20); Blood Urea Nitrogen 15 mg/dL (9-16); Calcium 8.9 mg/dL (8.4-10.2); Carbon Dioxide 29 mmol/L (22-29); Chloride 103 mmol/L (96-108); Estimated Glomerular Filt Rate 48; Magnesium 2.4 mg/dL (1.6-2.6); Potassium 4.9 mmol/L (3.3-5.1); Sodium 140 mmol/L (135-145)
[2025-02-03 15:21] LABS: Thyroid Stimulating Hormone 1.09 uIU/mL (0.32-4.0)
[2025-02-03 15:51] LABS: Total Protein Urine Random < 7 mg/dL (<12)
--- OUTSIDE RECORDS SUMMARY | 2025-02-03 17:29 | XMS_ITS | Clinical Summary ---
Author Organization [facility] Address [address] [place] [address] Phone Care Team Providers Care Purification Supervisor Name Role Phone Unavailable Primary Care [...] DAY (BULK) 30 g 3 025 Active FeroSuL 325 mg (65 mg iron) tablet TAKE ONE TABLET BY MOUTH EVERY DAY ^1R1 30 tablet 025 Active carvediloL (COREG) 6.25 mg tablet TAKE [...] DIARRHEA (VIAL) 90 capsule 3 025 Active CitruceL 500 mg tablet TAKE ONE TABLET BY MOUTH EVERY DAY1QD 30 tablet 3 025 Active dexlansoprazole (DEXILANT) [address] capsuleIndicatio ns:Chronic constipation Take 1 capsule (60 mg total) by mouth 1 (one) time each day. Do not crush or chew. 30 capsule 5 Active dexlansoprazole (DEXILANT) [address] capsuleIndicatio ns:Chronic constipation TAKE 1 CAPSULE BY MOUTH EVERY DAY (VIAL) 30 capsule 5 Active colestipoL (COLESTID) 1 gram tablet Take 2 tablets (2 g total) by mouth 2 (two) times a day. 60 each 3 025 2025 Active CitruceL 500 mg tablet TAKE ONE TABLET BY MOUTH EVERY DAY 30 tablet 3 025 2024 Discontinued dexlansoprazole (DEXILANT) [address] capsuleIndicatio ns:Chronic constipation Take 1 capsule (60 mg total) by mouth 1 (one) time each day. Do not crush or chew. 30 capsule 3 025 2024 Discontinued ciprofloxacin (CIPRO) 500 mg tablet Take 1 tablet (500 mg total) by mouth 2 (two) times a day for 10 days. 20 each 025 2024 metroNIDAZOLE (FLAGYL) 500 mg tabletIndication s:infectious disease of abdomen Take 1 tablet (500 mg total) by mouth 3 (three) times a day for 10 days. Do not use mouth wash or consume alcohol until 48 hours after last dose 30 each 025 2024 Active Problems Problem Noted Date Diagnosed Date At risk for falling 01/16/2024 Morbid obesity with BMI of 5 0.0-59.9, adult ([facility] V24, [facility] V28) 01/16/2024 Stage 3a chronic kidney disease ([facility] V24, [facility] V28) 05/16/2023 Shortness of breath 07/14/2022 Overview (01/16/2024): Last Assessment & Plan: Likely secondary to combination of oxygen dependent COPD and diastolic heart failure. Urinary incontinence, mixed 02/06/2022 Overview (01/16/2024): [facility] Urology Supplemental oxygen dependent 02/06/2022 Overview [...] Encounters Date Type Department Care Team Description 01/23/2025 Telephone Gastroenterology - [place] [address] [place] [address] Guera Tejada PA 01/07/2025 Telephone Gastroenterology - [place] [address] [place] [address] Guera Tejada PA from Last 3 Months Immunizations Immunization Administration Dates Next Due Influenza trivalent, 0.5mL [...] (BMI) of 60.0 to 69.9 in adult ([facility] V24, [facility] V28) 09/06/2016 DX:Morbid obesity with body mass index (BMI) of 60.0 to 69.9 in adult ([facility]) Peripheral neuropathy 07/11/2010 DX:Periphe ral neuropathy Prediabetes 07/17/2017 DX:Prediabetes MISSY on CPAP 10/06/2016 DX:MISSY on CPAP Urinary incontinence, mixed 02/06/2022 DX:U rinary incontinence, mixed; COMMENT: [facility]rology Morbid obesity with BMI of 5 0.0-59.9, adult ([facility] V24, [facility] V28) 09/06/2016 DX:Morbid obesity wit h BMI of 50.0-59.9, adult ([facility]) Supplemental oxygen dependent 02/06/2022 DX :Supplemental oxygen dependent; COMMENT: 3 L 30/10 Wheelchair dependent 02/06/2022 DX:Wheelcha ir dependent Family [...] 1:00 PM EDT Office Visit Gastroenterology - [address] [place] [address] Guera Tejada PA [address] [place] [address] Health Maintenance Due Date Last Done Comments RSV Immunization Adult Patients (1 - Risk 50-74 years 1-dose series) 2002 DTaP,Tdap,and Td Vaccines (2 - Td or Tdap) 11/21/2020 11/21/2010 Osteoporosis Screening (Bone Density Screening) 03/18/2022 Social Influencers of Health Screening 03/18/2022 Breast Cancer Screening 07/20/2022 07/21/19, 07/20/2020, 10/30/2018, Additional history exists Depression Screening 04/09/2024 05/07/2023 Falls Risk Assessment 05/07/2024 05/07/2023, 024 Medicare Annual Wellness Visit 05/07/2024 05/07/2023 COVID-19 Vaccine ( season) 2024 04/06/2023, 06/14/2021, 05/20/2021 Influenza Vaccine (#1) 2024 , 12/22/2021, 02/25/2021, [...] Procedure Name Priority Date/Time Associated Diagnosis Comments BASIC METABOLIC PANEL Routine 09/29/2024 6:43 AM EDT Essential (primary) hypertension Hypothyroidism, unspecified LIPID PANEL Routine 07/17/2023 DEPRESSION SCREENING Routine 05/07/2023 FALLS RISK ASSESSMENT Routine 05/07/2023 LASHAWN SCREENING DIGITAL Routine 07/20/2020 3:36 PM EDT Encounter for screening mammogram for malignant neoplasm of breast HEPATITIS C SCREENING Routine 03/19/2020 COLONOSCOPY Routine 11/06/2018 from Last 3 Months or Most Recently Relevant to Health Maintenance Results * (ABNORMAL) Basic metabolic panel (09/29/2024 6:43 AM EDT) Sodium 137 133 - 145 mmol/L LAB CHEMISTRY METHOD 09/29/2024 10:49 AM [facility] Potassium 4.0 3.5 - 5.5 mmol/L LAB CHEMISTRY METHOD 09/29/2024 10:49 AM [facility] Chloride 98 96 - 110 mmol/L LAB CHEMISTRY METHOD 09/29/2024 10:49 AM [facility] CO2 34(H) 21 - 32 mmol/L LAB CHEMISTRY METHOD 09/29/2024 10:49 AM [facility] Anion Gap 5 3 - 11 LAB CHEMISTRY METHOD 09/29/2024 10:49 AM [facility] Glucose 73 70 - 100 mg/dL LAB CHEMISTRY METHOD 09/29/2024 10:49 AM [facility] BUN 27(H) 5 - 25 mg/dL LAB CHEMISTRY METHOD 09/29/2024 10:49 AM [facility] Creatinine 1.13(H) 0.50 - 1.10 mg/dL LAB CHEMISTRY METHOD 09/29/2024 10:49 AM [facility] eGFR 52(L) >=60 mL/min/1. 73m2 LAB CHEMISTRY METHOD 09/29/2024 10:49 AM [facility] Comment:Calculation based on the Chronic Kidney Disease Epidemiology Collaboration (CKD-EPI) equation refit without adjustment for race. BUN/Creatinine Ratio 23.9 LAB CHEMISTRY METHOD 09/29/2024 10:49 AM [facility] Calcium 8.0(L) 8.5 - 10.5 mg/dL LAB CHEMISTRY METHOD 09/29/2024 10:49 AM [facility] Blood Venous blood specimen / Unknown Venipuncture / Unknown 09/29/2024 6:43 AM EDT 09/29/2024 9:24 AM EDT us Mario Dejesus MD LAB BLOOD ORDERABLES Final Result [facility] [address] [place] [address], * Lipid panel (07/17/2023) LDL/HDL Ratio 3 0 - 4 Triglycerides 127 0 - 150 mg/dL Cholesterol 141 0 - 200 mg/dL HDL 53 >=40 mg/dL LDL Cholesterol 63 0 - 100 mg/dL Blood Venous blood specimen / Unknown Historical Provider MD LAB BLOOD ORDERABLES Angelia l Result * Falls Risk Assessment (05/07/2023) Falls Risk Assessment ABSTRACTED Historical Provider HEALTH MAINTENANCE Final Result * Hm Depression Screening (05/07/2023) HM Depression Screening ABSTRACTED Historical Provider HEALTH MAINTENANCE Final Result * LASHANW SCREENING DIGITAL (07/20/2020 3:36 PM EDT) Anatomical Region Laterality Modality Mammography 07/20/2020 2:39 PM EDT Narrative 07/20/2020 3:36 PM EDT [facility] Diagnostic Imaging Department [address] [place] [address] Patient: ABDULLAHIALLEN /Age/Sex: 1950 - 69 - F Unit#: [id number] Location/Status: SPDIMAM/REG CLI Mnemonic/Ordering Site: DIGSC/SPMAM Ordering Physician: LUIS GAMA MD Lashawn Screening Digital - 07/20/20 - 152 EXAM: [facility] Screening Digital EXAM DATE AND TIME: 07/20/2020 3:22 PM HISTORY: Screening. COMPARISON: 10/29/18, 10/25/17, 04/21/16, 08/21/14 TECHNIQUE: CC and MLO views of both breasts were obtained using full field digital mammography. Bilateral digital breast tomosynthesis was performed in the MLO projection. Computer aided detection with the [employer] was employed. TISSUE DENSITY: a. The breasts [...] Routine screening mammogram BILATERAL in 1 year. 23041, 75148 3341F, 7025F Dictating Physician: CLARIBEL ALBA MD Electronically Signed by: CLARIBEL ALBA MD Dic Date/Time: 07/20/20 153 Sign date/Time: 07/20/20 153 Procedure Note Claribel Alba MD - 03/28/2022 [facility] Diagnostic Imaging Department [address] [place] [address] Patient: ALLEN NEUMANN Stanislav /Age/Sex: 1950 - 69 - F Unit#: [id number] Location/Status: SPDIMAM/REG CLI [facility] Order[facility] Physician: LUIS GAMA MD Lashawn Screening Digital - 07/20/20 - 152 EXAM: Lashawn Screening Digital EXAM DATE AND TIME: 07/20/2020 3:22 PM HISTORY: Screening. COMPARISON: 10/29/18, 10/25/17, 04/21/16, 08/21/14 TECHNIQUE: CC and MLO views of both breasts were obtained using fullfield digital mammography. Bilateral digital breast tomosynthesis was performedin the MLO projection. Computer aided detection with the [employer] employed. TISSUE DENSITY: a. The breasts are [...] Routine screening mammogram BILATERAL in 1 year. 33032, 06290 3341F, 7025F Dictating Physician: CLARIBEL ALBA MD Electronically Signed by: CLARIBEL ALBA MD Dic Date/Time: 07/20/20 1535 Sign date/Time: 07/20/20 1536 Luis Gama MD IMG BI PROCEDURES Final Result * Hepatitis C Screening (03/19/2020) Hepatitis C Screening ABSTRACTED Historical Provider HEALTH MAINTENANCE Final Result * Colonoscopy (11/06/2018) Colonoscopy NO INTERPRETATION , ABSTRACTED Anatomical Region Laterality Modality Other us Historical Provider HEALTH MAINTENANCE Final Result from Last 3 Months or Most Recently Relevant to Health Maintenance Insurance [place]ICARE [place]ICAID [place] Advance Directives Documents on File Type Date Recorded Patient Plate Colorer Expl anation Health Care Decision (hx) 07/03/2023 AD MARIN DIRECTIVE Health Care Decision (hx) 07/03/2023 AD MARIN DIRECTIVE Health Care Decision (hx) 07/03/2023 AD MARIN DIRECTIVE
--- OUTSIDE RECORDS SUMMARY | 2025-02-03 17:29 | XMS_ITS | Encounter Summary ---
Author Organization [facility] Address [address] [place] [address] Care Team Providers Care Geoint Analyst Name Role Phone Glory Masters MD Primary Care Prov ider Encounter Details Date Type Department Care Team (Late Contact Info) Description 10/02/[address] [facility] Lab [address] [facility] [place] [phone] Mario Dejesus MD [address] [place] [address] Hypothyroidism, unspecified Social History Tobacco Use Types [...] Visit Gastroenterology - [address] [facility] [address] [place] [address] Guera Tejada PA [address] [place] [phone] documented as of this encounter Procedures Procedure Name Priority Date/Time Associated Diagnosis Comments THYROID STIMULATING HORMONE Routine 10/02/2024 5:42 AM EDT Hypothyroidism, unspecified documented in this encounter Results * Thyroid stimulating hormone (10/02/2024 5:42 AM EDT) TSH 1.13 0.40 - 4.00 mcIU/mL LAB CHEMISTRY METHOD 10/02/2024 9:43 AM EDT [facility] Blood Venous blood specimen / Unknown Venipuncture / Unknown 10/02/2024 5:42 AM EDT 10/02/2024 8:03 AM EDT us Mario Dejesus MD LAB BLOOD ORDERABLES Final Result [facility] [address] [place] [address], documented in this encounter Visit Diagnoses Diagnosis Hypothyroidism, unspecified documented in this encounter Care Teams Geoint Analyst Relationship Specialty Start Date End Date Glory Masters MD [address] [place] [phone] PCP - General Internal Medicine 12/06/21 10/02/24 documented as of this encounter
--- OUTSIDE RECORDS SUMMARY | 2025-02-03 17:29 | XMS_ITS | Data Portability ---
Author Organization [place] [facility] Address [address] [place] [phone] Care Team Providers Care Cognos Name Role Phone LUIS VELASQUEZ Primary Care Provider [phone] Assessment Encounter Date Assessment Date Assessment LastModified [...] 7 days -Mupirocin TID topically -Increase probiotics -Coffey tongue/oral hygiene s/p thrush -PCP follow up/ED precautions Proper Personal Protective Equipment (PPE), including gloves, eye protection and masks were donned and doffed appropriately and all equipment cleaned using approved technique with germicidal disposable wipes prior to and after care of this patient [facility]. [email or web address] Not available 07/27/2021 [...] recorded. Lab urinalysis, dipstick 2022 023 isra [facility], [address] [place] [address], [phone], 15:10:50 culture, urine 2022 023 BALTAZAR [facility] (Centralized Electronic Ordering - All Locations), Patient Can Go To The Location Of Their Choice, [id number] 06:44:42 Referral None recorded. Procedures None recorded. Surgeries None recorded. Imaging None recorded. Medication Orders doxycycline hyclate 100 mg capsule 2021 022 [facility], [address] [place], [address], 15:04:21 mupirocin 2 % topical ointment 2021 022 [facility], [address] [place], [address], 14:44:37 Patient TargetsNo targets recorded. Patient Instructions Encounter Date Encounter Id Patient Instructions Last Modified By Organization Details Last Modified Time 07/27/2021 [id number] -You were seen today for bug bite [...] Go To The Location Of Their Choice, [id number] 04/23/2022 06:44:42 04/21/1904/22/2022 URINE CULTU RE special requests NONE Not Available [facility] (Centralized Electronic Ordering - All Locations) Patient Can Go To The Location Of Their Choice, [id number] 04/23/2022 06:44:42 04/21/1904/23/2022 URINE CULTU RE culture Mixed bacter ial gianluca, indica tive of urogen ital contam inatio n. Not Available [facility] (Centralized Electronic Ordering - All Locations) Patient Can Go To The Location Of Their Choice, [id number] 04/23/2022 06:44:42 04/21/1904/23/2022 URINE CULTU RE report status FINAL 2022 Not Available [facility] (Centralized Electronic Ordering - All Locations) Patient Can Go To The Location Of Their Choice, [id number] 04/23/2022 06:44:42 04/21/1904/21/2022 urina lysis , dipst ick Appearance xcloud y Not Available [facility] [address] [place], [address], 04/21/2022 15:09:41 04/21/19 23 04/21/2022 urina lysis , dipst ick Color yellow Not Available [facility] [address], [place], [address], 04/21/2022 15:09:41 04/21/19 23 04/21/2022 urina lysis , dipst ick Glucose (ref: neg Neg Not Available [facility][Note 3] [address] [place], [address], 04/21/2022 15:09:41 04/21/19 23 04/21/2022 urina lysis , dipst ick Bilirubin (ref: neg) Neg Not Available [facility][Note 3] [address], [place], [address], 04/21/2022 15:09:41 04/21/19 23 04/21/2022 urina lysis , dipst ick Ketones (ref: neg) Neg Not Available [place] [address] [place], [address], 04/21/2022 15:09:41 04/21/19 23 04/21/2022 urina lysis , dipst ick Specific [place] (ref: 1.003 - 1.035) 1.020 Not Available [place] [address], [place], [address], 04/21/2022 15:09:41 04/21/19 23 04/21/2022 urina lysis , dipst ick Blood (ref: neg) Not Available [place] [address], [place], [address], 04/21/2022 15:09:41 04/21/19 23 04/21/2022 urina lysis , dipst ick pH (ref: 5.0-7.0) 5.0 Not Available [place] [address] [place], [address], 04/21/2022 15:09:41 04/21/19 23 04/21/2022 urina lysis , dipst ick Protein (ref: neg) Not Available [place] [address] [place], [address], 04/21/2022 15:09:41 04/21/19 23 04/21/2022 urina lysis , dipst ick Urobilinogen (ref: 0.2-1.0) 0.2 Not Available [facility] [address], [place], [address], 04/21/2022 15:09:41 04/21/19 23 04/21/2022 urina lysis , dipst ick Nitrites (ref: neg) negati ve Not Available [facility] [address], [place], [address], 04/21/2022 15:09:41 04/21/19 23 04/21/2022 urina lysis , dipst ick Leukocytes (ref: neg) Neg Not Available [facility] - [address], [address], 04/21/2022 15:09:41 04/21/19 23 04/21/2022 urina lysis , dipst ick Location [facility], [address] [place] [address], [id number] Not Available [facility] - [address], [address], 04/21/2022 15:09:41 Result Notes None recorded. Procedures Surgical History Date Name Laterality Status Provider Name and Address Organization Details Recorded Time Total Hysterectomy completed Kasey Zambrano NP [address] [place], [address], [place] [facility] 07/27/2021 14:29:38 Cholecystectomy completed Kasey Zambrano NP [address] [place], [address], [place] [facility] 07/27/2021 14:29:45 excision of bunion completed Kasey Zambrano NP [address] [place], [address], [place] [facility] 07/27/2021 14:29:54 Cataract Surgery completed Kasey Zambrano NP [address] [place], [address], [place] [facility] 07/27/2021 14:30:08 Imaging Results None recorded. Procedure Notes None recorded. Medical Equipment None Reported. Allergies Allergen ID Allergen Name Allergen Category Reaction Reaction Severity Criticality Documentation Date Start Date Code Code System Note Provider Name and Address Organization Details Recorded Time 857581 Celebrex medicatio n Not available Not available Not available 07/27/2021 77954 7 RxNorm Kasey GranadosTIERNEY connelly [address] [place], [address], [place] [facility] 14:25:13 158996 ibuprofen medicatio n Not available Not available Not available 07/27/2021 5640 RxNorm Kasey DarwinTIERNEY connelly [address], [place], [address], [place] [facility] 14:25:21 [...] Smoker Kasey Zambrano NP [address], [place], [address], [place] [facility] 07/27/2021 14:26:54 Do You Have An Advance Directive? Yes [employer] Information not available 07/27/2021 What Is Your Code Status? Full Code [employer] Information not available 07/27/2021 Within The Past 12 Months, Has It Happened That The Food You Bought Just Didn't Last And You Didn't Have Money To Get More. No [employer] Information not available 07/27/2021 Within The Past 12 Months, Have You Worried That Your Food Would Run Out Before You Got Money To Buy More. No [employer] Information not available 07/27/2021 Fall Risk: Do You Feel Unsteady When Standing Or Walking? No [employer] Information not available 07/27/2021 Excessive Alcohol Or Drug Use No [employer] Information not available 07/27/2021 Does This Patient Have A PCP? Yes [facility] Information not available 07/27/2021 Has The Patient Seen Their PCP In The Past 6 Months? Yes [facility] Information not available 07/27/2021 We Know From Many Of Our Patients That Covering All Of Their Costs Can Be Difficult At Times. This Can Cause Stress And Impact Health. In The Past Year, Have You Been Unable To Get Any Of The Following When It Was Really Needed? No [facility] Information not available 07/27/2021 What Is Your Housing Situation Today? I Have Housing [employer] Information not available 07/27/2021 Sex: Unknown Functional Status Question Answer Note LastModified by Organizat ion Details LastModified Time Do you use any illicit or recreational drugs? No [facility] Information not available 07/27/2021 Do you or have you ever used any other forms of tobacco or nicotine? No [facility] available 07/27/2021 What is your level of alcohol consumption? None [facility] Information not available 07/27/2021 Mental Status None recorded. Family History Relationship Description Onset Age of this Age Resolved Age Notes LastModified by Organization Details LastModified Time Mother Diabetes mellitus [facility] Not available 07/27 14:25:57 Mother Hypertensive disorder [facility] Not available 07/27 14:26:06 Medical History Condition Response Diabetes N Coronary Artery Disease N CHF Y Parkinson's Disease N Cancer N Dementia N Stroke N Hypothyroidism Y Depression N COPD Y Asthma N High Cholesterol Y Rheumatoid Arthritis N Pulmonary Embolism N Hypertension Y A-fib N Osteoporosis N Kidney Disease Y Gynecological HistoryNo gynecological history recorded. Obstetrics History GPAL:G 0 P 0 0 0 0 Past Encounters Encounter ID Performer Location Encounter Start Date Encounter Closed Date Diagnosis/Indication Diagnosis SNOMED-CT Code Diagnosis ICD10 Code Diagnosis IMO Codes Diagnosis Note [id number] Kasey Zambrano NP [facility] [address] [facility] [place] [address] 07/27/2021 14:17:54 07/28/2021 20:06:53 Wound cellulitis 426345709 L03.90 [id number] SHON Dang [facility] [address] [facility] [place] [address] 04/21/2022 14:43:55 04/26/2022 15:25:53 Dysuria 28317878 R30.0 Health Concerns Section Related Observation LastModified by Organization Detai ls LastModified Time None Recorded Concern Status LastModified by Organization Details LastModified Time None Recorded Advance Directives Directive Y: Payers Insurance Date Sequence Insurance Name Policy Number Policy Burgess Covered Member ID Burgess Member ID Guarantor Name 05/15/2022 1 [place]ICARE B-[place]: [employer] Jocelynn Fernando [id number] Jocelynn Fernando 05/15/2022 2 [place] [facility] Joc[facility]nn Fernando [id number] Jocelynn Fernando 05/15/2022 1 *SELF PAY* Jocelynn Fernando [id number] Jocelynn Fernando Notes Date Note Type Note [...] chills. Kasey Zambrano NP [address], [place], [address], [place] [facility] 07/27/2021 15:24:55 3 text/html 71 YO F new to provider [facility] seen today at homePMH of COPD, HTN/HLD, CKDBeing seen for dysuria, x weeksNo vaginal dc or bleedingNothing makes sxs better or worseShe is requesting testing for UTIShe denies any fever, chills, abd pain, NVD, weakness, flank pain, bloody urine. No other reported sxs or concerns today. SHON Landaverde [address], [place], [address], [place] [facility] 04/21/2022 17:38:08 OBGyn Episode No OBEpisode recorded.
--- OUTSIDE RECORDS SUMMARY | 2025-02-03 17:29 | XMS_ITS ---
Author Organization [facility] an d Nursing Care Team Providers Care Tree Chipper Name Role Phone Jose Antonio Capps Unavailable Unavailable Delilah Roblero Unavailable Unavailable Allergies and adverse reactions Code CodeSystem Substance Reaction Severity StartDate Concern Status 423741 RXNORM CeleBREX Moderate 07/09/2023 active 5640 RXNORM Ibuprofen Moderate 07/09/[address] Latex Moderate 07/09/2023 active Care Team Name Role Address Phone Organization Delilah Roblero PCP [address], [address], [facility] (Office): : [facility]ab and Nursing 07/09/2023 - 07/12/2023 Jose Antonio Capps [address] [address], [place], [address], [facility] (Office): : : [facility] and Nursing 07/09/2023 - 07/12/2023 Immunizations Immunization Status Vaccine Details Vaccine Code CodeSystem Aj e Notes TB 2 Step Mantoux Skin Test completed tuberculin skin test; unspecified formulation lotNumber: [id number] expiry: 07/08/2026 Mfg: tubersol Given 0.1 ml Left Forearm intradermally Step 1 of Multi-step with next step required 98 CVX created date: 07/10/2023 consent date: 07/10/2023 administere d date: 07/10/2023 Mental Status Section Date Assessment Total Score Description 07/12/2023 BIMS 15 cognitively int act CAM 0 No delirium ind icated PHQ-9 00 Insurance Providers Problems Problem # Description Date of onset Resolved Date Code CodeSystem Concern Status 1 CHRONIC RESPIRATORY FAILURE WITH HYPOXIA 07/09/[address] active 2 DIARRHEA, UNSPECIFIED 07/09/[address] active 3 DIVERTICULITIS OF LARGE INTESTINE WITHOUT PERFORATION OR ABSCESS WITHOUT BLEEDING 07/09/[address] active 4 ESSENTIAL (PRIMARY) HYPERTENSION 07/09/[address] active 5 GASTRO-ESOPHAGEAL REFLUX DISEASE WITHOUT ESOPHAGITIS 07/09/[address] active 6 HEREDITARY AND IDIOPATHIC NEUROPATHY, UNSPECIFIED 07/09/[address] active 7 HYPERGLYCEMIA, UNSPECIFIED 07/09/[address] active 8 HYPOTHYROIDISM, UNSPECIFIED 07/09/[address] active 9 MORBID (SEVERE) OBESITY DUE TO EXCESS CALORIES 07/09/[address] active 10 OTHER SEASONAL ALLERGIC RHINITIS 07/09/[address] active 11 OTHER SPECIFIED INTERSTITIAL PULMONARY DISEASES 07/09/[address] active 12 PURE HYPERCHOLESTEROLEMI A, UNSPECIFIED 07/09/[address] active 13 UNSPECIFIED ABDOMINAL PAIN 07/09/[address] active 14 UNSPECIFIED ASTHMA, UNCOMPLICATED 07/09/[address] active 15 WEAKNESS 07/09/[address] active Reason for Referral No Reasons for Referral Entered Social History Social History Observation Description Start Date End Date Code Code System Current Smoking Status Tobacco smoking consumption unknown 708136081 SNOMED CT Sex Assigned At Female 1950 92720-2 [facility] Gender Identity Sexual Orientation Vital Signs Code Code System Vitals Name Values and Units Timing Information 8310-5 [facility] Body Temperature Value=98.1 Units= F 07/12/2023 8867-4 [facility] Heart rate Value=67.0 Units=/min 07/2023 77758-3 [facility] O2 % BldC Oximetry Value=97.0 Units= % 07/12/2023 8462-4 [facility] Blood Pressure-Diastolic Value=71 Un its=mmHg 07/11/2023 8480-6 [facility] Blood Pressure-Systolic Okfch=143 Un its=mmHg 07/11/2023 41085-6 [facility] Pain Level Value=0.0 07/11/2023 9279-1 [facility] Respiratory Rate Value=18.0 Units=/m in 07/10/2023 04926-3 [facility] Weight Efhli=244.0 Units=Lbs 04/2023 8302-2 [facility] Height Value=64.0 Units=Inches 07/09/2023
--- OUTSIDE RECORDS SUMMARY | 2025-02-03 17:29 | XMS_ITS | Clinical Summary ---
Author Organization [facility] Address [address] [facility] [address] [place] [address] Phone Care Team Providers Care Diabetes Trainer Name Role Phone Hilda Khalil MD Primary Care Provider [phone] Allergies Active Allergy Reactions Criticality Noted Date Comments Celecoxib Rash Low 06/23/2020 Ibuprofen Rash Low 06/23/2020 Latex 10/04/2020 Other 10/04/2020 Medications atorvastatin (LIPITOR) 10 MG tablet Take 10 mg by mouth 1 (one) time each day 04/17/19 21 Active carvedilol (COREG) 6.25 MG tablet Take 6.25 mg by mouth 1 (one) time each day 04/13/19 21 Active cetirizine (ZyrTEC) 10 MG tablet TAKE TWO TABLETS BY MOUTH EVERY DAY AT BEDTIME 04/13/19 21 Active ketoconazole (NIZORAL) 2 % cream APPLY LOCALLY TWICE A DAY DIRECTED 05/20/19 21 Active levothyroxine (SYNTHROID, LEVOTHROID) 50 MCG tablet Take 50 mcg by mouth 1 (one) time each day 05/11/19 21 Active amoxicillin-cl avulanate (AUGMENTIN) 875-125 MG per tablet Take 1 tablet by mouth 2 (two) times a day 08/07/19 21 Active Nasal Allergy 24 Hour 55 MCG/ACT nasal inhaler USE 2 SPRAYS IN EACH NOSTRIL DAILY 07/15/19 21 Active montelukast (SINGULAIR) 10 MG tablet Take 10 mg by mouth every night Active triamcinolone (KENALOG) 0.147 MG/GM topical spray Apply topically 2 (two) times a day Active Acetaminophen- Pamabrom 500-25 MG tablet Take by mouth Active dexlansoprazol e (DEXILANT) [address] capsule Take 60 mg by mouth 1 (one) time each day Do not crush or chew. Active diphenhydrAMIN E (BENADRYL) 25 MG tablet Take 25 mg [...] (one) time each day 30 tablet 2 02/16/20 23 Active losartan (COZAAR) 25 MG tablet TAKE ONE TABLET BY MOUTH EVERY DAY ^1R4 30 tablet 5 10/03/19 24 Active furosemide (LASIX) 40 MG tablet TAKE TWO TABLETS BY MOUTH TWICE A DAY (PACKAGE 2 TABLETS DAILY) ^2R1 60 tablet 17 01/16/20 25 Active furosemide (LASIX) 40 MG tablet Take 2 tablets (80 mg total) by mouth 1 (one) time each day 180 tablet 5 08/14/19 25 025 Discontinued Active Problems Problem Noted Date Diagnosed [...] 06/27/2020 Hyperlipidemia 06/27/2020 Essential (primary) hypertension 06/27/2020 Encounters Date Type Department Care Team Description 01/15/2025 Refill [facility] [address] [place] [address] Butch Sharpe MD from Last 3 Months Immunizations Immunization Administration [...] EST Telemedicine [facility] [address] [address] Butch Sharpe MD [address] [address] Health Maintenance Due Date Last Done Comments Breast Cancer Screening 1950 Colorectal Cancer Screening: Annual FOBT 2001 Colorectal Cancer Screening: Colonoscopy 2001 Colorectal Cancer Screening: Sigmoidoscopy 2001 Influenza Vaccine (#1) 2024 3, 12/22/2021, 02/25/2021, Additional history exists Pneumococcal Vaccine: 50+ Years Completed 11/20/2019, 10/19/2017, 03/23/2015 Pneumococcal Vaccine: Peds (0 to 5 Years) and At-Risk Patients (6 to 49 Years) Discontinued 11/20/2019, 10/19/2017, 03/23/2015 Hepatitis B Vaccine Aged Out No longe r eligible based on patient's age to complete this topic Procedures Procedure Name Priority Date/Time Associated Diagnosis Comments PROTEIN / CREATININE RATIO, URINE Routine 02/03/2025 2:15 PM EDT ALBUMIN, URINE, RANDOM Routine 02/03/2025 2:15 PM EDT VITAMIN D 25 HYDROXY Routine 02/03/2025 1:51 PM EDT ALBUMIN Routine 02/03/2025 1:51 PM EDT MAGNESIUM Routine 02/03/2025 1:51 PM EDT PHOSPHATE ( PHOSPHORUS) Routine 02/03/2025 1:51 PM EDT CALCIUM Routine 02/03/2025 1:51 PM EDT CREATININE, BLOOD Routine 02/03/2025 1:5 1 PM EDT BUN Routine 02/03/2025 1:51 PM EDT ELECTROLYTE PANEL Routine 02/03/2025 1:5 1 PM EDT PTH, INTACT (HC) Routine 02/03/2025 1:51 PM EDT CBC AND DIFFERENTIAL Routine 02/03/2025 1:51 PM EDT from Last 3 Months Results * Protein, Total, Random Urine w/Creatinine (Protein/Creat Ratio) (02/03/2025 2:15 PM EDT) Protein Urine Random <7 <12 mg/dL See order comments Protein/Creatin ine Ratio, Urine TNP <0.2 See order comments Comment: Unable to calculate urine protein creatinine ratio due to low creatinine or protein result. 02/03/2025 2:15 PM EDT 02/03/2025 2:15 PM EDT us Butch Sharpe MD LAB URINE ORDERABLES Final Re sult Performing Organization Address [facility] de Phone Number [place] See order comments [place] [address] * Albumin, urine, random (02/03/2025 2:15 PM EDT) Creatinine, Urine 67.64 mg/dL Se e order comments Urine Microalbumin <5.0 mg/L See order comments Microalbumin/Crea tinine Ratio TNP <30 ug/mg cr See order comments Comment: Unable to calculate albumin/creatinine ratio due to low microalbumin or creatinine result. 02/03/2025 2:15 PM EDT 02/03/2025 2:15 PM EDT us Butch Sharpe MD LAB URINE ORDERABLES Final Re sult Performing Organization Address [facility] Co de Phone Number [place] See order comments [place] [address] * Creatinine (02/03/2025 1:51 PM EDT) Creatinine Serum 1.12 0.5 - 1.4 mg/dL See order comments eGFR (Calc) 48 See orde r comments Comment: Chronic Kidney Disease: Estimated GFR < 60 mL/min/1.73m2 Severe Kidney Disease: Estimated GFR < 15 mL/min/1.73m2 02/03/2025 1:51 PM EDT 02/03/2025 1:51 PM EDT Butch Sharpe MD LAB BLOOD ORDERABLES Final Re sult [place] See order comments [place] [address] * (ABNORMAL) PTH, Intact (02/03/2025 1:51 PM EDT) Parathyroid Hormone, Intact 84.4(H) 8.7 - 77.1 pg/mL See order comments 02/03/2025 1:51 PM EDT 02/03/2025 1:51 PM EDT Butch Sharpe MD LAB [id number] SOLICITED RESULTS Final Result Performing Organization Address [facility] Co de Phone Number [place] See order comments [place] [address] * Vitamin D 25 Hydroxy (02/03/2025 1:51 PM EDT) Vitamin D, 25-Hydroxy 37.5 >30 ng/mL See order comments Comment: Health Based Reference Values* < 20 ng/mL Deficient 20-30 ng/mL Insufficient > 30 ng/mL Sufficient *Kolby GALDAMEZ. N Engl J Med. 2007;357:266-280 There is no well-established upper level of normal vitamin D levels. Some laboratories use 50 ng/mL as an upper limit of normal. However, toxicity is patient-dependent and may occur at any level. Careful correlation with the patient's presentation is necessary and, if there is concern for vitamin D toxicity, treatment should be considered irrespective of the serum level. Care must be taken in interpreting Vitamin D results from different laboratories and methodologies. Published data demonstrated that results from patients undergoing hemodialysis may show a negative bias when tested with various automated 25-OH vitamin D assays when compared to LC-MS/MS. When testing samples from patients whose predominant form of Vitamin D is Vitamin D2, such as patients receiving Vitamin D2 supplementation, results that are subtherapeutic should be confirmed with another method such as LC-MS/MS. 02/03/2025 1:51 PM EDT 02/03/2025 1:51 PM EDT us Butch Sharpe MD LAB BLOOD ORDERABLES Final Re sult [place] See order comments [place] [address] * (ABNORMAL) CBC and Differential (02/03/2025 1:51 PM EDT) WBC 6.7 4.8 - 10.8 X10*3/uL See order comments RBC 4.61 4.20 - 5.50 X10*6/uL See order comments Hgb 13.1 12.0 - 16.0 g/dl See order comments Hematocrit 41.1 37.0 - 47.0 % See order comments MCV 89.2 80.0 - 98.0 fL See order comments MCH 28.4 27.0 - 33.0 pg See order comments MCHC 31.9 31.0 - 35.0 g/dl See order comments RDW 14.6 11.0 - 16.0 % See order comments Platelets 212 160 - 400 X10*3/uL See order comments MPV 10.9 9.4 - 12.3 fL See order comments Neutrophils % Auto 64.6 45 - 73 % See order comments Immature Granulocytes 0.2 0.0 - 0.4 % See order comments Lymphocytes Relative 23.3 20 - 40 % See order comments Monocytes 7.1 2 - 11 % See order comments Eosinophils Relative 4.2(H) 0 - 4 % See order comments Basophils Relative 0.6 0 - 2 % See order comments nRBC Count 0.0 0.0 - 0.2 /100WBC See order comments Neutrophils Absolute 4.3 2.0 - 8.3 x10*3/uL See order comments Immature Grans (Absolute) 0.01 0.00 - 0.03 X10*3/uL See order comments Lymphocytes Absolute 1.6 1.2 - 4.9 X10*3/uL See order comments Monocytes Absolute 0.5 0.1 - 1.2 X10*3/uL See order comments Eosinophils Absolute 0.3 0.0 - 0.4 X10*3/uL See order comments Basophils Absolute 0.0 0.0 - 0.2 X10*3/uL See order comments NRBC Absolute 0.000 0.0 - 0.012 X10*3/uL See order comments 02/03/2025 1:51 PM EDT 02/03/2025 1:51 PM EDT us Butch Sharpe MD LAB BLOOD ORDERABLES Final Re sult Performing Organization Address [facility] de Phone Number [place] See order comments [place] [address] * BUN (02/03/2025 1:51 PM EDT) BUN 15 9 - 16 mg/dL See order comments 02/03/2025 1:51 PM EDT 02/03/2025 1:51 PM EDT us Butch Sharpe MD LAB BLOOD ORDERABLES Final Re sult Performing Organization Address [facility] Co de Phone Number [place] See order comments [place] [address] * Phosphorus (02/03/2025 1:51 PM EDT) Phosphorus, Serum 3.0 2.7 - 4.5 mg/dL See order comments 02/03/2025 1:51 PM EDT 02/03/2025 1:51 PM EDT us Butch Sharpe MD LAB BLOOD ORDERABLES Final Re sult Performing Organization Address [facility] Co de Phone Number [place] See order comments [place] [address] * Magnesium (02/03/2025 1:51 PM EDT) Magnesium 2.4 1.6 - 2.6 mg/dL See order comments 02/03/2025 1:51 PM EDT 02/03/2025 1:51 PM EDT us Butch Sharpe MD LAB BLOOD ORDERABLES Final Re sult Performing Organization Address [facility] Phone Number [place] See order comments [place] [address] * Calcium (02/03/2025 1:51 PM EDT) Calcium 8.9 8.4 - 10.2 mg/dL See order comments 02/03/2025 1:51 PM EDT 02/03/2025 1:51 PM EDT us Butch Sharpe MD LAB BLOOD ORDERABLES Final Re sult Performing Organization Address [facility] Phone Number [place] See order comments [place] [address] * Albumin (02/03/2025 1:51 PM EDT) Albumin 4.0 3.5 - 5.0 g/dL See order comments 02/03/2025 1:51 PM EDT 02/03/2025 1:51 PM EDT us Butch Sharpe MD LAB BLOOD ORDERABLES Final Re sult Performing Organization Address [facility] Phone Number [place] See order comments [place] [address] * Electrolyte panel (02/03/2025 1:51 PM EDT) Sodium 140 135 - 145 mmol/L See order comments Potassium 4.9 3.3 - 5.1 mmol/L See order comments Chloride 103 96 - 108 mmol/L See order comments Bicarbonate (CO2) 29 22 - 29 mmol/L See order comments Anion Gap 13 12 - 20 See order comments 02/03/2025 1:51 PM EDT 02/03/2025 1:51 PM EDT us Butch Sharpe MD LAB BLOOD ORDERABLES Final Re sult [place] See order comments [place] [address] from Last 3 Months Insurance Medicare Medicaid [place] Medicaid [place] Care Teams Diabetes Trainer Relationship Specialty Start Date End Date Hilda Khalil MD [address] [place], [place] PCP - General Internal Medicine 08/13/24
--- OUTSIDE RECORDS SUMMARY | 2025-02-03 17:29 | XMS_ITS | Encounter Summary ---
Author Organization [facility] Address [address] [facility] [address] [place] [address] Phone Care Team Providers Care Computer Systems Auditor Name Role Phone Hilda Khalil MD Primary Care Provider [phone] Reason for Visit * Reason Comments Med Refill Encounter Details Date Type Department Care Team (Late st Contact Info) Description 05/04/2023 Refill [facility] [address] [facility] [address] [place] [address] Butch Sharpe MD [address] [address] Social History Tobacco Use [...] Telemedicine [facility] [address] [facility] [address] [place] [address] Butch Sharpe MD [facility] [address] [place] [address] documented as of this encounter Visit Diagnoses Not on filedocumented in this encounter Care Teams Computer Systems Auditor Relationship Specialty Start Date End Date Hilda Khalil MD [address] [place], [place] PCP - General Internal Medicine 08/13/24 documented as of this encounter
--- OUTSIDE RECORDS SUMMARY | 2025-02-03 17:29 | XMS_ITS | Encounter Summary ---
Author Organization [facility] Address [address] [place] [address] Care Team Providers Care Liquor Merchant Name Role Phone Unavailable Primary Care Provider Unavailabl e Encounter Details Date Type Department Care Team (Late Contact Info) Description 10/03/2024 Lab Requisition [facility] [address] [facility] [place] [phone] Mario Dejesus MD [address] [place] [address] Essential (primary) hypertension; Hypothyroidism, unspecified; Pure hypercholesterolemia [...] Visit Gastroenterology - [address] [facility] [address] [place] [address] Guera Tejada PA [address] [place] [phone] documented as of this encounter Visit Diagnoses Diagnosis Essential (primary) hypertension Unspecified essential hypertension Hypothyroidism, unspecified Pure hypercholesterolemia, unspecified documented in this encounter
--- OUTSIDE RECORDS SUMMARY | 2025-02-03 17:29 | XMS_ITS | Encounter Summary ---
Author Organization [facility] Address [address] [place] [address] Care Team Providers Care Tube Turner Name Role Phone Glory Masters MD Primary Care Prov ider Encounter Details Date Type Department Care Team (Late Contact Info) Description 09/26/2024 Lab Requisition [facility] [address] [facility] [place] [address] Mario Dejesus MD [address] [place] [address] Essential (primary) hypertension; Hypothyroidism, unspecified Social History [...] Gastroenterology - [address] [facility] [address] [place] [address] Guera Tejada PA [address] [place] [phone] documented as of this encounter Procedures Procedure Name Priority Date/Time Associated Diagnosis Comments COMPLETE BLOOD COUNT Routine 09/29/2024 6:43 AM EDT Essential (primary) hypertension Hypothyroidism, unspecified MAGNESIUM Routine 09/29/2024 6:43 AM EDT Essential (primary) hypertension Hypothyroidism, unspecified BASIC METABOLIC PANEL Routine 09/29/2024 6:43 AM EDT Essential (primary) hypertension Hypothyroidism, unspecified documented in this encounter Results * Magnesium (09/29/2024 6:43 AM EDT) [facility] Magnesium 2.1 1.9 - 2.6 mg/dL LAB CHEMISTRY METHOD 09/29/2024 10:49 AM EDT [facility] Blood Venous blood specimen / Unknown Venipuncture / Unknown 09/29/2024 6:43 AM EDT 09/29/2024 9:24 AM EDT us Mario Dejesus MD LAB BLOOD ORDERABLES Final Result [facility] [address] [place] [address], * (ABNORMAL) Complete blood count (09/29/2024 6:43 AM EDT) [facility] WBC 7.6 4.8 - 10.8 K/mcL LAB HEMETOLOGY METHOD 09/29/2024 9:41 AM EDT [facility] RBC 3.50(L) 3.80 - 4.80 M/mcL LAB HEMETOLOGY METHOD 09/29/2024 9:41 AM EDT [facility] Hemoglobin 10.3(L) 11.5 - 16.0 g/dL LAB HEMETOLOGY METHOD 09/29/2024 9:41 AM EDT [facility] Hematocrit 32.0(L) 35.0 - 47.0 % LAB HEMETOLOGY METHOD 09/29/2024 9:41 AM EDT [facility] MCV 90.7 79.0 - 98.0 FL LAB HEMETOLOGY METHOD 09/29/2024 9:41 AM [facility] MCH 29.2 27.0 - 32.0 pcg LAB HEMETOLOGY METHOD 09/29/2024 9:41 AM EDT [facility] MCHC 32.2 32.0 - 37.0 g/dL LAB HEMETOLOGY METHOD 09/29/2024 9:41 AM EDT [facility] RDW 14.6 11.0 - 15.0 % LAB HEMETOLOGY METHOD 09/29/2024 9:41 AM [facility] Platelets 300 130 - 400 K/mcL LAB HEMETOLOGY METHOD 09/29/2024 9:41 AM T [facility] MPV 11.4(H) 7.0 - 11.0 FL LAB HEMETOLOGY METHOD 09/29/2024 9:41 AM T [facility] NRBC 0.0 <1.0 % LAB HEMETOLOGY METHOD 09/29/2024 9:41 AM [facility] NRBC Absolute 0.00 <0.10 K/mcL LAB HEMETOLOGY METHOD 09/29/2024 9:41 AM T [facility] Blood Venous blood specimen / Unknown Venipuncture / Unknown 09/29/2024 6:43 AM EDT 09/29/2024 9:24 AM EDT us Mario Dejesus MD LAB BLOOD ORDERABLES Final Result [facility] [address] [place] [address], * (ABNORMAL) Basic metabolic panel (09/29/2024 6:43 AM EDT) Sodium 137 133 - 145 mmol/L LAB CHEMISTRY METHOD 09/29/2024 10:49 AM [facility] Potassium 4.0 3.5 - 5.5 mmol/L LAB CHEMISTRY METHOD 09/29/2024 10:49 AM [facility] Chloride 98 96 - 110 mmol/L LAB CHEMISTRY METHOD 09/29/2024 10:49 AM [facility] CO2 34(H) 21 - 32 mmol/L LAB CHEMISTRY METHOD 09/29/2024 10:49 AM [facility] Anion Gap 5 3 - 11 LAB CHEMISTRY METHOD 09/29/2024 10:49 AM [facility] Glucose 73 70 - 100 mg/dL LAB CHEMISTRY METHOD 09/29/2024 10:49 AM [facility] BUN 27(H) 5 - 25 mg/dL LAB CHEMISTRY METHOD 09/29/2024 10:49 AM [facility] Creatinine 1.13(H) 0.50 - 1.10 mg/dL LAB CHEMISTRY METHOD 09/29/2024 10:49 AM [facility] eGFR 52(L) >=60 mL/min/1. 73m2 LAB CHEMISTRY METHOD 09/29/2024 10:49 AM [facility] Comment:Calculation based on the Chronic Kidney Disease Epidemiology Collaboration (CKD-EPI) equation refit without adjustment for race. BUN/Creatinine Ratio 23.9 LAB CHEMISTRY METHOD 09/29/2024 10:49 AM [facility] Calcium 8.0(L) 8.5 - 10.5 mg/dL LAB CHEMISTRY METHOD 09/29/2024 10:49 AM [facility] Blood Venous blood specimen / Unknown Venipuncture / Unknown 09/29/2024 6:43 AM EDT 09/29/2024 9:24 AM EDT us Mario B Jagadeesan MD LAB BLOOD ORDERABLES Final Result [facility] [address] [place] [address], documented in this encounter Visit Diagnoses Diagnosis Essential (primary) hypertension Unspecified essential hypertension Hypothyroidism, unspecified documented in this encounter Care Teams Tube Turner Relationship Specialty Start Date End Date Glory Masters MD [address] [place] [phone] PCP - General Internal Medicine 12/06/21 10/02/24 documented as of this encounter
== END 2025-02-03 13:32 | disposition home or self-care (01) ==
LOC: HO.LAB 13:31
PROVIDERS: PCP Internal Medicine; Visit Provider Internal Medicine Nephrology
DX: N18.31 Chronic kidney disease, stage 3a (principal); K21.9 Gastro-esophageal reflux disease without esophagitis; E78.5 Hyperlipidemia, unspecified; E03.9 Hypothyroidism, unspecified; E55.9 Vitamin D deficiency, unspecified
CPT/HCPCS: 36415; 80051; 80053; 80061; 81001; 82040; 82043; 82306; 82310; 82565; 82570; 83735; 83970; 84100; 84156; 84443; 84520; 85025